=== PATIENT | male | born 1945 | race Caucasian/White ===

== ENCOUNTER 2016-11-18 14:08 | Emergency (ER) | END 2016-11-18 14:44 | disposition left against medical advice (07) | LOC: UCEAST 14:08 | DX: J02.9 Acute pharyngitis, unspecified (principal); R05 Cough; Z53.21 Procedure and treatment not carried out due to patient leaving prior to being seen by health care provider ==

== ENCOUNTER 2016-11-20 17:55 | Emergency (ER) | payer SELFPAY ==
[2016-11-20] MEDS ORDERED: Morphine INJ* 2 MG/ML 1 ML SYRINGE IV ONE (19:38)
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
[2016-11-20 20:56] LABS: Hematocrit 42 % (42-52); Hemoglobin 13.8 g/dl (14.0-18.0); Mean Corpuscular HGB Conc 33 g/dl (31-36); Mean Corpuscular Hemoglobin 31 pg (27-31); Mean Corpuscular Volume 94 fL (80-94); Mean Platelet Volume 8 um3 (7.4-10.4); Red Blood Count 4.44 10^6/ul (4.0-5.4); Red Cell Distribution Width 14 % (10.5-15); White Blood Count 12.2 10^3/ul (3.5-10.8)
[2016-11-20 21:02] LABS: Urine Bacteria Absent (Absent); Urine Bilirubin Negative (Negative); Urine Glucose 3+(>=500 mg/dL) (Negative); Urine Nitrite Negative (Negative)
[2016-11-20 21:10] LABS: Albumin 4.6 g/dL (3.2-5.2); BUN/Creatinine Ratio 21.9 (8-20); Calcium 9.2 mg/dL (8.6-10.3); EGFR African American 81.7 (>60); EGFR Non-African American 63.5 (>60); Globulin 2.8 g/dL (2-4); Potassium 4.1 mmol/L (3.5-5.0); Total Bilirubin 0.3 mg/dL (0.2-1.0); Total Protein 7.4 g/dL (6.4-8.9)
[2016-11-20] MEDS ORDERED: Iohexol 300* (CONTRAST) 10 ML SDV IV ONE (21:15)
[2016-11-20] MEDS ORDERED: Iodixanol 320 (CONTRAST) 100 ML SDV IV ONE (21:16)
[2016-11-20 22:04] LABS: Troponin I 0.03 ng/mL (<0.04)
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
[2016-11-20] MEDS ORDERED: Tetan/Diph/Pertus SYR(Tdap)* 0.5 ML SYR(BOOSTRIX) use SYR IM ONE (22:29)
[2016-11-20 22:50] VITALS: BP 125/67
[2016-11-20] MEDS ORDERED: oxyCODONE/Acetamin 5/325 MG* TAB PO ONE (22:51)
== END 2016-11-20 23:18 | disposition home or self-care (01) ==
LOC: ED 17:55
DX: S50.11XA Contusion of right forearm, initial encounter (principal); R07.9 Chest pain, unspecified; R05 Cough; M79.1 Myalgia; V49.9XXA Car occupant (driver) (passenger) injured in unspecified traffic accident, initial encounter; Y93.89 Activity, other specified; Y92.9 Unspecified place or not applicable
CPT/HCPCS: 36415; 70450; 71260; 72125; 74177; 80053; 81003; 81015; 82550; 83605; 84484; 85025; 90715; 93005; 99283; A9270-GY; J2270; Q9967

== ENCOUNTER 2017-03-09 18:31 | Emergency (ER) | payer BC, OTHER ==
--- NOTE | 2017-03-09 20:25 | RAD ---
INDICATION: Right lower extremity swelling. COMPARISON: Comparison is made with a prior right lower extremity venous duplex study from January 09, 2011. TECHNIQUE: Multiple real-time, color flow and Doppler tracings of the right lower extremity were obtained. FINDINGS: The common femoral and profunda femoral veins demonstrate normal compressibility, augmentation with compression and phasic response with respiration. The mid and distal femoral vein is duplicated. There is chronic occlusive thrombus in one limb of the duplication the other limb appears patent without evidence for thrombus. The popliteal vein is also duplicated. One limb of the duplication is patent without thrombus and the other limb is partially occluded with age indeterminate thrombus. The posterior tibial and peroneal veins demonstrate normal compressibility and augmentation with compression. IMPRESSION: 1. AGE-INDETERMINATE DEEP VENOUS THROMBUS IN ONE LIMB OF THE DUPLICATED POPLITEAL VEIN. 2. CHRONIC DEEP VENOUS THROMBUS IN ONE LIMB OF THE DUPLICATED FEMORAL VEIN.
[2017-03-09 20:37] LABS: Hematocrit 38 % (42-52); Hemoglobin 13.1 g/dl (14.0-18.0); Mean Corpuscular HGB Conc 34 g/dl (31-36); Mean Corpuscular Hemoglobin 31 pg (27-31); Mean Corpuscular Volume 90 fL (80-94); Mean Platelet Volume 8 um3 (7.4-10.4); Red Blood Count 4.25 10^6/ul (4.0-5.4); Red Cell Distribution Width 13 % (10.5-15); White Blood Count 8.6 10^3/ul (3.5-10.8)
[2017-03-09 20:52] LABS: Albumin 3.9 g/dL (3.2-5.2); BUN/Creatinine Ratio 21.9 (8-20); Calcium 9.5 mg/dL (8.6-10.3); EGFR African American 71.5 (>60); EGFR Non-African American 55.6 (>60); Globulin 2.7 g/dL (2-4); Potassium 4.1 mmol/L (3.5-5.0); Total Bilirubin 0.3 mg/dL (0.2-1.0); Total Protein 6.6 g/dL (6.4-8.9)
[2017-03-09] MEDS ORDERED: Iodixanol* (CONTRAST) 320 MG/ML 100 ML SDV IV ONE (20:55)
--- NOTE | 2017-03-09 21:33 | RAD ---
INDICATION: Proximal DVT and evaluate for pulmonary embolism. COMPARISON: Comparison is made with a prior CT of the chest from November 20, 2016. TECHNIQUE: A CT angiogram of the chest was performed with intravenous following intravenous injection of 89 ml of Visipaque 320 nonionic contrast. Contiguous axial sections were obtained from the lung apices through the lung bases. Images were reconstructed in the coronal and sagittal planes. FINDINGS: There is good opacification of the pulmonary arteries. No intraluminal filling defect or pulmonary embolism is seen. The heart is within normal limits in size. There are coronary artery calcifications present. No pericardial effusion is present. The thoracic aorta is normal in caliber and demonstrates homogeneous contrast opacification. No significant enlarged mediastinal or hilar lymph nodes are seen. There is mild dependent bilateral lower lobe subsegmental atelectasis. The lungs are otherwise clear. No pleural effusion is seen. No significant focal osseous abnormality is seen. IMPRESSION: NO EVIDENCE FOR PULMONARY EMBOLISM.
[2017-03-09] MEDS ORDERED: Rivaroxaban TAB(*) 15 MG PO ONE (21:45)
[2017-03-09 23:10] VITALS: BP 123/71
--- NOTE | 2017-03-27 13:12 | ED ---
Delaney Gipson Gabriel, scribed for Devin Pruett MD on 03/09/17 at 1940 . Lower Extremity - HPI Summary HPI Summary: This patient is a 71 year old M presenting to [facility] accompanied by with a chief complaint of right leg pain since 4 days ago. The patient rates the pain 3 /10 in severity. Patient reports swelling, weakness, and sciatic pain on sitting. Patient denies bowel incontinence. Was recently on a vacation in [place] that required frequent walking and he collapsed. - History of Current Complaint Chief Complaint: EDExtremityLower Stated Complaint: PAIN AND SWOLLEN IN RT LEG Time Seen by Provider: 03/09/17 19:34 Hx Obtained From: Patient Onset of Pain: Days - 4 Onset/Duration: Still Present Pain Intensity: 3 Pain Scale Used: 0-10 Numeric Associated Signs And Symptoms: Positive: Negative - bowel incontinence, Swelling , Redness Able to Bear Weight: Yes - Allergies/Home Medications Allergies/Adverse Reactions: Allergies Allergy/AdvReac Type Severity Reaction Status Date / Time Adhesive Tape [Silk Tape] Allergy Unknown Verified 03/09/17 18:33 Reaction Details Latex Allergy Swelling Verified 03/09/17 18:33 PMH/Surg Hx/FS Hx/Imm Hx Previously Healthy: No Endocrine/Hematology History: Reports: Hx Anticoagulant Therapy, Hx Diabetes Denies: Hx Sickle Cell Disease, Hx Thyroid Disease, Hx Anemia, Hx Unexplained Bleeding Cardiovascular History: Reports: Hx Cardiomegaly, Hx Coronary Artery Disease, Hx Deep Vein Thrombosis, Hx Hypercholesterolemia, Hx Peripheral Vascular Disease , Other Cardiovascular Problems/Disorders - BLOOD CLOTS TO LEGS X2 Denies: Hx Aneurysm, Hx Angina, Hx Angioplasty, Hx Auto Implanted Cardiovert Defib, Hx Cardiac Arrest, Hx Congenital Heart Disease, Hx Congestive Heart Failure, Hx Embolism, Hx Hypotension, Hx Hypertension, Hx Pacemaker/ICD, Hx Rheumatic Fever, Hx Syncope, Hx Valvular Heart Disease Respiratory History: Reports: Hx Asthma, Hx Chronic Bronchitis, Hx Pneumonia, Hx Sleep Apnea, Other Respiratory Problems/Disorders - FREQUENT PNEUMONIA Denies: Hx Pulmonary Embolism, Hx Seasonal Allergies GI History: Reports: Other GI Disorders - 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 Denies: Hx Cirrhosis, Hx Crohn's Disease, Hx Diverticulosis, Hx Gall Bladder Disease, Hx Gastroesophageal Reflux Disease, Hx Gastrointestinal Bleed, Hx Hiatal Hernia, Hx Irritable Bowel, Hx Jaundice, Hx Obstructive Bowel, Hx Ileostomy, Hx Pyloric Stenosis, Hx Ulcer History: Reports: Other Problems/Disorders - Continent urinary diversion at [facility] Denies: Hx Acute Renal Failure, Hx Benign Prostatic Hyperplasia, Hx Chronic Renal Failure, Hx Dialysis, Hx Kidney Infection, Hx Kidney Stones Musculoskeletal History: Reports: Hx Arthritis, Hx Back Problems, Hx Bursitis - KNEE, Other Musculoskeletal History - osteomyleitis Denies: Hx Gout, Hx Osteoporosis, Hx Scoliosis Sensory History: Reports: Hx Contacts or Glasses - reading Denies: Hx Hearing Aid Opthamlomology History: Reports: Hx Contacts or Glasses - reading Neurological History: Reports: 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 Denies: Hx Seizures, Hx Spinal Cord Injury, Hx Transient Ischemic Attacks ( TIA) Psychiatric History: Denies: Hx Panic Disorder - Cancer History Cancer Type, Location and Year: prostate cancer Hx Chemotherapy: No Hx Radiation Therapy: Yes - Proton Radiation Hx Palliative Cancer Treatment: No - Surgical History Surgery Procedure, Year, and Place: appendix, tonsils, prostatectomy, urinary incontinence diversion 2002, rt foot x9, left foot x5, hernia repair,cardiac stent 04/08/13 pt has stent card please make copy for mri scan Hx Anesthesia Reactions: No - Immunization History Date of Influenza Vaccine: 11/2016 Infectious Disease History: No Infectious Disease History: Denies: Hx Clostridium Difficile, Hx Hepatitis, Hx Human Immunodeficiency Virus (HIV), Hx of Known/Suspected MRSA, Hx Shingles, Hx Tuberculosis, Hx Known/ Suspected VRE, Hx Known/Suspected VRSA, History Other Infectious Disease, Traveled Outside the [place] in Last 30 Days - Family History Known Family History: Positive: Other - neg: anaesthesia reaction - Social History Alcohol Use: Occasionally Alcohol Amount: 1 drink per month Hx Substance Use: No Substance Use Type: Reports: None Hx Tobacco Use: No Smoking Status (MU): Never Smoked Tobacco Have You Smoked in the Last Year: No Review of Systems Negative: Fever, Chills Negative: Erythema Negative: Sore Throat Negative: Chest Pain Negative: Shortness Of Breath, Cough Gastrointestinal: Negative - bowel incontinence Negative: Abdominal Pain, Vomiting, Nausea Negative: dysuria, hematuria Positive: Other - pain in LE, swelling in LE . Negative: Myalgia, Edema Negative: Rash Neurological: Negative - dizziness, Other - sciatic pain on sitting Positive: Weakness All Other Systems Reviewed And Are Negative: Yes Physical Exam - Summary Physical Exam Summary: Constitutional: Well-developed, Well-nourished, Alert. (-) Distressed Skin: Warm, Dry HENT: Normocephalic; Atraumatic Eyes: Conjunctiva normal Neck: Musculoskeletal ROM normal neck. (-) JVD, (-) Stridor, (-) Tracheal deviation Cardio: Rhythm regular, rate normal, Heart sounds normal; Intact distal pulses; The pedal pulses are 2+ and symmetric. Radial pulses are 2+ and symmetric. (-) Murmur Pulmonary/Chest wall: Effort normal. (-) Respiratory distress, (-) Wheezes, (-) Rales Abd: Soft, (-) Tenderness, (-) Distension, (-) Guarding, (-) Rebound Musculoskeletal: (-) Edema. Extremities: Right calf tenderness, venous stasis, and skins changes in both LE below the knee Lymph: (-) Cervical adenopathy Neuro: Alert, Oriented x3 Psych: Mood and affect Normal Triage Information Reviewed: Yes Vital Signs On Initial Exam: Initial Vitals Temp Pulse Resp BP Pulse Ox 97.8 F 81 16 119/84 96 03/09/17 18:33 03/09/17 18:33 03/09/17 18:33 03/09/17 18:33 03/09/17 18:33 Vital Signs Reviewed: Yes Diagnostics - Vital Signs Vital Signs Temp Pulse Resp BP Pulse Ox 03/09/17 18:33 97.8 F 81 16 119/84 96 - Laboratory Result Diagrams: 03/09/17 20:30 03/09/17 20:30 Lab Statement: Any lab studies that have been ordered have been reviewed, and results considered in the medical decision making process. - CT CTA Chest/Thorax CT Interpretation Completed By: Radiologist - NO EVIDENCE FOR PULMONARY EMBOLISM. ED physician has reviewed this report and agrees. - Additional Comments Diagnostic Additional Comments: Venous Doppler study reveals, per radiologist, 1. AGE-INDETERMINATE DEEP VENOUS THROMBUS IN ONE LIMB OF THE DUPLICATED POPLITEAL VEIN. 2. CHRONIC DEEP VENOUS THROMBUS IN ONE LIMB OF THE DUPLICATED FEMORAL VEIN. ED physician has reviewed this radiology report and agrees. Lower Extremity Course/Dx - Course Assessment/Plan: This patient is a 71 year old M presenting to [facility] accompanied by with a chief complaint of right leg pain since 4 days ago. The patient rates the pain 3/10 in severity. Patient reports swelling, weakness , and sciatic pain on sitting. Patient denies bowel incontinence. Was recently on a vacation in [place] that required frequent walking and he collapsed. Blood tests were drawn. Venous Doppler study reveals, per radiologist, 1. AGE- INDETERMINATE DEEP VENOUS THROMBUS IN ONE LIMB OF THE DUPLICATED POPLITEAL VEIN. 2. CHRONIC DEEP VENOUS THROMBUS IN ONE LIMB OF THE DUPLICATED FEMORAL VEIN. CTA Chest/ Thorax reveal, per radiologist, NO EVIDENCE FOR PULMONARY EMBOLISM. In the ED course the patient was given Iodixanol and Rivaroxaban. Patient will be discharged with prescription for Rivaroxaban and follow up from [facility]. The patient is agreeable with this plan. - Diagnoses Provider Diagnoses: DVT (deep venous thrombosis) Discharge - Discharge Plan Condition: Stable Disposition: HOME Prescriptions: Rivaroxaban [Xarelto Starter Pack 15 & 20 mg] 1 packet PO SEE INSTRUCTIONS #1 packet Patient Education Materials: Rivaroxaban (By mouth), Deep Venous Thrombosis (ED ) Referrals: [facility] PHYSICIAN REFERRAL [Outside] Additional Instructions: Return to emergency department for new or worsening symptoms. Follow up with [facility] provider in 3 days. The documentation as recorded by the Delaney rawls Gabriel accurately reflects the service I personally performed and the decisions made by , Devin Pruett MD.
== END 2017-03-09 23:10 | disposition home or self-care (01) ==
LOC: ED 18:31
DX: I82.511 Chronic embolism and thrombosis of right femoral vein (principal); E11.9 Type 2 diabetes mellitus without complications; Z79.01 Long term (current) use of anticoagulants; I25.10 Atherosclerotic heart disease of native coronary artery without angina pectoris; E78.00 Pure hypercholesterolemia, unspecified; Z86.718 Personal history of other venous thrombosis and embolism; I73.9 Peripheral vascular disease, unspecified; I51.7 Cardiomegaly
CPT/HCPCS: 36415; 71275; 80053; 85027; 85610; 85730; 96374; 99284; Q9967

== ENCOUNTER 2017-03-11 18:34 | Emergency (ER) | payer BC ==
[2017-03-11] MEDS ORDERED: Ketorolac INJ* 60 MG/2 ML VIAL IM ONE (20:33)
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
[2017-03-11 21:34] LABS: Hematocrit 40 % (42-52); Hemoglobin 13.5 g/dl (14.0-18.0); Mean Corpuscular HGB Conc 34 g/dl (31-36); Mean Corpuscular Hemoglobin 31 pg (27-31); Mean Corpuscular Volume 90 fL (80-94); Mean Platelet Volume 7 um3 (7.4-10.4); Red Cell Distribution Width 13 % (10.5-15); White Blood Count 8.1 10^3/ul (3.5-10.8)
[2017-03-11 21:49] LABS: Albumin 4.3 g/dL (3.2-5.2); BUN/Creatinine Ratio 23.6 (8-20); Calcium 9.2 mg/dL (8.6-10.3); EGFR African American 85.1 (>60); EGFR Non-African American 66.2 (>60); Globulin 2.5 g/dL (2-4); Potassium 4.3 mmol/L (3.5-5.0); Total Bilirubin 0.2 mg/dL (0.2-1.0); Total Protein 6.8 g/dL (6.4-8.9)
[2017-03-11 22:38] LABS: Erythrocyte Sed Rate 13 mm/Hr (0-40)
[2017-03-11] MEDS ORDERED: HYDROcodone/ACETAMIN 5-325 MG* 1 TAB PO ONE ×2 (23:09)
--- NOTE | 2017-03-11 23:09 | ED ---
Lower Extremity <Ivon Goldman - Last Filed: 03/12/17 00:32> - HPI Summary HPI Summary: Patient presents to the ED with CC of right calf pain which is worse than 2 days when he was seen here for pain in the calf which was dx as a DVT. Denies worsening neuropathy. He was seen by Dr. Pruett and given xarelto starter pack. Impressions of the [place] indicated there is a 1> AGE INTDETERMINATE DEEP VENOUS THROMBUS IN ONE LIMP OF THE DUPLICATED POPLITEAL VEIN. 2. CHRONIC DEEP VENOUS THROMBUS IN ONE LIMB OF THE DUPLICATED FEMORAL VEIN. Chest CT also performed which shows: Impression: NO EVIDENCE OF PULMONARY EMBOLISM. He returns today with worsening pain. Pain is discretely located over the anterior knee and posterior calf. Worse with walking, better with rest. He states he first noticed the pain when he stepped off his stairs to go to work. He felt immediate pain and a "hard" feeling down the calf. He had to use his cane to go to work. 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 He states "something definitely has gotten worse" when discussing his symptoms. Denies chest pain or SOB. He was able to belt picker the medication which he began the same day. Hx includes ostomy s/p prostate CA and removal of prostate, right lower extremity cellulitis, chronic venous stasis, metatarsal removal in right foot, neuropathy, NM, HCL, 2 previous episodes of thrombosis (most recently 10 years ago) and was placed on coumadin (after 1st DVT) for several years. He was also previously placed on Clopidigrel for 4 years s/p 2nd spontaneous DVT. He also takes a baby aspirin daily through his correctional manager Dr. Jones which he continues to take. Prior to this episode (2 days ago) of spontaneous DVT, he had not been taking or prescribed any other anticoagulants. He has recently moved back and has not been established with his new physician Dr. Siegel, however has an appt tomorrow morning at 9am. Denies fevers, sweats, chills. - History of Current Complaint Hx Obtained From: Patient, Family/Digital Designer Onset of Pain: Immediate Onset/Duration: Hours Severity Initially: Moderate Severity Currently: Moderate Pain Intensity: 7 Pain Scale Used: 0-10 Numeric Timing: Constant Location: Is Discrete @ - right posterior calf Character Of Pain: Aching Associated Signs And Symptoms: Positive: Redness, Bruising Alleviating Factor(s): Rest Able to Bear Weight: No - Risk Factors Gout Risk Factors: Age Over 40, Male, Hypertension, Hyperlipidemia, Peripherial Vascular Disease DVT Risk Factors: Negative Septic Arthritis Risk Factor: Extremes of Age, Pre-existing Joint Disease <Codie Stoddard Jay - Last Filed: 03/12/17 08:21> - History of Current Complaint Chief Complaint: EDExtremityLower Stated Complaint: RT LEG PAINFUL-HERE 03/09 FOR BLOOD CLOT Time Seen by Provider: 03/11/17 19:38 - Allergies/Home Medications Allergies/Adverse Reactions: Allergies Allergy/AdvReac Type Severity Reaction Status Date / Time Adhesive Tape [Silk Tape] Allergy Unknown Verified 03/09/17 18:33 Reaction Details Latex Allergy Swelling Verified 03/09/17 18:33 PMH/Surg Hx/FS Hx/Imm Hx Previously Healthy: No Endocrine/Hematology History: Reports: Hx Anticoagulant Therapy, Hx Diabetes Denies: Hx Sickle Cell Disease, Hx Thyroid Disease, Hx Anemia, Hx Unexplained Bleeding Cardiovascular History: Reports: Hx Cardiomegaly, Hx Coronary Artery Disease, Hx Deep Vein Thrombosis, Hx Hypercholesterolemia, Hx Peripheral Vascular Disease , Other Cardiovascular Problems/Disorders - BLOOD CLOTS TO LEGS X2 Denies: Hx Aneurysm, Hx Angina, Hx Angioplasty, Hx Auto Implanted Cardiovert Defib, Hx Cardiac Arrest, Hx Congenital Heart Disease, Hx Congestive Heart Failure, Hx Embolism, Hx Hypotension, Hx Hypertension, Hx Pacemaker/ICD, Hx Rheumatic Fever, Hx Syncope, Hx Valvular Heart Disease Respiratory History: Reports: Hx Asthma, Hx Chronic Bronchitis, Hx Pneumonia, Hx Sleep Apnea, Other Respiratory Problems/Disorders - FREQUENT PNEUMONIA Denies: Hx Pulmonary Embolism, Hx Seasonal Allergies GI History: Reports: Other GI Disorders - 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 Denies: Hx Cirrhosis, Hx Crohn's Disease, Hx Diverticulosis, Hx Gall Bladder Disease, Hx Gastroesophageal Reflux Disease, Hx Gastrointestinal Bleed, Hx Hiatal Hernia, Hx Irritable Bowel, Hx Jaundice, Hx Obstructive Bowel, Hx Ileostomy, Hx Pyloric Stenosis, Hx Ulcer History: Reports: Other Problems/Disorders - Continent urinary diversion at [facility] Denies: Hx Acute Renal Failure, Hx Benign Prostatic Hyperplasia, Hx Chronic Renal Failure, Hx Dialysis, Hx Kidney Infection, Hx Kidney Stones Musculoskeletal History: Reports: Hx Arthritis, Hx Back Problems, Hx Bursitis - KNEE, Other Musculoskeletal History - osteomyleitis Denies: Hx Gout, Hx Osteoporosis, Hx Scoliosis Sensory History: Reports: Hx Contacts or Glasses - reading Denies: Hx Hearing Aid Opthamlomology History: Reports: Hx Contacts or Glasses - reading Neurological History: Reports: 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 Denies: Hx Seizures, Hx Spinal Cord Injury, Hx Transient Ischemic Attacks ( TIA) Psychiatric History: Denies: Hx Panic Disorder - Cancer History Cancer Type, Location and Year: prostate cancer Hx Chemotherapy: No Hx Radiation Therapy: Yes - Proton Radiation Hx Palliative Cancer Treatment: No - Surgical History Surgery Procedure, Year, and Place: appendix, tonsils, prostatectomy, urinary incontinence diversion 2002, rt foot x9, left foot x5, hernia repair,cardiac stent 04/08/13 pt has stent card please make copy for mri scan Hx Anesthesia Reactions: No - Immunization History Date of Influenza Vaccine: 11/2016 Hx Pertussis Vaccination: No Immunizations Up to Date: Unable to Obtain/Confirm Infectious Disease History: No Infectious Disease History: Denies: Hx Clostridium Difficile, Hx Hepatitis, Hx Human Immunodeficiency Virus (HIV), Hx of Known/Suspected MRSA, Hx Shingles, Hx Tuberculosis, Hx Known/ Suspected VRE, Hx Known/Suspected VRSA, History Other Infectious Disease, Traveled Outside the [place] in Last 30 Days - Family History Known Family History: Positive: Other - neg: anaesthesia reaction - Social History Occupation: Employed Full-time Lives: With Family Alcohol Use: Occasionally Alcohol Amount: 1 drink per month Hx Substance Use: No Substance Use Type: Reports: None Hx Tobacco Use: No Smoking Status (MU): Never Smoked Tobacco Have You Smoked in the Last Year: No <Codie Stoddard - Last Filed: 03/12/17 08:21> Review of Systems Constitutional: Negative Negative: Fever, Fatigue, Skin Diaphoresis Eyes: Negative Cardiovascular: Negative Respiratory: Negative Positive: no symptoms reported, see HPI, other - ostomy Positive: Myalgia - right posterior calf pain/ anterior knee discomfort with movement Positive: Other - chronic venous stasis with venous color changes and dusky red to the medial calf extending into the foot Neurological: Negative Psychological: Normal All Other Systems Reviewed And Are Negative: Yes <Codie Stoddard - Last Filed: 03/12/17 08:21> Physical Exam Vital Signs On Initial Exam: Initial Vitals Temp Pulse Resp BP Pulse Ox 97.9 F 59 18 127/69 97 03/11/17 18:39 03/11/17 18:39 03/11/17 18:39 03/11/17 18:39 03/11/17 18:39 <Ivon Goldman - Last Filed: 03/12/17 00:32> Triage Information Reviewed: Yes Vital Signs On Initial Exam: Initial Vitals Temp Pulse Resp BP Pulse Ox 97.9 F 59 18 127/69 97 03/11/17 18:39 03/11/17 18:39 03/11/17 18:39 03/11/17 18:39 03/11/17 18:39 Vital Signs Reviewed: Yes Appearance: Positive: Well-Appearing, No Pain Distress Skin: Positive: Skin Color Reflects Adequate Perfusion, Scaly Skin/Lesions - dark dusky erythematous venous stasis to the right medial calf extending into the foot, Erythema @ - medial calf Head/Face: Positive: Normal Head/Face Inspection Eyes: Positive: EOMI, Conjunctiva Clear Respiratory/Lung Sounds: Positive: Clear to Auscultation, Breath Sounds Present Musculoskeletal: Positive: Pain @ - right calf pain with plantar flexion Neurological: Positive: Speech Normal Psychiatric: Positive: Affect/Mood Appropriate - [place] Coma Scale Coma Scale Total: 15 <Codie Stoddard - Last Filed: 03/12/17 08:21> Diagnostics - Vital Signs Vital Signs Temp Pulse Resp BP Pulse Ox 03/11/17 18:39 97.9 F 59 18 127/69 97 - Laboratory Lab Results: Lab Results 03/11/17 03/11/17 03/11/17 Range/Units 21:20 21:20 21:20 WBC 8.1 (3.5-10.8) 10^3/ul RBC 4.40 (4.0-5.4) 10^6/ul Hgb 13.5 L (14.0-18.0) g/dl Hct 40 L (42-52) % MCV 90 (80-94) fL MCH 31 (27-31) pg MCHC 34 (31-36) g/dl RDW 13 (10.5-15) % Plt Count 252 (150-450) 10^3/ul MPV 7 L (7.4-10.4) um3 Neut % (Auto) 62.3 (38-83) % Lymph % (Auto) 22.7 L (25-47) % Dubois % (Auto) 10.2 H (1-9) % Eos % (Auto) 3.8 (0-6) % Baso % (Auto) 1.0 (0-2) % Absolute Neuts (auto) 5.0 (1.5-7.7) 10^3/ul Absolute Lymphs (auto) 1.8 (1.0-4.8) 10^3/ul Absolute Monos (auto) 0.8 (0-0.8) 10^3/ul Absolute Eos (auto) 0.3 (0-0.6) 10^3/ul Absolute Basos (auto) 0.1 (0-0.2) 10^3/ul Absolute Nucleated RBC 0.01 10^3/ul Nucleated RBC % 0.1 ESR 13 (0-40) mm/Hr D-Dimer, Quantitative < 200 (Less Than 230) ng/mL Sodium 139 (133-145) mmol/L Potassium 4.3 (3.5-5.0) mmol/L Chloride 109 (101-111) mmol/L Carbon Dioxide 25 (22-32) mmol/L Anion Gap 5 (2-11) mmol/L BUN 26 H (6-24) mg/dL Creatinine 1.10 (0.67-1.17) mg/dL Est GFR ( Amer) 85.1 (>60) Est GFR (Non-Af Amer) 66.2 (>60) BUN/Creatinine Ratio 23.6 H (8-20) Glucose 180 H (70-100) mg/dL Lactic Acid (0.5-2.0) mmol/L Calcium 9.2 (8.6-10.3) mg/dL Total Bilirubin 0.20 (0.2-1.0) mg/dL AST 16 (13-39) U/L ALT 19 (7-52) U/L Alkaline Phosphatase 64 (34-104) U/L Total Creatine Kinase 100 (10-223) U/L CK-MB (CK-2) 5.1 (0.6-6.3) ng/mL Myoglobin 57.7 (17.4-105.7) ng/mL Total Protein 6.8 (6.4-8.9) g/dL Albumin 4.3 (3.2-5.2) g/dL Globulin 2.5 (2-4) g/dL Albumin/Globulin Ratio 1.7 (1-3) 03/11/17 Range/Units 21:20 WBC (3.5-10.8) 10^3/ul RBC (4.0-5.4) 10^6/ul Hgb (14.0-18.0) g/dl Hct (42-52) % MCV (80-94) fL MCH (27-31) pg MCHC (31-36) g/dl RDW (10.5-15) % Plt Count (150-450) 10^3/ul MPV (7.4-10.4) um3 Neut % (Auto) (38-83) % Lymph % (Auto) (25-47) % Dubois % (Auto) (1-9) % Eos % (Auto) (0-6) % Baso % (Auto) (0-2) % Absolute Neuts (auto) (1.5-7.7) 10^3/ul Absolute Lymphs (auto) (1.0-4.8) 10^3/ul Absolute Monos (auto) (0-0.8) 10^3/ul Absolute Eos (auto) (0-0.6) 10^3/ul Absolute Basos (auto) (0-0.2) 10^3/ul Absolute Nucleated RBC 10^3/ul Nucleated RBC % ESR (0-40) mm/Hr D-Dimer, Quantitative (Less Than 230) ng/mL Sodium (133-145) mmol/L Potassium (3.5-5.0) mmol/L Chloride (101-111) mmol/L Carbon Dioxide (22-32) mmol/L Anion Gap (2-11) mmol/L BUN (6-24) mg/dL Creatinine (0.67-1.17) mg/dL Est GFR ( Amer) (>60) Est GFR (Non-Af Amer) (>60) BUN/Creatinine Ratio (8-20) Glucose (70-100) mg/dL Lactic Acid 1.1 (0.5-2.0) mmol/L Calcium (8.6-10.3) mg/dL Total Bilirubin (0.2-1.0) mg/dL AST (13-39) U/L ALT (7-52) U/L Alkaline Phosphatase (34-104) U/L Total Creatine Kinase (10-223) U/L CK-MB (CK-2) (0.6-6.3) ng/mL Myoglobin (17.4-105.7) ng/mL Total Protein (6.4-8.9) g/dL Albumin (3.2-5.2) g/dL Globulin (2-4) g/dL Albumin/Globulin Ratio (1-3) Result Diagrams: 03/11/17 21:20 03/11/17 21:20 Lab Statement: Any lab studies that have been ordered have been reviewed, and results considered in the medical decision making process. - Ultrasound No standard instances Ultrasound Interpretation: No Acute Changes Ultrasound Interpretation Completed By: Radiologist - Sinan Finn MD, No change compared with 03/09/17: Chronic DVT mid right femoral vein (one of two duplicated femoral veins, while the other right femoral vein remains patent.) Chronic nonocculsive DVT right popliteal vein. Previously seen popliteal vein duplication not appreciated on current exam. <Ivon Goldman - Last Filed: 03/12/17 00:32> - Vital Signs Vital Signs Temp Pulse Resp BP Pulse Ox 03/11/17 18:39 97.9 F 59 18 127/69 97 - Laboratory Lab Results: Lab Results 03/11/17 03/11/17 03/11/17 Range/Units 21:20 21:20 21:20 WBC 8.1 (3.5-10.8) 10^3/ul RBC 4.40 (4.0-5.4) 10^6/ul Hgb 13.5 L (14.0-18.0) g/dl Hct 40 L (42-52) % MCV 90 (80-94) fL MCH 31 (27-31) pg MCHC 34 (31-36) g/dl RDW 13 (10.5-15) % Plt Count 252 (150-450) 10^3/ul MPV 7 L (7.4-10.4) um3 Neut % (Auto) 62.3 (38-83) % Lymph % (Auto) 22.7 L (25-47) % Dubois % (Auto) 10.2 H (1-9) % Eos % (Auto) 3.8 (0-6) % Baso % (Auto) 1.0 (0-2) % Absolute Neuts (auto) 5.0 (1.5-7.7) 10^3/ul Absolute Lymphs (auto) 1.8 (1.0-4.8) 10^3/ul Absolute Monos (auto) 0.8 (0-0.8) 10^3/ul Absolute Eos (auto) 0.3 (0-0.6) 10^3/ul Absolute Basos (auto) 0.1 (0-0.2) 10^3/ul Absolute Nucleated RBC 0.01 10^3/ul Nucleated RBC % 0.1 ESR 13 (0-40) mm/Hr D-Dimer, Quantitative < 200 (Less Than 230) ng/mL Sodium 139 (133-145) mmol/L Potassium 4.3 (3.5-5.0) mmol/L Chloride 109 (101-111) mmol/L Carbon Dioxide 25 (22-32) mmol/L Anion Gap 5 (2-11) mmol/L BUN 26 H (6-24) mg/dL Creatinine 1.10 (0.67-1.17) mg/dL Est GFR ( Amer) 85.1 (>60) Est GFR (Non-Af Amer) 66.2 (>60) BUN/Creatinine Ratio 23.6 H (8-20) Glucose 180 H (70-100) mg/dL Lactic Acid (0.5-2.0) mmol/L Calcium 9.2 (8.6-10.3) mg/dL Total Bilirubin 0.20 (0.2-1.0) mg/dL AST 16 (13-39) U/L ALT 19 (7-52) U/L Alkaline Phosphatase 64 (34-104) U/L Total Creatine Kinase 100 (10-223) U/L CK-MB (CK-2) 5.1 (0.6-6.3) ng/mL Myoglobin 57.7 (17.4-105.7) ng/mL Total Protein 6.8 (6.4-8.9) g/dL Albumin 4.3 (3.2-5.2) g/dL Globulin 2.5 (2-4) g/dL Albumin/Globulin Ratio 1.7 (1-3) 03/11/17 Range/Units 21:20 WBC (3.5-10.8) 10^3/ul RBC (4.0-5.4) 10^6/ul Hgb (14.0-18.0) g/dl Hct (42-52) % MCV (80-94) fL MCH (27-31) pg MCHC (31-36) g/dl RDW (10.5-15) % Plt Count (150-450) 10^3/ul MPV (7.4-10.4) um3 Neut % (Auto) (38-83) % Lymph % (Auto) (25-47) % Dubois % (Auto) (1-9) % Eos % (Auto) (0-6) % Baso % (Auto) (0-2) % Absolute Neuts (auto) (1.5-7.7) 10^3/ul Absolute Lymphs (auto) (1.0-4.8) 10^3/ul Absolute Monos (auto) (0-0.8) 10^3/ul Absolute Eos (auto) (0-0.6) 10^3/ul Absolute Basos (auto) (0-0.2) 10^3/ul Absolute Nucleated RBC 10^3/ul Nucleated RBC % ESR (0-40) mm/Hr D-Dimer, Quantitative (Less Than 230) ng/mL Sodium (133-145) mmol/L Potassium (3.5-5.0) mmol/L Chloride (101-111) mmol/L Carbon Dioxide (22-32) mmol/L Anion Gap (2-11) mmol/L BUN (6-24) mg/dL Creatinine (0.67-1.17) mg/dL Est GFR ( Amer) (>60) Est GFR (Non-Af Amer) (>60) BUN/Creatinine Ratio (8-20) Glucose (70-100) mg/dL Lactic Acid 1.1 (0.5-2.0) mmol/L Calcium (8.6-10.3) mg/dL Total Bilirubin (0.2-1.0) mg/dL AST (13-39) U/L ALT (7-52) U/L Alkaline Phosphatase (34-104) U/L Total Creatine Kinase (10-223) U/L CK-MB (CK-2) (0.6-6.3) ng/mL Myoglobin (17.4-105.7) ng/mL Total Protein (6.4-8.9) g/dL Albumin (3.2-5.2) g/dL Globulin (2-4) g/dL Albumin/Globulin Ratio (1-3) Result Diagrams: 03/11/17 21:20 03/11/17 21:20 Lab Statement: Any lab studies that have been ordered have been reviewed, and results considered in the medical decision making process. <Codie Stoddard - Last Filed: 03/12/17 08:21> Lower Extremity Course/Dx <Ivon Goldman - Last Filed: 03/12/17 00:32> - Course Course Of Treatment: During the course of treatment, CT obtained of the lower extremity. US obtained and labs. CT shows: IMPRESSION: NO ACUTE FRACTURE. SUPRAPATELLAR JOINT EFFUSION. SIMULTANEOUS EDEMA. Labs WNL and D-dimer obtained <200. Denies chest pain or SOB. Discussed with via phone course of treatment and previous US results. She appears to be concerned and upset stating "this is not what the other told me the other night" and stating one DVT was new while the other one was old. I have read the results several times to her stating one was "indeterminate age" and the other appeared to be old, however the inception of both are difficult to assess. I have agreed with Dr. Pruett who was the provider 2 nights ago with xarelto dose and necessity. called again to request all results to which I explained in depth over the phone for >30 minutes. She continues to be concerned and states she would like to take him to [place] if everything possible is not being done. I have assured her I am taking the situation seriously and have involved my medical coding specialist/ attending physician, Dr. Goldman who agrees to see patient and assess studies and any results thus far. I have signed out the patient to Dr. Goldman pending the results of the US. Pain medication and muscle relaxers prescribed by myself. Patient made aware of all results and agrees to continue to follow up with his PCP tomorrow morning as scheduled. I have discussed the possibility of remaining on life long anticoagulation medications d/t 3 spontaneous DVT's. Patient Ok with plan thus far and is agreeing to await the US results. Dr. Goldman takes over care at 11pm. - Diagnoses Differential Diagnosis/HQI/PQRI: Positive: DVT, Strain <Codie Stoddard - Last Filed: 03/12/17 08:21> - Diagnoses Provider Diagnoses: Right knee pain, DVT of lower extremity (deep venous thrombosis) Discharge <Ivon Goldman - Last Filed: 03/12/17 00:32> <Codie Stoddard - Last Filed: 03/12/17 08:21> - Discharge Plan Condition: Stable Disposition: HOME Prescriptions: Cyclobenzaprine TAB* [Flexeril 10 MG TAB*] 10 mg PO BID PRN #10 tab MDD 2 PRN Reason: Pain HYDROcodone/ACETAMIN 5-325 MG* [Roggen 5-325 TAB*] 1 tab PO Q4H PRN #12 tab MDD 6 PRN Reason: Pain Forms: *Work Release Referrals: Luis Felipe Jessica MD [Medical Doctor] - As Soon As Possible No Primary Care Phys,NOPCP [Primary Care Provider] - Prabha Washington MD [Medical Doctor] - 1 Day Additional Instructions: Continue with all your at home medications as prescribed. Follow up with your PCP tomorrow I have given you a prescription for muscle relaxer and pain management
[2017-03-11] MEDS ORDERED: Cyclobenzaprine TAB* 10 MG PO ONE (23:11)
[2017-03-12 00:52] VITALS: BP 122/65
--- NOTE | 2017-03-12 01:16 | ED ---
Progress - Progress Note Progress Note: Asked by KATIE Pappas to assist with evaluation of Mr. Carlton with worsening right leg pain today. Pt signed out to me with results of repeat right leg US pending. Pt was in ED 03/09/17, dx with right mid femoral chronic DVT and age indeterminate popliteal DVT in duplicated popliteal vein. Pt also had a negative CTA on 03/09/17. Pt was started on xarelto, and has a follow up appointment with Dr. Washington tomorrow 03/13/17 at 0900. Pt states today when he stepped down two stairs on his porch to go to work he felt increased pain in his post calf. He did not fall, he did not twist the knee that he knows of. Pt has been using a cane to ambulate since having the DVT. He states today the pain was much worse than it was 03/09/17 or yesterday. Pt has no redness or rash. No fever. Pt has no CP, no SOB. Pt has no groin pain, no hip pain, no trauma. Pain is in the front of the knee at the tibial tubercle and radiates around to the post calf. Pt states the calf "felt hard" earlier. Pt has hx chronic DVT's and has been followed by Dr. Prakash for this. Pt is just getting re-established with providers again in this area after being in the [facility]. Pt has hx neuropathy, and had the metatarsal heads removed in his right foot. Pt has also had hx Lyme disease that was treated. Denies new tick exposure, but states his only symptom in the past was fatigue. In the ED pt has had lab work which shows normal wbc count, normal d-dimer. CT of the lower leg which showed no fracture, prepatellar effusion and edema. Repeat US of right lower leg shows no change since 03/09/17 (preliminary, imaging sales assistants and salespersons reading). Full reading including in Codie Stoddard's note. I also spoke with of 43 years, by phone, who was concerned about the degree of pt's pain and we discussed his hx, his presentation today, his current labs and xray studies. PMH: neuropathy, recurrent DVT's, Lyme disease PSH: multiple orthopedic surgeries. fam hx, soc hx per Codie Stoddard's note. PE by me: Pt alert, resps unlabored. VS stable. HEENT: normal inspection Neck: supple Cor S1 S2 no murmur Lungs clear Abd soft, nontender. Extrem: brawny discoloration bilat lower extremities. No redness, no open wounds. Right calf measured 15cm from tibial tubercle is 34 cm, left calf measured 15cm from tibial tubercle is 33 cm. Bilat calves are soft, not tense. DP pulse in RLE is 2+. Max tenderness is right tibial tubercle and right post calf. Full flexion and extension of right knee. Minimal prepatellar effusion palpable, not red or hot, minimally tender. Neuro: A O x 3, GCS 15, moves all extremities well. No focal deficit. Able to ambulate with cane, c/o increased pain with weight bearing. Pain is a 2 when lying down. Skin: brawny changes bilate LE, not red or hot. No rash. Assessment plan: Pt with acute and chronic DVT on xarelto, presents with increased pain. No evidence of propagation of clot by US tonight. No fracture. +prepatellar effusion. No compartment syndrome. No definite explanation for pt's acute worsening pain, but no evidence of life or limb threatening presentation tonight. Pt has appointment with his PCP in am. Lyme serologies are sent to follow up on hx Lyme and worsening joint pain. Pt given Rx for flexeril and hydrocodone by Codie Stoddard. States he will sleep tonight and can start it in the am. Pt drove himself here tonight. I offered to dispense pain medication to take at home and pt declined. Pt also given Dr. Jessica's name, orthopedist, that he may follow up with ortho if the worsening pain continues, and if he needs further evaluation of the prepatellar effusion. Pt is ambulatory with his cane at discharge, and was wheeled to the front door for his comfort. Pt's "was asleep" when we tried to call her with the final US report. Pt states he will inform her of the results. Pt given copies of his labs and his studies from [facility] and from 03/09/17. Pt was not given the copy of the US tonight, as it is a preliminary reading. Pt and his understand that there will be a final reading of the US before noon 03/12/[address] Washington and/or they may call for that final report reading. We also advised them that we would notify them if there was any change in the reading. Diagnosis: right knee pain; right femoral and popliteal DVT Condition: stable Disposition: discharge home. Course/Dx - Diagnoses Provider Diagnoses: Right knee pain, DVT of lower extremity (deep venous thrombosis)
--- NOTE | 2017-03-12 07:26 | RAD ---
INDICATION: Deep venous thrombosis. COMPARISON: Comparison is made with a prior study from March 09, 2017. TECHNIQUE: Multiple real-time, color flow and Doppler tracings of the right lower extremity were obtained. FINDINGS: The common and profunda femoral veins demonstrate normal compressibility, augmentation with compression and phasic response with respiration. The mid and distal femoral vein is duplicated. There is chronic thrombus in one limb of the duplication. The other limb appears patent without evidence for thrombus which there is unchanged from the prior study. There is partially occlusive thrombus in the popliteal vein which appears unchanged. The posterior tibial and peroneal veins demonstrate normal compressibility and augmentation with compression. IMPRESSION: 1. CHRONIC OCCLUSIVE DEEP VENOUS THROMBOSIS IN ONE LIMB OF THE DUPLICATED FEMORAL VEIN. 2. PARTIALLY OCCLUSIVE THROMBUS IN THE POPLITEAL VEIN WHICH IS UNCHANGED FROM THE RECENT PRIOR STUDY.
== END 2017-03-12 00:37 | disposition home or self-care (01) ==
LOC: ED 18:34
DX: I82.401 Acute embolism and thrombosis of unspecified deep veins of right lower extremity (principal); M25.561 Pain in right knee
CPT/HCPCS: 36415; 80053; 82550; 82553; 83605; 83874; 85025; 85379; 85652; 86618; 99283; J1885

== ENCOUNTER 2018-04-15 13:27 | Inpatient (IN) | payer BC, MEDICARE ==
--- NOTE | 2018-04-15 13:53 | ED ---
Neurological HPI - HPI Summary HPI Summary: This patient is a 72 year old M presenting to [facility] with a chief complaint of difficulty walking since this morning at 10am. The patient rates the pain 5/10 in severity. Patient reports a fuzzy dizziness, inability to walk, and weakness in LEs. Patient denies GORDON, nausea, or CP. The patient was feeling normal at 9am. He says that he woke up at 10am, he had no control of his legs and ran into a wall. The patients symptoms improved with time and he was able to walk downstairs and eat breakfast before coming to the ED. He states that he has peripheral neuropathy in both of his feet but they do not usually stop him from being able to walk. In the ED, he is able to ambulate. PMHX MT 2 years ago , two stents placed. - History of Current Complaint Chief Complaint: EDNeurologicalDeficit Stated Complaint: DIZZINESS Hx Obtained From: Patient Onset/Duration: Sudden Onset, Started hours ago - 4 hours Timing: Intermittent Episodes Lasting: - an hour Onset Severity: Severe Current Severity: Mild Neurological Deficit Location: LUE, LLE Pain Intensity: 5 Pain Scale Used: 0-10 Numeric Character: Weak, Dizzy, Motor Weakness, Sensory Loss Associated Signs and Symptoms: Positive: Unsteady Gait, Weakness, Dizziness - Allergy/Home Medications Allergies/Adverse Reactions: Allergies Allergy/AdvReac Type Severity Reaction Status Date / Time Adhesive Tape [Silk Tape] Allergy Unknown Verified 03/09/17 18:33 Reaction Details latex Allergy Swelling Verified 04/15/18 14:17 PMH/Surg Hx/FS Hx/Imm Hx Endocrine/Hematology History: Reports: Hx Anticoagulant Therapy, Hx Diabetes Denies: Hx Sickle Cell Disease, Hx Thyroid Disease, Hx Anemia, Hx Unexplained Bleeding Cardiovascular History: Reports: Hx Cardiomegaly, Hx Coronary Artery Disease, Hx Deep Vein Thrombosis, Hx Hypercholesterolemia, Hx Myocardial Infarction, Hx Peripheral Vascular Disease, Other Cardiovascular Problems/Disorders - BLOOD CLOTS TO LEGS X2 Denies: Hx Aneurysm, Hx Angina, Hx Angioplasty, Hx Auto Implanted Cardiovert Defib, Hx Cardiac Arrest, Hx Congenital Heart Disease, Hx Congestive Heart Failure, Hx Embolism, Hx Hypotension, Hx Hypertension, Hx Pacemaker/ICD, Hx Rheumatic Fever, Hx Syncope, Hx Valvular Heart Disease Respiratory History: Reports: Hx Asthma, Hx Chronic Bronchitis, Hx Pneumonia, Hx Sleep Apnea, Other Respiratory Problems/Disorders - FREQUENT PNEUMONIA Denies: Hx Pulmonary Embolism, Hx Seasonal Allergies GI History: Reports: Other GI Disorders - 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 Denies: Hx Cirrhosis, Hx Crohn's Disease, Hx Diverticulosis, Hx Gall Bladder Disease, Hx Gastroesophageal Reflux Disease, Hx Gastrointestinal Bleed, Hx Hiatal Hernia, Hx Irritable Bowel, Hx Jaundice, Hx Obstructive Bowel, Hx Ileostomy, Hx Pyloric Stenosis, Hx Ulcer History: Reports: Other Problems/Disorders - Continent urinary diversion at [facility] Denies: Hx Acute Renal Failure, Hx Benign Prostatic Hyperplasia, Hx Chronic Renal Failure, Hx Dialysis, Hx Kidney Infection, Hx Kidney Stones Musculoskeletal History: Reports: Hx Arthritis, Hx Back Problems, Hx Bursitis - KNEE, Other Musculoskeletal History - osteomyleitis Denies: Hx Gout, Hx Osteoporosis, Hx Scoliosis Sensory History: Reports: Hx Contacts or Glasses - reading Denies: Hx Hearing Aid Opthamlomology History: Reports: Hx Contacts or Glasses - reading Neurological History: Reports: 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 Denies: Hx Seizures, Hx Spinal Cord Injury, Hx Transient Ischemic Attacks ( TIA) Psychiatric History: Denies: Hx Panic Disorder - Cancer History Cancer Type, Location and Year: prostate cancer Hx Chemotherapy: No Hx Radiation Therapy: Yes - Proton Radiation Hx Palliative Cancer Treatment: No - Surgical History Surgery Procedure, Year, and Place: appendix, tonsils, prostatectomy, urinary incontinence diversion 2002, rt foot x9, left foot x5, hernia repair,cardiac stent 04/08/13 pt has stent card please make copy for mri scan Hx Anesthesia Reactions: No - Immunization History Date of Influenza Vaccine: 11/2016 Infectious Disease History: No Infectious Disease History: Denies: Hx Clostridium Difficile, Hx Hepatitis, Hx Human Immunodeficiency Virus (HIV), Hx of Known/Suspected MRSA, Hx Shingles, Hx Tuberculosis, Hx Known/ Suspected VRE, Hx Known/Suspected VRSA, History Other Infectious Disease, Traveled Outside the [place] in Last 30 Days - Family History Known Family History: Positive: Other - neg: anaesthesia reaction - Social History Alcohol Use: Occasionally Alcohol Amount: 1 drink per month Hx Substance Use: No Substance Use Type: Reports: None Hx Tobacco Use: No Smoking Status (MU): Never Smoked Tobacco Have You Smoked in the Last Year: No Review of Systems Negative: Chest Pain Negative: Nausea Positive: Decreased ROM Neurological: Other - dizzy Positive: Weakness - LE, Numbness - LE. Negative: Headache All Other Systems Reviewed And Are Negative: Yes Physical Exam - Summary Physical Exam Summary: Appearance: The patient is well-nourished in no acute distress and in no acute pain. Skin: The skin is warm and dry and skin color reflects adequate perfusion. HEENT: The head is normocephalic and atraumatic. The pupils are equal and reactive. The conjunctivae are clear and without drainage. Nares are patent and without drainage. Mouth reveals moist mucous membranes and the throat is without erythema and exudate. The external ears are intact. The ear canals are patent and without drainage. The tympanic membranes are intact. Neck: The neck is supple with full range of motion and non-tender. There are no carotid bruits. There is no neck vein distension. Respiratory: Chest is non-tender. Lungs are clear to auscultation and breath sounds are symmetrical and equal. Cardiovascular: Heart is regular rate and rhythm. There is no murmur or rub auscultated. There is no peripheral edema and pulses are symmetrical and equal. Abdomen: The abdomen is soft and non-tender. There are normal bowel sounds heard in all four quadrants and there is no organomegaly palpated. Musculoskeletal: There is no back tenderness noted. Extremities are non-tender with full range of motion. There is good capillary refill. There is no peripheral edema or calf tenderness elicited. Neurological: Patient is alert and oriented to person, place and time. The patient has symmetrical motor strength in all four extremities. Cranial nerves are grossly intact. Deep tendon reflexes are symmetrical and equal in all four extremities. Psychiatric: The patient has an appropriate affect and does not exhibit any anxiety or depression. NIH: 3 for facial droop and ataxia of upper and lower extremities. GCS: 15 Triage Information Reviewed: Yes Vital Signs On Initial Exam: Initial Vitals Temp Pulse Resp BP Pulse Ox 98.2 F 78 18 160/80 99 04/15/18 13:34 04/15/18 13:34 04/15/18 13:34 04/15/18 13:34 04/15/18 13:34 Vital Signs Reviewed: Yes Diagnostics - Vital Signs Vital Signs Temp Pulse Resp BP Pulse Ox 04/15/18 13:34 98.2 F 78 18 160/80 99 - Laboratory Result Diagrams: 04/15/18 14:49 01/01/19 14:49 Lab Statement: Any lab studies that have been ordered have been reviewed, and results considered in the medical decision making process. NIH Scale - NIH Scale Level of Consciousness: Alert/Keenly Responsive Ask Patient the Month and His/Her Age: Both Correct Ask Pt to Open/Close Eyes and Primary Counselor/Release Non-Paretic Hand: Both Correctly Best Gaze (Only Horizontal Eye Movement): Normal Visual Field Testing: No Visual Loss Facial Paresis-Pt to Smile & Close Eyes or Grimace Symmetry: Minor Paralysis Motor Function - Right Arm: No Drift-Holds 10 Seconds Motor Function - Left Arm: No Drift-Holds 10 Seconds Motor Function - Right Leg: No Drift-Holds 10 Seconds Motor Function - Left Leg: No Drift-Holds 10 Seconds Limb Ataxia-Must be out of Proportion to Weakness Present: Present in Two Limbs - left upper and lower extremities Sensory (Use Pinprick to Test Arms/Legs/Trunk/Face): Normal Best Language (Describe Picture, Name Items): No Aphasia Dysarthria (Read Several Words): Normal Extinction and Inattention: No Abnormality Total Score: 3 Course/Dx - Course Course Of Treatment: Mr. Carlton woke up at 9 AM this morning feeling normal and went back to sleep. When he awakened at 10 AM he had a great deal of difficulty walking. He is a bit equivocal as to whether this was a balance problem or leg problem but it was definitely not a spinning/dizzy problem. It has improved some but he doesn't feel right on presentation to the ED. He was able to walk in and also drive himself here. He was nontoxic in appearance on arrival and his vital signs were stable. A directed NIH stroke scale exam revealed some dysmetria in his left upper and lower extremities that was mild. He had a suggestion of a right facial droop which he was able to overcome with testing. Because of the length of time and the minor signs, I felt that he was not a thrombolytic candidate and therefore a code parker was not called. However it is possible that he has a retrievable clot and a CT was ordered with initial labs. The patient will be turned over to Dr. Mcdaniel pending workup. - Diagnoses Provider Diagnoses: CVA (cerebral vascular accident) - Critical Care Time Critical Care Time: 30-74 min Discharge - Sign-Out/Discharge Documenting (check all that apply): Sign-Out Patient Signing out patient TO: Krishna Callaway - Discharge Plan Condition: Stable Referrals: Prabha Washington MD [Primary Care Provider] - - Billing Disposition and Condition Condition: STABLE - Attestation Statements Document Initiated by Cara: Yes Documenting Scribe: Chase Bejarano Provider For Whom Cara is Documenting (Include Credential): Krishna Fofana MD Scribe Attestation: Chase Gipson, zuriibed for Krishna Fofana MD on 04/15/18 at 1701. Scribe Documentation Reviewed: Yes Provider Attestation: The documentation as recorded by the Chase rawls accurately reflects the service I personally performed and the decisions made by me, Krishna Fofana MD Status of Scribe Document: Viewed
--- NOTE | 2018-04-15 14:03 | ED ---
Progress - Progress Note Progress Note: The patient was signed out by Dr. Fofana to Dr. Callaway, awaiting CT and CTA results. - Results/Orders Results/Orders: Head CTA: 1. NO INTERNAL CAROTID ARTERY STENOSIS BY NASCET CRITERIA. 2. NO ANEURYSM, VASCULAR MALFORMATION, OCCLUSION, OR STENOSIS OF THE VISUALIZED INTRACRANIAL CIRCULATION ED physician has reviewed this report - EKG/XRAY/CT EKG: NSR - 70 bpm Comments: No significant St elevation, no STEMI Re-Evaluation - Re-Evaluation First Eval Re-Evaluation Time: 16:43 Change: Unchanged Comment: Patient has had no change in his symptomatology. The CTA done does not show any significant stenosis of the visualized arteries. Nonetheless, his symptoms and physical exam were concerning for Dr. Fofana as far as acute stroke , possibly posterior circulation. The patient will be admitted to the hospital. Dr. Fofana advised me that he has already consulted Dr. Weller by phone and at the patient is able to stay here at [facility]. Course/Dx - Course Course Of Treatment: This patient is a 72 year old M presenting to [facility] with a chief complaint of difficulty walking due to numbness in bilateral legs since this morning at 10am. The patient rates the pain 5/10 in severity. Patient reports a fuzzy dizziness, inability to walk, and weakness in LEs. Patient denies GORDON, nausea, or CP. An EKG reveals NSR 70 bpm, no significant ST elevation, no STEMI. Head CTA reveals, per radiologist, 1. NO INTERNAL CAROTID ARTERY STENOSIS BY NASCET CRITERIA. 2. NO ANEURYSM, VASCULAR MALFORMATION, OCCLUSION, OR STENOSIS OF THE VISUALIZED INTRACRANIAL CIRCULATION. ED physician has reviewed this radiology report. Test results with no significant abnormalities. In the ED course the patient was given Iodixanol. We discussed patient care with Dr. Hopper and they recommended admission. The patient will be signed out from Dr. Fofana to Dr. Callaway, awaiting CT and CTA results. - Diagnoses Provider Diagnoses: CVA (cerebral vascular accident) - Provider Notifications Discussed Care Of Patient With: Iris Hopper Time Discussed With Above Provider: 16:45 Instructed by Provider To: Admit As Inpatient Discharge - Sign-Out/Discharge Documenting (check all that apply): Patient Departure - admission, Receiving Sign-Out Receiving patient FROM: Krishna Fofana - Discharge Plan Condition: Stable Disposition: ADMITTED TO [facility] - Billing Disposition and Condition Condition: STABLE Disposition: Admitted to [facility] - Attestation Statements Document Initiated by Cara: Yes Documenting Scribe: Chase Bejarano Provider For Whom Cara is Documenting (Include Credential): Krishna Callaway MD Scribe Attestation: IChase, scribed for Krishna Callaway MD on 04/16/18 at 1822. Scribe Documentation Reviewed: Yes Provider Attestation: The documentation as recorded by the bustereChase accurately reflects the service I personally performed and the decisions made by me, Krishna Callaway MD Status of Scribe Document: Viewed
--- OUTSIDE RECORDS SUMMARY | 2018-04-15 14:11 | XMS REPORT | Continuity of Care Document ---
:1945 External Reference #:[id number] Author Name Christian Reno MD Address [facility] [place] [address] Care Team Providers Name Role Phone Prabha Washington MD Care Team Information Facing End Trimmer Unavailable Payers Type Date Identification Numbers Payment Provider Subscriber Policy Number: [id number] [facility] Employees Dario Mancini PayID: [id number] [address] [place] [address] Advance Directives Description No Information Available Problems Date Description Provider Status Onset: 04/29/2013 Type 2 diabetes mellitus LUCIA Pritchett Active Note: pre 2002 Onset: 04/29/2013 Chronic ischemic heart disease LUCIA Pritchett Active Note: first sign of CAD was NE on 2012 - 2 stents at [facility] Dr Jones ; no nitros since then as of 12/31/13 Onset: 04/29/2013 Asthma without status asthmaticus LUCIA Pritchett Active Note: prednisone step down once per [facility]; monteleukast (Singulair) 2011 helps quite a bit- 12/31/13 has not used inhalers in months Onset: 05/03/2001 Irritable bowel syndrome Maurizio Morales MD Active Note: had w/u in Apr 2001 Onset: 07/02/1983 Clikbgg-Rvlrt-Ojwdk disease Maurizio Morales MD Active Note: Charcot Lala Tooth disease Onset: 07/01/2000 Open fracture of lumbar vertebra Maurizio Morales MD Active without spinal cord injury Note: fell from a 20 ft ladder working on a tree; Onset: 12/31/2013 Chet hematuria Maurizio Morales MD Active Note: sees Dr Escobar and has not had cysto [phone] on account of anticoagulants warfarin then Plavix Onset: 02/05/2018 Generalized abdominal pain Christian Reno MD Active Onset: 02/05/2018 Diverticular disease of colon Christian Reno MD Active Onset: 05/09/2017 Hemorrhage of rectum and anus Christian Reno MD Active Family History Date Family Member(s) Problem(s) Comments Father Heart Attack Uncle Colon Cancer or could have been other source; Paternal uncle and aunt Social History Type Date Description Comments Sex Unknown 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 ETOH Use Occasionally consumes alcohol Tobacco Use Start: Unknown Patient has never smoked Smoking Status Reviewed: 02/05/18 Patient has never smoked Allergies, Adverse Reactions, Alerts Date Description Reaction Status Severity Comments 04/29/2013 NKDA Active 05/09/2017 Latex Active 05/09/2017 Adhesives Active Medications Medication Date Status Form Strength Qnty SIG Indications Ordering Provider Nitrostat / Active Tablets 0.4mg Stefek, 0000 Sub MD Wojciech Metoprolol / Active Tablets ER 25mg Daily Stefek, Succinate ER 0000 24HR MD Wojciech Montelukast / Active Tablets 10mg Law, Sodium 0000 MD Chuy Lisinopril / Active Tablets 2.5mg Stefek, 0000 MD Wojciech Glipizide / Active Tablets 2.5mg Law, 0000 MD Chuy Proair HFA / Active Aerosol 108(90Base Law, 0000 ) mcg/Act MD Chuy Metformin HCL / Active Tablets 1000mg bid Law, 0000 MD Chuy Aspirin / Active Tablets DR 81mg daily Unknown 0000 Pravastatin / Active Tablets 40mg 1 by mouth Unknown Sodium 0000 every day Gabapentin / Active Capsules 300mg [place], 0000 CASSIE Pond Symbicort / Active Aerosol 160-4.5mcg 2 puff Unknown 0000 /Act twice a day Fluticasone / Active Unknown Propionate 0000 Melatonin / Active Capsules 5mg 1 by mouth Unknown 0000 every night at bedtime as needed insomnia Acetaminophen / Active Tablets 500mg at bedtime Unknown 0000 Probiotic / Active Unknown 0000 Multi-Day / Active Tablets 1 by mouth Unknown Vitamins 0000 every day Fish Oil / Active Unknown 0000 Vitamin B12 / Active Unknown 0000 Colyte With 05/09/ Hx Solution 240gm 4000ml by mouth K62.5 Christian D. Flavor Packs 2018 - Rec as Rowdy, 2017 Clopidogrel / Hx Tablets 75mg Robert 0000 Muna Jeffrey MD 2017 Warfarin Sodium / Hx Tablets 5mg Law Muna Vera MD 2013 Simvastatin / Hx Tablets 20mg Law Muna Vera MD 2017 Prandin / Hx Tablets 1mg tid Law Muna Vera MD 2013 Immunizations Description No Information Available Vital Signs Date Vital Result Comment 02/05/2018 8:46am Height 71 inches 5'11" Weight 216.00 lb BP Systolic 135 mmHg BP Diastolic 75 mmHg Heart Rate 62 /min BMI (Body Mass Index) 30.1 kg/m2 05/09/2017 3:41pm Height 71 inches 5'11" Weight 222.00 lb BP Systolic 132 mmHg BP Diastolic 82 mmHg Heart Rate 88 /min BMI (Body Mass Index) 31.0 kg/m2 12/31/2013 9:33am Height 72 inches 6'0" Weight 220.00 lb BP Systolic 134 mmHg BP Diastolic 88 mmHg Heart Rate 72 /min BMI (Body Mass Index) 29.8 kg/m2 07/01/2013 2:17pm Height 72 inches 6'0" Weight 207.00 lb BP Systolic 118 mmHg BP Diastolic 60 mmHg Heart Rate 78 /min BMI (Body Mass Index) 28.1 kg/m2 04/29/2013 8:02am Height 72 inches 6'0" Weight 213.00 lb BP Systolic 130 mmHg BP Diastolic 70 mmHg Heart Rate 72 /min BMI (Body Mass Index) 28.9 kg/m2 Results Test Date Facility Test Result H/L Range Note Laboratory test 06/28/2017 [facility] Surgical SEE RESULT 1, 2 finding Interface Order BELOW Laboratory test 06/28/2017 [facility] Point of Care 124 mg/dL High 70-100 3 finding Glucose CBC W/Auto 03/11/2017 [facility] White Blood <pending> Differential(!) Count Ser Auto CNT RBC Red Blood Count <pending> Hemoglobin Blood <pending> Hematocrit <pending> MCV (Corpuscular Volume) <pending> MCH (Corpuscular Hemoglobin) <pending> MCHC (Corpuscular Hemog Conc) <pending> RDW <pending> Platelet Count Blood Auto CNT <pending> MPV <pending> Lymph% <pending> [place]% <pending> Neutrophil % <pending> Absolute Lymphocytes <pending> Absolute Monocytes <pending> Absolute Neutrophils <pending> CMP(!) 03/11/2017 [facility] Sodium(!) <pending> Potassium(!) <pending> Chloride Serum/Plasma(!) <pending> Carbon Dioxide Ser/Plasm(!) <pending> BUN - Urea Nitrogen(!) <pending> Calcium Ser/Plasma Mass/Vol(!) <pending> Creatinine Serum Mass/Vol(!) <pending> Glucose Serum(!) <pending> Uric Acid Ser/Plas Mass/Vol(!) <pending> BUN/Creatinine Ratio(!) <pending> Albumin Serum/Plasma(!) <pending> Alkaline Phosphatase(!) <pending> Bilirubin Total Mass/Vol(!) <pending> Ast - Sgot <pending> Alt - SGPT <pending> Protein Total <pending> Xray 10/09/2012 [facility] Radiology MRI Lower Extremity Right W/Wo <pending> Xray 01/09/2011 [facility] Radiology Lower Ext Veins Right <pending> Xray 06/27/2010 [facility] Radiology Bone Imaging 3 Phase <pending> 1 [id number] 2 SEE RESULT BELOW Name: DARIO MANCINI : [address]: Christian Reno MD Acct: [id number] Unit: [id number] AGE: 71 Location: [facility] Re06/28/17 SEX: M Status: DEP REF SPEC: [id number] JAROD: 06/28/17-[address] [facility] [address]: Christian Reno MD REQ: [id number] RECD: 06/28/174 STATUS: MARVA DOWELL DR: Prabha Washington MD PC _ ORDERED: LEVEL 4/2 COMMENTS: [id number] FINAL DIAGNOSIS 1. Colon, 40 cm, biopsies: -- Large intestinal mucosa with mild architectural disorder and lamina propria muciphages and pigmented macrophages compatible with resolving prior insult. -- Minimal focal superficial active colitis noted. -- No cryptitis, crypt abscesses or granulomas identified. -- No dysplasia identified. 2. Colon, polyp at 20 cm, biopsy: -- Hyperplastic polyp. CLINICAL HISTORY Screening, average risk. Last colonoscopy ? approximately 14 years ago; rectal bleeding POST-OPERATIVE DIAGNOSIS Colonoscopy to terminal ileum ? anastomosis ? twisty, polyp at 20 cm biopsied ; colitis at 40 cm biopsied. Conclusions/Plan: Follow-up biopsy; no repeat GROSS DESCRIPTION 1. The specimen is received in formalin labeled, Biopsy Colitis at 40 cm, and consists of two shaw-pink irregular soft tissue fragments averaging 0.3 x 0.2 x 0.1 cm which are submitted entirely in one cassette. 2. The specimen is received in formalin labeled, Biopsy Colon Polyp at 20 cm, and consists of a 0.3 x 0.2 x 0.2 cm shaw-pink irregular soft tissue fragment which is submitted entirely in one cassette. Signed (signature on file) Jorge Luis Davis MD [id number] END OF REPORT DEPARTMENT OF PATHOLOGY, [address] [place] [address] Jorge Luis Davis M.D. Director YANDY # [id number] 3 Engine Cleaner: [id number] Procedures Date Code Description Status 06/28/2017 82112 Moderate Sedation Services; Same Phys Each Additional 15 Completed Mins 06/28/2017 93024 Moderate Sedation Services; Same Phys Each Additional 15 Completed Mins 06/28/2017 63789 Moderate Sedation Services; Same Phys Intl 15 Mins; PT >=5 Completed Years 06/28/2017 45218 Colonscopy+Biopsy Completed 05/22/2013 54826 Flexible Sigmoidoscopy; DX; W/Wo Collection Of Spec Completed 03/28/2004 29348 Colonoscopy Completed 06/22/2003 99825 Colonscopy+Biopsy Completed Encounters Type Date Location Provider Dx Diagnosis Office Visit 05/09/2017 [facility] Christian Nixon K62.5 Hemorrhage of 3:30p [facility] Reno MD anus and rectum Office Visit 12/31/2013 [facility]enter[facility] Maurizio Lock 569.3 Hemorrhage Rectum 9:30a [facility] Morales MD & Anus 564.1 Irritable Bowel Syndrome 250.00 Diabetes Mellitus W/O Compl Type II Or Unspec Controlled 414.9 Ischemic Heart Disease Chronic Unspec 562.10 Diverticulosis Colon W/O Hemorrhage 599.70 Hematuria, Unspecified Office Visit 07/01/2013 [facility] Maurizio Lock 250.00 Diabetes 2:15p [facility] Morales MD Mellitus W/O Compl Type II Or Unspec Controlled 787.91 Diarrhea 564.1 Irritable Bowel Syndrome Office Visit 04/29/2013 [facility] Meally 569.3 Hemorrhage 8:00a [facility] [place], Rectum & Anus 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
[2018-04-15 15:01] LABS: ABS Basophils 0.1 10^3/ul (0-0.2); ABS Eosinophils 0.1 10^3/ul (0-0.6); ABS Lymphocytes 0.9 10^3/ul (1.0-4.8); ABS Monocytes 1.3 10^3/ul (0-0.8); ABS Neutrophils 9.2 10^3/ul (1.5-7.7); ABS Nucleated RBC 0 10^3/ul; Eosinophil % 0.8 %; Hematocrit 37 % (42-52); Hemoglobin 12.2 g/dl (14.0-18.0); Lymphocyte % 7.9 %; Mean Corpuscular HGB Conc 33 g/dl (31-36); Mean Corpuscular Hemoglobin 31 pg (27-31); Mean Corpuscular Volume 94 fL (80-94); Mean Platelet Volume 7.3 fL (7.4-10.4); Nucleated Red Blood Cells % 0; Platelet Count 234 10^3/ul (150-450); Red Blood Count 3.96 10^6/ul (4.00-5.40); Red Cell Distribution Width 13 % (10.5-15); White Blood Count 11.6 10^3/ul (3.5-10.8)
[2018-04-15 15:07] LABS: INR 0.98 (0.77-1.02)
[2018-04-15 15:18] LABS: Albumin 4.4 g/dL (3.2-5.2); Albumin/Globulin Ratio 1.6 (1-3); BUN/Creatinine Ratio 20.4 (8-20); Calcium 9.4 mg/dL (8.6-10.3); EGFR African American 51.1 (>60); EGFR Non-African American 42.2 (>60); Globulin 2.7 g/dL (2-4); Potassium 4.5 mmol/L (3.5-5.0); Total Bilirubin 0.5 mg/dL (0.2-1.0); Total Protein 7.1 g/dL (6.4-8.9)
[2018-04-15 15:20] LABS: Troponin I 0.01 ng/mL (<0.04)
[2018-04-15] MEDS ORDERED: Iodixanol* (CONTRAST) 320 MG/ML 100 ML SDV IV ONE (15:37)
[2018-04-15] MEDS ORDERED: Nitroglycerin TAB 0.4 MG* 0.4 MG TAB SL PRN (17:43)
[2018-04-15] MEDS ORDERED: Clopidogrel TAB* 75 MG PO ONE (17:56)
[2018-04-15] MEDS ORDERED: Dextrose 50% Syringe 50 ML* 25 GM/50 ML SYRINGE IV PUSH PRN (17:57)
[2018-04-15] MEDS ORDERED: Clopidogrel TAB* 75 MG PO SCH (18:00)
[2018-04-15] MEDS ORDERED: Lactated Ringers 1000 ML Bag* 1,000 ML IV ONE (18:14)
[2018-04-15 18:28] LABS: Urine Appearance Turbid; Urine Bacteria Absent (Absent); Urine Bilirubin Negative (Negative); Urine Blood 1+ (Negative); Urine Color Yellow; Urine Glucose Negative (Negative); Urine Ketones Negative (Negative); Urine Nitrite Negative (Negative); Urine Protein Negative (Negative); Urine Red Blood Cell 3+(>10/hpf) (Absent); Urine Specific Gravity 1.016 (1.010-1.030); Urine Urobilinogen Negative (Negative); Urine White Blood Cell 3+(>20/hpf) (Absent)
[2018-04-15] MEDS: Mometasone/Formoter 200/5 MDI INH SCH (20:35)
[2018-04-15] MEDS ORDERED: glipiZIDE TAB* 5 MG PO SCH (21:00)
--- NOTE | 2018-04-15 21:00 | HP ---
CC: Dr. Washington; Dr. Chen; Dr. Weller * HISTORY AND PHYSICAL: DATE OF ADMISSION: 04/15/18 TIME OF EVALUATION: 5:20 p.m. PRIMARY CARE PROVIDER: Dr. Washington. SKELP PROCESSOR: Dr. Chen. CONSULTING NEUROLOGIST: Dr. Weller. CHIEF COMPLAINT: Difficulty walking. HISTORY OF PRESENT ILLNESS: Mr. Carlton is a 72-year-old male with a past medical history of type 2 diabetes; coronary artery disease, status post stents ; hyperlipidemia; prostate CA, requiring urinary continent diversion with urostomy; diabetic neuropathy; chronic left hip pain, who presented to the emergency room with complaints of gait difficulty. The patient states that he went to bed last night in his usual state of health, woke up around 9:15, went back to sleep, and when he woke up at 10, he felt that he had no control over his legs. He fell towards a wall, but later on he was able to walk downstairs to the kitchen and had breakfast. He states that he was still not feeling right, and around noon, his convinced him to call a nurse, and he was advised to come to the emergency room. The patient states that he has diabetic neuropathy and that his legs are numb from the leigh down, and this causes some issues with his walking, but what he experienced this morning he states was different. He states that he could not control his legs. He denies any localized weakness or any other areas of numbness or tingling besides his legs as usual. The patient also states that his mind is "foggy" and that he is having difficulty findings words. He states that he experimented with drugs when he was in college, and the sensation he has is similar. During our interview, he was trying to tell me that he was taking a probiotic, and he repeated antibiotic at least 3 times before finding the word he wanted to say. He denies any new visual changes, change in articulation and speech or other complaints. He denies headache, chest pain, palpitations or shortness of breath. He was feeling in his usual state of health last night. PAST MEDICAL HISTORY: 1. Coronary artery disease, status post stent in 2012. 2. 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 3. CKD stage III. 4. Prostate cancer, status post resection with significant urinary incontinence after. The patient underwent urinary continent diversion in 2002 and he now has a urostomy. 5. 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 6. Status post umbilical hernia repair. 7. Status post appendectomy and tonsillectomy. 8. The patient has a history of recurrent lower extremity DVTs. He states that the first one no one could find a cause, but the second one was after a fall where he had to be on bedrest and he has been off anticoagulation for many years. MEDICATION LIST: 1. Aspirin 81 mg p.o. daily. 2. Symbicort 2 puffs inhaled b.i.d. 3. Famotidine 10 mg p.o. b.i.d. 4. Fluticasone nasal spray 50 mcg 2 sprays both nares daily. 5. Gabapentin 300 mg p.o. in the morning, 600 mg p.o. at bedtime. 6. Glipizide 2.5 mg p.o. at bedtime. 7. Lisinopril 5 p.o. daily. 8. Melatonin 5 mg p.o. at bedtime. 9. Metformin 1000 mg p.o. b.i.d. 10. Metoprolol succinate 25 mg p.o. daily. 11. Montelukast 10 mg p.o. daily. 12. Multivitamin 1 tablet p.o. daily. 13. Nitroglycerin 0.4 mg sublingual q.5 minutes p.r.n. chest pain. 14. Fish oil 1 tablet p.o. at bedtime. 15. Pravastatin 40 mg p.o. daily. 16. Probiotic 1 tablet p.o. daily. ALLERGIES: To ADHESIVE TAPE and LATEX. FAMILY HISTORY: Reviewed and noncontributory. SOCIAL HISTORY: The patient denies a history of tobacco use. He occasionally drinks alcohol usually once a month. He states that he experimented with drugs while in college, but has not used anything for more than 40 years. REVIEW OF SYSTEMS: A 14-point review of systems was performed and all the pertinent negative and positive findings are in the HPI. PHYSICAL EXAMINATION GENERAL: The patient is a pleasant gentleman, lying in the ED stretcher, in no acute distress. VITAL SIGNS: Temperature 98.2, heart rate is 74, respiratory rate is 19, oxygen saturation is 95% on room air, blood pressure was 131/72. HEENT: Pupils are equal. There is no nystagmus. Extraocular movements are intact. Moist mucous membranes. Face is symmetric. NECK: There is no carotid bruit. CHEST: Breath sounds present bilaterally with no added sounds. CVS: Normal S1, S2. Regular rate and rhythm. ABDOMEN: Soft with urostomy on the right lower quadrant. NEUROLOGIC: He is alert, awake, and oriented x3. Speech is clear. Power is 5/ 4 on both upper extremities and right lower extremity. Left lower extremity power is 4/5. Sensation is absent from the shins down to his feet. Heel-to- leigh and finger- to-nose are normal. DIAGNOSTIC STUDIES/LAB DATA: The patient had a CBC that showed WBC of 11.6, hemoglobin of 12.2, hematocrit of 37, platelets of 234 with 79% neutrophils. INR is 0.98. Chemistry showed a sodium of 139, potassium of 4.5, chloride of 108, bicarb of 25, BUN of 33, creatinine of 1.6, glucose of 109, lactic acid of 1.1, calcium of 9.4. LFTs are normal. Troponin is 0.01. CTA of the head and neck showed no internal carotid artery stenosis. No aneurysm, vascular malformation, occlusion, or stenosis of the visualized intracranial circulation. Both vertebral arteries are patent along their course. EKG done on 04/15/18 at 2:30 p.m. showed sinus rhythm at 70 beats per minute with Q waves in II, III, and aVF. No significant change when compared to his prior EKG from November 2016. ASSESSMENT AND PLAN: Mr. Carlton is a 72-year-old male with a past medical history of coronary artery disease, status post stents; type 2 diabetes with diabetic neuropathy and nephropathy; hyperlipidemia; prostate carcinoma, status post urostomy, who presented to the emergency room with complaints of gait abnormality. 1. Gait abnormality, rule out cerebrovascular accident. The patient does have risk factors cerebrovascular accident, and on my physical examination, he has some weakness of the left leg, but that seems to be related to his chronic left hip pain. The emergency room provider described that the patient had a NIH drug scale of 3 for facial droop and ataxia of upper and lower extremities, but I could not reproduce those symptoms on my physical examination. Gait was not attempted in the emergency room. He is alert and oriented x3. Speech is fluent. The concern is that this may represent posterior circulation cerebrovascular accident. Although the emergency room provider described dizziness, the patient states that his mind feels between "foggy" and he has difficulty findings words. I discussed the case with Neurology and the plan is for him to be admitted as observation to telemetry floor. We are going to add Plavix to his aspirin. We will continue statin, and I will check a lipid profile and hemoglobin A1c. His labs are not significantly abnormal. His creatinine is a little higher than his baseline, but I do not think this would justify the changes that he is presenting now. I am going to check ammonia, B12 and TSH. The patient will be placed on fall precautions. He will have a neurological checks. We will do an echocardiogram and an MRI of the brain without contrast tomorrow. Another possibility is that the patient could have urinary tract infection, and we are going to send urinalysis. If the workup is negative, then we may pursue an EEG. Dr. Weller will see the patient in consultation tomorrow. 2. Type 2 diabetes. I am going to hold his glipizide for now and continue just lispro sliding scale. 3. Coronary artery disease. Appears to be stable. I am going to continue his metoprolol with holding parameters his aspirin and statin. 4. Chronic kidney disease, stage III. His creatinine is 1.6 today from 1.3 in February 2017. He received gentle IV hydration since he had a contrasted study , and we will monitor his renal function. I am holding his lisinopril for now due to his renal function, and I am trying to keep his blood pressure a little on the higher side. 5. DVT prophylaxis. The patient has a score of 6 on the DVT Prophylaxis Risk Assessment Guide, and he will be started on subcutaneous heparin and SCDs. 6. Code status is full. TIME SPENT: Approximately 65 minutes was spent with the patient interview, medical records review, physical examination to complete the admission, more than half this time was spent [id number] with the patient and coordination of care. [id number]/[facility] #: [id number] SAMANTHA
[2018-04-15 21:16] LABS: TSH (Thyroid Stimulating Horm) 0.79 mcIU/mL (0.34-5.60)
[2018-04-15] MEDS: Melatonin 3 MG TAB PO SCH (22:24)
[2018-04-15] MEDS: Insulin LISPRO* 1 UNITS UNIT SUBCUT SCH (22:25)
[2018-04-15] MEDS: Gabapentin CAP(*) 300 MG PO SCH (22:25)
[2018-04-15] MEDS: Heparin VIAL(*) 5000 UNITS/ML VIAL (FIVE THOUSAND) SUBCUT SCH (22:25)
--- NOTE | 2018-04-16 01:17 | PN ---
Progress Note - Progress Note Date of Service: 04/16/18 Note: Paged for redness and warmth noted on LLE. Patient with low grade temp and white count. States he has had cellulitis in the past. Denies any pain but states he has neuropathy. LLE with erythema and warmth. Will start Ceftriaxone. Will order doppler (Pt. states he has had a DVT in the past with his cellulitis)
[2018-04-16] MEDS: cefTRIAXone(*) 1 GM in NS 0.9% 50 ML* 50 ML IVPB SCH (02:17)
[2018-04-16 02:42] LABS: Urine Appearance Cloudy; Urine Bacteria Absent (Absent); Urine Bilirubin Negative (Negative); Urine Blood 1+ (Negative); Urine Color Yellow; Urine Glucose Negative (Negative); Urine Ketones Negative (Negative); Urine Nitrite Negative (Negative); Urine Protein Negative (Negative); Urine Red Blood Cell 2+(6-10/hpf) (Absent); Urine Specific Gravity 1.017 (1.010-1.030); Urine Urobilinogen Negative (Negative); Urine White Blood Cell 3+(>20/hpf) (Absent)
[2018-04-16] MEDS: Heparin VIAL(*) 5000 UNITS/ML VIAL (FIVE THOUSAND) SUBCUT SCH ×3 (05:50→21:50)
[2018-04-16 06:11] LABS: Hematocrit 34 % (42-52); Hemoglobin 11.5 g/dl (14.0-18.0); Mean Corpuscular HGB Conc 34 g/dl (31-36); Mean Corpuscular Hemoglobin 31 pg (27-31); Mean Corpuscular Volume 93 fL (80-94); Mean Platelet Volume 7.4 fL (7.4-10.4); Platelet Count 208 10^3/ul (150-450); Red Blood Count 3.68 10^6/ul (4.00-5.40); Red Cell Distribution Width 13 % (10.5-15); White Blood Count 12.2 10^3/ul (3.5-10.8)
[2018-04-16 07:14] LABS: ABS Basophils 0.1 10^3/ul (0-0.2); ABS Eosinophils 0.1 10^3/ul (0-0.6); ABS Lymphocytes 1.5 10^3/ul (1.0-4.8); ABS Monocytes 1.6 10^3/ul (0-0.8); ABS Neutrophils 8.8 10^3/ul (1.5-7.7); ABS Nucleated RBC 0 10^3/ul; Lymphocyte % 12.4 %; Nucleated Red Blood Cells % 0
[2018-04-16 07:48] LABS: Calcium 9.1 mg/dL (8.6-10.3); Potassium 4.6 mmol/L (3.5-5.0)
[2018-04-16] MEDS ORDERED: Cyanocobalamin INJ * 1,000 MCG/ML VIAL 1 ML VIAL IM ONE (07:51)
[2018-04-16 07:54] LABS: BUN/Creatinine Ratio 17.9 (8-20); EGFR African American 45.5 (>60); EGFR Non-African American 37.6 (>60); HDL Cholesterol 39.7 mg/dL
[2018-04-16] MEDS: Mometasone/Formoter 200/5 MDI INH SCH ×2 (08:27→19:56)
[2018-04-16] MEDS: Gabapentin CAP(*) 300 MG PO SCH ×2 (10:00→21:51)
[2018-04-16] MEDS: Fluticasone NASAL SPRAY 50MCG* 16 gm SPRAY BTL BOTH NARES SCH (10:00)
[2018-04-16] MEDS: Metoprolol Succinate XL TAB* 25 MG PO SCH (10:00)
[2018-04-16] MEDS: Clopidogrel TAB* 75 MG PO SCH (10:01)
[2018-04-16] MEDS: Famotidine TAB* 20 MG PO SCH (10:01)
[2018-04-16] MEDS: Aspirin EC TAB* 81 MG TAB.EC PO SCH (10:01)
[2018-04-16] MEDS: Montelukast Sodium TAB* 10 MG PO SCH (10:01)
[2018-04-16] MEDS: Insulin LISPRO* 1 UNITS UNIT SUBCUT SCH ×4 (10:02→22:05)
[2018-04-16] MEDS ORDERED: Lactated Ringers 1000 ML Bag* 1,000 ML IV SCH (13:00)
--- NOTE | 2018-04-16 14:05 | ECHO ---
Patient: DARIO MANCINI [facility] Rec#: [id number] : 1945 Date: 04/16/2018 Age: 72y Height: 180.34 cm / 71.0 in Weight: 99.79 kg / 219.9 lbs Sex: M BSA: 2.2 Room#: [facility] Admit Date#: 04/15/2018 Type: Outpatient Referring: Nara Claros MD Reading: Lady Garces MD Automotive Worker: Yadira Jimenez RDCS CC: Prabha Washington MD Transthoracic Echocardiogram Indication: CVA BP: 122/60 HR: 80 Rhythm: NSR Findings History: DM II, CAD, Stents, HLD, prostate cancer, DVTs. Technical Comments: The study quality is fair. Completed at 0830. Left Ventricle: The left ventricular chamber size is normal. Mild concentric left ventricular hypertrophy is observed. Left ventricular systolic function is at the lower limits of normal. Base of the inferior wall relatively hypokinetic in 2 chamber view. The estimated ejection fraction is 50-55%. Abnormal left ventricular diastolic function is observed. The left ventricular diastolic filling pattern is consistent with pseudonormalization. Left Atrium: The left atrium is mildly dilated. Right Ventricle: Moderator Band present. The right ventricular cavity size is normal. The right ventricle wall thickness is mildly increased. The right ventricular global systolic function is normal. Right Atrium: The right atrium is mildly dilated. Interatrial septum appears intact without evidence of shunting. The bubble study is negative. A patent foramen ovale is not demonstrated with color Doppler and agitated contrast. Aortic Valve: The aortic valve is trileaflet. The aortic valve leaflets are mildly thickened. There is a trace of aortic regurgitation. There is no evidence of aortic stenosis. Mitral Valve: The mitral valve leaflets are mildly thickened. There is a trace of mitral regurgitation. There is no evidence of mitral stenosis. Tricuspid Valve: The tricuspid valve leaflets are normal. There is trace tricuspid regurgitation. Unable to estimate the right ventricular systolic pressure. There is no tricuspid stenosis. Pulmonic Valve: The pulmonic valve appears normal. There is no evidence of pulmonic regurgitation. There is no pulmonic stenosis. Pericardium: There is no significant pericardial effusion. Aorta: There is no dilatation of the ascending aorta. There is no dilatation of the aortic arch. There is mild dilatation of the aortic root. Pulmonary Artery: The main pulmonary artery appears normal. Venous: The inferior vena cava is dilated. There is a greater than 50% respiratory change in the inferior vena cava dimension. Contrast: Normal saline was used as contrast for the bubble study. Images 43 and 44. Intravenous contrast was used to help determine presence of intracardiac shunting. Conclusions Mild concentric left ventricular hypertrophy is observed. Left ventricular systolic function is at the lower limits of normal, base of the inferior wall relatively hypokinetic. The estimated ejection fraction is 50-55%. The left ventricular diastolic filling pattern is consistent with pseudonormalization. The right ventricle has mild RVH and systolic function is normal. Interatrial septum appears intact without evidence of shunting. There is a trace of aortic regurgitation with mild sclerosis. There is a trace of mitral regurgitation. There is trace tricuspid regurgitation. Compared with prior echo of 04/09/13, prior EF was 45-50%, inferior wall motion abnormality seen previously. Measurements Name Value Normal Range RVIDd (AP) 2D 3.3 cm (0.9 - 2.6) RVDdMajor (2D) 4.3 cm (2.2 - 4.4) RVAW (2D) 0.8 cm (0.2 - 0.5) RAd ISD 4CH 5.6 cm (3.4 - 4.9) RA (A4C)W 3.5 cm (2.9 - 4.6) IVSd (2D) 1.2 cm (0.6 - 1) LVPWd (2D) 1.2 cm (0.6 - 1) LVIDd (2D) 5.2 cm (3.6 - 5.4) LVIDs (2D) 3.4 cm - LV FS (2D) 34 % (25 - 45) Aortic Annulus 2.4 cm (1.4 - 2.6) Ao root diameter (2D) 4 cm (2.1 - 3.5) Ascending Ao 3.4 cm (2.1 - 3.4) Aortic arch 2.9 cm (1.8 - 3.4) LA dimension (AP) 2D 4.4 cm (2.3 - 3.8) LAd ISD 4CH 6.3 cm (2.9 - 5.3) LA ISD 4CH W 4.7 cm (2.5 - 4.5) Name Value Normal Range LA ESV SP 4CH (A/L) 81 ml - LA ESV SP 2CH (A/L) 71 ml - LA ESV BP (A/L) 80 ml - LA ESV BP (A/L) index 32 ml/m2 - LA ESV SP 4CH (MOD) 75 ml - LA ESV SP 2CH (MOD) 66 ml - Name Value Normal Range MV E-wave Vmax 0.87 m/sec - MV deceleration time 182.6 msec - MV A-wave Vmax 0.76 m/sec - MV E:A ratio 1.1 ratio - LV septal e' Vmax 0.06 m/sec - LV lateral e' Vmax 0.14 m/sec - LV E:e' septal ratio 14.5 ratio - LV E:e' lateral ratio 6.2 ratio - Name Value Normal Range AV Vmax 1 m/sec - AV VTI 21.1 cm - AV peak gradient 5 mmHg - AV mean gradient 3 mmHg - LVOT Vmax 0.9 m/sec - LVOT VTI 19.13 cm - LVOT peak gradient 3.17 mmHg - LVOT mean gradient 1.65 mmHg - МАРИЯ Vmax 1.1 m/sec - Name Value Normal Range IVC diameter 2.5 cm - Name Value Normal Range PV Vmax 1.15 m/sec - PV peak gradient 5.32 mmHg -
--- NOTE | 2018-04-16 15:36 | PN ---
Subjective Date of Service: 04/16/18 Interval History: HOSPITALIST PROGRESS NOTE Patient seen and examined at bedside. Care reviewed and d/w Cee Medrano RN. He feels better today. Was able to ambulate and felt steadier. "Mental fog" has resolved. Overnight he developed low grade fever and significant erythema around his left ankle, not present on admission. Had his left foot callus shaved last week by Podiatry. Family History: Unchanged from Admission Social History: Unchanged from Admission Past Medical History: Unchanged from Admission Objective Active Medications: Aspirin (Aspirin Ec Tab*) 81 mg PO DAILY [facility] Last Admin: 04/16/18 10:01 Dose: 81 mg Atorvastatin Calcium (Lipitor*) 40 mg PO 1700 [facility] Clopidogrel Bisulfate (Plavix Tab*) 75 mg PO DAILY [facility] Last Admin: 04/16/18 10:01 Dose: 75 mg Dextrose (D50w Syringe 50 Ml*) 12.5 gm IV PUSH .FOR FS < 60 - SS PRN PRN Reason: FS < 60 Famotidine (Pepcid Tab*) 20 mg PO DAILY [facility] Last Admin: 04/16/18 10:01 Dose: 20 mg Fluticasone Propionate (Flonase Nasal [place] 50mcg*) 2 spray BOTH NARES DAILY [facility] Last Admin: 04/16/18 10:00 Dose: 2 spray Gabapentin (Neurontin Cap(*)) 600 mg PO BEDTIME [facility] Last Admin: 04/15/18 22:25 Dose: 600 mg Gabapentin (Neurontin Cap(*)) 300 mg PO QAM [facility] Last Admin: 04/16/18 10:00 Dose: 300 mg Heparin Sodium (Porcine) (Heparin Vial(*)) 5,000 units SUBCUT Q8HR [facility] Last Admin: 04/16/18 14:12 Dose: 5,000 units Ceftriaxone Sodium 1 gm/ (Sodium Chloride) 50 mls @ 200 mls/hr IVPB Q24H [facility] Last Admin: 04/16/18 02:17 Dose: 200 mls/hr Lactated Ringer's (Lactated Ringers 1000 Ml Bag*) 1,000 mls @ 100 mls/hr IV PER RATE [facility] Last Admin: 04/16/18 14:12 Dose: 100 mls/hr Insulin Human Lispro (Humalog*) 0 units SUBCUT ACHS [facility]; Protocol Last Admin: 04/16/18 14:11 Dose: 2 unit Melatonin (Melatonin) 6 mg PO BEDTIME [facility] Last Admin: 04/15/18 22:24 Dose: 6 mg Metoprolol Succinate (Toprol Xl Tab*) 25 mg PO DAILY [facility] Last Admin: 04/16/18 10:00 Dose: 25 mg Mometasone Furoate/Formoterol Fumar (Dulera 200/5 Mdi*) 2 puff INH BID [facility]; Protocol Last Admin: 04/16/18 08:27 Dose: 2 puff Montelukast Sodium (Singulair Tab*) 10 mg PO DAILY [facility] Last Admin: 04/16/18 10:01 Dose: 10 mg Nitroglycerin (Nitroglycerin Tab 0.4 Mg*) 0.4 mg SL Q5M PRN PRN Reason: chest pain Vital Signs - 8 hr 04/16/18 04/16/18 04/16/18 08:00 08:27 10:00 Temperature Pulse Rate 86 Respiratory 18 16 18 Rate Blood Pressure (mmHg) O2 Sat by Pulse 92 Oximetry 04/16/18 04/16/18 12:15 13:26 Temperature 100.4 F Pulse Rate 78 Respiratory 16 16 Rate Blood Pressure 121/57 (mmHg) O2 Sat by Pulse 95 Oximetry Oxygen Devices in Use Now: None Appearance: Pleasant elderly gentleman sitting up in bed in [facility]. Eyes: No Scleral Icterus Ears/Nose/Mouth/Throat: Mucous Membranes Moist Neck: Trachea Midline Respiratory: Symmetrical Chest Expansion and Respiratory Effort, Clear to Auscultation Cardiovascular: NL Sounds; No Murmurs; No JVD, RRR Extremities: - - Mild edema and significant erythema/warmth around left ankle Neurological: Alert and Oriented x 3, - - Strength 4/5 LLE and 5/5 all other limbs Result Diagrams: 04/16/18 05:44 04/16/18 05:44 Microbiology and Other Data: Microbiology 04/15/18 18:12 Urine Culture - Preliminary Urine Citrobacter Freundii Assess/Plan/Problems-Billing Assessment: Mr Carlton is a 72yo M with PMH of 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 - Patient Problems (1) Gait abnormality Comment: - It could be secondary to his infection, but he does have risk factors for CVA. - Awaiting Neurology consult, MRI brain, and echocardiogram. - Continue Aspirin, Plavix, statin. (2) Cellulitis Comment: - Suspect streptococcal - continue Ceftriaxone. (3) B12 deficiency Comment: - Replete. (4) CAD (coronary artery disease) Comment: - Stable. - Continue Aspirin, Metoprolol, statin. (5) CKD (chronic kidney disease) stage 3, GFR 30-59 ml/min Comment: - Continue to monitor renal function. (6) History of urostomy Comment: - Urine culture growing Citrobacter - unclear if infection or colonization - follow cultures, but Ceftriaxone should cover it. (7) Diabetes mellitus type 2 Comment: - A1c is 6.8 - continue Lispro SS. (8) DVT prophylaxis Comment: - Continue SQ heparin and avoid SCDs due to cellulitis. (9) Full code status Status and Disposition: Change to inpatient to continue cellulitis treatment.
--- NOTE | 2018-04-16 16:03 | CONS ---
CC: Dr. Washington * NEUROLOGY CONSULTATION: DATE OF CONSULT: 04/16/18 LOCATION: He is an inpatient. He is in room 441. REFERRING PROVIDER: Dr. Cole. CHIEF COMPLAINT: Weakness, change in cognition. 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 When he woke up some time after 10 and tried to get out of bed, he fell onto the wall. Both legs were very weak and "wouldn't do what I wanted them to." He also felt somewhat cognitively impaired as though he had ingested some type of psychoactive drug. He was able to get up on his feet ultimately and get out of his bedroom. He ended up presenting to the emergency room yesterday midday. It was initially thought he had weakness of one leg by Dr. Callaway, who called me. Dr. Cole went to admit the patient and got a history that he was weak in both legs and that he felt cognitively not himself. He was admitted for further evaluation. He was noted to have cellulitis of his left foot and received ceftriaxone. He developed a fever after admission as well. His creatinine was elevated and urine was abnormal. Currently, he feels better today. He still feels like mentally he is not himself. He feels his walking is much improved. He has chronic neuropathy and pain in his feet and that has not changed. There is more pain in the left foot now, however, and it is swollen and red. There is no change in stiffness in his hands that he has had for some time. He has not noticed any change in vision. There is no new numbness anywhere in his limbs otherwise or his face. He has not had any problems with double vision or change in vision. PAST MEDICAL HISTORY: Notable for diabetes; prostate cancer, treated with radiation and then subsequent need for diversion urostomy. He has stage 3 chronic kidney disease, multiple podiatric surgeries, recurrent deep vein thromboses. He has history of coronary artery disease with stenting in 2012. MEDICATIONS: At home consist of: 1. Aspirin 81 mg p.o. q. day. 2. Famotidine 10 mg p.o. b.i.d. 3. Gabapentin 900 mg a day in 2 divided doses. 4. Glipizide 2.5 mg p.o. q.h.s. 5. Lisinopril 5 mg p.o. q. day. 6. Metformin 1000 mg p.o. b.i.d. 7. Metoprolol 25 mg p.o. q. day. 8. Multivitamin. 9. Fish oil. 10. Pravastatin 40 mg p.o. q. day. ALLERGIES: He is allergic to LATEX and ADHESIVE TAPE. SOCIAL HISTORY: He does not do drugs. 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 He travels to [place] Saturday to Saturday and is in [place] just on the weekends. He lives with his . REVIEW OF SYSTEMS: Notable for chills, but not sweats. He has not had any recent coughs or colds. No problems with breathing. No recent shortness of breath. He has the chronic pain in his feet. He just a week ago had podiatric procedure to remove a callus of his left foot which is the one that is infected. PHYSICAL EXAM: He is a little overweight. Most recent temperature 100.4 by temporal scan, blood pressure 121/57, heart rate 78. Respiratory rate is 16 and oxygen saturation is 95% on room air. Heart tones are normal without murmurs. Lungs are clear bilaterally. There are no cervical bruits. He has marked erythema of the left foot up into above the ankle and marked edema of the left foot. There is no significant edema in the right foot. Neurological Exam: Pupils react equally from about 3 down to 2 mm bilaterally. Eye movements and visual díaz are normal. Funduscopic exam is unremarkable bilaterally. Facial musculature is symmetric. Palate and tongue appear normal and speech is clear without dysarthria. Light touch is symmetrical on the face. Motor exam reveals some pain with testing about the left hip. He has weak ankle plantar and dorsiflexion bilaterally. He has mild intrinsic hand muscle weakness. He has good strength proximally in the limbs, other than is limited by pain in the left hip. He has stocking-glove sensory loss to light touch and vibration. This is to about the proximal third of the tibias bilaterally and to the metacarpal joints in the hands. Reflexes are trace at the knees and trace at the triceps bilaterally. There is no rest tremor. Finger taps are fairly normal bilaterally. Finger-to- nose maneuver is normal bilaterally. He is alert and oriented and able to give a good detailed history. He does lose his train of thought at times and has difficulty coming up with words at times. Generally, however, language is otherwise fluent. DIAGNOSTIC STUDIES/LAB DATA: Includes CBC with elevated white blood cell count this morning at 12.2; it was 11.6 yesterday when he came in. Hemoglobin is down at 11.5. Chemistries are notable for creatinine that has risen to 1.79 today. It was elevated yesterday in the 1.64 range. Hemoglobin A1c this morning is 6.8%. The rest of his electrolytes are unremarkable. His vitamin B12 level is low at 175 and he has since been given 1000 mcg parenteral B12. TSH normal at 0.79. INR upon presentation normal at 0.98. Urinalysis is notable for 3+ leukocyte esterase, 3+ white blood cells, 3+ red blood cells, 1+ blood as well. There is no urine culture that I can see. CT angiogram of the head was done last evening and was interpreted as normal. Transthoracic echocardiogram done earlier today revealed no significant abnormalities other than mild decreased ejection fraction. IMPRESSION AND PLAN: Impression is that of probable metabolic encephalopathy from infection either at least of the skin, but possible his urine as well. He has an MRI pending to look for evidence of a cerebrovascular event, although I think that is unlikely here. He also has vitamin B12 deficiency, which could further alter his cognition, but I would not expect an acute change. Recommend continuing to treat his infection and hydrate. If his creatinine continues to rise, then he may need a urology consult. He should get parenteral B12 1000 mcg once per week for 1 month and then monthly thereafter. Alternatively, he could be switched to oral B12 and have his B12 rechecked over the subsequent months. I have discussed this with Yuniel Bianka, and we will follow with him after his MRI scan. [id number]/[facility] #: [id number] [facility]ROAT HOSPITALIdania
--- NOTE | 2018-04-16 17:17 | PN ---
Hospitalist Progress Note Date of Service: 04/16/18 HOSPITALIST ADDENDUM Patient now meets sepsis criteria with fever and tachypnea. qSOFA is 1 ( tachypnea). Source is LLE cellulitis, likely streptococcal. Will check labs, including LA and blood cultures, continue Ceftriaxone, give 30ml/kg fluid bolus. With his h/o urostomy, creatinine elevation, positive urine culture, will also check CT abd/pelvis to r/o hydronephrosis.
[2018-04-16 17:27] LABS: Hematocrit 36 % (42-52); Hemoglobin 11.7 g/dl (14.0-18.0); Mean Corpuscular HGB Conc 33 g/dl (31-36); Mean Corpuscular Hemoglobin 31 pg (27-31); Mean Corpuscular Volume 93 fL (80-94); Mean Platelet Volume 7.6 fL (7.4-10.4); Platelet Count 215 10^3/ul (150-450); Red Blood Count 3.81 10^6/ul (4.00-5.40); Red Cell Distribution Width 13 % (10.5-15); White Blood Count 15.6 10^3/ul (3.5-10.8)
[2018-04-16] MEDS: Lactated Ringers 1000 ML Bag* 1,000 ML IV.FLUID IV ONE ×3 (17:32→20:00)
[2018-04-16] MEDS: Atorvastatin* 40 MG TAB PO SCH (17:33)
[2018-04-16] MEDS: Acetaminophen TAB* 325 MG PO PRN (17:33)
[2018-04-16 17:48] LABS: Albumin 4.3 g/dL (3.2-5.2); Albumin/Globulin Ratio 1.5 (1-3); C Reactive Protein 115.34 mg/L (<8.01); Calcium 9.4 mg/dL (8.6-10.3); EGFR Non-African American 40.5 (>60); Globulin 2.9 g/dL (2-4); Potassium 4.2 mmol/L (3.5-5.0); Total Bilirubin 0.4 mg/dL (0.2-1.0); Total Protein 7.2 g/dL (6.4-8.9)
[2018-04-16 17:56] LABS: ABS Basophils 0.1 10^3/ul (0-0.2); ABS Eosinophils 0.1 10^3/ul (0-0.6); ABS Lymphocytes 1.3 10^3/ul (1.0-4.8); ABS Neutrophils 12.1 10^3/ul (1.5-7.7); ABS Nucleated RBC 0 10^3/ul; Eosinophil % 0.6 %; Lymphocyte % 8.5 %; Nucleated Red Blood Cells % 0
[2018-04-16] MEDS: Melatonin 3 MG TAB PO SCH (21:52)
[2018-04-16] MEDS: Lactated Ringers 1000 ML Bag* 1,000 ML IV SCH (21:52)
[2018-04-17] MEDS: cefTRIAXone(*) 1 GM in NS 0.9% 50 ML* 50 ML IVPB SCH (01:32)
[2018-04-17] MEDS: Heparin VIAL(*) 5000 UNITS/ML VIAL (FIVE THOUSAND) SUBCUT SCH ×3 (05:34→22:05)
[2018-04-17] MEDS: Lactated Ringers 1000 ML Bag* 1,000 ML IV SCH ×2 (06:08→15:49)
[2018-04-17] MEDS: Mometasone/Formoter 200/5 MDI INH SCH ×2 (08:40→20:27)
[2018-04-17] MEDS: Gabapentin CAP(*) 300 MG PO SCH ×2 (09:03→21:43)
[2018-04-17] MEDS: Metoprolol Succinate XL TAB* 25 MG PO SCH (09:03)
[2018-04-17] MEDS: Clopidogrel TAB* 75 MG PO SCH (09:03)
[2018-04-17] MEDS: Montelukast Sodium TAB* 10 MG PO SCH (09:03)
[2018-04-17] MEDS: Famotidine TAB* 20 MG PO SCH (09:04)
[2018-04-17] MEDS: Aspirin EC TAB* 81 MG TAB.EC PO SCH (09:04)
[2018-04-17] MEDS: Insulin LISPRO* 1 UNITS UNIT SUBCUT SCH ×4 (09:06→21:49)
[2018-04-17] MEDS: Fluticasone NASAL SPRAY 50MCG* 16 gm SPRAY BTL BOTH NARES SCH (09:06)
--- NOTE | 2018-04-17 14:14 | CONS ---
CONSULTATION REPORT: DATE OF CONSULT: 04/17/18 REQUESTING PHYSICIAN: Dr. Clark. CONSULTING SERVICE: Infectious Disease. REASON FOR CONSULT: Sepsis, cellulitis. IMPRESSION: 1. Sepsis present on admission, resolved. 2. Left leg cellulitis in the setting of multiple lower extremity surgeries, likely streptococcus and improving. 3. Citrobacter in the urine in the setting of ileal conduit which he self catheterizes. I think this is most likely a contaminant. 4. Type 2 diabetes with neuropathy. 5. LATEX allergy. RECOMMENDATIONS: We will continue ceftriaxone and follow his leg progress here and likely soon switch over to oral antibiotics. If he is not improving, we would consider further imaging of his foot given the multiple past surgeries, but I think that is less likely. HISTORY OF PRESENT ILLNESS: This is a 72-year-old male with diabetes, admitted with difficulty with word finding and difficulty walking, thought initially to have a stroke but subsequently found to be related to infection with a fever of 103. Brain MRI was unremarkable. He after arrival started to develop redness and swelling in his left leg. He had an ultrasound, showed no clot. He was started on ceftriaxone for cellulitis. Swelling felt a bit worse today but the redness and pain are decreased. He is feeling back to his usual self. He had noted that he did have trouble findings words, could not get around very well and felt a little bit confused, all of which are improved and in fact resolved. He has had a number of episodes of cellulitis in both legs over the years, none for more than a year. PAST MEDICAL HISTORY: 1. Type 2 diabetes. 2. Bilateral foot surgeries, multiple for hammer toe and resection of metatarsal heads. Does not felt like there was fusion. 3. Peripheral neuropathy. 4. History of cellulitis. 5. Stage 3 chronic kidney disease. 6. Coronary disease, status post PCI 2012. 7. Prostate cancer, status post resection and urinary diversion with ileostomy which he self catheterizes. 8. Status post umbilical hernia repair. 9. Status post appendectomy. 10. Status post tonsillectomy. 11. Recurrent DVT. MEDICATIONS: 1. Ceftriaxone 1 g a day. 2. Aspirin. 3. Tylenol. 4. Lipitor. 5. Plavix. 6. Fluticasone nasal spray. 7. Famotidine. 8. Gabapentin. 9. Heparin subcutaneous injection. 10. Metoprolol. 11. Singulair. 12. Nitroglycerin as needed. ALLERGIES: TAPE and LATEX. FAMILY HISTORY: No recurrent infections. 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 Nonsmoker, no injection, no alcohol. REVIEW OF SYSTEMS: All negative except as noted above in the 14-point review. PHYSICAL EXAM: Vital Signs: Temperature 37, heart rate 80, respiratory rate 18 , blood pressure 140/90, oxygen saturation 93% on room air. In general, he is awake, not in distress. Neurologic: He is oriented x3. Follows all commands with decreased sensation to light touch in both feet. HEENT: There is no conjunctival hemorrhage. Oropharynx without lesions. Neck is supple without mass. Heart is regular rate and rhythm without murmurs, rubs, or gallops. Lungs are clear to auscultation bilaterally. Abdomen: Soft, nontender, nondistended. Bowel sounds present. Skin: There is no splinter hemorrhage. The right lower leg, there is erythema down through the ankle and mid foot with some warmth. Musculoskeletal: There is no spine tenderness to palpation in the left ankle . There is no effusion, tenderness, or decreased range of motion. He has bilateral venous stasis changes. DIAGNOSTIC STUDIES/LAB DATA: White blood cell count 15, hemoglobin 11, platelets 215, creatinine 1.6, CRP 115. Please see impression and recommendations outlined above. Thank you for asking me to see Mr. Carlton in consultation. [id number]/[facility] #: [id number] SAMANTHA
--- NOTE | 2018-04-17 14:45 | PN ---
Subjective Date of Service: 04/17/18 Interval History: HOSPITALIST PROGRESS NOTE Patient seen and examined at bedside. Care reviewed and d/w Cee Medrano RN. He overall feels better. Fever has subsided, mind is clearer, but LLE is still warm, red, and tender. Family History: Unchanged from Admission Social History: Unchanged from Admission Past Medical History: Unchanged from Admission Objective Active Medications: Acetaminophen (Tylenol Tab*) 650 mg PO Q4H PRN PRN Reason: pain/fever Last Admin: 04/16/18 17:33 Dose: 650 mg Aspirin (Aspirin Ec Tab*) 81 mg PO DAILY [facility] Last Admin: 04/17/18 09:04 Dose: 81 mg Atorvastatin Calcium (Lipitor*) 40 mg PO 1700 [facility] Last Admin: 04/16/18 17:33 Dose: 40 mg Clopidogrel Bisulfate (Plavix Tab*) 75 mg PO DAILY [facility] Last Admin: 04/17/18 09:03 Dose: 75 mg Dextrose (D50w Syringe 50 Ml*) 12.5 gm IV PUSH .FOR FS < 60 - SS PRN PRN Reason: FS < 60 Famotidine (Pepcid Tab*) 20 mg PO DAILY [facility] Last Admin: 04/17/18 09:04 Dose: 20 mg Fluticasone Propionate (Flonase Nasal [place] 50mcg*) 2 spray BOTH NARES DAILY [facility] Last Admin: 04/17/18 09:06 Dose: 2 spray Gabapentin (Neurontin Cap(*)) 600 mg PO BEDTIME [facility] Last Admin: 04/16/18 21:51 Dose: 600 mg Gabapentin (Neurontin Cap(*)) 300 mg PO QAM [facility] Last Admin: 04/17/18 09:03 Dose: 300 mg Heparin Sodium (Porcine) (Heparin Vial(*)) 5,000 units SUBCUT Q8HR [facility] Last Admin: 04/17/18 14:05 Dose: 5,000 units Ceftriaxone Sodium 1 gm/ (Sodium Chloride) 50 mls @ 200 mls/hr IVPB Q24H [facility] Last Admin: 04/17/18 01:32 Dose: 200 mls/hr Lactated Ringer's (Lactated Ringers 1000 Ml Bag*) 1,000 mls @ 75 mls/hr IV PER RATE [facility] Insulin Human Lispro (Humalog*) 0 units SUBCUT ACHS [facility]; Protocol Last Admin: 04/17/18 14:05 Dose: 2 unit Melatonin (Melatonin) 6 mg PO BEDTIME [facility] Last Admin: 04/16/18 21:52 Dose: 6 mg Metoprolol Succinate (Toprol Xl Tab*) 25 mg PO DAILY [facility] Last Admin: 04/17/18 09:03 Dose: 25 mg Mometasone Furoate/Formoterol Fumar (Dulera 200/5 Mdi*) 2 puff INH BID [facility]; Protocol Last Admin: 04/17/18 08:40 Dose: 2 puff Montelukast Sodium (Singulair Tab*) 10 mg PO DAILY [facility] Last Admin: 04/17/18 09:03 Dose: 10 mg Nitroglycerin (Nitroglycerin Tab 0.4 Mg*) 0.4 mg SL Q5M PRN PRN Reason: chest pain Vital Signs - 8 hr 04/17/18 04/17/18 04/17/18 07:24 08:00 09:03 Temperature 98.7 F Pulse Rate 84 Respiratory 18 18 18 Rate Blood Pressure 139/66 (mmHg) O2 Sat by Pulse 93 Oximetry 04/17/18 04/17/18 11:41 13:43 Temperature 99.3 F Pulse Rate 86 Respiratory 18 16 Rate Blood Pressure 127/65 (mmHg) O2 Sat by Pulse 94 Oximetry Oxygen Devices in Use Now: None Appearance: Pleasant gentleman sitting up in bed in [facility]. Eyes: No Scleral Icterus Ears/Nose/Mouth/Throat: Mucous Membranes Moist Neck: Trachea Midline Respiratory: Symmetrical Chest Expansion and Respiratory Effort, Clear to Auscultation Cardiovascular: NL Sounds; No Murmurs; No JVD, RRR Abdominal: NL Sounds; No Tenderness; No Distention, - - Functional ileostomy/ urostomy in RLQ Extremities: - - LLE edema, warmth, erythema, less intense than yesterday Neurological: Alert and Oriented x 3, NL Muscle Strength and Tone Result Diagrams: 04/16/18 17:16 04/16/18 17:16 Microbiology and Other Data: Microbiology 04/15/18 18:12 Urine Culture - Preliminary Urine Citrobacter Freundii Assess/Plan/Problems-Billing Assessment: Mr Carlton is a 72yo M with PMH of 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 - Patient Problems (1) Sepsis Comment: - Yesterday patient met sepsis criteria with fever and tachypnea. - qSOFA was 1 (tachypnea). - Source is LLE cellulitis, likely streptococcal. (2) Gait abnormality Comment: - Neurology consult appreciated. - MRI brain was negative. - Echocardiogram shows EF 50-55%, inferior wall hypokinesis (present in 2012), no PFO or significant vascular disease. - Suspect initial symptoms were associated with infection - they're now resolved. - Continue Aspirin and statin. - D/c Plavix. (3) Cellulitis Comment: - Suspect streptococcal - continue Ceftriaxone. - ID consult requested. (4) B12 deficiency Comment: - May be playing a role on his mild cognition issues. - Replete - plan for 1000mg once a month x 4 weeks, then once a month. (5) CAD (coronary artery disease) Comment: - Stable. - Continue Aspirin, Metoprolol, statin. (6) CKD (chronic kidney disease) stage 3, GFR 30-59 ml/min Comment: - Continue to monitor renal function. (7) History of urostomy Comment: - Urine culture growing Citrobacter - likely colonization - but if infection, Ceftriaxone should cover it. - CT abd/pelvis with no acute findings, no obstructing stones. (8) Diabetes mellitus type 2 Comment: - A1c is 6.8 - continue Lispro SS. (9) DVT prophylaxis Comment: - Continue SQ heparin and avoid SCDs due to cellulitis. (10) Full code status Status and Disposition: Inpatient to continue cellulitis treatment.
[2018-04-17] MEDS: Atorvastatin* 40 MG TAB PO SCH (17:57)
[2018-04-17] MEDS: Melatonin 3 MG TAB PO SCH (21:43)
[2018-04-18] MEDS: cefTRIAXone(*) 1 GM in NS 0.9% 50 ML* 50 ML IVPB SCH (01:14)
[2018-04-18] MEDS: Heparin VIAL(*) 5000 UNITS/ML VIAL (FIVE THOUSAND) SUBCUT SCH ×3 (05:09→20:57)
[2018-04-18] MEDS: Lactated Ringers 1000 ML Bag* 1,000 ML IV SCH ×2 (05:09→18:53)
[2018-04-18 06:35] LABS: ABS Basophils 0 10^3/ul (0-0.2); ABS Eosinophils 0.4 10^3/ul (0-0.6); ABS Lymphocytes 1.7 10^3/ul (1.0-4.8); ABS Monocytes 1.1 10^3/ul (0-0.8); ABS Neutrophils 5.4 10^3/ul (1.5-7.7); ABS Nucleated RBC 0 10^3/ul; Eosinophil % 4.3 %; Hematocrit 31 % (42-52); Hemoglobin 10.5 g/dl (14.0-18.0); Lymphocyte % 19.7 %; Mean Corpuscular HGB Conc 34 g/dl (31-36); Mean Corpuscular Hemoglobin 32 pg (27-31); Mean Corpuscular Volume 93 fL (80-94); Mean Platelet Volume 7.8 fL (7.4-10.4); Nucleated Red Blood Cells % 0; Platelet Count 195 10^3/ul (150-450); Red Cell Distribution Width 13 % (10.5-15); White Blood Count 8.6 10^3/ul (3.5-10.8)
[2018-04-18 06:51] LABS: Calcium 8.9 mg/dL (8.6-10.3); EGFR Non-African American 52.1 (>60); Potassium 4.1 mmol/L (3.5-5.0)
[2018-04-18] MEDS: Mometasone/Formoter 200/5 MDI INH SCH ×2 (07:50→19:20)
[2018-04-18] MEDS: Insulin LISPRO* 1 UNITS UNIT SUBCUT SCH ×4 (09:26→20:57)
[2018-04-18] MEDS: Montelukast Sodium TAB* 10 MG PO SCH (09:26)
[2018-04-18] MEDS: Gabapentin CAP(*) 300 MG PO SCH ×2 (09:26→20:58)
[2018-04-18] MEDS: Aspirin EC TAB* 81 MG TAB.EC PO SCH (09:27)
[2018-04-18] MEDS: Metoprolol Succinate XL TAB* 25 MG PO SCH (09:27)
[2018-04-18] MEDS: Fluticasone NASAL SPRAY 50MCG* 16 gm SPRAY BTL BOTH NARES SCH (09:27)
[2018-04-18] MEDS: Famotidine TAB* 20 MG PO SCH (09:27)
--- NOTE | 2018-04-18 14:13 | PN ---
Subjective Date of Service: 04/18/18 Interval History: Pt is feeling ok today. He states his gait is back to baseline. He feels weak from lying in bed but much better than admission. He feels the mental fogginess is also much improved but he has been having intermittent periods where he forgets a word. He is concerned about his L foot and what the cellulitis looks like. He denies any diarrhea. Family History: Unchanged from Admission Social History: Unchanged from Admission Past Medical History: Unchanged from Admission Objective Active Medications: Acetaminophen (Tylenol Tab*) 650 mg PO Q4H PRN PRN Reason: pain/fever Last Admin: 04/16/18 17:33 Dose: 650 mg Aspirin (Aspirin Ec Tab*) 81 mg PO DAILY [facility] Last Admin: 04/18/18 09:27 Dose: 81 mg Atorvastatin Calcium (Lipitor*) 40 mg PO 1700 [facility] Last Admin: 04/17/18 17:57 Dose: 40 mg Dextrose (D50w Syringe 50 Ml*) 12.5 gm IV PUSH .FOR FS < 60 - SS PRN PRN Reason: FS < 60 Famotidine (Pepcid Tab*) 20 mg PO DAILY [facility] Last Admin: 04/18/18 09:27 Dose: 20 mg Fluticasone Propionate (Flonase Nasal [place] 50mcg*) 2 spray BOTH NARES DAILY [facility] Last Admin: 04/18/18 09:27 Dose: 2 spray Gabapentin (Neurontin Cap(*)) 600 mg PO BEDTIME [facility] Last Admin: 04/17/18 21:43 Dose: 600 mg Gabapentin (Neurontin Cap(*)) 300 mg PO QAM [facility] Last Admin: 04/18/18 09:26 Dose: 300 mg Heparin Sodium (Porcine) (Heparin Vial(*)) 5,000 units SUBCUT Q8HR [facility] Last Admin: 04/18/18 13:54 Dose: 5,000 units Ceftriaxone Sodium 1 gm/ (Sodium Chloride) 50 mls @ 200 mls/hr IVPB Q24H [facility] Last Admin: 04/18/18 01:14 Dose: 200 mls/hr Lactated Ringer's (Lactated Ringers 1000 Ml Bag*) 1,000 mls @ 75 mls/hr IV PER RATE [facility] Last Admin: 04/18/18 05:09 Dose: 75 mls/hr Insulin Human Lispro (Humalog*) 0 units SUBCUT ACHS [facility]; Protocol Last Admin: 04/18/18 13:53 Dose: 2 unit Melatonin (Melatonin) 6 mg PO BEDTIME [facility] Last Admin: 04/17/18 21:43 Dose: 6 mg Metoprolol Succinate (Toprol Xl Tab*) 25 mg PO DAILY [facility] Last Admin: 04/18/18 09:27 Dose: 25 mg Mometasone Furoate/Formoterol Fumar (Dulera 200/5 Mdi*) 2 puff INH BID [facility]; Protocol Last Admin: 04/18/18 07:50 Dose: 2 puff Montelukast Sodium (Singulair Tab*) 10 mg PO DAILY [facility] Last Admin: 04/18/18 09:26 Dose: 10 mg Nitroglycerin (Nitroglycerin Tab 0.4 Mg*) 0.4 mg SL Q5M PRN PRN Reason: chest pain Vital Signs - 8 hr 04/18/18 04/18/18 04/18/18 07:10 07:55 09:26 Temperature 98.1 F Pulse Rate 77 Respiratory 18 16 16 Rate Blood Pressure 129/71 (mmHg) O2 Sat by Pulse 98 Oximetry 04/18/18 13:54 Temperature Pulse Rate Respiratory 16 Rate Blood Pressure (mmHg) O2 Sat by Pulse Oximetry Oxygen Devices in Use Now: None Appearance: Elderly male sitting up in bed, NAD Eyes: No Scleral Icterus Ears/Nose/Mouth/Throat: Mucous Membranes Moist Respiratory: Symmetrical Chest Expansion and Respiratory Effort, Clear to Auscultation Cardiovascular: NL Sounds; No Murmurs; No JVD, RRR Abdominal: NL Sounds; No Tenderness; No Distention Extremities: No Clubbing, Cyanosis Skin: - - minimal left medial ankle erythema, overylying the lateral aspect of the 5th metatarsal head area (his has been removed) is what appears to be a blister with serous drainage; per nursing the blister is 3x larger than this AM , there has also been increased serous drainage; the tissue underlying the blister is boggy Neurological: Alert and Oriented x 3 Result Diagrams: 04/18/18 06:01 04/18/18 06:01 Microbiology and Other Data: Microbiology 04/15/18 18:12 Urine Culture - Preliminary Urine Citrobacter Freundii Assess/Plan/Problems-Billing Mr Carlton is a 72yo M with a PMHx of 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 - Patient Problems (1) Cellulitis Current Visit: Yes Status: Acute Code(s): L03.90 - CELLULITIS, UNSPECIFIED SNOMED Code(s): 606091432 Comment: Pt developed sepsis likley streptococcal cellulitis of the L ankle/ foot. This may also be the cause of the blister on the lateral aspect of the foot. ? need for imaging to r/o deep tissue infection. Call out to Dr. Kimbrough. Continue ceftriaxone for now. (2) Gait abnormality Current Visit: Yes Status: Acute Code(s): R26.9 - UNSPECIFIED ABNORMALITIES OF GAIT AND MOBILITY SNOMED Code(s): 60772379 Comment: Likely seconary to infection as once the infection was treated his gait instability improved. No evidence of CVA as cause. Continue ASA and statin. (3) B12 deficiency Current Visit: Yes Status: Acute Code(s): E53.8 - DEFICIENCY OF OTHER SPECIFIED B GROUP VITAMINS SNOMED Code(s): 737795038 Comment: Pt reports a history of mild cognition issues (forgetting words, stopping talking in mid conversation) for a little while. ? secondary to B12 deficiency. Pt will be giving himself B12 injections weekly for 1 month then monthly thereafter. The B12 deficiency may also contribute to his neuropathy. (4) CKD (chronic kidney disease) stage 3, GFR 30-59 ml/min Current Visit: Yes Status: Acute Code(s): N18.3 - CHRONIC KIDNEY DISEASE, STAGE 3 (MODERATE) SNOMED Code(s): 243446374 Comment: Pt with likely stage III CKD secondary to diabetic nephropathy. Creatinine has trended down today as infection has likely improved. Continue to monitor renal function. (5) Diabetes mellitus type 2 Current Visit: Yes Status: Chronic Priority: Low Code(s): E11.9 - TYPE 2 DIABETES MELLITUS WITHOUT COMPLICATIONS SNOMED Code(s): 26166974 Comment: Sugars are generally under good control. Metformin is on hold and it is questionable if it should be restarted on discharge as his creatinine was >1.5 on admisison. Continue lispro sliding scale for now. (6) CAD (coronary artery disease) Current Visit: Yes Status: Acute Code(s): I25.10 - ATHSCL HEART DISEASE OF [place] CORONARY ARTERY W/O ANG PCTRS SNOMED Code(s): 25299324 Comment: Stable and without complaints of chest pain. Continue aspirin, metoprolol and statin. (7) History of urostomy Current Visit: Yes Status: Acute Code(s): Z98.890 - OTHER SPECIFIED POSTPROCEDURAL STATES SNOMED Code(s): 729636958 Comment: Urine culture growing citrobacter but likely colonization given pt' s urostomy. (8) DVT prophylaxis Current Visit: Yes Status: Acute Code(s): THO5349 - SNOMED Code(s): 772447571 Comment: SQ heparin (9) Full code status Current Visit: Yes Status: Acute Code(s): Z78.9 - OTHER SPECIFIED HEALTH STATUS SNOMED Code(s): 892951558 Status and Disposition: .
[2018-04-18] MEDS: Atorvastatin* 40 MG TAB PO SCH (18:04)
[2018-04-18] MEDS: Melatonin 3 MG TAB PO SCH (20:57)
[2018-04-19] MEDS: cefTRIAXone(*) 1 GM in NS 0.9% 50 ML* 50 ML IVPB SCH (01:00)
[2018-04-19] MEDS: Heparin VIAL(*) 5000 UNITS/ML VIAL (FIVE THOUSAND) SUBCUT SCH ×3 (05:04→20:35)
[2018-04-19] MEDS: Acetaminophen TAB* 325 MG PO PRN ×2 (05:07→16:10)
[2018-04-19 05:43] LABS: ABS Basophils 0 10^3/ul (0-0.2); ABS Eosinophils 0.5 10^3/ul (0-0.6); ABS Lymphocytes 1.5 10^3/ul (1.0-4.8); ABS Neutrophils 4.9 10^3/ul (1.5-7.7); ABS Nucleated RBC 0 10^3/ul; Eosinophil % 5.9 %; Hematocrit 31 % (42-52); Hemoglobin 10.7 g/dl (14.0-18.0); Lymphocyte % 19.5 %; Mean Corpuscular HGB Conc 34 g/dl (31-36); Mean Corpuscular Hemoglobin 32 pg (27-31); Mean Corpuscular Volume 92 fL (80-94); Mean Platelet Volume 7.6 fL (7.4-10.4); Nucleated Red Blood Cells % 0; Platelet Count 216 10^3/ul (150-450); Red Blood Count 3.37 10^6/ul (4.00-5.40); Red Cell Distribution Width 13 % (10.5-15); White Blood Count 7.9 10^3/ul (3.5-10.8)
[2018-04-19 06:01] LABS: BUN/Creatinine Ratio 16.9 (8-20); C Reactive Protein 78.63 mg/L (<8.01); EGFR African American 65.8 (>60); EGFR Non-African American 54.4 (>60); Potassium 4.1 mmol/L (3.5-5.0)
[2018-04-19] MEDS: Mometasone/Formoter 200/5 MDI INH SCH ×2 (08:10→21:02)
[2018-04-19] MEDS: Metoprolol Succinate XL TAB* 25 MG PO SCH (08:34)
[2018-04-19] MEDS: Montelukast Sodium TAB* 10 MG PO SCH (08:34)
[2018-04-19] MEDS: Aspirin EC TAB* 81 MG TAB.EC PO SCH (08:34)
[2018-04-19] MEDS: Gabapentin CAP(*) 300 MG PO SCH ×2 (08:34→20:29)
[2018-04-19] MEDS: Famotidine TAB* 20 MG PO SCH (08:34)
[2018-04-19] MEDS: Fluticasone NASAL SPRAY 50MCG* 16 gm SPRAY BTL BOTH NARES SCH (08:34)
[2018-04-19] MEDS: Insulin LISPRO* 1 UNITS UNIT SUBCUT SCH ×4 (08:35→21:34)
[2018-04-19] MEDS: Lactated Ringers 1000 ML Bag* 1,000 ML IV SCH (09:33)
--- NOTE | 2018-04-19 12:21 | PN ---
Subjective Date of Service: 04/19/18 Interval History: patient reports he feels better today. He reports less swelling in foot and wound appears "a little better". No fevers in 36 hours. No chills. Reports good appetite. Denies diarrhea. at bedside. Family History: Unchanged from Admission Social History: Unchanged from Admission Past Medical History: Unchanged from Admission Objective Active Medications: Acetaminophen (Tylenol Tab*) 650 mg PO Q4H PRN PRN Reason: pain/fever Last Admin: 04/19/18 05:07 Dose: 650 mg Aspirin (Aspirin Ec Tab*) 81 mg PO DAILY [facility] Last Admin: 04/19/18 08:34 Dose: 81 mg Atorvastatin Calcium (Lipitor*) 40 mg PO 1700 [facility] Last Admin: 04/18/18 18:04 Dose: 40 mg Dextrose (D50w Syringe 50 Ml*) 12.5 gm IV PUSH .FOR FS < 60 - SS PRN PRN Reason: FS < 60 Famotidine (Pepcid Tab*) 20 mg PO DAILY [facility] Last Admin: 04/19/18 08:34 Dose: 20 mg Fluticasone Propionate (Flonase Nasal [place] 50mcg*) 2 spray BOTH NARES DAILY [facility] Last Admin: 04/19/18 08:34 Dose: 2 spray Gabapentin (Neurontin Cap(*)) 600 mg PO BEDTIME [facility] Last Admin: 04/18/18 20:58 Dose: 600 mg Gabapentin (Neurontin Cap(*)) 300 mg PO QAM [facility] Last Admin: 04/19/18 08:34 Dose: 300 mg Heparin Sodium (Porcine) (Heparin Vial(*)) 5,000 units SUBCUT Q8HR [facility] Last Admin: 04/19/18 05:04 Dose: 5,000 units Ceftriaxone Sodium 1 gm/ (Sodium Chloride) 50 mls @ 200 mls/hr IVPB Q24H [facility] Last Admin: 04/19/18 01:00 Dose: 200 mls/hr Lactated Ringer's (Lactated Ringers 1000 Ml Bag*) 1,000 mls @ 75 mls/hr IV PER RATE [facility] Last Admin: 04/19/18 09:33 Dose: 75 mls/hr Insulin Human Lispro (Humalog*) 0 units SUBCUT ACHS [facility]; Protocol Last Admin: 04/19/18 11:51 Dose: 2 unit Melatonin (Melatonin) 6 mg PO BEDTIME [facility] Last Admin: 04/18/18 20:57 Dose: 6 mg Metoprolol Succinate (Toprol Xl Tab*) 25 mg PO DAILY [facility] Last Admin: 04/19/18 08:34 Dose: 25 mg Mometasone Furoate/Formoterol Fumar (Dulera 200/5 Mdi*) 2 puff INH BID [facility]; Protocol Last Admin: 04/19/18 08:10 Dose: 2 puff Montelukast Sodium (Singulair Tab*) 10 mg PO DAILY [facility] Last Admin: 04/19/18 08:34 Dose: 10 mg Nitroglycerin (Nitroglycerin Tab 0.4 Mg*) 0.4 mg SL Q5M PRN PRN Reason: chest pain Vital Signs - 8 hr 04/19/18 04/19/18 04/19/18 07:27 08:00 08:10 Temperature 98.3 F Pulse Rate 70 69 Respiratory 16 16 18 Rate Blood Pressure 121/65 (mmHg) O2 Sat by Pulse 96 95 Oximetry 04/19/18 04/19/18 04/19/18 08:34 10:44 11:22 Temperature 97.3 F Pulse Rate 74 Respiratory 16 16 16 Rate Blood Pressure 130/76 (mmHg) O2 Sat by Pulse 96 Oximetry Oxygen Devices in Use Now: None Appearance: 72 yo male sitting up in bed in NAD. A+O x3 Eyes: No Scleral Icterus, PERRLA Ears/Nose/Mouth/Throat: NL Teeth, Lips, Gums, Mucous Membranes Moist Neck: NL Appearance and Movements; NL JVP Respiratory: Symmetrical Chest Expansion and Respiratory Effort, Clear to Auscultation Cardiovascular: NL Sounds; No Murmurs; No JVD, RRR, No Edema Abdominal: NL Sounds; No Tenderness; No Distention Skin: - - Left lateral aspect of 5th metatarsal appears to be a open blister, no drainage or foul odor noted. no erythema noted. the skin is boggy but no noted areas of concern for abscess. Neurological: Alert and Oriented x 3, NL Sensation, NL Muscle Strength and Tone Lines/Tubes/Other Access: Clean, Dry and Intact Peripheral IV Result Diagrams: 04/19/18 05:20 04/19/18 05:20 Microbiology and Other Data: Microbiology 04/15/18 18:12 Urine Culture - Preliminary Urine Citrobacter Freundii Assess/Plan/Problems-Billing Mr Carlton is a 72yo M with a PMHx of 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 - Patient Problems (1) Cellulitis Comment: Sepsis resolved. Pt developed sepsis likely streptococcal cellulitis of the L ankle/foot. This may also be the cause of the blister on the lateral aspect of the foot. Does not appear to be an abscess. Concern with pt's hx of 17 surgeries on his left foot. Plan to obtain xray tonight and MRI foot saturday - Ortho consult placed CRP trending down Appreciate ID consult - suspects urine micro is colonization Blood cx negative Continue ceftriaxone Obtain records from [place] (2) Gait abnormality Comment: Likely secondary to infection as once the infection was treated his gait instability improved. No evidence of CVA as cause. Appreciate Neuro consult who agrees MRI Brain negative for acute intacranial process Continue ASA and statin. (3) B12 deficiency Comment: Pt reports a history of mild cognition issues (forgetting words, stopping talking in mid conversation) for a little while. ? secondary to B12 deficiency. Pt will be giving himself B12 injections weekly for 1 month then monthly thereafter. The B12 deficiency may also contribute to his neuropathy. (4) CAD (coronary artery disease) Comment: Stable and without complaints of chest pain. Continue aspirin, metoprolol and statin. (5) CKD (chronic kidney disease) stage 3, GFR 30-59 ml/min Comment: Pt with likely stage III CKD secondary to diabetic nephropathy. Creatinine continues to trend down today as infection has likely improved. Continue to monitor renal function. (6) History of urostomy Comment: Urine culture growing citrobacter but likely colonization given pt's urostomy. (7) Diabetes mellitus type 2 Comment: Fairly good control. Metformin is on hold and it is questionable if it should be restarted on discharge as his creatinine was >1.5 on admisison. Continue lispro sliding scale for now. (8) DVT prophylaxis Comment: SQ heparin (9) Full code status Status and Disposition: .inpatient
[2018-04-19] MEDS: Atorvastatin* 40 MG TAB PO SCH (16:10)
--- NOTE | 2018-04-19 19:30 | CONS ---
CONSULTATION REPORT: DATE OF CONSULT: 04/19/18 CHIEF COMPLAINT: Left foot infection. HISTORY OF PRESENT ILLNESS: Jus is 72. He has a longstanding history of diabetic foot issues. He has had diabetes for quite some time and he has severe peripheral neuropathy associated with this. He had some initial procedures done on the feet several years back by Dr. Mendoza. Ultimately, he ended up down at [place] with a limb salvage specialist there. He has had I believe 17 surgeries total on the feet. He has done quite well for the last 7 or 8 years. He has not had any surgery or really any infection. He came in to the hospital shortly after the New Year with a septic type picture. Shortly thereafter, he developed an infection over the lateral aspect of the forefoot of the left foot. It has gotten quite red. He has had a little bit of an ulceration there. He has been seen by Dr. Kimbrough of Infectious Disease. He is on IV antibiotics. Orthopedics was consulted for potential surgical needs. PAST MEDICAL HISTORY: 1. Type 2 diabetes. 2. Bilateral foot surgeries. 3. Peripheral neuropathy. 4. History of cellulitis. 5. Stage 3 chronic kidney disease. 6. Coronary artery disease, status post PCI in 2012. 7. Prostate cancer, status post resection and urinary diversion with ileostomy. He self-catheterizes. 8. Status post umbilical hernia repair. 9. Status post appendectomy. 10. Status post tonsillectomy. 11. Recurrent DVT. PAST SURGICAL HISTORY: See above. MEDICATIONS: 1. Ceftriaxone. 2. Aspirin. 3. Tylenol. 4. Lipitor. 5. Plavix. 6. Fluticasone. 7. Famotidine. 8. Gabapentin. 9. Subcutaneous heparin. 10. Metoprolol. 11. Singulair. 12. Nitroglycerin. ALLERGIES: TAPE and LATEX. FAMILY HISTORY: No recurrent infections. 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 He is a nonsmoker. No recreational drug use. No alcohol. REVIEW OF SYSTEMS: Initially, he did have some fevers and some systemic symptoms. These have resolved. He is left with the swelling and redness in the left foot. He was febrile and that has since resolved. His last fever was on . PHYSICAL EXAMINATION: Afebrile. Vital signs are stable. The last fever was 102.1 on 04/16/18. General: Awake and alert, very pleasant, no distress. Skin : He has some erythema and swelling over the left lateral foot in the area where the second metatarsal head would be. There is some ulceration there. Musculoskeletal: Again, there is redness and swelling and an ulceration over the lateral aspect of the left forefoot. The rest of the foot is unremarkable. There is some seropurulent drainage in the area of the ulcer. DIAGNOSTIC STUDIES: X-rays of the left foot have not been done. IMPRESSION: Left forefoot diabetic foot infection in a patient who presented to the hospital with a septic type picture. The majority of the infectious signs developed after the patient was admitted to the hospital. PLAN: I would recommend x-rays of the left foot as well as MRI. We will evaluate the extent of osteomyelitis with that. X-rays will give us a general sense of what the bony architecture of the foot is given that he has had many surgeries. We will work on getting those studies and I will see if I can get one of our foot and ankle specialists to see him on Saturday as well. [id number]/CPS #: [id number] SAMANTHA
[2018-04-19] MEDS: Melatonin 3 MG TAB PO SCH (20:28)
[2018-04-20] MEDS: cefTRIAXone(*) 1 GM in NS 0.9% 50 ML* 50 ML IVPB SCH (00:18)
[2018-04-20] MEDS: Lactated Ringers 1000 ML Bag* 1,000 ML IV SCH (00:45)
[2018-04-20] MEDS: Heparin VIAL(*) 5000 UNITS/ML VIAL (FIVE THOUSAND) SUBCUT SCH ×3 (05:27→20:57)
[2018-04-20] MEDS: Mometasone/Formoter 200/5 MDI INH SCH ×2 (07:53→21:46)
[2018-04-20] MEDS: Metoprolol Succinate XL TAB* 25 MG PO SCH (08:26)
[2018-04-20] MEDS: Insulin LISPRO* 1 UNITS UNIT SUBCUT SCH ×4 (08:27→22:22)
[2018-04-20] MEDS: Acetaminophen TAB* 325 MG PO PRN (08:27)
[2018-04-20] MEDS: Montelukast Sodium TAB* 10 MG PO SCH (08:27)
[2018-04-20] MEDS: Aspirin EC TAB* 81 MG TAB.EC PO SCH (08:27)
[2018-04-20] MEDS: Fluticasone NASAL SPRAY 50MCG* 16 gm SPRAY BTL BOTH NARES SCH (08:27)
[2018-04-20] MEDS: Gabapentin CAP(*) 300 MG PO SCH ×2 (08:27→20:54)
[2018-04-20] MEDS: Famotidine TAB* 20 MG PO SCH (08:27)
--- NOTE | 2018-04-20 09:30 | PN ---
Subjective Date of Service: 04/20/18 Interval History: Pt reports he is feeling better everyday. he reports his left foot 'almost looks normal" and that the swelling has greatly reduced. Denies pain at site reporting he has sever neuropathy. Denies fever/chills. No SOB/CP. Reports normal BM this am. Reports good appetite Family History: Unchanged from Admission Social History: Unchanged from Admission Past Medical History: Unchanged from Admission Objective Active Medications: Acetaminophen (Tylenol Tab*) 650 mg PO Q4H PRN PRN Reason: pain/fever Last Admin: 04/20/18 08:27 Dose: 650 mg Aspirin (Aspirin Ec Tab*) 81 mg PO DAILY [facility] Last Admin: 04/20/18 08:27 Dose: 81 mg Atorvastatin Calcium (Lipitor*) 40 mg PO 1700 [facility] Last Admin: 04/19/18 16:10 Dose: 40 mg Dextrose (D50w Syringe 50 Ml*) 12.5 gm IV PUSH .FOR FS < 60 - SS PRN PRN Reason: FS < 60 Famotidine (Pepcid Tab*) 20 mg PO DAILY [facility] Last Admin: 04/20/18 08:27 Dose: 20 mg Fluticasone Propionate (Flonase Nasal [place] 50mcg*) 2 spray BOTH NARES DAILY [facility] Last Admin: 04/20/18 08:27 Dose: 2 spray Gabapentin (Neurontin Cap(*)) 600 mg PO BEDTIME [facility] Last Admin: 04/19/18 20:29 Dose: 600 mg Gabapentin (Neurontin Cap(*)) 300 mg PO QAM [facility] Last Admin: 04/20/18 08:27 Dose: 300 mg Heparin Sodium (Porcine) (Heparin Vial(*)) 5,000 units SUBCUT Q8HR [facility] Last Admin: 04/20/18 05:27 Dose: 5,000 units Ceftriaxone Sodium 1 gm/ (Sodium Chloride) 50 mls @ 200 mls/hr IVPB Q24H [facility] Last Admin: 04/20/18 00:18 Dose: 200 mls/hr Lactated Ringer's (Lactated Ringers 1000 Ml Bag*) 1,000 mls @ 75 mls/hr IV PER RATE [facility] Last Admin: 04/20/18 00:45 Dose: 75 mls/hr Insulin Human Lispro (Humalog*) 0 units SUBCUT ACHS [facility]; Protocol Last Admin: 04/20/18 08:27 Dose: 1 unit Melatonin (Melatonin) 6 mg PO BEDTIME [facility] Last Admin: 04/19/18 20:28 Dose: 6 mg Metoprolol Succinate (Toprol Xl Tab*) 25 mg PO DAILY [facility] Last Admin: 04/20/18 08:26 Dose: 25 mg Mometasone Furoate/Formoterol Fumar (Dulera 200/5 Mdi*) 2 puff INH BID [facility]; Protocol Last Admin: 04/20/18 07:53 Dose: 2 puff Montelukast Sodium (Singulair Tab*) 10 mg PO DAILY [facility] Last Admin: 04/20/18 08:27 Dose: 10 mg Nitroglycerin (Nitroglycerin Tab 0.4 Mg*) 0.4 mg SL Q5M PRN PRN Reason: chest pain Vital Signs - 8 hr 04/20/18 04/20/18 04/20/18 03:32 07:49 07:50 Temperature 97.8 F 98.7 F Pulse Rate 76 71 Respiratory 16 16 16 Rate Blood Pressure 131/67 121/74 (mmHg) O2 Sat by Pulse 94 94 Oximetry 04/20/18 08:27 Temperature Pulse Rate Respiratory 16 Rate Blood Pressure (mmHg) O2 Sat by Pulse Oximetry Oxygen Devices in Use Now: None Appearance: 72 yo male A+Ox3 in NAD. Eyes: No Scleral Icterus, PERRLA Ears/Nose/Mouth/Throat: Mucous Membranes Moist Neck: NL Appearance and Movements; NL JVP Respiratory: Symmetrical Chest Expansion and Respiratory Effort, Clear to Auscultation Cardiovascular: NL Sounds; No Murmurs; No JVD, RRR Abdominal: NL Sounds; No Tenderness; No Distention, - - round Extremities: - - left foot 5th metarsal lateral foot - appears to be a blister that opened; mild serosang drainage noted when dressing removed, appears boggy, no abscess noted. No drainage from area noted with gentle palpation, no foul odor. No erythema Neurological: Alert and Oriented x 3 Lines/Tubes/Other Access: Clean, Dry and Intact Peripheral IV Nutrition: Taking PO's Result Diagrams: 04/19/18 05:20 04/19/18 05:20 Microbiology and Other Data: Microbiology 04/15/18 18:12 Urine Culture - Preliminary Urine Citrobacter Freundii Assess/Plan/Problems-Billing Mr Carlton is a 72yo M with a PMHx of type 2 DM with diabetic neuropathy and nephropathy (with CKD stage 3), CAD s/p stents 2012, prostate CA with urostomy, recurrent LE DVTs, 17 foot surgeries on left foot who presented to ED with c/o gait abnormality and encephalopathy, admitted for possible CVA, and now found to have LLE cellulitis thought to have had metabolic encephalopathy which has now resolved. ID and Ortho following - Patient Problems (1) Cellulitis Comment: Sepsis resolved, cellulitis improving. Pt developed sepsis likely streptococcal cellulitis of the L ankle/foot. Redness and swelling resolved. maybe caused by blister on the lateral aspect of the foot? Does not appear to be an abscess. Concern with pt's hx of 17 surgeries on his left foot - Ortho consulted - recommended foot xray which was obtained last night - showing no osteo. Plan for MRI saturday - and f/u by Ortho alternative financing specialist Dr. Hurt. CRP trending down Appreciate ID consult - Will defer to ID for abx course. suspects urine micro is colonization Blood cx negative Continue ceftriaxone Obtain surgical records from [place] (2) Gait abnormality Comment: Resolved. Likely secondary to infection as once the infection was treated his gait instability improved. No evidence of CVA as cause. Appreciate Neuro consult who agrees MRI Brain negative for acute intacranial process Continue ASA and statin. (3) B12 deficiency Comment: Pt reports a history of mild cognition issues (forgetting words, stopping talking in mid conversation) for a little while. ? secondary to B12 deficiency. Pt will be giving himself B12 injections weekly for 1 month then monthly thereafter. The B12 deficiency may also contribute to his neuropathy. (4) CAD (coronary artery disease) Comment: Stable and without complaints of chest pain. Continue aspirin, metoprolol and statin. (5) CKD (chronic kidney disease) stage 3, GFR 30-59 ml/min Comment: Pt with likely stage III CKD secondary to diabetic nephropathy. Creatinine continues to trend down today as infection has likely improved. Continue to monitor renal function. (6) History of urostomy Comment: Urine culture growing citrobacter but likely colonization given pt's urostomy. (7) Diabetes mellitus type 2 Comment: Fairly good control. Metformin is on hold and it is questionable if it should be restarted on discharge as his creatinine was >1.5 on admisison. Continue lispro sliding scale for now. (8) DVT prophylaxis Comment: SQ heparin (9) Full code status Status and Disposition: .inpatient. plan for DC to home when medically stable
[2018-04-20 13:40] LABS: ABS Basophils 0.1 10^3/ul (0-0.2); ABS Eosinophils 0.5 10^3/ul (0-0.6); ABS Lymphocytes 1.6 10^3/ul (1.0-4.8); ABS Monocytes 0.9 10^3/ul (0-0.8); ABS Neutrophils 5.2 10^3/ul (1.5-7.7); ABS Nucleated RBC 0 10^3/ul; Hematocrit 35 % (42-52); Hemoglobin 11.7 g/dl (14.0-18.0); Lymphocyte % 19.8 %; Mean Corpuscular HGB Conc 33 g/dl (31-36); Mean Corpuscular Hemoglobin 31 pg (27-31); Mean Corpuscular Volume 93 fL (80-94); Mean Platelet Volume 7.6 fL (7.4-10.4); Nucleated Red Blood Cells % 0; Platelet Count 282 10^3/ul (150-450); Red Cell Distribution Width 13 % (10.5-15); White Blood Count 8.3 10^3/ul (3.5-10.8)
[2018-04-20 13:59] LABS: BUN/Creatinine Ratio 15.8 (8-20); Calcium 9.6 mg/dL (8.6-10.3); EGFR Non-African American 50.4 (>60); Potassium 4.5 mmol/L (3.5-5.0)
[2018-04-20] MEDS: Atorvastatin* 40 MG TAB PO SCH (17:22)
[2018-04-20] MEDS: Melatonin 3 MG TAB PO SCH (20:57)
[2018-04-21] MEDS: cefTRIAXone(*) 1 GM in NS 0.9% 50 ML* 50 ML IVPB SCH (00:38)
[2018-04-21] MEDS: Heparin VIAL(*) 5000 UNITS/ML VIAL (FIVE THOUSAND) SUBCUT SCH ×2 (05:37→13:48)
[2018-04-21 06:18] LABS: ABS Basophils 0 10^3/ul (0-0.2); ABS Eosinophils 0.4 10^3/ul (0-0.6); ABS Lymphocytes 1.7 10^3/ul (1.0-4.8); ABS Monocytes 0.8 10^3/ul (0-0.8); ABS Neutrophils 4.5 10^3/ul (1.5-7.7); ABS Nucleated RBC 0 10^3/ul; Eosinophil % 5.5 %; Hematocrit 34 % (42-52); Hemoglobin 11.4 g/dl (14.0-18.0); Lymphocyte % 22.4 %; Mean Corpuscular HGB Conc 33 g/dl (31-36); Mean Corpuscular Hemoglobin 31 pg (27-31); Mean Corpuscular Volume 93 fL (80-94); Mean Platelet Volume 7.5 fL (7.4-10.4); Nucleated Red Blood Cells % 0.1; Platelet Count 275 10^3/ul (150-450); Red Blood Count 3.68 10^6/ul (4.00-5.40); Red Cell Distribution Width 13 % (10.5-15); White Blood Count 7.4 10^3/ul (3.5-10.8)
[2018-04-21 06:45] LABS: Calcium 8.8 mg/dL (8.6-10.3); EGFR African American 59.5 (>60); EGFR Non-African American 49.1 (>60); Potassium 4.2 mmol/L (3.5-5.0)
[2018-04-21] MEDS: Acetaminophen TAB* 325 MG PO PRN (08:18)
[2018-04-21] MEDS: Montelukast Sodium TAB* 10 MG PO SCH (08:18)
[2018-04-21] MEDS: Metoprolol Succinate XL TAB* 25 MG PO SCH (08:19)
[2018-04-21] MEDS: Insulin LISPRO* 1 UNITS UNIT SUBCUT SCH ×2 (08:19→12:22)
[2018-04-21] MEDS: Gabapentin CAP(*) 300 MG PO SCH (08:19)
[2018-04-21] MEDS: Famotidine TAB* 20 MG PO SCH (08:19)
[2018-04-21] MEDS: Aspirin EC TAB* 81 MG TAB.EC PO SCH (08:19)
[2018-04-21] MEDS: Fluticasone NASAL SPRAY 50MCG* 16 gm SPRAY BTL BOTH NARES SCH (08:23)
[2018-04-21] MEDS: Mometasone/Formoter 200/5 MDI INH SCH (08:41)
--- NOTE | 2018-04-21 09:42 | PN ---
Progress Note - Progress Note Date of Service: 04/21/18 SOAP: Subjective: CC: cellulitis HPI: 72 year old man with diabetic neuropathy and multiple BL metatarsal osteotomy admitted with left leg cellulitis. Recent callous left plantar forefoot. Ceelulitis resolved, a blister formed on lateral foot over the weekend, also improving. No fever, rash, or diarrhea. Objective: Vital Signs Temp 36.4 C 04/21/18 03:38 Pulse 74 04/21/18 08:43 Resp 16 04/21/18 08:43 BP 118/68 04/21/18 03:38 Pulse Ox 99 04/21/18 08:43 Intake & Output 04/20/18 04/21/18 04/21/18 18:59 06:59 18:59 Intake Total 2386 733 360 Output Total 0 Balance 2386 733 360 Intake: IV Fluids 626 30 ABX - CEFTRIAXONE 30 LR 626 IVPB 63 ABX - CEFTRIAXONE 63 Oral 1760 640 360 Output: Urine 0 Other: Estimated Void Medium # Bowel Movements 0 # Voids 2 2 Gen:awake, no distress HEENT: no thrush Heart:RRR no murmur Lungs:CTA BL Abd:+BS NTND soft Skin: no rash MSK: Left foot trace edema; erythema resolved; lateral forefoot bullae no expressable fluid Laboratory Results - last 24 hr 04/20/18 04/20/18 04/20/18 11:16 13:20 13:20 WBC 8.3 RBC 3.80 L Hgb 11.7 L Hct 35 L MCV 93 MCH 31 MCHC 33 RDW 13 Plt Count 282 MPV 7.6 Neut % (Auto) 62.8 Lymph % (Auto) 19.8 Bertie % (Auto) 10.6 Eos % (Auto) 6.0 Baso % (Auto) 0.8 Absolute Neuts (auto) 5.2 Absolute Lymphs (auto) 1.6 Absolute Monos (auto) 0.9 H Absolute Eos (auto) 0.5 Absolute Basos (auto) 0.1 Absolute Nucleated RBC 0 Nucleated RBC % 0 Sodium 137 Potassium 4.5 Chloride 105 Carbon Dioxide 27 Anion Gap 5 BUN 22 Creatinine 1.39 H Est GFR ( Amer) 61.0 Est GFR (Non-Af Amer) 50.4 BUN/Creatinine Ratio 15.8 Glucose 200 H POC Glucose (mg/dL) 141 H Calcium 9.6 04/20/18 04/20/18 04/21/18 17:01 20:54 05:51 WBC 7.4 RBC 3.68 L Hgb 11.4 L Hct 34 L MCV 93 MCH 31 MCHC 33 RDW 13 Plt Count 275 MPV 7.5 Neut % (Auto) 60.1 Lymph % (Auto) 22.4 Bertie % (Auto) 11.5 Eos % (Auto) 5.5 Baso % (Auto) 0.5 Absolute Neuts (auto) 4.5 Absolute Lymphs (auto) 1.7 Absolute Monos (auto) 0.8 Absolute Eos (auto) 0.4 Absolute Basos (auto) 0 Absolute Nucleated RBC 0 Nucleated RBC % 0.1 Sodium Potassium Chloride Carbon Dioxide Anion Gap BUN Creatinine Est GFR ( Amer) Est GFR (Non-Af Amer) BUN/Creatinine Ratio Glucose POC Glucose (mg/dL) 165 H 176 H Calcium 04/21/18 04/21/18 05:51 07:10 WBC RBC Hgb Hct MCV MCH MCHC RDW Plt Count MPV Neut % (Auto) Lymph % (Auto) Bertie % (Auto) Eos % (Auto) Baso % (Auto) Absolute Neuts (auto) Absolute Lymphs (auto) Absolute Monos (auto) Absolute Eos (auto) Absolute Basos (auto) Absolute Nucleated RBC Nucleated RBC % Sodium 141 Potassium 4.2 Chloride 108 Carbon Dioxide 26 Anion Gap 7 BUN 27 H Creatinine 1.42 H Est GFR ( Amer) 59.5 Est GFR (Non-Af Amer) 49.1 BUN/Creatinine Ratio 19.0 Glucose 132 H POC Glucose (mg/dL) 149 H Calcium 8.8 Assessment: 1. left leg cellulitis, resolved 2. left foot non pressure ulcer could be due to recent paring of callous vs bullae from cellulitis vs deeper underlying infection 3. diabetes with neuropathy Plan: 1. continue ceftriaxone, MRI today; wound care
[2018-04-21 14:08] VITALS: BP 134/72
--- NOTE | 2018-04-21 20:19 | CONS ---
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 He has had multiple ulcers and foot procedures before for his diabetic neuropathy, but recently he has ulceration around his left fifth metatarsal head. This was quite cellulitic at the time of his admission, but has improved with some intravenous antibiotics. He has had a coincidental workup for stroke and arrhythmia and this workup to my knowledge has been negative. He does have neuropathy and has been consulted also by neurology this admission. PHYSICAL EXAM: Jus has a superficial ulcer, left lateral fifth metatarsal area near the MTP joint, but it does not probe to bone. It is more just a maceration of the soft tissues with some overlying blistering. I have debrided this with a 15 blade and applied Betadine dressing which is what I would recommend daily. He is also on a course of oral antibiotics to be discharged. DIAGNOSTIC STUDIES/LAB DATA: His MRI did not show osteomyelitis of that area. There is also no fluid collection. PLAN/RECOMMENDATIONS: I have recommended that Jus use his diabetic shoe with a daily dressing change and follow up either with myself or his primary care foot doctor within 5 to 7 days' time. [id number]/[facility] #: [id number] SAMANTHA
--- NOTE | 2018-04-21 23:21 | DS ---
CC: Dr. Prabha Washington; Dr. Terrance Kimbrough * DISCHARGE SUMMARY: DATE OF ADMISSION: 04/15/18 DATE OF DISCHARGE: 04/21/18 PRIMARY CARE PROVIDER: Dr. Prabha Washington. ATTENDING PHYSICIAN: Dr. Ada Santos * (dictated by Juliana Tirado NP). PRIMARY DIAGNOSES: 1. Left foot cellulitis. 2. Gait abnormality. 3. Vitamin B12 deficiency. 4. Sepsis. SECONDARY DIAGNOSES: 1. Coronary artery disease. 2. Chronic kidney disease stage 3. 3. Diabetes mellitus type 2. 4. Presence of urostomy. STUDIES WHILE IN THE HOSPITAL: 1. EKG on 04/15/18 shows normal sinus rhythm with a rate of 70, QTc 406. No acute changes. 2. Head CTA on 04/15/18 reads as: no internal carotid artery stenosis by NASCET criteria. No aneurysm, vascular malformation, occlusion, or stenosis of the visualized intracranial circulation. 3. Transthoracic echocardiogram on 04/16/18 reads as: mild concentric left ventricular hypertrophy is observed. Left ventricular systolic function is at the lower limits of normal, base of the inferior wall relatively hypokinetic. The estimated ejection fraction is 50% to 55%. The left ventricular diastolic filling pattern is consistent with pseudonormalization. The right ventricle has mild RVH and systolic function is normal. Interatrial septum appears intact without evidence of shunting. There is trace aortic regurgitation with mild sclerosis. There is trace mitral regurgitation. There is trace tricuspid regurgitation. Compared with the prior echo of 04/09/13, prior EF was 45% to 50% , inferior wall motion abnormality seen previously. 4. Left lower extremity venous Doppler study on 04/16/18 reads as: no evidence of deep vein thrombosis is identified. 5. Brain MRI on 04/16/18 reads as: age-appropriate atrophy. No restriction of diffusion is noted. No intracranial lesion is identified. Nonspecific FLAIR hyperintensities in the centrum semiovale bilaterally. Likely gliosis is noted in the marisol. 6. Abdomen and pelvis CT on 04/16/18 reads as: no acute intraabdominal finding. 7. Left foot x-ray on 04/19/18 reads as: all 5 left metatarsals have either undergone osteo or pathologic resorption. Please correlate to details of the patient's surgical history. In the absence of surgery, differential diagnosis includes metabolic disorders, inflammatory arthritides, or complications of diabetes. There is no focal cortical destruction characteristic of osteomyelitis. 8. Left foot MRI on 04/21/18 read as: no evidence for osteomyelitis. Suggestion of a shallow soft tissue ulcer at the lateral margin of the fifth toe. There is subcutaneous edema and edema throughout the intrinsic skeletal musculature of the foot, most prominent at the lateral forefoot without evidence for a loculated soft tissue plain abscess collection. CONSULTATIONS WHILE IN THE HOSPITAL: 1. The patient was seen in consultation by Dr. Weller from neurology on for weakness and gait abnormality. 2. The patient was seen in consultation by Dr. Kimbrough from infectious disease on 04/17/18 for sepsis and cellulitis. 3. The patient was seen in consultation by Dr. Hernandez from orthopedics on 04/19 for left foot infection. HISTORY OF PRESENT ILLNESS AND HOSPITAL COURSE: Mr. Carlton is a 72-year- old male with past medical history of type 2 diabetes, coronary artery disease with presence of stents, diabetic neuropathy, and CKD who presented to the emergency room on 04/15/18 with a chief complaint of difficulty walking. Please see the history and physical by Dr. Cole for a complete summary of the events leading up to this hospitalization. In short, the patient had been in his usual state of health. He suddenly awoke in the morning and felt as though he had little control over his legs. He was able to ambulate in his house, but he was not feeling right and presented to the emergency room. He does have significant diabetic neuropathy with bilateral numbness from the knees down. He also reported some confusion and difficulty finding words. He had no focal neurological deficits, except for the notable neuropathy. There was a concern for CVA due to his symptoms and so he was admitted by the hospitalist service. The patient had imaging as noted above. He was seen in consultation by Dr. Weller from neurology, who felt as though this did not represent a CVA, but rather a probable metabolic encephalopathy secondary to infection. He had no further neurological concerns. He did note that the patient was vitamin B12 deficient with a B12 level of 175 and he recommended intramuscular B12 once weekly for 1 month and then monthly thereafter. On 04/16/18, the patient was noted to meet sepsis criteria with fever and tachypnea; qSOFA score was 1 ( tachypnea). Source was determined to be left lower extremity cellulitis, likely streptococcal. The patient was started on ceftriaxone. He was then seen in consultation by Dr. Kimbrough from infectious disease, who recommended continuing ceftriaxone and obtaining further imaging of the foot. I will note that the patient's urine culture on 04/15/18 was noted to be positive for Citrobacter freundii with a colony count of greater than 100,000, although Dr. Kimbrough felt as though that was likely a contaminant and did not represent a urinary tract infection. The patient's gait abnormality resolved and it was determined that his gait abnormality was secondary to toxic metabolic encephalopathy from infection and an abnormal gait secondary to the infection on the left foot. He was seen by Dr. Hernandez from orthopedics, who recommended x -ray and MRI of the left foot to rule out osteomyelitis. As of today, the patient reports feeling well. He is able to ambulate appropriately. He reports his neuropathy is at his baseline. He is no longer displaying any signs of sepsis. Vital signs have been stable. He had an MRI of the left foot today, which was unremarkable for osteomyelitis. I spoke with Dr. Kimbrough, who advised that in the absence of osteomyelitis, the patient could be safely discharged today on a 5-day course of Keflex. At this point, there is what appears to be a ruptured blister to the left lateral foot. There is some purulent drainage and a small amount of erythema surrounding the wound which is much improved from admission. Mr. Carlton is stable for discharge today. Vital signs are as follows: Temp 98.2, heart rate 71, respiratory rate 16, oxygen saturation 97% on room air , blood pressure 134/72. DISCHARGE MEDICATIONS: New Medications: 1. Cephalexin 500 mg p.o. q.i.d. x5 days. 2. Vitamin B12 at 1000 mcg IM weekly for 3 weeks and then monthly thereafter. Continued Medications: 1. Aspirin 81 mg p.o. daily. 2. Dulera MDI 200/5 two puffs b.i.d. 3. Famotidine 20 mg p.o. b.i.d. 4. Fluticasone nasal spray 2 sprays both nares daily. 5. Gabapentin 600 mg p.o. at bedtime. 6. Gabapentin 300 mg p.o. q.a.m. 7. Metoprolol succinate 25 mg p.o. daily. 8. Singulair 10 mg p.o. daily. 9. Nitroglycerin 0.4 mg sublingual q.5 minutes p.r.n. chest pain. 10. Glipizide 2.5 mg p.o. daily. 11. Lisinopril 5 mg p.o. daily. 12. Melatonin 5 mg p.o. at bedtime. 13. Metformin 1000 mg p.o. b.i.d. 14. Multivitamin 1 tab p.o. daily. 15. Modoc-3 at 1000 mg p.o. at bedtime. 16. Pravastatin 40 mg p.o. daily. 17. Probiotic 1 tab p.o. daily. DISCHARGE PLAN: Mr. Carlton will be discharged home. Activity will be as tolerated. He has been advised to wear loose-fitting shoes as to not put additional pressure on the left lateral foot wound. Diet should be heart- healthy, diabetic. Medications are noted above. The patient should complete a 5-day course of cephalexin per Infectious Disease recommendations. He has also been provided with a prescription for vitamin B12 IM, which he should take weekly for 3 weeks. He has been prescribed appropriate needles to administer this and has been given instructions by myself on intramuscular injections. He feels comfortable performing these at home. The patient can continue his other usual medications. I will note that at this point his adjusted creatinine clearance is 57 and his GFR is 49. He does not require renal dosing on his metformin at this point, though he may need renal dosing in the near future. I have advised him that he should follow up with a PCP to determine if further dose adjustments need to be made. He should also have his vitamin B12 rechecked after he has completed his 3 weeks of IM injections. I have advised him to follow up in 4 to 7 days. He reports that he does not currently have a primary care provider as it sounds as though he is no longer using his primary care provider in [place], though he does have a youth program director in the area that he felt he could follow up with. I have also advised the patient that he may follow up with Dr. Kimbrough in his office, and Dr. Kimbrough advised me that his office would call the patient to attempt to set up a followup appointment. I advised the patient that he will need to find a new primary care provider as he will need followup with his other medications, and he can follow up with our [facility] if he so chooses. He has been advised to return to the emergency room or nearest hospital for any worsening of symptoms, shortness of breath, lightheadedness, dizziness, chest discomfort, high fevers, chills, night sweats, loss of consciousness, or any other worrisome signs or symptoms. This is a summarized report of a complex medical history and hospital stay. For further details, please see the entire medical record. TIME SPENT: Approximately 40 minutes were spent on this discharge. JULIANA TIRADO, PO[employer]EL[employer] MACHINE OPERATOR HELPER [id number]/[facility] #: [id number] SAMANTHA
== END 2018-04-21 17:00 | disposition home or self-care (01) | DRG 720 ==
LOC: ED 13:27 → MEDTELE 17:22 → OBSVTOIN 04-16 15:21
PROVIDERS: ADMIT Internal Medicine; ATTEND Internal Medicine
DX: A41.9 Sepsis, unspecified organism (principal); G92 Toxic encephalopathy; L03.116 Cellulitis of left lower limb; I25.10 Atherosclerotic heart disease of native coronary artery without angina pectoris; I73.9 Peripheral vascular disease, unspecified; M19.90 Unspecified osteoarthritis, unspecified site; R29.703 NIHSS score 3; E78.5 Hyperlipidemia, unspecified; G89.29 Other chronic pain; M25.552 Pain in left hip; E11.22 Type 2 diabetes mellitus with diabetic chronic kidney disease; E11.40 Type 2 diabetes mellitus with diabetic neuropathy, unspecified; N18.3 Chronic kidney disease, stage 3 (moderate); E11.21 Type 2 diabetes mellitus with diabetic nephropathy; E11.621 Type 2 diabetes mellitus with foot ulcer; L97.529 Non-pressure chronic ulcer of other part of left foot with unspecified severity; E53.8 Deficiency of other specified B group vitamins; I08.3 Combined rheumatic disorders of mitral, aortic and tricuspid valves; E11.51 Type 2 diabetes mellitus with diabetic peripheral angiopathy without gangrene; J45.909 Unspecified asthma, uncomplicated; G47.30 Sleep apnea, unspecified; B95.5 Unspecified streptococcus as the cause of diseases classified elsewhere; I25.2 Old myocardial infarction; Z95.5 Presence of coronary angioplasty implant and graft; Z88.8 Allergy status to other drugs, medicaments and biological substances; Z85.46 Personal history of malignant neoplasm of prostate; Z92.3 Personal history of irradiation; Z86.718 Personal history of other venous thrombosis and embolism; Z72.89 Other problems related to lifestyle; Z87.01 Personal history of pneumonia (recurrent); Z91.040 Latex allergy status; Z90.79 Acquired absence of other genital organ(s); Z79.82 Long term (current) use of aspirin; Z79.84 Long term (current) use of oral hypoglycemic drugs
CPT/HCPCS: 36415; 70496; 70498; 70551; 74176; 80048; 80053; 80061; 81003; 81015; 82140; 82607; 83036; 83605; 84443; 84484; 85025; 85610; 86140; 87040; 87077; 87086; 87186; 93005; 93306; 94640; 99285; A9270-GY; G8978-GP-CI; G8979-GP-CI; G8980-GP-CI; J0696; J1644; J3420; Q9967

== ENCOUNTER 2018-07-13 21:23 | Inpatient (IN) | payer BC, MEDICARE ==
--- OUTSIDE RECORDS SUMMARY | 2018-07-13 21:52 | XMS REPORT | Continuity of Care Document ---
:1945 External Reference #:[id number] Author Name Garret Mathis M.D. Address [address] [place] [address] Care Team Providers Name Role Phone Prabha Washington M.D. Primary Care Physician Unavailable Payers Date Identification Numbers Payment Provider Subscriber Policy Number: [id number] [employer] [facility] Plan Jus Carlton PayID: [id number] [address] [place] [address] Policy Number: [id number] [employer] Jus L Bianka PayID: [id number] [address] [place] [address] Advance Directives Description No Information Available Problems Date Description Provider Status Onset: Asthma Active Onset: Type 2 diabetes mellitus Active Onset: Heart attack Active Onset: Hypercholesterolemia Active Onset: Lyme disease Active Onset: 05/02/2015 Nuclear senile cataract Garret Mathis M.D. 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 ETOH Use Occasionally consumes alcohol Tobacco Use Start: Unknown Patient has never smoked Recreational Drug Use Denies Drug Use Smoking Status Reviewed: 06/23/18 Patient has never smoked Allergies, Adverse Reactions, Alerts Description No Known Drug Allergies Medications Medication Date Status Form Strength Qnty SIG Indications Ordering Provider Metformin HCL Active Tablets 1000mg Unknown /0000 Lisinopril Active Tablets 2.5mg Stefek, /0000 Wojciech Mcmahan Montelukast Sodium Active Tablets 10mg Law, /0000 Martir Vera Pravastatin Sodium Active Tablets 20mg Unknown /0000 Aspir-Low Active Tablets DR 81mg Unknown /0000 Famotidine Active Solution 20mg/2ML Unknown /0000 Glipizide ER 00 Active Tablets ER 2.5mg Unknown /0000 24HR Zolpidem Tartrate Active Tablets 10mg Unknown /0000 Fluticasone Active Suspension 50mcg/Act Unknown Propionate 0000 Proair HFA Active Aerosol 108(90Bas Unknown /0000 e) mcg/Act Metoprolol Active Tablets ER 50mg Unknown Succinate ER /0000 24HR Metformin HCL Active Tablets 500mg Unknown /0000 Nitroglycerin Active Tablets Sub 0.4mg Steferad, Wojciech Mcmahan Gabapentin Active Capsules 300mg Unknown /0000 Pravastatin Sodium Active Tablets 40mg Merrihew, 0000 Russell Mcmahan Atorvastatin Active Tablets 40mg Mckeon, Calcium /0000 Bonifacio D.O. Aspir-[address] 81mg 1 every Unknown /0000 other day Symbicort 00 Active Aerosol 160-4.5mc Unknown /0000 g/Act Acetaminophen Active Tablets 500mg Unknown /0000 Fish Oil Active Capsules 1000mg 1 by Unknown /0000 mouth every day Multivitamin Men Active Tablets Unknown /0000 Vitamin B-12 Active Tablets 500mcg twice a Unknown Natural / day Amoxicillin Active Capsules 500mg take 1 Unknown /0000 capsule by mouth three times a day Metoprolol Hx Tablets ER 25mg Law, Succinate ER 0000 24HR Muna Vera M.D. 04/29 Nitrostat Hx Tablets Sub 0.4mg Steferad, 0000 Wojciech Mcmahan - 04/29 Tramadol HCL Hx Tablets 50mg [place], 0000 Muna Chávez M.D. 04/29 Xopenex Hx Nebulizer 0.31mg/3M Unknown /0000 L - 04/29 Levofloxacin 00 Hx Tablets 500mg Unknown /0000 - 04/29 Prednisone 00/00 Hx Tablets 20mg Unknown / - 04/29 Amoxicillin/Clavula 00 Hx Tablets 875-125mg Unknown corey Potassium / - 04/29 Doxycycline Hyclate Hx Capsules 100mg Unknown /04/29 Gabapentin Hx Capsules 300mg Unknown /04/29 Ipratropium [place] Hx Solution 0.03% Unknown 04/29 Levofloxacin Hx Tablets 250mg Unknown / - 04/29 Tamiflu Hx Capsules 75mg Unknown / - 04/29 Cefuroxime Axetil Hx Tablets 500mg Unknown / - 04/29 Promethazine-Codein Hx Syrup 6.25-10mg Unknown e - 04/29 Ciprofloxacin HCL Hx Tablets 500mg Unknown /04/29 Methylprednisolone Hx TBPK 4mg Unknown 04/29 Immunizations Description No Information Available Vital Signs Description No Information Available Results Description No Information Available Procedures Date Code Description Status 05/02/2017 85465 Determination Of Refractive State Completed 05/02/2017 25194 Est Patient Comprehensive Exam Completed 04/30/2016 60201 Est Patient Comprehensive Exam Completed 05/02/2015 82019 Est Patient Comprehensive Exam Completed 04/30/2014 39012 Est Patient Comprehensive Exam Completed 04/30/2013 65014 Est Patient Comprehensive Exam Completed 04/29/2012 99026 Est Patient Comprehensive Exam Completed 05/01/2011 55989 Scanning Computerized Opthalmic Diagnostic Posterior Seg Completed Retina 05/01/2011 94950 Est Patient Comprehensive Exam Completed 02/28/2010 81038 Est Patient Comprehensive Exam Completed 02/28/2010 59157 Determination Of Refractive State Completed 03/31/2009 17471 Est Patient Comprehensive Exam Completed 04/01/2008 81815 Est Patient Comprehensive Exam Completed 01/31/2007 30490 Determination Of Refractive State Completed 01/31/2007 51106 Est Patient Comprehensive Exam Completed 04/25/2004 85307 Fundus Photography With Interpretation And Report Completed 04/25/2004 15929 Determination Of Refractive State Completed 04/25/2004 82260 New Patient Comprehensive Exam Completed 04/04/2004 36398 Cancelled Appointment Completed Encounters Description No Information Available Plan of Treatment 06/23/2018 - Garret Mathis M.D.E11.9 Type 2 diabetes mellitus without complicationsComments:Smoking can increase the risk of developing or worsening any eye related disease, as well as affect your overall health. If you are a smoker, we strongly recommend that you quit.If you are not a smoker, we strongly recommend that you do not start. You have diabetes. I do not detect any changes in both of your retinas from diabetes at this time. Proper control of your diabetes is important for the health of your eyes. Changes in your eyes from diabetes can happen without symptoms, so it is important that you have your eyes examined. Dr. Mathis has sent a report to your primary care doctor , lettingthem know there is no damage from the Diabetes in your eyes.H25.13 Age- related nuclear cataract, bilateralComments:You have been diagnosed with cataracts. If you are happy with your vision as it is now, then we willsee you at your next scheduled appointment. If you feel like your vision is getting worse before your scheduled appointment, please call Linette Marquez at [phone].
[2018-07-13 23:12] LABS: Hematocrit 35 % (36-46); Hemoglobin 11.6 g/dL (14.0-18.0); Mean Corpuscular HGB Conc 33 g/dL (31-36); Mean Corpuscular Hemoglobin 30 pg (27-31); Mean Corpuscular Volume 91 fL (80-94); Mean Platelet Volume 7.9 fL (7.4-10.4); Platelet Count 248 10^3/uL (150-450); Red Blood Count 3.86 10^6 /uL (4.18-5.48); Red Cell Distribution Width 13 % (10.5-15); White Blood Count 12.5 10^3/uL (3.5-10.8)
[2018-07-13 23:39] LABS: Albumin 4.2 g/dL (3.2-5.2); Albumin/Globulin Ratio 1.4 (1-3); BUN/Creatinine Ratio 28.1 (8-20); Calcium 9.3 mg/dL (8.6-10.3); EGFR African American 54.4 (>60); Globulin 3.1 g/dL (2-4); Potassium 4.3 mmol/L (3.5-5.0); Total Bilirubin 0.3 mg/dL (0.2-1.0); Total Protein 7.3 g/dL (6.4-8.9)
[2018-07-14] MEDS ORDERED: NS 0.9% 1000 ML** 2,000 ML IV ONE (00:24)
[2018-07-14] MEDS ORDERED: Vancomycin(*) 1,000 MG in NS 0.9% 250 ML* 250 ML IVPB ONE (00:24)
[2018-07-14] MEDS ORDERED: Piperacillin/Tazobac ADVAN(*) 3.375 GM in NS 0.9% 100 ML* 100 ML IVPB ONE (00:24)
--- NOTE | 2018-07-14 00:25 | ED ---
Lower Extremity - HPI Summary HPI Summary: Pt is a 73 y/o M presenting to the ED with a chief complaint of left lower leg pain. He reports erythema, edema, and associated fever onset since the beginning of the year. Hes been treated for cellulitis in the past and has had to have many procedures on his L foot due to diabetic neuropathy and infections. The pt denies nausea and vomiting or any recent issues with his blood sugar. - History of Current Complaint Chief Complaint: EDRashSkinAbscess Stated Complaint: POSS CELLULITIS IN LEFT LEG/FEVER Time Seen by Provider: 07/14/18 00:01 Hx Obtained From: Patient Mechanism Of Injury: Other - infection Onset/Duration: Still Present Severity Initially: Moderate Severity Currently: Moderate Pain Intensity: 7 Pain Scale Used: 0-10 Numeric Timing: Constant, Lasting Weeks Location: Is Discrete @ - L calf Character Of Pain: Burning Associated Signs And Symptoms: Positive: Swelling, Redness, Fever Aggravating Factor(s): Standing, Ambulation, Movement, Weight Bearing, Stairs Alleviating Factor(s): Rest Able to Bear Weight: Yes Related History: Other - diabetes - Allergies/Home Medications Allergies/Adverse Reactions: Allergies Allergy/AdvReac Type Severity Reaction Status Date / Time Adhesive Tape [Silk Tape] Allergy Unknown Verified 03/09/17 18:33 Reaction Details latex Allergy Swelling Verified 04/15/18 14:17 PMH/Surg Hx/FS Hx/Imm Hx Previously Healthy: No Endocrine/Hematology History: Reports: Hx Anticoagulant Therapy, Hx Diabetes Denies: Hx Sickle Cell Disease, Hx Thyroid Disease, Hx Anemia, Hx Unexplained Bleeding Cardiovascular History: Reports: Hx Cardiomegaly, Hx Coronary Artery Disease, Hx Deep Vein Thrombosis, Hx Hypercholesterolemia, Hx Myocardial Infarction, Hx Peripheral Vascular Disease, Other Cardiovascular Problems/Disorders - BLOOD CLOTS TO LEGS X2 Denies: Hx Aneurysm, Hx Angina, Hx Angioplasty, Hx Auto Implanted Cardiovert Defib, Hx Cardiac Arrest, Hx Congenital Heart Disease, Hx Congestive Heart Failure, Hx Embolism, Hx Hypotension, Hx Hypertension, Hx Pacemaker/ICD, Hx Rheumatic Fever, Hx Syncope, Hx Valvular Heart Disease Respiratory History: Reports: Hx Asthma, Hx Chronic Bronchitis, Hx Pneumonia, Hx Sleep Apnea, Other Respiratory Problems/Disorders - FREQUENT PNEUMONIA Denies: Hx Pulmonary Embolism, Hx Seasonal Allergies GI History: Reports: Other GI Disorders - 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 Denies: Hx Cirrhosis, Hx Crohn's Disease, Hx Diverticulosis, Hx Gall Bladder Disease, Hx Gastroesophageal Reflux Disease, Hx Gastrointestinal Bleed, Hx Hiatal Hernia, Hx Irritable Bowel, Hx Jaundice, Hx Obstructive Bowel, Hx Ileostomy, Hx Pyloric Stenosis, Hx Ulcer History: Reports: Other Problems/Disorders - Continent urinary diversion at [facility] Denies: Hx Acute Renal Failure, Hx Benign Prostatic Hyperplasia, Hx Chronic Renal Failure, Hx Dialysis, Hx Kidney Infection, Hx Kidney Stones Musculoskeletal History: Reports: Hx Arthritis, Hx Back Problems, Hx Bursitis - KNEE, Other Musculoskeletal History - osteomyleitis Denies: Hx Gout, Hx Osteoporosis, Hx Scoliosis Sensory History: Reports: Hx Contacts or Glasses - reading Denies: Hx Hearing Aid Opthamlomology History: Reports: Hx Contacts or Glasses - reading Neurological History: Reports: Hx Nerve Disease - diabetic neuropathy to LE Denies: Hx Seizures, Hx Spinal Cord Injury, Hx Transient Ischemic Attacks ( TIA) Psychiatric History: Denies: Hx Panic Disorder - Cancer History Cancer Type, Location and Year: prostate cancer Hx Chemotherapy: No Hx Radiation Therapy: Yes - Proton Radiation Hx Palliative Cancer Treatment: No - Surgical History Surgery Procedure, Year, and Place: appendix, tonsils, prostatectomy, urinary incontinence diversion 2002, rt foot x9, left foot x5, hernia repair,cardiac stent 04/08/13 pt has stent card please make copy for mri scan. urostomy Hx Anesthesia Reactions: No - Immunization History Date of Influenza Vaccine: 11/2016 Infectious Disease History: No Infectious Disease History: Denies: Hx Clostridium Difficile, Hx Hepatitis, Hx Human Immunodeficiency Virus (HIV), Hx of Known/Suspected MRSA, Hx Shingles, Hx Tuberculosis, Hx Known/ Suspected VRE, Hx Known/Suspected VRSA, History Other Infectious Disease, Traveled Outside the [place] in Last 30 Days - Family History Known Family History: Positive: Other - neg: anaesthesia reaction - Social History Alcohol Use: Occasionally Alcohol Amount: 1 drink per month Hx Substance Use: No Substance Use Type: Reports: None Hx Tobacco Use: No Smoking Status (MU): Never Smoked Tobacco Have You Smoked in the Last Year: No Review of Systems Positive: Fever Negative: Vomiting, Nausea Positive: Myalgia, Edema Positive: Other - erythema of L calf All Other Systems Reviewed And Are Negative: Yes Physical Exam - Summary Physical Exam Summary: VITAL SIGNS: Reviewed. GENERAL: Patient is a well-developed and nourished male who is lying comfortable in the stretcher. Patient is not in any acute respiratory distress. HEAD AND FACE: No signs of trauma. No ecchymosis, hematomas or skull depressions. No sinus tenderness. EYES: PERRLA, EOMI x 2, No injected conjunctiva, no nystagmus. EARS: Hearing grossly intact. Ear canals and tympanic membranes are within normal limits. MOUTH: Oropharynx within normal limits. NECK: Supple, trachea is midline, no adenopathy, no JVD, no carotid bruit, no c- spine tenderness, neck with full ROM. CHEST: Symmetric, no tenderness at palpation LUNGS: Clear to auscultation bilaterally. No wheezing or crackles. CVS: Regular rate and rhythm, S1 and S2 present, no murmurs or gallops appreciated. ABDOMEN: Soft, non-tender. No signs of distention. No rebound no guarding, and no masses palpated. Bowel sounds are normal. EXTREMITIES: L leg has edema, erythema, and tenderness to palpation. There is also approx. a 2cm ulcer in the sole of the L foot with dry gangrene and associated edema and erythema. NEURO: Alert and oriented x 3. No acute neurological deficits. Speech is normal and follows commands. SKIN: Dry and warm Triage Information Reviewed: Yes Vital Signs On Initial Exam: Initial Vitals Temp Pulse Resp BP Pulse Ox 97.8 F 72 18 153/79 97 07/13/18 21:30 07/13/18 21:30 07/13/18 21:30 07/13/18 21:30 07/13/18 21:30 Vital Signs Reviewed: Yes Diagnostics - Vital Signs Vital Signs Temp Pulse Resp BP Pulse Ox 07/13/18 23:55 98.2 F 73 18 138/72 97 07/13/18 21:30 97.8 F 72 18 153/79 97 - Laboratory Lab Results: Lab Results 07/13/18 07/13/18 07/13/18 Range/Units 22:57 22:57 22:57 WBC 12.5 H (3.5-10.8) 10^3/uL RBC 3.86 L (4.18-5.48) 10^6 /uL Hgb 11.6 L (14.0-18.0) g/dL Hct 35 L (36-46) % MCV 91 (80-94) fL MCH 30 (27-31) pg MCHC 33 (31-36) g/dL RDW 13 (10.5-15) % Plt Count 248 (150-450) 10^3/uL MPV 7.9 (7.4-10.4) fL Sodium 140 (135-145) mmol/L Potassium 4.3 (3.5-5.0) mmol/L Chloride 112 H (101-111) mmol/L Carbon Dioxide 21 L (22-32) mmol/L Anion Gap 7 (2-11) mmol/L BUN 43 H (6-24) mg/dL Creatinine 1.53 H (0.67-1.17) mg/dL Est GFR ( Amer) 54.4 (>60) Est GFR (Non-Af Amer) 45.0 (>60) BUN/Creatinine Ratio 28.1 H (8-20) Glucose 132 H (70-100) mg/dL Lactic Acid 0.7 (0.5-2.0) mmol/L Calcium 9.3 (8.6-10.3) mg/dL Total Bilirubin 0.30 (0.2-1.0) mg/dL AST 14 (13-39) U/L ALT 14 (7-52) U/L Alkaline Phosphatase 67 (34-104) U/L Total Protein 7.3 (6.4-8.9) g/dL Albumin 4.2 (3.2-5.2) g/dL Globulin 3.1 (2-4) g/dL Albumin/Globulin Ratio 1.4 (1-3) Result Diagrams: 07/13/18 22:57 07/13/18 22:57 Lab Statement: Any lab studies that have been ordered have been reviewed, and results considered in the medical decision making process. Lower Extremity Course/Dx - Course Course Of Treatment: Pt is a 73 y/o M presenting to the ED with a chief complaint of left lower leg pain. He reports erythema, edema, and associated fever onset since the beginning of the year. Hes been treated for cellulitis in the past and has had to have many procedures on his L foot due to diabetic neuropathy and infections. The pt will be admitted to [facility] under Dr. Morley with a dx of L leg cellulitis. - Diagnoses Provider Diagnoses: Left leg cellulitis Discharge - Sign-Out/Discharge Documenting (check all that apply): Patient Departure - Discharge Plan Condition: Stable Disposition: ADMITTED TO [facility] Referrals: Prabha Washington MD [Primary Care Provider] - - Attestation Statements Document Initiated by Scribe: Yes Documenting Scribe: Carolyne Samuel Provider For Whom Kenishaibe is Documenting (Include Credential): Rajendra Cullen MD. Scribe Attestation: ICarolyne, scribed for Rajendra Cullen MD. on 07/14/18 at 0105. Status of Scribe Document: Ready
[2018-07-14] MEDS ORDERED: Nitroglycerin TAB 0.4 MG* 0.4 MG TAB SL PRN (02:48)
[2018-07-14] MEDS ORDERED: Dextrose 50% Syringe 50 ML* 25 GM/50 ML SYRINGE IV PUSH PRN (02:51)
[2018-07-14] MEDS ORDERED: Zosyn per Pharmacy* NOTE FOLLOW UP SCH (04:00)
[2018-07-14] MEDS ORDERED: Vancomycin per Pharmacy* NOTE FOLLOW UP SCH (04:00)
[2018-07-14] MEDS ORDERED: Vancomycin(*) 500 MG in NS 0.9% 250 ML* 250 ML IVPB ONE (04:45)
[2018-07-14] MEDS ORDERED: VANCOMYCIN IVPB ONE (04:45)
[2018-07-14] MEDS ORDERED: NS 0.9% IVPB ONE (04:45)
--- NOTE | 2018-07-14 05:44 | HP ---
CC: Prabha Washington M.D. HISTORY AND PHYSICAL: DATE OF ADMISSION: 07/14/18 PRIMARY CARE PHYSICIAN: Prabha Washington M.D. CODE: Full code. HEALTHCARE PROXY: Nayeli, , home phone [phone]. CHIEF COMPLAINT: Fever and left foot wound discharge. HISTORY OF PRESENT ILLNESS: Mr. 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 Three months ago, the patient presented to [facility] with gait abnormality and was thought to have possible metabolic encephalopathy secondary to left lower extremity cellulitis. He was noted to have a ruptured blister on the left lateral foot, but had denied prior history of ulcer on the foot. MRI three months ago was without osteomyelitis, and the patient was discharged with Keflex. The patient reports that the blister he had during admission 3 months ago never healed and he has had a chronic foot ulcer since that time and has been visiting his suspender cutter every 2 weeks. For the last few days, the patient has noted increased drainage from the left foot ulcer. Denies odor, but also has noticed increasing pain over his medial left calf. He has been unable to feel pain in his foot or around the ulcer as he has neuropathy and has no sensation in those areas. He has also noticed increased erythema and edema of his left lower extremity. Today, the patient felt feverish and sweaty and his family member took his temperature, was noted to be 101. So, he decided to come back to the hospital for further care. REVIEW OF SYSTEMS: He denies chills, lightheadedness, chest pain, shortness of breath, abdominal pain, nausea, vomiting, constipation, or diarrhea. The patient denies any recent trauma to his foot. PAST MEDICAL HISTORY: 1. Coronary artery disease, status post stent 2012. 2. Type 2 diabetes, complicated by diabetic neuropathy and nephropathy. 3. CKD, stage 3. 4. Prostate cancer, status post resection with significant urinary incontinence afterwards, now status post urinary continence diversion in 2002 with urostomy and self-catheterization. 5. Multiple bilateral foot surgeries due to hammertoes and high arches with bone removal. 6. Umbilical hernia repair. 7. Appendectomy. 8. Tonsillectomy. 9. History of recurrent lower extremity DVTs, first one unprovoked, second one after prolonged bedrest, now off anticoagulation for many years. MEDICATIONS: 1. Metformin 1 g twice a day. 2. Glipizide 2.5 mg. 3. Aspirin 81 mg daily. 4. Pravastatin 40 mg daily. 5. Nitroglycerin 0.4 sublingual p.r.n. 6. Montelukast 10 mg daily. 7. Symbicort 2 puffs twice a day. 8. Famotidine 20 mg twice a day. 9. Gabapentin 300 mg in the morning, 600 mg at night. 10. Fluticasone intranasal spray daily. 11. Vitamin B12 injections weekly. 12. Lisinopril 2.5 mg daily. 13. Metoprolol succinate 25 mg daily. 14. Hendrix-3 daily. 15. Multivitamin daily. ALLERGIES: ADHESIVE TAPE, LATEX cause rash. 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 Experimented with drugs in college, but has not used any tobacco or other drugs for more than 40 years, rare wine. Lives with . FAMILY HISTORY: noncontributory PHYSICAL EXAMINATION GENERAL: Well-appearing man, reclining in stretcher, conversant and friendly. VITAL SIGNS: Afebrile. Heart rate 60s, blood pressure 130s/60s, respiratory rate 12, O2 saturation 95% on room air. HEENT: Pupils equal, round, reactive to light. NECK: Unable to appreciate JVP given body habitus. CHEST: Clear to auscultation bilaterally. CARDIAC: Regular rate and rhythm. No murmurs, gallops, or rubs. ABDOMEN: Soft, nontender. Urostomy site clean, dry, and intact with clean bandage. EXTREMITIES: Lower extremities: Bilateral lower extremities with lipodermatosclerosis. Right lower extremity with lower half of leigh hyperpigmented. No erythema. Left lower extremity with lower half of leigh with erythema without sharp demarcation. Left leg warmer than right leg. DP pulses 1+ bilaterally, trace edema over left ankle and lower leigh. Left lateral forefoot with 1 cm plantar ulcer with subcutaneous fat exposure and serosanguineous fluid oozing. No pus or exposed bone. Ulcer in L foot with surrounding erythema. Sensation absence in ankles and feet bilaterally. Able to move all toes. DIAGNOSTIC STUDIES AND LABORATORY DATA: White blood cell count 12.5, hemoglobin 11.6 at baseline, platelets normal. Sodium 140, BUN elevated at 43, creatinine 1.53 at baseline, lactic acid negative, hepatic panel unremarkable. No imaging studies or EKG ordered. ASSESSMENT AND PLAN: Mr. 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 1. Chronic foot ulcer with cellulitis complicated by sepsis given fever and white count. We will admit the patient to the hospital for empiric antimicrobial therapy for severe foot infection. We will also need further imaging given concern for osteomyelitis and will start with foot x-ray. If negative, the patient will need to have an MRI likely with ID consult and podiatry consult in the morning as the patient may need debridement. If osteomyelitis is confirmed and biopsy is planned, the patient may need antibiotic holiday. We will continue empiric parenteral antibiotic coverage with vancomycin and Zosyn. 2. Type 2 diabetes, holding home medications and start Lispro sliding scale per fingersticks. 3. Coronary artery disease, no active symptoms. Continue home metoprolol, aspirin, and statin. Continue sublingual nitro p.r.n. 4. Chronic kidney disease, stage 3. Creatinine is at baseline. We will continue to monitor renal function. Avoid nephrotoxic medications. Renally- dose meds. 5. Asthma. Continue home Symbicort, montelukast. 6. Hypertension. Continue home lisinopril. 7. DVT prophylaxis: subq Lovenox. 8. FULL CODE. TIME SPENT: Approximately 60 minutes spent on admission of this patient, more than half of which was spent at bedside for interview and exam. [id number]/[facility] #: [id number] SAMANTHA
[2018-07-14] MEDS: ZOSYN 3.375 GM Q8H per EXTENDED INFUSION IVPB SCH ×6 (05:59→20:44)
[2018-07-14] MEDS: Mometasone/Formoter 200/5 MDI INH SCH ×2 (07:45→19:56)
[2018-07-14 08:53] LABS: BUN/Creatinine Ratio 26.6 (8-20); Calcium 8.7 mg/dL (8.6-10.3); EGFR African American 66.8 (>60); EGFR Non-African American 55.2 (>60); Potassium 4.4 mmol/L (3.5-5.0)
[2018-07-14] MEDS ORDERED: Gabapentin CAP(*) 300 MG PO SCH ×2 (09:00→21:00)
--- NOTE | 2018-07-14 09:00 | PN ---
Subjective Date of Service: 07/14/18 Interval History: Resting in bed on assessment. Patient reports he feels improved this morning as he is no longer feverish. He also reports that LLE feels "less warm". Reports he is "aware" of his left calf as it is mildly tender posteriorly. Denies cp, sob, nausea, vomiting, diarrhea, fever, and chills Objective Active Medications: Aspirin (Aspirin Ec Tab*) 81 mg PO DAILY [facility] Atorvastatin Calcium (Lipitor*) 10 mg PO DAILY [facility] Cyanocobalamin (Vitamin B12 Inj *) 1,000 mcg IM WEEKLY [facility] Dextrose (D50w Syringe 50 Ml*) 12.5 gm IV PUSH .FOR FS < 60 - SS PRN PRN Reason: FS < 60 Enoxaparin Sodium (Lovenox(*)) 40 mg SUBCUT Q24H ANNA Famotidine (Pepcid Tab*) 20 mg PO DAILY [facility] Fluticasone Propionate (Flonase Nasal [place] 50mcg*) 2 spray BOTH NARES DAILY [facility] Gabapentin (Neurontin Cap(*)) 300 mg PO QAM ANNA Gabapentin (Neurontin Cap(*)) 600 mg PO BEDTIME [facility] Piperacillin Sod/Tazobactam (Sod 3.375 gm/ Sodium Chloride) 100 mls @ 25 mls/ hr IVPB Q8H ANNA Last Admin: 07/14/18 05:59 Dose: 25 mls/hr Vancomycin HCl 1,250 mg/ (Sodium Chloride) 250 mls @ 166.667 mls/hr IVPB Q12H [facility] Insulin Human Lispro (Humalog*) 0 units SUBCUT ACHS [facility]; Protocol Lisinopril (Prinivil Tab*) 5 mg PO DAILY [facility] Metoprolol Succinate (Toprol Xl Tab*) 25 mg PO DAILY [facility] Mometasone Furoate/Formoterol Fumar (Dulera 200/5 Mdi*) 2 puff INH BID [facility]; Protocol Last Admin: 07/14/18 07:45 Dose: Not Given Montelukast Sodium (Singulair Tab*) 10 mg PO DAILY [facility] Multivitamins/Minerals (Theragran/Minerals Tab*) 1 tab PO DAILY [facility] Nitroglycerin (Nitroglycerin Tab 0.4 Mg*) 0.4 mg SL Q5M PRN PRN Reason: chest pain Non-Formulary Medication ([place]-3 Fatty Acids/Fish Oil [[place] 3 1,000 Mg Softgel ]) 1 tab PO BEDTIME [facility] Oxycodone/Acetaminophen (Percocet 5/325 Tab*) 1 tab PO Q8H PRN PRN Reason: Pain Pharmacy Consult (Vancomycin Per Pharmacy*) 1 note FOLLOW UP .VANC PER PHARMACY [facility] Pharmacy Consult (Zosyn Per Pharmacy*) 1 note FOLLOW UP .ZOSYN PER PHARMACY [facility] Pharmacy Profile Note (Vancomycin Trough Check) 1 note FOLLOW UP 1330 ONE Stop: 07/15/18 13:31 Vital Signs - 8 hr 07/14/18 07/14/18 07/14/18 01:00 02:00 02:03 Temperature Pulse Rate 67 63 69 Respiratory Rate Blood Pressure 123/65 (mmHg) O2 Sat by Pulse 99 97 99 Oximetry 07/14/18 07/14/18 07/14/18 02:33 03:00 03:03 Temperature Pulse Rate 58 64 66 Respiratory Rate Blood Pressure 131/68 133/67 (mmHg) O2 Sat by Pulse 96 96 95 Oximetry 07/14/18 07/14/18 07/14/18 03:10 03:33 04:00 Temperature 98.4 F Pulse Rate 66 66 Respiratory Rate Blood Pressure 129/66 (mmHg) O2 Sat by Pulse 96 96 Oximetry 07/14/18 07/14/18 07/14/18 04:03 04:33 05:00 Temperature Pulse Rate 60 58 58 Respiratory Rate Blood Pressure 124/67 122/65 (mmHg) O2 Sat by Pulse 96 98 97 Oximetry 07/14/18 07/14/18 07/14/18 05:03 05:33 05:44 Temperature 98.6 F Pulse Rate 70 58 70 Respiratory 18 Rate Blood Pressure 124/65 121/71 114/72 (mmHg) O2 Sat by Pulse 96 96 98 Oximetry 07/14/18 07/14/18 06:03 08:10 Temperature 98.2 F Pulse Rate 63 Respiratory 16 Rate Blood Pressure 135/74 107/55 (mmHg) O2 Sat by Pulse 99 Oximetry Oxygen Devices in Use Now: None Appearance: Comfortable, NAD Eyes: No Scleral Icterus Ears/Nose/Mouth/Throat: Clear Oropharnyx, Mucous Membranes Moist Neck: NL Appearance and Movements; NL JVP Respiratory: Symmetrical Chest Expansion and Respiratory Effort, Clear to Auscultation Cardiovascular: NL Sounds; No Murmurs; No JVD, No Edema Abdominal: NL Sounds; No Tenderness; No Distention Lymphatic: No Cervical Adenopathy Extremities: No Edema, - - Redness and warmth to lle from foot to mid leigh. Bilateral calfs supple. Skin: - - Dime sized wound to plantar aspect of left foot below great toe Neurological: Alert and Oriented x 3, NL Muscle Strength and Tone Nutrition: Taking PO's Result Diagrams: 07/14/18 08:22 07/14/18 08:23 Additional Lab and Data: Laboratory Results - last 24 hr 07/13/18 07/13/18 07/13/18 22:57 22:57 22:57 WBC 12.5 H RBC 3.86 L Hgb 11.6 L Hct 35 L MCV 91 MCH 30 MCHC 33 RDW 13 Plt Count 248 MPV 7.9 Neut % (Auto) Lymph % (Auto) [place] % (Auto) Eos % (Auto) Baso % (Auto) Absolute Neuts (auto) Absolute Lymphs (auto) Absolute Monos (auto) Absolute Eos (auto) Absolute Basos (auto) Absolute Nucleated RBC Nucleated RBC % Sodium 140 Potassium 4.3 Chloride 112 H Carbon Dioxide 21 L Anion Gap 7 BUN 43 H Creatinine 1.53 H Est GFR ( Amer) 54.4 Est GFR (Non-Af Amer) 45.0 BUN/Creatinine Ratio 28.1 H Glucose 132 H Lactic Acid 0.7 Calcium 9.3 Total Bilirubin 0.30 AST 14 ALT 14 Alkaline Phosphatase 67 Total Protein 7.3 Albumin 4.2 Globulin 3.1 Albumin/Globulin Ratio 1.4 07/14/18 07/14/18 08:22 08:23 WBC 10.5 RBC 3.59 L Hgb 11.0 L Hct 33 L MCV 91 MCH 31 MCHC 33 RDW 13 Plt Count 249 MPV 7.5 Neut % (Auto) 69.8 Lymph % (Auto) 13.8 [place] % (Auto) 12.0 Eos % (Auto) 4.1 Baso % (Auto) 0.3 Absolute Neuts (auto) 7.3 Absolute Lymphs (auto) 1.4 Absolute Monos (auto) 1.3 H Absolute Eos (auto) 0.4 Absolute Basos (auto) 0 Absolute Nucleated RBC 0 Nucleated RBC % 0 Sodium 139 Potassium 4.4 Chloride 113 H Carbon Dioxide 21 L Anion Gap 5 BUN 34 H Creatinine 1.28 H Est GFR ( Amer) 66.8 Est GFR (Non-Af Amer) 55.2 BUN/Creatinine Ratio 26.6 H Glucose 143 H Lactic Acid Calcium 8.7 Total Bilirubin AST ALT Alkaline Phosphatase Total Protein Albumin Globulin Albumin/Globulin Ratio Assess/Plan/Problems-Billing Assessment: 73 yr old male with pmh significant for DM with neuropathy, chronic left nonhealing ulcer, CAD, cellulitis, prostate ca; who presented to the ED with several days of erythema and edema of LLE and also fever - Patient Problems (1) Wound of left foot Comment: - Xray unremarkable, therefore, MRI ordered - CRP ordered - Ultrasound ordered due to pain in left calf which was negative for DVT (2) Diabetes mellitus type 2 Comment: - Hold oral medications and continue lispro sliding scale (3) Diabetic neuropathy Comment: - Baseline - Continue gabapentin; Patient reports he is usually on 600 mg TID, therefore, increased accordinly. Hold for sedation (4) Cellulitis Comment: - LLE Cellulitis improving - Cont Zosyn; ID consult discontinued Vanco (5) Full code status (6) DVT prophylaxis Comment: - Lovenox Attending: Nara Hernandez
[2018-07-14 09:12] LABS: ABS Basophils 0 10^3/ul (0-0.2); ABS Eosinophils 0.4 10^3/ul (0-0.6); ABS Lymphocytes 1.4 10^3/ul (1.0-4.8); ABS Monocytes 1.3 10^3/ul (0-0.8); ABS Neutrophils 7.3 10^3/ul (1.5-7.7); ABS Nucleated RBC 0 10^3/ul; Eosinophil % 4.1 %; Hematocrit 33 % (36-46); Lymphocyte % 13.8 %; Mean Corpuscular HGB Conc 33 g/dL (31-36); Mean Corpuscular Hemoglobin 31 pg (27-31); Mean Corpuscular Volume 91 fL (80-94); Mean Platelet Volume 7.5 fL (7.4-10.4); Nucleated Red Blood Cells % 0; Platelet Count 249 10^3/uL (150-450); Red Blood Count 3.59 10^6 /uL (4.18-5.48); Red Cell Distribution Width 13 % (10.5-15); White Blood Count 10.5 10^3/uL (3.5-10.8)
[2018-07-14] MEDS: Metoprolol Succinate XL TAB* 25 MG PO SCH (09:51)
[2018-07-14] MEDS: Multivitamins/Minerals TAB PO SCH (09:51)
[2018-07-14] MEDS: Atorvastatin* 10 MG TAB PO SCH (09:51)
[2018-07-14] MEDS: Montelukast Sodium TAB* 10 MG PO SCH (09:52)
[2018-07-14] MEDS: Lisinopril TAB* 5 MG PO SCH (09:53)
[2018-07-14] MEDS: Famotidine TAB* 20 MG PO SCH (09:53)
[2018-07-14] MEDS: Aspirin EC TAB* 81 MG TAB.EC PO SCH (09:53)
[2018-07-14] MEDS: Insulin LISPRO* 1 UNITS UNIT SUBCUT SCH ×4 (09:54→21:02)
[2018-07-14] MEDS: Fluticasone NASAL SPRAY 50MCG* 16 gm SPRAY BTL BOTH NARES SCH (09:56)
--- NOTE | 2018-07-14 11:17 | CONS ---
CONSULTATION REPORT: DATE OF CONSULT: 07/14/18 REQUESTING PROVIDER: Sierra Delgado NP. CONSULTING SERVICE: Infectious Disease. REASON FOR CONSULTATION: Left lower extremity cellulitis. IMPRESSION: 1. Left foot, ankle lower extremity cellulitis, improving on-broad spectrum antibiotics, likely secondary to left plantar forefoot ulcer, which is chronic, non- pressure related. He had not had osteomyelitis on MRI in April, could be now or could just be related to a skin opening allowing for bacteria in. He had grown methicillin-sensitive Staphylococcus aureus and enterococcus in the past in the wound. 2. Diabetes with neuropathy. 3. Chronic kidney disease. RECOMMENDATION: We will continue Zosyn, stop the vancomycin. An MRI is pending this morning to evaluate for deeper infection. As the wound was dry, there was nothing to culture. HISTORY OF PRESENT ILLNESS: This is a 73-year-old man with diabetes, neuropathy , and has had a left plantar forefoot ulcer for about 4 months, who was admitted here in April with cellulitis associated with the ulcer. An MRI at that time showed no osteomyelitis. He was treated with IV antibiotics, transitioned to oral treatment, which he had as an outpatient and followup with podiatry for debridement every couple of weeks. He does work out of the area so is often gone for work and so could not come for more frequent wound treatments. He had taken antibiotics again in May and then end of June for a couple of weeks when he had little bit more drainage from the wound. He had not been on antibiotics for about 2 weeks. Over the weekend, he developed fevers, chills, left foot and lower leg swelling , redness, and irritation, so he came to the hospital. His white count was 12. He was started on vancomycin and Zosyn. There was not felt to be much to culture in has foot wound. An x-ray of the left foot was done in the ER that showed resorption of the heads of the first through fifth metatarsals. Today, the redness is receding. His leg is still swollen and fairly tender and painful. No fever overnight. PAST MEDICAL HISTORY: 1. Diabetes with peripheral neuropathy. 2. Left foot non-pressure related chronic ulcer. 3. Coronary artery disease, treated with PCI in 2012. 4. Chronic kidney disease stage 3 due to diabetic nephropathy. 5. Prostate cancer treated with prostate resection and urinary incontinence diversion in 2002 with urostomy, self catheterization. 6. Bilateral foot surgeries for hammertoes and high arches with metatarsal head resection. 7. Umbilical hernia repair. 8. Status post appendectomy. 9. Status post tonsillectomy. 10. History of recurrent lower extremity DVT. MEDICATIONS: 1. Aspirin. 2. Lipitor. 3. Enoxaparin. 4. Famotidine. 5. Fluticasone nasal spray. 6. Gabapentin. 7. Lisinopril. 8. Metoprolol. 9. Singulair. 10. Nitroglycerin tablet. 11. Oxycodone as needed. 12. Zosyn 3.375 g every 8 hours by extended infusion. 13. Vancomycin 1250 mg every 12 hours. ALLERGIES: ADHESIVE TAPE and LATEX. FAMILY HISTORY: No recurrent infections. SOCIAL HISTORY: Lives in the area with his . 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 REVIEW OF SYSTEMS: All negative except as noted above to a 14-point review. PHYSICAL EXAM: Vital Signs: Temperature is 37, heart rate 60, respiratory rate 16, blood pressure 107/55, and oxygen saturation is 99% on room air. In general, he is awake, not in distress. Neurologic: He is oriented x3. Follows all commands. No sensation to light touch in either feet. HEENT: There is no conjunctival hemorrhage. Oropharynx without lesions. Neck is supple without mass. Heart is regular rate and rhythm without murmurs, rubs, or gallops. Lungs are clear to auscultation bilaterally. Abdomen: Soft, nontender, and nondistended. There are bowel sounds present. There is an ostomy with clear urine. Skin: There is no rash or splinter hemorrhage. Slight erythema above the plantar foot through the lower leg. There is no crepitus or fluctuance. There is edema to the knee, which is nonpitting. DIAGNOSTIC STUDIES/LAB DATA: Creatinine 1.28. White blood cell count 10, hemoglobin 11, platelets 249. Please see impressions and recommendations outlined above, which I have discussed with Sierra Delgado NP. Thank you for asking me to see Mr. Carlton in consultation. [id number]/[facility] #: [id number] MTDD
[2018-07-14 11:19] LABS: CRP High Sensitivity 89.44 mg/L (<2.00)
[2018-07-14] MEDS: Enoxaparin(*) 40 MG/0.4 ML SYR SUBCUT SCH (11:32)
[2018-07-14] MEDS: oxyCODONE/Acetamin 5/325 MG* TAB PO PRN (13:15)
[2018-07-14] MEDS ORDERED: Vancomycin(*) 1,250 MG in NS 0.9% 250 ML* 250 ML IVPB SCH (14:00)
[2018-07-14] MEDS: Gabapentin CAP(*) 300 MG PO SCH ×2 (15:37→20:43)
[2018-07-14] MEDS: FATTY ACIDS PO SCH (20:45)
[2018-07-14] MEDS: OMEGA PO SCH (20:45)
[2018-07-14] MEDS: FISH OIL PO SCH (20:45)
[2018-07-15] MEDS: Enoxaparin(*) 40 MG/0.4 ML SYR SUBCUT SCH ×2 (03:55→05:17)
[2018-07-15] MEDS: ZOSYN 3.375 GM Q8H per EXTENDED INFUSION IVPB SCH ×6 (05:16→21:45)
[2018-07-15] MEDS: Mometasone/Formoter 200/5 MDI INH SCH ×2 (07:12→20:12)
[2018-07-15] MEDS ORDERED: NS 0.9% 1000 ML** 1,000 ML IV SCH (07:15)
[2018-07-15 07:59] LABS: BUN/Creatinine Ratio 20.7 (8-20); Calcium 8.8 mg/dL (8.6-10.3); EGFR African American 74.9 (>60); EGFR Non-African American 61.9 (>60); Potassium 4.2 mmol/L (3.5-5.0)
[2018-07-15] MEDS: Gabapentin CAP(*) 300 MG PO SCH ×3 (08:48→21:45)
[2018-07-15] MEDS: Lisinopril TAB* 5 MG PO SCH (08:48)
[2018-07-15] MEDS: Famotidine TAB* 20 MG PO SCH (08:49)
[2018-07-15] MEDS: Montelukast Sodium TAB* 10 MG PO SCH (08:49)
[2018-07-15] MEDS: Atorvastatin* 10 MG TAB PO SCH (08:49)
[2018-07-15] MEDS: Multivitamins/Minerals TAB PO SCH (08:49)
[2018-07-15] MEDS: Metoprolol Succinate XL TAB* 25 MG PO SCH (08:49)
[2018-07-15] MEDS: Aspirin EC TAB* 81 MG TAB.EC PO SCH (08:49)
[2018-07-15] MEDS: Insulin LISPRO* 1 UNITS UNIT SUBCUT SCH ×4 (08:50→21:46)
[2018-07-15] MEDS: Fluticasone NASAL SPRAY 50MCG* 16 gm SPRAY BTL BOTH NARES SCH (10:07)
[2018-07-15] MEDS: oxyCODONE/Acetamin 5/325 MG* TAB PO PRN ×2 (11:35→21:46)
--- NOTE | 2018-07-15 13:25 | PN ---
Subjective Date of Service: 07/15/18 Interval History: Patient evaluated this morning at bedside. Reports improvement in appearance and pain in LLE. Denies fever and chills. Received call from RN that patient's called wanting to have patient transferred to the care of a physician. In addition she was requesting all patient's records be sent to a hospital in [place]. This fha underwriter placed call to , answered all of her questions, and updated her on plan of care. I also updated her that patient's care would be transferred to a physician as of tomorrow. was satisfied with discussed and thanked this fha underwriter for calling. Objective Active Medications: Aspirin (Aspirin Ec Tab*) 81 mg PO DAILY [facility] Last Admin: 07/15/18 08:49 Dose: 81 mg Atorvastatin Calcium (Lipitor*) 10 mg PO DAILY [facility] Last Admin: 07/15/18 08:49 Dose: 10 mg Cyanocobalamin (Vitamin B12 Inj *) 1,000 mcg IM WEEKLY [facility] Dextrose (D50w Syringe 50 Ml*) 12.5 gm IV PUSH .FOR FS < 60 - SS PRN PRN Reason: FS < 60 Enoxaparin Sodium (Lovenox(*)) 40 mg SUBCUT Q24HR@0500 [facility] Last Admin: 07/15/18 05:17 Dose: 40 mg Famotidine (Pepcid Tab*) 20 mg PO DAILY [facility] Last Admin: 07/15/18 08:49 Dose: 20 mg Fluticasone Propionate (Flonase Nasal [place] 50mcg*) 2 spray BOTH NARES DAILY [facility] Last Admin: 07/15/18 10:07 Dose: 2 spray Gabapentin (Neurontin Cap(*)) 600 mg PO TID [facility] Last Admin: 07/15/18 08:48 Dose: 600 mg Piperacillin Sod/Tazobactam (Sod 3.375 gm/ Sodium Chloride) 100 mls @ 25 mls/ hr IVPB Q8H [facility] Last Admin: 07/15/18 05:16 Dose: 25 mls/hr Sodium Chloride (Ns 0.9% 1000 Ml) 1,000 mls @ 100 mls/hr IV PER RATE [facility] Stop: 07/15/18 17:14 Last Admin: 07/15/18 07:52 Dose: 100 mls/hr Insulin Human Lispro (Humalog*) 0 units SUBCUT ACHS [facility]; Protocol Last Admin: 07/15/18 08:50 Dose: 1 unit Lisinopril (Prinivil Tab*) 5 mg PO DAILY [facility] Last Admin: 07/15/18 08:48 Dose: 5 mg Metoprolol Succinate (Toprol Xl Tab*) 25 mg PO DAILY [facility] Last Admin: 07/15/18 08:49 Dose: 25 mg Mometasone Furoate/Formoterol Fumar (Dulera 200/5 Mdi*) 2 puff INH BID [facility]; Protocol Last Admin: 07/15/18 07:12 Dose: 2 puff Montelukast Sodium (Singulair Tab*) 10 mg PO DAILY [facility] Last Admin: 07/15/18 08:49 Dose: 10 mg Multivitamins/Minerals (Theragran/Minerals Tab*) 1 tab PO DAILY [facility] Last Admin: 07/15/18 08:49 Dose: 1 tab Nitroglycerin (Nitroglycerin Tab 0.4 Mg*) 0.4 mg SL Q5M PRN PRN Reason: chest pain Non-Formulary Medication ([place]-3 Fatty Acids/Fish Oil [[place] 3 1,000 Mg Softgel ]) 1 tab PO BEDTIME [facility] Last Admin: 07/14/18 20:45 Dose: Not Given Oxycodone/Acetaminophen (Percocet 5/325 Tab*) 1 tab PO Q8H PRN PRN Reason: Pain Last Admin: 07/15/18 11:35 Dose: 1 tab Pharmacy Consult (Zosyn Per Pharmacy*) 1 note FOLLOW UP .ZOSYN PER PHARMACY [facility] Vital Signs - 8 hr 07/15/18 07/15/18 07/15/18 07:16 07:17 08:00 Temperature 98.1 F Pulse Rate 66 66 Respiratory 12 14 16 Rate Blood Pressure 123/60 (mmHg) O2 Sat by Pulse 97 97 Oximetry 07/15/18 07/15/18 08:48 11:35 Temperature Pulse Rate Respiratory 18 18 Rate Blood Pressure (mmHg) O2 Sat by Pulse Oximetry Oxygen Devices in Use Now: None Appearance: Comfortable, NAD Eyes: No Scleral Icterus Ears/Nose/Mouth/Throat: Clear Oropharnyx, Mucous Membranes Moist Neck: NL Appearance and Movements; NL JVP Respiratory: Symmetrical Chest Expansion and Respiratory Effort, Clear to Auscultation Cardiovascular: NL Sounds; No Murmurs; No JVD, RRR, No Edema Abdominal: NL Sounds; No Tenderness; No Distention Lymphatic: No Cervical Adenopathy Extremities: - - No edema, pain, or swelling. Skin: - - Dime sized wound to plantar aspect of left foot. Appears to be draining slightly today (whitish yellow drainage). Neurological: Alert and Oriented x 3, NL Muscle Strength and Tone Nutrition: Taking PO's Result Diagrams: 07/14/18 08:22 07/15/18 07:21 Additional Lab and Data: Laboratory Results - last 24 hr 07/14/18 07/14/18 07/15/18 16:29 20:44 07:21 Sodium 138 Potassium 4.2 Chloride 111 Carbon Dioxide 21 L Anion Gap 6 BUN 24 Creatinine 1.16 Est GFR ( Amer) 74.9 Est GFR (Non-Af Amer) 61.9 BUN/Creatinine Ratio 20.7 H Glucose 145 H POC Glucose (mg/dL) 165 H 169 H Calcium 8.8 07/15/18 07/15/18 07:53 11:46 Sodium Potassium Chloride Carbon Dioxide Anion Gap BUN Creatinine Est GFR ( Amer) Est GFR (Non-Af Amer) BUN/Creatinine Ratio Glucose POC Glucose (mg/dL) 135 H 215 H Calcium Microbiology and Other Data: Microbiology 07/14/18 15:00 Foot Left Skin and Soft Tissue MRSA/MSSA (PCR - Final Mrsa Negative S.aureus Positive 07/14/18 15:00 Foot Left Gram Stain - Final 07/14/18 15:00 Foot Left Wound Culture - Preliminary Staphylococcus Aureus 07/13/18 22:57 Blood Venous Aerobic Blood Culture - Preliminary No Growth Day 1 07/13/18 22:57 Blood Venous Anaerobic Blood Culture - Preliminary No Growth Day 1 07/13/18 22:57 Blood Venous Aerobic Blood Culture - Preliminary No Growth Day 1 07/13/18 22:57 Blood Venous Anaerobic Blood Culture - Preliminary No Growth Day 1 Assess/Plan/Problems-Billing Assessment: 73 yr old male with pmh significant for DM with neuropathy, chronic left nonhealing ulcer, CAD, cellulitis, prostate ca; who presented to the ED with several days of erythema and edema of LLE and also fever - Patient Problems (1) Wound of left foot Comment: - MRI ordered consistent with osteo - CRP elevated at 89.44 - Ultrasound ordered due to pain in left calf which was negative for DVT - Redness and swelling to LLE decreasing. - Wound draining slightly today. - Ortho consulting and we appreciate their assistance. They are recommending ABIs and surgery. Patient contacting surgeon in [place] where he had previous surgery - ID consulting and we appreciate his assistance. He recommends continuing Zosyn and eventually Ancef, but awaiting plans for surgery to plan accordingly. (2) Diabetes mellitus type 2 Comment: - Hold oral medications and continue lispro sliding scale (3) Diabetic neuropathy Comment: - Baseline - Continue gabapentin. Hold for sedation - HOUSTON's ordered per Ortho recommendation (4) Cellulitis Comment: - LLE Cellulitis improving - Cont Zosyn; ID consult (5) Full code status (6) DVT prophylaxis Comment: - Lovenox Status and Disposition: Inpatient. Depending decision on where about to have surgery until then continues to need IV antibiotics. Attending: Nara Hernandez
--- NOTE | 2018-07-15 13:26 | CONS ---
CONSULTATION REPORT: DATE OF CONSULT: 07/15/18 HISTORY OF PRESENT ILLNESS: Jus is a 73-year-old gentleman who has had type 2 diabetes, peripheral neuropathy, venous insufficiency, and coronary artery disease. He has had many surgeries on both forefoot, mostly done in [facility] area. He has had panmetatarsal head excisions and the right foot is remarkably stable with a good skin envelope. He has also had extensive bariatric treatments in the past for his foot ulcers. For the last 3 to 4 months, he has had ulceration of his left fifth metatarsal head and neck area. This has been treated locally by foot doctor. He has had a course of antibiotics, paring of the ulcer and a recent hospitalization with short-term IV antibiotics. Jus currently had been admitted yesterday for some fevers, some malaise, increasing redness around his left lateral forefoot. His medications are outlined in the chart as well as his medical history which includes CAD, prostate cancer, and type 2 diabetes. PHYSICAL EXAM: General: He is in no acute distress, a healthy-appearing male of good height and weight. He is sitting comfortably in bed. Extremities: Neither foot has particularly palpable pulses. Both feet are warm, however. The right forefoot shows panmetatarsal head excision on the plantar aspect with good alignment. Skin intact. Left side shows similar scarring, but there is an ulcer, j carlos sized at the left fifth metatarsal head with some surrounding erythema. There is scant drainage, not particularly foul smelling. DIAGNOSTIC STUDIES/LAB DATA: His MRI shows that he has some mild edema around the fifth metatarsal head and base of the proximal phalanx of the fifth with some edema in both bone areas. PLAN: I have recommended that Jus have ABIs preoperatively. He may need a Vascular consult. Surgically, he is going to need fifth metatarsal and fifth toe excisions. These will be scheduled in the next day or so, but I would obtain the ABIs preoperatively. He is also discussing in his own mind potential discharge and followup in [facility]. We will see how the HOUSTON blood flow turns out. [id number]/[facility] #: [id number] SAMANTHA
[2018-07-15] MEDS ORDERED: Vancomycin Trough Check NOTE FOLLOW UP ONE (13:30)
--- NOTE | 2018-07-15 15:00 | PN ---
Progress Note - Progress Note Date of Service: 07/15/18 SOAP: Subjective: CC: foot infection HPI: 73 year old man with left foot non healing wound and now cellulitis. Fever improved, redness and swelling decreasing. No rash or diarrhea. Objective: Vital Signs Temp 36.7 C 07/15/18 07:16 Pulse 66 07/15/18 07:17 Resp 16 07/15/18 14:24 BP 123/60 07/15/18 07:16 Pulse Ox 97 07/15/18 07:17 Intake & Output 07/14/18 07/15/18 07/15/18 18:59 06:59 18:59 Intake Total 1999 654 480 Output Total 1450 2300 Balance 1999 -796 -1820 Weight 220 lb Intake: IV Fluids 200 269 NS (0.9%) 169 Vanco 100 ZOsyn 100 100 IVPB 385 ZOsyn 385 Oral 1800 0 480 Output: Straight Cath 2300 Urostomy 1450 Other: Estimated Void Small Date of Last Bowel 07/13/18 Movement Estimated Stool Amount Small # Voids 0 Gen:awake, no distress HEENT: no thrush Heart:RRR no murmur Lungs:CTA BL Abd:+BS NTND soft Skin: no rash MSK: Left plantar foot ulcer ; erythema through foot and lower leg with trace edema Laboratory Results - last 24 hr 07/14/18 07/14/18 07/15/18 16:29 20:44 07:21 Sodium 138 Potassium 4.2 Chloride 111 Carbon Dioxide 21 L Anion Gap 6 BUN 24 Creatinine 1.16 Est GFR ( Amer) 74.9 Est GFR (Non-Af Amer) 61.9 BUN/Creatinine Ratio 20.7 H Glucose 145 H POC Glucose (mg/dL) 165 H 169 H Calcium 8.8 07/15/18 07/15/18 07:53 11:46 Sodium Potassium Chloride Carbon Dioxide Anion Gap BUN Creatinine Est GFR ( Amer) Est GFR (Non-Af Amer) BUN/Creatinine Ratio Glucose POC Glucose (mg/dL) 135 H 215 H Calcium Assessment: 1. left foot cellulitis and non pressure chronic ulcer with underlying osteomyelitis , due to MSSA 2. history multiple foot surgeries 3. T2DM with neuropathy Plan: 1. continue zosyn for now to cover anaerobes as well as staph, eventual ancef. He is trying to contact his foot surgeon in [place] as he prefers to have surgery there. Antibiotic plans pending site and timing of surgery.
[2018-07-15] MEDS: FATTY ACIDS PO SCH (21:48)
[2018-07-15] MEDS: FISH OIL PO SCH (21:48)
[2018-07-15] MEDS: OMEGA PO SCH (21:48)
[2018-07-16] MEDS: ZOSYN 3.375 GM Q8H per EXTENDED INFUSION IVPB SCH ×2 (04:43)
[2018-07-16] MEDS: Enoxaparin(*) 40 MG/0.4 ML SYR SUBCUT SCH (04:43)
[2018-07-16] MEDS: Mometasone/Formoter 200/5 MDI INH SCH ×2 (07:37→19:47)
[2018-07-16] MEDS: Atorvastatin* 10 MG TAB PO SCH (08:34)
[2018-07-16] MEDS: Gabapentin CAP(*) 300 MG PO SCH ×3 (08:34→19:30)
[2018-07-16] MEDS: Insulin LISPRO* 1 UNITS UNIT SUBCUT SCH ×4 (08:34→20:38)
[2018-07-16] MEDS: Fluticasone NASAL SPRAY 50MCG* 16 gm SPRAY BTL BOTH NARES SCH (08:34)
[2018-07-16] MEDS: Multivitamins/Minerals TAB PO SCH (08:34)
[2018-07-16] MEDS: Lisinopril TAB* 5 MG PO SCH (08:34)
[2018-07-16] MEDS: Montelukast Sodium TAB* 10 MG PO SCH (08:34)
[2018-07-16] MEDS: Famotidine TAB* 20 MG PO SCH (08:34)
[2018-07-16] MEDS: Aspirin EC TAB* 81 MG TAB.EC PO SCH (08:34)
[2018-07-16] MEDS: Metoprolol Succinate XL TAB* 25 MG PO SCH (08:34)
[2018-07-16] MEDS ORDERED: Cyanocobalamin INJ * 1,000 MCG/ML VIAL 1 ML VIAL IM SCH (09:00)
--- NOTE | 2018-07-16 10:09 | PN ---
Progress Note - Progress Note Date of Service: 07/16/18 SOAP: Subjective: CC: foot infection HPI: 73 year old man with left foot non healing wound and now cellulitis. Fever improved, redness and swelling decreasing. No rash or diarrhea. His instrument maker in [place] can see him next week. Objective: Vital Signs Temp 36.3 C 07/16/18 07:52 Pulse 65 07/16/18 07:52 Resp 16 07/16/18 08:34 BP 117/62 07/16/18 07:52 Pulse Ox 99 07/16/18 07:52 Intake & Output 07/15/18 07/16/18 07/16/18 18:59 06:59 18:59 Intake Total 1078 234 440 Output Total 2300 1400 Balance -1222 -1166 440 Weight 226 lb 9.6 oz Intake: IV Fluids 478 26 NS (0.9%) 26 all fluids 478 IVPB 208 ZOsyn 208 Oral 600 0 440 Output: Urine 1000 [place] 400 Straight Cath 2300 Other: # Bowel Movements 1 0 Estimated Stool Amount Small Gen:awake, no distress HEENT: no thrush Heart:RRR no murmur Lungs:CTA BL Abd:+BS NTND soft Skin: no rash MSK: Left plantar foot ulcer ; milderythema lower leg with trace edema Laboratory Results - last 24 hr 07/15/18 07/15/18 07/15/18 11:46 16:43 21:31 POC Glucose (mg/dL) 215 H 128 H 142 H 07/16/18 07:13 POC Glucose (mg/dL) 144 H Microbiology 07/14/18 15:00 Skin and Soft Tissue MRSA/MSSA (PCR - Final Foot Left Mrsa Negative S.aureus Positive Gram Stain - Final Wound Culture - Preliminary Staphylococcus Aureus 07/13/18 22:57 Aerobic Blood Culture - Preliminary Blood Venous No Growth Day 2 Anaerobic Blood Culture - Preliminary No Growth Day 2 07/13/18 22:57 Aerobic Blood Culture - Preliminary Blood Venous No Growth Day 2 Anaerobic Blood Culture - Preliminary No Growth Day 2 Assessment: 1. left foot cellulitis and non pressure chronic ulcer with underlying osteomyelitis , due to MSSA 2. history multiple foot surgeries 3. T2DM with neuropathy Plan: 1. change to ancef 2 gm IV Q8hrs, he could leave with PICC and home infusion with fu with podiatry out of the area. 35 minutes floor time >50% face to face with patient (and on speaker phone ) re antibiotic plans in setting of leaving area for surgical follow up.
[2018-07-16] MEDS ORDERED: ceFAZolin 2 GM PREMIX in ORs 2 GM/50 ML BAG IVPB SCH (11:00)
[2018-07-16] MEDS: ceFAZolin* 2 GM in NS 100 MLS Q8H (Pharmacy Admix) IVPB SCH ×2 (11:35→19:24)
--- NOTE | 2018-07-16 13:19 | PN ---
Subjective Date of Service: 07/16/18 Interval History: PT deniews pain. Left foot wound drains intermittently Objective Active Medications: Aspirin (Aspirin Ec Tab*) 81 mg PO DAILY [facility] Last Admin: 07/16/18 08:34 Dose: 81 mg Atorvastatin Calcium (Lipitor*) 10 mg PO DAILY [facility] Last Admin: 07/16/18 08:34 Dose: 10 mg Cyanocobalamin (Vitamin B12 Inj *) 1,000 mcg IM WEEKLY [facility] Dextrose (D50w Syringe 50 Ml*) 12.5 gm IV PUSH .FOR FS < 60 - SS PRN PRN Reason: FS < 60 Enoxaparin Sodium (Lovenox(*)) 40 mg SUBCUT Q24HR@0500 [facility] Last Admin: 07/16/18 04:43 Dose: 40 mg Famotidine (Pepcid Tab*) 20 mg PO DAILY [facility] Last Admin: 07/16/18 08:34 Dose: 20 mg Fluticasone Propionate (Flonase Nasal [place] 50mcg*) 2 spray BOTH NARES DAILY [facility] Last Admin: 07/16/18 08:34 Dose: 2 spray Gabapentin (Neurontin Cap(*)) 600 mg PO TID [facility] Last Admin: 07/16/18 12:32 Dose: 600 mg Cefazolin Sodium 2 gm/ Sodium (Chloride) 100 mls @ 200 mls/hr IVPB Q8H [facility] Last Admin: 07/16/18 11:35 Dose: 200 mls/hr Insulin Human Lispro (Humalog*) 0 units SUBCUT ACHS [facility]; Protocol Last Admin: 07/16/18 12:32 Dose: 4 unit Lisinopril (Prinivil Tab*) 5 mg PO DAILY [facility] Last Admin: 07/16/18 08:34 Dose: 5 mg Metoprolol Succinate (Toprol Xl Tab*) 25 mg PO DAILY [facility] Last Admin: 07/16/18 08:34 Dose: 25 mg Mometasone Furoate/Formoterol Fumar (Dulera 200/5 Mdi*) 2 puff INH BID [facility]; Protocol Last Admin: 07/16/18 07:37 Dose: 2 puff Montelukast Sodium (Singulair Tab*) 10 mg PO DAILY [facility] Last Admin: 07/16/18 08:34 Dose: 10 mg Multivitamins/Minerals (Theragran/Minerals Tab*) 1 tab PO DAILY [facility] Last Admin: 07/16/18 08:34 Dose: 1 tab Nitroglycerin (Nitroglycerin Tab 0.4 Mg*) 0.4 mg SL Q5M PRN PRN Reason: chest pain Non-Formulary Medication ([place]-3 Fatty Acids/Fish Oil [[place] 3 1,000 Mg Softgel ]) 1 tab PO BEDTIME [facility] Last Admin: 07/15/18 21:48 Dose: Not Given Oxycodone/Acetaminophen (Percocet 5/325 Tab*) 1 tab PO Q8H PRN PRN Reason: Pain Last Admin: 07/15/18 21:46 Dose: 1 tab Vital Signs - 8 hr 07/16/18 07/16/18 07/16/18 07:37 07:52 08:34 Temperature 97.4 F Pulse Rate 74 65 Respiratory 14 20 16 Rate Blood Pressure 117/62 (mmHg) O2 Sat by Pulse 98 99 Oximetry 07/16/18 07/16/18 07/16/18 11:33 11:35 11:52 Temperature 98.4 F 98.4 F Pulse Rate 73 73 Respiratory 16 16 16 Rate Blood Pressure 114/61 114/61 (mmHg) O2 Sat by Pulse 95 95 Oximetry 07/16/18 12:32 Temperature Pulse Rate Respiratory 16 Rate Blood Pressure (mmHg) O2 Sat by Pulse Oximetry Oxygen Devices in Use Now: None Appearance: 73 yo M in NAD, AAOx3 Eyes: No Scleral Icterus, PERRLA Ears/Nose/Mouth/Throat: NL Teeth, Lips, Gums, Mucous Membranes Moist Neck: NL Appearance and Movements; NL JVP, Trachea Midline Respiratory: Symmetrical Chest Expansion and Respiratory Effort, Clear to Auscultation Cardiovascular: NL Sounds; No Murmurs; No JVD, RRR Abdominal: NL Sounds; No Tenderness; No Distention Lymphatic: No Cervical Adenopathy Extremities: No Clubbing, Cyanosis, - - mild left foot ankle edema Skin: No Nodules or Sclerosis, - - L bottom of foor lateral aspect with small crater like wound at 1.5 cm in diam, covered with eschar, no evidence of cellulitis Neurological: Alert and Oriented x 3, NL Muscle Strength and Tone Result Diagrams: 07/14/18 08:22 07/15/18 07:21 Additional Lab and Data: Laboratory Results - last 24 hr 07/14/18 07/14/18 07/15/18 16:29 20:44 07:21 Sodium 138 Potassium 4.2 Chloride 111 Carbon Dioxide 21 L Anion Gap 6 BUN 24 Creatinine 1.16 Est GFR ( Amer) 74.9 Est GFR (Non-Af Amer) 61.9 BUN/Creatinine Ratio 20.7 H Glucose 145 H POC Glucose (mg/dL) 165 H 169 H Calcium 8.8 07/15/18 07/15/18 07:53 11:46 Sodium Potassium Chloride Carbon Dioxide Anion Gap BUN Creatinine Est GFR ( Amer) Est GFR (Non-Af Amer) BUN/Creatinine Ratio Glucose POC Glucose (mg/dL) 135 H 215 H Calcium Microbiology and Other Data: Microbiology 07/14/18 15:00 Foot Left Skin and Soft Tissue MRSA/MSSA (PCR - Final Mrsa Negative S.aureus Positive 07/14/18 15:00 Foot Left Gram Stain - Final 07/14/18 15:00 Foot Left Wound Culture - Preliminary Staphylococcus Aureus 07/13/18 22:57 Blood Venous Aerobic Blood Culture - Preliminary No Growth Day 1 07/13/18 22:57 Blood Venous Anaerobic Blood Culture - Preliminary No Growth Day 1 07/13/18 22:57 Blood Venous Aerobic Blood Culture - Preliminary No Growth Day 1 07/13/18 22:57 Blood Venous Anaerobic Blood Culture - Preliminary No Growth Day 1 Assess/Plan/Problems-Billing Assessment: 73 yr old male with pmh significant for DM with neuropathy, chronic left nonhealing ulcer, CAD, cellulitis, prostate ca; who presented to the ED with several days of erythema and edema of LLE and also fever - Patient Problems (1) Wound of left foot Comment: - MRI consistent with osteo - CRP elevated at 89.44 - Ultrasound ordered due to pain in left calf which was negative for DVT - HOUSTON's show no significant vascular disease - cont Ancef 2 gram IVQ8H. As per d/w pt and Dr. Kimbrough , pt wishes to be discharged and be evaluated for surgery by his foot surgeon in [place] next week. PICC order placed. Likely d/c home on IV antibiotics today (2) Cellulitis Comment: - LLE Cellulitis resolved - cont Ancef (3) CKD (chronic kidney disease) stage 3, GFR 30-59 ml/min Comment: Pt with likely stage III CKD secondary to diabetic nephropathy. Creatinine continues to trend down today as infection has likely improved. Continue to monitor renal function. (4) Diabetes mellitus type 2 Comment: - Hold oral medications and continue lispro sliding scale (5) DVT prophylaxis Comment: - Lovenox Status and Disposition: Inpatient. possible d/c today
--- NOTE | 2018-07-16 18:26 | CONSULT ---
Subjective Date of Service: 07/16/18 Interval History: Mr. Carlton is a 73 yr old male with PMH significant for DM with neuropathy , chronic left foot nonhealing ulcer, CAD, cellulitis, and prostate CA; who presented to the ED with several days of erythema and edema of the left LE and fever. He presented to the hospital with a chronic left foot non healing diabetic ulcer that he follows with his Lpn Care Manager in [facility] for. He states that he has been using Silvadene once daily to the wound per recommendations from his engineering technologist. He has an appointment with the engineering technologist next week (in [place]). Plan is for him to be discharged to home on IV ABX until he is able to be seen in [place]. He reports that he has been treated in the past with HBO, he has had multiple surgeries to bilateral feet due to chronic ulcers. Patient seen and examined at bedside. Family History: Unchanged from Admission Social History: Unchanged from Admission Past Medical History: Unchanged from Admission Review of Systems - Measurements Intake and Output: Intake and Output Last 24 Hours 07/14/18 07/15/18 07/16/18 07/17/18 06:59 06:59 06:59 06:59 Intake Total 100 2654 1312 1130 Output Total 1450 3700 2750 Balance 100 1204 -2388 -1620 Weight 220 lb 220 lb 226 lb 9.6 oz Intake: IV Fluids 100 469 504 NS (0.9%) 169 26 Vanco 100 ZOsyn 200 all fluids 478 IVPB 385 208 50 ZOsyn 385 208 cefazolin 50 Oral 3764 996 4866 Output: Urine 1000 900 [place] 400 Straight Cath 2300 1850 Urostomy 1450 Other: Estimated Void Small Small Date of Last Bowel 07/13/18 07/13/18 Movement # Bowel Movements 0 1 Estimated Stool Amount Small Small Small Large # Voids 0 - Review of Systems Constitutional Symptoms: Negative: Fever, Other - Chills Dermatology: Positive: Other - Diabetic ulcer to left foot Endocrinology: Positive: Diabetes Mellitus Objective Active Medications: Aspirin (Aspirin Ec Tab*) 81 mg PO DAILY ANNA Atorvastatin Calcium (Lipitor*) 10 mg PO DAILY ANNA Cyanocobalamin (Vitamin B12 Inj *) 1,000 mcg IM WEEKLY ANNA Dextrose (D50w Syringe 50 Ml*) 12.5 gm IV PUSH .FOR FS < 60 - SS PRN Reason: FS < 60 Enoxaparin Sodium (Lovenox(*)) 40 mg SUBCUT Q24HR@0500 [facility] Famotidine (Pepcid Tab*) 20 mg PO DAILY [facility] Fluticasone Propionate (Flonase Nasal [place] 50mcg*) 2 spray BOTH NARES DAILY [facility] Gabapentin (Neurontin Cap(*)) 600 mg PO TID [facility] Cefazolin Sodium 2 gm/ Sodium (Chloride) 100 mls @ 200 mls/hr IVPB Q8H [facility] Insulin Human Lispro (Humalog*) 0 units SUBCUT ACHS [facility]; Protocol Lisinopril (Prinivil Tab*) 5 mg PO DAILY [facility] Metoprolol Succinate (Toprol Xl Tab*) 25 mg PO DAILY [facility] Mometasone Furoate/Formoterol Fumar (Dulera 200/5 Mdi*) 2 puff INH BID [facility]; Protocol Montelukast Sodium (Singulair Tab*) 10 mg PO DAILY [facility] Multivitamins/Minerals (Theragran/Minerals Tab*) 1 tab PO DAILY [facility] Nitroglycerin (Nitroglycerin Tab 0.4 Mg*) 0.4 mg SL Q5M PRN Reason: chest pain Non-Formulary Medication ([place]-3 Fatty Acids/Fish Oil [[place] 3 1,000 Mg Softgel ]) 1 tab PO BEDTIME [facility] Oxycodone/Acetaminophen (Percocet 5/325 Tab*) 1 tab PO Q8H PRN Reason: Pain Vital Signs 07/16/18 07/16/18 15:44 15:46 Temperature 97.7 F Pulse Rate 76 Respiratory 18 20 Rate Blood Pressure 116/67 (mmHg) O2 Sat by Pulse 95 Oximetry Oxygen Devices in Use Now: None Appearance: NAD, sitting up in bed Ears/Nose/Mouth/Throat: Mucous Membranes Moist Skin: - - See skin note below Neurological: Alert and Oriented x 3 Lines/Tubes/Other Access: Clean, Dry and Intact Peripheral IV Nutrition: Taking PO's Result Diagrams: 07/14/18 08:22 07/15/18 07:21 Microbiology and Other Data: Microbiology 07/14/18 15:00 Foot Left Skin and Soft Tissue MRSA/MSSA (PCR - Final Mrsa Negative S.aureus Positive 07/14/18 15:00 Foot Left Gram Stain - Final 07/14/18 15:00 Foot Left Wound Culture - Preliminary Staphylococcus Aureus 07/13/18 22:57 Blood Venous Aerobic Blood Culture - Preliminary No Growth Day 1 07/13/18 22:57 Blood Venous Anaerobic Blood Culture - Preliminary No Growth Day 1 07/13/18 22:57 Blood Venous Aerobic Blood Culture - Preliminary No Growth Day 1 07/13/18 22:57 Blood Venous Anaerobic Blood Culture - Preliminary No Growth Day 1 Skin Deviation Note - Skin Deviation Findings Left foot - Ulcer to the lateral plantar foot, measures 1.3 cm x 1.4 cm x 0.1 cm. The wound base is dry, from 9 o'clock to 12 o'clock is an area of dark colored tissue. No drainage noted. The surrounding tissue appears to be calloused, there is slight erythema surrounding the wound on the plantar aspect of the foot. There is also mild erythema to the lateral dorsal aspect of the foot near the 5th toe. Assessment/Plan: Mr. Carlton is a 73 yr old male with PMH significant for DM with neuropathy , chronic left nonhealing ulcer, CAD, cellulitis, and prostate CA; who presented to the ED with several days of erythema and edema of LLE and fever. 1. Left foot diabetic ulcer, chronic. Suspect there is a component of pressure injury due to the anatomy of the remaining 5th metatarsal. ABIs completed on 07/15, shows "essentially there are normal [place] values bilaterally, through there is a relative reduction in values on the left compared to the right. Another subtle difference is mild derangement of the arterial waveforms in the left lower extremity relative to the right". MRI - "Plantar ulceration lateral aspect of the foot with cellulitis extending down to the distal end of the remainder of the 5th metatarsal. There is marrow signal alterations here, decreased on nonenhanced T1 and increased on STIR consistent with osteomyelitis. There is additional limited increased signal on STIR in the base of the proximal phalanx however this is not altered enough on the T1-weighted imaging to confirm osteomyelitis at this level". Recommend applying antibiotic ointment to the ulcer once daily and a dry dressing. 2. Diabetes Mellitus, type 2. HgA1C was 6.8 in 04/2018. Continue good glycemic control to allow for wound healing. 3. Osteomyelitis. See above. Will be discharged on IV ABX, per Dr. Kimbrough. Will follow up with his Lpn Care Manager in [facility] in about 1 week with plans for probably surgery. 4. Diet. Consistent Carbohydrate 5. Code Status. Full Code 6. Disposition. Disposition per primary medicine team TIME SPENT: Time for this wound consultation was 25 minutes and 15 minutes was spent with the patient discussing past medication history, assessing, measuring and photographing the wound. Wound Problem/Plan Is Patient a Wound Clinic Patient: No Attending: Maria Eugenia Keith
[2018-07-16] MEDS: oxyCODONE/Acetamin 5/325 MG* TAB PO PRN (19:31)
[2018-07-16] MEDS: OMEGA PO SCH (20:18)
[2018-07-16] MEDS: FISH OIL PO SCH (20:18)
[2018-07-16] MEDS: FATTY ACIDS PO SCH (20:18)
[2018-07-17] MEDS: ceFAZolin* 2 GM in NS 100 MLS Q8H (Pharmacy Admix) IVPB SCH ×2 (03:19→12:38)
[2018-07-17 03:24] VITALS: BP 112/54
[2018-07-17] MEDS: Enoxaparin(*) 40 MG/0.4 ML SYR SUBCUT SCH (04:59)
[2018-07-17] MEDS: Mometasone/Formoter 200/5 MDI INH SCH ×2 (07:25→19:29)
[2018-07-17] MEDS: Insulin LISPRO* 1 UNITS UNIT SUBCUT SCH ×2 (09:35→12:44)
[2018-07-17] MEDS: Montelukast Sodium TAB* 10 MG PO SCH (10:20)
[2018-07-17] MEDS: Metoprolol Succinate XL TAB* 25 MG PO SCH (10:20)
[2018-07-17] MEDS: Atorvastatin* 10 MG TAB PO SCH (10:20)
[2018-07-17] MEDS: Lisinopril TAB* 5 MG PO SCH (10:21)
[2018-07-17] MEDS: Aspirin EC TAB* 81 MG TAB.EC PO SCH (10:21)
[2018-07-17] MEDS: Gabapentin CAP(*) 300 MG PO SCH ×2 (10:21→14:09)
[2018-07-17] MEDS: Multivitamins/Minerals TAB PO SCH (10:21)
[2018-07-17] MEDS: Famotidine TAB* 20 MG PO SCH (10:21)
[2018-07-17] MEDS: Fluticasone NASAL SPRAY 50MCG* 16 gm SPRAY BTL BOTH NARES SCH (10:33)
--- NOTE | 2018-07-17 10:56 | PN ---
Progress Note - Progress Note Date of Service: 07/17/18 SOAP: Subjective: CC: foot infection HPI: 73 year old man with left foot non healing wound and now cellulitis. Leg redness and swelling resolved. Wound is the same, no pain. He is going to head to [place] next week to see his analysis specialist. Has RUE PICC now. Objective: Vital Signs Temp 36.7 C 07/16/18 22:49 Pulse 66 07/17/18 07:26 Resp 18 07/17/18 10:21 BP 112/54 07/16/18 22:49 Pulse Ox 98 07/17/18 07:26 Intake & Output 07/16/18 07/17/18 07/17/18 18:59 06:59 18:59 Intake Total 1370 345 360 Output Total 3390 875 Balance -2020 -530 360 Weight 227 lb 9.6 oz Intake: IV Fluids 40 NS (0.9%) 40 IVPB 50 305 cefazolin 50 305 Oral 1320 0 360 Output: Urine 1540 875 Straight Cath 1850 Other: Estimated Void Large # Bowel Movements 1 Estimated Stool Amount Large # Voids 1 0 Gen:awake, no distress HEENT: no thrush Heart:RRR no murmur Lungs:CTA BL Abd:+BS NTND soft Skin: no rash MSK: Left plantar foot ulcer some fibrin Laboratory Results - last 24 hr 07/16/18 07/16/18 07/16/18 11:36 16:39 20:30 POC Glucose (mg/dL) 226 H 103 H 236 H 07/17/18 07:23 POC Glucose (mg/dL) 118 H Microbiology 07/14/18 15:00 Skin and Soft Tissue MRSA/MSSA (PCR - Final Foot Left Mrsa Negative S.aureus Positive Gram Stain - Final Wound Culture - Final Staphylococcus Aureus Normal Reva 07/13/18 22:57 Aerobic Blood Culture - Preliminary Blood Venous No Growth Day 3 Anaerobic Blood Culture - Preliminary No Growth Day 3 07/13/18 22:57 Aerobic Blood Culture - Preliminary Blood Venous No Growth Day 3 Anaerobic Blood Culture - Preliminary No Growth Day 3 Assessment: 1. left foot cellulitis and non pressure chronic ulcer with underlying acute osteomyelitis , due to MSSA 2. history multiple foot surgeries 3. T2DM with neuropathy Plan: 1.ancef 2 gm IV Q8hrs, weekly cbc, cmp, crp (ordered), fu with me after return from [place]
--- NOTE | 2018-07-17 12:21 | DS ---
CC: Dr. Washington; Dr. Salty Mendoza; Dr. Kimbrough; Dr. Hurt* DISCHARGE SUMMARY: DATE OF ADMISSION: 07/14/18 DATE OF DISCHARGE TO HOME: 07/17/18 PRIMARY CARE PROVIDER: Dr. Washington. KINESIOTHERAPIST: Dr. Salty Mendoza. DISCHARGE DIAGNOSES: 1. Left foot cellulitis. 2. Osteomyelitis of the left 5th metatarsal. SECONDARY DIAGNOSES: 1. History of multiple foot surgeries in the past. 2. History of coronary artery disease, status post stenting in 2012. 3. Diabetes type 2 with diabetic neuropathy and nephropathy. 4. Chronic kidney disease stage 3. 5. History of prostate cancer, status post resection with significant incontinence afterwards, status post urinary incontinence diversion in 2002 with urostomy and self catheterization. MEDICATIONS AT DISCHARGE: Include cephazolin 2 g IV every 8 hours. The remaining medications are unchanged from admission and include: 1. Aspirin 81 mg daily. 2. Symbicort 160/4.5 two puffs inhalation b.i.d. 3. Pepcid 20 mg b.i.d. 4. Fluticasone nasal spray 2 sprays both nostrils daily. 5. Gabapentin 300 mg q.a.m. and 600 mg at bedtime. 6. Glipizide 2.5 mg at bedtime. 7. Lisinopril 5 mg daily. 8. Melatonin with pyridoxine 1 tablet at bedtime. 9. Metformin 1000 mg twice a day. 10. Metoprolol succinate 25 mg daily. 11. Singulair 10 mg daily. 12. Multivitamin 1 tablet daily. 13. Nitroglycerin 0.4 mg on a p.r.n. basis. 14. [place]-3 fatty acid 1 capsule at bedtime. 15. Pravastatin 40 mg daily. 16. Probiotic 1 tablet daily. 17. Vitamin B12 of 1000 mcg daily. 18. Triple antibiotic ointment to apply to left foot ulcer with dry dressing changes daily. LABORATORY DATA AND STUDIES PERFORMED DURING THE HOSPITAL STAY: On 07/14/18, white blood cell count of 10.5, hemoglobin of 11.0, hematocrit of 33, and platelets of 249. On 07/15/18, sodium of 138, potassium 4.2, chloride 111, carbon dioxide 21, BUN 24, and creatinine of 1.16. Blood cultures obtained at admission were negative in growth. Foot/ulceration cultures obtained on 07/14/18 showed Staphylococcus aureus that was resistant to erythromycin and penicillin, MRSA negative. Arterial Doppler of bilateral lower extremities obtained on 07/15/18, impression : "Essentially normal [place] values bilaterally, though there is a relative reduction in values of the left compared to the right. Another subtle difference is mild derangement of the anterior waveforms of the left lower extremity relative to the right." Venous Doppler study on 07/14/18 showed no evidence of DVT in the left lower extremity. MRI of the left foot obtained on 07/14/18, impression: "Plantar ulceration of lateral aspect of the foot with cellulitis extending down to the distal end of the remainder of the 5th metatarsal. There is marrow signal alteration here, decreased on nonenhanced T1 and increased on STIR consistent with osteomyelitis. There is additional limited increased signal on this STIR in the base of the proximal phalanx; however, this is not altered enough on the T1 weighted imaging to confirm osteomyelitis at this level. No other change." Foot x-ray obtained on 07/14/18, impression: "There has been prior resorption of the heads of the 1st to 5th metatarsals. No lucency noted. Overall appearance is unchanged from 04/19/14." CONSULTATIONS DURING THE HOSPITAL STAY: Include: Dr. Kimbrough of Infectious Disease and Dr. Hurt, orthopedic surgeon. HOSPITALIZATION COURSE: Jus Carlton is a 73-year-old male who presented to the hospital on 07/14/18 with complaints of fevers and left foot redness and discharge from the ulcer that he has had for the past couple of months. The patient was noted to have cellulitis and he was admitted with broad antibiotic coverage. He was seen by Dr. Kimbrough in consultation. Wound culture obtained from the left foot ulcer grew MSSA. Dr. Kimbrough recommended for the patient to undergo a surgical evaluation. Dr. Hurt saw from Orthopedic Surgery. The patient wished to have the surgery performed in the [facility] since he has a surgeon there who had been taking care of his feet for the past several years. At that point, a decision was made that the patient is going to have a PICC line inserted and be placed on cephazolin for the next week until he sees his foot surgeon at the [facility] area. The visit with the patient's specialist is scheduled in a week. The patient is also recommended to follow up with Dr. Kimbrough in 1 to 2 weeks and his primary care provider in 4 to 7 days. PHYSICAL EXAMINATION AT THE TIME OF DISCHARGE: Blood pressure of 112/54, heart rate of 66 and regular, respiratory rate of 18, oxygen saturation 95% on room air, and temperature 98.1. General: The patient is a very pleasant 73-year-old male who is in no acute distress. Alert, awake, and oriented x3. HEENT: Head: Atraumatic and normocephalic. Eyes: Pupils are equal, round, and reactive to light and accommodation. Oropharynx clear. Mucosa moist. Neck: Supple. No JVD, no bruits bilaterally. Cardiovascular: Regular rate and rhythm. No murmur. Respiratory: Clear to auscultation bilaterally. Abdomen: Soft and nontender. Bowel sounds are present in all 4 quadrants. Extremities: There is left foot edema with erythema right above the medial malleolus that is decreased from prior. The skin is dry and flaky on the distal left lower extremity. Most of the foot edema in concentrated in the lateral aspect of the left foot in the left 5th metatarsal area. At the head of the left 5th metatarsal, on the bottom of the foot. there is an area of a crater-like ulceration of approximately a cm and a half in diameter with raised edges. The area is covered with eschar. It does drain serous tinged with blood fluid. Neuro Evaluation: Cranial nerves II through XII grossly intact. Motor strength is 5/5 bilaterally. The patient has significantly decreased sensation in bilateral distal lower extremities due to diabetic neuropathy. At discharge, the patient is recommended to try to avoid putting pressure when walking on the left foot ulcer. He is planning to follow up with his surgeon in [place] next week. He is to continue antibiotics via PICC line as instructed that is set up by the IV antibiotic company, [employer]. The patient is instructed to use triple antibiotic ointment to the wound/ulcer in the left foot and dress it daily with gauze. Please note this is a short summary of the patient's hospital stay. Please refer to further medical records for details. TIME SPENT: Approximately 50 minutes was spent on the patient's discharge. Condition at discharge: stable [id number]/[facility] #: [id number] [facility]ITALIdania
== END 2018-07-17 15:00 | disposition home or self-care (01) | DRG 383 ==
LOC: ED 21:23 → MED 07-14 02:42
PROVIDERS: ADMIT Internal Medicine; ATTEND Internal Medicine
PROC: 02HV33Z Insertion of Infusion Device into Superior Vena Cava, Percutaneous Approach (ICD-10-PCS; principal; 2018-07-17)
DX: L03.116 Cellulitis of left lower limb (principal); M86.172 Other acute osteomyelitis, left ankle and foot; E11.69 Type 2 diabetes mellitus with other specified complication; E11.40 Type 2 diabetes mellitus with diabetic neuropathy, unspecified; I25.10 Atherosclerotic heart disease of native coronary artery without angina pectoris; E78.00 Pure hypercholesterolemia, unspecified; E11.51 Type 2 diabetes mellitus with diabetic peripheral angiopathy without gangrene; J45.909 Unspecified asthma, uncomplicated; G47.30 Sleep apnea, unspecified; J42 Unspecified chronic bronchitis; M19.90 Unspecified osteoarthritis, unspecified site; E11.621 Type 2 diabetes mellitus with foot ulcer; N18.3 Chronic kidney disease, stage 3 (moderate); B95.61 Methicillin susceptible Staphylococcus aureus infection as the cause of diseases classified elsewhere; Z16.11 Resistance to penicillins; Z16.29 Resistance to other single specified antibiotic; E11.22 Type 2 diabetes mellitus with diabetic chronic kidney disease; Z90.89 Acquired absence of other organs; Z79.82 Long term (current) use of aspirin; Z85.46 Personal history of malignant neoplasm of prostate; I25.2 Old myocardial infarction; Z91.040 Latex allergy status; Z91.048 Other nonmedicinal substance allergy status; Z86.718 Personal history of other venous thrombosis and embolism; Z95.5 Presence of coronary angioplasty implant and graft; Z72.89 Other problems related to lifestyle; Z79.84 Long term (current) use of oral hypoglycemic drugs
CPT/HCPCS: 36415; 80048; 80053; 83605; 85025; 85027; 86141; 87040; 87070; 87077; 87186; 87205; 87640; 87641; 93922; 94640; 99284; A9270-GY; C1751; G8978-GP-CK; G8979-GP-CI; J0690; J1650; J2543; J3370

== ENCOUNTER 2018-10-03 18:36 | Emergency (ER) | payer BC ==
--- NOTE | 2018-10-03 19:11 | ED ---
HPI Chest Pain - HPI Summary HPI Summary: Patient is a 73 y/o M w/ PMHx of [place] five years ago presents to ED with complaints of left anterior chest pain onsetting today around 1700. He reports that he was driving when chest pain onset. Patient called nurse's hotline and his doctor's hotline, patient was advised to come to ED for further evaluation. Pain is described as a discomfort and has progressively worsened since onset. No radiation of pain is noted. Patient reports that certain movements and palpitation aggravate pain. He denies diaphoresis but states he feels light- headed and "spacey". Patient notes that he had two stents placed during his [place] by Dr. Jones and states his current inclinometer tester is Dr. Chen. He denies any residual effects from the [place]. notes that the patient has had "bouts of infection" within this past year and also had left foot surgery this year. PMHx of diabetes, CAD, DVT, HLD, [place], cardiomegaly, peripheral vascular disease, asthma, PNA, sleep apnea, prostates cancer. Occasional alcohol consumption, no substance usage, and non-smoker reported. On triage, pain is rated 3/10. Home medications and allergies are reviewed. BP 126/77, o2 98, pulse 72. - History of Current Complaint Chief Complaint: EDChestPainROMI Time Seen by Provider: 10/03/18 19:01 Hx Obtained From: Patient Onset/Duration: Started Hours Ago, Still Present Timing: Constant, Lasting Hours Initial Severity: Mild Current Severity: Mild Pain Intensity: 3 Pain Scale Used: 0-10 Numeric Chest Pain Location: Left Anterior Chest Pain Radiates: No Character: Other: - discomfort Aggravating Factor(s): Movement, Other: - palpation Alleviating Factor(s): Nothing Associated Signs and Symptoms: Positive: Lightheadedness, Other: - "spacey". Negative: Diaphoresis - Additional Pertinent History Primary Care Physician: [id number] - Allergy/Home Medications Allergies/Adverse Reactions: Allergies Allergy/AdvReac Type Severity Reaction Status Date / Time Adhesive Tape [Silk Tape] Allergy Unknown Verified 03/09/17 18:33 Reaction Details latex Allergy Swelling Verified 04/15/18 14:17 PMH/Surg Hx/FS Hx/Imm Hx Endocrine/Hematology History: Reports: Hx Anticoagulant Therapy, Hx Diabetes Denies: Hx Sickle Cell Disease, Hx Thyroid Disease, Hx Anemia, Hx Unexplained Bleeding Cardiovascular History: Reports: Hx Cardiomegaly, Hx Coronary Artery Disease, Hx Deep Vein Thrombosis, Hx Hypercholesterolemia, Hx Myocardial Infarction, Hx Peripheral Vascular Disease, Other Cardiovascular Problems/Disorders - cardiomegaly , Denies: Hx Aneurysm, Hx Angina, Hx Angioplasty, Hx Auto Implanted Cardiovert Defib, Hx Cardiac Arrest, Hx Congenital Heart Disease, Hx Congestive Heart Failure, Hx Embolism, Hx Hypotension, Hx Hypertension, Hx Pacemaker/ICD, Hx Rheumatic Fever, Hx Syncope, Hx Valvular Heart Disease Respiratory History: Reports: Hx Asthma, Hx Chronic Bronchitis, Hx Pneumonia, Hx Sleep Apnea, Other Respiratory Problems/Disorders - FREQUENT PNEUMONIA Denies: Hx Pulmonary Embolism, Hx Seasonal Allergies GI History: Reports: Other GI Disorders - 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 Denies: Hx Cirrhosis, Hx Crohn's Disease, Hx Diverticulosis, Hx Gall Bladder Disease, Hx Gastroesophageal Reflux Disease, Hx Gastrointestinal Bleed, Hx Hiatal Hernia, Hx Irritable Bowel, Hx Jaundice, Hx Obstructive Bowel, Hx Ileostomy, Hx Pyloric Stenosis, Hx Ulcer History: Reports: Other Problems/Disorders - Continent urinary diversion at [facility] Denies: Hx Acute Renal Failure, Hx Benign Prostatic Hyperplasia, Hx Chronic Renal Failure, Hx Dialysis, Hx Kidney Infection, Hx Kidney Stones Musculoskeletal History: Reports: Hx Arthritis, Hx Back Problems, Hx Bursitis - KNEE, Other Musculoskeletal History - osteomyleitis Denies: Hx Gout, Hx Osteoporosis, Hx Scoliosis Sensory History: Reports: Hx Contacts or Glasses Denies: Hx Hearing Aid Opthamlomology History: Reports: Hx Contacts or Glasses Neurological History: Reports: Hx Nerve Disease - 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 urostomy Hx Anesthesia Reactions: No - Immunization History Date of Influenza Vaccine: 11/2016 Infectious Disease History: No Infectious Disease History: Denies: Hx Clostridium Difficile, Hx Hepatitis, Hx Human Immunodeficiency Virus (HIV), Hx of Known/Suspected MRSA, Hx Shingles, Hx Tuberculosis, Hx Known/ Suspected VRE, Hx Known/Suspected VRSA, History Other Infectious Disease, Traveled Outside the [place] in Last 30 Days - Family History Known Family History: Positive: Blood Disorder - FMHx of blood clots , Other - neg: anaesthesia reaction - Social History Alcohol Use: Occasionally Alcohol Amount: 1 drink per month Hx Substance Use: No Substance Use Type: Reports: None Hx Tobacco Use: No Smoking Status (MU): Never Smoked Tobacco Have You Smoked in the Last Year: No Review of Systems Negative: Skin Diaphoresis Positive: Chest Pain Neurological: Other - positive - light-headed and "spacey" All Other Systems Reviewed And Are Negative: Yes Physical Exam - Summary Physical Exam Summary: Appearance: Well-appearing, Well-nourished, lying in bed comfortably Skin: Warm, dry, no obvious rash Eyes: sclera anicteric, no conjunctival pallor ENT: mucous membranes moist, pharynx appears normal Neck: Supple, nontender Respiratory: Clear to auscultation, no signs of respiratory distress Cardiovascular: Normal S1, S2. No murmurs. Normal distal pulses in tibial and radial bilaterally. Abdomen: Soft, nontender, normal active bowel sounds present Musculoskeletal: Normal, Strength/ROM Intact; upper left anterior chest tenderness near costochondral cartilage. Neurological: A&Ox3, awake and alert, mentation is normal, speech is fluent and appropriate Psychiatric: affect is normal, does not appear anxious or depressed Triage Information Reviewed: Yes Vital Signs On Initial Exam: Initial Vitals Temp Pulse Resp BP Pulse Ox 98.1 F 76 20 145/61 99 10/03/18 18:40 10/03/18 18:40 10/03/18 18:40 10/03/18 18:40 10/03/18 18:40 Vital Signs Reviewed: Yes Diagnostics - Vital Signs Vital Signs Temp Pulse Resp BP Pulse Ox 10/03/18 18:40 98.1 F 76 20 145/61 99 - Laboratory Result Diagrams: 10/03/18 19:38 10/03/18 19:38 Lab Statement: Any lab studies that have been ordered have been reviewed, and results considered in the medical decision making process. - Radiology CXR Radiology Interpretation Completed By: ED Physician Summary of Radiographic Findings: No acute process, pending official report. - EKG 1846 Cardiac Rate: NL - rate of 74 BPM EKG Rhythm: Sinus Rhythm Summary of EKG Findings: NSR at 74 BPM, P waves, QRS complex, and T waves are within normal limits, T waves and intervals are normal, no ischemic changes. This is a normal EKG Chest Pain Course/Dx - Course Course Of Treatment: Patient is a 73 y/o M w/ PMHx of [place] five years ago presents to ED with complaints of left anterior chest pain onsetting today around 1700. He reports that he was driving when chest pain onset. Patient called nurse's hotline and his doctor's hotline, patient was advised to come to ED for further evaluation. Pain is described as a discomfort and has progressively worsened since onset. No radiation of pain is noted. Patient reports that certain movements and palpitation aggravate pain. He denies diaphoresis but states he feels light-headed and "spacey". Patient notes that he had two stents placed during his [place] by Dr. Jones and states his current inclinometer tester is Dr. Chen. He denies any residual effects from the [place]. notes that the patient has had "bouts of infection" within this past year and also had left foot surgery this year. PMHx of diabetes, CAD, DVT, HLD, [place], cardiomegaly, peripheral vascular disease, asthma, PNA, sleep apnea, prostates cancer. Occasional alcohol consumption, no substance usage, and non-smoker reported. On physical exam, upper left anterior chest tenderness near costochondral cartilage is noted. NSR at 74 BPM, P waves, QRS complex, and T waves are within normal limits, T waves and intervals are normal, no ischemic changes. This is a normal EKG. CXR showed no acute process. Labs showed Hgb 11.2, Hct 32, absolute monos 1, chloride 114, BUN 39, creatinine 1.96, glucose 150, lactic 0.6, AST 12. First and second trops were negative. Results of labs and tests were discussed with patient, he will be discharged to home and follow up with PCP. - Diagnoses Provider Diagnoses: Chest pain Discharge - Sign-Out/Discharge Documenting (check all that apply): Patient Departure - discharge Patient Received Moderate/Deep Sedation with Procedure: No - Discharge Plan Condition: Good Disposition: HOME Patient Education Materials: Chest Pain (ED) Referrals: Prabha Washington MD [Primary Care Provider] - 3 Days - Billing Disposition and Condition Condition: GOOD Disposition: Home - Attestation Statements Document Initiated by Cara: Yes Documenting Scribe: LUIS RAMACHANDRAN Provider For Whom Cara is Documenting (Include Credential): SARA TENA MD Scribe Attestation: LUIS Gipson, zuriibed for SARA TENA MD on 10/07/18 at 0751. Scribe Documentation Reviewed: Yes Provider Attestation: The documentation as recorded by the LUIS rawls accurately reflects the service I personally performed and the decisions made by me, SARA TENA MD Status of Scribe Document: Viewed
[2018-10-03 19:44] LABS: ABS Basophils 0.1 10^3/ul (0-0.2); ABS Eosinophils 0.5 10^3/ul (0-0.6); ABS Lymphocytes 1.8 10^3/ul (1.0-4.8); Eosinophil % 5.5 %; Hematocrit 32 % (42-52); Hemoglobin 11.2 g/dL (14.0-18.0); Lymphocyte % 21.5 %; Mean Corpuscular HGB Conc 35 g/dL (31-36); Mean Corpuscular Hemoglobin 31 pg (27-31); Mean Corpuscular Volume 90 fL (80-94); Mean Platelet Volume 7.5 fL (7.4-10.4); Platelet Count 225 10^3/uL (150-450); Red Cell Distribution Width 14 % (10-15); White Blood Count 8.3 10^3/uL (3.5-10.8)
[2018-10-03 20:02] LABS: Albumin 4.2 g/dL (3.2-5.2); Albumin/Globulin Ratio 1.5 (1-3); BUN/Creatinine Ratio 19.9 (8-20); Calcium 9.3 mg/dL (8.6-10.3); EGFR African American 40.9 (>60); EGFR Non-African American 33.8 (>60); Globulin 2.8 g/dL (2-4); Potassium 4.9 mmol/L (3.5-5.0); Total Bilirubin 0.2 mg/dL (0.2-1.0)
[2018-10-03 20:04] LABS: Troponin I 0.01 ng/mL (<0.04)
[2018-10-04 00:17] VITALS: BP 130/76
== END 2018-10-04 00:16 | disposition home or self-care (01) ==
LOC: ED 18:36
DX: R07.89 Other chest pain (principal); R42 Dizziness and giddiness; E11.40 Type 2 diabetes mellitus with diabetic neuropathy, unspecified; Z86.718 Personal history of other venous thrombosis and embolism; I25.2 Old myocardial infarction; Z79.01 Long term (current) use of anticoagulants; Z95.5 Presence of coronary angioplasty implant and graft; Z91.040 Latex allergy status; Z91.048 Other nonmedicinal substance allergy status
CPT/HCPCS: 36415; 71045; 80053; 83605; 84484; 85025; 93005; 99284

== ENCOUNTER 2018-12-18 12:30 | Emergency (ER) | payer BC ==
--- OUTSIDE RECORDS SUMMARY | 2018-12-18 13:03 | XMS REPORT | Continuity of Care Document ---
:1945 External Reference #:[id number] Author Name Jigar Canales MD (transmitted by agent of provider Vandana Escalera) Address [address] [address] Care Team Providers Name Role Phone Chuy Escalera MD - Endocrinology, Care Team Information Pass Worker Diabetes & Metabolism Prabha Washington MD - Internal Care Team Information Pass Worker Medicine Problems Active Problems Provider Date Type 2 diabetes mellitus Kiran Davis, 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/2007 Martir,FACP Neuralgia Neuritis & Radiculitis Kiran Davis, 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/2007 Unspecified Martir,FACP Lyme disease Kiran Davis, 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/2007 Martir,FACP Pure hypercholesterolemia Kiran Davis, 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/2007 Martir,FACP 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, 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 Martir,FACP Anticoagulants Long-Term (Current) Use Kiran Davis, 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/2007 Encounter Martir,FACP Sleep apnea Kiran Davis, Onset: 06/18/2007 Martir,FACP Peripheral venous insufficiency Kiran Davis, Onset: 06/18/2007 Martir,FACP Diabetic polyneuropathy Kiran Davis, Onset: 10/07/2007 Martir,FACP 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 Kiran Davis, Onset: 06/17/2008 mellitus Martir,FACP Hyperlipidemia Wojciech Jones M.D., [facility], Onset: 04/16/2013 [facility] Benign essential hypertension Wojciech Jones M.D., [facility], Onset: 04/16/2013 [facility] Chronic ischemic heart disease Wojciech Jones M.D., [facility], Onset: 04/16/2013 [facility] Essential hypertension Wojciech Jones M.D., [facility], Onset: 08/01/2015 [facility] Atherosclerotic heart disease of cabaz[place] Wojciech Jones M.D., [facility], 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 [facility] Obesity Wojciech Jones M.D., [facility], Onset: 06/18/2016 [facility] Localized, primary osteoarthritis Sofya Borrego M.D. Onset: 11/03/2018 Coronary atherosclerosis Noble Chen M.D. Onset: 11/11/2018 Social History Type Date Description Comments Sex Unknown Tobacco Use Start: Unknown Never Smoked Cigarettes ETOH Use consumes 1-2 glasses of wine per week Recreational Drug Use Never Used Drugs Tobacco Use Start: Unknown Patient has never smoked Smoking Status Reviewed: 12/04/18 Patient has never smoked Exercise Type/Frequency Exercises rarely Allergies, Adverse Reactions, Alerts Active Allergies Reaction Severity Comments Date NKDA 04/06/2014 Latex Rash 04/06/2014 Adhesives blisters 04/06/2014 Inactive Allergies None 03/18/2007 NKDA 04/16/2013 S 06/03/2013 Medications Active Medications SIG Qnty Indications Ordering Provider Date Lisinopril 1 by mouth every Wojciech Jones M.D., 11/14/2018 5mg day [facility], [facility] Tablets Metformin HCL ER 1 tablet by 180tabs Nelson Vazquez MD 11/14/2018 mouth every day 750mg Tablets ER at bedtime 24HR Dermacea Gauze Roll Wrap foot bid 4rolls E11.621 Gaiv Carreno, 2018 4"X4-1/8Yd Martir 4"X4-1/8 Misc M86.172 Gauze Sponge Apply bid 60units M86.172 Gavi Carreno M.D. 07/19/2018 4"X4" Pads E11.621 Syringe/Luer use for injection of 12units Bhupinder Weller, 04/17/2018 Slip/1ML/27G X 1/2" Vitamin B 12 1 ml a M.D. 27G X week for 4 weeks 1/2" 1 ML Misc then 1 ml a month Metoprolol Succinate ER 1 by mouth every day 90tabs Noble Chen, 02/12/2018 25mg M.D. Tablets ER 24HR Pravastatin Sodium 1 tablet daily at 90tabs Wojciech Jones M.D., 08/28/2016 40mg bedtime FACC, FSCAI Tablets Gabapentin 2 in the morning, 2 Unknown 06/17/2016 300mg Capsules mid-day, 2 nightly Nitrostat 1 sl q5mins x3 as 25tabs Wojciech Jones M.D., 04/24/2013 0.4mg Tablets Sub needed for chest FACC, FSCAI pain, if no relief call 911 Ammonium Lactate use on legs daily Unknown 12% Cream (uses every 2-3 days) Acetaminophen 2 every 6 hours as Unknown 500mg Tablets needed Vitamin B Complex 1 by mouth every day Unknown Tablets Vitamin D-3 1 by mouth every day Unknown 1000Unit Capsules Vitamin B-12 1 by mouth every day Unknown 100mcg Tablets Symbicort as needed Unknown 160-4.5mcg/Act Aerosol Melatonin ER 1 by mouth every Unknown 5mg Tablets ER night at bedtime Fluticasone Propionate 2 sprays each Unknown nostril bid 50mcg/Act Suspension Glipizide ER 1 by mouth every day 90tabs Nelson Vazquez MD 2.5mg Tablets ER in the morning 24HR Famotidine take one tablet by 60tabs Unknown 20mg Tablets mouth twice a day Multivitamins 1 by mouth every day 30caps Unknown Capsules Probiotic daily Unknown Montelukast Sodium 1 po qd 90tabs Unknown 10mg Tablets Aspirin 1 po qd Unknown 81mg Tablets Freestyle Lite Lancets use as directed 100units Kiran Davis, Martir,FACP Freestyle Lite Test use as directed qd 100units Kiran Davis, Strip or ghada Mcmahan FACP dx: 250.02 Medications Administered in Office Medication SIG Qnty Indications Ordering Provider Date Inj, Regadenoson, 0.1 MG Juan C Grey, DO [facility] 11/27/2018 Injection Technetium TC 99M Juan C Grey, DO [facility] 11/27/2018 Tetrofosmin, Per Unit Dose Up To 40 Millicuries Injection Technetium TC 99M Juan C Grey, DO [facility] 11/27/2018 Tetrofosmin, Per Unit Dose Up To 40 Millicuries Injection Depomedrol 40MG Sofya Borrego M.D. 11/03/2018 Injection Celestone 3 mg and 3mg Mela Catherine-Young, 05/05/2014 Injection M.D. Celestone 3 mg and 3mg Mela Catherine-Young, 04/06/2014 Injection M.DYuniel Immunizations CPT Code Status Date Vaccine Lot # [id number] Given 02/23/2010 Influenza Virus 3Yrs & Over 15547 Given 02/15/2009 Influenza Virus Vaccine, Pandemic Formulation 48073 Given 02/15/2009 Influenza Virus Vaccine, Pandemic Formulation [id number] Given 02/15/2009 Administration Swine Flu Shot 79762 Given 03/18/2007 Influenza Virus 3Yrs & Over 74784 Given 03/18/2007 Influenza Virus 3Yrs & Over [id number] 10126 Given 02/21/2000 Influenza Virus 3Yrs & Over Vital Signs Date Vital Result Comment 12/04/2018 8:02am Height 70 inches 5'10" Weight 217.00 lb Heart Rate 80 /min BP Systolic Sitting 137 mmHg L arm BP Diastolic Sitting 83 mmHg L arm O2 % BldC Oximetry 98 % BMI (Body Mass Index) 31.1 kg/m2 11/14/2018 7:45am Height 70 inches 5'10" Weight 209.00 lb w/ shoes Heart Rate 70 /min BP Systolic Sitting 138 mmHg BP Diastolic Sitting 76 mmHg BMI (Body Mass Index) 30.0 kg/m2 Results Test Date Facility Test Result H/L Range Note Tick-Borne 11/22/2018 [facility] Anaplasma <1:64 titer <1:64 [address] [place] [address] [phone] Babesiosis Evaluation <1:64 titer <1:64 2 Ehrlichia chaffeensis IgG AB <1:64 titer <1:64 3 Lyme Disease Serology Negative Negative 4 Laboratory test 11/22/2018 [facility] Fructosamine 253 mcmol/L 200 - [address] [place] [address] [phone] Vitamin B12 327 pg/mL Normal 180-914 6 Vitamin D Total 25(Oh) 25.1 ng/mL Normal 20-50 7 Lyme Screen W/ Reflex To WB Negative Negative Creatinine Clearance 11/22/2018 [facility] Urine Collection [address] [place] [address] [phone] Urine Total Volume 2350 mL Creatinine, Serum 1.73 mg/dL High 0.51-0.95 Urine Creatinine Concentration 68.77 mg/dL Creatinine Clearance 65 mL/min Low 97-137 Total Protein 24HR 11/22/2018 [facility] Urine Collection Time [address] [place] [address] [phone] Urine Total Volume 2350 mL Urine TP Concentration 43 mg/dL Urine Total Protein/24HR 1010 mg/24Hr High 0-165 Laboratory test 11/22/2018 [facility] Hemoglobin A1c 7.1 % High 4.0-5.[address] (Glyco HGB) [place] [address] [phone] TSH (Thyroid Stim Horm) 1.22 mcIU/mL Normal 0.34-5.60 Comp Metabolic 11/22/2018 [facility] Sodium 140 mmol/L Normal 135-[address] [place] [address] [phone] Chloride 111 mmol/L Normal 101-111 Co2 Carbon Dioxide 23 mmol/L Normal 22-32 Glucose 126 mg/dL High 70-100 Blood Urea Nitrogen 33 mg/dL High 6-24 Creatinine 1.73 mg/dL High 0.67-1.17 BUN/Creatinine Ratio 19.1 Normal 8-20 Calcium 9.3 mg/dL Normal 8.6-10.3 Total Protein 7.3 g/dL Normal 6.4-8.9 Albumin 4.6 g/dL Normal 3.2-5.2 Globulin 2.7 g/dL Normal 2-4 Albumin/Globulin Ratio 1.7 Normal 1-3 Total Bilirubin 0.40 mg/dL Normal 0.2-1.0 Alkaline Phosphatase 78 U/L Normal 34-104 Alt 14 U/L Normal 7-52 Ast 13 U/L Normal 13-39 Egfr Non- 39.0 >60 Egfr 47.2 >60 9 Potassium 5.2 mmol/L High 3.5-5.0 Anion Gap 6 mmol/L Normal 2-11 CBC Auto 11/22/2018 [facility] White Blood 9.1 10^3/uL Normal 3.5-10.[address] [place] [address] [phone] Red Blood Count 3.94 10^6/uL Low 4.18-5.48 Hemoglobin 11.9 g/dL Low 14.0-18.0 Hematocrit 36 % Low 42-52 Mean Corpuscular Volume 90 fL Normal 80-94 Mean Corpuscular Hemoglobin 30 pg Normal 27-31 Mean Corpuscular HGB Conc 34 g/dL Normal 31-36 Red Cell Distribution Width 15 % Normal 10-15 Platelet Count 232 10^3/uL Normal 150-450 Mean Platelet Volume 7.3 fL Low 7.4-10.4 Abs Neutrophils 6.7 10^3/uL Normal 1.5-7.7 Abs Lymphocytes 1.3 10^3/uL Normal 1.0-4.8 Abs Monocytes 0.8 10^3/uL Normal 0-0.8 Abs Eosinophils 0.3 10^3/uL Normal 0-0.6 Abs Basophils 0.0 10^3/uL Normal 0-0.2 Abs Nucleated RBC 0.0 10^3/uL Granulocyte % 72.8 % Lymphocyte % 14.4 % Monocyte % 8.9 % Eosinophil % 3.5 % Basophil % 0.4 % Nucleated Red Blood Cells % 0.0 Lipid Profile 11/22/2018 [facility] Triglycerides 89 mg/dL 10 (Trig/Chol/HDL) [address] [place] [address] [phone] Cholesterol 135 mg/dL 11 HDL Cholesterol 41.3 mg/dL 12 LDL Cholesterol 76 mg/dL 13 Lipid Panel - 11/22/2018 [facility] Creatine 94 U/L Normal 10- [address] Kinase(CK) [place] [address] [phone] Laboratory test 10/03/2018 [facility] Troponin-I 0.00 <0.[address] (TnI) ng/[place] [address] [phone] CBC Auto Diff 10/03/2018 [facility] White Blood 8.3 Normal 3.5 -10.[address] Count 10^3/[place] [address] [phone] Red Blood Count 3.60 10^6/uL Low 4.18-5.48 Hemoglobin 11.2 g/dL Low 14.0-18.0 Hematocrit 32 % Low 42-52 Mean Corpuscular Volume 90 fL Normal 80-94 Mean Corpuscular Hemoglobin 31 pg Normal 27-31 Mean Corpuscular HGB Conc 35 g/dL Normal 31-36 Red Cell Distribution Width 14 % Normal 10-15 Platelet Count 225 10^3/uL Normal 150-450 Mean Platelet Volume 7.5 fL Normal 7.4-10.4 Abs Neutrophils 5.0 10^3/uL Normal 1.5-7.7 Abs Lymphocytes 1.8 10^3/uL Normal 1.0-4.8 Abs Monocytes 1.0 10^3/uL High 0-0.8 Abs Eosinophils 0.5 10^3/uL Normal 0-0.6 Abs Basophils 0.1 10^3/uL Normal 0-0.2 Abs Nucleated RBC 0.0 10^3/uL Granulocyte % 60.2 % Lymphocyte % 21.5 % Monocyte % 11.9 % Eosinophil % 5.5 % Basophil % 0.9 % Nucleated Red Blood Cells % 0.0 Laboratory test 10/03/2018 [facility] Lactic Acid 0.6 mmol/L Normal 0.5-2.[address] [place] [address] [phone] Comp Metabolic 10/03/2018 [facility] Sodium 140 mmol/L Normal 135-[address] [place] [address] [phone] Potassium 4.9 mmol/L Normal 3.5-5.0 Co2 Carbon Dioxide 23 mmol/L Normal 22-32 Glucose 150 mg/dL High 70-100 Blood Urea Nitrogen 39 mg/dL High 6-24 Creatinine 1.96 mg/dL High 0.67-1.17 BUN/Creatinine Ratio 19.9 Normal 8-20 Calcium 9.3 mg/dL Normal 8.6-10.3 Total Protein 7.0 g/dL Normal 6.4-8.9 Albumin 4.2 g/dL Normal 3.2-5.2 Globulin 2.8 g/dL Normal 2-4 Albumin/Globulin Ratio 1.5 Normal 1-3 Total Bilirubin 0.20 mg/dL Normal 0.2-1.0 Alkaline Phosphatase 73 U/L Normal 34-104 Alt 11 U/L Normal 7-52 Ast 12 U/L Low 13-39 Egfr Non- 33.8 >60 Egfr 40.9 >60 16 Chloride 114 mmol/L High 101-111 Anion Gap 3 mmol/L Normal 2-11 Laboratory 10/03/2018 [facility] Troponin-I 0.01 <0.04 17 test finding [address] (TnI) ng/[place] [address] [phone] CBC Auto Diff 07/24/2018 [facility] White Blood 6.8 Normal 3.5 -10.[address] Count 10^3/[place] [address] [phone] Red Blood Count 3.93 10^6/uL Low 4.18-5.48 Hemoglobin 11.9 g/dL Low 14.0-18.0 Hematocrit 36 % Normal 36-46 Mean Corpuscular Volume 91 fL Normal 80-94 Mean Corpuscular Hemoglobin 30 pg Normal 27-31 Mean Corpuscular HGB Conc 33 g/dL Normal 31-36 Red Cell Distribution Width 14 % Normal 10.5-15 Platelet Count 310 10^3/uL Normal 150-450 Mean Platelet Volume 7.9 fL Normal 7.4-10.4 Abs Neutrophils 4.1 10^3/uL Normal 1.5-7.7 Abs Lymphocytes 1.6 10^3/uL Normal 1.0-4.8 Abs Monocytes 0.8 10^3/uL Normal 0-0.8 Abs Eosinophils 0.4 10^3/uL Normal 0-0.6 Abs Basophils 0 10^3/uL Normal 0-0.2 Abs Nucleated RBC 0 10^3/uL Granulocyte % 60.4 % Lymphocyte % 22.8 % Monocyte % 11.0 % Eosinophil % 5.4 % Basophil % 0.4 % Nucleated Red Blood Cells % 0 Comp Metabolic 07/24/2018 [facility] Sodium 142 mmol/L Normal 135-145 Panel [address] [place] [address] [phone] Potassium 4.7 mmol/L Normal 3.5-5.0 Co2 Carbon Dioxide 24 mmol/L Normal 22-32 Glucose 109 mg/dL High 70-100 Blood Urea Nitrogen 33 mg/dL High 6-24 Creatinine 1.31 mg/dL High 0.67-1.17 BUN/Creatinine Ratio 25.2 High 8-20 Calcium 9.3 mg/dL Normal 8.6-10.3 Total Protein 6.9 g/dL Normal 6.4-8.9 Albumin 4.2 g/dL Normal 3.2-5.2 Globulin 2.7 g/dL Normal 2-4 Albumin/Globulin Ratio 1.6 Normal 1-3 Total Bilirubin 0.20 mg/dL Normal 0.2-1.0 Alkaline Phosphatase 70 U/L Normal 34-104 Alt 4 U/L Low 7-52 Ast 16 U/L Normal 13-39 Egfr Non- 53.8 >60 Egfr 65.1 >60 18 Chloride 112 mmol/L High 101-111 Anion Gap 6 mmol/L Normal 2-11 Laboratory test 07/24/2018 [facility] C Reactive 2.86 mg/L Normal <8.01 finding [address] [facility] [place] [address] [phone] 1 ADDITIONAL INFORMATION This test was developed using an analyte specific reagent. Its performance characteristics were determined by [facility] in a manner consistent with CLIA requirements. This test has not been cleared or approved by the U.S. Food and Drug Administration. 2 ADDITIONAL INFORMATION This test was developed using an analyte specific reagent. Its performance characteristics were determined by [facility] in a manner consistent with CLIA requirements. This test has not been cleared or approved by the U.S. Food and Drug Administration. 3 ADDITIONAL INFORMATION This test was developed using an analyte specific reagent. Its performance characteristics were determined by [facility] in a manner consistent with CLIA requirements. This test has not been cleared or approved by the U.S. Food and Drug Administration. 4 No evidence of antibodies to B. burgdorferi detected. False negative results may occur in recently infected patients (<=2 weeks) due to low or undetectable antibody levels to B. burgdorferi. If recent exposure is suspected, a second sample should be collected and tested in 2-4 weeks. Test Performed by: [facility] [address] [place] [address] 5 Test Performed by: [facility] [address] [place] [address] 6 Normal Range 180 to 914 Indeterminate Range 145 to 180 Deficient Range <145 7 Total 25-Hydroxyvitamin D2 and D3 (25-OH-VitD) <10 ng/mL (severe deficiency) 10-19 ng/mL (mild to moderate deficiency) 20-50 ng/mL (optimum levels) 51-80 ng/mL (increased risk of hypercalciuria) >80 ng/mL (toxicity possible) 8 Therapeutic target for the treatment of diabetes mellitus patients is <7% HBA1C, and in selective patients <6.0%. Please refer to [place] [employer] diabetic care guidelines for further information. 9 Because ethnic data is not always readily available, this report includes an eGFR for both -Americans and non- Americans. The National Kidney Disease Education Program (NKDEP) does not endorse the use of the MDRD equation for patients that are not between the ages of 18 and 70, are , have extremes of body size, muscle mass, or nutritional status, or are non- or non-. According to the National Kidney Foundation, irrespective of diagnosis, the stage of the disease is based on the level of kidney function: Stage Description GFR(mL/min/1.73 m(2)) 1 Kidney damage with normal or decreased GFR 90 2 Kidney damage with mild decrease in GFR 60-89 3 Moderate decrease in GFR 30-59 4 Severe decrease in GFR 15-29 5 Kidney failure <15 (or dialysis) 10 Desirable: <150 Borderline High: 150-199 High: 200-499 Very High: >500 11 Desirable: <200 Borderline High: 200-239 High: >239 12 Low: <40 Desirable: 40-60 High: >60 13 Desirable: <100 Near Optimal: 100-129 Borderline High: 130-159 High: 160-189 Very High: >189 14 Troponin-I testing on Plasma Separator Tubes (PST) has a known false positive rate of 0.20-0.40%. All positive troponins reflex immediately to secondary confirmatory testing. Using the [employer] DxI 800 Access Immunoassay systems, the 99th percentile upper reference limit was demonstrated to be < 0.03 ng/mL. 15 [facility] Severe Sepsis and Septic Shock Management Bundle Measure requires all lactic acids initially measuring >2.0 mmol/L be repeated. 16 Because ethnic data is not always readily available, this report includes an eGFR for both -Americans and non- Americans. The National Kidney Disease Education Program (NKDEP) does not endorse the use of the MDRD equation for patients that are not between the ages of 18 and 70, are , have extremes of body size, muscle mass, or nutritional status, or are non- or non-. According to the National Kidney Foundation, irrespective of diagnosis, the stage of the disease is based on the level of kidney function: Stage Description GFR(mL/min/1.73 m(2)) 1 Kidney damage with normal or decreased GFR 90 2 Kidney damage with mild decrease in GFR 60-89 3 Moderate decrease in GFR 30-59 4 Severe decrease in GFR 15-29 5 Kidney failure <15 (or dialysis) 17 Troponin-I testing on Plasma Separator Tubes (PST) has a known false positive rate of 0.20-0.40%. All positive troponins reflex immediately to secondary confirmatory testing. Using the [employer] DxI 800 Access Immunoassay systems, the 99th percentile upper reference limit was demonstrated to be < 0.03 ng/mL. 18 Because ethnic data is not always readily available, this report includes an eGFR for both -Americans and non- Americans. The National Kidney Disease Education Program (NKDEP) does not endorse the use of the MDRD equation for patients that are not between the ages of 18 and 70, are , have extremes of body size, muscle mass, or nutritional status, or are non- or non-. According to the National Kidney Foundation, irrespective of diagnosis, the stage of the disease is based on the level of kidney function: Stage Description GFR(mL/min/1.73 m(2)) 1 Kidney damage with normal or decreased GFR 90 2 Kidney damage with mild decrease in GFR 60-89 3 Moderate decrease in GFR 30-59 4 Severe decrease in GFR 15-29 5 Kidney failure <15 (or dialysis) Procedures Date Code Description Status 11/27/2018 95561 Stress Test Completed 11/27/2018 15219 Myocardial Perfusion Imaging Tomographic (Spect) Completed Multiple Studies 11/11/2018 58832 EKG Tracing & Interpretation Completed 11/03/2018 95402 Inject/Drain Joint/Bursa Major W/O US Completed 05/15/2010 [id number] Diabetic Foot Exam Completed 04/28/2010 [id number] Diabetic Foot Exam Completed 02/28/2010 [id number] Diabetic Retinal Eye Exam Completed 04/01/2008 [id number] Diabetic Retinal Eye Exam Completed 02/26/2008 [id number] Diabetic Foot Exam Completed 02/05/2008 [id number] Diabetic Foot Exam Completed 02/25/2007 [id number] Diabetic Retinal Eye Exam Completed Medical Devices Description No Information Available Encounters Type Date Location Provider Dx Diagnosis Office Visit 11/14/2018 [place] Alex[place] and Nelson Vazquez MD 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 M.D. knee M25.462 Effusion, left knee M17.12 Unilateral primary osteoarthritis, left knee Office Visit 07/17/2018 9:38a [facility] Terrance Nixon L03.116 Cellulitis of For Morena Bryant M.D. 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 Terrance Nixon L03.116 Cellulitis of For Infectious Martir Bryant left lower limb Diseases L97.529 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 unsp severity E11.621 Type 2 diabetes mellitus with foot ulcer E11.69 Type 2 diabetes mellitus with other specified complication M86.9 Osteomyelitis, unspecified Office Visit 07/16/2018 [facility] Bethany L97.529 Non-pressure 9:32a keri Maria M.D. chronic ulcer oth Hospitalists prt left foot w unsp severity E11.621 Type 2 diabetes mellitus with foot ulcer N18.3 Chronic kidney disease, stage 3 (moderate) E11.21 Type 2 diabetes mellitus with diabetic nephropathy Office Visit 07/16/2018 8:15a Wound Care Yadira Holden E11.621 Type 2 diabetes [facility] [place], [employer] SPECIALIST mellitus with foot ulcer L97.529 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 unsp severity M86.172 Other acute osteomyelitis, left ankle and foot Z78.9 Other specified health status Office Visit 07/15/2018 1:56p Orthopedic Joshua L97.529 Non-pressure Services Of Martir Hurt chronic ulcer oth C.M.AYuniel prt left foot w unsp severity E11.621 Type 2 diabetes mellitus with foot ulcer E11.40 Type 2 diabetes mellitus with diabetic neuropathy, unsp Office Visit 07/15/2018 9:35a [facility] Terrance Nixon L03.116 Cellulitis of For Morena Bryant M.D. left lower limb Diseases L97.529 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 unsp severity E11.621 Type 2 diabetes mellitus with foot ulcer E11.69 Type 2 diabetes mellitus with other specified complication M86.9 Osteomyelitis, unspecified Office Visit 07/15/2018 [facility] L97.529 Non-pressure 9:32a Asskeri pleitez NP chronic ulcer oth Hospitalists prt left foot w unsp severity L03.116 Cellulitis of left lower limb E11.40 Type 2 diabetes mellitus with diabetic neuropathy, unsp E11.621 Type 2 diabetes mellitus with foot ulcer R50.9 Fever, unspecified Office Visit 07/14/2018 9:33a [facility] Terrance Nixon L03.116 Cellulitis of For Morena Bryant M.D. left lower limb Diseases L97.529 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 unsp severity E11.40 Type 2 diabetes mellitus with diabetic neuropathy, unsp E11.22 Type 2 diabetes mellitus w diabetic chronic kidney disease N18.3 Chronic kidney disease, stage 3 (moderate) Office Visit 07/14/2018 [facility] L97.529 Non-pressure 9:31a Asskeri pleitez MD chronic ulcer oth Hospitalists prt left foot w unsp severity A41.9 Sepsis, unspecified organism E11.621 Type 2 diabetes mellitus with foot ulcer E11.22 Type 2 diabetes mellitus w diabetic chronic kidney disease L03.116 Cellulitis of left lower limb N18.3 Chronic kidney disease, stage 3 (moderate) I12.9 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 kdny Office Visit 06/30/2018 8:30a Pulmonology And Flor G47.33 Obstructive sleep [facility] apnea (adult) 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) Z68.30 Body mass index (BMI) 30.0-30.9, adult Assessments Date Code Description Provider 12/04/2018 N18.3 Chronic kidney disease, stage 3 Jigar Canales MD (moderate) 12/04/2018 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 nephropathy 11/27/2018 I25.10 Coronary atherosclerosis Noble Chen M.D. 11/27/2018 R07.89 Chest discomfort Noble Chen M.D. 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 specified complication 11/11/2018 R07.89 Chest discomfort Noble Chen M.D. 11/11/2018 I25.10 Coronary atherosclerosis Noble Chen M.D. 11/11/2018 E78.00 Hypercholesterolemia Noble Chen M.D. 11/03/2018 M25.562 Pain in left knee Sofya Borrego M.D. 11/03/2018 M25.462 Effusion, left knee Sofya Borrego M.D. 11/03/2018 M17.12 Unilateral primary osteoarthritis, Sofya Borrego M.D. left knee 07/17/2018 L03.116 Cellulitis of left lower limb Terrance Bryant M.D. 07/17/2018 L97.529 Non-pressure chronic ulcer oth prt Terrance Bryant M.D. left foot w unsp severity 07/17/2018 L03.116 Cellulitis of left lower limb Bethany Saravia M.D. 07/17/2018 E11.621 Type 2 diabetes mellitus with foot Terrance Bryant M.D. ulcer 07/17/2018 E11.69 Type 2 diabetes mellitus with other Terrance Bryant M.D. specified complication 07/17/2018 L97.529 Non-pressure chronic ulcer oth prt Bethany Saravia M.D. left foot w unsp severity 07/17/2018 M86.9 Osteomyelitis, unspecified Terrance Bryant M.D. 07/17/2018 E11.40 Type 2 diabetes mellitus with diabetic Bethany Saravia M.D. neuropathy, unsp 07/17/2018 N18.3 Chronic kidney disease, stage 3 Bethany Saravia M.D. (moderate) 07/17/2018 E11.22 Type 2 diabetes mellitus w diabetic Bethany Saravia M.D. chronic kidney disease 07/17/2018 M86.9 Osteomyelitis, unspecified Bethany Saravia M.D. 07/16/2018 L03.116 Cellulitis of left lower limb Terrance Bryant M.D. 07/16/2018 L97.529 Non-pressure chronic ulcer oth prt Terrance Bryant M.D. left foot w unsp severity 07/16/2018 L97.529 Non-pressure chronic ulcer oth prt Bethany Saravia M.D. left foot w unsp severity 07/16/2018 E11.621 Type 2 diabetes mellitus with foot Terrance Bryant M.D. ulcer 07/16/2018 E11.69 Type 2 diabetes mellitus with other Terrance Bryant M.D. specified complication 07/16/2018 E11.621 Type 2 diabetes mellitus with foot Yadira Christy MILITARY LOGISTICS SPECIALIST ulcer 07/16/2018 M86.9 Osteomyelitis, unspecified Terrance Bryant M.D. 07/16/2018 L97.529 Non-pressure chronic ulcer of other Yadira Christy NP part of left foot with u 07/16/2018 E11.621 Type 2 diabetes mellitus with foot Bethany Saravia M.D. ulcer 07/16/2018 M86.172 Other acute osteomyelitis, left ankle Yadira Chrisyt NP and foot 07/16/2018 Z78.9 Other specified health status Yadirajaspreet Christy, MARY JO 07/16/2018 N18.3 Chronic kidney disease, stage 3 Bethany Saravia M.D. (moderate) 07/16/2018 E11.21 Type 2 diabetes mellitus with diabetic Bethany Saravia M.D. nephropathy 07/15/2018 L97.529 Non-pressure chronic ulcer oth prt Joshua Hurt M.D. left foot w unsp severity 07/15/2018 L03.116 Cellulitis of left lower limb Terrance Bryant M.D. 07/15/2018 E11.621 Type 2 diabetes mellitus with foot Joshua Hurt M.D. ulcer 07/15/2018 L97.529 Non-pressure chronic ulcer oth prt Terrance Bryant M.D. left foot w unsp severity 07/15/2018 E11.40 Type 2 diabetes mellitus with diabetic Joshua Hurt M.D. neuropathy, unsp 07/15/2018 E11.621 Type 2 diabetes mellitus with foot Terrance Bryant M.D. ulcer 07/15/2018 E11.69 Type 2 diabetes mellitus with other Terrance Bryant M.D. specified complication 07/15/2018 L97.529 Non-pressure chronic ulcer oth prt Sierra Delgado, MILITARY LOGISTICS SPECIALIST left foot w unsp severity 07/15/2018 M86.9 Osteomyelitis, unspecified Terrance Bryant M.D. 07/15/2018 L03.116 Cellulitis of left lower limb Sierra Delgado, MILITARY LOGISTICS SPECIALIST 07/15/2018 M86.172 Other acute osteomyelitis, left ankle Evan Seo MD and foot 07/15/2018 E11.40 Type 2 diabetes mellitus with diabetic Sierra Delgado MILITARY LOGISTICS SPECIALIST neuropathy, unsp 07/15/2018 E11.621 Type 2 diabetes mellitus with foot Sierra Delgado MILITARY LOGISTICS SPECIALIST ulcer 07/15/2018 R50.9 Fever, unspecified Sierra Shortle, MILITARY LOGISTICS SPECIALIST 07/14/2018 L03.116 Cellulitis of left lower limb Terrance Bryant M.D. 07/14/2018 L97.529 Non-pressure chronic ulcer oth prt Grace Morley MD left foot w unsp severity 07/14/2018 L97.529 Non-pressure chronic ulcer oth prt Terrance Bryant M.D. left foot w unsp severity 07/14/2018 A41.9 Sepsis, unspecified organism Grace Morley MD 07/14/2018 E11.40 Type 2 diabetes mellitus with diabetic Terrance Bryant M.D. neuropathy, unsp 07/14/2018 E11.621 Type 2 diabetes mellitus with foot Grace Morley MD ulcer 07/14/2018 E11.22 Type 2 diabetes mellitus w diabetic Terrance Bryant M.D. chronic kidney disease 07/14/2018 E11.22 Type 2 diabetes mellitus w diabetic Grace Morley MD chronic kidney disease 07/14/2018 N18.3 Chronic kidney disease, stage 3 Terrance Bryant M.D. (moderate) 07/14/2018 L03.116 Cellulitis of left lower limb Grace Morley MD 07/14/2018 N18.3 Chronic kidney disease, stage 3 Grace Morley MD (moderate) 07/14/2018 I12.9 Hypertensive chronic kidney disease w Grace Morley MD stg 1-4/unsp chr kdny 06/30/2018 G47.33 Obstructive sleep apnea (adult) Flor Talbert MD (pediatric) 06/30/2018 Z68.30 Body mass index (BMI) 30.0-30.9, adult Flor Talbert MD Plan of Treatment Future Appointment(s):03/04/2019 8:00 am - Jigar Canales MD at 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
--- NOTE | 2018-12-18 13:35 | ED ---
Back Pain - HPI Summary HPI Summary: Pt. is a 73 y.o male who presents to the ER for ongoing left low back and left hip pain x 1 week. Pt. states 2 weeks ago he fell onto hip left hip and then one week ago he slid down a hill injury low back and left hip again. Pt. notes chronic neuropathy in legs. Denies leg weakness. Has been ambulating with a cane. Pt. saw his PCP this past week and had outpt. xrays of l spine and l hip. Lumbar spine showed compression deformity of L1. Pt. was tx with percocet, prednisone, and flexeril with little improvement. Pt. saw PCP in office today and had a toradol shot which helped moderated with the pain and was referred to the ER for further evaluation. Pt. has a hx of prostate ca and self caths on a regular basis. Sxs are mild-moderate in severity. Pt. was able to drive himself to the ER. - History of Current Complaint Chief Complaint: EDBackInjuryPain Stated Complaint: BACK PAIN Time Seen by Provider: 12/18/18 12:45 Hx Obtained From: Patient Pain Intensity: 7 - Allergies/Home Medications Allergies/Adverse Reactions: Allergies Allergy/AdvReac Type Severity Reaction Status Date / Time Adhesive Tape [Silk Tape] Allergy Unknown Verified 03/09/17 18:33 Reaction Details latex Allergy Swelling Verified 04/15/18 14:17 PMH/Surg Hx/FS Hx/Imm Hx Previously Healthy: Yes Endocrine/Hematology History: Reports: Hx Anticoagulant Therapy, Hx Diabetes Denies: Hx Sickle Cell Disease, Hx Thyroid Disease, Hx Anemia, Hx Unexplained Bleeding Cardiovascular History: Reports: Hx Cardiomegaly, Hx Coronary Artery Disease, Hx Deep Vein Thrombosis, Hx Hypercholesterolemia, Hx Myocardial Infarction, Hx Peripheral Vascular Disease, Other Cardiovascular Problems/Disorders - cardiomegaly , Denies: Hx Aneurysm, Hx Angina, Hx Angioplasty, Hx Auto Implanted Cardiovert Defib, Hx Cardiac Arrest, Hx Congenital Heart Disease, Hx Congestive Heart Failure, Hx Embolism, Hx Hypotension, Hx Hypertension, Hx Pacemaker/ICD, Hx Rheumatic Fever, Hx Syncope, Hx Valvular Heart Disease Respiratory History: Reports: Hx Asthma, Hx Chronic Bronchitis, Hx Pneumonia, Hx Sleep Apnea, Other Respiratory Problems/Disorders - FREQUENT PNEUMONIA Denies: Hx Pulmonary Embolism, Hx Seasonal Allergies GI History: Reports: Other GI Disorders - 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 Denies: Hx Cirrhosis, Hx Crohn's Disease, Hx Diverticulosis, Hx Gall Bladder Disease, Hx Gastroesophageal Reflux Disease, Hx Gastrointestinal Bleed, Hx Hiatal Hernia, Hx Irritable Bowel, Hx Jaundice, Hx Obstructive Bowel, Hx Ileostomy, Hx Pyloric Stenosis, Hx Ulcer History: Reports: Other Problems/Disorders - Continent urinary diversion at [facility] Denies: Hx Acute Renal Failure, Hx Benign Prostatic Hyperplasia, Hx Chronic Renal Failure, Hx Dialysis, Hx Kidney Infection, Hx Kidney Stones Musculoskeletal History: Reports: Hx Arthritis, Hx Back Problems, Hx Bursitis - KNEE, Other Musculoskeletal History - osteomyleitis Denies: Hx Gout, Hx Osteoporosis, Hx Scoliosis Sensory History: Reports: Hx Contacts or Glasses Denies: Hx Hearing Aid Opthamlomology History: Reports: Hx Contacts or Glasses Neurological History: Reports: Hx Nerve Disease - 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 urostomy Hx Anesthesia Reactions: No - Immunization History Date of Influenza Vaccine: 11/2016 Infectious Disease History: No Infectious Disease History: Denies: Hx Clostridium Difficile, Hx Hepatitis, Hx Human Immunodeficiency Virus (HIV), Hx of Known/Suspected MRSA, Hx Shingles, Hx Tuberculosis, Hx Known/ Suspected VRE, Hx Known/Suspected VRSA, History Other Infectious Disease, Traveled Outside the [place] in Last 30 Days - Family History Known Family History: Positive: Blood Disorder - FMHx of blood clots , Other - neg: anaesthesia reaction, Non-Contributory - Social History Occupation: Employed Full-time Lives: With Family Alcohol Use: Occasionally Alcohol Amount: 1 drink per month Hx Substance Use: No Substance Use Type: Reports: None Hx Tobacco Use: No Smoking Status (MU): Never Smoked Tobacco Have You Smoked in the Last Year: No Review of Systems Negative: Fever Gastrointestinal: Negative Genitourinary: Negative Positive: Other - left low back and hip pain Skin: Negative Neurological: Negative All Other Systems Reviewed And Are Negative: Yes Physical Exam Triage Information Reviewed: Yes Vital Signs On Initial Exam: Initial Vitals Temp Pulse Resp BP Pulse Ox 98.2 F 81 18 133/78 97 12/18/18 12:39 12/18/18 12:39 12/18/18 12:39 12/18/18 12:39 12/18/18 12:39 Vital Signs Reviewed: Yes Appearance: Positive: Well-Appearing - Pt. lying in bed with left leg up on a pillow. Skin: Positive: Warm, Dry Head/Face: Positive: Normal Head/Face Inspection Eyes: Positive: Normal, EOMI Neck: Positive: Supple Respiratory/Lung Sounds: Positive: Clear to Auscultation, Breath Sounds Present Cardiovascular: Positive: Normal, RRR Abdomen Description: Positive: Nontender, Soft Musculoskeletal: Positive: Other - 5/5 strength in bilateral LEs with flexion and dorsiflexion. Negative straight leg test. No midline lumbar tenderness. Pain left SI joint and with rotation of left hip. Good bilateral pedal pulses. Neurological: Positive: Normal, Alert, Oriented to Person Place, Time, CN Intact II-III Psychiatric: Positive: Affect/Mood Appropriate Diagnostics - Vital Signs Vital Signs Temp Pulse Resp BP Pulse Ox 12/18/18 12:39 98.2 F 81 18 133/78 97 - Laboratory Lab Statement: Any lab studies that have been ordered have been reviewed, and results considered in the medical decision making process. Back Pain Course/Dx - Course Course Of Treatment: Pt. presenting with ongoing low back and hip pain. Pt. declines pain medication. Pt. is afebrile. He had normal WBC on labs from two days ago. Will obtain ct pelvis to r/o occult hip fx and lumbar spine. CT lumbar per radiology: IMPRESSION: 1. OSTEOPENIA. 2. DEGENERATIVE DISC DISEASE AND OSTEOARTHRITIS. 3. THERE IS A CHRONIC COMPRESSION DEFORMITY OF L1. 4. THERE IS MODERATE TO SEVERE NARROWING OF THE CENTRAL CANAL AT L3-L4 AND L4-L5. THERE. IS MILD NARROWING OF THE CENTRAL CANAL AT T12-L1, L1-L2, AND L2-L3.. 5. THERE IS MULTILEVEL NEUROFORAMINAL NARROWING DESCRIBED ABOVE. Patient Name: DARIO MANCINI Medical Record#: [id number]. Ordering Physician: Jan WILSON Acct.#: [id number]. : 1945 Age: 73 Sex: M Location: EMERGENCY DEPARTMENT. Exam Date: 12/18/18 133 ADM Status: REG ER. Order Information: CT SPINE LUMBAR W/O. Accession Number: [id number]. CPT: 26438. HISTORY : fall. COMPARISONS: Radiograph dated December 16, 2018. TECHNIQUE: Multiple contiguous axial CT scans were obtained of the lumbar spine without. intravenous contrast, with coronal and sagittal multiplanar reformations. FINDINGS: SPINAL CANAL: Evaluation of the central canal is limited on CT technique; however, there. is no obvious canalicular mass or epidural hemorrhage. ALIGNMENT: There is accentuation of the thoracic and lumbar kyphosis at L1. VERTEBRAL BODIES: There is diffuse osteopenia. There is a chronic compression deformity of. L1 with minimal osseous retropulsion. JOINTS : There is mild facet osteoarthritis. MUSCULATURE: Unremarkable. INTERVERTEBRAL DISCS: There is diffuse loss of intervertebral disc height throughout the. spine. CT pelvis per radiology: IMPRESSION: 1. OSTEOPENIA. 2. DEGENERATIVE DISC DISEASE AND OSTEOARTHRITIS. 3. THERE IS A CHRONIC COMPRESSION DEFORMITY OF L1. 4. THERE IS MODERATE TO SEVERE NARROWING OF THE CENTRAL CANAL AT L3-L4 AND L4-L5. THERE. IS MILD NARROWING OF THE CENTRAL CANAL AT T12-L1, L1-L2, AND L2-L3.. 5. THERE IS MULTILEVEL NEUROFORAMINAL NARROWING DESCRIBED ABOVE. Case discussed briefly with Dr. Connell, neurosx, he recommends lumbar MRI in ED if possible and can fu outpt. with him if pain is controlled. MRI is booked today and we are unable to get MRI. Pt. has no neuro deficits. He is walking. pt. afebrile and had normal WBC two days ago. I was able to get pt. an apt. with the neurosx clinic for tomorrow at 10. Plan discussed with pt. and he agrees. Can continue pain medication and will return to ER if sxs change or worsen. - Diagnoses Differential Diagnosis/HQI/PQRI: Positive: Arthritis, Epidural Abscess, Fracture , Herniated Disc, Neoplasm, Strain, Sprain Provider Diagnoses: Spinal stenosis, Lumbar disc herniation Discharge ED - Sign-Out/Discharge Documenting (check all that apply): Patient Departure Patient Received Moderate/Deep Sedation with Procedure: No - Discharge Plan Condition: Good Disposition: HOME Patient Education Materials: Lumbar Disc Herniation (ED), Lumbar Spinal Stenosis (ED) Referrals: Prabha Washington MD [Primary Care Provider] - Kurt Connell MD [Medical Doctor] - Additional Instructions: You have an appointment at Dr. Connell tomorrow, 12/19/18, at 10:00am. The office would like you to be there at 9:30am for paperwork Continue medications as directed Return to ER if symptoms change or worsen - Billing Disposition and Condition Condition: GOOD Disposition: Home
[2018-12-18 15:57] VITALS: BP 134/89
== END 2018-12-18 15:49 | disposition home or self-care (01) ==
LOC: ED 12:30
DX: M48.061 Spinal stenosis, lumbar region without neurogenic claudication (principal); M48.56XA Collapsed vertebra, not elsewhere classified, lumbar region, initial encounter for fracture; M51.26 Other intervertebral disc displacement, lumbar region; M85.88 Other specified disorders of bone density and structure, other site; M51.36 Other intervertebral disc degeneration, lumbar region; M47.816 Spondylosis without myelopathy or radiculopathy, lumbar region; M16.0 Bilateral primary osteoarthritis of hip; E11.42 Type 2 diabetes mellitus with diabetic polyneuropathy; Z79.84 Long term (current) use of oral hypoglycemic drugs; Z86.718 Personal history of other venous thrombosis and embolism; Z79.01 Long term (current) use of anticoagulants; I25.2 Old myocardial infarction; Z85.46 Personal history of malignant neoplasm of prostate; Z95.5 Presence of coronary angioplasty implant and graft; Z91.040 Latex allergy status; Z91.048 Other nonmedicinal substance allergy status
CPT/HCPCS: 72131; 72192; 99281

== ENCOUNTER 2019-02-06 18:37 | Inpatient (IN) | payer BC, OTHER ==
--- OUTSIDE RECORDS SUMMARY | 2019-02-06 18:52 | XMS REPORT | Continuity of Care Document ---
:1945 External Reference #:[id number] Author Name KATIE Nava (transmitted by agent of provider Gael Barrios) Address [address] , [place] [address] Care Team Providers Name Role Phone Chuy Escalera MD - Endocrinology, Care Team Information Security Infrastructure Engineer Diabetes & Metabolism Prabha Washington MD - Internal Care Team Information Security Infrastructure Engineer Medicine Problems Active Problems Provider Date Type 2 diabetes mellitus Kiran Davis, 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/2007 Martir,FACP Neuralgia Neuritis & Radiculitis Kiran Davis, 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/2007 Unspecified Martir,FACP Lyme disease Kiran Davis, 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/2007 Martir,FACP Pure hypercholesterolemia Kiran Davis, 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/2007 Martir,FACP 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, Onset: 04/16/2013 [facility] Benign essential hypertension Wojciech Jones M.D., [facility], Onset: 04/16/2013 [facility] Chronic ischemic heart disease Wojciech Jones M.D., [facility], Onset: 04/16/2013 [facility] Essential hypertension Wojciech Jones M.D., [facility], Onset: 08/01/2015 [facility] Atherosclerotic heart disease of viejas Wojciech Jones M.D., [facility], 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 [facility] Obesity Wojciech Jones M.D., [facility], Onset: 06/18/2016 [facility] Localized, primary osteoarthritis Sofya Borrego M.D. Onset: 11/03/2018 Coronary atherosclerosis Noble Chen M.D. Onset: 11/11/2018 Social History Type Date Description Comments Sex Unknown Tobacco Use Start: Unknown Never Smoked Cigarettes ETOH Use consumes 1-2 glasses of wine per week Recreational Drug Use Never Used Drugs Tobacco Use Start: Unknown Patient has never smoked Smoking Status Reviewed: 12/19/18 Patient has never smoked Exercise Type/Frequency Exercises rarely Allergies, Adverse Reactions, Alerts Active Allergies Reaction Severity Comments Date NKDA 04/06/2014 Latex Rash 04/06/2014 Adhesives blisters 04/06/2014 Inactive Allergies None 03/18/2007 NKDA 04/16/2013 S 06/03/2013 Medications Active Medications SIG Qnty Indications Ordering Provider Date Lisinopril 1 by mouth every Wojciech Jones M.D., 11/14/[address] [facility], [facility] Tablets Metformin HCL ER 1 tablet by 180tabs Nelson Vazquez MD 11/14/2018 mouth every day 750mg Tablets ER at bedtime 24HR Dermacea Gauze Roll Wrap foot bid 4rolls E11.621 Gavi Carreno, 2018 4"X4-1/8Yd Martir 4"[facility]4-1/8 [facility] Gauze Sponge Apply bid 60units M86.172 Gavi Carreno M.D. 07/19/2018 4"X4" Pads E11.621 Syringe/Luer Slip/1ML/27G use for injection 12units Bhupinder Weller, 06/2018 X 1/2" of Vitamin B 12 1 M.D. 27G X 1/2" 1 ML Misc ml a week for 4 weeks then 1 ml a month Metoprolol Succinate ER 1 by mouth every 90tabs Noble GayleYuniel 02/12/2018 25mg day Martir Chen Tablets ER 24HR Pravastatin Sodium 1 tablet daily at 90tabs Wojciech Jones M.D., 08/28/2016 40mg Tablets bedtime FACC, FSCAI Nitrostat 1 sl q5mins x3 as 25tabs Wojciech Jones M.D., 04/24/2013 0.4mg Tablets Sub needed for chest FACC, FSCAI pain, if no relief call 911 Symbicort as needed Unknown 160-4.5mcg/Act Aerosol Vitamin B-12 1 by mouth every Unknown 100mcg Tablets day Vitamin D-3 1 by mouth every Unknown 1000Unit Capsules day Vitamin B Complex 1 by mouth every Unknown Tablets day Acetaminophen 2 every 6 hours as Unknown 500mg Tablets needed Ammonium Lactate use on legs daily Unknown 12% Cream (uses every 2-3 days) Pregabalin 1 twice a day for Unknown 50mg Capsules 90 days Prednisone take 2 tabs daily Unknown 10mg Tablets for 1 week then 1 tab daily for 1 week Cyclobenzaprine HCL take 1 tab 3 times Unknown 10mg Tablets daily as needed Oxycodone-Acetaminophen t tab every 6 hours Unknown 5-325mg for 10 days as Tablets needed Melatonin ER 1 by mouth every Unknown 5mg Tablets ER night at bedtime Fluticasone Propionate 2 sprays each Unknown 50mcg/Act nostril bid Suspension Glipizide ER 1 by mouth every 90tabs Nelson Vazquez MD 2.5mg Tablets ER day in the morning 24HR Famotidine take one tablet by 60tabs Unknown 20mg Tablets mouth twice a day Multivitamins 1 by mouth every 30caps Unknown Capsules day Probiotic daily Unknown Montelukast Sodium 1 po qd 90tabs Unknown 10mg Tablets Aspirin 1 po qd Unknown 81mg Tablets Freestyle Lite Lancets use as directed 100units Kiran Davis, Martir,FACP Freestyle Lite Test Strip use as directed qd 100units Kiran Davis, or prn Martir,FACP dx: 250.02 Medications Administered in Office Medication SIG Qnty Indications Ordering Provider Date Inj, Regadenoson, 0.1 MG Juan C Grey, DO [facility] 11/27/2018 Injection Technetium TC 99M Juan C Grey, DO [facility] 11/27/2018 Tetrofosmin, Per Unit Dose Up To 40 Millicuries Injection Technetium TC 99M Juan C Grey, DO [facility] 11/27/2018 Tetrofosmin, Per Unit Dose Up To 40 Millicuries Injection Depomedrol 40MG Sofya Borrego M.D. 11/03/2018 Injection Celestone 3 mg and 3mg Mela Novoa, 05/05/2014 Injection M.DYuniel Celestone 3 mg and 3mg Mela Novoa, 04/06/2014 Injection MYunielDYuniel Immunizations CPT Code Status Date Vaccine Lot # [id number] Given 02/23/2010 Influenza Virus 3Yrs & Over 33394 Given 02/15/2009 Influenza Virus Vaccine, Pandemic Formulation 21169 Given 02/15/2009 Influenza Virus Vaccine, Pandemic Formulation [id number] Given 02/15/2009 Administration Swine Flu Shot 48664 Given 03/18/2007 Influenza Virus 3Yrs & Over 81900 Given 03/18/2007 Influenza Virus 3Yrs & Over [id number] 41751 Given 02/21/2000 Influenza Virus 3Yrs & Over Vital Signs Date Vital Result Comment 12/19/2018 10:00am Height 70 inches 5'10" Weight 212.00 lb BP Systolic 124 mmHg BP Diastolic 80 mmHg Pain Level 8 BMI (Body Mass Index) 30.4 kg/m2 12/04/2018 8:02am Height 70 inches 5'10" Weight 217.00 lb Heart Rate 80 /min BP Systolic Sitting 137 mmHg L arm BP Diastolic Sitting 83 mmHg L arm O2 % BldC Oximetry 98 % BMI (Body Mass Index) 31.1 kg/m2 Results Test Date Facility Test Result H/L Range Note Laboratory test 12/16/2018 [facility] Thyroxine 6.06 g/dL Low 6.09-12.[address] [place] [address] [phone] TSH (Thyroid Stim Horm) 1.41 mcIU/mL Normal 0.34-5.60 Vitamin B12 351 pg/mL Normal 180-914 1 Comp Metabolic 12/16/2018 [facility] Sodium 141 mmol/L Normal 135-145 [place] [address] [phone] Potassium 4.9 mmol/L Normal 3.5-5.0 Chloride 111 mmol/L Normal 101-111 Co2 Carbon Dioxide 23 mmol/L Normal 22-32 Anion Gap 7 mmol/L Normal 2-11 Glucose 134 mg/dL High 70-100 Blood Urea Nitrogen 36 mg/dL High 6-24 Creatinine 1.74 mg/dL High 0.67-1.17 BUN/Creatinine Ratio 20.7 High 8-20 Calcium 9.7 mg/dL Normal 8.6-10.3 Total Protein 7.2 g/dL Normal 6.4-8.9 Albumin 4.7 g/dL Normal 3.2-5.2 Globulin 2.5 g/dL Normal 2-4 Albumin/Globulin Ratio 1.9 Normal 1-3 Total Bilirubin 0.40 mg/dL Normal 0.2-1.0 Alkaline Phosphatase 72 U/L Normal 34-104 Alt 15 U/L Normal 7-52 Ast 14 U/L Normal 13-39 Egfr Non- 38.8 >60 Egfr 46.9 >60 2 Lipid Profile 12/16/2018 [facility] Triglycerides 141 mg/dL 3 (Trig/Chol/HDL) [address] [place] [address] [phone] Cholesterol 144 mg/dL 4 HDL Cholesterol 38.3 mg/dL 5 LDL Cholesterol 78 mg/dL 6 Urine Microalbumin 12/16/2018 [facility] Ur Microalbumin 109.3 mg/L Random 101 (mg/L) [place] [address] [phone] Urine Creatinine 83.70 mg/dL Urine Microalbumin/Creatinine 130.5 High <31 Basic Metabolic 12/16/2018 [facility] Sodium 141 mmol/L Normal 135-[address] [place] [address] [phone] Potassium 4.9 mmol/L Normal 3.5-5.0 Chloride 111 mmol/L Normal 101-111 Co2 Carbon Dioxide 23 mmol/L Normal 22-32 Anion Gap 7 mmol/L Normal 2-11 Glucose 134 mg/dL High 70-100 Blood Urea Nitrogen 36 mg/dL High 6-24 Creatinine 1.74 mg/dL High 0.67-1.17 BUN/Creatinine Ratio 20.7 High 8-20 Calcium 9.6 mg/dL Normal 8.6-10.3 Egfr Non- 38.8 >60 Egfr 46.9 >60 7 CBC Auto 12/16/2018 [facility] White Blood 7.7 10^3/uL Normal 3.5-10.[address] [place] [address] [phone] Red Blood Count 3.90 10^6/uL Low 4.18-5.48 Hemoglobin 11.9 g/dL Low 14.0-18.0 Hematocrit 36 % Low 42-52 Mean Corpuscular Volume 92 fL Normal 80-94 Mean Corpuscular Hemoglobin 31 pg Normal 27-31 Mean Corpuscular HGB Conc 33 g/dL Normal 31-36 Red Cell Distribution Width 15 % Normal 10-15 Platelet Count 266 10^3/uL Normal 150-450 Mean Platelet Volume 7.8 fL Normal 7.4-10.4 Abs Neutrophils 5.4 10^3/uL Normal 1.5-7.7 Abs Lymphocytes 1.4 10^3/uL Normal 1.0-4.8 Abs Monocytes 0.7 10^3/uL Normal 0-0.8 Abs Eosinophils 0.2 10^3/uL Normal 0-0.6 Abs Basophils 0.0 10^3/uL Normal 0-0.2 Abs Nucleated RBC 0.0 10^3/uL Granulocyte % 70.0 % Lymphocyte % 18.4 % Monocyte % 8.8 % Eosinophil % 2.3 % Basophil % 0.5 % Nucleated Red Blood Cells % 0.0 Laboratory test 12/16/2018 [facility] Total Protein 57 mg/dL finding [address] [place] [address] [phone] Urinalysis Profile 12/16/2018 [facility] Urine Color Yellow [address] [place], [place] [id number] [phone] Urine Appearance Cloudy Urine Specific [place] 1.011 Normal 1.010-1.030 Urine pH 6.0 Normal 5-9 Urine Urobilinogen Negative Negative Urine Ketones Negative Negative Urine Protein 1+(30 mg/dL) Abnormal Negative Urine Leukocytes 3+ Abnormal Negative Urine Blood Negative Negative * * Abnormal Negative 8 Urine Nitrite Negative Negative Urine Bilirubin Negative Negative Urine Glucose Negative Negative Urine White Blood Cell 3+(>20/hpf) Abnormal Absent Urine Red Blood Cell Absent Absent Urine Bacteria 1+ Abnormal Absent Laboratory test 12/16/2018 [facility] Creatinine Random 83.[address] Urine mg/[place] [address] [phone] Urine Culture 12/16/2018 [facility] Urine Culture SEE [address] [place] [address] BELOW [phone] Lipid Panel - 11/22/2018 [facility] Creatine Kinase(CK) 94 U/L Normal 10- JFM [address] [place], [place] [id number] [phone] Tick-Borne 11/22/2018 [facility] Anaplasma <1:64 <1: 10 Disease AB Panel [address] phagocytophilium titer 64 [place], [place] [id number] [phone] Babesiosis Evaluation <1:64 titer <1:64 11 Ehrlichia chaffeensis IgG AB <1:64 titer <1:64 12 Lyme Disease Serology Negative Negative 13 Laboratory test 11/22/2018 [facility] Fructosamine 253 mcmol/L 200 - [address] [place], [place] [address] [phone] Vitamin B12 327 pg/mL Normal 180-914 15 Vitamin D Total 25(Oh) 25.1 ng/mL Normal 20-50 16 Lyme Screen W/ Reflex To WB Negative Negative Creatinine Clearance 11/22/2018 [facility] Urine Collection [address] Time [place], [place] [id number] [phone] Urine Total Volume 2350 mL Creatinine, Serum 1.73 mg/dL High 0.51-0.95 Urine Creatinine Concentration 68.77 mg/dL Creatinine Clearance 65 mL/min Low 97-137 Total Protein 24HR 11/22/2018 [facility] Urine Collection Time [address] [place] [address] [phone] Urine Total Volume 2350 mL Urine TP Concentration 43 mg/dL Urine Total Protein/24HR 1010 mg/24Hr High 0-165 Laboratory test 11/22/2018 [facility] Hemoglobin A1c 7.1 % High 4.0-5.[address] (Glyco HGB) [place] [address] [phone] TSH (Thyroid Stim Horm) 1.22 mcIU/mL Normal 0.34-5.60 Comp Metabolic 11/22/2018 [facility] Sodium 140 mmol/L Normal 135-[address] [place] [address] [phone] Chloride 111 mmol/L Normal 101-111 Co2 Carbon [...] Egfr Non- 39.0 >60 Egfr 47.2 >60 18 Potassium 5.2 mmol/L High 3.5-5.0 Anion Gap 6 mmol/L Normal 2-11 CBC Auto 11/22/2018 [facility] White Blood 9.1 10^3/uL Normal 3.5-10.[address] [place] [address] [phone] Red Blood Count 3.94 10^6/uL Low 4.18-5.48 [...] Blood Cells % 0.0 Lipid Profile 11/22/2018 [facility] Triglycerides 89 mg/dL 19 (Trig/Chol/HDL) [address] [place] [address] [phone] Cholesterol 135 mg/dL 20 HDL Cholesterol 41.3 mg/dL 21 LDL Cholesterol 76 mg/dL 22 Laboratory 10/03/2018 [facility] Troponin-I 0.00 <0.04 23 test finding [address] (TnI) ng/[place] [address] [phone] CBC Auto Diff 10/03/2018 [facility] White Blood 8.3 Normal 3.5 -10.[address] Count 10^3/uL [place], [place] [address] [phone] Red Blood Count 3.60 10^6/uL Low 4.18-5.48 [...] Blood Cells % 0.0 Laboratory test 10/03/2018 [facility] Lactic Acid 0.6 mmol/L Normal 0.5-2.[address] [place] [address] [phone] Comp Metabolic 10/03/2018 [facility] Sodium 140 mmol/L Normal 135-[address] [place] [address] [phone] Potassium 4.9 mmol/L Normal 3.5-5.0 Co2 Carbon [...] Egfr Non- 33.8 >60 Egfr 40.9 >60 25 Chloride 114 mmol/L High 101-111 Anion Gap 3 mmol/L Normal 2-11 Laboratory 10/03/2018 [facility] Troponin-I 0.01 <0.04 [address] (TnI) ng/[place] [address] [phone] CBC Auto Diff 07/24/2018 [facility] White Blood 6.8 Normal 3.5 -10.[address] Count 10^3/[place] [address] [phone] Red Blood Count 3.93 10^6/uL Low 4.18-5.48 [...] Blood Cells % 0 Comp Metabolic 07/24/2018 [facility] Sodium 142 mmol/L Normal 135-[address] [place] [address] [phone] Potassium 4.7 mmol/L Normal 3.5-5.0 Co2 Carbon [...] Egfr Non- 53.8 >60 Egfr 65.1 >60 27 Chloride 112 mmol/L High 101-111 Anion Gap 6 mmol/L Normal 2-11 Laboratory test 07/24/2018 [facility] C Reactive 2.86 mg/L Normal <8.[address] [place] [address] [phone] 1 Normal Range 180 to 914 Indeterminate Range 145 to 180 Deficient Range <145 2 Because ethnic data is not always readily [...] 15-29 5 Kidney failure <15 (or dialysis) 3 Desirable: <150 Borderline High: 150-199 High: 200-499 Very High: >500 4 Desirable: <200 Borderline High: 200-239 High: >239 5 Low: <40 Desirable: 40-60 High: >60 6 Desirable: <100 Near Optimal: 100-129 Borderline High: 130-159 High: 160-189 Very High: >189 7 Because ethnic data is not always readily [...] 15-29 5 Kidney failure <15 (or dialysis) 8 *Ascorbic acid is present which may interfere with detection of blood. 9 SEE RESULT BELOW Name: DARIO MNACINI : [address]: Prabha Washington MD Acct: [id number] Unit: [id number] AGE: 73 Location: LAB Re12/16/18 SEX: M Status: REG REF SPEC: [id number] JAROD: 12/16/18-1226 [facility] DR: Jigar Canales MD REQ: [id number] RECD: 12/16/18-2 STATUS: [facility] DR: Prabha Washington MD PC _ SOURCE: URINE SPDESC: ORDERED: Urine Culture Procedure Result Reported Site Urine Culture Final 12/18/18- 0842 ML Organism 1 [facility] [place] Count 25-50,000 (Moderate) CFU/ML 1. [facility] FREUNDII M.I.C. RX --------- ------ Cefazolin >=64 R Cefepime <=1 S Ceftriaxone <=1 S Ciprofloxacin <=0.25 S Gentamicin <=1 S Levofloxacin <=0.12 S Meropenem <=0.25 S Nitrofurantoin <=16 S Tetracycline <=1 S Trimethoprim/Sulfamethoxazole <=20 S Amoxicillin/Clavulanic Acid R Aztreonam <=1 S Contact the Microbiology Department for any additional antibiotic reporting. * ML - Main Lab . END OF REPORT DEPARTMENT OF PATHOLOGY, [address] [place] [address] Jorge Luis Davis M.D. Director [facility] # [id number] 10 ADDITIONAL INFORMATION This test was developed using an analyte specific reagent. Its performance characteristics were determined by [facility] in a manner consistent with CLIA requirements. This test has not been cleared or approved by the U.S. Food and Drug Administration. 11 ADDITIONAL INFORMATION This test was developed using an analyte specific reagent. Its performance characteristics were determined by [facility] in a manner consistent with CLIA requirements. This test has not been cleared or approved by the U.S. Food and Drug Administration. 12 ADDITIONAL INFORMATION This test was developed using an analyte specific reagent. Its performance characteristics were determined by [facility] in a manner consistent with CLIA requirements. This test has not been cleared or approved by the U.S. Food and Drug Administration. 13 No evidence of antibodies to B. burgdorferi detected. False negative results may occur in recently infected patients (<=2 weeks) due to low or undetectable antibody levels to B. burgdorferi. If recent exposure is suspected, a second sample should be collected and tested in 2-4 weeks. Test Performed by: [facility] - [facility] [address] [place] [address] 14 Test Performed by: [facility] - [address] [address] 15 Normal Range 180 to 914 Indeterminate Range 145 to 180 Deficient Range <145 16 Total 25-Hydroxyvitamin D2 and D3 (25-OH-VitD) <10 ng/mL (severe deficiency) 10-19 ng/mL (mild to moderate deficiency) 20-50 ng/mL (optimum levels) 51-80 ng/mL (increased risk of hypercalciuria) >80 ng/mL (toxicity possible) 17 Therapeutic target for the treatment of diabetes mellitus patients is <7% HBA1C, and in selective patients <6.0%. Please refer to [employer] diabetic care guidelines for further information. 18 Because ethnic data is not always [...] 15-29 5 Kidney failure <15 (or dialysis) 19 Desirable: <150 Borderline High: 150-199 High: 200-499 Very High: >500 20 Desirable: <200 Borderline High: 200-239 High: >239 21 Low: <40 Desirable: 40-60 High: >60 22 Desirable: <100 Near Optimal: 100-129 Borderline High: 130-159 High: 160-189 Very High: >189 23 Troponin-I testing on Plasma Separator Tubes (PST) has a known false positive rate of 0.20-0.40%. All positive troponins reflex immediately to secondary confirmatory testing. Using the [employer] DxI 800 Access Immunoassay systems, the 99th percentile upper reference limit was demonstrated to be < 0.03 ng/mL. 24 [facility] Severe Sepsis and Septic Shock Management Bundle Measure requires all lactic acids initially measuring >2.0 mmol/L be repeated. 25 Because ethnic data is not always readily [...] 15-29 5 Kidney failure <15 (or dialysis) 26 Troponin-I testing on Plasma Separator Tubes (PST) has a known false positive rate of 0.20-0.40%. All positive troponins reflex immediately to secondary confirmatory testing. Using the [employer] DxI 800 Access Immunoassay systems, the 99th percentile upper reference limit was demonstrated to be < 0.03 ng/mL. 27 Because ethnic data is not always readily [...] dialysis) Procedures Date Code Description Status 11/27/2018 08529 Stress Test Completed 11/27/2018 16226 Myocardial Perfusion Imaging Tomographic (Spect) Completed Multiple Studies 11/11/2018 38820 EKG Tracing & Interpretation Completed 11/03/2018 49071 Inject/Drain Joint/Bursa Major W/O US Completed 05/15/2010 [id number] Diabetic Foot Exam Completed 04/28/2010 [id number] Diabetic Foot Exam Completed 02/28/2010 [id number] Diabetic Retinal Eye Exam Completed 04/01/2008 [id number] Diabetic Retinal Eye Exam Completed 02/26/2008 [id number] Diabetic Foot Exam Completed 02/05/2008 [id number] Diabetic Foot Exam Completed 02/25/2007 258900160 Diabetic Retinal Eye Exam Completed Medical Devices Description No Information Available Encounters Type Date Location Provider Dx Diagnosis Office Visit 11/14/2018 Kamini Reardon and Nelson Vazquez MD Z79.84 residential (current) 8:00a [facility] use of oral hypoglycemic drugs 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 M.D. 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 unsp severity M86.172 Other acute osteomyelitis, left ankle and foot Z78.9 Other specified health status Office Visit 07/15/2018 1:56p Orthopedic Joshua L97.529 Non-pressure Services Of Martir Hurt chronic ulcer ot CYunielMAngela prt left foot w unsp severity E11.621 Type 2 diabetes mellitus with foot ulcer E11.40 Type 2 diabetes mellitus with diabetic neuropathy, unsp Office Visit 07/15/2018 9:35a [facility] Terrance Nixon L03.116 Cellulitis of For Infectious Martir Bryant left lower limb Diseases L97.529 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 unsp severity E11.621 Type 2 diabetes mellitus with foot ulcer E11.69 Type 2 diabetes mellitus with other specified complication M86.9 Osteomyelitis, unspecified Office Visit 07/15/2018 [facility] Sierra L97.529 Non-pressure 9:32a keri Maria NP chronic ulcer oth Hospitalists prt left foot w unsp severity L03.116 Cellulitis of left lower limb E11.40 Type 2 diabetes mellitus with diabetic neuropathy, unsp E11.621 Type 2 diabetes mellitus with foot ulcer R50.9 Fever, unspecified Office Visit 07/14/2018 9:33a [facility] Terrance Nixon L03.116 Cellulitis of For Infectious Martir Bryant left lower limb Diseases L97.529 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 unsp severity E11.40 Type 2 diabetes mellitus with diabetic neuropathy, unsp E11.22 Type 2 diabetes mellitus w diabetic chronic kidney disease N18.3 Chronic kidney disease, stage 3 (moderate) Office Visit 07/14/2018 [facility] L97.529 Non-pressure 9:31a keri Maria MD chronic ulcer oth Hospitalists prt left [...] [facility] Services Of MD Gali apnea (adult) 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) Z68.30 Body mass index (BMI) 30.0-30.9, adult Assessments Date Code Description Provider 12/04/2018 N18.3 Chronic kidney disease, stage 3 Jigar Canales MD (moderate) 12/04/2018 E11.22 Type 2 diabetes mellitus with diabetic Jigar Canales MD chronic kidney disease 12/04/2018 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 nephropathy 11/27/2018 I25.10 Coronary atherosclerosis Noble Chen M.D. 11/27/2018 R07.89 Chest discomfort Noble Chen M.D. 11/14/2018 Z79.84 terminal gauger (current) use of oral Nelson Vazquez MD [...] M.D. 07/16/2018 L97.529 Non-pressure chronic ulcer oth prhamida Bryant M.D. left foot w unsp severity 07/16/2018 L97.529 Non-pressure chronic ulcer oth chai Saravia M.D. left foot w unsp severity 07/16/2018 E11.621 Type 2 diabetes mellitus with foot Terrance Bryant M.D. ulcer 07/16/2018 E11.69 Type 2 diabetes mellitus with other Terrance Bryant M.D. specified complication 07/16/2018 E11.621 Type 2 diabetes mellitus with foot Yadira Christy, [employer] ulcer 07/16/2018 M86.9 Osteomyelitis, unspecified Terrance Bryant M.D. 07/16/2018 L97.529 Non-pressure chronic ulcer of other Yadira Christy NP part of left foot with u 07/16/2018 E11.621 Type 2 diabetes mellitus with foot Bethany Saravia M.D. ulcer 07/16/2018 M86.172 Other acute osteomyelitis, left ankle Yadira Adina Christy NP and foot 07/16/2018 Z78.9 Other specified health status Yadira Adina Christy, MARY JO 07/16/2018 N18.3 Chronic kidney disease, stage 3 Bethany Saravia M.D. (moderate) 07/16/2018 E11.21 Type 2 diabetes mellitus with diabetic Bethany Saravia M.D. nephropathy 07/15/2018 L97.529 Non-pressure chronic ulcer of other Joshua Hurt M.D. part of left foot with unspecified severity 07/15/2018 L03.116 Cellulitis of left lower limb Terrance Bryant M.D. 07/15/2018 E11.621 Type 2 diabetes mellitus with foot Joshua Hurt M.D. ulcer 07/15/2018 L97.529 Non-pressure chronic ulcer oth prt Terrance Byrant M.D. left foot w unsp severity 07/15/2018 E11.40 Type 2 diabetes mellitus with diabetic Joshua Hurt M.D. neuropathy, unspecified 07/15/2018 E11.621 Type 2 diabetes mellitus with foot Terrance Bryant M.D. ulcer 07/15/2018 E11.69 Type 2 diabetes mellitus with other Terrance Bryant M.D. specified complication 07/15/2018 L97.529 Non-pressure chronic ulcer oth prt Sierra Delgado NP left foot w unsp severity 07/15/2018 M86.9 Osteomyelitis, unspecified Terrance Bryant M.D. 07/15/2018 L03.116 Cellulitis of left lower limb Sierra Delgado, MARY JO 07/15/2018 M86.172 Other acute osteomyelitis, left ankle Evan Seo MD and foot 07/15/2018 E11.40 Type 2 diabetes mellitus with diabetic Sierra Shortle, [employer] neuropathy, unsp 07/15/2018 E11.621 Type 2 diabetes mellitus with foot Sierra Shortle, [employer] ulcer 07/15/2018 R50.9 Fever, unspecified Sierra Shortle, [employer] 07/14/2018 L03.116 Cellulitis of left lower limb [...] Flor Talbert MD Plan of Treatment Future Appointment(s):01/16/2019 2:30 pm - KATIE Nava at [facility]12/29/2018 8:30 am - Sofya Borrego M.D. at [facility]03/04/2019 8:00 am - Jigar Canales MD at [facility] Nephrology Functional Status Description No Information Available Mental Status Description No Information Available Referrals Description No Information Available
--- NOTE | 2019-02-06 19:29 | ED ---
HPI Febrile Illness - HPI Summary HPI Summary: This pt is a 73 Y/O M presenting to [facility] with a CC of a fever that started while he was at work today at 0800 and reached a max temperature of 102 F. He states that he was at the Urgent Care center in [place] due to shakes and chills that began yesterday 02/05/19. He was diagnosed with a UTI. He had to leave work today due to his symptoms and states that he was having a hard time concentrating. He was recommended her from the Urgent care or further work ups. He states that he has myalgia that is rated 5/10 in severity. During his UC visit he had a rapid strep and an influenza test that both were negative. He denies any coughs, N/V/D, and SOB. He has no aggravating or alleviating factors. He states that he is a self cath and has a Hx of diabetes type 2. - History of Current Complaint Chief Complaint: EDFever Time Seen by Provider: 02/06/19 19:11 Hx Obtained From: Patient Onset/Duration: Started Hours Ago - 12 Time of Onset: 08:00 Timing: Constant Temperature: 102 F Initial Severity: Moderate Current Severity: Moderate Pain Intensity: 5 Pain Scale Used: 0-10 Numeric Aggravating Factors: Nothing Alleviating Factors: Nothing Associated Signs and Symptoms: Negative - coughs, N/V/D, and SOB, Chills, Myalgia - Additional Pertinent History Primary Care Physician: [id number] - Allergy/Home Medications Allergies/Adverse Reactions: Allergies Allergy/AdvReac Type Severity Reaction Status Date / Time Adhesive Tape [Silk Tape] Allergy Unknown Verified 03/09/17 18:33 Reaction Details latex Allergy Swelling Verified 04/15/18 14:17 Home Medications: Home Medications Ammonium Lactate 12% [Lac-Hydrin 12 %] 1 applic TOPICAL DAILY 02/06/19 [History Confirmed 02/06/19] Cholecalciferol (Vitamin D3) [Vitamin D3] 1,000 unit PO DAILY 02/06/19 [History Confirmed 02/06/19] Cyclobenzaprine TAB* [Flexeril 10 MG TAB*] 10 mg PO BID PRN 02/06/19 [History Confirmed 02/06/19] Gabapentin CAP(*) [Neurontin 300 CAP(*)] 600 mg PO TID 02/06/19 [History Confirmed 02/06/19] Lactobacillus Acidophilus [Probiotic Acidophilus] 1 tab PO BID 02/06/19 [ History Confirmed 02/06/19] Lisinopril TAB* [Prinivil TAB*] 5 mg PO QAM 02/06/19 [History Confirmed 02/06/19 ] Melatonin 5 mg PO BEDTIME 02/06/19 [History Confirmed 02/06/19] Metformin ER (NF) [Glucophage ER 750 MG TAB (NF)] 1,500 mg PO BEDTIME 02/06/19 [ History Confirmed 02/06/19] Metoprolol Succinate XL TAB* [Toprol XL TAB*] 25 mg PO DAILY 02/06/19 [History Confirmed 02/06/19] Multivitamins/Minerals TAB* [Theragran/minerals TAB*] 1 tab PO DAILY 02/06/19 [ History Confirmed 02/06/19] Pravastatin (NF) [Pravachol (NF)] 40 mg PO QPM 02/06/19 [History Confirmed 02/06] Vitamin E CAP* 400 unit PO DAILY 02/06/19 [History Confirmed 02/06/19] oxyCODONE/Acetamin 5/325 MG* [Percocet 5/325 TAB*] 1 tab PO BEDTIME PRN [History Confirmed 02/06/19] PMH/Surg Hx/FS Hx/Imm Hx Previously Healthy: Yes Endocrine/Hematology History: Reports: Hx Anticoagulant Therapy, Hx Diabetes - type 2 Denies: Hx Sickle Cell Disease, Hx Thyroid Disease, Hx Anemia, Hx Unexplained Bleeding Cardiovascular History: Reports: Hx Cardiomegaly, Hx Coronary Artery Disease, Hx Deep Vein Thrombosis, Hx Hypercholesterolemia, Hx Myocardial Infarction, Hx Peripheral Vascular Disease, Other Cardiovascular Problems/Disorders - cardiomegaly , Denies: Hx Aneurysm, Hx Angina, Hx Angioplasty, Hx Auto Implanted Cardiovert Defib, Hx Cardiac Arrest, Hx Congenital Heart Disease, Hx Congestive Heart Failure, Hx Embolism, Hx Hypotension, Hx Hypertension, Hx Pacemaker/ICD, Hx Rheumatic Fever, Hx Syncope, Hx Valvular Heart Disease Respiratory History: Reports: Hx Asthma, Hx Chronic Bronchitis, Hx Pneumonia, Hx Sleep Apnea, Other Respiratory Problems/Disorders - FREQUENT PNEUMONIA Denies: Hx Pulmonary Embolism, Hx Seasonal Allergies GI History: Reports: Other GI Disorders - 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 Denies: Hx Cirrhosis, Hx Crohn's Disease, Hx Diverticulosis, Hx Gall Bladder Disease, Hx Gastroesophageal Reflux Disease, Hx Gastrointestinal Bleed, Hx Hiatal Hernia, Hx Irritable Bowel, Hx Jaundice, Hx Obstructive Bowel, Hx Ileostomy, Hx Pyloric Stenosis, Hx Ulcer History: Reports: Other Problems/Disorders - Continent urinary diversion at [facility] Denies: Hx Acute Renal Failure, Hx Benign Prostatic Hyperplasia, Hx Chronic Renal Failure, Hx Dialysis, Hx Kidney Infection, Hx Kidney Stones Musculoskeletal History: Reports: Hx Arthritis, Hx Back Problems, Hx Bursitis - KNEE, Other Musculoskeletal History - osteomyleitis Denies: Hx Gout, Hx Osteoporosis, Hx Scoliosis Sensory History: Reports: Hx Contacts or Glasses Denies: Hx Hearing Aid Opthamlomology History: Reports: Hx Contacts or Glasses Neurological History: Reports: Hx Nerve Disease - diabetic neuropathy to LE, Other Neuro Impairments/Disorders - neuropathy to bilat feet Denies: Hx Seizures, Hx Spinal Cord Injury, Hx Transient Ischemic Attacks ( TIA) Psychiatric History: Denies: Hx Panic Disorder - Cancer History Cancer Type, Location and Year: prostate cancer Hx Chemotherapy: No Hx Radiation Therapy: Yes - Proton Radiation Hx Palliative Cancer Treatment: No - Surgical History Surgical History: Yes Surgery Procedure, Year, and Place: appendix, tonsils, prostatectomy, urinary incontinence diversion 2002, rt foot x9, left foot x5, hernia repair,cardiac stent 04/08/13 pt has stent card please make copy for mri scan. urostomy Hx Anesthesia Reactions: No - Immunization History Date of Influenza Vaccine: 11/2016 Infectious Disease History: No Infectious Disease History: Denies: Hx Clostridium Difficile, Hx Hepatitis, Hx Human Immunodeficiency Virus (HIV), Hx of Known/Suspected MRSA, Hx Shingles, Hx Tuberculosis, Hx Known/ Suspected VRE, Hx Known/Suspected VRSA, History Other Infectious Disease, Traveled Outside the [place] in Last 30 Days - Family History Known Family History: Positive: Blood Disorder - FMHx of blood clots , Other - neg: anaesthesia reaction - Social History Occupation: Employed Full-time Lives: Alone Alcohol Use: Weekly Alcohol Amount: 1 drink per month Hx Substance Use: No Substance Use Type: Reports: None Hx Tobacco Use: No Smoking Status (MU): Never Smoked Tobacco Have You Smoked in the Last Year: No Review of Systems Constitutional: Other - states that he is having dificulties concentrating Positive: Fever - 102 F, Chills Negative: Shortness Of Breath, Cough Negative: Vomiting, Diarrhea, Nausea Positive: Myalgia All Other Systems Reviewed And Are Negative: Yes Physical Exam - Summary Physical Exam Summary: General: Well-developed, Well-nourished obese male. No acute distress. Mild tremulous appearance HEENT: Normocephalic, Atraumatic. Eyes: Conjuctiva normal, PERRL. Ears: TMs within normal limits. Nares: (-) discharge, (-) erythema. Oropharynx: Clear, mucous membranes moist, (-) exudates. Neck: Soft, FROM, (-) lymphadenopathy, (-) thyromegaly, (-) JVD. Cardiovascular: Normal sinus rhythm, (-) murmur. Lungs: Clear to auscultation bilaterally (-) wheezes, (-) rales, (-) rhonchi. Abdomen: Soft, non-tender, non-distended, (-) organomegaly, normal bowel sounds. Back: (-) CVA tenderness Extremities: No edema. Skin: Warm, dry, (-) rash. Neuro: Alert and oriented x3, no focal deficits. Psychiatric: Mood normal, affect normal. Triage Information Reviewed: Yes Vital Signs On Initial Exam: Initial Vitals Temp Pulse Resp BP Pulse Ox 98.4 F 108 20 111/62 97 02/06/19 18:38 02/06/19 18:38 02/06/19 18:38 02/06/19 18:38 02/06/19 18:38 Vital Signs Reviewed: Yes Procedures - Sedation Patient Received Moderate/Deep Sedation with Procedure: No Diagnostics - Vital Signs Vital Signs Temp Pulse Resp BP Pulse Ox 02/06/19 19:05 97/52 02/06/19 18:38 98.4 F 108 20 111/62 97 - Laboratory Result Diagrams: 02/06/19 19:29 02/06/19 19:50 Lab Statement: Any lab studies that have been ordered have been reviewed, and results considered in the medical decision making process. Re-Evaluation - Re-Evaluation First Eval Re-Evaluation Time: 20:43 Change: Unchanged Comment: Pt's lactic acid is at a 2.7. Second Eval Re-Evaluation Time: 21:31 Change: Worse Comment: Pt states that he is still not feeling well. His temperature has increased. He agrees to a plan for admission. Course/Dx - Course Course Of Treatment: 73-year-old male with fevers and chills. Sent from urgent care, negative flu and strep throat. Found to have urinary tract infection. Chest x-ray was reported as negative. Patient given IV fluids per sepsis protocol. Rocephin. Ibuprofen. Patient continued with tachycardia. Blood pressure stable in the 110s. Persistent fever. Elevated white count and lactic. Patient referred to hospitalist for admission. Patient agreed with plan - Diagnoses Provider Diagnoses: Sepsis, UTI (urinary tract infection) - Provider Notifications Discussed Care Of Patient With: Jordan Santos Time Discussed With Above Provider: 21:32 Instructed by Provider To: Admit As Inpatient Admit/Transition Orders Completed By ED Provider: Yes Discharge ED - Sign-Out/Discharge Documenting (check all that apply): Patient Departure - admitted - Discharge Plan Condition: Stable Disposition: ADMITTED TO [facility] Referrals: Prabha Washington MD [Primary Care Provider] - - Billing Disposition and Condition Condition: STABLE Disposition: Admitted to [facility] - Attestation Statements Document Initiated by Scribe: Yes Documenting Scribe: Vito Keller Provider For Whom Scribe is Documenting (Include Credential): Dunia Marquez MD Scribe Attestation: Vito Gipson, scribed for Dunia Marquez MD on 02/06/19 at 2140. Scribe Documentation Reviewed: Yes Provider Attestation: The documentation as recorded by the Vito rawls accurately reflects the service I personally performed and the decisions made by me, Dunia Marquez MD Status of Scribe Document: Viewed
[2019-02-06] MEDS ORDERED: NS 0.9% 1000 ML** 1,000 ML IV.FLUID IV ONE (19:31)
[2019-02-06] MEDS ORDERED: cefTRIAXone(*) 1 GM in NS 0.9% 50 ML* 50 ML IVPB ONE (19:31)
[2019-02-06] MEDS ORDERED: Ibuprofen TAB* 400 MG PO ONE (19:49)
[2019-02-06 20:24] LABS: ABS Basophils 0.1 10^3/ul (0-0.2); ABS Eosinophils 0.1 10^3/ul (0-0.6); ABS Lymphocytes 0.6 10^3/ul (1.0-4.8); ABS Monocytes 0.3 10^3/ul (0-0.8); ABS Neutrophils 12.3 10^3/ul (1.5-7.7); Eosinophil % 0.8 %; Hematocrit 32 % (42-52); Hemoglobin 10.4 g/dL (14.0-18.0); Lymphocyte % 4.3 %; Mean Corpuscular HGB Conc 33 g/dL (31-36); Mean Corpuscular Hemoglobin 31 pg (27-31); Mean Corpuscular Volume 92 fL (80-94); Mean Platelet Volume 7.3 fL (7.4-10.4); Platelet Count 312 10^3/uL (150-450); Red Blood Count 3.41 10^6 /uL (4.18-5.48); Red Cell Distribution Width 13 % (10-15); White Blood Count 13.4 10^3/uL (3.5-10.8)
[2019-02-06 20:29] LABS: INR 1.13 (0.82-1.09)
[2019-02-06 20:38] LABS: Albumin 4.1 g/dL (3.2-5.2); Albumin/Globulin Ratio 1.2 (1-3); BUN/Creatinine Ratio 18.4 (8-20); EGFR African American 36.4 (>60); Globulin 3.3 g/dL (2-4); Total Bilirubin 0.3 mg/dL (0.2-1.0); Total Protein 7.4 g/dL (6.4-8.9)
[2019-02-06 20:40] LABS: Troponin I 0.01 ng/mL (<0.04)
[2019-02-06 20:57] LABS: Urine Appearance Turbid; Urine Bacteria Absent (Absent); Urine Bilirubin Negative (Negative); Urine Blood 1+ (Negative); Urine Color Yellow; Urine Glucose Negative (Negative); Urine Ketones Negative (Negative); Urine Nitrite Negative (Negative); Urine Protein 2+(100 mg/dL) (Negative); Urine Red Blood Cell 3+(>10/hpf) (Absent); Urine Specific Gravity 1.015 (1.010-1.030); Urine Urobilinogen Negative (Negative); Urine White Blood Cell 3+(>20/hpf) (Absent)
[2019-02-07] MEDS ORDERED: Vancomycin(*) 1,000 MG in NS 0.9% 250 ML* 250 ML IVPB ONE (00:15)
[2019-02-07] MEDS ORDERED: Vancomycin(*) 1,500 MG in NS 0.9% 250 ML* 250 ML IVPB ONE (00:30)
[2019-02-07] MEDS ORDERED: Vancomycin per Pharmacy* NOTE FOLLOW UP SCH (01:00)
[2019-02-07] MEDS ORDERED: Cyclobenzaprine TAB* 10 MG PO PRN (01:33)
[2019-02-07] MEDS ORDERED: oxyCODONE/Acetamin 5/325 MG* TAB PO PRN (01:33)
--- NOTE | 2019-02-07 03:23 | OP ---
Operative Report - Blank - Operative Report Date of Operation: 02/07/19 Note: OP NOTE Pre: Sepsis Post: Same Procedure: Insertion of right internal jugular vein triple lumen catheter Surgeon: MD Jg Asst: None IVF: Min EBL: min Drain: none Complication: None Findings: None Specimen: None
[2019-02-07] MEDS: Heparin VIAL(*) 5000 UNITS/ML VIAL (FIVE THOUSAND) SUBCUT SCH ×3 (05:55→21:07)
[2019-02-07] MEDS: NS 0.9% 1000 ML** 1,000 ML IV SCH ×3 (05:57→23:37)
[2019-02-07 06:06] LABS: ABS Lymphocytes 0.8 10^3/ul (1.0-4.8); ABS Monocytes 1.1 10^3/ul (0-0.8); ABS Neutrophils 14.7 10^3/ul (1.5-7.7); Eosinophil % 0.3 %; Hematocrit 25 % (42-52); Hemoglobin 8.5 g/dL (14.0-18.0); Lymphocyte % 4.9 %; Mean Corpuscular HGB Conc 34 g/dL (31-36); Mean Corpuscular Hemoglobin 31 pg (27-31); Mean Corpuscular Volume 92 fL (80-94); Platelet Count 218 10^3/uL (150-450); Red Blood Count 2.76 10^6 /uL (4.18-5.48); Red Cell Distribution Width 13 % (10-15); White Blood Count 16.7 10^3/uL (3.5-10.8)
--- NOTE | 2019-02-07 06:08 | HP ---
CC: Dr. Fareed Ugalde; Dr. Prabha Washington ADMISSION HISTORY AND PHYSICAL: DATE OF ADMISSION: 02/07/19 PRIMARY CARE PHYSICIAN: Prabha Washington M.D. CODE STATUS: Full code. HEALTHCARE PROXY: Nayeli, . CHIEF COMPLAINT: Fever and chills. 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 The patient states that he just felt confused and was not sure of what is going on and felt very shaky. The filled in the details stating that up until 2 days ago he was fine and had severe shakes and chills requiring multiple blankets as he was feeling very cold. 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 The patient otherwise denies any chest pain, any shortness of breath. He is now more alert at this point and was able to answer orientation questions appropriately. He denies any other discomfort. Denies any nausea, vomiting, or diarrhea. He did state that his urine was much more cloudy today when they straight catheterized him at the facility. His was also concerned that he does reuse his catheterization instead of using a fresh straight cath every time. The patient also noted some blood coming out of his urethra which was unusual, but no pain from the urethra. PAST MEDICAL HISTORY: As mentioned, coronary artery disease, status post stenting. 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 The patient had a fall with L3 to L5 disc herniation requiring pain medication. HOME MEDICATIONS: The patient is currently on: 1. Lac-Hydrin topical daily. 2. Percocet 5/325 mg at bedtime p.r.n. 3. Lactobacillus probiotic oral b.i.d. 4. Flexeril 10 mg p.o. b.i.d. p.r.n. 5. Vitamin E capsule 400 mg oral daily. 6. Lisinopril 5 mg every morning. 7. Symbicort 160/4.5 two puffs via inhalation b.i.d. 8. Aspirin 81 mg oral daily. 9. Fluticasone nasal spray, 2 sprays in both nares daily. 10. Pepcid 20 mg p.o. b.i.d. 11. Vitamin B12 1000 mcg oral daily. 12. Vitamin D3 1000 units oral daily. 13. Gabapentin 600 mg p.o. t.i.d. 14. Melatonin 5 mg at bedtime. 15. Toprol-XL 25 mg p.o. daily. 16. Pravastatin 40 mg every evening. 17. Nitroglycerin 0.4 mg sublingual p.r.n. 18. Multivitamin oral daily. 19. Montelukast 10 mg oral daily. 20. Glipizide 2.5 mg every morning. 21. Metformin 1500 mg p.o. at bedtime. ALLERGIES: The patient is allergic to ADHESIVE SILK TAPE and LATEX, both of which causes rash. FAMILY HISTORY: Noncontributory. 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 Experimented with drugs in college, but has not used any tobacco or any drugs for over 40 years. He rarely drinks wine. He lives with his . He is full code and is his surrogate decision maker. REVIEW OF SYSTEMS: A 14-point review of systems did not reveal any information other than the ones in the HPI. PHYSICAL EXAMINATION GENERAL: The patient is awake, alert, and oriented. He did not appear to be in any acute distress. VITAL SIGNS: In the ER, BP was noted to be fluctuant as low as 74/38, but after 4 L improved to 94/49. Temperature, T-max was noted to 100.7. Heart rate elevated at 102, respiration rate 18, saturating 93% on room air. HEAD AND NECK: Atraumatic and normocephalic. Bilateral pupils are reactive. Oral mucosa was moist. NECK: Supple. No jugular venous distention. LUNGS: Clear to auscultation bilaterally. No wheezing, rhonchi, or rales. HEART: S1, S2. Regular, tachycardia. ABDOMEN: There is a large midline scar from previous surgeries. There is a small opening in the right lateral region around the umbilicus which is the area of a false sphincter for his bladder where he sends his straight cath. EXTREMITIES: No cyanosis, clubbing, or edema. No erythema suggestive of any cellulitis. DIAGNOSTIC STUDIES/LAB DATA: CBC shows elevated white count of 13.4. Hemoglobin and hematocrit stable. Platelet count was stable. Coagulation profile shows INR of 1.13. Comprehensive metabolic panel shows mild metabolic acidosis with bicarb of 19, BUN elevated at 40, creatinine of 2.17, random glucose elevated at 218. Lactic acid was noted to be 2.7, improved to 0.5. Troponin negative. LFTs within normal limits. Urinalysis was showing 2+ protein, 1+ blood, 3+ leukocyte esterase positive. IMPRESSION: This is a 73-year-old gentleman with prostate cancer, status post resection and complicated surgeries including false bladder creation with daily straight cath per the patient, the patient does have a habit of reusing his straight cath rather than getting a fresh one, comes in with fever, tachycardia , leukocytosis, hypertension, and lactic acidosis, likely all secondary to sepsis from his urinary tract infection. ASSESSMENT AND PLAN: 1. Sepsis secondary to urinary tract infection with septic shock. We will admit the patient to the ICU. We will start this patient on vancomycin to cover any Staphylococcus aureus and the Rocephin would be continued that was already started in the ER and follow up cultures. Reviewing microbiology history, the patient does have history of Staphylococcus aureus, but it is not MRSA, and along with Citrobacter freundii was going in the urine as of December of this year. Previous urine cultures also showed growth of Pseudomonas and Enterococcus faecalis. We will follow up cultures and titrate up the antibiotics accordingly. Given his low blood pressure even after 4 L of IV fluid administration, I have discussed the case with the general surgeon regarding central line placement, who agreed to place a central line once the patient is in the ICU. I have also discussed the case with the urologist as the overall anatomy was new to me. Dr. Ugalde suggested that it is okay to place a Washington in as long as the gauge is similar to what he uses. He uses a 14- [place] straight catheter, so we used a 14-[place] Washington catheter and successfully had been able to drain some of the purulent urine. I have also requested Dr. Ugalde to see the patient tomorrow. We will also follow up a CT of the abdomen and pelvis to rule out any other causes of his sepsis. 2. History of hypertension, currently hypotensive. We will hold all BP medications. 3. History of type 2 diabetes. We will hold home diabetic medication and start the patient on fingersticks monitoring, and if elevated, we will consider sliding scale insulin. 4. History of dyslipidemia. Restart pravastatin. 5. History of diabetic neuropathy and also pain from his disc herniation. Continue his home pain medications. 6. History of asthma. Restart his nebulizers. 7. History of DVT, currently off medications. 8. DVT prophylaxis. We will start the patient on subcutaneous heparin. 9. Code status is full code. Over 2 hours of critical care time spent with coordinating care, discussing with surgeon to get central line, and repeating labs and discussing with family at beside. [id number]/[facility] #: [id number] SAMANTHA
[2019-02-07 06:25] LABS: BUN/Creatinine Ratio 18.7 (8-20); Calcium 7.4 mg/dL (8.6-10.3); EGFR African American 41.6 (>60); EGFR Non-African American 34.4 (>60); Potassium 4.3 mmol/L (3.5-5.0)
[2019-02-07] MEDS: Mometasone/Formoter 200/5 MDI INH SCH ×2 (08:50→19:10)
[2019-02-07] MEDS: Gabapentin CAP(*) 300 MG PO SCH ×3 (08:51→21:06)
[2019-02-07] MEDS: Multivitamins/Minerals TAB PO SCH (08:51)
[2019-02-07] MEDS: Vitamin E CAP* 400 UNIT PO SCH (08:51)
[2019-02-07] MEDS: Cyanocobalamin TAB* 500 MCG PO SCH (08:51)
[2019-02-07] MEDS: Montelukast Sodium TAB* 10 MG PO SCH (08:52)
[2019-02-07] MEDS: Fluticasone NASAL SPRAY 50MCG* 16 gm SPRAY BTL BOTH NARES SCH (08:52)
[2019-02-07] MEDS: Famotidine TAB* 20 MG PO SCH (08:52)
--- NOTE | 2019-02-07 11:34 | PN ---
Subjective Date of Service: 02/07/19 Interval History: Reports feeling sig better this am. BP in 70s initially after approx 7l and iv antibiotics,bp stable in the 110s Objective Active Medications: Acetaminophen (Tylenol Adult Liq*) 650 mg PO Q6H PRN PRN Reason: TEMPERATURE > 100.4 Atorvastatin Calcium (Lipitor*) 10 mg PO QPM [facility]; Protocol Cyanocobalamin (Vitamin B12 Tab*) 1,000 mcg PO DAILY [facility] Last Admin: 02/07/19 08:51 Dose: 1,000 mcg Cyclobenzaprine HCl (Flexeril Tab*) 10 mg PO BID PRN PRN Reason: PAIN - MODERATE Famotidine (Pepcid Tab*) 20 mg PO DAILY [facility] Last Admin: 02/07/19 08:52 Dose: 20 mg Fluticasone Propionate (Flonase Nasal [place] 50mcg*) 2 spray BOTH NARES DAILY [facility] Last Admin: 02/07/19 08:52 Dose: 2 spray Gabapentin (Neurontin Cap(*)) 600 mg PO TID [facility] Last Admin: 02/07/19 08:51 Dose: 600 mg Heparin Sodium (Porcine) (Heparin Vial(*)) 5,000 units SUBCUT Q8HR [facility] Last Admin: 02/07/19 05:55 Dose: 5,000 units Sodium Chloride (Ns 0.9% 1000 Ml) 1,000 mls @ 125 mls/hr IV PER RATE [facility] Last Admin: 02/07/19 05:57 Dose: 125 mls/hr Ceftriaxone Sodium 1 gm/ (Sodium Chloride) 50 mls @ 100 mls/hr IVPB Q24H [facility] Vancomycin HCl 1,500 mg/ (Sodium Chloride) 250 mls @ 166.667 mls/hr IVPB Q24H [facility] Mometasone Furoate/Formoterol Fumar (Dulera 200/5 Mdi*) 2 puff INH BID [facility]; Protocol Last Admin: 02/07/19 08:50 Dose: 2 puff Montelukast Sodium (Singulair Tab*) 10 mg PO DAILY [facility] Last Admin: 02/07/19 08:52 Dose: 10 mg Multivitamins/Minerals (Theragran/Minerals Tab*) 1 tab PO DAILY [facility] Last Admin: 02/07/19 08:51 Dose: 1 tab Oxycodone/Acetaminophen (Percocet 5/325 Tab*) 1 tab PO BEDTIME PRN PRN Reason: PAIN - MODERATE Pharmacy Consult (Vancomycin Per Pharmacy*) 1 note FOLLOW UP .VANC PER PHARMACY [facility]; Protocol Pharmacy Profile Note (Vancomycin Trough Check) 1 note FOLLOW UP 1530 ONE Stop: 02/09/19 15:31 Vitamin E (Vitamin E Cap*) 400 unit PO DAILY [facility] Last Admin: 02/07/19 08:51 Dose: 400 unit Vital Signs - 8 hr 02/07/19 02/07/19 02/07/19 03:30 03:46 03:55 Temperature 99.5 F Pulse Rate 86 87 Respiratory 22 19 Rate Blood Pressure 97/53 88/56 (mmHg) O2 Sat by Pulse 97 97 Oximetry 02/07/19 02/07/19 02/07/19 04:00 04:15 04:30 Temperature Pulse Rate 91 85 87 Respiratory 17 15 16 Rate Blood Pressure 97/53 96/58 88/53 (mmHg) O2 Sat by Pulse 97 94 95 Oximetry 02/07/19 02/07/19 02/07/19 04:45 05:00 05:33 Temperature Pulse Rate 86 85 92 Respiratory 16 17 21 Rate Blood Pressure 99/54 98/57 86/49 (mmHg) O2 Sat by Pulse 96 95 94 Oximetry 02/07/19 02/07/19 02/07/19 05:45 06:00 06:15 Temperature Pulse Rate 85 87 86 Respiratory 17 16 17 Rate Blood Pressure 97/52 99/54 100/57 (mmHg) O2 Sat by Pulse 94 94 95 Oximetry 02/07/19 02/07/19 02/07/19 06:30 07:00 07:30 Temperature Pulse Rate 88 88 84 Respiratory 18 18 20 Rate Blood Pressure 92/54 106/60 101/58 (mmHg) O2 Sat by Pulse 96 97 97 Oximetry 02/07/19 02/07/19 02/07/19 07:49 08:00 08:30 Temperature 99 F Pulse Rate 85 85 Respiratory 19 20 Rate Blood Pressure 105/61 109/60 (mmHg) O2 Sat by Pulse 98 98 Oximetry 02/07/19 09:00 Temperature Pulse Rate 88 Respiratory 19 Rate Blood Pressure 100/63 (mmHg) O2 Sat by Pulse 91 Oximetry Oxygen Devices in Use Now: None Eyes: No Scleral Icterus Ears/Nose/Mouth/Throat: NL Teeth, Lips, Gums Neck: NL Appearance and Movements; NL JVP Respiratory: Symmetrical Chest Expansion and Respiratory Effort Cardiovascular: NL Sounds; No Murmurs; No JVD Abdominal: NL Sounds; No Tenderness; No Distention, - - hayden in LQ draining clear urine Skin: No Rash or Ulcers Neurological: Alert and Oriented x 3 Result Diagrams: 02/07/19 05:43 02/07/19 05:43 Microbiology and Other Data: Microbiology 02/06/19 19:29 Aerobic Blood Culture - Preliminary Blood Venous 02/06/19 19:45 Aerobic Blood Culture - Preliminary Blood Venous Anaerobic Blood Culture - Preliminary 02/07/19 05:43 Nasal Screen MRSA (PCR) - Final Nasal Mrsa Not Detected Assess/Plan/Problems-Billing Assessment: - Patient Problems (1) Septic shock Current Visit: Yes Status: Acute Code(s): A41.9 - SEPSIS, UNSPECIFIED ORGANISM; R65.21 - SEVERE SEPSIS WITH SEPTIC SHOCK SNOMED Code(s): 89260299 Comment: Improved with 7l IVF and antibiotics Did not need pressors Appreciate surgical help with Central line placement overnight Continue Vanco and Ceftriaxone for now as improving and prelim blood culture with Strep which should be sensitive to Ceftriaxone Considered switching to Cefepime and Vanco to cover pseudomonas also in light of prior infections but as growing strep in prelim cx,will continue ceftriaxone, vanco and then will tailor antibiotics (2) Pyelonephritis Current Visit: Yes Status: Acute Code(s): N12 - TUBULO-INTERSTITIAL NEPHRITIS, NOT SPCF ACUTE OR CHRONIC SNOMED Code(s): 89499057 Comment: plan as above (3) Hydronephrosis Current Visit: Yes Status: Acute Code(s): N13.30 - UNSPECIFIED HYDRONEPHROSIS SNOMED Code(s): 35779572 Comment: ct reviewed stable follows with dr min as outpt team discussed case with dr leos overnight (4) Diabetes Current Visit: Yes Status: Acute Code(s): E11.9 - TYPE 2 DIABETES MELLITUS WITHOUT COMPLICATIONS SNOMED Code(s): 15064683 Comment: ISS
--- NOTE | 2019-02-07 11:42 | CONS ---
CC: Dr. Washington CONSULTATION NOTE: DATE OF CONSULT: 02/07/19 LOCATION: The patient is in the ICU. HISTORY OF PRESENT ILLNESS: I was asked by the hospitalist service to see this 73- year-old white male because of urosepsis. Mr. Carlton is followed in our office by Dr. Escobar. He has a complicated urological history. He was diagnosed with prostate carcinoma in 1994 and at that time underwent a radical retropubic prostatectomy in [place]. Because of positive margins, he was given a post op course of external beam radiation therapy. He had no recurrent disease, but developed significant complications from the radiation therapy with extensive urethral strictures, bladder neck contractures, and calcifications involving the urethra and the bladder neck. He was initially managed with intermittent urethral dilations; however, because of the extent of the strictures, he ended up by going to [facility] where Dr. Gallegos there performed urinary diversion with a continent pouch, leaving the wiyot bladder in place. The patient has done very well, performing intermittent catheterization of the pouch. He had good continence. Because of recurrent urethral bleeding and discharge originating from his defunctionalized urinary bladder, Dr. Escobar performed a cystoscopy, urethral dilation, and bladder biopsies on him in April 2014. Extensive strictures were again encountered, but was successfully dilated, and the washings from the bladder were negative for malignancy. The patient has continued to have urethral discharge, at times sero -sanguinous, and cloudy, but has bben asymptomatic from it. He uses a 14 Fr stiff straight catheter for self cath of the pouch. He recently has been performing less frequent self-catheterization of his continent pouch, only 3 times per day, draining about 1,000 cc with each catheterization, and has been using the same catheter for 1 week or longer. He also has recently noted some increase in the urethral drainage. The patient presented yesterday to the emergency room with high-grade fever and hypotension consistent with urosepsis. There was no associated flank or suprapubic pain. He had an elevated count and elevated serum lactic acid. Blood and urine cultures were obtained and he was started on IV antibiotics. I was called around midnight by the hospitalist service to check on the feasibility of draining his urinary pouch with a Washington catheter rather than continuing with intermittent catheterizations. I recommended the insertion of a soft Washington catheter with the same size as the straight catheter the patient uses. The patient had insertion of a 14 Washington catheter and there was drainage of a large amount of cloudy urine. Noncontrast CT of the abdomen and pelvis was then obtained. I reviewed the films. There is no hydronephrosis and no renal or ureteral calculi. There is moderate dilatation and tortuosity of both ureters, but that would be consistent with the chronic diversion he has. The pouch is drained and decompressed with the Washington. No significant reactive changes or fluid collection arund the pouch. There is no distention of his wiyot bladder, and no air in the bladder lumen or wall on the CT scan. The patient was admitted to the ICU. I saw him this morning for consultation. He is doing much better. His vital signs are back to normal. He is afebrile and he is responding very well to the treatment. He has 2 positive blood cultures so far growing gram-positive cocci. His urine culture is pending. On the physical exam, he looks very comfortable and has no complaints. He has no CVA tenderness. Abdomen is soft, non tender. There is mild degree of suprapubic tenderness. He has still some urethral discharge. He has very good urine output with clear urine. IMPRESSION: Urinary tract infection and urosepsis. I think that the 2 risk factors for this infection are the infrequent catheterizations of his pouch with more than one liter of urine volume before he catheterizes himself, plus the re-use of the same straight catheter for one week or more. MY RECOMMENDATION is to continue with the present treatment of the urosepsis, and adjust his antibiotics according to the urine and blood cultures results. Woul keep the Washington catheter in his pouch for the next 48 hours allowing for the diuresis of his recent fluid resuscitation. Following that, he should go back performing the self catheterization of the pouch as often as needed not to allow more than 500 cc of urine volume with each catheterization. I also recommend that he uses single disposable catheter each time. Will also have to watch for possible pyocystis from the residual secretions of his defunctionalized bladder. I do not think that he needs urethral catheterization and bladder irrigations at this time, especially with his recent sepsis, but he needs to be observed for that possibility. Will follow him with you as needed. Thank you. [id number]/[facility] #: [id number] SAMANTHA
--- NOTE | 2019-02-07 13:04 | OP ---
DATE OF OPERATION: 02/07/19 - ROOM #453 DATE OF : 47 SURGEON: Dilan Gregorio MD MACHINE STAMPER: None. ANESTHESIA: A 1% lidocaine plain. PRE-OP DIAGNOSIS: Sepsis. POST-OP DIAGNOSIS: Sepsis. OPERATIVE PROCEDURE: Insertion of right internal jugular vein triple-lumen catheter. ESTIMATED BLOOD LOSS: Minimal. SPECIMENS: None. WOUND CLASSIFICATION: I. COMPLICATIONS: None. DRAINS: None. FINDINGS: As per above, widely patent right internal jugular vein. BRIEF HISTORY: Mr. Jus Carlton is a 73-year-old gentleman admitted with urosepsis, requiring possible intravenous pressors for blood pressure support and central line access axis has been requested by the primary service. He has been admitted to the intensive care unit. The procedure was discussed with the patient, the risks of, but not limited to, bleeding, infection, pneumothorax, and discomfort as well as cardiac injury were all explained. DESCRIPTION OF PROCEDURE: Written informed consent was obtained. Initially, the right groin was prepped and draped in usual sterile fashion and time-out verification was completed. The placement of the ultrasound machine showed no obvious patent central vein, although I did inject some 1% lidocaine and passed a 21-gauge secret needle without blood return, and this site was aborted. Next, the right neck and chest were prepped and draped in a usual sterile fashion. The patient was placed in slight Trendelenburg position. Time-out verification was again completed. The site was marked with indelible ink. The ultrasound was then placed and the right internal jugular and right carotid arteries were identified and there appeared to be a distended internal jugular vein. A 1% lidocaine with epinephrine was infiltrated and 18-gauge Cook needle was used to puncture the internal jugular vein on the first pass with good blood return. The guidewire was inserted without difficulty. Tract was then dilated and the triple-lumen catheter was placed over the guidewire using the Seldinger technique to about 18 cm. There was good blood return from all 3 ports and they were flushed with saline. The catheter was secured to the skin with 3-0 silk sutures and covered with an occlusive dressing. Postprocedural chest x-ray showed the catheter to be in good position without evidence of pneumothorax. The patient tolerated the procedure well. [id number]/[facility] #: [id number] [facility]
[2019-02-07] MEDS ORDERED: Dextrose 50% VIAL 50 ml IV PUSH PRN (14:25)
[2019-02-07] MEDS: Vancomycin(*) 1,500 MG in NS 0.9% 250 ML* 250 ML IVPB SCH (16:35)
[2019-02-07] MEDS: Acetaminophen ADULT LIQ* 650 MG/20.3 ML UDC PO PRN (16:41)
[2019-02-07] MEDS: Insulin LISPRO* 1 UNITS UNIT SUBCUT SCH ×2 (16:41→21:06)
[2019-02-07] MEDS: Atorvastatin* 10 MG TAB PO SCH (17:59)
[2019-02-07] MEDS: cefTRIAXone(*) 1 GM in NS 0.9% 50 ML* 50 ML IVPB SCH (19:38)
[2019-02-08] MEDS: Acetaminophen ADULT LIQ* 650 MG/20.3 ML UDC PO PRN ×2 (03:29→19:22)
[2019-02-08] MEDS: Heparin VIAL(*) 5000 UNITS/ML VIAL (FIVE THOUSAND) SUBCUT SCH ×3 (05:30→22:22)
[2019-02-08 05:58] LABS: Hematocrit 26 % (42-52); Hemoglobin 8.6 g/dL (14.0-18.0); Mean Corpuscular HGB Conc 33 g/dL (31-36); Mean Corpuscular Hemoglobin 30 pg (27-31); Mean Corpuscular Volume 92 fL (80-94); Platelet Count 191 10^3/uL (150-450); Red Blood Count 2.83 10^6 /uL (4.18-5.48); Red Cell Distribution Width 13 % (10-15); White Blood Count 15.6 10^3/uL (3.5-10.8)
[2019-02-08 06:17] LABS: BUN/Creatinine Ratio 15.8 (8-20); EGFR African American 49.9 (>60); EGFR Non-African American 41.2 (>60); Potassium 4.2 mmol/L (3.5-5.0)
[2019-02-08 07:09] LABS: ABS Eosinophils 0.2 10^3/ul (0-0.6); ABS Monocytes 1.6 10^3/ul (0-0.8); ABS Neutrophils 12.8 10^3/ul (1.5-7.7); Eosinophil % 1.1 %; Lymphocyte % 6.7 %
[2019-02-08] MEDS: Insulin LISPRO* 1 UNITS UNIT SUBCUT SCH ×5 (09:02→22:19)
[2019-02-08] MEDS: Cyanocobalamin TAB* 500 MCG PO SCH (09:03)
[2019-02-08] MEDS: Famotidine TAB* 20 MG PO SCH (09:03)
[2019-02-08] MEDS: Gabapentin CAP(*) 300 MG PO SCH ×3 (09:03→22:20)
[2019-02-08] MEDS: Multivitamins/Minerals TAB PO SCH (09:04)
[2019-02-08] MEDS: Vitamin E CAP* 400 UNIT PO SCH (09:04)
[2019-02-08] MEDS: Montelukast Sodium TAB* 10 MG PO SCH (09:04)
[2019-02-08] MEDS: Mometasone/Formoter 200/5 MDI INH SCH ×2 (09:20→19:19)
[2019-02-08] MEDS ORDERED: Saline NASAL SPRAY 0.65%* BTL BOTH NARES PRN (10:23)
[2019-02-08] MEDS: Fluticasone NASAL SPRAY 50MCG* 16 gm SPRAY BTL BOTH NARES SCH (10:34)
[2019-02-08 13:33] LABS: ABS Eosinophils 0.1 10^3/ul (0-0.6); ABS Lymphocytes 1.1 10^3/ul (1.0-4.8); ABS Monocytes 1.3 10^3/ul (0-0.8); Eosinophil % 0.6 %; Hematocrit 28 % (42-52); Hemoglobin 9.4 g/dL (14.0-18.0); Lymphocyte % 6.9 %; Mean Corpuscular HGB Conc 33 g/dL (31-36); Mean Corpuscular Hemoglobin 30 pg (27-31); Mean Corpuscular Volume 91 fL (80-94); Platelet Count 217 10^3/uL (150-450); Red Blood Count 3.09 10^6 /uL (4.18-5.48); Red Cell Distribution Width 13 % (10-15); White Blood Count 16.5 10^3/uL (3.5-10.8)
[2019-02-08] MEDS: Vancomycin(*) 1,500 MG in NS 0.9% 250 ML* 250 ML IVPB SCH (15:44)
--- NOTE | 2019-02-08 15:52 | PN ---
Subjective Date of Service: 02/08/19 Interval History: Reports feeling sig better compared to when he came in. BP stable, Still febrile and wbc elevated. Objective Active Medications: Acetaminophen (Tylenol Adult Liq*) 650 mg PO Q6H PRN PRN Reason: TEMPERATURE > 100.4 Last Admin: 02/08/19 03:29 Dose: 650 mg Atorvastatin Calcium (Lipitor*) 10 mg PO QPM [facility]; Protocol Last Admin: 02/07/19 17:59 Dose: 10 mg Cyanocobalamin (Vitamin B12 Tab*) 1,000 mcg PO DAILY [facility] Last Admin: 02/08/19 09:03 Dose: 1,000 mcg Cyclobenzaprine HCl (Flexeril Tab*) 10 mg PO BID PRN PRN Reason: PAIN - MODERATE Dextrose (Dextrose 50% Vial 50 Ml*) 25 ml IV PUSH .FOR FS < 60 - SS PRN PRN Reason: FS < 60 Famotidine (Pepcid Tab*) 20 mg PO DAILY [facility] Last Admin: 02/08/19 09:03 Dose: 20 mg Fluticasone Propionate (Flonase Nasal [place] 50mcg*) 2 spray BOTH NARES DAILY [facility] Last Admin: 02/08/19 10:34 Dose: 2 spray Gabapentin (Neurontin Cap(*)) 600 mg PO TID [facility] Last Admin: 02/08/19 14:11 Dose: 600 mg Heparin Sodium (Porcine) (Heparin Vial(*)) 5,000 units SUBCUT Q8HR [facility] Last Admin: 02/08/19 14:11 Dose: 5,000 units Ceftriaxone Sodium 1 gm/ (Sodium Chloride) 50 mls @ 100 mls/hr IVPB Q24H [facility] Last Admin: 02/07/19 19:38 Dose: 100 mls/hr Vancomycin HCl 1,500 mg/ (Sodium Chloride) 250 mls @ 166.667 mls/hr IVPB Q24H [facility] Last Admin: 02/08/19 15:44 Dose: 166.667 mls/hr Insulin Human Lispro (Humalog*) 0 units SUBCUT FS ACHS ICU [facility]; Protocol Last Admin: 02/08/19 13:05 Dose: 4 unit Mometasone Furoate/Formoterol Fumar (Dulera 200/5 Mdi*) 2 puff INH BID [facility]; Protocol Last Admin: 02/08/19 09:20 Dose: 2 puff Montelukast Sodium (Singulair Tab*) 10 mg PO DAILY [facility] Last Admin: 02/08/19 09:04 Dose: 10 mg Multivitamins/Minerals (Theragran/Minerals Tab*) 1 tab PO DAILY [facility] Last Admin: 02/08/19 09:04 Dose: 1 tab Oxycodone/Acetaminophen (Percocet 5/325 Tab*) 1 tab PO BEDTIME PRN PRN Reason: PAIN - MODERATE Pharmacy Consult (Vancomycin Per Pharmacy*) 1 note FOLLOW UP .VANC PER PHARMACY [facility]; Protocol Pharmacy Profile Note (Vancomycin Trough Check) 1 note FOLLOW UP 1530 ONE Stop: 02/09/19 15:31 Sodium Chloride (Sodium Chloride 0.65% Nasal [place]*) 2 spray BOTH NARES QID PRN PRN Reason: CONGESTION Vitamin E (Vitamin E Cap*) 400 unit PO DAILY [facility] Last Admin: 02/08/19 09:04 Dose: 400 unit Vital Signs - 8 hr 02/08/19 02/08/19 02/08/19 08:00 08:30 08:33 Temperature 99.7 F Pulse Rate 96 99 Respiratory 21 25 Rate Blood Pressure 115/65 113/68 (mmHg) O2 Sat by Pulse 95 95 Oximetry 02/08/19 02/08/19 02/08/19 09:00 10:00 10:24 Temperature Pulse Rate 104 99 100 Respiratory 35 27 28 Rate Blood Pressure 120/64 141/86 (mmHg) O2 Sat by Pulse 94 100 98 Oximetry 02/08/19 02/08/19 02/08/19 11:00 11:27 12:00 Temperature 99.6 F Pulse Rate 102 94 Respiratory 27 21 Rate Blood Pressure (mmHg) O2 Sat by Pulse 93 97 Oximetry 02/08/19 02/08/19 02/08/19 13:00 13:26 14:00 Temperature Pulse Rate 105 104 Respiratory 26 24 24 Rate Blood Pressure 148/62 (mmHg) O2 Sat by Pulse 96 92 Oximetry Oxygen Devices in Use Now: None Eyes: No Scleral Icterus Ears/Nose/Mouth/Throat: NL Teeth, Lips, Gums Neck: NL Appearance and Movements; NL JVP Respiratory: Symmetrical Chest Expansion and Respiratory Effort, Clear to Auscultation Abdominal: NL Sounds; No Tenderness; No Distention, - - hayden bag empty.repositioned Extremities: No Edema Neurological: Alert and Oriented x 3 Result Diagrams: 02/08/19 13:15 02/08/19 05:30 Microbiology and Other Data: Microbiology 02/06/19 19:29 Aerobic Blood Culture - Preliminary Blood Venous 02/06/19 19:45 Aerobic Blood Culture - Preliminary Blood Venous Anaerobic Blood Culture - Preliminary 02/07/19 05:43 Nasal Screen MRSA (PCR) - Final Nasal Mrsa Not Detected Assess/Plan/Problems-Billing Assessment: - Patient Problems (1) Septic shock Current Visit: Yes Status: Acute Code(s): A41.9 - SEPSIS, UNSPECIFIED ORGANISM; R65.21 - SEVERE SEPSIS WITH SEPTIC SHOCK SNOMED Code(s): 73157256 Comment: Improved with 7l IVF and antibiotics Did not need pressors Central line placed overnight on admission Continue Vanco and Ceftriaxone for now as improving and prelim blood culture with Strep which should be sensitive to Ceftriaxone Considered stopping Vanco and continuing ceftriaxone versus switching to ampicillin as pt growing strep agalactiae but wbc still high and per d/w lab sensitivity should be back tomorrow. Will continue the same for now and switch tomorrow once sensivity available to avoid freq antibiotic switches. Bp stabilized.Clinically improving Recheck Blood culture Check Echo to r/o endocarditis source urine discussed with pt to use disposable catheters for self cath as pt using same cath for 1 week and also importance to avoid stagnation of urine and to switch ti freq cath to avoid infections echo pending ID to be consulted tomorrow (2) Pyelonephritis Current Visit: Yes Status: Acute Code(s): N12 - TUBULO-INTERSTITIAL NEPHRITIS, NOT SPCF ACUTE OR CHRONIC SNOMED Code(s): 01445268 Comment: plan as above (3) Hydronephrosis Current Visit: Yes Status: Acute Code(s): N13.30 - UNSPECIFIED HYDRONEPHROSIS SNOMED Code(s): 20735475 Comment: ct reviewed stable follows with dr min as outpt appreciate urology input hayden for 48h and then switch to self cath (4) Diabetes Current Visit: Yes Status: Acute Code(s): E11.9 - TYPE 2 DIABETES MELLITUS WITHOUT COMPLICATIONS SNOMED Code(s): 54683676 Comment: ISS
[2019-02-08] MEDS: Atorvastatin* 10 MG TAB PO SCH (18:02)
--- NOTE | 2019-02-08 19:19 | PN ---
Hospitalist Progress Note Date of Service: 02/08/19 HOSPITALIST ADDENDUM Called by RN because patient is febrile (T 102) and tachycardic. Known sepsis of urinary source, cultures growing strep. As per Urology, risk factors are infrequent self catheterizations and reusing catheters. Will check repeat blood cultures, CBC, BMP, LA. Continue current antibiotics. Per RN, IVF were discontinued earlier due to shortness of breath.
[2019-02-08] MEDS: cefTRIAXone(*) 1 GM in NS 0.9% 50 ML* 50 ML IVPB SCH (20:04)
[2019-02-08 20:25] LABS: Hematocrit 27 % (42-52); Hemoglobin 8.9 g/dL (14.0-18.0); Mean Corpuscular HGB Conc 34 g/dL (31-36); Mean Corpuscular Hemoglobin 30 pg (27-31); Mean Corpuscular Volume 91 fL (80-94); Mean Platelet Volume 7.4 fL (7.4-10.4); Platelet Count 202 10^3/uL (150-450); Red Blood Count 2.93 10^6 /uL (4.18-5.48); Red Cell Distribution Width 13 % (10-15); White Blood Count 15.6 10^3/uL (3.5-10.8)
[2019-02-08 20:28] LABS: ABS Eosinophils 0.1 10^3/ul (0-0.6); ABS Lymphocytes 1.2 10^3/ul (1.0-4.8); ABS Monocytes 1.8 10^3/ul (0-0.8); ABS Neutrophils 12.5 10^3/ul (1.5-7.7); Eosinophil % 0.5 %; Lymphocyte % 7.8 %
[2019-02-08 20:40] LABS: BUN/Creatinine Ratio 14.9 (8-20); Calcium 8.4 mg/dL (8.6-10.3); EGFR African American 44.8 (>60); Potassium 4.3 mmol/L (3.5-5.0)
[2019-02-08] MEDS ORDERED: NS 0.9% 500 ML* 500 ML IV ONE (21:30)
[2019-02-09] MEDS: Heparin VIAL(*) 5000 UNITS/ML VIAL (FIVE THOUSAND) SUBCUT SCH ×3 (05:16→21:14)
[2019-02-09 05:18] LABS: Hematocrit 26 % (42-52); Hemoglobin 8.7 g/dL (14.0-18.0); Mean Corpuscular HGB Conc 34 g/dL (31-36); Mean Corpuscular Hemoglobin 31 pg (27-31); Mean Corpuscular Volume 90 fL (80-94); Mean Platelet Volume 7.3 fL (7.4-10.4); Platelet Count 213 10^3/uL (150-450); Red Blood Count 2.85 10^6 /uL (4.18-5.48); Red Cell Distribution Width 13 % (10-15); White Blood Count 13.9 10^3/uL (3.5-10.8)
[2019-02-09 05:23] LABS: ABS Eosinophils 0.2 10^3/ul (0-0.6); ABS Lymphocytes 1.3 10^3/ul (1.0-4.8); ABS Monocytes 1.8 10^3/ul (0-0.8); ABS Neutrophils 10.6 10^3/ul (1.5-7.7); Eosinophil % 1.7 %; Lymphocyte % 9.5 %
[2019-02-09 05:34] LABS: BUN/Creatinine Ratio 15.5 (8-20); Calcium 8.4 mg/dL (8.6-10.3); EGFR African American 51.3 (>60); EGFR Non-African American 42.4 (>60); Potassium 4.2 mmol/L (3.5-5.0)
[2019-02-09] MEDS: Cyanocobalamin TAB* 500 MCG PO SCH (08:34)
[2019-02-09] MEDS: Vitamin E CAP* 400 UNIT PO SCH (08:34)
[2019-02-09] MEDS: Multivitamins/Minerals TAB PO SCH (08:35)
[2019-02-09] MEDS: Montelukast Sodium TAB* 10 MG PO SCH (08:35)
[2019-02-09] MEDS: Gabapentin CAP(*) 300 MG PO SCH ×3 (08:36→21:14)
[2019-02-09] MEDS: Famotidine TAB* 20 MG PO SCH (08:36)
[2019-02-09] MEDS: Insulin LISPRO* 1 UNITS UNIT SUBCUT SCH ×4 (08:37→21:45)
[2019-02-09] MEDS: Mometasone/Formoter 200/5 MDI INH SCH ×2 (09:22→19:50)
[2019-02-09] MEDS: Fluticasone NASAL SPRAY 50MCG* 16 gm SPRAY BTL BOTH NARES SCH (10:23)
--- NOTE | 2019-02-09 13:03 | ECHO ---
*[facility]* [place] [address] Fax #: [phone] Transthoracic Echocardiogram Patient: Jus Carlton : 1945 Study Date: 02/09/2019 Age: 73 Gender: M HR: 97 bpm Height: 70 in /177.8 cm BSA: 2.22 m^2 Weight: 230.5 lb /104.8 kg BMI: 33.1 kg/m^2 *Cake Puncher: * Rita Stewart [facility] *Referring Physician: * Milly Michaels *Reading Physician: * Mak Boswell MD Indications: Bacteremia. History: Coronary artery disease. Chronic renal disease. Risk factors: Hypertension. Diabetes mellitus. Dyslipidemia. Labs, prior tests, procedures, and surgery: Catheterization. There was a stenosis which was treated with a stent. Conclusions Summary: - Left ventricle: Systolic function is normal. The estimated ejection fraction is 55-60%. Wall motion is normal; there are no regional wall motion abnormalities. - Mitral valve: There is no significant regurgitation. - Aortic valve: There is no evidence of a vegetation. There is no evidence of stenosis. There is no significant regurgitation. - Tricuspid valve: There is no significant regurgitation. - Pericardium, extracardiac: There is no significant pericardial effusion. - Pulmonary arteries: Systolic pressure can not be accurately estimated. - Compared to study of 04/16/18, there is little change. Study data: Transthoracic echocardiogram. Procedure: Transthoracic echocardiography was performed. Image quality was fair. Complete 2D, spectral Doppler, and color flow Doppler. Location: Bedside. Patient status: Inpatient. Patient room number: 453. Rhythm: Normal sinus rhythm. Findings Left ventricle: The cavity size is normal. Wall thickness is mildly increased. Systolic function is normal. The estimated ejection fraction is 55-60%. Wall motion is normal; there are no regional wall motion abnormalities. There is no consistent Doppler evidence of clinically significant diastolic dysfunction. Right ventricle: The cavity size is normal. Wall thickness is mildly increased. Systolic function is normal. Left atrium: The atrium is normal in size. Right atrium: The atrium is normal in size. Mitral valve: The leaflets are normal thickness. There is no evidence of a vegetation. There is no evidence of stenosis. There is no significant regurgitation. Aortic valve: The valve is trileaflet. The leaflets are normal thickness. There is no evidence of a vegetation. There is no evidence of stenosis. There is no significant regurgitation. Tricuspid valve: The leaflets are normal thickness. There is no evidence of a vegetation. There is no evidence of stenosis. There is no significant regurgitation. Pulmonic valve: The leaflets are normal thickness. There is no evidence of a vegetation. There is no evidence of stenosis. There is trace regurgitation. Aorta: Aortic root: The aortic root is mildly dilated. Ascending aorta: The ascending aorta is appears normal. Aortic arch: The aortic arch is appears normal. Pericardium: There is no significant pericardial effusion. Pulmonary arteries: The main pulmonary artery is normal-sized. Systolic pressure can not be accurately estimated. Systemic veins: Inferior vena cava: The vessel is normal in size. There is (>= 50%) respiratory change in the IVC dimension. Measurements Left ventricle Value Ref Aortic valve Value Ref FUNMILAYO, LAX 5.5 cm 4.2 - 5.8 Mamadou diam, ED 2.6 cm ---- ESD, LAX 3.8 cm 2.5 - 4.0 Peak v, S 1.27 m/sec ---- FS, LAX 31 % 25 - 43 VTI, S 23.0 cm ---- PW, ED, LAX (H) 1.1 cm 0.6 - 1.0 Mean grad, S 3.0 mm Hg ---- EF 59 % 52 - 72 Peak grad, S 6.0 mm Hg ---- E', lat mamadou, TDI (L) 8.7 cm/sec >=10.0 E/e', lat mamadou, 6 Mitral valve Value Ref TDI Peak E 0.56 m/sec ---- E', med mamadou, TDI 8.2 cm/sec >=7.0 Peak A 1.09 m/sec ---- E/e', med mamadou, 7 Decel time 95 ms ---- TDI Peak E/A ratio 0.5 ---- E', avg, TDI 8.5 cm/sec E/e', avg, TDI 7 <=14 Pulmonic valve Value Ref Peak v, S 0.86 m/sec ---- LVOT Value Ref Peak grad, S 3.0 mm Hg ---- Peak jeimy, S 1.03 m/sec Mean grad, S 2 mm Hg Aortic root Value Ref Root diam 3.8 cm <4.3 Ventricular septum Value Ref IVS, ED (H) 1.1 cm 0.6 - 1.0 Ascending aorta Value Ref AAo AP diam, S 3.3 cm ---- Right ventricle Value Ref FUNMILAYO, LAX 3.0 cm Aortic arch Value Ref FUNMILAYO minor ax, A4C (H) 4.1 cm 1.9 - 3.5 Arch diam 3.4 cm ---- mid Decending aorta Value Ref Left atrium Value Ref Toribio peak jeimy 0.76 m/sec ---- AP dim, ES (H) 5.20 cm 3.00 - 4.00 Inferior vena cava Value Ref ML dim, A4C 4.9 cm Diam 2.1 cm ---- SI dim, A4C 5.9 cm Vol/bsa, ES, A/L 30 ml/m^2 16 - 34 Right atrium Value Ref SI dim, ES 4.5 cm 3.4 - 5.3 ML dim, ES, A4C 4.1 cm 2.6 - 4.4 Estimated RAP 8 mm Hg Legend: (L) and (H) last values outside specified reference range. Prepared and electronically signed by Mak Boswell MD 02/09/2019 13:03
[2019-02-09] MEDS ORDERED: Vancomycin Trough Check NOTE FOLLOW UP ONE (15:30)
--- NOTE | 2019-02-09 16:14 | PN ---
Subjective Date of Service: 02/09/19 Interval History: Pt is feeling much better today. He states even last evening he still felt poorly. He had a fever last night. He does have lower pelvic pressure/ discomfort. Objective Active Medications: Acetaminophen (Tylenol Adult Liq*) 650 mg PO Q6H PRN PRN Reason: TEMPERATURE > 100.4 Last Admin: 02/08/19 19:22 Dose: 650 mg Atorvastatin Calcium (Lipitor*) 10 mg PO QPM [facility]; Protocol Last Admin: 02/08/19 18:02 Dose: 10 mg Cyanocobalamin (Vitamin B12 Tab*) 1,000 mcg PO DAILY [facility] Last Admin: 02/09/19 08:34 Dose: 1,000 mcg Cyclobenzaprine HCl (Flexeril Tab*) 10 mg PO BID PRN PRN Reason: PAIN - MODERATE Dextrose (Dextrose 50% Vial 50 Ml*) 25 ml IV PUSH .FOR FS < 60 - SS PRN PRN Reason: FS < 60 Famotidine (Pepcid Tab*) 20 mg PO DAILY [facility] Last Admin: 02/09/19 08:36 Dose: 20 mg Fluticasone Propionate (Flonase Nasal [place] 50mcg*) 2 spray BOTH NARES DAILY [facility] Last Admin: 02/09/19 10:23 Dose: 2 spray Gabapentin (Neurontin Cap(*)) 600 mg PO TID [facility] Last Admin: 02/09/19 14:33 Dose: 600 mg Heparin Sodium (Porcine) (Heparin Vial(*)) 5,000 units SUBCUT Q8HR [facility] Last Admin: 02/09/19 14:34 Dose: 5,000 units Heparin Sodium (Porcine) (Heparin Flush Picc/Ml/Cvc(*)) 1 ml FLUSH 0600,1800 [facility]; Protocol Last Admin: 02/09/19 05:16 Dose: 3 ml Ceftriaxone Sodium 1 gm/ (Sodium Chloride) 50 mls @ 100 mls/hr IVPB Q24H [facility] Last Admin: 02/08/19 20:04 Dose: 100 mls/hr Vancomycin HCl 1,500 mg/ (Sodium Chloride) 250 mls @ 166.667 mls/hr IVPB Q24H [facility] Last Admin: 02/08/19 15:44 Dose: 166.667 mls/hr Insulin Human Lispro (Humalog*) 0 units SUBCUT ACHS [facility]; Protocol Last Admin: 02/09/19 12:19 Dose: 4 units Mometasone Furoate/Formoterol Fumar (Dulera 200/5 Mdi*) 2 puff INH BID [facility]; Protocol Last Admin: 02/09/19 09:22 Dose: Not Given Montelukast Sodium (Singulair Tab*) 10 mg PO DAILY [facility] Last Admin: 02/09/19 08:35 Dose: 10 mg Multivitamins/Minerals (Theragran/Minerals Tab*) 1 tab PO DAILY [facility] Last Admin: 02/09/19 08:35 Dose: 1 tab Oxycodone/Acetaminophen (Percocet 5/325 Tab*) 1 tab PO BEDTIME PRN PRN Reason: PAIN - MODERATE Pharmacy Consult (Vancomycin Per Pharmacy*) 1 note FOLLOW UP .VANC PER PHARMACY [facility]; Protocol Sodium Chloride (Sodium Chloride 0.65% Nasal [place]*) 2 spray BOTH NARES QID PRN PRN Reason: CONGESTION Vitamin E (Vitamin E Cap*) 400 unit PO DAILY [facility] Last Admin: 02/09/19 08:34 Dose: 400 unit Vital Signs - 8 hr 02/09/19 02/09/19 02/09/19 08:36 11:36 14:33 Temperature 98.7 F Pulse Rate 100 Respiratory 20 20 18 Rate Blood Pressure 117/59 (mmHg) O2 Sat by Pulse 99 Oximetry Oxygen Devices in Use Now: None Appearance: Elderly male sitting up in bed, NAD Eyes: No Scleral Icterus Ears/Nose/Mouth/Throat: Mucous Membranes Moist Respiratory: Symmetrical Chest Expansion and Respiratory Effort, Clear to Auscultation Cardiovascular: NL Sounds; No Murmurs; No JVD, RRR, - - trace LE edema Abdominal: NL Sounds; No Tenderness; No Distention Extremities: No Clubbing, Cyanosis Skin: No Nodules or Sclerosis Neurological: Alert and Oriented x 3 Result Diagrams: 02/09/19 05:05 02/09/19 05:05 Microbiology and Other Data: Microbiology 02/06/19 19:29 Aerobic Blood Culture - Preliminary Blood Venous 02/06/19 19:45 Aerobic Blood Culture - Preliminary Blood Venous Anaerobic Blood Culture - Preliminary 02/07/19 05:43 Nasal Screen MRSA (PCR) - Final Nasal Mrsa Not Detected Assess/Plan/Problems-Billing Mr Carlton is a 73 yo M who has a h/o prostate cancer s/p prostatectomy and XRT who developed severe uretheral strictures requiring continent pouch be created which he straight catheterizes TID who presented to the ER with c/o fever and chills and was admitted for septic shock secondary to urinary source. - Patient Problems (1) Septic shock Current Visit: Yes Status: Acute Code(s): A41.9 - SEPSIS, UNSPECIFIED ORGANISM; R65.21 - SEVERE SEPSIS WITH SEPTIC SHOCK SNOMED Code(s): 94197535 Comment: Resolved after aggressive IVF hydration. He did not require pressors. Central line out. (2) Pyelonephritis Current Visit: Yes Status: Acute Code(s): N12 - TUBULO-INTERSTITIAL NEPHRITIS, NOT SPCF ACUTE OR CHRONIC SNOMED Code(s): 23625156 Comment: Likely secondary to too infrequent catheterization and reusing catheters. Urine grew Grp B strep. Will continue ceftriaxone through tonight. If stable tomorrow can consider switching to oral Abx. (3) Hydronephrosis Current Visit: Yes Status: Acute Code(s): N13.30 - UNSPECIFIED HYDRONEPHROSIS SNOMED Code(s): 09334368 Comment: Pt still with hayden in the pouch. Will remove tomorrow am. Pt then to self catheterize at an increased frequency. Follow up with Dr. Escobar as outpaitent. (4) CKD (chronic kidney disease) stage 3, GFR 30-59 ml/min Current Visit: Yes Status: Chronic Code(s): N18.3 - CHRONIC KIDNEY DISEASE, STAGE 3 (MODERATE) SNOMED Code(s): 006102412 Comment: Pt with likely stage III CKD secondary to diabetic nephropathy and possibly hydronephrosis. Creatinine was up on admission likely related to his septic shock and hydroneprhosis. This has trended down. Continue to monitor renal function. (5) Diabetes mellitus type 2 Current Visit: Yes Status: Chronic Code(s): E11.9 - TYPE 2 DIABETES MELLITUS WITHOUT COMPLICATIONS SNOMED Code(s): 12153438 Comment: Blood sugars are mild-moderately elevatedHold oral medications and continue lispro sliding scale. (6) Diabetic neuropathy Current Visit: Yes Status: Chronic Code(s): E11.40 - TYPE 2 DIABETES MELLITUS WITH DIABETIC NEUROPATHY, UNSP SNOMED Code(s): 574749393 Comment: Continue gabapentin at home dose. (7) CAD (coronary artery disease) Current Visit: Yes Status: Chronic Code(s): I25.10 - ATHSCL HEART DISEASE OF [place] CORONARY ARTERY W/O ANG PCTRS SNOMED Code(s): 33073182 Comment: Stable and without complaints of chest pain. Resume aspirin, metoprolol and statin. (8) DVT prophylaxis Current Visit: Yes Status: Acute Code(s): CSE5444 - SNOMED Code(s): 819569811 Comment: SQ heparin (9) Full code status Current Visit: Yes Status: Acute Code(s): Z78.9 - OTHER SPECIFIED HEALTH STATUS SNOMED Code(s): 911803024
[2019-02-09] MEDS: Vancomycin(*) 1,500 MG in NS 0.9% 250 ML* 250 ML IVPB SCH (16:40)
[2019-02-09] MEDS: Atorvastatin* 10 MG TAB PO SCH (17:34)
[2019-02-09] MEDS: Acetaminophen ADULT LIQ* 650 MG/20.3 ML UDC PO PRN (21:10)
[2019-02-09] MEDS: cefTRIAXone(*) 1 GM in NS 0.9% 50 ML* 50 ML IVPB SCH (21:32)
[2019-02-10] MEDS: Heparin VIAL(*) 5000 UNITS/ML VIAL (FIVE THOUSAND) SUBCUT SCH ×3 (06:07→21:24)
[2019-02-10] MEDS: Acetaminophen ADULT LIQ* 650 MG/20.3 ML UDC PO PRN (06:14)
[2019-02-10 07:12] LABS: ABS Eosinophils 0.4 10^3/ul (0-0.6); ABS Lymphocytes 1.3 10^3/ul (1.0-4.8); ABS Monocytes 1.3 10^3/ul (0-0.8); ABS Neutrophils 9.3 10^3/ul (1.5-7.7); Eosinophil % 3.6 %; Hematocrit 26 % (42-52); Hemoglobin 8.9 g/dL (14.0-18.0); Lymphocyte % 10.3 %; Mean Corpuscular HGB Conc 34 g/dL (31-36); Mean Corpuscular Hemoglobin 31 pg (27-31); Mean Corpuscular Volume 89 fL (80-94); Mean Platelet Volume 7.3 fL (7.4-10.4); Platelet Count 241 10^3/uL (150-450); Red Blood Count 2.92 10^6 /uL (4.18-5.48); Red Cell Distribution Width 13 % (10-15); White Blood Count 12.4 10^3/uL (3.5-10.8)
[2019-02-10 07:31] LABS: BUN/Creatinine Ratio 18.4 (8-20); EGFR African American 52.4 (>60); EGFR Non-African American 43.3 (>60); Potassium 4.1 mmol/L (3.5-5.0)
[2019-02-10] MEDS: Mometasone/Formoter 200/5 MDI INH SCH ×2 (08:48→20:37)
[2019-02-10] MEDS: Vitamin E CAP* 400 UNIT PO SCH (08:56)
[2019-02-10] MEDS: Multivitamins/Minerals TAB PO SCH (08:57)
[2019-02-10] MEDS: Metoprolol Succinate XL TAB* 25 MG PO SCH (08:57)
[2019-02-10] MEDS: Gabapentin CAP(*) 300 MG PO SCH ×3 (08:57→21:23)
[2019-02-10] MEDS: Aspirin EC TAB* 81 MG TAB.EC PO SCH (08:57)
[2019-02-10] MEDS: Montelukast Sodium TAB* 10 MG PO SCH (08:57)
[2019-02-10] MEDS: Famotidine TAB* 20 MG PO SCH (08:57)
[2019-02-10] MEDS: Fluticasone NASAL SPRAY 50MCG* 16 gm SPRAY BTL BOTH NARES SCH (08:58)
[2019-02-10] MEDS: Cyanocobalamin TAB* 500 MCG PO SCH (08:58)
[2019-02-10] MEDS: Insulin LISPRO* 1 UNITS UNIT SUBCUT SCH ×4 (08:58→21:24)
[2019-02-10] MEDS ORDERED: Lisinopril TAB* 5 MG PO SCH (09:00)
[2019-02-10] MEDS ORDERED: Metoprolol Succinate XL TAB* 25 MG PO SCH (09:00)
--- NOTE | 2019-02-10 10:51 | PN ---
Subjective Date of Service: 02/10/19 Interval History: Pt is feeling much better today. He has not ambulated much because he is not supposed to walk without shoes on. He has had no diarrhea. He continues to have drainage from the penis. Objective Active Medications: Acetaminophen (Tylenol Adult Liq*) 650 mg PO Q6H PRN PRN Reason: TEMPERATURE > 100.4 Last Admin: 02/10/19 06:14 Dose: 650 mg Aspirin (Aspirin Ec Tab*) 81 mg PO DAILY [facility] Last Admin: 02/10/19 08:57 Dose: 81 mg Atorvastatin Calcium (Lipitor*) 10 mg PO QPM [facility]; Protocol Last Admin: 02/09/19 17:34 Dose: 10 mg Cyanocobalamin (Vitamin B12 Tab*) 1,000 mcg PO DAILY [facility] Last Admin: 02/10/19 08:58 Dose: 1,000 mcg Cyclobenzaprine HCl (Flexeril Tab*) 10 mg PO BID PRN PRN Reason: PAIN - MODERATE Dextrose (Dextrose 50% Vial 50 Ml*) 25 ml IV PUSH .FOR FS < 60 - SS PRN PRN Reason: FS < 60 Famotidine (Pepcid Tab*) 20 mg PO DAILY [facility] Last Admin: 02/10/19 08:57 Dose: 20 mg Fluticasone Propionate (Flonase Nasal [place] 50mcg*) 2 spray BOTH NARES DAILY [facility] Last Admin: 02/10/19 08:58 Dose: 2 spray Gabapentin (Neurontin Cap(*)) 600 mg PO TID [facility] Last Admin: 02/10/19 08:57 Dose: 600 mg Heparin Sodium (Porcine) (Heparin Vial(*)) 5,000 units SUBCUT Q8HR [facility] Last Admin: 02/10/19 06:07 Dose: 5,000 units Heparin Sodium (Porcine) (Heparin Flush Picc/Ml/Cvc(*)) 1 ml FLUSH 0600,1800 [facility]; Protocol Last Admin: 02/10/19 06:38 Dose: 1 ml Ceftriaxone Sodium 1 gm/ (Sodium Chloride) 50 mls @ 100 mls/hr IVPB Q24H [facility] Last Admin: 02/09/19 21:32 Dose: 100 mls/hr Insulin Human Lispro (Humalog*) 0 units SUBCUT ACHS [facility]; Protocol Last Admin: 02/10/19 08:58 Dose: 2 units Metoprolol Succinate (Toprol Xl Tab*) 25 mg PO DAILY [facility] Last Admin: 02/10/19 08:57 Dose: 25 mg Mometasone Furoate/Formoterol Fumar (Dulera 200/5 Mdi*) 2 puff INH BID [facility]; Protocol Last Admin: 02/10/19 08:48 Dose: 2 puff Montelukast Sodium (Singulair Tab*) 10 mg PO DAILY [facility] Last Admin: 02/10/19 08:57 Dose: 10 mg Multivitamins/Minerals (Theragran/Minerals Tab*) 1 tab PO DAILY [facility] Last Admin: 02/10/19 08:57 Dose: 1 tab Oxycodone/Acetaminophen (Percocet 5/325 Tab*) 1 tab PO BEDTIME PRN PRN Reason: PAIN - MODERATE Sodium Chloride (Sodium Chloride 0.65% Nasal [place]*) 2 spray BOTH NARES QID PRN PRN Reason: CONGESTION Vitamin E (Vitamin E Cap*) 400 unit PO DAILY [facility] Last Admin: 02/10/19 08:56 Dose: 400 unit Vital Signs - 8 hr 02/10/19 02/10/19 02/10/19 03:00 07:19 07:31 Temperature 98.5 F 97.8 F Pulse Rate 86 82 Respiratory 18 18 20 Rate Blood Pressure 120/66 135/64 (mmHg) O2 Sat by Pulse 94 94 Oximetry 02/10/19 02/10/19 08:49 08:57 Temperature Pulse Rate 86 Respiratory 16 18 Rate Blood Pressure (mmHg) O2 Sat by Pulse 94 Oximetry Oxygen Devices in Use Now: None Appearance: Elderly male sitting up in bed, NAD Eyes: No Scleral Icterus Ears/Nose/Mouth/Throat: Mucous Membranes Moist Respiratory: Symmetrical Chest Expansion and Respiratory Effort, Clear to Auscultation Cardiovascular: NL Sounds; No Murmurs; No JVD, RRR, No Edema Abdominal: NL Sounds; No Tenderness; No Distention, - - hayden still exiting continent pouch Extremities: No Clubbing, Cyanosis Skin: No Nodules or Sclerosis Neurological: Alert and Oriented x 3 Result Diagrams: 02/10/19 06:50 02/10/19 06:50 Microbiology and Other Data: Microbiology 02/06/19 19:29 Aerobic Blood Culture - Preliminary Blood Venous 02/06/19 19:45 Aerobic Blood Culture - Preliminary Blood Venous Anaerobic Blood Culture - Preliminary 02/07/19 05:43 Nasal Screen MRSA (PCR) - Final Nasal Mrsa Not Detected Assess/Plan/Problems-Billing Mr Carlton is a 73 yo M who has a h/o prostate cancer s/p prostatectomy and XRT who developed severe uretheral strictures requiring continent pouch be created which he straight catheterizes TID who presented to the ER with c/o fever and chills and was admitted for septic shock secondary to urinary source. - Patient Problems (1) Septic shock Current Visit: Yes Status: Acute Code(s): A41.9 - SEPSIS, UNSPECIFIED ORGANISM; R65.21 - SEVERE SEPSIS WITH SEPTIC SHOCK SNOMED Code(s): 26265059 Comment: Resolved after aggressive IVF hydration. He did not require pressors. Central line to come out (ordered for last evening but still in place today). (2) Pyelonephritis Current Visit: Yes Status: Acute Code(s): N12 - TUBULO-INTERSTITIAL NEPHRITIS, NOT SPCF ACUTE OR CHRONIC SNOMED Code(s): 02211052 Comment: Likely secondary to too infrequent catheterization and reusing catheters. Urine and blood grew Grp B strep. The patient and his are very heistant to stop IV abx at this time. They state his history is that IV Abx are stopped when the clinician feels it is appropriate but he "never" does well on the oral Abx. As his WBC count is still elevated will continue ceftriaxone for now. Will discuss with Dr. Kimbrough about how long he needs to be treated given his bacteremia. Pt needs cystoscope to evaluate bladder drainage that has increased in volume and changed in color. I spoke with Dr. Escobar who states that he can not even place a hayden into the bladder without taking the patient to the OR. It is Dr. Escobar's recommendation that the patient follow up as soon as possible with Dr. Johnson Calderon in [place] for his planned procedure of using a flexible pediatric cystoscope to evaluate the bladder. For now no attempts will be made to collect a sample of the drainage from the defunctionalized bladder. (3) Hydronephrosis Current Visit: Yes Status: Acute Code(s): N13.30 - UNSPECIFIED HYDRONEPHROSIS SNOMED Code(s): 10402858 Comment: Pt still with hayden in the pouch. Pt then to self catheterize at an increased frequency (4-5x/day). Follow up with Dr. Escobar as needed. (4) CKD (chronic kidney disease) stage 3, GFR 30-59 ml/min Current Visit: Yes Status: Chronic Code(s): N18.3 - CHRONIC KIDNEY DISEASE, STAGE 3 (MODERATE) SNOMED Code(s): 432438109 Comment: Pt with likely stage III CKD secondary to diabetic nephropathy and possibly hydronephrosis. Creatinine was up on admission likely related to his septic shock and hydroneprhosis. Creatinine continues to trend down. Continue to monitor renal function. (5) Diabetes mellitus type 2 Current Visit: Yes Status: Chronic Code(s): E11.9 - TYPE 2 DIABETES MELLITUS WITHOUT COMPLICATIONS SNOMED Code(s): 51826771 Comment: Blood sugars are mild-moderately elevated. Resume glipizide ER 2.5mg dailiy. His creatinine over the last several months has been >1.5 so he should not resume metformin. Continue lispro sliding scale. (6) Diabetic neuropathy Current Visit: Yes Status: Chronic Code(s): E11.40 - TYPE 2 DIABETES MELLITUS WITH DIABETIC NEUROPATHY, UNSP SNOMED Code(s): 676818317 Comment: Continue gabapentin at home dose. (7) CAD (coronary artery disease) Current Visit: Yes Status: Chronic Code(s): I25.10 - ATHSCL HEART DISEASE OF [place] CORONARY ARTERY W/O ANG PCTRS SNOMED Code(s): 25350634 Comment: Stable and without complaints of chest pain. Continue aspirin, metoprolol and statin. (8) DVT prophylaxis Current Visit: Yes Status: Acute Code(s): OPA8538 - SNOMED Code(s): 628911859 Comment: SQ heparin (9) Full code status Current Visit: Yes Status: Acute Code(s): Z78.9 - OTHER SPECIFIED HEALTH STATUS SNOMED Code(s): 382189655
[2019-02-10] MEDS ORDERED: glipiZIDE TAB.XL* 2.5 MG PO SCH (11:00)
[2019-02-10] MEDS: glipiZIDE TAB.XL* 2.5 MG PO SCH (12:51)
[2019-02-10] MEDS: Atorvastatin* 10 MG TAB PO SCH (17:45)
[2019-02-10] MEDS: cefTRIAXone(*) 1 GM in NS 0.9% 50 ML* 50 ML IVPB SCH ×2 (21:25→22:01)
[2019-02-11] MEDS: Heparin VIAL(*) 5000 UNITS/ML VIAL (FIVE THOUSAND) SUBCUT SCH ×3 (05:09→22:52)
[2019-02-11] MEDS: Metoprolol Succinate XL TAB* 25 MG PO SCH (08:50)
[2019-02-11] MEDS: Multivitamins/Minerals TAB PO SCH (08:50)
[2019-02-11] MEDS: Montelukast Sodium TAB* 10 MG PO SCH (08:51)
[2019-02-11] MEDS: Aspirin EC TAB* 81 MG TAB.EC PO SCH (08:51)
[2019-02-11] MEDS: Gabapentin CAP(*) 300 MG PO SCH ×3 (08:51→22:51)
[2019-02-11] MEDS: Vitamin E CAP* 400 UNIT PO SCH (08:51)
[2019-02-11] MEDS: Famotidine TAB* 20 MG PO SCH (08:51)
[2019-02-11] MEDS: Cyanocobalamin TAB* 500 MCG PO SCH (08:51)
[2019-02-11] MEDS: Insulin LISPRO* 1 UNITS UNIT SUBCUT SCH ×4 (08:54→22:46)
[2019-02-11] MEDS: Mometasone/Formoter 200/5 MDI INH SCH (08:59)
[2019-02-11] MEDS: glipiZIDE TAB.XL* 2.5 MG PO SCH (10:34)
[2019-02-11] MEDS: Fluticasone NASAL SPRAY 50MCG* 16 gm SPRAY BTL BOTH NARES SCH (10:34)
--- NOTE | 2019-02-11 10:54 | PN ---
Subjective Date of Service: 02/11/19 Interval History: No acute issues overnight. Patient this morning with no issues, is via the speaker phone. Patient states that yesterday he was feeling clear, today slight "fog" in the ophthalmic technician - but improved. No fever, no chills. Family History: Unchanged from Admission Social History: Unchanged from Admission Past Medical History: Unchanged from Admission Objective Active Medications: Acetaminophen (Tylenol Adult Liq*) 650 mg PO Q6H PRN PRN Reason: TEMPERATURE > 100.4 Last Admin: 02/10/19 06:14 Dose: 650 mg Aspirin (Aspirin Ec Tab*) 81 mg PO DAILY [facility] Last Admin: 02/11/19 08:51 Dose: 81 mg Atorvastatin Calcium (Lipitor*) 10 mg PO QPM [facility]; Protocol Last Admin: 02/10/19 17:45 Dose: 10 mg Cyanocobalamin (Vitamin B12 Tab*) 1,000 mcg PO DAILY [facility] Last Admin: 02/11/19 08:51 Dose: 1,000 mcg Cyclobenzaprine HCl (Flexeril Tab*) 10 mg PO BID PRN PRN Reason: PAIN - MODERATE Dextrose (Dextrose 50% Vial 50 Ml*) 25 ml IV PUSH .FOR FS < 60 - SS PRN PRN Reason: FS < 60 Famotidine (Pepcid Tab*) 20 mg PO DAILY [facility] Last Admin: 02/11/19 08:51 Dose: 20 mg Fluticasone Propionate (Flonase Nasal [place] 50mcg*) 2 spray BOTH NARES DAILY [facility] Last Admin: 02/11/19 10:34 Dose: 2 spray Gabapentin (Neurontin Cap(*)) 600 mg PO TID [facility] Last Admin: 02/11/19 08:51 Dose: 600 mg Glipizide (Glucotrol Xl*) 2.5 mg PO DAILY WITH MEAL [facility] Last Admin: 02/11/19 10:34 Dose: 2.5 mg Heparin Sodium (Porcine) (Heparin Vial(*)) 5,000 units SUBCUT Q8HR [facility] Last Admin: 02/11/19 05:09 Dose: 5,000 units Heparin Sodium (Porcine) (Heparin Flush Picc/Ml/Cvc(*)) 1 ml FLUSH 0600,1800 [facility]; Protocol Last Admin: 02/11/19 04:49 Dose: Not Given Ceftriaxone Sodium 1 gm/ (Sodium Chloride) 50 mls @ 100 mls/hr IVPB Q24H [facility] Last Admin: 02/10/19 22:01 Dose: 100 mls/hr Insulin Human Lispro (Humalog*) 0 units SUBCUT ACHS [facility]; Protocol Last Admin: 02/11/19 08:54 Dose: 1 units Metoprolol Succinate (Toprol Xl Tab*) 25 mg PO DAILY [facility] Last Admin: 02/11/19 08:50 Dose: 25 mg Mometasone Furoate/Formoterol Fumar (Dulera 200/5 Mdi*) 2 puff INH BID [facility]; Protocol Last Admin: 02/11/19 08:59 Dose: 2 puff Montelukast Sodium (Singulair Tab*) 10 mg PO DAILY [facility] Last Admin: 02/11/19 08:51 Dose: 10 mg Multivitamins/Minerals (Theragran/Minerals Tab*) 1 tab PO DAILY [facility] Last Admin: 02/11/19 08:50 Dose: 1 tab Oxycodone/Acetaminophen (Percocet 5/325 Tab*) 1 tab PO BEDTIME PRN PRN Reason: PAIN - MODERATE Sodium Chloride (Sodium Chloride 0.65% Nasal [place]*) 2 spray BOTH NARES QID PRN PRN Reason: CONGESTION Vitamin E (Vitamin E Cap*) 400 unit PO DAILY [facility] Last Admin: 02/11/19 08:51 Dose: 400 unit Vital Signs - 8 hr 02/11/19 02/11/19 02/11/19 03:05 08:06 08:51 Temperature 98.9 F 98.7 F Pulse Rate 95 90 Respiratory 16 20 18 Rate Blood Pressure 122/58 124/68 (mmHg) O2 Sat by Pulse 95 96 Oximetry 02/11/19 02/11/19 08:58 08:59 Temperature Pulse Rate 91 Respiratory 18 18 Rate Blood Pressure (mmHg) O2 Sat by Pulse 96 Oximetry Oxygen Devices in Use Now: None Appearance: Sitting on chair, not in distress, was talking on the phone. Eyes: PERRLA Respiratory: Symmetrical Chest Expansion and Respiratory Effort, Clear to Auscultation Cardiovascular: RRR, No Edema Abdominal: - - normoactive bowel sounds, urine continent pouch noted. abdomen is soft, nontender Extremities: No Edema Neurological: Alert and Oriented x 3 Result Diagrams: 02/10/19 06:50 02/10/19 06:50 Microbiology and Other Data: Microbiology 02/06/19 19:29 Aerobic Blood Culture - Preliminary Blood Venous 02/06/19 19:45 Aerobic Blood Culture - Preliminary Blood Venous Anaerobic Blood Culture - Preliminary 02/07/19 05:43 Nasal Screen MRSA (PCR) - Final Nasal Mrsa Not Detected Assess/Plan/Problems-Billing Mr Carlton is a 73 year old Male who has a h/o prostate cancer s/p prostatectomy and XRT who developed severe uretheral strictures requiring continent pouch be created which he straight catheterizes TID who presented to the ER with c/o fever and chills and was admitted for septic shock secondary to urinary source. - Patient Problems (1) Septic shock Current Visit: Yes Status: Acute Code(s): A41.9 - SEPSIS, UNSPECIFIED ORGANISM; R65.21 - SEVERE SEPSIS WITH SEPTIC SHOCK SNOMED Code(s): 34194049 Comment: Resolved after aggressive IVF hydration. He did not require pressors. Central line removed. (2) Pyelonephritis Current Visit: Yes Status: Acute Code(s): N12 - TUBULO-INTERSTITIAL NEPHRITIS, NOT SPCF ACUTE OR CHRONIC SNOMED Code(s): 09999797 Comment: Likely secondary to too infrequent catheterization and reusing catheters. Urine and blood grew Grp B strep. The patient and his are very heistant to stop IV abx at this time. They state his history is that IV Abx are stopped when the clinician feels it is appropriate but he "never" does well on the oral Abx. As his WBC count is still elevated will continue ceftriaxone for now. Per ID- Dr. Mckenzie- one-two more days, likley discharge in the next 24-48 hours. Discussed this with patient and , they are reluctant but willing. Pt needs cystoscope to evaluate bladder drainage that has increased in volume and changed in color. I spoke with Dr. Escobar who states that he can not even place a hayden into the bladder without taking the patient to the OR. It is Dr. Escobar's recommendation that the patient follow up as soon as possible with Dr. Johnson Calderon in [place] for his planned procedure of using a flexible pediatric cystoscope to evaluate the bladder. For now no attempts will be made to collect a sample of the drainage from the defunctionalized bladder. (3) Hydronephrosis Current Visit: Yes Status: Acute Code(s): N13.30 - UNSPECIFIED HYDRONEPHROSIS SNOMED Code(s): 56511282 Comment: Pt still with hayden in the pouch. Pt then to self catheterize at an increased frequency (4-5x/day). Follow up with Dr. Escobar as needed. (4) CAD (coronary artery disease) Current Visit: Yes Status: Chronic Code(s): I25.10 - ATHSCL HEART DISEASE OF [place] CORONARY ARTERY W/O ANG PCTRS SNOMED Code(s): 66084321 Comment: Stable and without complaints of chest pain. Continue aspirin, metoprolol and statin. (5) Diabetes mellitus type 2 Current Visit: Yes Status: Chronic Code(s): E11.9 - TYPE 2 DIABETES MELLITUS WITHOUT COMPLICATIONS SNOMED Code(s): 54573467 Comment: Blood sugars range 198-224. Resumed glipizide ER 2.5mg dailiy. His creatinine over the last several months has been >1.5 so he should not resume metformin. Continue lispro sliding scale. (6) Diabetic neuropathy Current Visit: Yes Status: Chronic Code(s): E11.40 - TYPE 2 DIABETES MELLITUS WITH DIABETIC NEUROPATHY, UNSP SNOMED Code(s): 833043133 Comment: Continue gabapentin at home dose. (7) Full code status Current Visit: Yes Status: Acute Code(s): Z78.9 - OTHER SPECIFIED HEALTH STATUS SNOMED Code(s): 875517140 (8) DVT prophylaxis Current Visit: Yes Status: Acute Code(s): CKT3211 - SNOMED Code(s): 033628449 Comment: SQ heparin
[2019-02-11] MEDS: Atorvastatin* 10 MG TAB PO SCH (17:45)
[2019-02-11] MEDS: cefTRIAXone(*) 1 GM in NS 0.9% 50 ML* 50 ML IVPB SCH (22:48)
[2019-02-12] MEDS: Heparin VIAL(*) 5000 UNITS/ML VIAL (FIVE THOUSAND) SUBCUT SCH ×2 (05:17→15:05)
[2019-02-12] MEDS: Mometasone/Formoter 200/5 MDI INH SCH ×3 (07:09→18:08)
[2019-02-12] MEDS ORDERED: Amoxicillin/Clavulanate TAB* 875 MG PO SCH (09:00)
[2019-02-12] MEDS: Metoprolol Succinate XL TAB* 25 MG PO SCH (09:17)
[2019-02-12] MEDS: Famotidine TAB* 20 MG PO SCH (09:17)
[2019-02-12] MEDS: Cyanocobalamin TAB* 500 MCG PO SCH (09:18)
[2019-02-12] MEDS: glipiZIDE TAB.XL* 2.5 MG PO SCH (09:18)
[2019-02-12] MEDS: Aspirin EC TAB* 81 MG TAB.EC PO SCH (09:18)
[2019-02-12] MEDS: Multivitamins/Minerals TAB PO SCH (09:18)
[2019-02-12] MEDS: Gabapentin CAP(*) 300 MG PO SCH ×2 (09:18→15:07)
[2019-02-12] MEDS: Vitamin E CAP* 400 UNIT PO SCH (09:18)
[2019-02-12] MEDS: Montelukast Sodium TAB* 10 MG PO SCH (09:18)
[2019-02-12] MEDS: Fluticasone NASAL SPRAY 50MCG* 16 gm SPRAY BTL BOTH NARES SCH (09:21)
[2019-02-12] MEDS: Insulin LISPRO* 1 UNITS UNIT SUBCUT SCH ×3 (09:24→17:30)
[2019-02-12 09:47] LABS: ABS Basophils 0.1 10^3/ul (0-0.2); ABS Eosinophils 0.3 10^3/ul (0-0.6); ABS Lymphocytes 1.3 10^3/ul (1.0-4.8); ABS Monocytes 0.8 10^3/ul (0-0.8); ABS Neutrophils 9.4 10^3/ul (1.5-7.7); Eosinophil % 2.4 %; Hematocrit 29 % (42-52); Hemoglobin 9.5 g/dL (14.0-18.0); Lymphocyte % 10.8 %; Mean Corpuscular HGB Conc 33 g/dL (31-36); Mean Corpuscular Hemoglobin 30 pg (27-31); Mean Corpuscular Volume 91 fL (80-94); Mean Platelet Volume 7.3 fL (7.4-10.4); Platelet Count 374 10^3/uL (150-450); Red Blood Count 3.17 10^6 /uL (4.18-5.48); Red Cell Distribution Width 13 % (10-15); White Blood Count 11.8 10^3/uL (3.5-10.8)
[2019-02-12 10:24] LABS: % Iron Saturation 8 % (15-55); Iron 24 ug/dL (50-212); Total Iron Binding Capacity 291 mcg/dL (250-450); Transferrin 208 mg/dL (203-362)
[2019-02-12 10:42] LABS: Ferritin 232.1 ng/mL (24-336)
[2019-02-12 18:06] VITALS: BP 126/67
--- NOTE | 2019-02-13 00:31 | DS ---
CC: Dr. Washington; Dr. Ugalde * DISCHARGE SUMMARY: DATE OF ADMISSION: 02/07/19 DATE OF DISCHARGE: 02/12/19 ATTENDING PHYSICIAN WHILE IN THE HOSPITAL: Dr. Bethany Saravia * (dictated by KATIE Teague). PRIMARY CARE PROVIDER: Dr. Washington. CONSULTING UROLOGIST: Dr. Ugalde. PRIMARY DIAGNOSES: 1. Septic shock secondary to pyelonephritis, septic shock resolved. 2. Group B strep bacteremia. SECONDARY DIAGNOSES: 1. Coronary artery disease. 2. History of Lyme disease. 3. Asthma. 4. Type 2 diabetes, complicated by neuropathy and nephropathy. 5. Chronic kidney disease, stage 3. 6. Dyslipidemia. 7. Prostate cancer, status post prostate resection and radiation therapy. 8. Significant urinary incontinence due to urinary stricture secondary to radiation therapy, now status post urinary diversion with urostomy and continence pouch. The patient self-catheterizes his continence pouch from stoma. 9. History of deep venous thrombosis, no longer on anticoagulation. PERTINENT LAB DATA: On 02/06/19, blood cultures positive for group B strep which is sensitive to penicillins, cephalosporins, but resistant to clindamycin. Blood culture collected on 02/08/19, no growth to date. Urine culture positive for group B strep. HISTORY OF PRESENT ILLNESS/HOSPITAL COURSE: Jus Carlton is a 73-year-old white male with past medical history of complicated urological history. He has a history of prostate cancer, status post radiation. He developed frequent urinary strictures that were no longer responding to dilation and ultimately had a urinary pouch created by Dr. Calderon at [facility] [[email or web address] The patient has a continence pouch and self-catheterizes this daily. However, it was brought to light during his hospital stay that he has been reusing his straight cath, and therefore, this is likely the cause of his infection. The patient initially presented to the emergency department with signs of septic shock. His blood pressure was initially 74/38, but did improve with 4 L of fluid. He did not ever need pressors. He was started on empiric coverage with Rocephin and vancomycin. Ultimately, this was changed to ceftriaxone as the group B strep in his urine as well as in his blood was found to be sensitive to cephalosporins. This was discussed with Dr. Kimbrough, who felt that by the date of discharge it would be safe to convert the patient to p.o. for a total of [address] Escobar, who is the patient's local urologist, recommended followup with his urologist in [place], Dr. Calderon, as the patient likely will need flexible cystoscopy to evaluate the bladder. During the hospital stay, the surveillance blood cultures were negative thus far after treatment with IV antibiotics. The patient's leukocytosis has improved and is on date of discharge decreased to 11,800. By the day of discharge, he had been afebrile for well over 72 hours. It was discussed thoroughly with the patient and his that a temperature of 99.2 degrees Fahrenheit is not a true fever by any standard. On the day of discharge, the patient is asymptomatic. He has no abdominal or suprapubic pain, flank pain, fever, chills, and he is overall feeling well. He is noting right hip pain, which he states has been present for several days. He described it as pain in his right groin. Right hip and pelvis x- ray was taken on the day of discharge which did not demonstrate fracture. Again, the case was discussed with the patient's local urologist on the day of discharge, who felt the plan for antibiotics was safe and the plan for followup with Dr. Calderon was needed. Despite this hip pain, the patient was able to ambulate well with his cane, which is his normal mode of ambulation per nursing staff. PHYSICAL EXAM ON THE DAY OF DISCHARGE: General: Elderly white male, lying upright in hospital bed, appearing comfortable, in no acute distress. Eyes: PERRLA. Sclerae anicteric. ENT: Mucous membranes appear moist. Lungs: Clear to auscultation bilaterally. Cardio: Regular rate and rhythm without murmurs, rubs, or gallops. Abdomen: Stoma to right mid abdomen with no surrounding erythema. No tenderness to palpation throughout the abdomen. Abdomen is soft and nondistended with normoactive bowel sounds. No hernias palpated. Extremities: No clubbing, cyanosis, or edema. Musculoskeletal: Weakness of flexion of the right hip against resistance. No difficulty or resistance with extension of the hip. Dorsiflexion and plantar flexion bilaterally 5/5. Neuro : Sensation to light touch is intact up until approximately 3 inches below knee , which the patient describes is consistent with his chronic neuropathy. The patient is alert and oriented x3 without focal deficits. Skin: Warm, dry, and intact. DISCHARGE PLAN: Diet: Heart-healthy diet, carbohydrate consistent. Activity: The patient may return to his normal activity as tolerated. The patient is advised to follow up with his primary care provider within 7 to 10 days. He should additionally follow up with his primary care provider if his hip pain is not improving with his outpatient physical therapy. It may be necessary for the patient to have a CT of his hip. The patient has been describing groin pain. I was not able to appreciate a hernia, though again this may be necessary for further evaluation. The patient has an appointment scheduled with his urologist at [facility] [[email or web address]], Dr. Calderon, for 02/17/19. The patient is advised to return to the emergency department if he has purulent discharge from his stoma, if he notes purulent urine, fever, chills, abdominal, flank or low back pain, or hematuria. The patient is advised to complete his oral antibiotics until the end of the prescription. Additionally, Dr. Escobar recommended more frequent catheterizations and again only use sterile straight cath material. DISCHARGE MEDICATIONS: New medication: 1. Augmentin 875 mg p.o. b.i.d. x17 doses. Continued home medications: 1. Metformin 1500 mg p.o. at bedtime. 2. Glipizide 2.5 mg p.o. daily. 3. Montelukast 10 mg p.o. daily. 4. Multivitamin 1 tab p.o. daily. 5. Nitroglycerin 0.4 mg sublingual q.5 minutes p.r.n. angina. 6. Pravastatin 40 mg p.o. daily. 7. Metoprolol succinate 25 mg p.o. daily. 8. Melatonin 5 mg p.o. at bedtime. 9. Gabapentin 600 mg p.o. t.i.d. 10. Vitamin D3 1000 units p.o. daily. 11. Vitamin B12 1000 mcg p.o. daily. 12. Famotidine 20 mg p.o. b.i.d. 13. Fluticasone 2 sprays both nares daily. 14. Aspirin 81 mg p.o. daily. 15. Symbicort 2 puffs inhaled b.i.d. 16. Lisinopril 5 mg p.o. daily. 17. Vitamin E 400 units p.o. daily. 18. Flexeril 10 mg p.o. b.i.d. p.r.n. moderate pain. 19. Probiotic 1 tab p.o. b.i.d. 20. Oxycodone/acetaminophen 5/325 mg 1 tab p.o. at bedtime p.r.n. pain. 21. Ammonium lactate 12% one application topically daily. CONDITION ON DISCHARGE: Stable. DISPOSITION: Home. TIME SPENT: Approximately 45 minutes was spent on this discharge, approximately half that time was spent at the bedside evaluating the patient and discussing the plan of care. KATIE TEAGUE [id number]/CPS #: [id number] MTDD
== END 2019-02-12 18:27 | disposition home or self-care (01) | DRG 720 ==
LOC: ED 18:37 → ICU 02-07 00:05 → MEDTELE 02-08 10:43
PROVIDERS: ADMIT Internal Medicine; ATTEND Internal Medicine
PROC: 05HM33Z Insertion of Infusion Device into Right Internal Jugular Vein, Percutaneous Approach (ICD-10-PCS; principal; 2019-02-07)
DX: A40.1 Sepsis due to streptococcus, group B (principal); R65.21 Severe sepsis with septic shock; E87.2 Acidosis; N13.6 Pyonephrosis; Z16.39 Resistance to other specified antimicrobial drug; I25.10 Atherosclerotic heart disease of native coronary artery without angina pectoris; E11.42 Type 2 diabetes mellitus with diabetic polyneuropathy; E11.21 Type 2 diabetes mellitus with diabetic nephropathy; E11.22 Type 2 diabetes mellitus with diabetic chronic kidney disease; N18.3 Chronic kidney disease, stage 3 (moderate); J45.909 Unspecified asthma, uncomplicated; E78.5 Hyperlipidemia, unspecified; M51.26 Other intervertebral disc displacement, lumbar region; E78.00 Pure hypercholesterolemia, unspecified; E11.51 Type 2 diabetes mellitus with diabetic peripheral angiopathy without gangrene; J42 Unspecified chronic bronchitis; M19.90 Unspecified osteoarthritis, unspecified site; E11.65 Type 2 diabetes mellitus with hyperglycemia; I12.9 Hypertensive chronic kidney disease with stage 1 through stage 4 chronic kidney disease, or unspecified chronic kidney disease; R32 Unspecified urinary incontinence; M25.551 Pain in right hip; Z91.040 Latex allergy status; Z95.5 Presence of coronary angioplasty implant and graft; Z85.46 Personal history of malignant neoplasm of prostate; Z92.21 Personal history of antineoplastic chemotherapy; Z86.718 Personal history of other venous thrombosis and embolism; Z93.6 Other artificial openings of urinary tract status; Z91.048 Other nonmedicinal substance allergy status; Z90.79 Acquired absence of other genital organ(s); I25.2 Old myocardial infarction; Z72.89 Other problems related to lifestyle; Z92.3 Personal history of irradiation; Z79.84 Long term (current) use of oral hypoglycemic drugs; Z79.82 Long term (current) use of aspirin; Z87.01 Personal history of pneumonia (recurrent)
CPT/HCPCS: 36415; 71045; 74176; 80048; 80053; 80202; 81003; 81015; 82728; 83540; 83550; 83605; 84484; 85025; 85610; 87040; 87070; 87077; 87086; 87186; 87205; 87641; 93306; 94640; 99284; A9270-GY; J0696; J1644; J3370

== ENCOUNTER 2019-02-23 19:37 | Emergency (ER) | payer BC ==
--- OUTSIDE RECORDS SUMMARY | 2019-02-23 19:56 | XMS REPORT | Summary of Care ---
:1945 Author Organization [facility] Address [address] [place] [address] Care Team Providers Name Role Phone Prabha Washington MD Primary Care Provider Reason for Visit Reason Comments Procedure cysto Encounter Details Date Type Department Care Team Description 02/17/2019 Procedure visit [facility] Urology Piter Mcclellan Urethral bleeding (Primary Dx); [address] Radha Junior MD H/O urethral stricture [address] [place] [address] [id number] Allergies Active Allergy Reactions Severity Noted Date Comments Adhesive Tape Rash Low 09/23/2018 Specifically silk tape. Uses paper tape only Latex Rash Low 08/02/2009 documented as of this encounter (statuses as of 02/17/2019) Medications Medication Sig Dispensed Refills Start Date End Date Status nitroglycerin Place 0.4 mg under 0 Active (NITROSTAT) 0.6 MG SL the tongue tablet metformin 750 mg 0 Active (GLUCOPHAGE) 1000 MG tablet gabapentin Take 600 mg by 2 09/05/2018 Active (NEURONTIN) 300 MG mouth Three times capsule daily glipiZIDE (GLUCOTROL) glipizide ER 2.5 mg 0 Active 2.5 MG 24 hr tablet tablet, extended release 24 hr metoprolol metoprolol 0 Active (TOPROL-XL) 25 MG 24 succinate ER 25 mg hr tablet tablet,extended release 24 hr lisinopril Take 5 mg by mouth 3 06/18/2018 Active (PRINIVIL,ZESTRIL) 5 daily MG tablet montelukast montelukast 10 mg 0 Active (SINGULAIR) 10 MG tablet tablet pravastatin Take 40 mg by mouth 3 06/16/2018 Active (PRAVACHOL) 40 MG daily tablet fluticasone (FLONASE) fluticasone 0 Active 50 MCG/ACT nasal propionate 50 spray mcg/actuation nasal spray,suspension SYMBICORT 80-4.5 0 06/20/2018 Active MCG/ACT inhaler aspirin 81 MG tablet Take 81 mg by mouth 0 Active Ammonium Lactate Apply topically 0 Active (LAC-HYDRIN FIVE) 5 % LOTN Albuterol Sulfate Inhale into the 0 Active (PROAIR RESPICLICK) lungs 108 (90 Base) MCG/ACT AEPB vitamin B-12 Vitamin B12 0 04/04/2017 Active (CYANOCOBALAMIN) 100 1 tablet po daily MCG tablet PROBIOTIC PRODUCT PO Take by mouth 0 Active MULTIPLE VITAMINS PO Take by mouth 0 Active glucose blood test FreeStyle Lite Strips 0 Active strip USE 1 STRIP bid ketoconazole ketoconazole 2 % 0 Active (NIZORAL) 2 % cream topical cream famotidine (PEPCID) Take 20 mg by mouth 0 Active 20 MG tablet Two Times Daily oxycodone-acetaminoph TAKE ONE TABLET BY 0 01/06/2019 Active en (PERCOCET) 5-325 MOUTH EVERY 6 HOURS MG per tablet FOR 10 DAYS Amoxicillin-Pot 0 02/12/2019 Active Clavulanate 875-125 MG Oral Tablet (AUGMENTIN) Hospital, Clinic, or Other Ordered Dose Route Frequency Start Date End Date Status Facility Administered Medication lidocaine (XYLOCAINE) 2 % 20 mL UR Once 02/17/2019 02/17/2019 Ended urojet 20 mL documented as of this encounter (statuses as of 02/17/2019) Active Problems Problem Noted Date Prostate cancer H/O urethral stricture documented as of this encounter (statuses as of 02/17/2019) Social History Tobacco Use Types Packs/Day Years Used Date Never Smoker 0 Smokeless Tobacco: Never Used Alcohol Use Drinks/Week oz/Week Comments Yes Alcohol Habits Answer Date Recorded How often do you have a drink containing alcohol? Monthly or less 09/23/2018 How many drinks containing alcohol do you have on a Not asked typical day when you are drinking? How often do you have six or more drinks on one Not asked occasion? Sex Assigned at Date Recorded Not on file Job Start Date Occupation Industry Not on file Not on file Not on file Travel History Travel Start Travel End No recent travel history available. documented as of this encounter Last Filed Vital Signs Vital Sign Reading Time Taken Comments Blood Pressure 105/68 02/17/2019 2:51 PM EST Pulse 95 02/17/2019 2:51 PM EST Temperature 36.8 02/17/2019 2:51 PM EST C (98.2 F) Respiratory Rate 18 02/17/2019 2:51 PM EST Oxygen Saturation 99% 02/17/2019 2:51 PM EST Inhaled Oxygen Concentration - - Weight 97.5 kg (215 lb) 02/17/2019 2:51 PM EST Height - - Body Mass Index 30.85 02/03/2019 9:02 AM EDT documented in this encounter Patient Instructions Patient InstructionsEdelmira Lopez RN - 02/17/2019 2:30 PM EST Patient Discharge Instructions for Cystoscopy Discharge instructions were given to Jus prior to procedure. Jus verbalized understanding of alldischarge instrudctions These instructions included: Cystoscopy Cystoscopy is a procedure that lets your doctor look directly inside your urethra and bladder. It can be used to: Help diagnose a problem with your urethra, bladder, or kidneys. Take a sample (biopsy) of bladder or urethral tissue. Treat certain problems (such as removing kidney stones). Place a stent to bypass an obstruction. Take special x-rays of the kidneys. Based on the findings, your doctor may recommend other tests or treatments. What Is a Cystoscope? A cystoscope is a telescope-like instrument that contains lenses and fiberoptics (small glass wires that make bright light). The cystoscope may be straight and rigid, or flexible to bend around curves in the urethra. The doctor may look directly into the cystoscope, or project the image onto a monitor. Getting Ready To prepare, stop taking any medications as instructed. Ask whether you should avoid eating or drinking anything after midnight before the procedure. Follow any other instructions your doctor gives you. Tell your doctor before the exam if you: Take any medications, such as aspirin or blood thinners Have allergies to any medications Are The Procedure Cystoscopy is done in the doctors office or hospital. The doctor and sometimes a nurse are present during the procedure. It takes only a few minutes , longer if a biopsy, x-ray, or treatment needsto be done. During the procedure: You lie on an exam table on your back, knees bent and legs apart. You are covered with a drape. Your urethra and the area around it are washed. Anesthetic jelly may be applied to numb the urethra.Other pain medication is usually not needed. In some cases, you may be offered a mild sedative to help you relax. If a more extensive procedure is to be done, such as a biopsy or kidney stone removal, general anesthesia may be needed. The cystoscope is inserted. A sterile fluid is put into the bladder to expand it. You may feel pressure from this fluid. When the procedure is done, the cystoscope is removed. After the Procedure If you had a sedative, general anesthesia, or spinal anesthesia, you must have someone drive you home. Once youre home: Drink plenty of fluids. You may have burning or light bleeding when you urinatethis is normal. Medications may be prescribed to ease any discomfort or prevent infection. Take these as directed. Call your doctor if you have heavy bleeding or blood clots, burning that lasts more than a day, a fever over 101F , [place] [address]. All rights reserved. Thisinformation is not intended as a substitute for professional medical care. Always follow your healthcare professional's instructions. Your provider for this treatment was Edelmira Lopez RN If you have any questions please do not hesitate to call us! documented in this encounter Progress Notes Piter Mcclellan MD - 02/17/2019 2:30 PM EST Dictation on: 02/17/2019 4:13 PM by: PITER MCCLELLAN [[id number]] documented in this encounter Plan of Treatment Date Type Specialty Care Team Description 04/28/2019 Procedure visit Urology Piter Mcclellan MD [address] [place] [address] [phone] Name Type Priority Associated Order Schedule Diagnoses Cytology, Non Pathology and Routine Urethral bleeding Ordered: Gynecological Cytology 02/17/2019 Health Maintenance Due Date Last Done Comments Hepatitis C Screening (B. 1945 [id number]) MMR Vaccines (1 of 1 - Standard 07/07/1946 series) DTaP,Tdap,and Td Vaccines (1 - 1953 Tdap) Hepatitis B Vaccines (1 of 3 - 1965 Risk 3-dose series) Colon Cancer Screening 10 yrs 1996 Zoster Vaccines (1 of 2) 1996 Pneumococcal Vaccine: 65+ Years (1 07/07/2011 of 2 - PCV13) Influenza Vaccine 01/13/2019 Hepatitis A Vaccines Aged Out 12/06/2016 No longer eligible based on patient's age to complete this topic HIB Vaccines Aged Out No longer eligible based on patient's age to complete this topic IPV Vaccines Aged Out No longer eligible based on patient's age to complete this topic Pneumococcal Vaccine: Pediatrics Aged Out No longer eligible based on (0 to 5 Years) and At-Risk patient's age to complete Patients (6 to 64 Years) this topic Varicella Vaccines Aged Out No longer eligible based on patient's age to complete this topic documented as of this encounter Results Not on filedocumented in this encounter Visit Diagnoses Diagnosis Urethral bleeding - Primary Other specified disorders of urethra H/O urethral stricture Personal history of other disorder of urinary system documented in this encounter Administered Medications Medication Order MAR Action Action Date Dose Rate Site lidocaine (XYLOCAINE) 2 % urojet Given 02/17/2019 3:46 PM EST 20 mLs 20 mL 20 mL, Urethral, Once, 02/17/19 at 1500, For 1 dose documented in this encounter
--- NOTE | 2019-02-23 20:17 | ED ---
Complex/Multi-Sys Presentation - HPI Summary HPI Summary: Patient is a 73 y/o M presenting to the ED for a chief complaint of generalized weakness. Patient is present with his . Patient was previously admitted to [facility] and discharged about one week ago for sepsis. Patient spoke with Dr. Washington who recommended the patient go to the ED. Since his discharge, patient has had weakness and numbness in the bilateral LE, difficulty ambulating the bilateral LE, bilateral elbow and knee pain, confusion, intermittent slurred speech, 2 episodes of hallucinations, memory changes, and tremors in the bilateral hands. Patient also reports testicular pain when sitting and pain in the groin region that his physical therapist suspects is a hernia. Patient denies headache, neck pain, shortness of breath, chest pain, urinary incontinence, bowel incontinence, or numbness or paresthesia in the groin. Patient has a PMHx of a herniated disc that occurred after a fall on for which the patient had an MRI in December 2018. His back pain is currently at baseline. Patient has been going to physical therapy for the back pain in [place] and sees a neurosurgeon in [place]. Patient also has a PMHx of peripheral neuropathy, NE 5 years ago, prostate cancer in remission for 20 years, and CKD. Patient has a PSHx of 18 foot surgeries. Patient has a conduit bladder for which he self-catheters. Patient is able to walk with the use of a cane. Patient previously took pain medications for 2 months, but recently stopped when admitted to [facility]. - History Of Current Complaint Chief Complaint: EDNeurologicalDeficit Hx Obtained From: Patient Onset/Duration: Sudden Onset, Still Present Timing: Constant Severity Currently: Moderate Severity Initially: Moderate Associated Signs And Symptoms: Positive: Confusion, Back Pain - At baseline. Negative: Headache, SOB, Chest Pain - Allergies/Home Medications Allergies/Adverse Reactions: Allergies Allergy/AdvReac Type Severity Reaction Status Date / Time Adhesive Tape [Silk Tape] Allergy Unknown Verified 02/23/19 19:50 Reaction Details latex Allergy Swelling Verified 02/23/19 19:50 PMH/Surg Hx/FS Hx/Imm Hx Previously Healthy: Yes Endocrine/Hematology History: Reports: Hx Anticoagulant Therapy, Hx Diabetes Denies: Hx Sickle Cell Disease, Hx Thyroid Disease, Hx Anemia, Hx Unexplained Bleeding Cardiovascular History: Reports: Hx Cardiomegaly, Hx Coronary Artery Disease, Hx Deep Vein Thrombosis, Hx Hypercholesterolemia, Hx Myocardial Infarction, Hx Peripheral Vascular Disease, Other Cardiovascular Problems/Disorders - cardiomegaly , Denies: Hx Aneurysm, Hx Angina, Hx Angioplasty, Hx Auto Implanted Cardiovert Defib, Hx Cardiac Arrest, Hx Congenital Heart Disease, Hx Congestive Heart Failure, Hx Embolism, Hx Hypotension, Hx Hypertension, Hx Pacemaker/ICD, Hx Rheumatic Fever, Hx Syncope, Hx Valvular Heart Disease Respiratory History: Reports: Hx Asthma, Hx Chronic Bronchitis, Hx Pneumonia, Hx Seasonal Allergies, Hx Sleep Apnea, Other Respiratory Problems/Disorders - FREQUENT PNEUMONIA Denies: Hx Chronic Obstructive Pulmonary Disease (COPD), Hx Pulmonary Embolism GI History: Reports: Other GI Disorders - 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 Denies: Hx Cirrhosis, Hx Crohn's Disease, Hx Diverticulosis, Hx Gall Bladder Disease, Hx Gastroesophageal Reflux Disease, Hx Gastrointestinal Bleed, Hx Hiatal Hernia, Hx Irritable Bowel, Hx Jaundice, Hx Obstructive Bowel, Hx Ileostomy, Hx Pyloric Stenosis, Hx Ulcer History: Reports: Other Problems/Disorders - Continent urinary diversion at [facility] Denies: Hx Acute Renal Failure, Hx Benign Prostatic Hyperplasia, Hx Chronic Renal Failure, Hx Dialysis, Hx Kidney Infection, Hx Kidney Stones Musculoskeletal History: Reports: Hx Arthritis, Hx Back Problems, Hx Bursitis - KNEE, Other Musculoskeletal History - osteomyleitis Denies: Hx Gout, Hx Osteoporosis, Hx Scoliosis Sensory History: Reports: Hx Contacts or Glasses Denies: Hx Legally Blind, Hx Deafness, Hx Hearing Aid Opthamlomology History: Reports: Hx Contacts or Glasses Denies: Hx Legally Blind EENT History: Denies: Hx Deafness Neurological History: Reports: Hx Nerve Disease - diabetic neuropathy to LE, Other Neuro Impairments/Disorders - neuropathy to bilat feet Denies: Hx Seizures, Hx Spinal Cord Injury, Hx Transient Ischemic Attacks ( TIA) Psychiatric History: Denies: Hx Panic Disorder - Cancer History Cancer Type, Location and Year: prostate cancer Hx Chemotherapy: No Hx Radiation Therapy: Yes - Proton Radiation Hx Palliative Cancer Treatment: No - Surgical History Surgical History: Yes Surgery Procedure, Year, and Place: appendix, tonsils, prostatectomy, urinary incontinence diversion 2002, rt foot x9, left foot x5, hernia repair,cardiac stent 04/08/13 pt has stent card please make copy for mri scan. urostomy Hx Anesthesia Reactions: No - Immunization History Date of Influenza Vaccine: 11/2016 Infectious Disease History: No Infectious Disease History: Denies: Hx Clostridium Difficile, Hx Hepatitis, Hx Human Immunodeficiency Virus (HIV), Hx of Known/Suspected MRSA, Hx Shingles, Hx Tuberculosis, Hx Known/ Suspected VRE, Hx Known/Suspected VRSA, History Other Infectious Disease, Traveled Outside the [place] in Last 30 Days - Family History Known Family History: Positive: Blood Disorder - FMHx of blood clots , Other - neg: anaesthesia reaction - Social History Occupation: Retired Lives: With Family Alcohol Use: Occasionally Alcohol Amount: 1x week Hx Substance Use: No Substance Use Type: Reports: None Hx Tobacco Use: No Smoking Status (MU): Never Smoked Tobacco Have You Smoked in the Last Year: No Review of Systems Negative: Chest Pain Negative: Shortness Of Breath Positive: Other - Negative bowel incontinence Positive: pain - Testicular and in groin region. Negative: dysuria, incontinence - Urinary Positive: Arthralgia - Negative neck pain, positive bilateral elbows and knees, Myalgia - Back pain, Other - Positive difficulty ambulating bilateral LE Neurological: Other - Positive tremors in bilateral hands and confusion Positive: Weakness - Bilateral LE and generalized, Numbness - Bilateral feet, negative in groin, Slurred Speech. Negative: Headache, Paresthesia - In groin Positive: Other - Positive haalucinations and memory changes All Other Systems Reviewed And Are Negative: Yes Physical Exam - Summary Physical Exam Summary: General: This is a well-developed, well- nourished elderly man lying on the stretcher in no apparent distress. The patient does not appear ill or toxic. He was observed to get up out of the wheelchair onto the bed with minimal assist. HEENT:Extraocular movements are intact. Conjunctiva are normal without pallor. Pharynx is clear without exudate or swelling. Dentition is unremarkable. There is no sign of head trauma. Neck: Supple, no adenopathy noted. Lungs: Lungs are clear to auscultation. There are no signs of respiratory distress. Coronary: Peripheral perfusion is good. Heart sounds are regular, a normal S1 and S2 were auscultated. There is no gallop rhythm, nor any pathological sounded murmurs. Abdomen: The abdomen appears normal and is nondistended. Normoactive bowel sounds are present. On palpation, there is no significant tenderness, nor any guarding or rebound. There is no hepatosplenomegaly, nor any masses. Genitourinary: Deferred Back: Good range of motion is observed. There are no surface abnormalities nor any scoliosis. Exam is complicated by chronic neuropathy. He does have bilateral LE weakness. He cannot raise the right leg against gravity, he can raise the left against gravity but not against resistance. Upper extremity strength is good. Extremities: There is no sign of any trauma to the extremities. Neurologic: The patient is awake and alert, speech is fluent and conversation is appropriate. Motor exam as above. Cranial nerves are grossly intact. Deep tendon reflexes are 1+ and symmetric and without clonus. There is no ataxia observed. Rectal tone is felt to be normal. There is chronic loss of sensation in the lower extremities, pt states at baseline. There is normal sensation in the perineal area. Psychiatric. The patients affect is felt to be normal and appropriate. There is no sign of any hallucinations or delusions, or any other signs of psychosis Triage Information Reviewed: Yes Vital Signs On Initial Exam: Initial Vitals Temp Pulse Resp BP Pulse Ox 97.9 F 88 18 114/66 98 02/23/19 19:42 02/23/19 19:42 02/23/19 19:42 02/23/19 19:42 02/23/19 19:42 Vital Signs Reviewed: Yes - Eusebio Coma Scale Best Eye Response: 4 - Spontaneous Best Motor Response: 6 - Obeys Commands Best Verbal Response: 5 - Oriented Coma Scale Total: 15 Procedures - Sedation Patient Received Moderate/Deep Sedation with Procedure: No Diagnostics - Vital Signs Vital Signs Temp Pulse Resp BP Pulse Ox 02/23/19 19:42 97.9 F 88 18 114/66 98 - Laboratory Result Diagrams: 02/23/19 20:44 02/23/19 20:44 Lab Statement: Any lab studies that have been ordered have been reviewed, and results considered in the medical decision making process. - CT Brain CT CT Interpretation Completed By: ED Physician, Radiologist Summary of CT Findings: Brain CT IMPRESSION: 1. No traumatic intracranial abnormalities. 2. Mild chronic small vessel ischemic disease. Reviewed by ED physician. Complex Multi-Symp Course/Dx Course Of Treatment: Patient is a 73 y/o M presenting to the ED for a chief complaint of generalized weakness. Patient is present with his . Patient was previously admitted to [facility] and discharged about one week ago for sepsis. Patient spoke with Dr. Washington who recommended the patient go to the ED. Since his discharge, patient has had weakness and numbness in the bilateral LE, difficulty ambulating the bilateral LE, bilateral elbow and knee pain, confusion , intermittent slurred speech, 2 episodes of hallucinations, memory changes, and tremors in the bilateral hands. Patient also reports testicular pain when sitting and pain in the groin region that his physical therapist suspects is a hernia. Patient denies headache, neck pain, shortness of breath, chest pain, urinary incontinence, bowel incontinence, or numbness or paresthesia in the groin. Patient has a PMHx of a herniated disc that occurred after a fall on for which the patient had an MRI in December 2018. His back pain is currently at baseline. Patient has been going to physical therapy for the back pain in [place] and sees a neurosurgeon in [place]. Patient also has a PMHx of peripheral neuropathy, [place] 5 years ago, prostate cancer in remission for 20 years, and CKD. Patient has a PSHx of 18 foot surgeries. Patient has a conduit bladder for which he self-catheters. Patient is able to walk with the use of a cane. Patient previously took pain medications for 2 months, but recently stopped when admitted to [facility]. On exam, well appearing elderly man, able to get up from wheelchair and on bed on his own. Rectal tone is felt to be normal. There is chronic loss of sensation in the lower extremities, patient states at baseline. There is normal sensation in the perineal area. There is no sign of any hallucinations or delusions, or any other signs of psychosis. Laboratory abnormal findings: urine leukocyte esterase 1+, urine WBC 3+, urine RBC 1+, urine bacteria 1+, urine ascorbic acid present, WBC 11.3, RBC 3.32, Hgb 9.8, Hct 30, MPV 7.0, absolute neuts 8.3, absolute monos 1.1, carbon dioxide 20 , BUN 49, creatinine 2.60, glucose 104, AST 11. Brain CT IMPRESSION: 1. No traumatic intracranial abnormalities. 2. Mild chronic small vessel ischemic disease. Patient will be discharged with a diagnosis of lower extremity weakness. Follow up with PCP in 2 days. - Diagnoses Provider Diagnoses: Lower extremity weakness Discharge ED - Sign-Out/Discharge Documenting (check all that apply): Patient Departure - Discharge - Discharge Plan Condition: Stable Disposition: HOME Patient Education Materials: Weakness (ED) Referrals: Prabha Washington MD [Primary Care Provider] - Additional Instructions: I suspect much of your symptoms are residuae of being so ill recently with sepsis. I do not see any hard neurologic findings on your exam, like decreased sensation in the perineum, abnormal movements with reflex testing, or decreased tone of the anal sphincter. However the leg weakness is somewhat concerning and I think you should have your spine/neurosurgeon see you again in the near future to see if another MRI is needed. Otherwise I am not recommending any change in your medications. We will get culture results on the urine sample in the next few days, if they are positive and you need further treatment we will contact you. - Billing Disposition and Condition Condition: STABLE Disposition: Home - Attestation Statements Document Initiated by Cara: Yes Documenting Scribe: Rita Clemens Provider For Whom Cara is Documenting (Include Credential): Krishna Callaway MD Scribe Attestation: IRita, scribed for Krishna Callaway MD on 02/26/19 at 1939. Scribe Documentation Reviewed: Yes Provider Attestation: The documentation as recorded by the Rita rawls accurately reflects the service I personally performed and the decisions made by me, Krishna Callaway MD Status of Scribe Document: Viewed
[2019-02-23 20:49] LABS: ABS Basophils 0.1 10^3/ul (0-0.2); ABS Eosinophils 0.5 10^3/ul (0-0.6); ABS Lymphocytes 1.4 10^3/ul (1.0-4.8); ABS Monocytes 1.1 10^3/ul (0-0.8); ABS Neutrophils 8.3 10^3/ul (1.5-7.7); Eosinophil % 4.2 %; Hematocrit 30 % (42-52); Hemoglobin 9.8 g/dL (14.0-18.0); Mean Corpuscular HGB Conc 33 g/dL (31-36); Mean Corpuscular Hemoglobin 30 pg (27-31); Mean Corpuscular Volume 91 fL (80-94); Platelet Count 312 10^3/uL (150-450); Red Blood Count 3.32 10^6 /uL (4.18-5.48); Red Cell Distribution Width 13 % (10-15); White Blood Count 11.3 10^3/uL (3.5-10.8)
[2019-02-23 21:08] LABS: Albumin 3.9 g/dL (3.2-5.2); Albumin/Globulin Ratio 1.1 (1-3); BUN/Creatinine Ratio 18.8 (8-20); Calcium 9.3 mg/dL (8.6-10.3); EGFR African American 29.5 (>60); EGFR Non-African American 24.4 (>60); Globulin 3.5 g/dL (2-4); Potassium 4.9 mmol/L (3.5-5.0); Total Bilirubin 0.3 mg/dL (0.2-1.0); Total Protein 7.4 g/dL (6.4-8.9)
[2019-02-23 21:10] LABS: Troponin I 0.01 ng/mL (<0.04)
[2019-02-23 21:31] LABS: TSH (Thyroid Stimulating Horm) 1.05 mcIU/mL (0.34-5.60)
[2019-02-23 22:06] LABS: Urine Appearance Cloudy; Urine Bacteria 1+ (Absent); Urine Bilirubin Negative (Negative); Urine Blood Negative (Negative); Urine Color Yellow; Urine Glucose Negative (Negative); Urine Ketones Negative (Negative); Urine Nitrite Negative (Negative); Urine Protein Negative (Negative); Urine Red Blood Cell 1+(3-5/hpf) (Absent); Urine Specific Gravity 1.012 (1.010-1.030); Urine Urobilinogen Negative (Negative); Urine White Blood Cell 3+(>20/hpf) (Absent)
[2019-02-23 23:13] VITALS: BP 105/50
== END 2019-02-23 23:12 | disposition home or self-care (01) ==
LOC: ED 19:37
DX: R53.1 Weakness (principal); Z79.01 Long term (current) use of anticoagulants; I25.10 Atherosclerotic heart disease of native coronary artery without angina pectoris; N50.819 Testicular pain, unspecified; I25.2 Old myocardial infarction; E78.00 Pure hypercholesterolemia, unspecified; Z86.718 Personal history of other venous thrombosis and embolism; Z85.46 Personal history of malignant neoplasm of prostate
CPT/HCPCS: 36415; 70450; 80053; 81003; 81015; 83605; 84443; 84484; 85025; 87086; 99282

== ENCOUNTER 2019-03-04 13:41 | Emergency (ER) | payer BC ==
--- OUTSIDE RECORDS SUMMARY | 2019-03-04 14:03 | XMS REPORT | Continuity of Care Document ---
:1945 External Reference #:[id number] Author Name Jigar Canales MD (transmitted by agent of provider Cee Zhang) Address [address] [address] Care Team Providers Name Role Phone Chuy Escalera MD - Endocrinology, Care Team Information Dental Manager [phone] Diabetes & Metabolism Prabha Washington MD - Internal Care Team Information Dental Manager Medicine Problems Active Problems Provider Date Type 2 diabetes mellitus Kiran Davis, 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/2007 Martir,FACP Neuralgia Neuritis & Radiculitis Kiran Davis, 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/2007 Unspecified Martir,FACP Lyme disease Kiran Davis, 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/2007 Martir,FACP Pure hypercholesterolemia Kiran Davis, 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/2007 Martir,FACP 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, 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 Martir,FACP Anticoagulants White Kid Buffer (Current) Use Kiran Davis, 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/2007 Encounter Martir,FACP Sleep apnea Kiran Davis, Onset: 06/18/2007 Martir,FACP Peripheral venous insufficiency Kiran Davis, Onset: 06/18/2007 Martir,FACP Diabetic polyneuropathy Kiran Davis, Onset: 10/07/2007 Martir,FACP 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 Kiran Davis, Onset: 06/17/2008 mellitus Martir,FACP Hyperlipidemia Wjociech Jones M.D., [facility], Onset: 04/16/2013 [facility] Benign essential hypertension Wojciech Jones M.D., [facility], Onset: 04/16/2013 [facility] Chronic ischemic heart disease Wojciech Jones M.D., [facility], Onset: 04/16/2013 [facility] Essential hypertension Wojciech Jones M.D., [facility], Onset: 08/01/2015 [facility] Atherosclerotic heart disease of [place] Wojciech Jones M.D., [facility], 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 [facility] Obesity Wojciech Jones M.D., [facility], Onset: 06/18/2016 [facility] Localized, primary osteoarthritis Sofya Borrego M.D. Onset: 11/03/2018 Coronary atherosclerosis Noble Chen M.D. Onset: 11/11/2018 Social History Type Date Description Comments Sex Unknown Tobacco Use Start: Unknown Never Smoked Cigarettes ETOH Use consumes 1-2 glasses of wine per week Recreational Drug Use Never Used Drugs Tobacco Use Start: Unknown Patient has never smoked Smoking Status Reviewed: 03/04/19 Patient has never smoked Exercise Type/Frequency Exercises rarely Allergies, Adverse Reactions, Alerts Active Allergies Reaction Severity Comments Date NKDA 04/06/2014 Latex Rash 04/06/2014 Adhesives blisters 04/06/2014 Inactive Allergies None 03/18/2007 NKDA 04/16/2013 S 06/03/2013 Medications Active Medications SIG Qnty Indications Ordering Provider Date Lisinopril 1 by mouth every Wojciech Jones M.D., 11/14/2018 5mg day [facility], [facility] Tablets Metformin HCL ER 1 tablet by 180tabs Nelson Vazquez MD 11/14/2018 mouth every day 750mg Tablets ER at bedtime 24HR Dermacea Gauze Roll Wrap foot bid 4rolls E11.621 Gavi Carreno, 2018 4"X4-1/8Yd Martir 4"X4-1/8 [facility] M[facility].172 Gauze Sponge Apply bid 60units M86.172 Gavi Carreno M.D. 07/19/2018 4"X4" Pads E11.621 Syringe/Luer Slip/1ML/27G use for injection 12units Bhupinder TonyYuniel Weller, 06/2018 X 1/2" of Vitamin B [...] 1 by mouth every Unknown Tablets day Ammonium Lactate use on legs daily Unknown 12% Cream (uses every 2-3 days) Pregabalin 1 twice a day for Unknown 50mg Capsules 90 days Cyclobenzaprine HCL take 1 tab 2 times Unknown 10mg Tablets daily as needed Oxycodone-Acetaminophen t tab every 6 hours Unknown 5-325mg for 10 days as Tablets needed Amoxicillin/Clavulanate Take One Tablet By Unknown Potassium Mouth Twice A Day 875-125mg Tablets Melatonin ER 1 by mouth every Unknown [...] Lancets use as directed 100units Kiran Davis, MRadha,FACP Freestyle Lite Test Strip use as directed qd 100units Kiran Davis, or prn Martir,FACP dx: 250.02 Medications Administered in Office Medication SIG Qnty Indications Ordering Provider Date Inj, Regadenoson, 0.1 MG Juan C Grey, DO [facility] 11/27/2018 Injection Technetium TC 99M Juan C Grey, DO [facility] 11/27/2018 Tetrofosmin, Per Unit Dose Up To 40 Millicuries Injection Technetium TC 99M Juan C Grey, DO [facility] 11/27/2018 Tetrofosmin, Per Unit Dose Up To 40 Millicuries Injection Depomedrol 40MG Sofya Borrego M.D. 11/03/2018 Injection Celestone 3 mg and 3mg Mela Novoa, 05/05/2014 Injection M.D. Celestone 3 mg and 3mg Mela Novoa, 04/06/2014 Injection M.DYuniel Immunizations CPT Code Status Date Vaccine Lot # [id number] Given 02/23/2010 Influenza Virus 3Yrs & Over 72809 Given 02/15/2009 Influenza Virus Vaccine, Pandemic Formulation 35609 Given 02/15/2009 Influenza Virus Vaccine, Pandemic Formulation [id number] Given 02/15/2009 Administration Swine Flu Shot 25157 Given 03/18/2007 Influenza Virus 3Yrs & Over 65607 Given 03/18/2007 Influenza Virus 3Yrs & Over [id number] 84677 Given 02/21/2000 Influenza Virus 3Yrs & Over Vital Signs Date Vital Result Comment 03/04/2019 8:04am Height 70 inches 5'10" Weight 208.00 lb Heart Rate 93 /min BP Systolic Sitting 130 mmHg BP Diastolic Sitting 73 mmHg O2 % BldC Oximetry 98 % BMI (Body Mass Index) 29.8 kg/m2 12/19/2018 10:00am Height 70 inches 5'10" Weight 212.00 lb BP Systolic 124 mmHg BP Diastolic 80 mmHg Pain Level 8 BMI (Body Mass Index) 30.4 kg/m2 Results Test Acquired Date Facility Test Result H/L Range Note Xray 12/25/2018 [facility] SP Lumbarsacral 4+ VWS <pending> [address] [place] [address] [phone] MRI Lumbar Spine W/O <pending> Laboratory test 12/16/2018 [facility] Thyroxine 6.06 g/dL Low 6.09-12.23 finding [address] [place] [address] [phone] TSH (Thyroid Stim Horm) 1.41 mcIU/mL Normal 0.34-5.60 Vitamin B12 351 pg/mL Normal 180-914 1 Comp Metabolic 12/16/2018 [facility] Sodium 141 mmol/L Normal 135-145 Panel [address] [place] [address] [phone] Potassium 4.9 mmol/L Normal 3.5-5.0 Chloride 111 [...] Egfr 46.9 >60 2 Lipid Profile 12/16/2018 [facility] Triglycerides 141 mg/dL 3 (Trig/Chol/HDL) [address] [place] [address] [phone] Cholesterol 144 mg/dL 4 HDL Cholesterol 38.3 mg/dL 5 LDL Cholesterol 78 mg/dL 6 Urine Microalbumin 12/16/2018 [facility] Ur Microalbumin 109.3 mg/L Random [address] (mg/L) [place] [address] [phone] Urine Creatinine 83.70 mg/dL Urine Microalbumin/Creatinine 130.5 High <31 Basic Metabolic 12/16/2018 [facility] Sodium 141 mmol/L Normal 135-[address] [place] [address] [phone] Potassium 4.9 mmol/L Normal 3.5-5.0 Chloride 111 mmol/L Normal 101-111 Co2 Carbon Dioxide 23 mmol/L Normal 22-32 Anion Gap 7 mmol/L Normal 2-11 Glucose 134 mg/dL High 70-100 Blood Urea Nitrogen 36 mg/dL High 6-24 Creatinine 1.74 mg/dL High 0.67-1.17 BUN/Creatinine Ratio 20.7 High 8-20 Calcium 9.6 mg/dL Normal 8.6-10.3 Egfr Non- 38.8 >60 Egfr 46.9 >60 7 CBC Auto 12/16/2018 [facility] White Blood 7.7 10^3/uL Normal 3.5-10.[address] [place] [address] [phone] Red Blood Count 3.90 10^6/uL Low 4.18-5.48 [...] Blood Cells % 0.0 Laboratory test 12/16/2018 [facility] Total Protein 57 mg/dL finding [address] [place] [address] [phone] Urinalysis Profile 12/16/2018 [facility] Urine Color Yellow [address] [place] [address] [phone] Urine Appearance Cloudy Urine Specific [place] 1.011 Normal 1.010-1.030 Urine pH 6.0 Normal [...] Bacteria 1+ Abnormal Absent Laboratory test 12/16/2018 [facility] Creatinine Random 83.97 mg /dL finding [address] [place] [address] [phone] Urine Culture And 12/16/2018 [facility] Urine Culture SEE RESULT [address] [place] [address] [phone] Lipid Profile 11/22/2018 [facility] Triglycerides 89 mg/dL 10 (Trig/Chol/HDL) [address] [place] [address] [phone] Cholesterol 135 mg/dL 11 HDL Cholesterol 41.3 mg/dL 12 LDL Cholesterol 76 mg/dL 13 CBC Auto 11/22/2018 [facility] White Blood 9.1 10^3/uL Normal 3.5-10.[address] [place] [address] [phone] Red Blood Count 3.94 10^6/uL Low 4.18-5.48 [...] % Nucleated Red Blood Cells % 0.0 Comp Metabolic 11/22/2018 [facility] Sodium 140 mmol/L Normal 135-[address] [place] [address] [phone] Chloride 111 mmol/L Normal 101-111 Co2 Carbon [...] Egfr Non- 39.0 >60 Egfr 47.2 >60 14 Potassium 5.2 mmol/L High 3.5-5.0 Anion Gap 6 mmol/L Normal 2-11 Laboratory test 11/22/2018 [facility] Hemoglobin A1c 7.1 % High 4.0-5.[address] (Glyco HGB) [place] [address] [phone] TSH (Thyroid Stim Horm) 1.22 mcIU/mL Normal 0.34-5.60 Total Protein 24HR 11/22/2018 [facility] Urine Collection Time [address] [place] [address] [phone] Urine Total Volume 2350 mL Urine TP Concentration 43 mg/dL Urine Total Protein/24HR 1010 mg/24Hr High 0-165 Creatinine Clearance 11/22/2018 [facility] Urine Collection [address] [place] [address] [phone] Urine Total Volume 2350 mL Creatinine, Serum 1.73 mg/dL High 0.51-0.95 Urine Creatinine Concentration 68.77 mg/dL Creatinine Clearance 65 mL/min Low 97-137 Laboratory test 11/22/2018 [facility] Fructosamine 253 mcmol/L 200 - [address] [place] [address] [phone] Vitamin B12 327 pg/mL Normal 180-914 17 Vitamin D Total 25(Oh) 25.1 ng/mL Normal 20-50 18 Lyme Screen W/ Reflex To WB Negative Negative Tick-Borne 11/22/2018 [facility] Anaplasma <1:64 <1:64 [address] [place] [address] [phone] Babesiosis Evaluation <1:64 titer <1:64 20 Ehrlichia chaffeensis IgG AB <1:64 titer <1:64 21 Lyme Disease Serology Negative Negative 22 Lipid Panel - 11/22/2018 [facility] Creatine 94 U/L Normal 10- [address] Kinase(CK) [place] [address] [phone] Laboratory test 10/03/2018 [facility] Troponin-I 0.00 <0.[address] (TnI) ng/[place] [address] [phone] CBC Auto Diff 10/03/2018 [facility] White Blood 8.3 Normal 3.5 -10.[address] Count 10^3/[place] [address] [phone] Red Blood Count 3.60 10^6/uL Low 4.18-5.48 [...] Blood Cells % 0.0 Laboratory test 10/03/2018 [facility] Lactic Acid 0.6 mmol/L Normal 0.5-2.0 24 finding [address] [place] [address] [phone] Comp Metabolic 10/03/2018 [facility] Sodium 140 mmol/L Normal 135-145 Panel [address] [place] [address] [phone] Potassium 4.9 mmol/L Normal 3.5-5.0 Co2 Carbon [...] Anion Gap 3 mmol/L Normal 2-11 Laboratory test 10/03/2018 [facility] Troponin-I (TnI) 0.01 ng/ mL <0.04 26 finding [address] [place] [address] [phone] 1 Normal Range 180 to 914 Indeterminate [...] of blood. 9 SEE RESULT BELOW Name: MANCINIDARIO : [address]: Prabha Washington MD Acct: [id number] Unit: [id number] AGE: 73 Location: LAB Re12/16/18 SEX: M Status: REG REF SPEC: [id number] JAROD: 12/16/18-[address] [facility] [address]: Jigar Canales MD REQ: [id number] RECD: 12/16/182 STATUS: [facility] DR: Prabha Washington MD PC _ SOURCE: URINE SPDESC: ORDERED: Urine Culture Procedure Result Reported Site Urine Culture Final 12/18/18- 0842 ML Organism 1 [employer] F[employer] [place] Count 25-50,000 (Moderate) CFU/ML 1. CITROBA[employer]ER FREUNDII [...] . END OF REPORT DEPARTMENT OF PATHOLOGY, [address] [place] [address] Jorge Luis Davis M.D. Director [facility] # [id number] 10 Desirable: <150 Borderline High: 150-199 High: 200-499 Very High: >500 11 Desirable: <200 Borderline High: 200-239 High: >239 12 Low: <40 Desirable: 40-60 High: >60 13 Desirable: <100 Near Optimal: 100-129 Borderline High: 130-159 High: 160-189 Very High: >189 14 Because ethnic data is not always readily [...] 15-29 5 Kidney failure <15 (or dialysis) 15 Therapeutic target for the treatment of diabetes mellitus patients is <7% HBA1C, and in selective patients <6.0%. Please refer to [place] Diabetes Association diabetic care guidelines for further information. 16 Test Performed by: [facility] - [address] [address] 17 Normal Range 180 to 914 Indeterminate Range 145 to 180 Deficient Range <145 18 Total 25-Hydroxyvitamin D2 and D3 (25-OH-VitD) <10 ng/mL (severe deficiency) 10-19 ng/mL (mild to moderate deficiency) 20-50 ng/mL (optimum levels) 51-80 ng/mL (increased risk of hypercalciuria) >80 ng/mL (toxicity possible) 19 ADDITIONAL INFORMATION This test was developed using an analyte specific reagent. Its performance characteristics were determined by [facility] in a manner consistent with CLIA requirements. This test has not been cleared or approved by the U.S. Food and Drug Administration. 20 ADDITIONAL INFORMATION This test was developed using an analyte specific reagent. Its performance characteristics were determined by [facility] in a manner consistent with CLIA requirements. This test has not been cleared or approved by the U.S. Food and Drug Administration. 21 ADDITIONAL INFORMATION This test was developed using an analyte specific reagent. Its performance characteristics were determined by [facility] in a manner consistent with CLIA requirements. This test has not been cleared or approved by the U.S. Food and Drug Administration. 22 No evidence of antibodies to B. burgdorferi detected. False negative results may occur in recently infected patients (<=2 weeks) due to low or undetectable antibody levels to B. burgdorferi. If recent exposure is suspected, a second sample should be collected and tested in 2-4 weeks. Test Performed by: [facility] - [facility] [address] [place] [address] 23 Troponin-I testing on Plasma Separator Tubes (PST) has a known false positive rate of 0.20-0.40%. All positive troponins reflex immediately to secondary confirmatory testing. Using the [employer] DxI 800 Access Immunoassay systems, the 99th percentile upper reference limit was demonstrated to be < 0.03 ng/mL. 24 [facility] Severe Sepsis and Septic Shock Management Bundle [...] was demonstrated to be < 0.03 ng/mL. Procedures Date Code Description Status 02/09/2019 23036 ECHO Transthorasic Realtime 2D W Doppler & Color Flow Completed Hosp 11/27/2018 50990 Stress Test Completed 11/27/2018 27779 Myocardial Perfusion Imaging Tomographic (Spect) Completed Multiple Studies 11/11/2018 71761 EKG Tracing & Interpretation Completed 11/03/2018 72536 Inject/Drain Joint/Bursa Major W/O US Completed 05/15/2010 [id number] Diabetic Foot Exam Completed 04/28/2010 [id number] Diabetic Foot Exam Completed 02/28/2010 028023830 Diabetic Retinal Eye Exam Completed 04/01/2008 522555106 Diabetic Retinal Eye Exam Completed 02/26/2008 841465847 Diabetic Foot Exam Completed 02/05/2008 832445296 Diabetic Foot Exam Completed 02/25/2007 347797292 Diabetic Retinal Eye Exam Completed Medical Devices Description No Information Available Encounters Type Date Location Provider Dx Diagnosis Office Visit 02/11/2019 [facility] Ada Santos, E11.40 Type 2 diabetes 9:51a keri Maria MD mellitus with Hospitalists diabetic neuropathy, unsp E11.22 Type 2 diabetes mellitus w diabetic chronic kidney disease I25.10 Athscl heart disease of [place] coronary artery w/o ang pctrs Office Visit 02/10/2019 9:51a [facility] Iris E11.40 Type 2 diabetes Assoc,keri Hopper D.O. mellitus with Hospitalists diabetic neuropathy, unsp E11.22 Type 2 diabetes mellitus w diabetic chronic kidney disease N12 Tubulo-interstitial nephritis, not spcf as acute or chronic N18.3 Chronic kidney disease, stage 3 (moderate) Office Visit 02/09/2019 9:50a [facility] Iris A41.9 Sepsis, Assoc,keri Hopper D.O. unspecified Hospitalists organism R65.21 Severe sepsis with septic shock N12 Tubulo-interstitial nephritis, not spcf as acute or chronic N13.30 Unspecified hydronephrosis E11.40 Type 2 diabetes mellitus with diabetic neuropathy, unsp Office Visit 02/08/2019 [facility] Milly A41.9 Sepsis, 9:50a Assockeri MD unspecified Hospitalists organism R65.21 Severe sepsis with septic shock N12 Tubulo-interstitial nephritis, not spcf as acute or chronic N13.30 Unspecified hydronephrosis E11.9 Type 2 diabetes mellitus without complications Office Visit 02/07/2019 [facility] Bethany Saravia A41.9 Sepsis, 9:50a Asskeri pleitez M.D. 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 I25.10 Athscl heart disease of [place] coronary artery w/o ang pctrs M86.9 Osteomyelitis, unspecified E78.00 Pure hypercholesterolemia, unspecified Office Visit 11/14/2018 [facility] Damon Coch, 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 Jigar Canales MD disorders 03/04/2019 I12.9 Hypertensive chronic kidney disease with Jigar Canales MD stage 1 through stage 4 chronic kidney disease, or unspecified chronic kidney disease 02/12/2019 A41.9 Sepsis, unspecified organism Suemeghan Sarah PA-C 02/12/2019 R65.21 Severe sepsis with septic shock Sue Sarah PA-C 02/12/2019 E11.40 Type 2 diabetes mellitus with diabetic Sue Sarah PA -C neuropathy, unspecified 02/12/2019 E11.22 Type 2 diabetes mellitus with diabetic Sue Sarah, PA -C chronic kidney disease 02/12/2019 N18.3 Chronic kidney disease, stage 3 Suemeghan Sarah PA-C (moderate) 02/12/2019 I25.10 Atherosclerotic heart disease of [place] Sue Sarah PA-C coronary artery without angina pectoris 02/11/2019 E11.40 Type 2 diabetes mellitus with diabetic Ada Santos MD neuropathy, unspecified 02/11/2019 E11.22 Type 2 diabetes mellitus with diabetic Ada Santos MD chronic kidney disease 02/11/2019 I25.10 Atherosclerotic heart disease of [place] Ada Santos MD coronary artery without angina pectoris 02/10/2019 E11.40 Type 2 diabetes mellitus with diabetic Iris Hopper D.O. neuropathy, unspecified 02/10/2019 E11.22 Type 2 diabetes mellitus with diabetic Iris Hopper D.O. chronic kidney disease 02/10/2019 N12 Tubulo-interstitial nephritis, not Iris Hopper, D.O. specified as acute or chronic 02/10/2019 N18.3 Chronic kidney disease, stage 3 Iris Ward, D.O. (moderate) 02/09/2019 R78.81 Bacteremia Mak Boswell M.D. 02/09/2019 A41.9 Sepsis, unspecified organism Iris Hopper D.O. 02/09/2019 R65.21 Severe sepsis with septic shock Iris Hopper D.O. 02/09/2019 N12 Tubulo-interstitial nephritis, not Iris Ward, D.O. specified as acute or chronic 02/09/2019 N13.30 Unspecified hydronephrosis Iris Hopper D.O. 02/09/2019 E11.40 Type 2 diabetes mellitus with diabetic Iris Hopper D.O. neuropathy, unspecified 02/08/2019 A41.9 Sepsis, unspecified organism Milly Michaels MD 02/08/2019 R65.21 Severe sepsis with septic shock Milly Michaels MD 02/08/2019 N12 Tubulo-interstitial nephritis, not Milly Michaels MD specified as acute or chronic 02/08/2019 N13.30 Unspecified hydronephrosis Milly Michaels MD 02/08/2019 E11.9 Type 2 diabetes mellitus without Milly Michaels MD complications 02/07/2019 A41.9 Sepsis, unspecified organism Bethany Saravia M.D. 02/07/2019 R65.21 Severe sepsis with septic shock Bethany Saravia M.D. 02/07/2019 N39.0 Urinary tract infection, site not Bethany Saravia M.D. 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 nephropathy 11/27/2018 I25.10 Coronary atherosclerosis Noble Chen M.D. 11/27/2018 R07.89 Chest discomfort Noble Chen M.D. 11/14/2018 Z79.84 prison (current) use of oral Nelson Vazquez MD hypoglycemic drugs 11/14/2018 E11.21 Type 2 diabetes mellitus with diabetic Nelson Vazquez MD nephropathy 11/14/2018 G60.0 Hereditary motor and sensory neuropathy Nelson Vazquez MD 11/11/2018 E11.69 Type 2 diabetes mellitus with other Noble Chen M.D. specified complication 11/11/2018 R07.89 Chest discomfort Noble Chen M.D. 11/11/2018 I25.10 Coronary atherosclerosis Noble Chen M.D. 11/11/2018 E78.00 Hypercholesterolemia Noble Chen M.D. 11/03/2018 M25.562 Pain in left knee Sofya Borrego M.D. 11/03/2018 M25.462 Effusion, left knee Sofya Borrego M.D. 11/03/2018 M17.12 Unilateral primary osteoarthritis, left Sofya Borrego M.D. knee Plan of Treatment Future Appointment(s):03/11/2019 8:00 am - Jigar Canales MD at [facility] Mcubgkhlza27/14/2020 8:30 am - Joanne Campos DNP, RN, WEL[employer]CH[employer]IC-BC at [facility]05/19/2019 8:00 am - Nelson Vazquez MD at [facility]03/04/2019 - Jigar Canales MDN17.9 Acute kidney failure, unspecifiedFollow up:Blood work today f/u in 1 week with new Blood work tooE11.40 Type 2 diabetes mellitus with diabetic neuropathy, kpvdtpmjdanC34.3 Chronic kidney disease, stage 3 (moderate)N12 Tubulo- interstitial nephritis, not specified as acute or susflfuT80.0 Urinary tract infection, site not xuyvpebxeL95.1 Hypertension secondary to other renal agmqpjkrwB97.9 Hypertensive chronic kidney disease with stage 1 through stage 4 chronic kidney disease, or unspecified chronic kidney disease Functional Status Description No Information Available Mental Status Description No Information Available Referrals Description No Information Available
[2019-03-04] MEDS ORDERED: NS 0.9% 1000 ML** 1,000 ML IV ONE (15:01)
[2019-03-04 15:28] LABS: Urine Appearance Clear; Urine Bilirubin Negative (Negative); Urine Blood Negative (Negative); Urine Color Yellow; Urine Glucose Negative (Negative); Urine Ketones Negative (Negative); Urine Nitrite Negative (Negative); Urine Protein Negative (Negative); Urine Urobilinogen Negative (Negative)
[2019-03-04 15:31] LABS: Urine Bacteria Absent (Absent); Urine Red Blood Cell Absent (Absent); Urine White Blood Cell 1+(6-10/hpf) (Absent)
--- NOTE | 2019-03-04 15:34 | ED ---
Complex/Multi-Sys Presentation - HPI Summary HPI Summary: 73 year old M presenting to [facility] per referral from his director workforce management Dr. Canales at [facility] accompanied by who complains worsening kidney function and diarrhea. Patient attributes these Sx to having started taking Augmentin . Patient was evaluated by director workforce management who sent the patient to ED due to worsening renal function and need for IV fluids. notes that the patient had been admitted at the end of January for sepsis 2/2 UTI. He was discharged from [facility] 02/12/19. Patient was evaluated on 02/23/19 for stroke-like Sx. Brain CT showed no acute findings and the patient was discharged to home. It is also noted that the patient has prostate cancer and was treated with radiation at [facility] in [place] and had an ileal conduit done at [facility]. The patient denies complaints. No fevers. Still making urine. - History Of Current Complaint Chief Complaint: EDGeneral Time Seen by Provider: 03/04/19 14:48 Hx Obtained From: Patient Onset/Duration: Lasting Days, Still Present Timing: Days Severity Initially: Mild Aggravating Factor(s): nothing Alleviating Factor(s): nothing Associated Signs And Symptoms: Positive: Diarrhea, Other - worsening renal failure - Allergies/Home Medications Allergies/Adverse Reactions: Allergies Allergy/AdvReac Type Severity Reaction Status Date / Time Adhesive Tape [Silk Tape] Allergy Unknown Verified 02/23/19 19:50 Reaction Details latex Allergy Swelling Verified 02/23/19 19:50 PMH/Surg Hx/FS Hx/Imm Hx Endocrine/Hematology History: Reports: Hx Anticoagulant Therapy, Hx Diabetes Denies: Hx Sickle Cell Disease, Hx Thyroid Disease, Hx Anemia, Hx Unexplained Bleeding Cardiovascular History: Reports: Hx Cardiomegaly, Hx Coronary Artery Disease, Hx Deep Vein Thrombosis, Hx Hypercholesterolemia, Hx Myocardial Infarction, Hx Peripheral Vascular Disease, Other Cardiovascular Problems/Disorders - cardiomegaly , Denies: Hx Aneurysm, Hx Angina, Hx Angioplasty, Hx Auto Implanted Cardiovert Defib, Hx Cardiac Arrest, Hx Congenital Heart Disease, Hx Congestive Heart Failure, Hx Embolism, Hx Hypotension, Hx Hypertension, Hx Pacemaker/ICD, Hx Rheumatic Fever, Hx Syncope, Hx Valvular Heart Disease Respiratory History: Reports: Hx Asthma, Hx Chronic Bronchitis, Hx Pneumonia, Hx Seasonal Allergies, Hx Sleep Apnea, Other Respiratory Problems/Disorders - FREQUENT PNEUMONIA Denies: Hx Chronic Obstructive Pulmonary Disease (COPD), Hx Pulmonary Embolism GI History: Reports: Other GI Disorders - 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 Denies: Hx Cirrhosis, Hx Crohn's Disease, Hx Diverticulosis, Hx Gall Bladder Disease, Hx Gastroesophageal Reflux Disease, Hx Gastrointestinal Bleed, Hx Hiatal Hernia, Hx Irritable Bowel, Hx Jaundice, Hx Obstructive Bowel, Hx Ileostomy, Hx Pyloric Stenosis, Hx Ulcer History: Reports: Other Problems/Disorders - Continent urinary diversion at [facility] Denies: Hx Acute Renal Failure, Hx Benign Prostatic Hyperplasia, Hx Chronic Renal Failure, Hx Dialysis, Hx Kidney Infection, Hx Kidney Stones Musculoskeletal History: Reports: Hx Arthritis, Hx Back Problems, Hx Bursitis - KNEE, Other Musculoskeletal History - osteomyleitis Denies: Hx Gout, Hx Osteoporosis, Hx Scoliosis Sensory History: Reports: Hx Contacts or Glasses Denies: Hx Legally Blind, Hx Deafness, Hx Hearing Aid Opthamlomology History: Reports: Hx Contacts or Glasses Denies: Hx Legally Blind Neurological History: Reports: Hx Nerve Disease - 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 urostomy Hx Anesthesia Reactions: No - Immunization History Date of Influenza Vaccine: 11/2016 Infectious Disease History: No Infectious Disease History: Denies: Hx Clostridium Difficile, Hx Hepatitis, Hx Human Immunodeficiency Virus (HIV), Hx of Known/Suspected MRSA, Hx Shingles, Hx Tuberculosis, Hx Known/ Suspected VRE, Hx Known/Suspected VRSA, History Other Infectious Disease, Traveled Outside the [place] in Last 30 Days - Family History Known Family History: Positive: Blood Disorder - FMHx of blood clots , Other - neg: anaesthesia reaction - Social History Alcohol Use: Occasionally Alcohol Amount: 1x week Hx Substance Use: No Substance Use Type: Reports: None Hx Tobacco Use: No Smoking Status (MU): Never Smoked Tobacco Have You Smoked in the Last Year: No Review of Systems Positive: Diarrhea Positive: other - renal failure per All Other Systems Reviewed And Are Negative: Yes Physical Exam - Summary Physical Exam Summary: Constitutional: Well-developed, Well-nourished, Alert. (-) Distressed Skin: Warm, Dry HENT: Normocephalic; Atraumatic Eyes: Conjunctiva normal Neck: Musculoskeletal ROM normal neck. (-) JVD, (-) Stridor, (-) Nuchal rigidity Cardio: Rhythm regular, rate normal, Heart sounds normal; Intact distal pulses; Radial pulses are 2+ and symmetric. (-) Murmur Pulmonary/Chest wall: Effort normal. (-) Respiratory distress, (-) Wheezes, (-) Rales Abd: Ileal conduit to RLQ; Soft, mild LLQ tenderness, (-) Distension, (-) Guarding, (-) Rebound Musculoskeletal: (-) Edema Lymph: (-) Cervical adenopathy Neuro: Alert, Oriented x3 Triage Information Reviewed: Yes Vital Signs On Initial Exam: Initial Vitals Temp Pulse Resp BP Pulse Ox 98.5 F 98 16 140/84 100 03/04/19 13:51 03/04/19 13:51 03/04/19 13:51 03/04/19 13:51 03/04/19 13:51 Vital Signs Reviewed: Yes Male Genital Exam: Positive: Other - ileal conduit to RLQ Procedures - Sedation Patient Received Moderate/Deep Sedation with Procedure: No Diagnostics - Vital Signs Vital Signs Temp Pulse Resp BP Pulse Ox 03/04/19 13:51 98.5 F 98 16 140/84 100 - Laboratory Result Diagrams: 03/04/19 15:55 03/04/19 19:00 Lab Statement: Any lab studies that have been ordered have been reviewed, and results considered in the medical decision making process. - Ultrasound RENAL US Ultrasound Interpretation Completed By: Radiologist Summary of Ultrasound Findings: RENAL US IMPRESSION: 1. Mild left hydronephrosis, similar in appearance to the comparison CT. examination. 2. No right hydronephrosis demonstrated. THIS REPORT WAS REVIEWED BY DR. PALACIOS ABDOMEN US Ultrasound Interpretation Completed By: Radiologist Summary of Ultrasound Findings: US ABDOMEN IMPRESSION: Normal examination. THIS REPORT WAS REVIEWED BY DR. PALACIOS. Re-Evaluation - Re-Evaluation 1707 Re-Evaluation Time: 17:07 Change: Unchanged Comment: ED physician spoke with , director workforce management who recommended bicarb. Physician will follow up with nephrology after US. First Eval Re-Evaluation Time: 19:39 Change: Unchanged Comment: updated on repeat BMP results Second Eval Re-Evaluation Time: 19:47 Change: Unchanged Comment: agrees to d/c Complex Multi-Symp Course/Dx Course Of Treatment: 73 y/o male w hx ideal conduit 2/2 prostate cx, recent UTI p/w YUN and diarrhea. - PE w well appearing male, NAD. Abd soft, mild LLQ tenderness for which he is being worked up for hernia. Labs from earlier nephrology apt w CO2 15, worsening Cr 3.2. - plan for IVF, US kidneys and LLQ given mild pain - Diagnoses Provider Diagnoses: Dehydration - Physician Notifications Discussed Care Of Patient With: Lucy Larose Time Discussed With Above Provider: 17:07 Instructed by Provider To: Other - 1706 - Patient's case was discussed with Dr. Larose, bicarb drip to be started. 5 - Patient's case was discussed with Dr. Larose, repeat BMP to be obtained. Discharge ED - Sign-Out/Discharge Documenting (check all that apply): Sign-Out Patient Signing out patient TO: Krishna Callaway - Discharge Plan Condition: Stable Disposition: HOME Prescriptions: Sodium Bicarbonate (ANTACID)* 1,300 mg PO BID #60 tab Patient Education Materials: Dehydration (ED) Referrals: Lucy Larose MD [Medical Doctor] - 1 Day Prabha Washington MD [Primary Care Provider] - Additional Instructions: Hold on taking your metformin for now, your director workforce management can restart it if needed. - Billing Disposition and Condition Condition: STABLE Disposition: Home - Attestation Statements Document Initiated by Scribe: Yes Documenting Scribe: LUIS RAMACHANDRAN Provider For Whom Cara is Documenting (Include Credential): KAM PALACIOS MD Scribe Attestation: LUIS Gipson, scribed for KAM PALACIOS MD on 03/04/19 at 2336. Scribe Documentation Reviewed: Yes Provider Attestation: The documentation as recorded by the LUIS rawls accurately reflects the service I personally performed and the decisions made by me, KAM PALACIOS MD Status of Scribe Document: Viewed
[2019-03-04 16:23] LABS: ABS Basophils 0.1 10^3/ul (0-0.2); ABS Eosinophils 0.5 10^3/ul (0-0.6); ABS Lymphocytes 1.6 10^3/ul (1.0-4.8); ABS Monocytes 0.9 10^3/ul (0-0.8); ABS Neutrophils 6.4 10^3/ul (1.5-7.7); Eosinophil % 5.5 %; Hematocrit 27 % (42-52); Hemoglobin 9.3 g/dL (14.0-18.0); Mean Corpuscular HGB Conc 34 g/dL (31-36); Mean Corpuscular Hemoglobin 30 pg (27-31); Mean Corpuscular Volume 89 fL (80-94); Mean Platelet Volume 7.2 fL (7.4-10.4); Platelet Count 200 10^3/uL (150-450); Red Blood Count 3.07 10^6 /uL (4.18-5.48); Red Cell Distribution Width 14 % (10-15); White Blood Count 9.5 10^3/uL (3.5-10.8)
[2019-03-04 16:40] LABS: Albumin 3.7 g/dL (3.2-5.2); Albumin/Globulin Ratio 1.2 (1-3); BUN/Creatinine Ratio 22.4 (8-20); Calcium 8.7 mg/dL (8.6-10.3); EGFR African American 23.1 (>60); EGFR Non-African American 19.1 (>60); Globulin 3.2 g/dL (2-4); Potassium 4.6 mmol/L (3.5-5.0); Total Bilirubin 0.3 mg/dL (0.2-1.0); Total Protein 6.9 g/dL (6.4-8.9)
[2019-03-04] MEDS ORDERED: Sodium Bicarbonate 8.4% IV* 50 ML VIAL IV ONE ×2 (17:04→17:05)
[2019-03-04] MEDS ORDERED: Sodium Bicarbonate 8.4% IV* 50 MEQ in D5W 1000 ML BAG* 1,000 ML IV ONE (18:00)
[2019-03-04 19:29] LABS: BUN/Creatinine Ratio 22.2 (8-20); Calcium 8.5 mg/dL (8.6-10.3); EGFR African American 22.9 (>60); EGFR Non-African American 18.9 (>60); Potassium 4.5 mmol/L (3.5-5.0)
--- NOTE | 2019-03-04 19:44 | ED ---
Progress - Progress Note Progress Note: This patient was signed out from Dr. Lin upon shift change on 03/04/19 at 1900, awaiting repeat BMP and pending disposition. Re-Evaluation - Re-Evaluation First Eval Re-Evaluation Time: 19:39 Change: Unchanged Comment: updated on repeat BMP results Second Eval Re-Evaluation Time: 19:47 Change: Unchanged Comment: agrees to d/c Course/Dx - Course Course Of Treatment: 73 y/o M signed out upon shift change awaiting repeat BMP and pending disposition. Repeat BMP without any significant abnormalities except for chloride 118, carbon dioxide 14, BUN 72, creatinine 3.24, BUN/ creatinine 22.2, glucose 125, and calcium 8.5. Carbon dioxide improved from [address] Larose, nephrology, updated on repeat BMP results, recommends d/c with sodium bicarbonate tablets. Patient will be discharged home with prescription for sodium bicarbonate tablets and follow up from Dr. Larose in 1 day and his primary care provider. He was advised to stop taking his metformin for now until seen by nephrology. Patient was instructed to return to Emergency Department for new or worsening symptoms. Patient understands and is agreeable to this plan. - Diagnoses Provider Diagnoses: Dehydration - Provider Notifications Discussed Care Of Patient With: Lucy Larose Time Discussed With Above Provider: 19:43 Instructed by Provider To: Other - Dr. Larose, nephrology, updated on repeat BMP results, recommends d/c with sodium bicarb tablets. Discharge ED - Sign-Out/Discharge Documenting (check all that apply): Patient Departure - Discharge - Discharge Plan Condition: Stable Prescriptions: Sodium Bicarbonate (ANTACID)* 1,300 mg PO BID #60 tab Patient Education Materials: Dehydration (ED) Referrals: Lucy Larose MD [Medical Doctor] - 1 Day Prabha Washington MD [Primary Care Provider] - Additional Instructions: Hold on taking your metformin for now, your tube maker can restart it if needed. - Attestation Statements Document Initiated by Scribe: Yes Documenting Scribe: Karissa Strange Provider For Whom Elzae is Documenting (Include Credential): Krishna Callaway MD Scribe Attestation: I, Karissa Strange, scribed for Krishna Callaway MD on 03/04/19 at 1957.
[2019-03-04 20:08] VITALS: BP 137/75
== END 2019-03-04 20:05 | disposition home or self-care (01) ==
LOC: ED 13:41
DX: E86.0 Dehydration (principal); N13.30 Unspecified hydronephrosis; N17.9 Acute kidney failure, unspecified; E11.40 Type 2 diabetes mellitus with diabetic neuropathy, unspecified; Z86.718 Personal history of other venous thrombosis and embolism; Z79.01 Long term (current) use of anticoagulants; Z95.5 Presence of coronary angioplasty implant and graft; Z91.040 Latex allergy status; Z91.048 Other nonmedicinal substance allergy status
CPT/HCPCS: 36415; 76705; 76775; 80048; 80053; 81003; 85025; 96360; 96361; 99283; J7060

== ENCOUNTER 2019-05-12 23:43 | Emergency (ER) | payer BC ==
--- OUTSIDE RECORDS SUMMARY | 2019-05-12 23:55 | XMS REPORT | Continuity of Care Document ---
:1945 External Reference #:[id number] Author Name Jigar Canales MD (transmitted by agent of provider Cee Zhang) Address [address] [address] Care Team Providers Name Role Phone Chuy Escalera MD - Endocrinology, Care Team Information [employer] [phone] Diabetes & Metabolism Prabha Washington MD - Internal Care Team Information [employer] [phone] Medicine Problems Active Problems Provider Date Type 2 diabetes mellitus Kiran Davis, 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/2007 Martir,FACP Neuralgia Neuritis & Radiculitis Kiran Davis, 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/2007 Unspecified Martir,FACP Lyme disease Kiran Davis, 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/2007 Martir,FACP Pure hypercholesterolemia Kiran Davis, 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/2007 Martir,FACP 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, 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 Martir,FACP Anticoagulants Taping Foreman (Current) Use Kiran Davis, 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/2007 Encounter Martir,FACP Sleep apnea Kiran Davis, Onset: 06/18/2007 Martir,FACP Peripheral venous insufficiency Kiran Davis, Onset: 06/18/2007 Martir,FACP Diabetic polyneuropathy Kiran Davis, Onset: 10/07/2007 Martir,FACP 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 Kiran Davis, Onset: 06/17/2008 mellitus Martir,[facility] Hyperlipidemia Wojciech Jones M.D., [facility], Onset: 04/16/2013 [facility] Benign essential hypertension Wojciech Jones M.D., [facility], Onset: 04/16/2013 [facility] Chronic ischemic heart disease Wojciech Jones M.D., [facility], Onset: 04/16/2013 [facility] Essential hypertension Wojciech Jones M.D., [facility], Onset: 08/01/2015 [facility] Atherosclerotic heart disease of [place] Wojciech Jones M.D., [facility], 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 [facility] Obesity Wojciech Jones M.D., [facility], Onset: 06/18/2016 [facility] Localized, primary osteoarthritis Sofya Borrego M.D. Onset: 11/03/2018 Coronary atherosclerosis Noble Chen M.D. Onset: 11/11/2018 Social History Type Date Description Comments Sex Unknown Tobacco Use Start: Unknown Never Smoked Cigarettes ETOH Use consumes 1-2 glasses of wine per week Recreational Drug Use Never Used Drugs Tobacco Use Start: Unknown Patient has never smoked Smoking Status Reviewed: 04/22/19 Patient has never smoked Exercise Type/Frequency Exercises rarely Allergies, Adverse Reactions, Alerts Active Allergies Reaction Severity Comments Date NKDA 04/06/2014 Latex Rash 04/06/2014 Adhesives blisters 04/06/2014 Inactive Allergies None 03/18/2007 NKDA 04/16/2013 S 06/03/2013 Medications Active Medications SIG Qnty Indications Ordering Provider Date Ferrousul 1 tab by mouth 90tabs Jigar Rodriguez, 03/25/2019 325(65Fe) mg 3 times a week MD Tablets Sodium Bicarbonate 2 tab by mouth 360tabs Jigar Canales, 03/11/2019 twice times MD 650mg Tablets daily Gabapentin By mouth twice Jigar Rodriguez, 03/11/2019 300mg daily MD Capsules Lisinopril 1 by mouth Wojciech Jones M.D., 11/14/2018 5mg Tablets every day [facility] Dermacea Gauze Roll Wrap foot bid 4rolls E11.621 Gavi Carreno, 2018 4"X4-8 Martir 4"X4-8 Misc M86.172 Gauze Sponge Apply bid 60units [...] M.D., 08/28/2016 40mg bedtime FACC, FSCAI Tablets Nitrostat 1 sl q5mins x3 as 25tabs Wojciech Jones M.D., 04/24/2013 0.4mg Tablets Sub needed for chest FACC, FSCAI pain, if no relief call 911 Lidocaine Pain Relief for back pain use 1 Unknown 4% daily Patches Cranberry daily Unknown 200mg Capsules Ammonium Lactate use on legs daily Unknown 12% Cream (uses every 2-3 days) Vitamin D-3 1 by mouth every day [...] directed qd 100units Kiran Davis, Strip or prn Martir,FACP dx: 250.02 History Medications Metformin HCL ER 1 tablet by mouth 180tabs Nelson Vazquez MD 11/14/2018 - every day at 02/13/2019 750mg Tablets ER bedtime 24HR Medications Administered in Office Medication SIG Qnty Indications Ordering Provider Date Inj, Regadenoson, 0.1 MG Juan C Grey, DO [facility] 11/27/2018 Injection Technetium TC 99M Juan C Grey, DO [facility] 11/27/2018 Tetrofosmin, Per Unit Dose Up To 40 Millicuries Injection Technetium TC 99M Juan C Grey, DO [facility] 11/27/2018 Tetrofosmin, Per Unit Dose Up To 40 Millicuries Injection Depomedrol 40MG Sofya Borrego M.D. 11/03/2018 Injection Celestone 3 mg and 3mg Mela Novoa, 05/05/2014 Injection M.DYuniel Celestone 3 mg and 3mg Mela Novoa, 04/06/2014 Injection MYunielDYuniel Immunizations CPT Code Status Date Vaccine Lot # [id number] Given 02/23/2010 Influenza Virus 3Yrs & Over 70451 Given 02/15/2009 Influenza Virus Vaccine, Pandemic Formulation 33700 Given 02/15/2009 Influenza Virus Vaccine, Pandemic Formulation [id number] 13028 Given 02/15/2009 Administration Swine Flu Shot 30872 Given 03/18/2007 Influenza Virus 3Yrs & Over 00520 Given 03/18/2007 Influenza Virus 3Yrs & Over [id number] 77744 Given 02/21/2000 Influenza Virus 3Yrs & Over Vital Signs Date Vital Result Comment 04/22/2019 8:05am Height 70 inches 5'10" Weight 215.00 lb BMI (Body Mass Index) 30.8 kg/m2 03/25/2019 8:08am Height 70 inches 5'10" Weight 215.00 lb BMI (Body Mass Index) 30.8 kg/m2 Results Test Acquired Date Facility Test Result H/L Range Note Neph Routine 04/21/2019 [facility] Total Protein 33 mg/dL [address] [place] [address] [phone] Creatinine Random Urine 50.15 mg/dL 2 CBC Auto 04/21/2019 [facility] White Blood 9.0 10^3/uL Normal 3.5-10.[address] [place] [address] [phone] Red Blood Count 3.49 10^6/uL Low 4.18-5.48 Hemoglobin 10.4 g/dL Low 14.0-18.0 Hematocrit 31 % Low 42-52 Mean Corpuscular Volume 89 fL Normal 80-94 Mean Corpuscular Hemoglobin 30 pg Normal 27-31 Mean Corpuscular HGB Conc 34 g/dL Normal 31-36 Red Cell Distribution Width 15 % Normal 10-15 Platelet Count 281 10^3/uL Normal 150-450 Mean Platelet Volume 7.1 fL Low 7.4-10.4 Abs Neutrophils 5.5 10^3/uL Normal 1.5-7.7 Abs Lymphocytes 1.7 10^3/uL Normal 1.0-4.8 Abs Monocytes 1.1 10^3/uL High 0-0.8 Abs Eosinophils 0.6 10^3/uL Normal 0-0.6 Abs Basophils 0.1 10^3/uL Normal 0-0.2 Abs Nucleated RBC 0.0 10^3/uL Granulocyte % 61.2 % Lymphocyte % 19.2 % Monocyte % 12.0 % Eosinophil % 6.8 % Basophil % 0.8 % Nucleated Red Blood Cells % 0.0 Basic Metabolic 04/21/2019 [facility] Sodium 140 mmol/L Normal 135-[address] [place] [address] [phone] Potassium 4.7 mmol/L Normal 3.5-5.0 Chloride 111 mmol/L Normal 101-111 Co2 Carbon Dioxide 22 mmol/L Normal 22-32 Anion Gap 7 mmol/L Normal 2-11 Glucose 104 mg/dL High 70-100 Blood Urea Nitrogen 43 mg/dL High 6-24 Creatinine 1.81 mg/dL High 0.67-1.17 BUN/Creatinine Ratio 23.8 High 8-20 Calcium 9.0 mg/dL Normal 8.6-10.3 Egfr Non- 37.0 >60 Egfr 44.8 >60 3 Urinalysis Profile 04/21/2019 [facility] Urine Color Yellow [address] [place] [address] [phone] Urine Appearance Cloudy Urine Specific [place] 1.010 Normal 1.010-1.030 Urine pH 6.0 Normal 5-9 Urine Urobilinogen Negative Negative Urine Ketones Negative Negative Urine Protein Negative Negative Urine Leukocytes 1+ Abnormal Negative Urine Blood Negative Negative * * Abnormal Negative 4 Urine Nitrite Negative Negative Urine Bilirubin Negative Negative Urine Glucose Negative Negative Urine White Blood Cell 2+(11-20/hpf) Abnormal Absent Urine Red Blood Cell Absent Absent Urine Bacteria Absent Absent Laboratory test 04/21/2019 [facility] Albumin 4.5 g/dL Normal 3.2-5.2 finding [address] [place] [address] [phone] Iron & Iron 04/21/2019 [facility] Iron 38 g/dL Low 50-212 Binding Capacity [address] [place] [address] [phone] Unsaturated Iron Binding < 394 g/dL Total Iron Binding Capacity 409 g/dL Normal 250-450 Transferrin 292 mg/dL Normal 203-362 % Iron Saturation 9 % Low 15-55 Laboratory test 04/21/2019 [facility] Ferritin 60.5 ng/mL Normal 24-336 finding [address] [place] [address] [phone] Urine Culture And 03/24/2019 [facility] Urine SEE RESULT 5 Sensitivities [address] [facility] [place] [place] [address] [phone] Laboratory test 03/24/2019 [facility] Ferritin 80.8 ng/mL Normal 24-336 finding [address] [place] [address] [phone] Iron & Iron 03/24/2019 [facility] Iron 57 g/dL Normal 50- 212 [address] [place] [address] [phone] Unsaturated Iron Binding < 342 g/dL Total Iron Binding Capacity 357 g/dL Normal 250-450 Transferrin 255 mg/dL Normal 203-362 % Iron Saturation 16 % Normal 15-55 Laboratory test 03/24/2019 [facility] Albumin 4.0 g/dL Normal 3.2-5.2 finding [address] [place] [address] [phone] Urinalysis 03/24/2019 [facility] Urine Color Yellow Profile [address] [place] [address] [phone] Urine Appearance Cloudy Urine Specific [place] 1.010 Normal 1.010-1.030 Urine pH 6.0 Normal 5-9 Urine Urobilinogen Negative Negative Urine Ketones Negative Negative Urine Protein Negative Negative Urine Leukocytes Trace Abnormal Negative Urine Blood Negative Negative * * Abnormal Negative 6 Urine Nitrite Negative Negative Urine Bilirubin Negative Negative Urine Glucose Negative Negative Urine White Blood Cell 1+(6-10/hpf) Abnormal Absent Urine Red Blood Cell Absent Absent Urine Bacteria Absent Absent Basic Metabolic 03/24/2019 [facility] Sodium 139 mmol/L Normal 135-[address] [place] [address] [phone] Potassium 5.0 mmol/L Normal 3.5-5.0 Chloride 111 mmol/L Normal 101-111 Co2 Carbon Dioxide 22 mmol/L Normal 22-32 Anion Gap 6 mmol/L Normal 2-11 Glucose 103 mg/dL High 70-100 Blood Urea Nitrogen 29 mg/dL High 6-24 Creatinine 1.88 mg/dL High 0.67-1.17 BUN/Creatinine Ratio 15.4 Normal 8-20 Calcium 8.6 mg/dL Normal 8.6-10.3 Egfr Non- 35.5 >60 Egfr 42.9 >60 7 CBC Auto 03/24/2019 [facility] White Blood 9.3 10^3/uL Normal 3.5-10.8 Diff [address] [facility] [place] [address] [phone] Red Blood Count 3.00 10^6/uL Low 4.18-5.48 Hemoglobin 9.0 g/dL Low 14.0-18.0 Hematocrit 27 % Low 42-52 Mean Corpuscular Volume 89 fL Normal 80-94 Mean Corpuscular Hemoglobin 30 pg Normal 27-31 Mean Corpuscular HGB Conc 34 g/dL Normal 31-36 Red Cell Distribution Width 14 % Normal 10-15 Platelet Count 305 10^3/uL Normal 150-450 Mean Platelet Volume 7.1 fL Low 7.4-10.4 Abs Neutrophils 5.9 10^3/uL Normal 1.5-7.7 Abs Lymphocytes 1.7 10^3/uL Normal 1.0-4.8 Abs Monocytes 1.0 10^3/uL High 0-0.8 Abs Eosinophils 0.7 10^3/uL High 0-0.6 Abs Basophils 0.1 10^3/uL Normal 0-0.2 Abs Nucleated RBC 0.0 10^3/uL Granulocyte % 63.2 % Lymphocyte % 17.9 % Monocyte % 10.9 % Eosinophil % 7.4 % Basophil % 0.6 % Nucleated Red Blood Cells % 0.1 Neph Routine 03/24/2019 [facility] Total Protein Random 27 mg/ dL [address] [place] [address] [phone] Creatinine Random Urine 60.28 mg/dL Urine Culture And 03/10/2019 [facility] Urine SEE RESULT 8 , [address] [place] [address] [phone] Laboratory test 03/10/2019 [facility] Albumin 4.2 g/dL Normal 3.2- [address] 5.2 [place] [address] [phone] Basic Metabolic 03/10/2019 [facility] Sodium 139 mmol/L Normal 135- Panel [address] [place] [address] [phone] Potassium 4.3 mmol/L Normal 3.5-5.0 Chloride 113 mmol/L High 101-111 Co2 Carbon Dioxide 16 mmol/L Low 22-32 Anion Gap 10 mmol/L Normal 2-11 Glucose 128 mg/dL High 70-100 Blood Urea Nitrogen 50 mg/dL High 6-24 Creatinine 2.47 mg/dL High 0.67-1.17 BUN/Creatinine Ratio 20.2 High 8-20 Calcium 8.9 mg/dL Normal 8.6-10.3 Egfr Non- 25.9 >60 Egfr 31.3 >60 11 Laboratory test 03/10/2019 [facility] Creatinine Random 47.78 mg /dL [address] [place] [address] [phone] Total Protein Random Urine 48 mg/dL 13 CBC Auto 03/10/2019 [facility] White Blood 10.9 10^3/uL High 3.5-10.[address] [place] [address] [phone] Red Blood Count 3.10 10^6/uL Low 4.18-5.48 Hemoglobin 9.3 g/dL Low 14.0-18.0 Hematocrit 28 % Low 42-52 Mean Corpuscular Volume 89 fL Normal 80-94 Mean Corpuscular Hemoglobin 30 pg Normal 27-31 Mean Corpuscular HGB Conc 34 g/dL Normal 31-36 Red Cell Distribution Width 14 % Normal 10-15 Platelet Count 208 10^3/uL Normal 150-450 Mean Platelet Volume 7.0 fL Low 7.4-10.4 Abs Neutrophils 7.1 10^3/uL Normal 1.5-7.7 Abs Lymphocytes 1.7 10^3/uL Normal 1.0-4.8 Abs Monocytes 1.1 10^3/uL High 0-0.8 Abs Eosinophils 0.9 10^3/uL High 0-0.6 Abs Basophils 0.1 10^3/uL Normal 0-0.2 Abs Nucleated RBC 0.0 10^3/uL Granulocyte % 65.3 % Lymphocyte % 15.5 % Monocyte % 9.9 % Eosinophil % 8.5 % Basophil % 0.8 % Nucleated Red Blood Cells % 0.0 Urinalysis Profile 03/10/2019 [facility] Urine Color Yellow [address] [place] [address] [phone] Urine Appearance Clear Urine Specific [place] 1.010 Normal 1.010-1.030 Urine pH 6.0 Normal 5-9 Urine Urobilinogen Negative Negative Urine Ketones Negative Negative Urine Protein Negative Negative Urine Leukocytes Trace Abnormal Negative Urine Blood Negative Negative * * Abnormal Negative 14 Urine Nitrite Negative Negative Urine Bilirubin Negative Negative Urine Glucose Negative Negative Urine White Blood Cell 2+(11-20/hpf) Abnormal Absent Urine Red Blood Cell Absent Absent Urine Bacteria Absent Absent Laboratory test 03/04/2019 [facility] Ferritin 122.7 Normal 24 -336 15, [address] ng/[place] [address] [phone] Iron & Iron 03/04/2019 [facility] Iron 56 g/dL Normal 50- [address] [place] [address] [phone] Unsaturated Iron Binding < 332 g/dL Total Iron Binding Capacity 347 g/dL Normal 250-450 Transferrin 248 mg/dL Normal 203-362 % Iron Saturation 16 % Normal 15-55 Laboratory test 03/04/2019 [facility] Albumin 3.9 g/dL Normal 3.2-5.2 [address] [place] [address] [phone] Hemoglobin A1c (Glyco HGB) 7.5 % High 4.0-5.6 18 Basic Metabolic 03/04/2019 [facility] Sodium 140 mmol/L Normal 135-[address] [place] [address] [phone] Potassium 5.0 mmol/L Normal 3.5-5.0 Chloride 116 mmol/L High 101-111 Co2 Carbon Dioxide 14 mmol/L Critical low 22-32 19 Anion Gap 10 mmol/L Normal 2-11 Glucose 118 mg/dL High 70-100 Blood Urea Nitrogen 73 mg/dL High 6-24 Creatinine 3.28 mg/dL High 0.67-1.17 BUN/Creatinine Ratio 22.3 High 8-20 Calcium 8.8 mg/dL Normal 8.6-10.3 Egfr Non- 18.6 >60 Egfr 22.6 >60 20 CBC Auto 03/04/2019 [facility] White Blood 10.8 10^3/uL Normal 3.5-10.[address] [place] [address] [phone] Red Blood Count 3.37 10^6/uL Low 4.18-5.48 Hemoglobin 10.2 g/dL Low 14.0-18.0 Hematocrit 30 % Low 42-52 Mean Corpuscular Volume 90 fL Normal 80-94 Mean Corpuscular Hemoglobin 30 pg Normal 27-31 Mean Corpuscular HGB Conc 34 g/dL Normal 31-36 Red Cell Distribution Width 14 % Normal 10-15 Platelet Count 214 10^3/uL Normal 150-450 Mean Platelet Volume 7.1 fL Low 7.4-10.4 Abs Neutrophils 8.3 10^3/uL High 1.5-7.7 Abs Lymphocytes 1.3 10^3/uL Normal 1.0-4.8 Abs Monocytes 0.7 10^3/uL Normal 0-0.8 Abs Eosinophils 0.4 10^3/uL Normal 0-0.6 Abs Basophils 0.1 10^3/uL Normal 0-0.2 Abs Nucleated RBC 0.0 10^3/uL Granulocyte % 77.0 % Lymphocyte % 12.1 % Monocyte % 6.3 % Eosinophil % 4.1 % Basophil % 0.5 % Nucleated Red Blood Cells % 0.0 Urine Culture And 03/04/2019 [facility] Urine Culture SEE RESULT [address] [place] [address] [phone] Urinalysis Profile 03/04/2019 [facility] Urine Color Yellow [address] [place] [address] [phone] Urine Appearance Cloudy Urine Specific [place] 1.011 Normal 1.010-1.030 Urine pH 6.0 Normal 5-9 Urine Urobilinogen Negative Negative Urine Ketones Negative Negative Urine Protein Negative Negative Urine Leukocytes 3+ Abnormal Negative Urine Blood 2+ Abnormal Negative Urine Nitrite Negative Negative Urine Bilirubin Negative Negative Urine Glucose Negative Negative Urine White Blood Cell 3+(>20/hpf) Abnormal Absent Urine Red Blood Cell 3+(>10/hpf) Abnormal Absent Urine Bacteria Absent Absent Neph Routine 03/04/2019 [facility] Total Protein Random 69 mg/ dL [address] [place] [address] [phone] Creatinine Random Urine 72.89 mg/dL 23 Comp Metabolic 03/04/2019 [facility] Sodium 142 mmol/L Normal 135-[address] [place] [address] [phone] Potassium 4.6 mmol/L Normal 3.5-5.0 Co2 Carbon Dioxide 15 mmol/L Low 22-32 Glucose 92 mg/dL Normal 70-100 Blood Urea Nitrogen 72 mg/dL High 6-24 Creatinine 3.22 mg/dL High 0.67-1.17 BUN/Creatinine Ratio 22.4 High 8-20 Calcium 8.7 mg/dL Normal 8.6-10.3 Total Protein 6.9 g/dL Normal 6.4-8.9 Albumin 3.7 g/dL Normal 3.2-5.2 Globulin 3.2 g/dL Normal 2-4 Albumin/Globulin Ratio 1.2 Normal 1-3 Total Bilirubin 0.30 mg/dL Normal 0.2-1.0 Alkaline Phosphatase 60 U/L Normal 34-104 Alt 10 U/L Normal 7-52 Ast 12 U/L Low 13-39 Egfr Non- 19.1 >60 Egfr 23.1 >60 24 Chloride 120 mmol/L High 101-111 Anion Gap 7 mmol/L Normal 2-11 CBC Auto 03/04/2019 [facility] White Blood 9.5 10^3/uL Normal 3.5-10.[address] [place] [address] [phone] Red Blood Count 3.07 10^6/uL Low 4.18-5.48 Hemoglobin 9.3 g/dL Low 14.0-18.0 Hematocrit 27 % Low 42-52 Mean Corpuscular Volume 89 fL Normal 80-94 Mean Corpuscular Hemoglobin 30 pg Normal 27-31 Mean Corpuscular HGB Conc 34 g/dL Normal 31-36 Red Cell Distribution Width 14 % Normal 10-15 Platelet Count 200 10^3/uL Normal 150-450 Mean Platelet Volume 7.2 fL Low 7.4-10.4 Abs Neutrophils 6.4 10^3/uL Normal 1.5-7.7 Abs Lymphocytes 1.6 10^3/uL Normal 1.0-4.8 Abs Monocytes 0.9 10^3/uL High 0-0.8 Abs Eosinophils 0.5 10^3/uL Normal 0-0.6 Abs Basophils 0.1 10^3/uL Normal 0-0.2 Abs Nucleated RBC 0.0 10^3/uL Granulocyte % 67.2 % Lymphocyte % 17.0 % Monocyte % 9.6 % Eosinophil % 5.5 % Basophil % 0.7 % Nucleated Red Blood Cells % 0.0 Urinalysis Profile 03/04/2019 [facility] Urine Color Yellow [address] [place] [address] [phone] Urine Appearance Clear Urine Specific [place] 1.010 Normal 1.010-1.030 Urine pH 7.0 Normal 5-9 Urine Urobilinogen Negative Negative Urine Ketones Negative Negative Urine Protein Negative Negative Urine Leukocytes Trace Abnormal Negative Urine Blood Negative Negative Urine Nitrite Negative Negative Urine Bilirubin Negative Negative Urine Glucose Negative Negative Urine White Blood Cell 1+(6-10/hpf) Abnormal Absent Urine Red Blood Cell Absent Absent Urine Bacteria Absent Absent Basic Metabolic 03/04/2019 [facility] Sodium 142 mmol/L Normal 135-[address] [place] [address] [phone] Potassium 4.5 mmol/L Normal 3.5-5.0 Glucose 125 mg/dL High 70-100 Blood Urea Nitrogen 72 mg/dL High 6-24 Creatinine 3.24 mg/dL High 0.67-1.17 BUN/Creatinine Ratio 22.2 High 8-20 Calcium 8.5 mg/dL Low 8.6-10.3 Egfr Non- 18.9 >60 Egfr 22.9 >60 25 Chloride 118 mmol/L High 101-111 Co2 Carbon Dioxide 14 mmol/L Critical low 22-32 26 Anion Gap 10 mmol/L Normal 2-11 Xray 12/25/2018 [facility] SP Lumbarsacral 4+ VWS <pending> [address] [place] [address] [phone] MRI Lumbar Spine W/O <pending> Urine Culture And 12/16/2018 [facility] Urine Culture SEE RESULT [address] [place] [address] [phone] Laboratory test 12/16/2018 [facility] Creatinine 83.97 mg/dL finding [address] [place] [address] [phone] Urinalysis Profile 12/16/2018 [facility] Urine Color Yellow [address] [place] [address] [phone] Urine Appearance Cloudy Urine Specific [place] 1.011 Normal 1.010-1.030 Urine pH 6.0 Normal 5-9 Urine Urobilinogen Negative Negative Urine Ketones Negative Negative Urine Protein 1+(30 mg/dL) Abnormal Negative Urine Leukocytes 3+ Abnormal Negative Urine Blood Negative Negative * * Abnormal Negative 28 Urine Nitrite Negative Negative Urine Bilirubin Negative Negative Urine Glucose Negative Negative Urine White Blood Cell 3+(>20/hpf) Abnormal Absent Urine Red Blood Cell Absent Absent Urine Bacteria 1+ Abnormal Absent Laboratory test 12/16/2018 [facility] Total Protein 57 mg/dL finding [address] [place] [address] [phone] CBC Auto Diff 12/16/2018 [facility] White Blood 7.7 10^3/uL Normal 3.5-[address] Count 0.8 [place] [address] [phone] Red Blood Count 3.90 10^6/uL Low 4.18-5.48 [...] % Nucleated Red Blood Cells % 0.0 Basic Metabolic 12/16/2018 [facility] Sodium 141 mmol/L Normal 135-[address] [place] [address] [phone] Potassium 4.9 mmol/L Normal 3.5-5.0 Chloride 111 mmol/L Normal 101-111 Co2 Carbon Dioxide 23 mmol/L Normal 22-32 Anion Gap 7 mmol/L Normal 2-11 Glucose 134 mg/dL High 70-100 Blood Urea Nitrogen 36 mg/dL High 6-24 Creatinine 1.74 mg/dL High 0.67-1.17 BUN/Creatinine Ratio 20.7 High 8-20 Calcium 9.6 mg/dL Normal 8.6-10.3 Egfr Non- 38.8 >60 Egfr 46.9 >60 29 Urine Microalbumin 12/16/2018 [facility] Ur Microalbumin 109.3 mg/L Random [address] (mg/L) [place] [address] [phone] Urine Creatinine 83.70 mg/dL Urine Microalbumin/Creatinine 130.5 High <31 Lipid Profile 12/16/2018 [facility] Triglycerides 141 mg/dL 30 (Trig/Chol/HDL) [address] [place] [address] [phone] Cholesterol 144 mg/dL 31 HDL Cholesterol 38.3 mg/dL 32 LDL Cholesterol 78 mg/dL 33 Comp Metabolic 12/16/2018 [facility] Sodium 141 mmol/L Normal 135-145 Panel [address] [place] [address] [phone] Potassium 4.9 mmol/L Normal 3.5-5.0 Chloride 111 [...] Egfr Non- 38.8 >60 Egfr 46.9 >60 34 Laboratory test 12/16/2018 [facility] Thyroxine 6.06 g/dL Low 6.09-12.23 finding [address] [place] [address] [phone] TSH (Thyroid Stim Horm) 1.41 mcIU/mL Normal 0.34-5.60 Vitamin B12 351 pg/mL Normal 180-914 35 Lipid Profile 11/22/2018 [facility] Triglycerides 89 mg/dL 36 (Trig/Chol/HDL) [address] [place] [address] [phone] Cholesterol 135 mg/dL 37 HDL Cholesterol 41.3 mg/dL 38 LDL Cholesterol 76 mg/dL 39 CBC Auto 11/22/2018 [facility] White Blood 9.1 10^3/uL Normal 3.5-10.[address] [place] [address] [phone] Red Blood Count 3.94 10^6/uL Low 4.18-5.48 [...] Blood Cells % 0.0 Comp Metabolic 11/22/2018 [facility] Sodium 140 mmol/L Normal 135-[address] [place] [address] [phone] Chloride 111 mmol/L Normal 101-111 Co2 Carbon [...] Egfr Non- 39.0 >60 Egfr 47.2 >60 40 Potassium 5.2 mmol/L High 3.5-5.0 Anion Gap 6 mmol/L Normal 2-11 Laboratory test 11/22/2018 [facility] Hemoglobin A1c 7.1 % High 4.0-5.6 [address] (Glyco HGB) [place] [address] [phone] TSH (Thyroid Stim Horm) 1.22 mcIU/mL Normal 0.34-5.60 Total Protein 24HR 11/22/2018 [facility] Urine Collection Time 24 hr Urine [address] [place], [place] [address] [phone] Urine Total Volume 2350 mL Urine TP Concentration 43 mg/dL Urine Total Protein/24HR 1010 mg/24Hr High 0-165 Creatinine Clearance 11/22/2018 [facility] Urine Collection [address] [place] [address] [phone] Urine Total Volume 2350 mL Creatinine, Serum 1.73 mg/dL High 0.51-0.95 Urine Creatinine Concentration 68.77 mg/dL Creatinine Clearance 65 mL/min Low 97-137 Laboratory test 11/22/2018 [facility] Fructosamine 253 mcmol/L 200 - [address] [place] [address] [phone] Vitamin B12 327 pg/mL Normal 180-914 43 Vitamin D Total 25(Oh) 25.1 ng/mL Normal 20-50 44 Lyme Screen W/ Reflex To WB Negative Negative Tick-Borne 11/22/2018 [facility] Anaplasma <1:64 <1:64 45 Disease AB [address] phag[place] [address] [phone] Babesiosis Evaluation <1:64 titer <1:64 46 Ehrlichia chaffeensis IgG AB <1:64 titer <1:64 47 Lyme Disease Serology Negative Negative 48 Lipid Panel - 11/22/2018 [facility] Creatine 94 U/L Normal 10- [address] Kinase(CK) [place] [address] [phone] 1 CATH SPECIMEN 2 CATH SPECIMEN 3 Because ethnic data is not always readily [...] 15-29 5 Kidney failure <15 (or dialysis) 4 *Ascorbic acid is present which may interfere with detection of blood. 5 SEE RESULT BELOW Name: DARIO MANCINI : [address]: Jigar Canales MD Acct: [id number] Unit: [id number] AGE: 73 Location: LAB Re03/24/19 SEX: M Status: REG REF SPEC: [id number] JAROD: 03/24/[address]: Jigar Canales MD REQ: [id number] RECD: 03/24/19 STATUS: COMP _ SOURCE: URINE SPDESC: ORDERED: Urine Culture Procedure Result Reported Site Urine Culture Final 03/25/19- 1459 ML No Growth (<1,000 CFU/mL) * ML - Main Lab . END OF REPORT DEPARTMENT OF PATHOLOGY, [address] [place] [address] Jorge Luis Davis M.D. Director [facility] # [id number] 6 *Ascorbic acid is present which may interfere with detection of blood. 7 Because ethnic data is not always [...] 5 Kidney failure <15 (or dialysis) 8 Next week. 9 SEE RESULT BELOW Name: DARIO MANCINI : [address]: Jigar Canales MD Acct: [id number] Unit: [id number] AGE: 73 Location: LAB Re03/10/19 SEX: M Status: REG REF SPEC: [id number] JAROD: 03/10/[address]: Jigar Canales MD REQ: [id number] RECD: 03/10/19 STATUS: COMP _ SOURCE: URINE SPDESC: ORDERED: Urine Culture Procedure Result Reported Site Urine Culture Final 03/11/19- 1443 ML No Growth (<1,000 CFU/mL) * ML - Main Lab . END OF REPORT DEPARTMENT OF PATHOLOGY, [address] [place] [address] Jorge Luis Davis M.D. Director [facility] # [id number] 10 Next week. 11 Because ethnic data is not always readily [...] 15-29 5 Kidney failure <15 (or dialysis) 12 Next week. 13 Next week. 14 *Ascorbic acid is present which may interfere with detection of blood. 15 Today 16 Today 17 Today 18 Therapeutic target for the treatment of diabetes mellitus patients is <7% HBA1C, and in selective patients <6.0%. Please refer to [employer] diabetic care guidelines for further information. 19 Critical Result CO2:14 Called to REMBERTO Bello at: 10:23:35 by:[id number] Read back by:REMBERTO Bello 20 Because ethnic data is not always readily [...] 15-29 5 Kidney failure <15 (or dialysis) 21 SEE RESULT BELOW Name: DARIO MANCINI : [address]: Jigar Canales MD Acct: [id number] Unit: [id number] AGE: 73 Location: LAB Re03/04/19 SEX: M Status: REG REF SPEC: [id number] JAROD: 03/04/19 [facility] DR: Jigar Canales MD REQ: [id number] RECD: 03/04/19 STATUS: [facility]ADISE DOWE[facility] DR: Prabha Washington MD PC _ SOURCE: URINE SPDESC: ORDERED: Urine Culture Procedure Result Reported Site Urine Culture Final 03/05/19- 1548 ML Organism 1 NANCY ALBICANS [place] Count 25-50,000 (Moderate) CFU/ML * ML - Main Lab . END OF REPORT DEPARTMENT OF PATHOLOGY, [address] [place] [address] Jorge Luis Davis M.D. Director [facility] # [id number] 22 Today 23 Today 24 Because ethnic data is not always readily [...] 15-29 5 Kidney failure <15 (or dialysis) 25 Because ethnic data is not always [...] 5 Kidney failure <15 (or dialysis) 26 Critical Result CO2:14 Called to [id number] at: 19:35:48 by:[id number] Read back by:[id number] 27 SEE RESULT BELOW Name: DAROI MANCINI : [address]: Prabha Washington MD Acct: [id number] Unit: [id number] AGE: 73 Location: LAB Re12/16/18 SEX: M Status: REG REF SPEC: [id number] JAROD: 12/16/18-1226 [facility] DR: Jigar Canales MD REQ: [id number] RECD: 12/16/18 STATUS: PARADISE DOWE[facility] DR: Prabha Washington MD PC _ SOURCE: URINE SPDESC: ORDERED: Urine Culture Procedure Result Reported Site Urine Culture Final 12/18/18- 08 ML Organism 1 CITROBACTER FREUNDII [place] Count 25-50,000 (Moderate) CFU/ML 1. CITROBACTER FREUNDII [...] . END OF REPORT DEPARTMENT OF PATHOLOGY, [address] [place] [address] Jorge Luis Davis M.D. Director [facility] # [id number] 28 *Ascorbic acid is present which may interfere with detection of blood. 29 Because ethnic data is not always readily [...] 15-29 5 Kidney failure <15 (or dialysis) 30 Desirable: <150 Borderline High: 150-199 High: 200-499 Very High: >500 31 Desirable: <200 Borderline High: 200-239 High: >239 32 Low: <40 Desirable: 40-60 High: >60 33 Desirable: <100 Near Optimal: 100-129 Borderline High: 130-159 High: 160-189 Very High: >189 34 Because ethnic data is not always readily [...] 15-29 5 Kidney failure <15 (or dialysis) 35 Normal Range 180 to 914 Indeterminate Range 145 to 180 Deficient Range <145 36 Desirable: <150 Borderline High: 150-199 High: 200-499 Very High: >500 37 Desirable: <200 Borderline High: 200-239 High: >239 38 Low: <40 Desirable: 40-60 High: >60 39 Desirable: <100 Near Optimal: 100-129 Borderline High: 130-159 High: 160-189 Very High: >189 40 Because ethnic data is not always readily [...] 15-29 5 Kidney failure <15 (or dialysis) 41 Therapeutic target for the treatment of diabetes mellitus patients is <7% HBA1C, and in selective patients <6.0%. Please refer to [place] [employer] diabetic care guidelines for further information. 42 Test Performed by: [facility] - [address] [address] 43 Normal Range 180 to 914 Indeterminate Range 145 to 180 Deficient Range <145 44 Total 25-Hydroxyvitamin D2 and D3 (25-OH-VitD) <10 ng/mL (severe deficiency) 10-19 ng/mL (mild to moderate deficiency) 20-50 ng/mL (optimum levels) 51-80 ng/mL (increased risk of hypercalciuria) >80 ng/mL (toxicity possible) 45 ADDITIONAL INFORMATION This test was developed using an analyte specific reagent. Its performance characteristics were determined by [facility] in a manner consistent with CLIA requirements. This test has not been cleared or approved by the U.S. Food and Drug Administration. 46 ADDITIONAL INFORMATION This test was developed using an analyte specific reagent. Its performance characteristics were determined by [facility] in a manner consistent with CLIA requirements. This test has not been cleared or approved by the U.S. Food and Drug Administration. 47 ADDITIONAL INFORMATION This test was developed using an analyte specific reagent. Its performance characteristics were determined by [facility] in a manner consistent with CLIA requirements. This test has not been cleared or approved by the U.S. Food and Drug Administration. 48 No evidence of antibodies to B. burgdorferi detected. False negative results may occur in recently infected patients (<=2 weeks) due to low or undetectable antibody levels to B. burgdorferi. If recent exposure is suspected, a second sample should be collected and tested in 2-4 weeks. Test Performed by: [facility] [address] [place] [address] Procedures Date Code Description Status 02/09/2019 57176 ECHO Transthorasic Realtime 2D W Doppler & Color Flow Completed Hosp 11/27/2018 43872 Stress Test Completed 11/27/2018 57339 Myocardial Perfusion Imaging Tomographic (Spect) Completed Multiple Studies 11/11/2018 21864 EKG Tracing & Interpretation Completed 11/03/2018 07607 Inject/Drain Joint/Bursa Major W/O US Completed 05/15/2010 [id number] Diabetic Foot Exam Completed 04/28/2010 [id number] Diabetic Foot Exam Completed 02/28/2010 [id number] Diabetic Retinal Eye Exam Completed 04/01/2008 [id number] Diabetic Retinal Eye Exam Completed 02/26/2008 [id number] Diabetic Foot Exam Completed 02/05/2008 [id number] Diabetic Foot Exam Completed 02/25/2007 [id number] Diabetic Retinal Eye Exam Completed Medical Devices Description No Information Available Encounters Type Date Location Provider Dx Diagnosis Office Visit 03/25/2019 [facility] Nephrology Jigar King N17.9 Acute kidney 8:00a MD [place] failure, unspecified I12.9 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/unsp [facility] kdny E11.22 Type 2 diabetes mellitus w diabetic chronic kidney disease N18.3 Chronic kidney disease, stage 3 (moderate) Office Visit 03/11/2019 8:00a [facility] Nephrology Jigar King N17.9 Acute kidney MD Parker failure, unspecified I12.9 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/unsp [facility] kdny E11.22 Type 2 diabetes mellitus w diabetic chronic kidney disease N18.3 Chronic kidney disease, stage 3 (moderate) E11.40 Type 2 diabetes mellitus with diabetic neuropathy, unsp N39.0 Urinary tract infection, site not specified Office Visit 03/04/2019 8:00a [facility] Nephrology Jigar King N17.9 Acute kidney MD [place] failure, unspecified I12.9 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/unsp [facility] kdny E11.22 Type 2 diabetes mellitus w diabetic chronic kidney disease N18.3 Chronic kidney disease, stage 3 (moderate) E11.40 Type 2 diabetes mellitus with diabetic neuropathy, unsp N12 Tubulo-interstitial nephritis, not spcf as acute or chronic N39.0 Urinary tract infection, site not specified Office Visit 02/12/2019 [facility] Sue A40.1 Sepsis due to 9:53a Assoc,KATIE Olsen-C streptococcus, Hospitalists group B R65.21 Severe sepsis with septic shock E11.40 Type 2 diabetes mellitus with diabetic neuropathy, unsp E11.22 Type 2 diabetes mellitus w diabetic chronic kidney disease N18.3 Chronic kidney disease, stage 3 (moderate) I25.10 Athscl heart disease of [place] coronary artery w/o ang pctrs [facility] Type 2 diabetes 9:51a Assoc,keri Santos MD mellitus with Hospitalists diabetic neuropathy, unsp 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 mellitus with Hospitalists diabetic neuropathy, unsp E11.22 Type 2 diabetes mellitus w diabetic chronic kidney disease N12 Tubulo-interstitial nephritis, not spcf as acute or chronic N18.3 Chronic kidney disease, stage 3 (moderate) Office Visit 02/09/2019 9:50a [facility] Iris A41.9 Sepsis, Assoc,keri Hopper D.O. unspecified Hospitalists organism R65.21 Severe sepsis with septic shock N12 Tubulo-interstitial nephritis, not spcf as acute or chronic N13.30 Unspecified hydronephrosis E11.40 Type 2 diabetes mellitus with diabetic neuropathy, unsp Office Visit 02/08/2019 [facility] Milly A41.9 Sepsis, 9:50a Assoc,keri Michaels MD unspecified Hospitalists organism R65.21 Severe sepsis with septic shock N12 Tubulo-interstitial nephritis, not spcf as acute or chronic N13.30 Unspecified hydronephrosis E11.9 Type 2 diabetes mellitus without complications Office Visit 02/07/2019 [facility] Bethany Saravia A41.9 Sepsis, 9:50a Assockeri M.D. 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 M86.9 Osteomyelitis, unspecified E78.00 Pure hypercholesterolemia, unspecified Office Visit 11/14/2018 [facility] Damon Coch, Z79.84 senior living 8:00a Endocrinology of (current) use of [facility] oral hypoglycemic drugs 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 knee M25.462 Effusion, left knee M17.12 Unilateral primary osteoarthritis, left knee Assessments Date Code Description Provider 04/22/2019 N17.9 Acute kidney failure, unspecified Jigar Canales MD 04/22/2019 N18.3 Chronic kidney disease, stage 3 Jigar Canales MD (moderate) 04/22/2019 E11.22 Type 2 diabetes mellitus with diabetic Jigar Canales MD chronic kidney disease 03/25/2019 N17.9 Acute kidney failure, unspecified Jigar Canales MD 03/25/2019 I12.9 Hypertensive chronic kidney disease with Jigar Canales MD stage 1 through stage 4 chronic kidney disease, or unspecified chronic kidney disease 03/25/2019 E11.22 Type 2 diabetes mellitus with diabetic Jigar Canales MD chronic kidney disease 03/25/2019 N18.3 Chronic kidney disease, stage 3 Jigar Canales MD (moderate) 03/11/2019 N17.9 Acute kidney failure, unspecified Jigar Canales MD 03/11/2019 I12.9 Hypertensive chronic kidney disease with Jigar Canales MD stage 1 through stage 4 chronic kidney disease, or unspecified chronic kidney disease 03/11/2019 E11.22 Type 2 diabetes mellitus with diabetic Jigar Canales MD chronic kidney disease 03/11/2019 N18.3 Chronic kidney disease, stage 3 Jigar Canales MD (moderate) 03/11/2019 E11.40 Type 2 diabetes mellitus with diabetic Jigar Canales MD neuropathy, unspecified 03/11/2019 N39.0 Urinary tract infection, site not Jigar Canales MD specified 03/04/2019 N17.9 Acute kidney failure, unspecified Jigar Canales MD 03/04/2019 I12.9 Hypertensive chronic kidney disease with Jigar Canales MD stage 1 through stage 4 chronic kidney disease, or unspecified chronic kidney disease 03/04/2019 E11.22 Type 2 diabetes mellitus with diabetic Jigar Canales MD chronic kidney disease 03/04/2019 N18.3 Chronic kidney disease, stage 3 Jigar Canales MD (moderate) 03/04/2019 E11.40 Type 2 diabetes mellitus with diabetic Jigar Canales MD neuropathy, unspecified 03/04/2019 N12 Tubulo-interstitial nephritis, not Jigar Canales MD specified as acute or chronic 03/04/2019 N39.0 Urinary tract infection, site not Jigar Canales MD specified 02/12/2019 A40.1 Sepsis due to streptococcus, group B Sue Sarah PA-C 02/12/2019 R65.21 Severe sepsis with septic shock Sue Sarah PA-C 02/12/2019 E11.40 Type 2 diabetes mellitus with diabetic KATIE Alcaraz neuropathy, unspecified 02/12/2019 E11.22 Type 2 diabetes mellitus with diabetic KATIE Alcaraz chronic kidney disease 02/12/2019 N18.3 Chronic kidney disease, stage 3 Sue Sarah PA-C (moderate) 02/12/2019 I25.10 Atherosclerotic heart disease of [place] Sue Sarah PA-C coronary artery without angina pectoris 02/11/2019 E11.40 Type 2 diabetes mellitus with diabetic Ada Santos MD neuropathy, unspecified 02/11/2019 E11.22 Type 2 diabetes mellitus with diabetic Ada Santos MD chronic kidney disease 02/11/2019 I25.10 Atherosclerotic heart disease of [place] Ada Santos MD coronary artery without angina pectoris 02/10/2019 E11.40 Type 2 diabetes mellitus with diabetic Iris Ward, D.O. neuropathy, unspecified 02/10/2019 E11.22 Type 2 diabetes mellitus with diabetic Iris Ward, D.O. chronic kidney disease 02/10/2019 N12 Tubulo-interstitial nephritis, not Iris Ward, D.O. specified as acute or chronic 02/10/2019 N18.3 Chronic kidney disease, stage 3 Iris Ward, D.O. (moderate) 02/09/2019 R78.81 Bacteremia Mak Boswell M.D. 02/09/2019 A41.9 Sepsis, unspecified organism Iris Ward, D.O. 02/09/2019 R65.21 Severe sepsis with septic shock Iris Hopper D.O. 02/09/2019 N12 Tubulo-interstitial nephritis, not Iris Ward, D.O. specified as acute or chronic 02/09/2019 N13.30 Unspecified hydronephrosis Iris Hopper D.O. 02/09/2019 E11.40 Type 2 diabetes mellitus with diabetic Iris Ward, D.O. neuropathy, unspecified 02/08/2019 A41.9 Sepsis, unspecified [...] MD 11/27/2018 I25.10 Atherosclerotic heart disease of [place] Juan C Grey, DO [facility] coronary artery without angina pectoris 11/27/2018 E11.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 nephropathy 11/27/2018 I25.10 Coronary atherosclerosis Noble Chen M.D. 11/27/2018 R07.89 Chest discomfort Noble Chen M.D. 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 knee Plan of Treatment Future Appointment(s):06/01/2019 8:00 am - Jigar Canales MD at [facility] Ntukccxymt32/14/2020 8:30 am - Joanne Campos DNP, RN, SEXUAL HEALTH PHYSICIAN-BC at [facility]05/19/2019 8:00 am - Nelson Vazquez MD at [facility]04/22/2019 - Jigar Canales MDN17.9 Acute kidney failure, djvuxgnyjahH33.3 Chronic kidney disease, stage 3 (moderate) Follow up:1 month f/uE11.22 Type 2 diabetes mellitus with diabetic chronic kidney disease Functional Status Description No Information Available Mental Status Description No Information Available Referrals Description No Information Available
--- OUTSIDE RECORDS SUMMARY | 2019-05-12 23:55 | XMS REPORT | Continuity of Care Document ---
:1945 External Reference #:[id number] Author Name Jigar Canales MD (transmitted by agent of provider Cee Zhang) Address [address] [address] Care Team Providers Name Role Phone Chuy Escalera MD - Endocrinology, Care Team Information Wire Mesh Knitter Diabetes & Metabolism Prabha Washington MD - Internal Care Team Information Wire Mesh Knitter Medicine Problems Active Problems Provider Date Type 2 diabetes mellitus Kiran Davis, 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/2007 Martir,FACP Neuralgia Neuritis & Radiculitis Kiran Davis, 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/2007 Unspecified Martir,FACP Lyme disease Kiran Davis, 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/2007 Martir,FACP Pure hypercholesterolemia Kiran Davis, 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/2007 Martir,FACP 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, 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 Martir,FACP Anticoagulants Respite Care Provider (Current) Use Kiran Davis, 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/2007 Encounter Martir,FACP Sleep apnea Kiran Davis, Onset: 06/18/2007 Martir,FACP Peripheral venous insufficiency Kiran Davis, Onset: 06/18/2007 Martir,FACP Diabetic polyneuropathy Kiran Davis, Onset: 10/07/2007 Martir,FACP 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 Kiran Davis, Onset: 06/17/2008 mellitus Martir,[facility] Hyperlipidemia Wojciech Jones M.D., [facility], Onset: 04/16/2013 [facility] Benign essential hypertension Wojciech Joens M.D., [facility], Onset: 04/16/2013 [facility] Chronic ischemic heart disease Wojciech Jones M.D., [facility], Onset: 04/16/2013 [facility] Essential hypertension Wojciech Jones M.D., [facility], Onset: 08/01/2015 [facility] Atherosclerotic heart disease of [place] Wojciech Jones M.D., [facility], 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 [facility] Obesity Wojciech Jones M.D., [facility], Onset: 06/18/2016 [facility] Localized, primary osteoarthritis Sofya Borrego M.D. Onset: 11/03/2018 Coronary atherosclerosis Noble Chen M.D. Onset: 11/11/2018 Social History Type Date Description Comments Sex Unknown Tobacco Use Start: Unknown Never Smoked Cigarettes ETOH Use consumes 1-2 glasses of wine per week Recreational Drug Use Never Used Drugs Tobacco Use Start: Unknown Patient has never smoked Smoking Status Reviewed: 03/25/19 Patient has never smoked Exercise Type/Frequency Exercises [...] Jones M.D., 11/14/2018 5mg Tablets every day [facility] Dermacea Gauze Roll Wrap foot bid [...] FSCAI pain, if no relief call 911 Cranberry daily Unknown 200mg Capsules Ammonium Lactate [...] qd 100units Kiran Davis, Strip or prn Martir,VEENA dx: 250.02 History Medications Metformin HCL ER 1 tablet by mouth 180tabs Nelson Vazquez MD 11/14/2018 - every day at 02/13/2019 750mg Tablets ER bedtime 24HR Medications Administered in Office Medication SIG Qnty Indications Ordering Provider Date Inj, Regadenoson, 0.1 MG Juan C Grey, DO FAC 11/27/2018 Injection Technetium TC 99M Juan C Grey, DO [facility] 11/27/2018 Tetrofosmin, Per Unit Dose Up To 40 Millicuries Injection Technetium TC 99M Juan C Grey, DO FAC 11/27/2018 Tetrofosmin, Per Unit Dose Up To 40 Millicuries Injection Depomedrol 40MG Sofya Borrego M.D. 11/03/2018 Injection Celestone 3 mg and 3mg Mela Catherine-Young, 05/05/2014 Injection M.D. Celestone 3 mg and 3mg Mela Dorene-Young, 04/06/2014 Injection M.DYuniel Immunizations CPT Code Status Date Vaccine Lot # [id number] Given 02/23/2010 Influenza Virus 3Yrs & Over 31011 Given 02/15/2009 Influenza Virus Vaccine, Pandemic Formulation 37207 Given 02/15/2009 Influenza Virus Vaccine, Pandemic Formulation [id number] Given 02/15/2009 Administration Swine Flu Shot [id number] Given 03/18/2007 Influenza Virus 3Yrs & Over 90796 Given 03/18/2007 Influenza Virus 3Yrs & Over [id number] 69656 Given 02/21/2000 Influenza Virus 3Yrs & Over Vital Signs Date Vital Result Comment 03/25/2019 8:08am Height 70 inches 5'10" Weight 215.00 lb BMI (Body Mass Index) 30.8 kg/m2 03/11/2019 8:00am Height 70 inches 5'10" Weight 212.00 lb Heart Rate 83 /min BP Systolic Sitting 133 mmHg BP Diastolic Sitting 69 mmHg O2 % BldC Oximetry 100 % BMI (Body Mass Index) 30.4 kg/m2 Results Test Acquired Date Facility Test Result H/L Range Note Neph Routine 03/24/2019 [facility] Total Protein 27 mg/dL [address] [place] [address] [phone] Creatinine Random Urine 60.28 mg/dL CBC Auto 03/24/2019 [facility] White Blood 9.3 10^3/uL Normal 3.5-10.[address] [place] [address] [phone] Red Blood Count 3.00 10^6/uL Low 4.18-5.48 [...] % Nucleated Red Blood Cells % 0.1 Basic Metabolic 03/24/2019 [facility] Sodium 139 mmol/L Normal 135-[address] [place] [address] [phone] Potassium 5.0 mmol/L Normal 3.5-5.0 Chloride 111 mmol/L Normal 101-111 Co2 Carbon Dioxide 22 mmol/L Normal 22-32 Anion Gap 6 mmol/L Normal 2-11 Glucose 103 mg/dL High 70-100 Blood Urea Nitrogen 29 mg/dL High 6-24 Creatinine 1.88 mg/dL High 0.67-1.17 BUN/Creatinine Ratio 15.4 Normal 8-20 Calcium 8.6 mg/dL Normal 8.6-10.3 Egfr Non- 35.5 >60 Egfr 42.9 >60 1 Urinalysis Profile 03/24/2019 [facility] Urine Color Yellow [address] [place], [place] [id number] [phone] Urine Appearance Cloudy Urine Specific [place] 1.010 Normal 1.010-1.030 Urine pH 6.0 Normal 5-9 Urine Urobilinogen Negative Negative Urine Ketones Negative Negative Urine Protein Negative Negative Urine Leukocytes Trace Abnormal Negative Urine Blood Negative Negative * * Abnormal Negative 2 Urine Nitrite Negative Negative Urine Bilirubin Negative Negative Urine Glucose Negative Negative Urine White Blood Cell 1+(6-10/hpf) Abnormal Absent Urine Red Blood Cell Absent Absent Urine Bacteria Absent Absent Laboratory test 03/24/2019 [facility] Albumin 4.0 g/dL Normal 3.2-5.2 finding [address] [place], [place] [id number] [phone] Iron & Iron 03/24/2019 [facility] Iron 57 g/dL Normal 50- 212 Binding Capacity [address] [place], [place] [id number] [phone] Unsaturated Iron Binding < 342 g/dL Total Iron Binding Capacity 357 g/dL Normal 250-450 Transferrin 255 mg/dL Normal 203-362 % Iron Saturation 16 % Normal 15-55 Laboratory test 03/24/2019 [facility] Ferritin 80.8 Normal 24- 336 finding [address] [facility] ng/[place] [address] [phone] Urine Culture And 03/10/2019 [facility] Urine SEE 3, 4 Sensitivities [address] [facility] [place] [place] [address] BELOW [phone] Laboratory test 03/10/2019 [facility] Albumin 4.2 g/dL Normal 3.2-5.2 5 finding [address] [employer] [place], [place] [id number] [phone] Basic Metabolic 03/10/2019 [facility] Sodium 139 Normal 135- 145 Panel 101 [facility] mmol/[place] [address] [phone] Potassium 4.3 mmol/L Normal 3.5-5.0 Chloride 113 mmol/L High 101-111 Co2 Carbon Dioxide 16 mmol/L Low 22-32 Anion Gap 10 mmol/L Normal 2-11 Glucose 128 mg/dL High 70-100 Blood Urea Nitrogen 50 mg/dL High 6-24 Creatinine 2.47 mg/dL High 0.67-1.17 BUN/Creatinine Ratio 20.2 High 8-20 Calcium 8.9 mg/dL Normal 8.6-10.3 Egfr Non- 25.9 >60 Egfr 31.3 >60 6 Laboratory test 03/10/2019 [facility] Creatinine Random 47.78 mg /dL [address] [place] [address] [phone] Total Protein Random Urine 48 mg/dL 8 CBC Auto 03/10/2019 [facility] White Blood 10.9 10^3/uL High 3.5-10.[address] [place] [address] [phone] Red Blood Count 3.10 10^6/uL Low 4.18-5.48 [...] Blood Cells % 0.0 Urinalysis Profile 03/10/2019 [facility] Urine Color Yellow [address] [place] [address] [phone] Urine Appearance Clear Urine Specific [place] 1.010 Normal 1.010-1.030 Urine pH 6.0 Normal 5-9 Urine Urobilinogen Negative Negative Urine Ketones Negative Negative Urine Protein Negative Negative Urine Leukocytes Trace Abnormal Negative Urine Blood Negative Negative * * Abnormal Negative 9 Urine Nitrite Negative Negative Urine Bilirubin Negative Negative Urine Glucose Negative Negative Urine White Blood Cell 2+(11-20/hpf) Abnormal Absent Urine Red Blood Cell Absent Absent Urine Bacteria Absent Absent Laboratory test 03/04/2019 [facility] Ferritin 122.7 Normal 24 -336 10, [address] ng/[place] [address] [phone] Iron & Iron 03/04/2019 [facility] Iron 56 g/dL Normal 50- [address] [place] [address] [phone] Unsaturated Iron Binding < 332 g/dL Total Iron Binding Capacity 347 g/dL Normal 250-450 Transferrin 248 mg/dL Normal 203-362 % Iron Saturation 16 % Normal 15-55 Laboratory test 03/04/2019 [facility] Albumin 3.9 g/dL Normal 3.2-5.[address] [place] [address] [phone] Hemoglobin A1c (Glyco HGB) 7.5 % High 4.0-5.6 13 Basic Metabolic 03/04/2019 [facility] Sodium 140 mmol/L Normal 135-[address] [place] [address] [phone] Potassium 5.0 mmol/L Normal 3.5-5.0 Chloride 116 mmol/L High 101-111 Co2 Carbon Dioxide 14 mmol/L Critical low 22-32 14 Anion Gap 10 mmol/L Normal 2-11 Glucose 118 mg/dL High 70-100 Blood Urea Nitrogen 73 mg/dL High 6-24 Creatinine 3.28 mg/dL High 0.67-1.17 BUN/Creatinine Ratio 22.3 High 8-20 Calcium 8.8 mg/dL Normal 8.6-10.3 Egfr Non- 18.6 >60 Egfr 22.6 >60 15 CBC Auto 03/04/2019 [facility] White Blood 10.8 10^3/uL Normal 3.5-10.[address] [place] [address] [phone] Red Blood Count 3.37 10^6/uL Low 4.18-5.48 [...] Cells % 0.0 Urine Culture And 03/04/2019 [facility] Urine Culture SEE RESULT [address] [place] [address] [phone] Urinalysis Profile 03/04/2019 [facility] Urine Color Yellow [address] [place] [address] [phone] Urine Appearance Cloudy Urine Specific [place] 1.011 Normal 1.010-1.030 Urine pH 6.0 Normal 5-9 Urine Urobilinogen Negative Negative Urine Ketones Negative Negative Urine Protein Negative Negative Urine Leukocytes 3+ Abnormal Negative Urine Blood 2+ Abnormal Negative Urine Nitrite Negative Negative Urine Bilirubin Negative Negative Urine Glucose Negative Negative Urine White Blood Cell 3+(>20/hpf) Abnormal Absent Urine Red Blood Cell 3+(>10/hpf) Abnormal Absent Urine Bacteria Absent Absent Neph Routine 03/04/2019 [facility] Total Protein Random 69 mg/ dL [address] [place] [address] [phone] Creatinine Random Urine 72.89 mg/dL 18 Comp Metabolic 03/04/2019 [facility] Sodium 142 mmol/L Normal 135-[address] [place] [address] [phone] Potassium 4.6 mmol/L Normal 3.5-5.0 Co2 Carbon [...] Egfr Non- 19.1 >60 Egfr 23.1 >60 19 Chloride 120 mmol/L High 101-111 Anion Gap 7 mmol/L Normal 2-11 CBC Auto 03/04/2019 [facility] White Blood 9.5 10^3/uL Normal 3.5-10.[address] [place] [address] [phone] Red Blood Count 3.07 10^6/uL Low 4.18-5.48 [...] Blood Cells % 0.0 Urinalysis Profile 03/04/2019 [facility] Urine Color Yellow [address] [facility] [place] [id number] [phone] Urine Appearance Clear Urine Specific [place] 1.010 Normal 1.010-1.030 Urine pH 7.0 Normal 5-9 Urine Urobilinogen Negative Negative Urine Ketones Negative Negative Urine Protein Negative Negative Urine Leukocytes Trace Abnormal Negative Urine Blood Negative Negative Urine Nitrite Negative Negative Urine Bilirubin Negative Negative Urine Glucose Negative Negative Urine White Blood Cell 1+(6-10/hpf) Abnormal Absent Urine Red Blood Cell Absent Absent Urine Bacteria Absent Absent Basic Metabolic 03/04/2019 [facility] Sodium 142 mmol/L Normal 135-[address] [place] [address] [phone] Potassium 4.5 mmol/L Normal 3.5-5.0 Glucose 125 mg/dL High 70-100 Blood Urea Nitrogen 72 mg/dL High 6-24 Creatinine 3.24 mg/dL High 0.67-1.17 BUN/Creatinine Ratio 22.2 High 8-20 Calcium 8.5 mg/dL Low 8.6-10.3 Egfr Non- 18.9 >60 Egfr 22.9 >60 20 Chloride 118 mmol/L High 101-111 Co2 Carbon Dioxide 14 mmol/L Critical low 22-32 21 Anion Gap 10 mmol/L Normal 2-11 Xray 12/25/2018 [facility] SP Lumbarsacral 4+ VWS <pending> [address] [place] [phone] MRI Lumbar Spine W/O <pending> Comp Metabolic 12/16/2018 [facility] Sodium 141 mmol/L Normal 135-[address] [place] [address] [phone] Potassium 4.9 mmol/L Normal 3.5-5.0 Chloride 111 [...] Egfr Non- 38.8 >60 Egfr 46.9 >60 22 Lipid Profile 12/16/2018 [facility] Triglycerides 141 mg/dL 23 (Trig/Chol/HDL) [address] [place] [address] [phone] Cholesterol 144 mg/dL 24 HDL Cholesterol 38.3 mg/dL 25 LDL Cholesterol 78 mg/dL 26 Urine Microalbumin 12/16/2018 [facility] Ur Microalbumin 109.3 mg/L Random [address] (mg/L) [place] [address] [phone] Urine Creatinine 83.70 mg/dL Urine Microalbumin/Creatinine 130.5 High <31 Basic Metabolic 12/16/2018 [facility] Sodium 141 mmol/L Normal 135-[address] [place] [address] [phone] Potassium 4.9 mmol/L Normal 3.5-5.0 Chloride 111 mmol/L Normal 101-111 Co2 Carbon Dioxide 23 mmol/L Normal 22-32 Anion Gap 7 mmol/L Normal 2-11 Glucose 134 mg/dL High 70-100 Blood Urea Nitrogen 36 mg/dL High 6-24 Creatinine 1.74 mg/dL High 0.67-1.17 BUN/Creatinine Ratio 20.7 High 8-20 Calcium 9.6 mg/dL Normal 8.6-10.3 Egfr Non- 38.8 >60 Egfr 46.9 >60 27 CBC Auto 12/16/2018 [facility] White Blood 7.7 10^3/uL Normal 3.5-10.[address] [place] [address] [phone] Red Blood Count 3.90 10^6/uL Low 4.18-5.48 [...] Blood Cells % 0.0 Laboratory test 12/16/2018 [facility] Total Protein 57 mg/dL finding [address] [place] [address] [phone] Urinalysis Profile 12/16/2018 [facility] Urine Color Yellow [address] [place] [address] [phone] Urine Appearance Cloudy Urine Specific [place] 1.011 Normal 1.010-1.030 Urine pH 6.0 Normal [...] Bacteria 1+ Abnormal Absent Laboratory test 12/16/2018 [facility] Creatinine 83.97 mg/dL finding [address] [place] [address] [phone] Urine Culture And 12/16/2018 [facility] Urine Culture SEE RESULT [address] [place] [address] [phone] Laboratory test 12/16/2018 [facility] Thyroxine 6.06 g/dL Low 6.[address]. [place] [address] [phone] TSH (Thyroid Stim Horm) 1.41 mcIU/mL Normal 0.34-5.60 Vitamin B12 351 pg/mL Normal 180-914 30 Lipid Profile 11/22/2018 [facility] Triglycerides 89 mg/dL 31 (Trig/Chol/HDL) [address] [place] [address] [phone] Cholesterol 135 mg/dL 32 HDL Cholesterol 41.3 mg/dL 33 LDL Cholesterol 76 mg/dL 34 CBC Auto 11/22/2018 [facility] White Blood 9.1 10^3/uL Normal 3.5-10.8 Diff [address] [place] [address] [phone] Red Blood Count 3.94 10^6/uL Low 4.18-5.48 [...] Blood Cells % 0.0 Comp Metabolic 11/22/2018 [facility] Sodium 140 mmol/L Normal 135-145 Panel [address] [place] [address] [phone] Chloride 111 mmol/L Normal 101-111 Co2 Carbon [...] Egfr Non- 39.0 >60 Egfr 47.2 >60 35 Potassium 5.2 mmol/L High 3.5-5.0 Anion Gap 6 mmol/L Normal 2-11 Laboratory test 11/22/2018 [facility] Hemoglobin A1c 7.1 % High 4.0-5.[address] (Glyco HGB) [place] [address] [phone] TSH (Thyroid Stim Horm) 1.22 mcIU/mL Normal 0.34-5.60 Total Protein 24HR 11/22/2018 [facility] Urine Collection Time [address] [place] [address] [phone] Urine Total Volume 2350 mL Urine TP Concentration 43 mg/dL Urine Total Protein/24HR 1010 mg/24Hr High 0-165 Creatinine Clearance 11/22/2018 [facility] Urine Collection [address] [place] [address] [phone] Urine Total Volume 2350 mL Creatinine, Serum 1.73 mg/dL High 0.51-0.95 Urine Creatinine Concentration 68.77 mg/dL Creatinine Clearance 65 mL/min Low 97-137 Laboratory test 11/22/2018 [facility] Fructosamine 253 mcmol/L 200 - [address] [place] [address] [phone] Vitamin B12 327 pg/mL Normal 180-914 38 Vitamin D Total 25(Oh) 25.1 ng/mL Normal 20-50 39 Lyme Screen W/ Reflex To WB Negative Negative Tick-Borne 11/22/2018 [facility] Anaplasma <1:64 <1:64 [address] [place] [address] [phone] Babesiosis Evaluation <1:64 titer <1:64 41 Ehrlichia chaffeensis IgG AB <1:64 titer <1:64 42 Lyme Disease Serology Negative Negative 43 Lipid Panel - 11/22/2018 [facility] Creatine 94 U/L Normal 10- [address] Kinase(CK) [place] [address] [phone] Laboratory test 10/03/2018 [facility] Troponin-I 0.00 <0.[address] (TnI) ng/[place] [address] [phone] CBC Auto Diff 10/03/2018 [facility] White Blood 8.3 Normal 3.5 -10.[address] Count 10^3/[place] [address] [phone] Red Blood Count 3.60 10^6/uL Low 4.18-5.48 [...] Blood Cells % 0.0 Laboratory test 10/03/2018 [facility] Lactic Acid 0.6 mmol/L Normal 0.5-2.0 [address] [place] [address] [phone] Comp Metabolic 10/03/2018 [facility] Sodium 140 mmol/L Normal 135-[address] [place] [address] [phone] Potassium 4.9 mmol/L Normal 3.5-5.0 Co2 Carbon [...] Egfr Non- 33.8 >60 Egfr 40.9 >60 46 Chloride 114 mmol/L High 101-111 Anion Gap 3 mmol/L Normal 2-11 Laboratory test 10/03/2018 [facility] Troponin-I (TnI) 0.01 ng/ mL <0.04 47 finding [address] [place] [address] [phone] 1 Because ethnic data is not always readily [...] 15-29 5 Kidney failure <15 (or dialysis) 2 *Ascorbic acid is present which may interfere with detection of blood. 3 Next week. 4 SEE RESULT BELOW Name: DARIO MANCINI : [address]: Jigar Canales MD Acct: [id number] Unit: [id number] AGE: 73 Location: LAB Re03/10/19 SEX: M Status: REG REF SPEC: [id number] JAROD: 03/10/[address]: Jigar Canales MD REQ: [id number] RECD: 03/10/19 STATUS: COMP _ SOURCE: URINE SPDESC: ORDERED: Urine Culture Procedure Result Reported Site Urine Culture Final 03/11/19- 1443 ML No Growth (<1,000 CFU/mL) * ML - Main Lab . END OF REPORT DEPARTMENT OF PATHOLOGY, [address], [place], [place] [address] Jorge Luis Davis M.D. Director [facility] # [id number] 5 Next week. 6 Because ethnic data is not always readily [...] 15-29 5 Kidney failure <15 (or dialysis) 7 Next week. 8 Next week. 9 *Ascorbic acid is present which may interfere with detection of blood. 10 Today 11 Today 12 Today 13 Therapeutic target for the treatment of diabetes mellitus patients is <7% HBA1C, and in selective patients <6.0%. Please refer to [place] [employer] diabetic care guidelines for further information. 14 Critical Result CO2:14 Called to REMBERTO Bello at: 10:23:35 by:[id number] Read back by:REMBERTO Bello 15 Because ethnic data is not always readily [...] 15-29 5 Kidney failure <15 (or dialysis) 16 SEE RESULT BELOW Name: DARIO MANCINI : [address]: Jigar Canales MD Acct: [id number] Unit: [id number] AGE: 73 Location: LAB Re03/04/19 SEX: M Status: REG REF SPEC: [id number] JAROD: 03/04/[address] [facility] [address]: Jigar Canales MD REQ: [id number] RECD: 03/04/19 STATUS: [facility] DR: Prabha Washington MD PC _ SOURCE: URINE SPDESC: ORDERED: Urine Culture Procedure Result Reported Site Urine Culture Final 03/05/19- 1548 ML Organism 1 NANCY ALBICANS Girdler Count 25-50,000 (Moderate) CFU/ML * ML - Main Lab . END OF REPORT DEPARTMENT OF PATHOLOGY, [address] [place] [address] Jorge Luis Davis M.D. Director [facility] # [id number] 17 Today 18 Today 19 Because ethnic data is not always readily [...] 15-29 5 Kidney failure <15 (or dialysis) 20 Because ethnic data is not always [...] 5 Kidney failure <15 (or dialysis) 21 Critical Result CO2:14 Called to [id number] at: 19:35:48 by:[id number] Read back by:[id number] 22 Because ethnic data is not always readily [...] 15-29 5 Kidney failure <15 (or dialysis) 23 Desirable: <150 Borderline High: 150-199 High: 200-499 Very High: >500 24 Desirable: <200 Borderline High: 200-239 High: >239 25 Low: <40 Desirable: 40-60 High: >60 26 Desirable: <100 Near Optimal: 100-129 Borderline High: 130-159 High: 160-189 Very High: >189 27 Because ethnic data is not always [...] 15-29 5 Kidney failure <15 (or dialysis) 28 *Ascorbic acid is present which may interfere with detection of blood. 29 SEE RESULT BELOW Name: DARIO MANCINI : [address]: Prabha Washington MD Acct: [id number] Unit: [id number] AGE: 73 Location: LAB Re12/16/18 SEX: M Status: REG REF SPEC: [id number] JAROD: 12/16/18-[address] [facility] [address]: Jigar Canales MD REQ: [id number] RECD: 12/16/18 STATUS: [facility] DR: Prabha Washington MD PC _ SOURCE: URINE SPDESC: ORDERED: Urine Culture Procedure Result Reported Site Urine Culture Final 12/18/18- 0842 ML Organism 1 CITROBACTER FREUNDII Girdler Count 25-50,000 (Moderate) CFU/ML 1. CITROBACTER FREUNDII [...] . END OF REPORT DEPARTMENT OF PATHOLOGY, [address] [place] [address] Jorge Luis Davis M.D. Director [facility] # [id number] 30 Normal Range 180 to 914 Indeterminate Range 145 to 180 Deficient Range <145 31 Desirable: <150 Borderline High: 150-199 High: 200-499 Very High: >500 32 Desirable: <200 Borderline High: 200-239 High: >239 33 Low: <40 Desirable: 40-60 High: >60 34 Desirable: <100 Near Optimal: 100-129 Borderline High: 130-159 High: 160-189 Very High: >189 35 Because ethnic data is not always readily [...] 15-29 5 Kidney failure <15 (or dialysis) 36 Therapeutic target for the treatment of diabetes mellitus patients is <7% HBA1C, and in selective patients <6.0%. Please refer to [place] [employer] diabetic care guidelines for further information. 37 Test Performed by: [facility] - [address] [address] 38 Normal Range 180 to 914 Indeterminate Range 145 to 180 Deficient Range <145 39 Total 25-Hydroxyvitamin D2 and D3 (25-OH-VitD) <10 ng/mL (severe deficiency) 10-19 ng/mL (mild to moderate deficiency) 20-50 ng/mL (optimum levels) 51-80 ng/mL (increased risk of hypercalciuria) >80 ng/mL (toxicity possible) 40 ADDITIONAL INFORMATION This test was developed using an analyte specific reagent. Its performance characteristics were determined by [facility] in a manner consistent with CLIA requirements. This test has not been cleared or approved by the U.S. Food and Drug Administration. 41 ADDITIONAL INFORMATION This test was developed using an analyte specific reagent. Its performance characteristics were determined by [facility] in a manner consistent with CLIA requirements. This test has not been cleared or approved by the U.S. Food and Drug Administration. 42 ADDITIONAL INFORMATION This test was developed using an analyte specific reagent. Its performance characteristics were determined by [facility] in a manner consistent with CLIA requirements. This test has not been cleared or approved by the U.S. Food and Drug Administration. 43 No evidence of antibodies to B. burgdorferi detected. False negative results may occur in recently infected patients (<=2 weeks) due to low or undetectable antibody levels to B. burgdorferi. If recent exposure is suspected, a second sample should be collected and tested in 2-4 weeks. Test Performed by: [facility] [address] [place] [address] 44 Troponin-I testing on Plasma Separator Tubes (PST) has a known false positive rate of 0.20-0.40%. All positive troponins reflex immediately to secondary confirmatory testing. Using the [employer] DxI 800 Access Immunoassay systems, the 99th percentile upper reference limit was demonstrated to be < 0.03 ng/mL. 45 [facility] Severe Sepsis and Septic Shock Management Bundle Measure requires all lactic acids initially measuring >2.0 mmol/L be repeated. 46 Because ethnic data is not always readily [...] 15-29 5 Kidney failure <15 (or dialysis) 47 Troponin-I testing on Plasma Separator Tubes (PST) has a known false positive rate of 0.20-0.40%. All positive troponins reflex immediately to secondary confirmatory testing. Using the [employer] DxI 800 Access Immunoassay systems, the 99th percentile upper reference limit was demonstrated to be < 0.03 ng/mL. Procedures Date Code Description Status 02/09/2019 79253 ECHO Transthorasic Realtime 2D W Doppler & Color Flow Completed Hosp 11/27/2018 38098 Stress Test Completed 11/27/2018 50694 Myocardial Perfusion Imaging Tomographic (Spect) Completed Multiple Studies 11/11/2018 81808 EKG Tracing & Interpretation Completed 11/03/2018 07377 Inject/Drain Joint/Bursa Major W/O US Completed 05/15/2010 [id number] Diabetic Foot Exam Completed 04/28/2010 [id number] Diabetic Foot Exam Completed 02/28/2010 138759025 Diabetic Retinal Eye Exam Completed 04/01/2008 [id number] Diabetic Retinal Eye Exam Completed 02/26/2008 [id number] Diabetic Foot Exam Completed 02/05/2008 [id number] Diabetic Foot Exam Completed 02/25/2007 [id number] Diabetic Retinal Eye Exam Completed Medical Devices Description No Information Available Encounters Type Date Location Provider Dx Diagnosis Office Visit 03/25/2019 [facility] Nephrology Jigar King N17.9 Acute kidney 8:00a MD Parker failure, unspecified N18.3 Chronic kidney disease, stage 3 (moderate) 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 kdny Office Visit 03/11/2019 8:00a [facility] Nephrology Jigar King N17.9 Acute kidney MD Parker failure, unspecified 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 N18.3 Chronic kidney disease, stage 3 (moderate) E11.40 Type 2 diabetes mellitus with diabetic neuropathy, unsp N39.0 Urinary tract infection, site not specified Office Visit 03/04/2019 8:00a [facility] Nephrology Jigar iKng N17.9 Acute kidney MD [place] failure, unspecified 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 N18.3 Chronic kidney disease, stage 3 (moderate) E11.40 Type 2 diabetes mellitus with diabetic neuropathy, unsp N12 Tubulo-interstitial nephritis, not spcf as acute or chronic N39.0 Urinary tract infection, site not specified Office Visit 02/12/2019 [facility] Sue A40.1 Sepsis due to 9:53a Assoc,pc Tyrel, PA-C streptococcus, Hospitalists group B R65.21 Severe sepsis with septic shock E11.40 Type 2 diabetes mellitus with diabetic neuropathy, unsp E11.22 Type 2 diabetes mellitus w diabetic chronic kidney disease N18.3 Chronic kidney disease, stage 3 (moderate) I25.10 Athscl heart disease of [place] coronary artery w/o ang pctrs [facility] Type 2 diabetes 9:51a Assoc,keri Santos MD mellitus with Hospitalists diabetic neuropathy, unsp 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 mellitus with Hospitalists diabetic neuropathy, unsp E11.22 Type 2 diabetes mellitus w diabetic chronic kidney disease N12 Tubulo-interstitial nephritis, not spcf as acute or chronic N18.3 Chronic kidney disease, stage 3 (moderate) Office Visit 02/09/2019 9:50a [facility] A41.9 Sepsis, Assoc,keri Hopper D.O. unspecified Hospitalists organism R65.21 Severe sepsis with septic shock N12 Tubulo-interstitial nephritis, not spcf as acute or chronic N13.30 Unspecified hydronephrosis E11.40 Type 2 diabetes mellitus with diabetic neuropathy, unsp Office Visit 02/08/2019 [facility] Milly A41.9 Sepsis, 9:50a Assoc,keri Michaels MD unspecified Hospitalists organism R65.21 Severe sepsis with septic shock N12 Tubulo-interstitial nephritis, not spcf as acute or chronic N13.30 Unspecified hydronephrosis E11.9 Type 2 diabetes mellitus without complications Office Visit 02/07/2019 [facility] Bethany Saravia, A41.9 Sepsis, 9:50a Assockeri M.D. 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 M86.9 Osteomyelitis, unspecified E78.00 Pure hypercholesterolemia, unspecified Office Visit 11/14/2018 [facility] Nelson Vazquez, 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 knee M25.462 Effusion, left knee M17.12 Unilateral primary osteoarthritis, left knee Assessments Date Code Description Provider 03/25/2019 N17.9 Acute kidney failure, unspecified Jigar Canales MD 03/25/2019 N18.3 Chronic kidney disease, stage 3 Jigar Canales MD (moderate) 03/25/2019 E11.22 Type 2 diabetes mellitus with diabetic Jigar Canales MD chronic kidney disease 03/25/2019 I12.9 Hypertensive chronic kidney disease with Jigar Canales MD stage 1 through stage 4 chronic kidney disease, or unspecified chronic kidney disease 03/11/2019 N17.9 Acute kidney failure, unspecified Jigar [...] Sepsis due to streptococcus, group B Sue O'anton, PA-C 02/12/2019 R65.21 Severe sepsis with septic shock Sue O'anton, PA-C 02/12/2019 E11.40 Type 2 diabetes mellitus with diabetic Sue Eugenia'anton, PA -C neuropathy, unspecified 02/12/2019 E11.22 Type 2 diabetes mellitus with diabetic Sue O'anotn, PA -C chronic kidney disease 02/12/2019 N18.3 Chronic kidney disease, stage 3 Sue O'anton, PA-C (moderate) 02/12/2019 I25.10 Atherosclerotic heart disease of [place] Sue O'anton, PA-C coronary artery without angina pectoris 02/11/2019 E11.40 Type 2 diabetes mellitus with diabetic Ada Santos MD neuropathy, unspecified 02/11/2019 E11.22 Type 2 diabetes mellitus with diabetic Ada Santos MD chronic kidney disease 02/11/2019 I25.10 Atherosclerotic heart disease of [place] Ada Santos MD coronary artery without angina pectoris 02/10/2019 E11.40 Type 2 diabetes mellitus with diabetic Iris Hopper D.O. neuropathy, unspecified 02/10/2019 E11.22 Type 2 diabetes mellitus with diabetic Iris Hopper, D.O. chronic kidney disease 02/10/2019 N12 Tubulo-interstitial nephritis, not Iris Ward, D.O. specified as acute or chronic 02/10/2019 N18.3 Chronic kidney disease, stage 3 Irsi Ward, D.O. (moderate) 02/09/2019 R78.81 Bacteremia Mak [...] MD 11/27/2018 I25.10 Atherosclerotic heart disease of [place] Juan C Grey, DO [facility] coronary artery without angina pectoris 11/27/2018 E11.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 nephropathy 11/27/2018 I25.10 Coronary atherosclerosis Noble Chen M.D. 11/27/2018 R07.89 Chest discomfort Noble Chen M.D. 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 knee Plan of Treatment Future Appointment(s):04/22/2019 8:00 am - Jigar Canales MD at [facility] Wgvczvjdxa77/14/2020 8:30 am - Joanne Campos DNP, RN, PARCEL POST OFFICER-BC at [facility]05/19/2019 8:00 am - Nelson Vazquez MD at [facility]03/25/2019 - Jigar Canales MDN17.9 Acute kidney failure, unspecifiedFollow up:1 month f/u with labsN18.3 Chronic kidney disease, stage 3 (moderate)E11.22 Type 2 diabetes mellitus with diabetic chronic kidney myrxbffU76.9 Hypertensive chronic kidney disease with stage 1 through stage 4 chronic kidney disease, or unspecified chronic kidney disease Functional Status Description No Information Available Mental Status Description No Information Available Referrals Description No Information Available
--- OUTSIDE RECORDS SUMMARY | 2019-05-12 23:55 | XMS REPORT | Summary of Care ---
:1945 Author Organization [facility] Address [address] [place] [address] Care Team Providers Name Role Phone Prabha Washington MD Primary Care Provider Reason for Visit Reason Comments Procedure 2 mo office Cysto w/Peds Scope Encounter Details Date Type Department Care Team Description 04/28/2019 Procedure visit [facility] Urology Piter Calderon Prostate cancer (Primary Dx); [address] Middleton MD H/O urethral stricture [address] [place] [address] [id number] Allergies Active Allergy Reactions Severity Noted Date Comments Adhesive Tape Rash Low 09/23/2018 Specifically silk tape. Uses paper tape only Latex Rash Low 08/02/2009 documented as of this encounter (statuses as of 05/05/2019) Medications Medication Sig Dispensed Refills Start Date End Date Status nitroglycerin Place 0.4 mg under 0 Active (NITROSTAT) 0.6 MG the tongue SL tablet metformin 750 mg 0 Active (GLUCOPHAGE) 1000 MG tablet gabapentin Take 600 mg by mouth 2 09/05/2018 Active (NEURONTIN) 300 MG Two Times Daily capsule glipiZIDE glipizide ER 2.5 mg 0 Active (GLUCOTROL) 2.5 MG tablet, extended 24 hr tablet release 24 hr metoprolol metoprolol succinate 0 Active (TOPROL-XL) 25 MG 24 ER 25 mg hr tablet tablet,extended release 24 hr lisinopril Take 5 mg by mouth 3 06/18/2018 Active (PRINIVIL,ZESTRIL) 5 daily MG tablet montelukast montelukast 10 mg 0 Active (SINGULAIR) 10 MG tablet tablet pravastatin Take 40 mg by mouth 3 06/16/2018 Active (PRAVACHOL) 40 MG daily tablet fluticasone fluticasone 0 Active (FLONASE) 50 MCG/ACT propionate 50 nasal spray mcg/actuation nasal spray,suspension SYMBICORT 80-4.5 0 [...] Active 20 MG tablet Two Times Daily oxycodone-acetaminop TAKE ONE TABLET BY 0 01/06/2019 Active hen (PERCOCET) 5-325 MOUTH EVERY 6 HOURS MG per tablet FOR 10 DAYS Amoxicillin-Pot 0 02/12/2019 Active Clavulanate 875-125 MG Oral Tablet (AUGMENTIN) MAGNESIUM GLYCINATE Take by mouth 0 Active PLUS PO UNABLE TO FIND Med Name: Magnesium 0 Active L-Threonate Melatonin 5 MG Oral Take by mouth 0 Active Capsule Ferrous Sulfate 325 Take 325 mg by mouth 0 Active (65 Fe) MG Oral daily with breakfast Tablet Sodium Bicarbonate Take 650 mg by mouth 0 Active 650 MG Oral Tablet Four times daily UNABLE TO FIND Med Name: 0 Active Pterostilbine RESVERATROL PO Take by mouth 0 Active Vitamin D3 25 MCG Take 1,000 Units by 0 Active (1000 UT) Oral mouth daily Tablet (CHOLECALCIFEROL) Lidocaine 5 % Place 1 patch onto 0 Active External Patch the skin every 24 (LIDODERM) (twenty-four) hours Hospital, Clinic, or Other Ordered Dose Route Frequency Start Date End Date Status Facility Administered Medication lidocaine (XYLOCAINE) 2 % 20 mL UR Once 04/28/2019 04/28/2019 Ended urojet 20 mL sulfamethoxazole-trimethopr 1 tablet PO Once 04/28/2019 04/28/2019 Ended im (BACTRIM DS,SEPTRA DS) 800-160 MG per tablet 1 tablet documented as of this encounter (statuses as of 05/05/2019) Active Problems Problem Noted Date Prostate cancer H/O urethral stricture documented as of this encounter (statuses as of 05/05/2019) Social History Tobacco Use Types Packs/Day Years [...] Sign Reading Time Taken Comments Blood Pressure 130/71 04/28/2019 3:51 PM EST Pulse 65 04/28/2019 3:51 PM EST Temperature 36.6 04/28/2019 3:51 PM C (97.8 EST F) Respiratory Rate 18 04/28/2019 3:51 PM EST Oxygen Saturation 98% 04/28/2019 3:51 PM EST Inhaled Oxygen Concentration - - Weight 98.3 kg (216 lb 12.8 oz) 04/28/2019 3:51 PM EST Height 177.8 cm (5' 10") 04/28/2019 3:51 PM EST Body Mass Index 31.11 04/28/2019 3:51 PM EST documented in this encounter Patient Instructions Patient InstructionsDania Keenan RN - 04/28/2019 3:30 PM EST Patient Discharge Instructions for Cystoscopy [...] fever over 101F , or trouble urinating. [id number] [facility], [address] [place] [address], [place] [address]. All rights reserved. Thisinformation is not intended as a substitute for professional medical care. Always follow your healthcare professional's instructions. Your provider for this treatment was Dania Keenan RN If you have any questions please do not hesitate to call us! documented in this encounter Progress Notes Piter Calderon MD - 04/28/2019 3:30 PM EST REASON FOR FOLLOWUP: Blood per meatus. HISTORY OF PRESENT ILLNESS: The patient is a 73-year-old gentleman who has history of prostate cancer with radiation. 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 He had a urinary diversion previously. Last year he reportedto me that he had blood per urethra, and I scoped him and did a urethral washing. The scope showed asmall papule in the prostatic urethra. I wanted to look at this again in two months. His washings were negative. PROCEDURE: After appropriate informed consent was obtained, the patient was taken to the procedure room. He was prepped and draped in a normal sterile fashion. Procedure verification was performed. Lidocaine 2% Uro-Jet was instilled via the urethral meatus for local anesthetic. A flexible pediatric cystoscope was advanced through the urethral meatus and advanced into the urinary bladder. We saw some irregular erythematous bullous edema in the urinary bladder. The prostatic urethra had significant fibrinous tissue coverage suggestive of radiation-induced necrosis. There was a urethral stricture in the bulbar membranous urethra, which also had some fibrinous tissues suggestive of necrosis. This was [id number]. In the prostatic urethra, there was a pink, approximately 5 mm papule protruding into the urethra from the left wall of the prostatic urethra. The remainder of the urethra was unremarkable aside from previous findings. This finding was stable. I will plan to see the patient back in the summer with a renal US and possibly scope again after that. documented in this encounter Plan of Treatment Health Maintenance Due Date Last Done Comments Hepatitis C Screening (B. 1945 9453-9317) MMR Vaccines (1 of 1 - Standard 07/07/1946 series) Varicella Vaccines (1 of 2 - 07/07/1946 2-dose childhood series) DTaP,Tdap,and Td Vaccines (1 - 1953 Tdap) Colon Cancer Screening 10 yrs 1996 Zoster Vaccines (1 of 2) 1996 Pneumococcal Vaccine: 65+ Years (1 07/07/2011 of 2 - PCV13) Influenza Vaccine 01/13/2019 Hepatitis A Vaccines Aged Out 12/06/2016 No longer eligible based on patient's age to complete this topic HIB Vaccines Aged Out No longer eligible based on patient's age to complete this topic Hepatitis B Vaccines Aged Out No longer eligible based on patient's age to complete this topic IPV Vaccines Aged Out No longer eligible based on patient's age to complete this topic Pneumococcal Vaccine: Pediatrics Aged Out No longer eligible based on (0 to 5 Years) and At-Risk patient's age to complete Patients (6 to 64 Years) this topic documented as of this encounter Results Not on filedocumented in this encounter Visit Diagnoses Diagnosis Prostate cancer - Primary Malignant neoplasm of prostate H/O urethral stricture Personal history of other disorder of urinary system documented in this encounter Administered Medications Medication Order MAR Action Action Date Dose Rate Site lidocaine (XYLOCAINE) 2 % urojet Given 04/28/2019 4:09 PM EST 20 mLs 20 mL 20 mL, Urethral, Once, 04/28/19 at 1615, For 1 dose sulfamethoxazole-trimethoprim (BACTRIM Given 04/28/2019 4:09 PM EST 1 tablet DS,SEPTRA DS) 800-160 MG per tablet 1 tablet 1 tablet, Oral, Once, 04/28/19 at 1615, For 1 dose documented in this encounter
[2019-05-13 01:19] LABS: ABS Basophils 0.1 10^3/ul (0-0.2); ABS Eosinophils 0.7 10^3/ul (0-0.6); ABS Lymphocytes 1.8 10^3/ul (1.0-4.8); ABS Monocytes 1.1 10^3/ul (0-0.8); ABS Neutrophils 5.9 10^3/ul (1.5-7.7); Eosinophil % 6.9 %; Hematocrit 32 % (42-52); Hemoglobin 10.9 g/dL (14.0-18.0); Mean Corpuscular HGB Conc 34 g/dL (31-36); Mean Corpuscular Hemoglobin 30 pg (27-31); Mean Corpuscular Volume 88 fL (80-94); Mean Platelet Volume 7.3 fL (7.4-10.4); Platelet Count 213 10^3/uL (150-450); Red Blood Count 3.66 10^6 /uL (4.18-5.48); Red Cell Distribution Width 15 % (10-15); White Blood Count 9.5 10^3/uL (3.5-10.8)
[2019-05-13 01:30] LABS: Activated Partial Thrombo Time 29.9 seconds (26.0-38.0); INR 0.97 (0.82-1.09)
[2019-05-13 01:32] LABS: Albumin 4.4 g/dL (3.2-5.2); Calcium 9.1 mg/dL (8.6-10.3); Potassium 4.6 mmol/L (3.5-5.0); Total Bilirubin 0.3 mg/dL (0.2-1.0)
[2019-05-13 01:38] LABS: Albumin/Globulin Ratio 1.4 (1-3); BUN/Creatinine Ratio 16.5 (8-20); EGFR African American 32.8 (>60); EGFR Non-African American 27.1 (>60); Globulin 3.1 g/dL (2-4); Total Protein 7.5 g/dL (6.4-8.9)
--- NOTE | 2019-05-13 02:17 | ED ---
Lower Extremity - HPI Summary HPI Summary: 73 year old M presenting to [facility] complains of left leg pain with erythema and swelling since yesterday morning 05/12/2019. Patient reports he saw PT and PCP today. PCP said he needed a US but the pt feels his leg has worsened. Patient denies respiratory complaints and CP. PMHx of ruptured disc in 2019, blood clots in both legs (years ago), [place]. He just resumed an exercise regimen six weeks ago. The patient rates the pain 4/10 in severity. Symptoms aggravated by nothing. Symptoms alleviated by nothing. - History of Current Complaint Chief Complaint: EDExtremityLower Stated Complaint: POS BLOOD CLOT ON L LEG PER PT Time Seen by Provider: 05/13/19 00:41 Hx Obtained From: Patient Pain Intensity: 4 Pain Scale Used: 0-10 Numeric Timing: Constant Associated Signs And Symptoms: Positive: Negative - negative - CP and respiratory complaints Aggravating Factor(s): Nothing Alleviating Factor(s): Nothing - Allergies/Home Medications Allergies/Adverse Reactions: Allergies Allergy/AdvReac Type Severity Reaction Status Date / Time Adhesive Tape [Silk Tape] Allergy Unknown Verified 02/23/19 19:50 Reaction Details latex Allergy Swelling Verified 02/23/19 19:50 Home Medications: Home Medications Albuterol Sulfate [Proair Digihaler] 90 mcg IH Q6H PRN 05/13/19 [History Confirmed 05/13/19] Amoxicillin/Clavulanate TAB* [Augmentin TAB 875*] 875 mg PO BID 05/13/19 [ History Confirmed 05/13/19] Cranberry Conc/Ascorbic Acid [Cranberry Concentrate] 1 cap PO DAILY 05/13/19 [ History Confirmed 05/13/19] Magnesium Glycinate [Mag Glycinate] 100 mg PO DAILY 05/13/19 [History Confirmed 05/13/19] Magnesium l-Threon/Niacinamide [Mag-Amide Sr 500 mg-250 mg Tab] 1 each PO QPM [History Confirmed 05/13/19] Resveratrol/Quercetin [Resveratrol Plus] 1 tab PO BID 05/13/19 [History Confirmed 05/13/19] Sodium Bicarbonate (ANTACID)* 1,300 mg PO BID 05/13/19 [History Confirmed ] Vitamin B Complex [Ultra B-100 Complex] 1 each PO DAILY 05/13/19 [History Confirmed 05/13/19] PMH/Surg Hx/FS Hx/Imm Hx Endocrine/Hematology History: Reports: Hx Anticoagulant Therapy, Hx Diabetes Denies: Hx Sickle Cell Disease, Hx Thyroid Disease, Hx Anemia, Hx Unexplained Bleeding Cardiovascular History: Reports: Hx Cardiomegaly, Hx Coronary Artery Disease, Hx Deep Vein Thrombosis, Hx Hypercholesterolemia, Hx Myocardial Infarction, Hx Peripheral Vascular Disease, Other Cardiovascular Problems/Disorders - cardiomegaly , Denies: Hx Aneurysm, Hx Angina, Hx Angioplasty, Hx Auto Implanted Cardiovert Defib, Hx Cardiac Arrest, Hx Congenital Heart Disease, Hx Congestive Heart Failure, Hx Embolism, Hx Hypotension, Hx Hypertension, Hx Pacemaker/ICD, Hx Rheumatic Fever, Hx Syncope, Hx Valvular Heart Disease Respiratory History: Reports: Hx Asthma, Hx Chronic Bronchitis, Hx Pneumonia, Hx Seasonal Allergies, Hx Sleep Apnea, Other Respiratory Problems/Disorders - FREQUENT PNEUMONIA Denies: Hx Chronic Obstructive Pulmonary Disease (COPD), Hx Pulmonary Embolism GI History: Reports: Other GI Disorders - 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 Denies: Hx Cirrhosis, Hx Crohn's Disease, Hx Diverticulosis, Hx Gall Bladder Disease, Hx Gastroesophageal Reflux Disease, Hx Gastrointestinal Bleed, Hx Hiatal Hernia, Hx Irritable Bowel, Hx Jaundice, Hx Obstructive Bowel, Hx Ileostomy, Hx Pyloric Stenosis, Hx Ulcer History: Reports: Other Problems/Disorders - Continent urinary diversion at [facility] Denies: Hx Acute Renal Failure, Hx Benign Prostatic Hyperplasia, Hx Chronic Renal Failure, Hx Dialysis, Hx Kidney Infection, Hx Kidney Stones Musculoskeletal History: Reports: Hx Arthritis, Hx Back Problems, Hx Bursitis - KNEE, Other Musculoskeletal History - osteomyleitis Denies: Hx Gout, Hx Osteoporosis, Hx Scoliosis Sensory History: Reports: Hx Contacts or Glasses Denies: Hx Legally Blind, Hx Deafness, Hx Hearing Aid Opthamlomology History: Reports: Hx Contacts or Glasses Denies: Hx Legally Blind Neurological History: Reports: Hx Nerve Disease - 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 urostomy Hx Anesthesia Reactions: No - Immunization History Date of Influenza Vaccine: 11/2016 Infectious Disease History: No Infectious Disease History: Denies: Hx Clostridium Difficile, Hx Hepatitis, Hx Human Immunodeficiency Virus (HIV), Hx of Known/Suspected MRSA, Hx Shingles, Hx Tuberculosis, Hx Known/ Suspected VRE, Hx Known/Suspected VRSA, History Other Infectious Disease, Traveled Outside the [place] in Last 30 Days - Family History Known Family History: Positive: Blood Disorder - FMHx of blood clots , Other - neg: anaesthesia reaction - Social History Alcohol Use: Rare Alcohol Amount: 1x week Hx Substance Use: No Substance Use Type: Reports: None Hx Tobacco Use: No Smoking Status (MU): Never Smoked Tobacco Have You Smoked in the Last Year: No Review of Systems Negative: Chest Pain Respiratory: Negative - no respiratory complaints Positive: Edema - left leg, Other - Left leg pain Positive: Other - erythema of left leg All Other Systems Reviewed And Are Negative: Yes Physical Exam - Summary Physical Exam Summary: Constitutional: Well-developed, Well-nourished, Alert. (-) Distressed Skin: LLE erythematous HENT: Normocephalic; Atraumatic Eyes: Conjunctiva normal Neck: Musculoskeletal ROM normal neck. (-) JVD, (-) Stridor, (-) Tracheal deviation Cardio: Rhythm regular, rate normal, Heart sounds normal; Intact distal pulses; The pedal pulses are 2+ and symmetric. Radial pulses are 2+ and symmetric. (-) Murmur Pulmonary/Chest wall: Effort normal. (-) Respiratory distress, (-) Wheezes, (-) Rales Abd: Soft, (-) tenderness, (-) Distension, (-) Guarding, (-) Rebound Musculoskeletal: LLE swollen and tender with palpitation Lymph: (-) Cervical adenopathy Neuro: Alert, Oriented x3 Psych: Mood and affect Normal Triage Information Reviewed: Yes Vital Signs On Initial Exam: Initial Vitals Temp Pulse Resp BP Pulse Ox 98 F 73 20 175/104 99 05/12/19 23:44 05/12/19 23:44 05/12/19 23:44 05/12/19 23:44 05/12/19 23:44 Vital Signs Reviewed: Yes Procedures - Sedation Patient Received Moderate/Deep Sedation with Procedure: No Diagnostics - Vital Signs Vital Signs Temp Pulse Resp BP Pulse Ox 05/13/19 01:37 65 145/74 95 05/12/19 23:44 98 F 73 20 175/104 99 - Laboratory Lab Results: Lab Results 05/13/19 05/13/19 05/13/19 Range/Units 01:05 01:05 01:05 WBC 9.5 (3.5-10.8) 10^3/uL RBC 3.66 L (4.18-5.48) 10^6 /uL Hgb 10.9 L (14.0-18.0) g/dL Hct 32 L (42-52) % MCV 88 (80-94) fL MCH 30 (27-31) pg MCHC 34 (31-36) g/dL RDW 15 (10-15) % Plt Count 213 (150-450) 10^3/uL MPV 7.3 L (7.4-10.4) fL Neut % (Auto) 61.5 % Lymph % (Auto) 19.0 % [place] % (Auto) 11.8 % Eos % (Auto) 6.9 % Baso % (Auto) 0.8 % Absolute Neuts (auto) 5.9 (1.5-7.7) 10^3/ul Absolute Lymphs (auto) 1.8 (1.0-4.8) 10^3/ul Absolute Monos (auto) 1.1 H (0-0.8) 10^3/ul Absolute Eos (auto) 0.7 H (0-0.6) 10^3/ul Absolute Basos (auto) 0.1 (0-0.2) 10^3/ul Absolute Nucleated RBC 0.0 10^3/ul Nucleated RBC % 0.0 INR (Anticoag Therapy) 0.97 (0.82-1.09) APTT 29.9 (26.0-38.0) seconds Sodium 141 (135-145) mmol/L Potassium 4.6 (3.5-5.0) mmol/L Chloride 109 (101-111) mmol/L Carbon Dioxide 25 (22-32) mmol/L Anion Gap 7 (2-11) mmol/L BUN 39 H (6-24) mg/dL Creatinine 2.37 H (0.67-1.17) mg/dL Est GFR ( Amer) 32.8 (>60) Est GFR (Non-Af Amer) 27.1 (>60) BUN/Creatinine Ratio 16.5 (8-20) Glucose 115 H (70-100) mg/dL Calcium 9.1 (8.6-10.3) mg/dL Total Bilirubin 0.30 (0.2-1.0) mg/dL AST 19 (13-39) U/L ALT 16 (7-52) U/L Alkaline Phosphatase 83 (34-104) U/L Total Protein 7.5 (6.4-8.9) g/dL Albumin 4.4 (3.2-5.2) g/dL Globulin 3.1 (2-4) g/dL Albumin/Globulin Ratio 1.4 (1-3) Result Diagrams: 05/13/19 01:05 05/13/19 01:05 Lab Statement: Any lab studies that have been ordered have been reviewed, and results considered in the medical decision making process. - Ultrasound Venous Doppler Study Ultrasound Interpretation Completed By: Radiologist Summary of Ultrasound Findings: IMPRESSION: There is visible hypoechoic thrombus in the left femoral vein and popliteal vein with no Doppler flow present consistent with acute occlusive DVT and noncompressibility of the left posterior tibial veins but Doppler flow is maintained consistent with nonocclusive acute DVT. ED physician has reviewed this report. Lower Extremity Course/Dx - Course Course Of Treatment: 73 year old M presenting to [facility] complains of left leg pain with erythema and swelling since yesterday morning 05/12/2019. PMHx of blood clots in both legs and [place]. Physical exam findings: LLE erythematous, swollen and tender with palpation. Bloodwork results with no significant abnormalities except for L RBC, L Hgb, L Hct, L MPV, H Absolute Monos, H Absolute Eos, H BUN, H Creatinine, H Glucose. Venous Doppler Study shows, per radiologist: There is visible hypoechoic thrombus in the left femoral vein and popliteal vein with no Doppler flow present consistent with acute occlusive DVT and noncompressibility of the left posterior tibial veins but Doppler flow is maintained consistent with nonocclusive acute DVT. In the ED course, the patient was given Oxycodone 5 mg, Enoxaparin 95 mg. Patient will be discharged home with a follow up with PCP, . Patient was instructed to return to Emergency Department for new or worsening symptoms. Patient understands and is agreeable to this plan. - Diagnoses Provider Diagnoses: DVT (deep venous thrombosis) Discharge ED - Sign-Out/Discharge Documenting (check all that apply): Patient Departure - discharge - Discharge Plan Condition: Stable Disposition: HOME Prescriptions: Apixaban* [Eliquis*] 10 mg PO BID #60 tab oxyCODONE TAB* [Roxycodone TAB 5 mg*] 5 mg PO Q4H PRN 4 Days #15 tab MDD 4 PRN Reason: Pain - Moderate Patient Education Materials: Deep Vein Thrombosis (ED) Print Language: [id number] Referrals: Prabha Washington MD [Primary Care Provider] - - Billing Disposition and Condition Condition: STABLE Disposition: Home - Attestation Statements Document Initiated by Scribe: Yes Documenting Scribe: Andi Zhang Provider For Whom Kenishaibaakash is Documenting (Include Credential): Luana Peng MD Scribe Attestation: Andi Gipson, scribed for Luana Salinas MD on 05/13/19 at 2003. Scribe Documentation Reviewed: Yes Provider Attestation: The documentation as recorded by the Andi rawls accurately reflects the service I personally performed and the decisions made by me, Luana Salinas MD Status of Scribe Document: Viewed
[2019-05-13] MEDS ORDERED: Enoxaparin(*) 100 MG/ML SYR SUBCUT ONE (04:41)
[2019-05-13] MEDS ORDERED: oxyCODONE TAB* 5 MG TAB PO ONE (05:01)
[2019-05-13 06:40] VITALS: BP 124/67
== END 2019-05-13 06:20 | disposition home or self-care (01) ==
LOC: ED 23:43
DX: I82.409 Acute embolism and thrombosis of unspecified deep veins of unspecified lower extremity (principal); E11.44 Type 2 diabetes mellitus with diabetic amyotrophy; Z79.01 Long term (current) use of anticoagulants; I51.7 Cardiomegaly; I25.10 Atherosclerotic heart disease of native coronary artery without angina pectoris; E78.00 Pure hypercholesterolemia, unspecified; I25.2 Old myocardial infarction; Z86.718 Personal history of other venous thrombosis and embolism; Z85.46 Personal history of malignant neoplasm of prostate
CPT/HCPCS: 36415; 80053; 85025; 85610; 85730; 99284; A9270-GY; J1650

== ENCOUNTER 2019-06-23 09:06 | Emergency (ER) | payer BC ==
--- OUTSIDE RECORDS SUMMARY | 2019-06-23 09:19 | XMS REPORT | Continuity of Care Document ---
:1945 External Reference #:[id number] Author Name Marco Carcamo MD (transmitted by agent of provider Susan Damon) Address [address] [place] [id number] Care Team Providers Name Role Phone Chuy Escalera MD - Endocrinology, Care Team Information [employer] [phone] Diabetes & Metabolism Prabha Washington MD - Internal Care Team Information [employer] Medicine Marco Carcamo MD - Hospitalist Care Team Information [employer] [phone] Problems Active Problems Provider Date Type 2 diabetes mellitus Kiran Davis, 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/2007 Martir,GELYP Neuralgia Neuritis & Radiculitis Kiran Davis, 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/2007 Unspecified Martir,FACP Lyme disease Kiran Davis, 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/2007 Martir,GELYP Pure hypercholesterolemia Kiran Davis, 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/2007 Martir,FACP 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 Wojciech Jones M.D., [facility], Onset: 04/16/2013 PSYCHIATRIC Benign essential hypertension Wojciech Jones M.D., [facility], Onset: 04/16/2013 PSYCHIATRIC Chronic ischemic heart disease Wojciech Jones M.D., [facility], Onset: 04/16/2013 PSYCHIATRIC Essential hypertension Wojciech Jones M.D., [facility], Onset: 08/01/2015 PSYCHIATRIC Atherosclerotic heart disease of [place] Wojciech Jones M.D., [facility], 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 PSYCHIATRIC Obesity Wojciech Jones M.D., [facility], Onset: 06/18/2016 PSYCHIATRIC Localized, primary osteoarthritis Sofya Borrego M.D. Onset: 11/03/2018 Coronary atherosclerosis Noble Chen M.D. Onset: 11/11/2018 Social History Type Date Description Comments Sex Unknown Tobacco Use Start: Unknown Never Smoked Cigarettes ETOH Use consumes 1-2 glasses of wine per week Recreational Drug Use Never Used Drugs Tobacco Use Start: Unknown Patient has never smoked Smoking Status Reviewed: 06/09/19 Patient has never smoked Exercise Type/Frequency Exercises rarely Allergies, Adverse Reactions, Alerts Active Allergies Reaction Severity Comments Date NKDA 04/06/2014 Latex Rash 04/06/2014 Adhesives blisters 04/06/2014 Inactive Allergies None 03/18/2007 NKDA 04/16/2013 S 06/03/2013 Medications Active Medications SIG Qnty Indications Ordering Provider Date Glipizide ER 1 tab by mouth 30tabs Nelson Vazquez MD 05/19/2019 5mg every day Tablets ER 24HR Tradjenta 5mg every day in 30tabs E11.22 Nelson Vazquez MD 05/19/2019 5mg Tablets the morning Ferrousul 1 tab by mouth 3 90tabs [facility], 03/25/2019 325(65Fe) times a week MD mg Tablets Sodium Bicarbonate 2 tab [facility] mouth [facility], 03/11/2019 twice times MD 650mg Tablets daily Gabapentin By mouth twice [facility], 03/11/2019 300mg daily MD Capsules Lisinopril 1 by mouth every Wojciech Jones M.D., 11/14/2018 5mg day FACC, FSCAI Tablets Dermacea Gauze Roll Wrap foot bid 4rolls E11.621 Gavi Carreno, 2018 4"X4-1/8Yd M.D. 4"X4-1/8 Misc M86.172 Gauze Sponge Apply bid 60units M86.172 Gavi Carreno M.D. 07/19/2018 4"X4" Pads E11.621 Syringe/Luer use for injection of 12units Bhupinder TonyYuniel Weller, 04/17/2018 Slip/1ML/27G X 1/2" Vitamin B [...] FSCAI pain, if no relief call 911 Melatonin 1 tab by mouth at Unknown 10mg Capsules bedtime as needed for insomnia Eliquis Starter Pack 1 by mouth twice a Unknown 5mg day Tablets Lidocaine Pain Relief for back pain use 1 Unknown 4% daily Patches Cranberry daily Unknown 200mg Capsules Ammonium Lactate use on legs daily Unknown 12% Cream (uses every 2-3 days) Vitamin D-3 1 by mouth every day Unknown 1000Unit Capsules Vitamin B-12 1 by mouth every day Unknown 100mcg Tablets Symbicort as needed Unknown 160-4.5mcg/Act Aerosol Fluticasone Propionate 2 sprays each Unknown nostril bid 50mcg/Act Suspension Famotidine take one tablet by 60tabs Unknown [...] Davis, Strip or prn Martir,FACP dx: 250.02 Medications Administered in Office Medication SIG Qnty Indications Ordering Provider Date Inj, Regadenoson, 0.1 MG Juan C Grey, DO [facility] 11/27/2018 Injection Technetium TC 99M Juan C Grey, DO [facility] 11/27/2018 Tetrofosmin, Per Unit Dose Up To 40 Millicuries Injection Technetium TC 99M Juan C Grey, DO [facility] 11/27/2018 Tetrofosmin, Per Unit Dose Up To 40 Millicuries Injection Depomedrol 40MG Sofya Borrego M.D. 11/03/2018 Injection Celestone 3 mg and 3mg Mela Catherine-Young, 05/05/2014 Injection M.D. Celestone 3 mg and 3mg Mela Catherine-Young, 04/06/2014 Injection M.D. Immunizations CPT Code Status Date Vaccine Lot # [id number] Given 02/23/2010 Influenza Virus 3Yrs & Over [id number] Given 02/15/2009 Influenza Virus Vaccine, Pandemic Formulation [id number] Given 02/15/2009 Influenza Virus Vaccine, Pandemic Formulation [id number] 60565 Given 02/15/2009 Administration Swine Flu Shot [id number] Given 03/18/2007 Influenza Virus 3Yrs & Over 81808 Given 03/18/2007 Influenza Virus 3Yrs & Over [id number] 70055 Given 02/21/2000 Influenza Virus 3Yrs & Over Vital Signs Date Vital Result Comment 06/09/2019 11:08am Height 71 inches 5'11" Weight 221.00 lb Heart Rate 87 /min BP Systolic Sitting 145 mmHg BP Diastolic Sitting 77 mmHg Body Temperature 98.2 F O2 % BldC Oximetry 97 % BMI (Body Mass Index) 30.8 kg/m2 06/02/2019 8:27am Height 71 inches 5'11" Weight 215.00 lb Heart Rate 75 /min BP Systolic 128 mmHg BP Diastolic 62 mmHg O2 % BldC Oximetry 99 % BMI (Body Mass Index) 30.0 kg/m2 Results Test Acquired Date Facility Test Result H/L Range Note Laboratory test 05/30/2019 [facility] Albumin 4.8 g/dL Normal 3.2-5.[address] [place] [address] [phone] Neph Routine 05/30/2019 [facility] Total 34 mg/dL [address] [place] [address] Random Urine [phone] Creatinine Random Urine 64.28 mg/dL CBC Auto 05/30/2019 [facility] White Blood 8.4 10^3/uL Normal 3.5-10.[address] [place] [address] [phone] Red Blood Count 4.23 10^6/uL Normal 4.18-5.48 Hemoglobin 12.2 g/dL Low 14.0-18.0 Hematocrit 37 % Low 42-52 Mean Corpuscular Volume 88 fL Normal 80-94 Mean Corpuscular Hemoglobin 29 pg Normal 27-31 Mean Corpuscular HGB Conc 33 g/dL Normal 31-36 Red Cell Distribution Width 15 % Normal 10-15 Platelet Count 286 10^3/uL Normal 150-450 Mean Platelet Volume 7.3 fL Low 7.4-10.4 Abs Neutrophils 5.3 10^3/uL Normal 1.5-7.7 Abs Lymphocytes 1.6 10^3/uL Normal 1.0-4.8 Abs Monocytes 0.9 10^3/uL High 0-0.8 Abs Eosinophils 0.5 10^3/uL Normal 0-0.6 Abs Basophils 0.1 10^3/uL Normal 0-0.2 Abs Nucleated RBC 0.0 10^3/uL Granulocyte % 62.5 % Lymphocyte % 19.4 % Monocyte % 11.1 % Eosinophil % 6.4 % Basophil % 0.6 % Nucleated Red Blood Cells % 0.0 Basic Metabolic 05/30/2019 [facility] Sodium 141 mmol/L Normal 135-[address] [place] [address] [phone] Chloride 111 mmol/L Normal 101-111 Co2 Carbon Dioxide 26 mmol/L Normal 22-32 Calcium 9.6 mg/dL Normal 8.6-10.3 Potassium 5.4 mmol/L High 3.5-5.0 Anion Gap 4 mmol/L Normal 2-11 Glucose 118 mg/dL High 70-100 Blood Urea Nitrogen 39 mg/dL High 6-24 Creatinine 2.03 mg/dL High 0.67-1.17 BUN/Creatinine Ratio 19.2 Normal 8-20 Egfr Non- 32.4 >60 Egfr 39.3 >60 1 Urinalysis Profile 05/30/2019 [facility] Urine Color Yellow [address] [place] [address] [phone] Urine Appearance Cloudy Urine Specific [place] 1.011 Normal 1.010-1.030 Urine pH 7.0 Normal 5-9 Urine Urobilinogen Negative Negative Urine Ketones Negative Negative Urine Protein Negative Negative Urine Leukocytes 3+ Abnormal Negative Urine Blood Negative Negative * * Abnormal Negative 2 Urine Nitrite Positive Abnormal Negative Urine Bilirubin Negative Negative Urine Glucose Negative Negative Urine White Blood Cell 3+(>20/hpf) Abnormal Absent Urine Red Blood Cell 1+(3-5/hpf) Abnormal Absent Urine Bacteria Absent Absent Urine Squamous Epithelial Cell Present Abnormal Absent Urine Transitional Epithelial Present Abnormal Absent Urine Culture And 05/30/2019 [facility] Urine Culture SEE RESULT [address] [place] [address] [phone] Laboratory test 05/30/2019 [facility] Hemoglobin A1c 7.1 % High 4.0- [address] (Glyco HGB) 5.6 [place], [place] [id number] [phone] Neph Routine 05/16/2019 [facility] Total Protein 29 mg/dL [place] [address] [phone] Creatinine Random Urine 58.65 mg/dL CBC Auto 05/16/2019 [facility] White Blood 7.2 10^3/uL Normal 3.5-10.[address] [place] [address] [phone] Red Blood Count 3.80 10^6/uL Low 4.18-5.48 Hemoglobin 11.4 g/dL Low 14.0-18.0 Hematocrit 33 % Low 42-52 Mean Corpuscular Volume 88 fL Normal 80-94 Mean Corpuscular Hemoglobin 30 pg Normal 27-31 Mean Corpuscular HGB Conc 34 g/dL Normal 31-36 Red Cell Distribution Width 15 % Normal 10-15 Platelet Count 262 10^3/uL Normal 150-450 Mean Platelet Volume 7.4 fL Normal 7.4-10.4 Abs Neutrophils 4.4 10^3/uL Normal 1.5-7.7 Abs Lymphocytes 1.5 10^3/uL Normal 1.0-4.8 Abs Monocytes 0.7 10^3/uL Normal 0-0.8 Abs Eosinophils 0.6 10^3/uL Normal 0-0.6 Abs Basophils 0.0 10^3/uL Normal 0-0.2 Abs Nucleated RBC 0.0 10^3/uL Granulocyte % 61.1 % Lymphocyte % 21.4 % Monocyte % 9.1 % Eosinophil % 8.0 % Basophil % 0.4 % Nucleated Red Blood Cells % 0.0 Basic Metabolic 05/16/2019 [facility] Sodium 139 mmol/L Normal 135-[address] [place] [address] [phone] Potassium 4.8 mmol/L Normal 3.5-5.0 Chloride 108 mmol/L Normal 101-111 Co2 Carbon Dioxide 24 mmol/L Normal 22-32 Anion Gap 7 mmol/L Normal 2-11 Glucose 131 mg/dL High 70-100 Blood Urea Nitrogen 30 mg/dL High 6-24 Creatinine 1.61 mg/dL High 0.67-1.17 BUN/Creatinine Ratio 18.6 Normal 8-20 Calcium 9.1 mg/dL Normal 8.6-10.3 Egfr Non- 42.4 >60 Egfr 51.3 >60 5 Urinalysis Profile 05/16/2019 [facility] Urine Color Yellow [address] [place] [address] [phone] Urine Appearance Cloudy Urine Specific [place] 1.010 Normal 1.010-1.030 Urine pH 7.0 Normal 5-9 Urine Urobilinogen Negative Negative Urine Ketones Negative Negative Urine Protein Negative Negative Urine Leukocytes 2+ Abnormal Negative Urine Blood Negative Negative Urine Nitrite Negative Negative Urine Bilirubin Negative Negative Urine Glucose Negative Negative Urine White Blood Cell 3+(>20/hpf) Abnormal Absent Urine Red Blood Cell 1+(3-5/hpf) Abnormal Absent Urine Bacteria Absent Absent Urine Renal Epithelial Cells Present Abnormal Absent Urine Culture And 05/16/2019 [facility] Urine Culture SEE RESULT [address] [place] [address] [phone] Urine Culture And 04/21/2019 [facility] Urine Culture SEE RESULT [address] [place] [address] [phone] Laboratory test 04/21/2019 [facility] Ferritin 60.5 ng/mL Normal 24-[address] [place] [address] [phone] Iron & Iron 04/21/2019 [facility] Iron 38 g/dL Low 50-[address] [place] [address] [phone] Unsaturated Iron Binding < 394 g/dL Total Iron Binding Capacity 409 g/dL Normal 250-450 Transferrin 292 mg/dL Normal 203-362 % Iron Saturation 9 % Low 15-55 Laboratory test 04/21/2019 [facility] Albumin 4.5 g/dL Normal 3.2-5.[address] [place] [address] [phone] Urinalysis 04/21/2019 [facility] Urine Color Yellow Profile [address] [place] [address] [phone] Urine Appearance Cloudy Urine Specific [place] 1.010 Normal 1.010-1.030 Urine pH 6.0 Normal [...] Absent Urine Bacteria Absent Absent Basic Metabolic 04/21/2019 [facility] Sodium 140 mmol/L Normal 135-[address] [place] [address] [phone] Potassium 4.7 mmol/L Normal 3.5-5.0 Chloride 111 mmol/L Normal 101-111 Co2 Carbon Dioxide 22 mmol/L Normal 22-32 Anion Gap 7 mmol/L Normal 2-11 Glucose 104 mg/dL High 70-100 Blood Urea Nitrogen 43 mg/dL High 6-24 Creatinine 1.81 mg/dL High 0.67-1.17 BUN/Creatinine Ratio 23.8 High 8-20 Calcium 9.0 mg/dL Normal 8.6-10.3 Egfr Non- 37.0 >60 Egfr 44.8 >60 9 CBC Auto 04/21/2019 [facility] White Blood 9.0 10^3/uL Normal 3.5-10.[address] [place] [address] [phone] Red Blood Count 3.49 10^6/uL Low 4.18-5.48 [...] % Nucleated Red Blood Cells % 0.0 Neph Routine 04/21/2019 [facility] Total Protein Random 33 mg/ dL [address] [place] [address] [phone] Creatinine Random Urine 50.15 mg/dL 11 Neph Routine 03/24/2019 [facility] Total Protein Random 27 mg/ dL [address] [place] [address] [phone] Creatinine Random Urine 60.28 mg/dL CBC Auto 03/24/2019 [facility] White Blood 9.3 10^3/uL Normal 3.5-10.[address] [place] [address] [phone] Red Blood Count 3.00 10^6/uL Low 4.18-5.48 [...] Blood Cells % 0.1 Basic Metabolic 03/24/2019 [facility] Sodium 139 mmol/L Normal 135-145 Panel [address] [place] [address] [phone] Potassium 5.0 mmol/L Normal 3.5-5.0 Chloride 111 mmol/L Normal 101-111 Co2 Carbon Dioxide 22 mmol/L Normal 22-32 Anion Gap 6 mmol/L Normal 2-11 Glucose 103 mg/dL High 70-100 Blood Urea Nitrogen 29 mg/dL High 6-24 Creatinine 1.88 mg/dL High 0.67-1.17 BUN/Creatinine Ratio 15.4 Normal 8-20 Calcium 8.6 mg/dL Normal 8.6-10.3 Egfr Non- 35.5 >60 Egfr 42.9 >60 12 Urinalysis Profile 03/24/2019 [facility] Urine Color Yellow [address] [place] [address] [phone] Urine Appearance Cloudy Urine Specific [place] 1.010 Normal 1.010-1.030 Urine pH 6.0 Normal 5-9 Urine Urobilinogen Negative Negative Urine Ketones Negative Negative Urine Protein Negative Negative Urine Leukocytes Trace Abnormal Negative Urine Blood Negative Negative * * Abnormal Negative 13 Urine Nitrite Negative Negative Urine Bilirubin Negative Negative Urine Glucose Negative Negative Urine White Blood Cell 1+(6-10/hpf) Abnormal Absent Urine Red Blood Cell Absent Absent Urine Bacteria Absent Absent Laboratory test 03/24/2019 [facility] Albumin 4.0 g/dL Normal 3.2-5.[address] [place] [address] [phone] Iron & Iron 03/24/2019 [facility] Iron 57 g/dL Normal 50- 212 Binding Capacity [address] [place] [address] [phone] Unsaturated Iron Binding < 342 g/dL Total Iron Binding Capacity 357 g/dL Normal 250-450 Transferrin 255 mg/dL Normal 203-362 % Iron Saturation 16 % Normal 15-55 Laboratory test 03/24/2019 [facility] Ferritin 80.8 Normal 24- [address] ng/[place] [address] [phone] Urine Culture And 03/24/2019 [facility] Urine SEE [address] [place] [place] [address] BELOW [phone] Urine Culture And 03/10/2019 [facility] Urine SEE 15, Sensitivities [address] Culture RESULT 16 [place] [address] BELOW [phone] Laboratory test 03/10/2019 [facility] Albumin 4.2 g/dL Normal 3.2-5.2 [address] [place], [place] [address] [phone] Basic Metabolic 03/10/2019 [facility] Sodium 139 Normal 135- [address] mmol/[place] [address] [phone] Potassium 4.3 mmol/L Normal 3.5-5.0 Chloride 113 mmol/L High 101-111 Co2 Carbon Dioxide 16 mmol/L Low 22-32 Anion Gap 10 mmol/L Normal 2-11 Glucose 128 mg/dL High 70-100 Blood Urea Nitrogen 50 mg/dL High 6-24 Creatinine 2.47 mg/dL High 0.67-1.17 BUN/Creatinine Ratio 20.2 High 8-20 Calcium 8.9 mg/dL Normal 8.6-10.3 Egfr Non- 25.9 >60 Egfr 31.3 >60 18 Laboratory test 03/10/2019 [facility] Creatinine Random 47.78 mg /dL [address] [place] [address] [phone] Total Protein Random Urine 48 mg/dL 20 CBC Auto 03/10/2019 [facility] White Blood 10.9 10^3/uL High 3.5-10.[address] [place] [address] [phone] Red Blood Count 3.10 10^6/uL Low 4.18-5.48 [...] Blood Cells % 0.0 Urinalysis Profile 03/10/2019 [facility] Urine Color Yellow [address] [place] [address] [phone] Urine Appearance Clear Urine Specific [place] 1.010 Normal 1.010-1.030 Urine pH 6.0 Normal 5-9 Urine Urobilinogen Negative Negative Urine Ketones Negative Negative Urine Protein Negative Negative Urine Leukocytes Trace Abnormal Negative Urine Blood Negative Negative * * Abnormal Negative 21 Urine Nitrite Negative Negative Urine Bilirubin Negative Negative Urine Glucose Negative Negative Urine White Blood Cell 2+(11-20/hpf) Abnormal Absent Urine Red Blood Cell Absent Absent Urine Bacteria Absent Absent Laboratory test 03/04/2019 [facility] Ferritin 122.7 Normal 24 -336 22, [address] ng/[place] [address] [phone] Iron & Iron 03/04/2019 [facility] Iron 56 g/dL Normal 50- [address] [place] [address] [phone] Unsaturated Iron Binding < 332 g/dL Total Iron Binding Capacity 347 g/dL Normal 250-450 Transferrin 248 mg/dL Normal 203-362 % Iron Saturation 16 % Normal 15-55 Laboratory test 03/04/2019 [facility] Albumin 3.9 g/dL Normal 3.2-5.[address] [place] [address] [phone] Hemoglobin A1c (Glyco HGB) 7.5 % High 4.0-5.6 25 Basic Metabolic 03/04/2019 [facility] Sodium 140 mmol/L Normal 135-[address] [place] [address] [phone] Potassium 5.0 mmol/L Normal 3.5-5.0 Chloride 116 mmol/L High 101-111 Co2 Carbon Dioxide 14 mmol/L Critical low 22-32 26 Anion Gap 10 mmol/L Normal 2-11 Glucose 118 mg/dL High 70-100 Blood Urea Nitrogen 73 mg/dL High 6-24 Creatinine 3.28 mg/dL High 0.67-1.17 BUN/Creatinine Ratio 22.3 High 8-20 Calcium 8.8 mg/dL Normal 8.6-10.3 Egfr Non- 18.6 >60 Egfr 22.6 >60 27 CBC Auto 03/04/2019 [facility] White Blood 10.8 10^3/uL Normal 3.5-10.[address] [place] [address] [phone] Red Blood Count 3.37 10^6/uL Low 4.18-5.48 [...] Cells % 0.0 Urine Culture And 03/04/2019 [facility] Urine Culture SEE RESULT [address] [place] [address] [phone] Urinalysis Profile 03/04/2019 [facility] Urine Color Yellow [address] [place] [address] [phone] Urine Appearance Cloudy Urine Specific [place] 1.011 Normal 1.010-1.030 Urine pH 6.0 Normal 5-9 Urine Urobilinogen Negative Negative Urine Ketones Negative Negative Urine Protein Negative Negative Urine Leukocytes 3+ Abnormal Negative Urine Blood 2+ Abnormal Negative Urine Nitrite Negative Negative Urine Bilirubin Negative Negative Urine Glucose Negative Negative Urine White Blood Cell 3+(>20/hpf) Abnormal Absent Urine Red Blood Cell 3+(>10/hpf) Abnormal Absent Urine Bacteria Absent Absent Neph Routine 03/04/2019 [facility] Total Protein Random 69 mg/ dL [address] [place] [address] [phone] Creatinine Random Urine 72.89 mg/dL 30 Comp Metabolic 03/04/2019 [facility] Sodium 142 mmol/L Normal 135-[address] [place] [address] [phone] Potassium 4.6 mmol/L Normal 3.5-5.0 Co2 Carbon [...] Egfr Non- 19.1 >60 Egfr 23.1 >60 31 Chloride 120 mmol/L High 101-111 Anion Gap 7 mmol/L Normal 2-11 CBC Auto 03/04/2019 [facility] White Blood 9.5 10^3/uL Normal 3.5-10.[address] [place] [address] [phone] Red Blood Count 3.07 10^6/uL Low 4.18-5.48 [...] Blood Cells % 0.0 Urinalysis Profile 03/04/2019 [facility] Urine Color Yellow [address] [place] [address] [phone] Urine Appearance Clear Urine Specific [place] 1.010 Normal 1.010-1.030 Urine pH 7.0 Normal 5-9 Urine Urobilinogen Negative Negative Urine Ketones Negative Negative Urine Protein Negative Negative Urine Leukocytes Trace Abnormal Negative Urine Blood Negative Negative Urine Nitrite Negative Negative Urine Bilirubin Negative Negative Urine Glucose Negative Negative Urine White Blood Cell 1+(6-10/hpf) Abnormal Absent Urine Red Blood Cell Absent Absent Urine Bacteria Absent Absent Basic Metabolic 03/04/2019 [facility] Sodium 142 mmol/L Normal 135-145 Panel [address] [place] [address] [phone] Potassium 4.5 mmol/L Normal 3.5-5.0 Glucose 125 mg/dL High 70-100 Blood Urea Nitrogen 72 mg/dL High 6-24 Creatinine 3.24 mg/dL High 0.67-1.17 BUN/Creatinine Ratio 22.2 High 8-20 Calcium 8.5 mg/dL Low 8.6-10.3 Egfr Non- 18.9 >60 Egfr 22.9 >60 32 Chloride 118 mmol/L High 101-111 Co2 Carbon Dioxide 14 mmol/L Critical low 22-32 33 Anion Gap 10 mmol/L Normal 2-11 Xray 12/25/2018 [facility] SP Lumbarsacral 4+ VWS <pending> [address] [place] [address] [phone] MRI Lumbar Spine W/O <pending> Comp Metabolic 12/16/2018 [facility] Sodium 141 mmol/L Normal 135-145 Panel [address] [place] [address] [phone] Potassium 4.9 mmol/L Normal 3.5-5.0 Chloride 111 [...] Non- 38.8 >60 Egfr 46.9 >60 34 Lipid Profile 12/16/2018 [facility] Triglycerides 141 mg/dL 35 (Trig/Chol/HDL) [address] [place] [address] [phone] Cholesterol 144 mg/dL 36 HDL Cholesterol 38.3 mg/dL 37 LDL Cholesterol 78 mg/dL 38 Urine Microalbumin 12/16/2018 [facility] Ur Microalbumin 109.3 mg/L Random [address] (mg/L) [place] [address] [phone] Urine Creatinine 83.70 mg/dL Urine Microalbumin/Creatinine 130.5 High <31 Basic Metabolic 12/16/2018 [facility] Sodium 141 mmol/L Normal 135-[address] [place] [address] [phone] Potassium 4.9 mmol/L Normal 3.5-5.0 Chloride 111 mmol/L Normal 101-111 Co2 Carbon Dioxide 23 mmol/L Normal 22-32 Anion Gap 7 mmol/L Normal 2-11 Glucose 134 mg/dL High 70-100 Blood Urea Nitrogen 36 mg/dL High 6-24 Creatinine 1.74 mg/dL High 0.67-1.17 BUN/Creatinine Ratio 20.7 High 8-20 Calcium 9.6 mg/dL Normal 8.6-10.3 Egfr Non- 38.8 >60 Egfr 46.9 >60 39 CBC Auto 12/16/2018 [facility] White Blood 7.7 10^3/uL Normal 3.5-10.[address] [place] [address] [phone] Red Blood Count 3.90 10^6/uL Low 4.18-5.48 [...] Blood Cells % 0.0 Laboratory test 12/16/2018 [facility] Total Protein 57 mg/dL finding [address] Random Urine [place], [place] [address] [phone] Urinalysis Profile 12/16/2018 [facility] Urine Color Yellow [address] [place] [address] [phone] Urine Appearance Cloudy Urine Specific [place] 1.011 Normal 1.010-1.030 Urine pH 6.0 Normal 5-9 Urine Urobilinogen Negative Negative Urine Ketones Negative Negative Urine Protein 1+(30 mg/dL) Abnormal Negative Urine Leukocytes 3+ Abnormal Negative Urine Blood Negative Negative * * Abnormal Negative 40 Urine Nitrite Negative Negative Urine Bilirubin Negative Negative Urine Glucose Negative Negative Urine White Blood Cell 3+(>20/hpf) Abnormal Absent Urine Red Blood Cell Absent Absent Urine Bacteria 1+ Abnormal Absent Laboratory test 12/16/2018 [facility] Creatinine 83.97 mg/dL finding [address] Random Urine [place], [place] [id number] [phone] Urine Culture And 12/16/2018 [facility] Urine Culture SEE RESULT [address] [place], [place] [address] [phone] Laboratory test 12/16/2018 [facility] Thyroxine 6.06 g/dL Low 6.[address]. [place] [address] 23 [phone] TSH (Thyroid Stim Horm) 1.41 mcIU/mL Normal 0.34-5.60 Vitamin B12 351 pg/mL Normal 180-914 42 1 Because ethnic data is not always [...] may interfere with detection of blood. 3 SEE RESULT BELOW Name: DARIO MANCINI : [address]: Jigar Canales MD Acct: [id number] Unit: [id number] AGE: 73 Location: LAB Re05/30/19 SEX: M Status: REG REF SPEC: [id number] JAROD: 05/30/19-[address] [facility] [address]: Jigar Canales MD REQ: [id number] RECD: 05/30/19-1328 STATUS: [facility] DR: Marco Vazquez MD _ SOURCE: URINE SPDESC: ORDERED: Urine Culture Procedure Result Reported Site Urine Culture Final 06/01/19- 0841 ML Organism 1 ENTEROCOCCUS FAECALIS [place] Count 75-100,000 (Many) CFU/ML 1. ENTEROCOCCUS FAECALIS M.I.C. RX --------- ------ Ampicillin <=2 S Penicillin 4 S Ciprofloxacin <=0.5 S Gentamicin High Level S Levofloxacin 1 S Nitrofurantoin <=16 S * Quinupristin/Dalfopristin 8 R * Streptomycin High Level S Tetracycline >=16 R Tigecycline <=0.12 S Vancomycin 1 S Imipenem-Deduced S * Ampicillin/Sulbactam-Deduced S CONTINUED ON NEXT PAGE DEPARTMENT OF PATHOLOGY, [address] [place] [address] Jorge Luis Davis M.D. Director [facility] # [id number] Specimen: [id number] Collected: 05/30/19-1310 Received: 05/30/19132 (Continued) Procedure Result Reported Site Urine Culture Final (continued) * These antibiotics are not available in the [facility] Formulary Contact the Microbiology Department for any additional antibiotic reporting. * ML - Main Lab . END OF REPORT DEPARTMENT OF PATHOLOGY, [address] [place] [address] Jorge Luis Davis M.D. Director [facility] # [id number] 4 Therapeutic target for the treatment of diabetes mellitus patients is <7% HBA1C, and in selective patients <6.0%. Please refer to [place] [employer] diabetic care guidelines for further information. 5 Because ethnic data is not always readily [...] 15-29 5 Kidney failure <15 (or dialysis) 6 SEE RESULT BELOW Name: DARIO MANCINI : [address]: Jigar Canales MD Acct: [id number] Unit: [id number] AGE: 73 Location: LAB Re05/16/19 SEX: M Status: REG REF SPEC: [id number] JAROD: 05/16/[address] [facility] [address]: Jigar Canales MD REQ: [id number] RECD: 05/16/19 STATUS: COMP _ SOURCE: URINE SPDESC: ORDERED: Urine Culture Procedure Result Reported Site Urine Culture Final 05/18/19741 ML Organism 1 ENTEROCOCCUS FAECALIS [place] Count >100,000 (Many) CFU/ML Organism 2 NORMAL CADENCE [place] Count 10-25,000 (Moderate) CFU/ML 1. ENTEROCOCCUS FAECALIS M.I.C. RX --------- ------ Ampicillin <=2 S Penicillin 4 S Ciprofloxacin <=0.5 S Gentamicin High Level S Levofloxacin 1 S Nitrofurantoin <=16 S * Quinupristin/Dalfopristin 8 R * Streptomycin High Level S Tetracycline >=16 R Tigecycline <=0.12 S Vancomycin 1 S Imipenem-Deduced S * Ampicillin/Sulbactam-Deduced S CONTINUED ON NEXT PAGE DEPARTMENT OF PATHOLOGY, [address] [place] [address] Jorge Luis Davis M.D. Director [facility] # [id number] Specimen: [id number] Collected: 05/16/19-1029 Received: 05/16/19-1047 (Continued) Procedure Result Reported Site Urine Culture Final (continued) * These antibiotics are not available in the [facility] Formulary Contact the Microbiology Department for any additional antibiotic reporting. * ML - Main Lab . END OF REPORT DEPARTMENT OF PATHOLOGY, [address] [place] [address] Jorge Luis Davis M.D. Director [facility] # [id number] 7 SEE RESULT BELOW Name: ADDISDARIO : [address]: Jigar Canales MD Acct: [id number] Unit: [id number] AGE: 73 Location: LAB Re04/21/19 SEX: M Status: REG REF SPEC: [id number] JAROD: 04/21/[address]: Jigar Canales MD REQ: [id number] RECD: 04/21/19 STATUS: COMP _ SOURCE: URINE SPDESC: ORDERED: Urine Culture Procedure Result Reported Site Urine Culture Final 04/22/19- 1440 ML No growth of clinically significant organisms * ML - Main Lab . END OF REPORT DEPARTMENT OF PATHOLOGY, [address] [place] [address] Jorge Luis Davis M.D. Director [facility] # [id number] 8 *Ascorbic acid is present which may interfere with detection of blood. 9 Because ethnic data is not always [...] 5 Kidney failure <15 (or dialysis) 10 CATH SPECIMEN 11 CATH SPECIMEN 12 Because ethnic data is not always readily [...] 15-29 5 Kidney failure <15 (or dialysis) 13 *Ascorbic acid is present which may interfere with detection of blood. 14 SEE RESULT BELOW Name: MANCINI,CRAIG : [address]: Jigar Canales MD Acct: [id number] Unit: [id number] AGE: 73 Location: LAB Re03/24/19 SEX: M Status: REG REF SPEC: [id number] JAROD: 03/24/[address]: Jigar Canales MD REQ: [id number] RECD: 03/24/19 STATUS: COMP _ SOURCE: URINE SPDESC: ORDERED: Urine Culture Procedure Result Reported Site Urine Culture Final 03/25/19- 1459 ML No Growth (<1,000 CFU/mL) * ML - Main Lab . END OF REPORT DEPARTMENT OF PATHOLOGY, [address] [place] [address] Jorge Luis Davis M.D. Director [facility] # [id number] 15 Next week. 16 SEE RESULT BELOW Name: DARIO MANCINI : [address]: Jigar Canales MD Acct: [id number] Unit: [id number] AGE: 73 Location: LAB Re03/10/19 SEX: M Status: REG REF SPEC: [id number] JAROD: 03/10/[address]: Jigar Canales MD REQ: [id number] RECD: 03/10/19 STATUS: COMP _ SOURCE: URINE SPDESC: ORDERED: Urine Culture Procedure Result Reported Site Urine Culture Final 03/11/19- 1443 ML No Growth (<1,000 CFU/mL) * ML - Main Lab . END OF REPORT DEPARTMENT OF PATHOLOGY, [address] [place] [address] Jorge Luis Davis M.D. Director [facility] # [id number] 17 Next week. 18 Because ethnic data is not always [...] 5 Kidney failure <15 (or dialysis) 19 Next week. 20 Next week. 21 *Ascorbic acid is present which may interfere with detection of blood. 22 Today 23 Today 24 Today 25 Therapeutic target for the treatment of diabetes mellitus patients is <7% HBA1C, and in selective patients <6.0%. Please refer to [place] [employer] diabetic care guidelines for further information. 26 Critical Result CO2:14 Called to REMBERTO Bello at: 10:23:35 by:[id number] Read back by:REMBERTO Bello 27 Because ethnic data is not always [...] 5 Kidney failure <15 (or dialysis) 28 SEE RESULT BELOW Name: DARIO MANCINI : [address]: Jigar Canales MD Acct: [id number] Unit: [id number] AGE: 73 Location: LAB Re03/04/19 SEX: M Status: REG REF SPEC: [id number] JAROD: 03/04/[address] [facility] [address]: Jigar Canales MD REQ: [id number] RECD: 03/04/19 STATUS: COMP [facility] DR: Prabha Washington MD PC _ SOURCE: URINE SPDESC: ORDERED: Urine Culture Procedure Result Reported Site Urine Culture Final 03/05/19- 1548 ML Organism 1 NANCY ALBICANS [place] Count 25-50,000 (Moderate) CFU/ML * ML - Main Lab . END OF REPORT DEPARTMENT OF PATHOLOGY, [address] [place] [address] Jorge Luis Davis M.D. Director [facility] # [id number] 29 Today 30 Today 31 Because ethnic data is not always readily [...] 15-29 5 Kidney failure <15 (or dialysis) 32 Because ethnic data is not always readily [...] 15-29 5 Kidney failure <15 (or dialysis) 33 Critical Result CO2:14 Called to [id number] at: 19:35:48 by:[id number] Read back by:[id number] 34 Because ethnic data is not always [...] 5 Kidney failure <15 (or dialysis) 35 Desirable: <150 Borderline High: 150-199 High: 200-499 Very High: >500 36 Desirable: <200 Borderline High: 200-239 High: >239 37 Low: <40 Desirable: 40-60 High: >60 38 Desirable: <100 Near Optimal: 100-129 Borderline High: 130-159 High: 160-189 Very High: >189 39 Because ethnic data is not always readily [...] 15-29 5 Kidney failure <15 (or dialysis) 40 *Ascorbic acid is present which may interfere with detection of blood. 41 SEE RESULT BELOW Name: DARIO MANCINI : [address]: Prabha Washington MD Acct: [id number] Unit: [id number] AGE: 73 Location: LAB Re12/16/18 SEX: M Status: REG REF SPEC: [id number] JAROD: 12/16/18-[address] [facility] [address]: Jigar Canales MD REQ: [id number] RECD: 12/16/18-1302 STATUS: [facility] DR: Prabha Washington MD PC _ SOURCE: URINE SPDESC: ORDERED: Urine Culture Procedure Result Reported Site Urine Culture Final 12/18/18- 0842 ML Organism 1 CITROBACTER FREUNDII [place] Count 25-50,000 (Moderate) CFU/ML 1. CITROBACTER FREUNDII [...] . END OF REPORT DEPARTMENT OF PATHOLOGY, [address] [place] [address] Jorge Luis Davis M.D. Director [facility] # [id number] 42 Normal Range 180 to 914 Indeterminate Range 145 to 180 Deficient Range <145 Procedures Date Code Description Status 02/09/2019 27213 ECHO Transthorasic Realtime 2D W Doppler & Color Flow Completed Hosp 05/15/2010 470253219 Diabetic Foot Exam Completed 04/28/2010 968547648 Diabetic Foot Exam Completed 02/28/2010 255798985 Diabetic Retinal Eye Exam Completed 04/01/2008 165994918 Diabetic Retinal Eye Exam Completed 02/26/2008 499135579 Diabetic Foot Exam Completed 02/05/2008 908235801 Diabetic Foot Exam Completed 02/25/2007 044844843 Diabetic Retinal Eye Exam Completed Medical Devices Description No Information Available Encounters Type Date Location Provider Dx Diagnosis Office Visit 06/02/2019 Pul[facility]ology [facility] Sleep Joanne Campos, R06.83 Snoring 8:30a [facility] ABELARDO, RN, ELECTRICAL MAINTENANCE ENGINEER-BC R53.83 Other fatigue Office Visit 05/19/2019 [facility] Damon Coch, E11.65 Type 2 diabetes 8:00a Endocrinology of mellitus with [facility] hyperglycemia E11.21 Type 2 diabetes mellitus with diabetic nephropathy I82.422 Acute embolism and thrombosis of left iliac vein Z79.84 halfway (current) use of oral hypoglycemic drugs Office Visit 05/18/2019 8:00a [facility] Nephrology Jigar King N18.3 Chronic kidney MD Parker disease, stage 3 (moderate) E11.22 Type 2 diabetes mellitus w diabetic chronic kidney disease I82.402 Acute embolism and thombos unsp deep veins of l low extrem N17.9 Acute kidney failure, unspecified Office Visit 04/22/2019 8:00a [facility] Nephneda King E11.22 Type 2 diabetes MD Parker mellitus w diabetic chronic kidney disease N18.3 Chronic kidney disease, stage 3 (moderate) N17.9 Acute kidney failure, unspecified Office Visit 03/25/2019 8:00a [facility] Nephneda King N17.9 Acute kidney MD [place] failure, unspecified 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 N18.3 Chronic kidney disease, stage 3 (moderate) Office Visit 03/11/2019 8:00a [facility] Nephneda King N17.9 Acute kidney MD [place] failure, unspecified 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 N18.3 Chronic kidney disease, stage 3 (moderate) E11.40 Type 2 diabetes mellitus with diabetic neuropathy, unsp N39.0 Urinary tract infection, site not specified Office Visit 03/04/2019 8:00a [facility] Nephrology Jigar King N17.9 Acute kidney [...] infection, site not specified Office Visit 02/12/2019 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 Iris E11.40 Type 2 diabetes Assoc,keri Hopper D.O. mellitus with Hospitalists diabetic neuropathy, unsp E11.22 Type 2 diabetes mellitus w diabetic chronic kidney disease N12 Tubulo-interstitial nephritis, not spcf as acute or chronic N18.3 Chronic kidney disease, stage 3 (moderate) Office Visit 02/09/2019 9:50a [facility] Iris A41.9 Sepsis, Assoc,keri Hopper D.O. unspecified Hospitalists organism R65.21 Severe sepsis with septic shock N12 Tubulo-interstitial nephritis, not spcf as acute or chronic N13.30 Unspecified hydronephrosis E11.40 Type 2 diabetes mellitus with diabetic neuropathy, unsp Office Visit 02/08/2019 [facility] Milly A41.9 Sepsis, 9:50a Assoc,keri Michaels MD unspecified Hospitalists organism R65.21 Severe sepsis with septic shock N12 Tubulo-interstitial nephritis, not spcf as acute or chronic N13.30 Unspecified hydronephrosis E11.9 Type 2 diabetes mellitus without complications Office Visit 02/07/2019 [facility] Bethany Rani, A41.9 Sepsis, 9:50a keri aMria M.D. unspecified Hospitalists organism R65.21 Severe sepsis with septic shock N39.0 Urinary tract infection, site not specified Office Visit 12/19/2018 [place] M54.16 Radiculopathy, 10:00a [facility] KATIE Brennan lumbar region Assessments Date Code Description Provider 06/09/2019 M54.32 Sciatica, left side Marco Carcamo MD 06/09/2019 E11.22 Type 2 diabetes mellitus with Marco Carcamo MD diabetic chronic kidney disease 06/09/2019 N17.9 Acute kidney failure, unspecified Marco Carcamo MD 06/09/2019 D84.9 Immunodeficiency, unspecified Marco Carcamo MD 06/02/2019 R06.83 Snoring Joanne Campos DNP, RN, [facility]- 06/02/2019 R53.83 Other fatigue Joanne Campos DNP, RN, [facility]-BC 06/01/2019 E87.5 Hyperkalemia Jigar Canales MD 06/01/2019 N18.3 Chronic kidney disease, stage 3 Jigar Canales MD (moderate) 06/01/2019 E11.22 Type 2 diabetes mellitus with Jigar Canales MD diabetic chronic kidney disease 06/01/2019 I12.9 Hypertensive chronic kidney disease Jigar Canales MD with stage 1 through stage 4 chronic kidney disease, or unspecified chronic kidney disease 06/01/2019 N17.9 Acute kidney failure, unspecified Jigar Canales MD 05/19/2019 E11.65 Type 2 diabetes mellitus with Nelson Vazquez MD hyperglycemia 05/19/2019 E11.21 Type 2 diabetes mellitus with Nelson Vazquez MD diabetic nephropathy 05/19/2019 I82.422 Acute embolism and thrombosis of Nelson Vazquez MD left iliac vein 05/19/2019 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 05/18/2019 N18.3 Chronic kidney disease, stage 3 Jigar Canales MD (moderate) 05/18/2019 E11.22 Type 2 diabetes mellitus with Jigar Canales MD diabetic chronic kidney disease 05/18/2019 I82.402 Acute embolism and thrombosis of Jigar Canales MD unspecified deep veins of left lower extremity 05/18/2019 N17.9 Acute kidney failure, unspecified Jigar Canales MD 04/22/2019 E11.22 Type 2 diabetes mellitus with Jigar Canales MD diabetic chronic kidney disease 04/22/2019 N18.3 Chronic kidney disease, stage 3 Jigar Canales MD (moderate) 04/22/2019 N17.9 Acute kidney failure, unspecified Jigar Canales MD 03/25/2019 N17.9 Acute kidney failure, unspecified Jigar Canales MD 03/25/2019 I12.9 Hypertensive chronic kidney disease Jigar Canales MD with stage 1 through stage 4 chronic kidney disease, or unspecified chronic kidney disease 03/25/2019 E11.22 Type 2 diabetes mellitus with Jigar Canales MD diabetic chronic kidney disease 03/25/2019 N18.3 Chronic kidney disease, stage 3 Jigar Canales MD (moderate) 03/11/2019 N17.9 Acute kidney failure, unspecified Jigar Canales MD 03/11/2019 I12.9 Hypertensive chronic kidney disease Jigar Canales MD with stage 1 through stage 4 chronic kidney disease, or unspecified chronic kidney disease 03/11/2019 E11.22 Type 2 diabetes mellitus with Jigar Canales MD diabetic chronic kidney disease 03/11/2019 N18.3 Chronic kidney disease, stage 3 Jigar Canales MD (moderate) 03/11/2019 E11.40 Type 2 diabetes mellitus with Jigar Canales MD diabetic neuropathy, unspecified 03/11/2019 N39.0 Urinary tract infection, site not Jigar Canales MD specified 03/04/2019 N17.9 Acute kidney failure, unspecified Jigar Canales MD 03/04/2019 I12.9 Hypertensive chronic kidney disease Jigar Canales MD with stage 1 through stage 4 chronic kidney disease, or unspecified chronic kidney disease 03/04/2019 E11.22 Type 2 diabetes mellitus with Jigar Canales MD diabetic chronic kidney disease 03/04/2019 N18.3 Chronic kidney disease, stage 3 Jigar Canales MD (moderate) 03/04/2019 E11.40 Type 2 diabetes mellitus with Jigar Canales MD diabetic neuropathy, unspecified 03/04/2019 N12 Tubulo-interstitial nephritis, not Jigar Canales MD specified as acute or chronic 03/04/2019 N39.0 Urinary tract infection, site not Jigar Canales MD specified 02/12/2019 A40.1 Sepsis due to streptococcus, group B Sue O'anton, PA-C 02/12/2019 R65.21 Severe sepsis with septic shock Sue Eugenia'anton, PA-C 02/12/2019 E11.40 Type 2 diabetes mellitus with Suemeghan Sarah PA-C diabetic neuropathy, unspecified 02/12/2019 E11.22 Type 2 diabetes mellitus with Suemeghan Sarah, PA-C diabetic chronic kidney disease 02/12/2019 N18.3 Chronic kidney disease, stage 3 Suemeghan Sarah PA-C (moderate) 02/12/2019 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 diabetic neuropathy, unspecified 02/10/2019 E11.22 Type 2 diabetes mellitus with Irispantera Hopper D.O. diabetic chronic kidney disease 02/10/2019 N12 Tubulo-interstitial nephritis, not Iris Ward, D.O. specified as acute or chronic 02/10/2019 N18.3 Chronic kidney disease, stage 3 Iris Ward, D.O. (moderate) 02/09/2019 R78.81 Bacteremia Mak Boswell M.D. 02/09/2019 A41.9 Sepsis, unspecified organism Iris Hopper D.O. 02/09/2019 R65.21 Severe sepsis with septic shock Iris Hopper D.O. 02/09/2019 N12 Tubulo-interstitial nephritis, not Holli Ignacio.O. specified as acute or chronic 02/09/2019 N13.30 Unspecified hydronephrosis Iris Hopper D.O. 02/09/2019 E11.40 Type 2 diabetes mellitus with Iris Hopper D.O. diabetic neuropathy, unspecified 02/08/2019 A41.9 Sepsis, unspecified organism [...] specified 12/19/2018 M54.16 Lumbar radiculopathy KATIE Nava Plan of Treatment Future Appointment(s):07/15/2019 4:40 pm - Marco Carcamo MD at [facility] Internal Medicine - [address]/15/2019 8:15 am - Joanne Campos DNP, RN, ELECTRICAL MAINTENANCE ENGINEER-BC at [facility]11/17/2019 8:00 am - Nelson Vazquez MD at [facility]06/17/2019 8:00 am - Jigar Canales MD at [facility] Pjuenhjplu13/28/2020 9:30 am - Vinayak Martinez M.D. at [facility] [place] [facility]06/09/2019 - Marco Carcamo, MDM54.32 Sciatica, left sideNew Xrays:MRI Lumbar Spine W, Ordered: 06/09/19New Therapy:Physical TherapyComments:It is okay to take Tylenol 650mg every 6 hours. Continue to experiment with the lidocaine patch. Continue the gabapentin and PT.Referral: Wojciech Arthur MD, Surgery,WrwkhmiyzykcZ49.22 Type 2 diabetes mellitus with diabetic chronic kidney mhccdemW01.9 Acute kidney failure, npqvsgsomdsY98.9 Immunodeficiency, unspecified Functional Status Description No Information Available Mental Status Description No Information Available Referrals Refer to Reason for Referral Status Appt Date Wojciech Arthur MD sciatica after a fall (November 2018). moderate to Created severe narrowing L3-L4, L4-5. chronic compression deformity L1. [address] [facility] [address] [place] [id number] [phone]
--- OUTSIDE RECORDS SUMMARY | 2019-06-23 09:19 | XMS REPORT | Continuity of Care Document ---
:1945 External Reference #:[id number] Author Name Jigar Canales MD (transmitted by agent of provider Cee Zhang) Address [address] [address] Care Team Providers Name Role Phone Chuy Escalera MD - Endocrinology, Care Team Information Nuclear Medicine Chief Technologist Diabetes & Metabolism Prabha Washington MD - Internal Care Team Information Nuclear Medicine Chief Technologist Medicine Marco Carcamo MD - Hospitalist Care Team Information Nuclear Medicine Chief Technologist [phone] Problems Active Problems Provider Date Type 2 diabetes mellitus Kiran Davis, 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/2007 Martir,GELYP Neuralgia Neuritis & Radiculitis Kiran Davis, 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/2007 Unspecified Martir,FACP Lyme disease Kiran Davis, 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/2007 Martir,GELYP Pure hypercholesterolemia Kiran Davis, 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/2007 Martir,FACP 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, 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 Martir,FACP Anticoagulants Pipeliner (Current) Use Kiran Davis, 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/2007 Encounter Martir,FACP Sleep apnea Kiran Davis, Onset: 06/18/2007 Martir,FACP Peripheral venous insufficiency Kiran Davis, Onset: 06/18/2007 Martir,FACP Diabetic polyneuropathy Kiran Davis, Onset: 10/07/2007 Martir,FACP 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 Kiran Davis, Onset: 06/17/2008 mellitus [facility] Hyperlipidemia Wojciech Jones M.D., [facility], Onset: 04/16/2013 [facility] Benign essential hypertension Wojciech Jones M.D., [facility], Onset: 04/16/2013 [facility] Chronic ischemic heart disease Wojciech Jones M.D., [facility], Onset: 04/16/2013 [facility] Essential hypertension Wojciech Jones M.D., [facility], Onset: 08/01/2015 [facility] Atherosclerotic heart disease of moapa Wojciech Jones M.D., [facility], 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 Onset: 11/03/2018 Coronary atherosclerosis Noble Chen M.D. Onset: 11/11/2018 Social History Type Date Description Comments Sex Unknown Tobacco Use Start: Unknown Never Smoked Cigarettes ETOH Use consumes 1-2 glasses of wine per week Recreational Drug Use Never Used Drugs Tobacco Use Start: Unknown Patient has never smoked Smoking Status Reviewed: 06/01/19 Patient has never smoked Exercise Type/Frequency Exercises rarely Allergies, Adverse Reactions, Alerts Active Allergies Reaction Severity Comments Date NKDA 04/06/2014 Latex Rash 04/06/2014 Adhesives blisters 04/06/2014 Inactive Allergies None 03/18/2007 NKDA 04/16/2013 S 06/03/2013 Medications Active Medications SIG Qnty Indications Ordering Provider Date Glipizide ER 2 by mouth every 30tabs Nelson Vazquez MD 05/19/2019 5mg day Tablets ER 24HR Tradjenta 5mg every day in 30tabs E11.22 Nelson Vazquez MD 05/19/2019 5mg Tablets the morning Ferrousul 1 tab by mouth 3 90tabs [facility], 03/25/2019 325(65Fe) times a week MD mg Tablets Sodium Bicarbonate 2 tab by mouth 360tabs [facility], 03/11/2019 twice times MD 650mg Tablets daily Gabapentin By mouth twice [facility], 03/11/2019 300mg daily MD Capsules Lisinopril 1 by mouth every Wojciech Jones M.D., 11/14/2018 5mg day FACC, FSCAI Tablets Dermacea Gauze Roll Wrap foot bid 4rolls E11.621 Gavi Carreno, 2018 4"X4-1/8Yd M.D. 4"X4-1/8 Misc M86.172 Gauze Sponge Apply bid 60units M86.172 Gavi Carreno M.D. 07/19/2018 4"X4" Pads E11.621 Syringe/Luer use for injection of 12units Bhupinder JimenezYuniel Weller, 04/17/2018 Slip/1ML/27G X 1/2" Vitamin B [...] FSCAI pain, if no relief call 911 [employer] Starter Pack 1 by mouth twice a [...] Regadenoson, 0.1 MG Juan C Grey, DO [facility] 11/27/2018 Injection Technetium TC 99M Juan C Grey, DO [facility] 11/27/2018 Tetrofosmin, Per Unit Dose Up To 40 Millicuries Injection Technetium TC 99M Juan C Grey, DO [facility] 11/27/2018 Tetrofosmin, Per Unit Dose Up To 40 Millicuries Injection Depomedrol 40MG Sofya Borrego M.D. 11/03/2018 Injection Celestone 3 mg and 3mg Mela Catherine-Young, 05/05/2014 Injection M.D. Celestone 3 mg and 3mg Mela Catherine-Young, 04/06/2014 Injection M.DYuniel Immunizations CPT Code Status Date Vaccine Lot # [id number] Given 02/23/2010 Influenza Virus 3Yrs & Over [id number] Given 02/15/2009 Influenza Virus Vaccine, Pandemic Formulation 65189 Given 02/15/2009 Influenza Virus Vaccine, Pandemic Formulation [id number] 26365 Given 02/15/2009 Administration Swine Flu Shot [id number] Given 03/18/2007 Influenza Virus 3Yrs & Over 25745 Given 03/18/2007 Influenza Virus 3Yrs & Over [id number] 53740 Given 02/21/2000 Influenza Virus 3Yrs & Over Vital Signs Date Vital Result Comment 06/01/2019 8:11am Height 71 inches 5'11" Weight 221.00 lb Heart Rate 75 /min BP Systolic Sitting 128 mmHg BP Diastolic Sitting 70 mmHg O2 % BldC Oximetry 75 % BMI (Body Mass Index) 30.8 kg/m2 05/19/2019 7:59am Height 71 inches 5'11" Weight 219.00 lb w/ shoes Heart Rate 68 /min BP Systolic Sitting 140 mmHg BP Diastolic Sitting 75 mmHg BMI (Body Mass Index) 30.5 kg/m2 Results Test Acquired Date Facility Test Result H/L Range Note Laboratory test 05/30/2019 [facility] Albumin 4.8 g/dL Normal 3.2-5.[address] [place] [address] [phone] Neph Routine 05/30/2019 [facility] Total 34 mg/dL [address] [place] [address] Random Urine [phone] Creatinine Random Urine 64.28 mg/dL CBC Auto 05/30/2019 [facility] White Blood 8.4 10^3/uL Normal 3.5-10.8 Diff [address] [place] [address] [phone] Red Blood Count 4.23 10^6/uL Normal 4.18-5.48 [...] Blood Cells % 0.0 Basic Metabolic 05/30/2019 [facility] Sodium 141 mmol/L Normal 135-[address] [place], [place] [id number] [phone] Chloride 111 mmol/L Normal 101-111 Co2 Carbon Dioxide 26 mmol/L Normal 22-32 Calcium 9.6 mg/dL Normal 8.6-10.3 Potassium 5.4 mmol/L High 3.5-5.0 Anion Gap 4 mmol/L Normal 2-11 Glucose 118 mg/dL High 70-100 Blood Urea Nitrogen 39 mg/dL High 6-24 Creatinine 2.03 mg/dL High 0.67-1.17 BUN/Creatinine Ratio 19.2 Normal 8-20 Egfr Non- 32.4 >60 Egfr 39.3 >60 1 Urinalysis Profile 05/30/2019 [facility] [place]rine [place] [address] [phone] Urine Appearance Cloudy Urine Specific [place] 1.011 Normal 1.010-1.030 Urine pH 7.0 Normal [...] Present Abnormal Absent Urine Culture And 05/30/2019 [facility] Urine Culture SEE RESULT [address] [place] [address] [phone] Laboratory test 05/30/2019 [facility] Hemoglobin A1c 7.1 % High 4.0- [address] (Glyco HGB) 5.6 [place], [place] [id number] [phone] Neph Routine 05/16/2019 [facility] Total Protein 29 mg/dL [place] [address] [phone] Creatinine Random Urine 58.65 mg/dL CBC Auto 05/16/2019 [facility] White Blood 7.2 10^3/uL Normal 3.5-10.[address] [place] [address] [phone] Red Blood Count 3.80 10^6/uL Low 4.18-5.48 [...] Blood Cells % 0.0 Basic Metabolic 05/16/2019 [facility] Sodium 139 mmol/L Normal 135-[address] [place] [address] [phone] Potassium 4.8 mmol/L Normal 3.5-5.0 Chloride 108 mmol/L Normal 101-111 Co2 Carbon Dioxide 24 mmol/L Normal 22-32 Anion Gap 7 mmol/L Normal 2-11 Glucose 131 mg/dL High 70-100 Blood Urea Nitrogen 30 mg/dL High 6-24 Creatinine 1.61 mg/dL High 0.67-1.17 BUN/Creatinine Ratio 18.6 Normal 8-20 Calcium 9.1 mg/dL Normal 8.6-10.3 Egfr Non- 42.4 >60 Egfr 51.3 >60 5 Urinalysis Profile 05/16/2019 [facility] Urine Color Yellow [address] [place] [address] [phone] Urine Appearance Cloudy Urine Specific [place] 1.010 Normal 1.010-1.030 Urine pH 7.0 Normal [...] Present Abnormal Absent Urine Culture And 05/16/2019 [facility] Urine Culture SEE RESULT [address] [place] [address] [phone] Urine Culture And 04/21/2019 [facility] Urine Culture SEE RESULT [address] [place] [address] [phone] Laboratory test 04/21/2019 [facility] Ferritin 60.5 ng/mL Normal 24-[address] [place] [address] [phone] Iron & Iron 04/21/2019 [facility] Iron 38 g/dL Low 50-[address] [place] [address] [phone] Unsaturated Iron Binding < 394 g/dL Total Iron Binding Capacity 409 g/dL Normal 250-450 Transferrin 292 mg/dL Normal 203-362 % Iron Saturation 9 % Low 15-55 Laboratory test 04/21/2019 [facility] Albumin 4.5 g/dL Normal 3.2-5.[address] [place] [address] [phone] Urinalysis 04/21/2019 [facility] Urine Color Yellow Profile [address] [place] [address] [phone] Urine Appearance Cloudy Urine Specific [place] 1.010 Normal 1.010-1.030 Urine pH 6.0 Normal [...] Urine Bacteria Absent Absent Basic Metabolic 04/21/2019 [facility] Sodium 140 mmol/L Normal 135-[address] [place] [address] [phone] Potassium 4.7 mmol/L Normal 3.5-5.0 Chloride 111 mmol/L Normal 101-111 Co2 Carbon Dioxide 22 mmol/L Normal 22-32 Anion Gap 7 mmol/L Normal 2-11 Glucose 104 mg/dL High 70-100 Blood Urea Nitrogen 43 mg/dL High 6-24 Creatinine 1.81 mg/dL High 0.67-1.17 BUN/Creatinine Ratio 23.8 High 8-20 Calcium 9.0 mg/dL Normal 8.6-10.3 Egfr Non- 37.0 >60 Egfr 44.8 >60 9 CBC Auto 04/21/2019 [facility] White Blood 9.0 10^3/uL Normal 3.5-10.[address] [place] [address] [phone] Red Blood Count 3.49 10^6/uL Low 4.18-5.48 [...] Blood Cells % 0.0 Neph Routine 04/21/2019 [facility] Total Protein Random 33 mg/ dL [address] [place] [address] [phone] Creatinine Random Urine 50.15 mg/dL 11 Neph Routine 03/24/2019 [facility] Total Protein Random 27 mg/ dL [address] [place] [address] [phone] Creatinine Random Urine 60.28 mg/dL CBC Auto 03/24/2019 [facility] White Blood 9.3 10^3/uL Normal 3.5-10.[address] [place] [address] [phone] Red Blood Count 3.00 10^6/uL Low 4.18-5.48 [...] Blood Cells % 0.1 Basic Metabolic 03/24/2019 [facility] Sodium 139 mmol/L Normal 135-[address] [place] [address] [phone] Potassium 5.0 mmol/L Normal 3.5-5.0 Chloride 111 mmol/L Normal 101-111 Co2 Carbon Dioxide 22 mmol/L Normal 22-32 Anion Gap 6 mmol/L Normal 2-11 Glucose 103 mg/dL High 70-100 Blood Urea Nitrogen 29 mg/dL High 6-24 Creatinine 1.88 mg/dL High 0.67-1.17 BUN/Creatinine Ratio 15.4 Normal 8-20 Calcium 8.6 mg/dL Normal 8.6-10.3 Egfr Non- 35.5 >60 Egfr 42.9 >60 12 Urinalysis Profile 03/24/2019 [facility] Urine Color Yellow [address] [place] [address] [phone] Urine Appearance Cloudy Urine Specific [place] 1.010 Normal 1.010-1.030 Urine pH 6.0 Normal [...] Urine Bacteria Absent Absent Laboratory test 03/24/2019 [facility] Albumin 4.0 g/dL Normal 3.2-5.[address] [place] [address] [phone] Iron & Iron 03/24/2019 [facility] Iron 57 g/dL Normal 50- 212 Binding Capacity [address] [place] [address] [phone] Unsaturated Iron Binding < 342 g/dL Total Iron Binding Capacity 357 g/dL Normal 250-450 Transferrin 255 mg/dL Normal 203-362 % Iron Saturation 16 % Normal 15-55 Laboratory test 03/24/2019 [facility] Ferritin 80.8 Normal 24- [address] ng/[place] [address] [phone] Urine Culture And 03/24/2019 [facility] Urine SEE [address] [place] [address] BELOW [phone] Urine Culture And 03/10/2019 [facility] Urine SEE 15, Sensitivities [address] Culture RESULT 16 [place] [address] BELOW [phone] Laboratory test 03/10/2019 [facility] Albumin 4.2 g/dL Normal 3.2-5.2 [address] [place] [address] [phone] Basic Metabolic 03/10/2019 [facility] Sodium 139 Normal 135- [address] mmol/L [place], [place] [address] [phone] Potassium 4.3 mmol/L Normal 3.5-5.0 Chloride 113 mmol/L High 101-111 Co2 Carbon Dioxide 16 mmol/L Low 22-32 Anion Gap 10 mmol/L Normal 2-11 Glucose 128 mg/dL High 70-100 Blood Urea Nitrogen 50 mg/dL High 6-24 Creatinine 2.47 mg/dL High 0.67-1.17 BUN/Creatinine Ratio 20.2 High 8-20 Calcium 8.9 mg/dL Normal 8.6-10.3 Egfr Non- 25.9 >60 Egfr 31.3 >60 18 Laboratory test 03/10/2019 [facility] Creatinine Random 47.78 mg /dL [address] [place] [address] [phone] Total Protein Random Urine 48 mg/dL 20 CBC Auto 03/10/2019 [facility] White Blood 10.9 10^3/uL High 3.5-10.[address] [place] [address] [phone] Red Blood Count 3.10 10^6/uL Low 4.18-5.48 [...] Blood Cells % 0.0 Urinalysis Profile 03/10/2019 [facility] Urine Color Yellow [address] [place] [address] [phone] Urine Appearance Clear Urine Specific [place] 1.010 Normal 1.010-1.030 Urine pH 6.0 Normal [...] Urine Bacteria Absent Absent Laboratory test 03/04/2019 [facility] Ferritin 122.7 Normal 24 -336 22, [address] ng/[place] [address] [phone] Iron & Iron 03/04/2019 [facility] Iron 56 g/dL Normal 50- [address] [place] [address] [phone] Unsaturated Iron Binding < 332 g/dL Total Iron Binding Capacity 347 g/dL Normal 250-450 Transferrin 248 mg/dL Normal 203-362 % Iron Saturation 16 % Normal 15-55 Laboratory test 03/04/2019 [facility] Albumin 3.9 g/dL Normal 3.2-5.[address] [place] [address] [phone] Hemoglobin A1c (Glyco HGB) 7.5 % High 4.0-5.6 25 Basic Metabolic 03/04/2019 [facility] Sodium 140 mmol/L Normal 135-[address] [place] [address] [phone] Potassium 5.0 mmol/L Normal 3.5-5.0 Chloride 116 mmol/L High 101-111 Co2 Carbon Dioxide 14 mmol/L Critical low 22-32 26 Anion Gap 10 mmol/L Normal 2-11 Glucose 118 mg/dL High 70-100 Blood Urea Nitrogen 73 mg/dL High 6-24 Creatinine 3.28 mg/dL High 0.67-1.17 BUN/Creatinine Ratio 22.3 High 8-20 Calcium 8.8 mg/dL Normal 8.6-10.3 Egfr Non- 18.6 >60 Egfr 22.6 >60 27 CBC Auto 03/04/2019 [facility] White Blood 10.8 10^3/uL Normal 3.5-10.[address] [place] [address] [phone] Red Blood Count 3.37 10^6/uL Low 4.18-5.48 [...] Cells % 0.0 Urine Culture And 03/04/2019 [facility] Urine Culture SEE RESULT [address] [place] [address] [phone] Urinalysis Profile 03/04/2019 [facility] Urine Color Yellow [address] [place] [address] [phone] Urine Appearance Cloudy Urine Specific [place] 1.011 Normal 1.010-1.030 Urine pH 6.0 Normal 5-9 Urine Urobilinogen Negative Negative Urine Ketones Negative Negative Urine Protein Negative Negative Urine Leukocytes 3+ Abnormal Negative Urine Blood 2+ Abnormal Negative Urine Nitrite Negative Negative Urine Bilirubin Negative Negative Urine Glucose Negative Negative Urine White Blood Cell 3+(>20/hpf) Abnormal Absent Urine Red Blood Cell 3+(>10/hpf) Abnormal Absent Urine Bacteria Absent Absent Neph Routine 03/04/2019 [facility] Total Protein Random 69 mg/ dL [address] [place] [address] [phone] Creatinine Random Urine 72.89 mg/dL 30 Comp Metabolic 03/04/2019 [facility] Sodium 142 mmol/L Normal 135-[address] [place] [address] [phone] Potassium 4.6 mmol/L Normal 3.5-5.0 Co2 Carbon [...] 7 mmol/L Normal 2-11 CBC Auto 03/04/2019 [facility] White Blood 9.5 10^3/uL Normal 3.5-10.[address] [place] [address] [phone] Red Blood Count 3.07 10^6/uL Low 4.18-5.48 [...] Blood Cells % 0.0 Urinalysis Profile 03/04/2019 [facility] Urine Color Yellow [address] [place] [address] [phone] Urine Appearance Clear Urine Specific [place] 1.010 Normal 1.010-1.030 Urine pH 7.0 Normal 5-9 Urine Urobilinogen Negative Negative Urine Ketones Negative Negative Urine Protein Negative Negative Urine Leukocytes Trace Abnormal Negative Urine Blood Negative Negative Urine Nitrite Negative Negative Urine Bilirubin Negative Negative Urine Glucose Negative Negative Urine White Blood Cell 1+(6-10/hpf) Abnormal Absent Urine Red Blood Cell Absent Absent Urine Bacteria Absent Absent Basic Metabolic 03/04/2019 [facility] Sodium 142 mmol/L Normal 135-145 Panel [address] [place] [address] [phone] Potassium 4.5 mmol/L Normal 3.5-5.0 Glucose 125 mg/dL High 70-100 Blood Urea Nitrogen 72 mg/dL High 6-24 Creatinine 3.24 mg/dL High 0.67-1.17 BUN/Creatinine Ratio 22.2 High 8-20 Calcium 8.5 mg/dL Low 8.6-10.3 Egfr Non- 18.9 >60 Egfr 22.9 >60 32 Chloride 118 mmol/L High 101-111 Co2 Carbon Dioxide 14 mmol/L Critical low 22-32 33 Anion Gap 10 mmol/L Normal 2-11 Xray 12/25/2018 [facility] SP Lumbarsacral 4+ VWS <pending> [address] [place] [address] [phone] MRI Lumbar Spine W/O <pending> Comp Metabolic 12/16/2018 [facility] Sodium 141 mmol/L Normal 135-145 Panel [address] [place] [address] [phone] Potassium 4.9 mmol/L Normal 3.5-5.0 Chloride 111 [...] Egfr 46.9 >60 34 Lipid Profile 12/16/2018 [facility] Triglycerides 141 mg/dL 35 (Trig/Chol/HDL) [address] [place] [address] [phone] Cholesterol 144 mg/dL 36 HDL Cholesterol 38.3 mg/dL 37 LDL Cholesterol 78 mg/dL 38 Urine Microalbumin 12/16/2018 [facility] Ur Microalbumin 109.3 mg/L Random [address] (mg/L) [place] [address] [phone] Urine Creatinine 83.70 mg/dL Urine Microalbumin/Creatinine 130.5 High <31 Basic Metabolic 12/16/2018 [facility] Sodium 141 mmol/L Normal 135-[address] [place] [address] [phone] Potassium 4.9 mmol/L Normal 3.5-5.0 Chloride 111 mmol/L Normal 101-111 Co2 Carbon Dioxide 23 mmol/L Normal 22-32 Anion Gap 7 mmol/L Normal 2-11 Glucose 134 mg/dL High 70-100 Blood Urea Nitrogen 36 mg/dL High 6-24 Creatinine 1.74 mg/dL High 0.67-1.17 BUN/Creatinine Ratio 20.7 High 8-20 Calcium 9.6 mg/dL Normal 8.6-10.3 Egfr Non- 38.8 >60 Egfr 46.9 >60 39 CBC Auto 12/16/2018 [facility] White Blood 7.7 10^3/uL Normal 3.5-10.[address] [place] [address] [phone] Red Blood Count 3.90 10^6/uL Low 4.18-5.48 [...] Blood Cells % 0.0 Laboratory test 12/16/2018 [facility] Total Protein 57 mg/dL finding [address] Random Urine [place], [place] [address] [phone] Urinalysis Profile 12/16/2018 [facility] Urine Color Yellow [address] [place] [address] [phone] Urine Appearance Cloudy Urine Specific [place] 1.011 Normal 1.010-1.030 Urine pH 6.0 Normal [...] Bacteria 1+ Abnormal Absent Laboratory test 12/16/2018 [facility] Creatinine 83.97 mg/dL finding [address] Random Urine [place], [place] [address] [phone] Urine Culture And 12/16/2018 [facility] Urine Culture SEE RESULT [address] [place], [place] [address] [phone] Laboratory test 12/16/2018 [facility] Thyroxine 6.06 g/dL Low 6.[address]. [place] [address] [phone] TSH (Thyroid Stim Horm) 1.41 mcIU/mL Normal [...] [address]: Jigar Canales MD Acct: [id number] Unit: [id number] AGE: 73 Location: LAB Re05/30/19 SEX: M Status: REG REF SPEC: [id number] JAROD: 05/30/19-1310 [facility] DR: Jigar Canales MD REQ: [id number] RECD: 05/30/19-1328 STATUS: RES [facility] DR: Marco Vazquez MD _ SOURCE: URINE SPDESC: ORDERED: Urine Culture Procedure Result Reported Site Urine Culture Preliminary 05/31/19- 1552 ML Organism 1 ENTEROCOCCUS FAECALIS [place] Count 75-100,000 (Many) CFU/ML * ML - Main Lab . END OF REPORT DEPARTMENT OF PATHOLOGY, [address] [place] [address] Jorge Luis Davis M.D. Director [facility] # [id number] 4 Therapeutic target for the treatment of diabetes mellitus patients is <7% HBA1C, and in selective patients <6.0%. Please refer to [place] [employer] diabetic care guidelines for further [...] [address]: Jigar Canales MD Acct: [id number] Unit: [id number] AGE: 73 Location: LAB Re05/16/19 SEX: M Status: REG REF SPEC: [id number] JAROD: 05/16/19-1030 [facility] DR: Jigar Canales MD REQ: [id number] RECD: 05/16/19 STATUS: COMP _ SOURCE: URINE SPDESC: ORDERED: Urine Culture Procedure Result Reported Site Urine Culture Final 05/18/19- 0742 ML Organism 1 ENTEROCOCCUS FAECALIS [place] Count >100,000 (Many) CFU/ML Organism 2 NORMAL CADENCE [place] Count 10-25,000 (Moderate) CFU/ML 1. ENTEROCOCCUS FAECALIS [facility]. RX --------- ------ Ampicillin <=2 S Penicillin 4 S Ciprofloxacin <=0.5 S Gentamicin High Level S Levofloxacin 1 S Nitrofurantoin <=16 S * Quinupristin/Dalfopristin 8 R * Streptomycin High Level S Tetracycline >=16 R Tigecycline <=0.12 S Vancomycin 1 S Imipenem-Deduced S * Ampicillin/Sulbactam-Deduced S CONTINUED ON NEXT PAGE DEPARTMENT OF PATHOLOGY, [facility] [employer] [place] [address] Jorge Luis Davis M.D. Director [facility] # [id number] Specimen: [id number] Collected: 05/16/19 Received: 05/16/19 (Continued) Procedure Result Reported Site Urine Culture Final (continued) * These antibiotics are not available in the [facility] Formulary Contact the Microbiology Department for any additional antibiotic reporting. * - Main Lab . END OF REPORT DEPARTMENT OF PATHOLOGY, [facility] [employer] [place], [place] [address] Jorge Luis Davis M.D. Director [facility] # [id number] 7 SEE RESULT BELOW Name: DARIO MANCINI : [address]: Jigar Canales MD Acct: [id number] Unit: [id number] AGE: 73 Location: LAB Re04/21/19 SEX: M Status: REG REF SPEC: [id number] JAROD: 04/21/[address]: Jigar Canales MD REQ: [id number] RECD: 04/21/19 STATUS: COMP _ SOURCE: URINE SPDESC: ORDERED: Urine Culture Procedure Result Reported Site Urine Culture Final 04/22/19- 1440 ML No growth of clinically significant organisms * ML - Main Lab . END OF REPORT DEPARTMENT OF PATHOLOGY, [address] [place] [address] Jorge Luis Davis M.D. Director [facility] # [id number] 8 *Ascorbic acid is present which may [...] of blood. 14 SEE RESULT BELOW Name: DARIO MANCINI : [address]: Jigar Canales MD Acct: [id number] Unit: [id number] AGE: 73 Location: LAB Re03/24/19 SEX: M Status: REG REF SPEC: [id number] JAROD: 03/24/[address]: Jigar Canales MD REQ: [id number] RECD: 03/24/19 STATUS: COMP _ SOURCE: URINE SPDESC: ORDERED: Urine Culture Procedure Result Reported Site Urine Culture Final 03/25/19- 1459 ML No Growth (<1,000 CFU/mL) * ML - Main Lab . END OF REPORT DEPARTMENT OF PATHOLOGY, [address] [place] [address] Jorge Luis Davis M.D. Director [facility] # [id number] 15 Next week. 16 SEE RESULT BELOW Name: DARIO MANCINI : [address]: Jigar Canales MD Acct: [id number] Unit: [id number] AGE: 73 Location: LAB Re03/10/19 SEX: M Status: REG REF SPEC: [id number] JAROD: 03/10/19 SUBM DR: Jigar Canales MD REQ: [id number] RECD: 03/10/19 STATUS: COMP _ SOURCE: URINE SPDESC: ORDERED: Urine Culture Procedure Result Reported Site Urine Culture Final 03/11/19- 1443 ML No Growth (<1,000 CFU/mL) * ML - Main Lab . END OF REPORT DEPARTMENT OF PATHOLOGY, [address] [place] [address] Jorge Luis Davis M.D. Director [facility] # [id number] 17 Next week. 18 Because ethnic data [...] in selective patients <6.0%. Please refer to [place] [employer] diabetic care guidelines for further information. 26 Critical Result CO2:14 Called to REMBERTO Bello at: 10:23:35 by:[id number] Read back by:REMBERTO Bello 27 Because ethnic [...] [address]: Jigar Canales MD Acct: [id number] Unit: [id number] AGE: 73 Location: LAB Re03/04/19 SEX: M Status: REG REF SPEC: [id number] JAROD: 03/04/19 [facility] DR: Jigar Canales MD REQ: [id number] RECD: 03/04/19 STATUS: [facility]AD[facility] MIC[facility] DR: Prabha Washington MD PC _ SOURCE: URINE SPDESC: ORDERED: Urine Culture Procedure Result Reported Site Urine Culture Final 03/05/19- 1548 ML Organism 1 NANCY ALBICANS [place] Count 25-50,000 (Moderate) CFU/ML * ML - Main Lab . END OF REPORT DEPARTMENT OF PATHOLOGY, [address] [place] [address] Jorge Luis Davis M.D. Director [facility] # [id number] 29 Today 30 Today 31 Because ethnic [...] dialysis) 33 Critical Result CO2:14 Called to [id number] at: 19:35:48 by:[id number] Read back by:[id number] 34 Because ethnic data is not always [...] [address]: Prabha Washington MD Acct: [id number] Unit: [id number] AGE: 73 Location: LAB Re12/16/18 SEX: M Status: REG REF SPEC: [id number] JAROD: 12/16/18-1226 [facility] DR: Jigar Canales MD REQ: [id number] RECD: 12/16/18-1302 STATUS: PARADISE DOWELL DR: Prabha Washington MD PC _ SOURCE: URINE SPDESC: ORDERED: Urine Culture Procedure Result Reported Site Urine Culture Final 12/18/18- 0842 ML Organism 1 CITROBACTER FREUNDII [place] Count 25-50,000 (Moderate) CFU/ML 1. CITROBACTER FREUNDII [...] . END OF REPORT DEPARTMENT OF PATHOLOGY, [address] [place] [address] Jorge Luis Davis M.D. Director [facility] # [id number] 42 Normal Range 180 to 914 Indeterminate Range 145 to 180 Deficient Range <145 Procedures Date Code Description Status 02/09/2019 61302 ECHO Transthorasic Realtime 2D W Doppler & Color Flow Completed Hosp 05/15/2010 702624894 Diabetic Foot Exam Completed 04/28/2010 292885779 Diabetic Foot Exam Completed 02/28/2010 153311647 Diabetic Retinal Eye Exam Completed 04/01/2008 862320752 Diabetic Retinal Eye Exam Completed 02/26/2008 645032878 Diabetic Foot Exam Completed 02/05/2008 050254144 Diabetic Foot Exam Completed 02/25/2007 551874955 Diabetic Retinal Eye Exam Completed Medical Devices Description No Information Available Encounters Type Date Location Provider Dx Diagnosis Office Visit 05/19/2019 [place] [facility] and Nelson Vazquez MD E11.65 Type 2 diabetes 8:00a [facility] mellitus with hyperglycemia E11.21 Type 2 diabetes mellitus with diabetic nephropathy I82.422 Acute embolism and thrombosis of left iliac vein 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 Office Visit 05/18/2019 8:00a [facility] Nephrology Jigar King N18.3 Chronic kidney MD Parker disease, stage 3 (moderate) E11.22 Type 2 diabetes mellitus w diabetic chronic kidney disease I82.402 Acute embolism and thombos unsp deep veins of l low extrem N17.9 Acute kidney failure, unspecified Office Visit 04/22/2019 8:00a [facility] Nephneda King E11.22 Type 2 diabetes MD Parker mellitus w diabetic chronic kidney disease N18.3 Chronic kidney disease, stage 3 (moderate) N17.9 Acute kidney failure, unspecified Office Visit 03/25/2019 8:00a [facility] Nephneda King N17.9 Acute kidney MD Parker failure, unspecified 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 N18.3 Chronic kidney disease, stage 3 (moderate) Office Visit 03/11/2019 8:00a [facility] Nephneda King N17.9 Acute kidney MD Parker failure, unspecified 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 N18.3 Chronic kidney disease, stage 3 (moderate) E11.40 Type 2 diabetes mellitus with diabetic neuropathy, unsp N39.0 Urinary tract infection, site not specified Office Visit 03/04/2019 8:00a [facility] Nephneda King N17.Trae Acute kidney MD Parker failure, unspecified 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 N18.3 Chronic kidney disease, stage 3 (moderate) E11.40 Type 2 diabetes mellitus with diabetic neuropathy, unsp N12 Tubulo-interstitial nephritis, not spcf as acute or chronic N39.0 Urinary tract infection, site not specified Office Visit 02/12/2019 [facility] Sue A40.1 Sepsis due to 9:53a Assoc,keri Sarah, PA-C streptococcus, Hospitalists group B R65.21 Severe sepsis with septic shock E11.40 Type 2 diabetes mellitus with diabetic neuropathy, unsp E11.22 Type 2 diabetes mellitus w diabetic chronic kidney disease N18.3 Chronic kidney disease, stage 3 (moderate) I25.10 Athscl heart disease of [place] coronary artery w/o ang pctrs [facility] Type 2 diabetes 9:51a Assoc,keri Santos MD mellitus with Hospitalists diabetic neuropathy, unsp 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 mellitus with Hospitalists diabetic neuropathy, unsp E11.22 Type 2 diabetes mellitus w diabetic chronic kidney disease N12 Tubulo-interstitial nephritis, not spcf as acute or chronic N18.3 Chronic kidney disease, stage 3 (moderate) Office Visit 02/09/2019 9:50a [facility] Iris A41.9 Sepsis, Assoc,keri Hopper, D.O. unspecified Hospitalists organism R65.21 Severe sepsis with septic shock N12 Tubulo-interstitial nephritis, not spcf as acute or chronic N13.30 Unspecified hydronephrosis E11.40 Type 2 diabetes mellitus with diabetic neuropathy, unsp Office Visit 02/08/2019 [facility] Milly A41.9 Sepsis, 9:50a Assoc,keri Michaels MD unspecified Hospitalists organism R65.21 Severe sepsis with septic shock N12 Tubulo-interstitial nephritis, not spcf as acute or chronic N13.30 Unspecified hydronephrosis E11.9 Type 2 diabetes mellitus without complications Office Visit 02/07/2019 [facility] Bethany Saravia, A41.9 Sepsis, 9:50a keri Maria M.D. 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21 Type 2 diabetes mellitus with diabetic Nelson Vazquez MD nephropathy 05/19/2019 I82.422 Acute embolism and thrombosis of left iliac Nelson Vazquez MD vein 05/19/2019 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 Nelson Vazquez MD hypoglycemic drugs 05/18/2019 N18.3 Chronic kidney disease, stage 3 (moderate) Jigar Canales MD 05/18/2019 E11.22 Type 2 diabetes mellitus with diabetic Jigar Canales MD chronic kidney disease 05/18/2019 I82.402 Acute embolism and thrombosis of Jigar Canales MD unspecified deep veins of left lower extremity 05/18/2019 N17.9 Acute kidney failure, unspecified Jigar Canales MD 04/22/2019 E11.22 Type 2 diabetes mellitus with diabetic Jigar Canales MD chronic kidney disease 04/22/2019 N18.3 Chronic kidney disease, stage 3 (moderate) Jigar Canales MD 04/22/2019 N17.9 Acute kidney failure, unspecified Jiagr Canales MD 03/25/2019 N17.9 Acute kidney failure, unspecified Jigar Canales MD 03/25/2019 I12.9 Hypertensive chronic kidney disease with Jigar Canales MD stage 1 through stage 4 chronic kidney disease, or unspecified chronic kidney disease 03/25/2019 E11.22 Type 2 diabetes mellitus with diabetic Jigar Canales MD chronic kidney disease 03/25/2019 N18.3 Chronic kidney disease, stage 3 (moderate) Jigar Canales MD 03/11/2019 N17.9 Acute kidney failure, unspecified Jigar Canales MD 03/11/2019 I12.9 Hypertensive chronic kidney disease with Jigar Canales MD stage 1 through stage 4 chronic kidney disease, or unspecified chronic kidney disease 03/11/2019 E11.22 Type 2 diabetes mellitus with linda Canales MD chronic kidney disease 03/11/2019 N18.3 Chronic kidney disease, stage 3 (moderate) Jigar Canales MD 03/11/2019 E11.40 Type 2 diabetes mellitus with linda Canales MD neuropathy, unspecified 03/11/2019 N39.0 Urinary tract infection, site not specified Jigar Canales MD 03/04/2019 N17.9 Acute kidney failure, unspecified Jigar Canales MD 03/04/2019 I12.9 Hypertensive chronic kidney disease with Jigar Canales MD stage 1 through stage 4 chronic kidney disease, or unspecified chronic kidney disease 03/04/2019 E11.22 Type 2 diabetes mellitus with linda Canales MD chronic kidney disease 03/04/2019 N18.3 Chronic kidney disease, stage 3 (moderate) Jigar Canales MD 03/04/2019 E11.40 Type 2 diabetes mellitus with diabetic Jigar Canales MD neuropathy, unspecified 03/04/2019 N12 Tubulo-interstitial nephritis, not Jigar Canales MD specified as acute or chronic 03/04/2019 N39.0 Urinary tract infection, site not specified Jigar Canales MD 02/12/2019 A40.1 Sepsis due to streptococcus, group B Sue Sarah PA-C 02/12/2019 R65.21 Severe sepsis with septic shock Suemeghan Sarah PA-C 02/12/2019 E11.40 Type 2 diabetes mellitus with diabetic Sue Sarah PA -C neuropathy, unspecified 02/12/2019 E11.22 Type 2 diabetes mellitus with diabetic Sue Sarah PA -C chronic kidney disease 02/12/2019 N18.3 Chronic kidney disease, stage 3 (moderate) Sue Sarah PA-C 02/12/2019 I25.10 Atherosclerotic heart disease of [place] Sue Sarah PA-C coronary artery without angina pectoris 02/11/2019 E11.40 Type 2 diabetes mellitus with diabetic Ada Santos MD neuropathy, unspecified 02/11/2019 E11.22 Type 2 diabetes mellitus with diabetic Ada Santos MD chronic kidney disease 02/11/2019 I25.10 Atherosclerotic heart disease of [place] Ada Santos MD coronary artery without angina pectoris 02/10/2019 E11.40 Type 2 diabetes mellitus with diabetic Iris Hopper D.O. neuropathy, unspecified 02/10/2019 E11.22 Type 2 diabetes mellitus with diabetic Idania Ignacio.O. chronic kidney disease 02/10/2019 N12 Tubulo-interstitial nephritis, not Iris Hopper D.O. specified as acute or chronic 02/10/2019 N18.3 Chronic kidney disease, stage 3 (moderate) Idania Ignacio.O. 02/09/2019 R78.81 Bacteremia Mak Boswell M.D. 02/09/2019 A41.9 Sepsis, unspecified organism Tiffani IgnacioO. 02/09/2019 R65.21 Severe sepsis with septic shock Tiffani IgnacioO. 02/09/2019 N12 Tubulo-interstitial nephritis, not Tiffani IgnacioOYuniel specified as acute or chronic 02/09/2019 N13.30 [...] 02/07/2019 N39.0 Urinary tract infection, site not specified Bethany Saravia M.D. 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 at [place] [facility]06/01/2019 - Jigar Canales MDE87.5 HyperkalemiaFollow up:2 weeks with labsN18.3 Chronic kidney disease, stage 3 (moderate)E11.22 Type 2 diabetes mellitus with diabetic chronic kidney ajvioshA30.9 Hypertensive chronic kidney disease with stage 1 through stage 4 chronic kidney disease, or unspecified chronic kidney disease Functional Status Description No Information Available Mental Status Description No Information Available Referrals Description No Information Available
--- OUTSIDE RECORDS SUMMARY | 2019-06-23 09:19 | XMS REPORT | Continuity of Care Document ---
:1945 External Reference #:[id number] Author Name Earlene Xiao M.D. 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 Onset: 07/13/2016 Body mass index 30+ - obesity Earlene Xiao M.D. Onset: 07/13/2016 Body mass index 30+ - obesity Raúl Novak M.D. Onset: 03/12/2016 Acute sinusitis Raúl Novak M.D. Onset: 03/12/2016 Allergic rhinitis Earlene Xiao M.D. Onset: 02/16/2015 Asthma Earlene Xiao M.D. Onset: 02/16/2015 Mild persistent asthma Earlene Xiao M.D. Onset: 02/16/2015 Fever Raúl Novak M.D. Onset: 07/27/2013 Cough Raúl Novak M.D. Onset: 07/27/2013 Social History Type Date Description Comments Sex Unknown ETOH Use occasional social Tobacco Use Start: Unknown End: Patient is a former smoker 6 yrs of grass marijuana Unknown Allergies, Adverse Reactions, Alerts Active Allergies Reaction Severity Comments Date Adhesives (Tape) blisters 07/03/2013 Latex Urticaria 08/02/2014 Medications Active Medications SIG Qnty Indications Ordering Date Provider Symbicort 2 puffs inhalation 10.200gm K21.9 Earlene Reeves 06/05/2019 80-4.5mcg/Act twice a day Martir Xiao Aerosol Symbicort Inhale Two Puffs 30.6units K21.9 Phyllis Priscilain 10/31/2018 80-4.5mcg/Act By Mouth Twice A RPA-C Aerosol Day Azelastine HCL instill 1 drop 6ml [facility] 12/20/2017 (Ophthalmic) into both eyes Martir Xiao 0.05% twice a day as Solution needed Symbicort 2 inhalations 1units Elisabeth 12/07/2016 am&pm LUCIA Villasenor 160-4.5mcg/Act Aerosol Montelukast Sodium 1 tab by mouth 30tabs J45.30 [facility] 07/13/2016 10mg every night at Martir Xiao Tablets bedtime Fluticasone 2 intranasal every 16gm J45.30 [facility] 07/13/2016 Propionate day Martir Xiao 50mcg/Act Suspension Proair HFA 2 puffs inhalation 8.500gm J45.30 [facility] 07/13/2016 108(90Base) every 4 hours as Martir Xiao mcg/Act Aerosol needed Eliquis twice a day Unknown 5mg Tablets Cranberry Extract once a day Unknown 200mg Capsules Tradjenta one tab in the Unknown 5mg Tablets morning Albuterol Sulfate as needed [facility] Martir Xiao (5mg/ML) 0.5% Nebulizer P57-Twmvpy one tablet daily Unknown 1mg Chewtabs Gabapentin one in the morning Unknown 300mg one at night Capsules Laclotion once a day on legs Unknown 12% Lotion Pravastatin Sodium once a day in the Unknown 40mg evening Tablets Nitrofurantoin as needed Unknown Monohydrate/Macrocrys tals Tablets Multi-Vitamins one talbet in the Unknown Tablets am Probiotic one tablet once a Unknown Capsules day Glipizide ER Unknown 2.5mg Tablets ER 24HR Aspir-81 one tablet daily Unknown 81mg Tablets DR Lisinopril one tablet once a Unknown 2.5mg day Tablets Metoprolol Succinate one tablet once a Unknown ER day 25mg Tablets ER 24HR Immunizations CPT Code Status Date Vaccine Lot # 23017 Given 01/13/2013 Influenza Vaccine 91599 Given Unknown Pneumococcal Vaccine 41116 Given Unknown Pneumococcal Vaccine 91297 Given Unknown Pneumococcal Vaccine 10062 Given Unknown Influenza Vaccine 70297 Given Unknown Influenza Vaccine 20426 Given Unknown Influenza Vaccine 04657 Given Unknown Influenza Vaccine Vital Signs Date Vital Result Comment 06/05/2019 8:33am Height 70.5 inches 5'10.50" pt states Weight 221.00 lb Weight 100.246 kg Respiratory Rate 18 /min Heart Rate 75 /min O2 % BldC Oximetry 98 % BP Systolic 131 mmHg BP Diastolic 65 mmHg Asthma Control Test 23 Fractional Exhaled Nitric Oxide 33 BMI (Body Mass Index) 31.3 kg/m2 10/31/2018 4:23pm Height 70.5 inches 5'10.50" pt states Weight 224.00 lb Weight 101.606 kg Respiratory Rate 16 /min Heart Rate 67 /min O2 % BldC Oximetry 95 % BP Systolic 111 mmHg BP Diastolic 60 mmHg Asthma Control Test 23 Fractional Exhaled Nitric Oxide 40 BMI (Body Mass Index) 31.7 kg/m2 Results Description No Information Available Procedures Date Code Description Status 06/05/2019 19677 Nitric Oxide Gas Determination Completed 06/05/2019 03907 Pre PFT Completed Medical Devices Description No Information Available Encounters Type Date Location Provider Dx Diagnosis Office Visit 06/05/2019 [place] Earlene Xiao K21.9 Gastro-esophageal 8:15a M.DYuniel reflux disease without esophagitis J30.1 Allergic rhinitis due to pollen J30.89 Other allergic rhinitis J45.40 Moderate persistent asthma, uncomplicated Assessments Date Code Description Provider 06/05/2019 K21.9 Gastro-esophageal reflux disease without Earlene Xiao M.D. esophagitis 06/05/2019 J30.1 Allergic rhinitis due to pollen Earlene Xiao M.D. 06/05/2019 J30.89 Other allergic rhinitis Earlene Xiao M.D. 06/05/2019 J45.40 Moderate persistent asthma, uncomplicated Earlene Xiao M.D. Plan of Treatment Future Appointment(s):11/27/2019 4:20 pm - Earlene Xiao M.D. at [facility] - Earlene Xiao M.D.K21.9 Gastro-esophageal reflux disease without nzupoxbxtcdT57.1 Allergic rhinitis due to lxvnvhT31.89 Other allergic wxgsngiiX78.40 Moderate persistent asthma, uncomplicatedNew Medication: Symbicort 80-4.5 mcg/ActFollow up:6 months, CHECK-UP/FOLLOW UP VISIT: Continued management of patient's medical care. Steven, prePFTRecommendations:Refrain from wearing perfumes/scented colognes while visiting our office. recommend Symbicort 80/4.5-2 puffs once daily; rinse mouth after use; okay to use 2 puffs twice daily with URIs use Albuterol2 puffs every 4 hours as needed for cough, shortness of breath or chest tightness use Flonase 2 sprays to each nostril once daily - use daily when used okay to use Azelastine 1 drop to each eye once daily as needed Functional Status Description No Information Available Mental Status Description No Information Available Referrals Description No Information Available
--- OUTSIDE RECORDS SUMMARY | 2019-06-23 09:19 | XMS REPORT | Continuity of Care Document ---
:1945 External Reference #:[id number] Author Name Joanne Campos DNP, RN, TECHNOLOGY ADOPTION MANAGER-BC (transmitted by agent of provider Priscilla Zuñiga) Address [address], [address] [place] [id number] Care Team Providers Name Role Phone Chuy Escalera MD - Endocrinology, Care Team Information Exploration Driller Diabetes & Metabolism Prabha Washington MD - Internal Care Team Information Exploration Driller [phone] Medicine Marco Carcamo MD - Hospitalist Care Team Information Exploration Driller [phone] Problems Active Problems Provider Date Type 2 diabetes mellitus Kiran Davis, 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/2007 Martir,VEENA Neuralgia Neuritis & Radiculitis Kiran Davis, 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/2007 Unspecified Martir,FACP Lyme disease Kiran Davis, 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/2007 Martir,GELYP Pure hypercholesterolemia Kiran Davis, 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/2007 Martir,FACP 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, Onset: 04/16/2013 [facility] Benign essential hypertension Wojciech Jones M.D., [facility], Onset: 04/16/2013 [facility] Chronic ischemic heart disease Wojciech Jones M.D., [facility], Onset: 04/16/2013 [facility] Essential hypertension Wojciech Jones M.D., [facility], Onset: 08/01/2015 [facility] Atherosclerotic heart disease of [place] Wojciech Jones M.D., [facility], 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 [facility] Obesity Wojciech Jones M.D., [facility], Onset: 06/18/2016 [facility] Localized, primary osteoarthritis Sofya Borrego M.D. Onset: 11/03/2018 Coronary atherosclerosis Noble Chen M.D. Onset: 11/11/2018 Social History Type Date Description Comments Sex Unknown Tobacco Use Start: Unknown Never Smoked Cigarettes ETOH Use consumes 1-2 glasses of wine per week Recreational Drug Use Never Used Drugs Tobacco Use Start: Unknown Patient has never smoked Smoking Status Reviewed: 06/02/19 Patient has never smoked Exercise Type/Frequency Exercises [...] Ferrousul 1 tab by mouth 3 90tabs [facility], 03/25/2019 325(65Fe) times a week MD mg Tablets Sodium Bicarbonate 2 tab by mouth 360tabs [facility], 03/11/2019 twice times MD 650mg Tablets daily Gabapentin By mouth twice [facility] Fernando Canales, 03/11/2019 300mg daily MD Capsules Lisinopril 1 [...] FSCAI pain, if no relief call 911 EliINXPO Starter Pack 1 by mouth twice a [...] Regadenoson, 0.1 MG Juan C Grey, DO [facility] 11/27/2018 Injection Technetium TC 99M Juan C Grey, DO [facility] 11/27/2018 Tetrofosmin, Per Unit Dose Up To 40 Millicuries Injection Technetium TC 99M Juan C Grey, DO [facility] 11/27/2018 Tetrofosmin, Per Unit Dose Up To 40 Millicuries Injection Depomedrol 40MG Sofya Borrego M.D. 11/03/2018 Injection Celestone 3 mg and 3mg Mela Catherine-Young, 05/05/2014 Injection M.D. Celestone 3 mg and 3mg Mela Catherine-Young, 04/06/2014 Injection M.D. Immunizations CPT Code Status Date Vaccine Lot # [id number] Given 02/23/2010 Influenza Virus 3Yrs & Over 20745 Given 02/15/2009 Influenza Virus Vaccine, Pandemic Formulation 61859 Given 02/15/2009 Influenza Virus Vaccine, Pandemic Formulation [id number] 62157 Given 02/15/2009 Administration Swine Flu Shot 45229 Given 03/18/2007 Influenza Virus 3Yrs & Over 69082 Given 03/18/2007 Influenza Virus 3Yrs & Over [id number] 64103 Given 02/21/2000 Influenza Virus 3Yrs & Over Vital Signs Date Vital Result Comment 06/02/2019 8:27am Height 71 inches 5'11" Weight 215.00 lb Heart Rate 75 /min BP Systolic 128 mmHg BP Diastolic 62 mmHg O2 % BldC Oximetry 99 % BMI (Body Mass Index) 30.0 kg/m2 06/01/2019 8:11am Height 71 inches 5'11" Weight 221.00 lb Heart Rate 75 /min BP Systolic Sitting 128 mmHg BP Diastolic Sitting 70 mmHg O2 % BldC Oximetry 75 % BMI (Body Mass Index) 30.8 kg/m2 Results Test Acquired Date Facility Test Result H/L Range Note Laboratory test 05/30/2019 [facility] Albumin 4.8 g/dL Normal 3.2-5.[address] [place] [address] [phone] Neph Routine 05/30/2019 [facility] Total 34 mg/dL [address] [place] [address] Random Urine [phone] Creatinine Random Urine 64.28 mg/dL CBC Auto 05/30/2019 [facility] White Blood 8.4 10^3/uL Normal 3.5-10.[address] [place] [address] [phone] Red Blood Count 4.23 10^6/uL Normal 4.18-5.48 [...] Blood Cells % 0.0 Basic Metabolic 05/30/2019 [facility] Sodium 141 mmol/L Normal 135-[address] [place] [address] [phone] Chloride 111 mmol/L Normal 101-111 Co2 Carbon Dioxide 26 mmol/L Normal 22-32 Calcium 9.6 mg/dL Normal 8.6-10.3 Potassium 5.4 mmol/L High 3.5-5.0 Anion Gap 4 mmol/L Normal 2-11 Glucose 118 mg/dL High 70-100 Blood Urea Nitrogen 39 mg/dL High 6-24 Creatinine 2.03 mg/dL High 0.67-1.17 BUN/Creatinine Ratio 19.2 Normal 8-20 Egfr Non- 32.4 >60 Egfr 39.3 >60 1 Urinalysis Profile 05/30/2019 [facility] [place] [address] [phone] Urine Appearance Cloudy Urine Specific [place] 1.011 Normal 1.010-1.030 Urine pH 7.0 Normal [...] Present Abnormal Absent Urine Culture And 05/30/2019 [facility] Urine Culture SEE RESULT [address] [place] [address] [phone] Laboratory test 05/30/2019 [facility] Hemoglobin A1c 7.1 % High 4.0- [address] (Glyco HGB) 5.6 [place], [place] [address] [phone] Neph Routine 05/16/2019 [facility] Total Protein 29 mg/dL [address] [place] [address] [phone] Creatinine Random Urine 58.65 mg/dL CBC Auto 05/16/2019 [facility] White Blood 7.2 10^3/uL Normal 3.5-10.[address] [place] [address] [phone] Red Blood Count 3.80 10^6/uL Low 4.18-5.48 [...] Blood Cells % 0.0 Basic Metabolic 05/16/2019 [facility] Sodium 139 mmol/L Normal 135-[address] [place] [address] [phone] Potassium 4.8 mmol/L Normal 3.5-5.0 Chloride 108 mmol/L Normal 101-111 Co2 Carbon Dioxide 24 mmol/L Normal 22-32 Anion Gap 7 mmol/L Normal 2-11 Glucose 131 mg/dL High 70-100 Blood Urea Nitrogen 30 mg/dL High 6-24 Creatinine 1.61 mg/dL High 0.67-1.17 BUN/Creatinine Ratio 18.6 Normal 8-20 Calcium 9.1 mg/dL Normal 8.6-10.3 Egfr Non- 42.4 >60 Egfr 51.3 >60 5 Urinalysis Profile 05/16/2019 [facility] Urine Color Yellow [address] [place] [address] [phone] Urine Appearance Cloudy Urine Specific [place] 1.010 Normal 1.010-1.030 Urine pH 7.0 Normal [...] Present Abnormal Absent Urine Culture And 05/16/2019 [facility] Urine Culture SEE RESULT [address] [place] [address] [phone] Urine Culture And 04/21/2019 [facility] Urine Culture SEE RESULT [address] [place] [address] [phone] Laboratory test 04/21/2019 [facility] Ferritin 60.5 ng/mL Normal 24-[address] [place] [address] [phone] Iron & Iron 04/21/2019 [facility] Iron 38 g/dL Low 50-[address] [place] [address] [phone] Unsaturated Iron Binding < 394 g/dL Total Iron Binding Capacity 409 g/dL Normal 250-450 Transferrin 292 mg/dL Normal 203-362 % Iron Saturation 9 % Low 15-55 Laboratory test 04/21/2019 [facility] Albumin 4.5 g/dL Normal 3.2-5.[address] [place] [address] [phone] Urinalysis 04/21/2019 [facility] Urine Color Yellow Profile [address] [place] [address] [phone] Urine Appearance Cloudy Urine Specific [place] 1.010 Normal 1.010-1.030 Urine pH 6.0 Normal [...] Urine Bacteria Absent Absent Basic Metabolic 04/21/2019 [facility] Sodium 140 mmol/L Normal 135-[address] [place] [address] [phone] Potassium 4.7 mmol/L Normal 3.5-5.0 Chloride 111 mmol/L Normal 101-111 Co2 Carbon Dioxide 22 mmol/L Normal 22-32 Anion Gap 7 mmol/L Normal 2-11 Glucose 104 mg/dL High 70-100 Blood Urea Nitrogen 43 mg/dL High 6-24 Creatinine 1.81 mg/dL High 0.67-1.17 BUN/Creatinine Ratio 23.8 High 8-20 Calcium 9.0 mg/dL Normal 8.6-10.3 Egfr Non- 37.0 >60 Egfr 44.8 >60 9 CBC Auto 04/21/2019 [facility] White Blood 9.0 10^3/uL Normal 3.5-10.[address] [place] [address] [phone] Red Blood Count 3.49 10^6/uL Low 4.18-5.48 [...] Blood Cells % 0.0 Neph Routine 04/21/2019 [facility] Total Protein Random 33 mg/ dL [address] [place] [address] [phone] Creatinine Random Urine 50.15 mg/dL 11 Neph Routine 03/24/2019 [facility] Total Protein Random 27 mg/ dL [address] [place] [address] [phone] Creatinine Random Urine 60.28 mg/dL CBC Auto 03/24/2019 [facility] White Blood 9.3 10^3/uL Normal 3.5-10.[address] [place] [address] [phone] Red Blood Count 3.00 10^6/uL Low 4.18-5.48 [...] Blood Cells % 0.1 Basic Metabolic 03/24/2019 [facility] Sodium 139 mmol/L Normal 135-145 Panel [facility] [place] [address] [phone] Potassium 5.0 mmol/L Normal 3.5-5.0 Chloride 111 mmol/L Normal 101-111 Co2 Carbon Dioxide 22 mmol/L Normal 22-32 Anion Gap 6 mmol/L Normal 2-11 Glucose 103 mg/dL High 70-100 Blood Urea Nitrogen 29 mg/dL High 6-24 Creatinine 1.88 mg/dL High 0.67-1.17 BUN/Creatinine Ratio 15.4 Normal 8-20 Calcium 8.6 mg/dL Normal 8.6-10.3 Egfr Non- 35.5 >60 Egfr 42.9 >60 12 Urinalysis Profile 03/24/2019 [facility] Urine Color Yellow [address] [place] [address] [phone] Urine Appearance Cloudy Urine Specific [place] 1.010 Normal 1.010-1.030 Urine pH 6.0 Normal [...] Urine Bacteria Absent Absent Laboratory test 03/24/2019 [facility] Albumin 4.0 g/dL Normal 3.2-5.[address] [place] [address] [phone] Iron & Iron 03/24/2019 [facility] Iron 57 g/dL Normal 50- 212 Binding Capacity [address] [place] [address] [phone] Unsaturated Iron Binding < 342 g/dL Total Iron Binding Capacity 357 g/dL Normal 250-450 Transferrin 255 mg/dL Normal 203-362 % Iron Saturation 16 % Normal 15-55 Laboratory test 03/24/2019 [facility] Ferritin 80.8 Normal 24- [address] ng/[place] [address] [phone] Urine Culture And 03/24/2019 [facility] Urine SEE [address] [place] [address] BELOW [phone] Urine Culture And 03/10/2019 [facility] Urine SEE 15, Sensitivities [address] Culture RESULT 16 [place] [address] BELOW [phone] Laboratory test 03/10/2019 [facility] Albumin 4.2 g/dL Normal 3.2-5.2 [address] [place] [address] [phone] Basic Metabolic 03/10/2019 [facility] Sodium 139 Normal 135- [address] mmol/[place] [address] [phone] Potassium 4.3 mmol/L Normal 3.5-5.0 Chloride 113 mmol/L High 101-111 Co2 Carbon Dioxide 16 mmol/L Low 22-32 Anion Gap 10 mmol/L Normal 2-11 Glucose 128 mg/dL High 70-100 Blood Urea Nitrogen 50 mg/dL High 6-24 Creatinine 2.47 mg/dL High 0.67-1.17 BUN/Creatinine Ratio 20.2 High 8-20 Calcium 8.9 mg/dL Normal 8.6-10.3 Egfr Non- 25.9 >60 Egfr 31.3 >60 18 Laboratory test 03/10/2019 [facility] Creatinine Random 47.78 mg /dL [address] [place] [address] [phone] Total Protein Random Urine 48 mg/dL 20 CBC Auto 03/10/2019 [facility] White Blood 10.9 10^3/uL High 3.5-10.[address] [place] [address] [phone] Red Blood Count 3.10 10^6/uL Low 4.18-5.48 [...] Blood Cells % 0.0 Urinalysis Profile 03/10/2019 [facility] Urine Color Yellow [address] [place] [address] [phone] Urine Appearance Clear Urine Specific [place] 1.010 Normal 1.010-1.030 Urine pH 6.0 Normal [...] Urine Bacteria Absent Absent Laboratory test 03/04/2019 [facility] Ferritin 122.7 Normal 24 -336 22, [address] ng/[place] [address] [phone] Iron & Iron 03/04/2019 [facility] Iron 56 g/dL Normal 50- [address] [place] [address] [phone] Unsaturated Iron Binding < 332 g/dL Total Iron Binding Capacity 347 g/dL Normal 250-450 Transferrin 248 mg/dL Normal 203-362 % Iron Saturation 16 % Normal 15-55 Laboratory test 03/04/2019 [facility] Albumin 3.9 g/dL Normal 3.2-5.[address] [place] [address] [phone] Hemoglobin A1c (Glyco HGB) 7.5 % High 4.0-5.6 25 Basic Metabolic 03/04/2019 [facility] Sodium 140 mmol/L Normal 135-[address] [place] [address] [phone] Potassium 5.0 mmol/L Normal 3.5-5.0 Chloride 116 mmol/L High 101-111 Co2 Carbon Dioxide 14 mmol/L Critical low 22-32 26 Anion Gap 10 mmol/L Normal 2-11 Glucose 118 mg/dL High 70-100 Blood Urea Nitrogen 73 mg/dL High 6-24 Creatinine 3.28 mg/dL High 0.67-1.17 BUN/Creatinine Ratio 22.3 High 8-20 Calcium 8.8 mg/dL Normal 8.6-10.3 Egfr Non- 18.6 >60 Egfr 22.6 >60 27 CBC Auto 03/04/2019 [facility] White Blood 10.8 10^3/uL Normal 3.5-10.[address] [place] [address] [phone] Red Blood Count 3.37 10^6/uL Low 4.18-5.48 [...] Cells % 0.0 Urine Culture And 03/04/2019 [facility] Urine Culture SEE RESULT [address] [place] [address] [phone] Urinalysis Profile 03/04/2019 [facility] Urine Color Yellow [address] [place] [address] [phone] Urine Appearance Cloudy Urine Specific [place] 1.011 Normal 1.010-1.030 Urine pH 6.0 Normal 5-9 Urine Urobilinogen Negative Negative Urine Ketones Negative Negative Urine Protein Negative Negative Urine Leukocytes 3+ Abnormal Negative Urine Blood 2+ Abnormal Negative Urine Nitrite Negative Negative Urine Bilirubin Negative Negative Urine Glucose Negative Negative Urine White Blood Cell 3+(>20/hpf) Abnormal Absent Urine Red Blood Cell 3+(>10/hpf) Abnormal Absent Urine Bacteria Absent Absent Neph Routine 03/04/2019 [facility] Total Protein Random 69 mg/ dL [address] [place] [address] [phone] Creatinine Random Urine 72.89 mg/dL 30 Comp Metabolic 03/04/2019 [facility] Sodium 142 mmol/L Normal 135-[address] [place] [address] [phone] Potassium 4.6 mmol/L Normal 3.5-5.0 Co2 Carbon [...] 7 mmol/L Normal 2-11 CBC Auto 03/04/2019 [facility] White Blood 9.5 10^3/uL Normal 3.5-10.[address] [place] [address] [phone] Red Blood Count 3.07 10^6/uL Low 4.18-5.48 [...] Blood Cells % 0.0 Urinalysis Profile 03/04/2019 [facility] Urine Color Yellow [address] [place] [address] [phone] Urine Appearance Clear Urine Specific [place] 1.010 Normal 1.010-1.030 Urine pH 7.0 Normal 5-9 Urine Urobilinogen Negative Negative Urine Ketones Negative Negative Urine Protein Negative Negative Urine Leukocytes Trace Abnormal Negative Urine Blood Negative Negative Urine Nitrite Negative Negative Urine Bilirubin Negative Negative Urine Glucose Negative Negative Urine White Blood Cell 1+(6-10/hpf) Abnormal Absent Urine Red Blood Cell Absent Absent Urine Bacteria Absent Absent Basic Metabolic 03/04/2019 [facility] Sodium 142 mmol/L Normal 135-145 Panel [address] [place] [address] [phone] Potassium 4.5 mmol/L Normal 3.5-5.0 Glucose 125 mg/dL High 70-100 Blood Urea Nitrogen 72 mg/dL High 6-24 Creatinine 3.24 mg/dL High 0.67-1.17 BUN/Creatinine Ratio 22.2 High 8-20 Calcium 8.5 mg/dL Low 8.6-10.3 Egfr Non- 18.9 >60 Egfr 22.9 >60 32 Chloride 118 mmol/L High 101-111 Co2 Carbon Dioxide 14 mmol/L Critical low 22-32 33 Anion Gap 10 mmol/L Normal 2-11 Xray 12/25/2018 [facility] SP Lumbarsacral 4+ VWS <pending> [address] [place] [address] [phone] MRI Lumbar Spine W/O <pending> Comp Metabolic 12/16/2018 [facility] Sodium 141 mmol/L Normal 135-145 Panel [address] [place] [address] [phone] Potassium 4.9 mmol/L Normal 3.5-5.0 Chloride 111 [...] Egfr 46.9 >60 34 Lipid Profile 12/16/2018 [facility] Triglycerides 141 mg/dL 35 (Trig/Chol/HDL) [address] [place] [address] [phone] Cholesterol 144 mg/dL 36 HDL Cholesterol 38.3 mg/dL 37 LDL Cholesterol 78 mg/dL 38 Urine Microalbumin 12/16/2018 [facility] Ur Microalbumin 109.3 mg/L Random [address] (mg/L) [place] [address] [phone] Urine Creatinine 83.70 mg/dL Urine Microalbumin/Creatinine 130.5 High <31 Basic Metabolic 12/16/2018 [facility] Sodium 141 mmol/L Normal 135-[address] [place] [address] [phone] Potassium 4.9 mmol/L Normal 3.5-5.0 Chloride 111 mmol/L Normal 101-111 Co2 Carbon Dioxide 23 mmol/L Normal 22-32 Anion Gap 7 mmol/L Normal 2-11 Glucose 134 mg/dL High 70-100 Blood Urea Nitrogen 36 mg/dL High 6-24 Creatinine 1.74 mg/dL High 0.67-1.17 BUN/Creatinine Ratio 20.7 High 8-20 Calcium 9.6 mg/dL Normal 8.6-10.3 Egfr Non- 38.8 >60 Egfr 46.9 >60 39 CBC Auto 12/16/2018 [facility] White Blood 7.7 10^3/uL Normal 3.5-10.[address] [place] [address] [phone] Red Blood Count 3.90 10^6/uL Low 4.18-5.48 [...] Blood Cells % 0.0 Laboratory test 12/16/2018 [facility] Total Protein 57 mg/dL finding [address] Random Urine [place], [place] [address] [phone] Urinalysis Profile 12/16/2018 [facility] Urine Color Yellow [address] [place] [address] [phone] Urine Appearance Cloudy Urine Specific [place] 1.011 Normal 1.010-1.030 Urine pH 6.0 Normal [...] Bacteria 1+ Abnormal Absent Laboratory test 12/16/2018 [facility] Creatinine 83.97 mg/dL finding [address] Random Urine [place], [place] [address] [phone] Urine Culture And 12/16/2018 [facility] Urine Culture SEE RESULT [address] [place] [place], [place] [address] [phone] Laboratory test 12/16/2018 [facility] Thyroxine 6.06 g/dL Low 6.[address]. [place] [address] 23 [phone] TSH (Thyroid Stim Horm) 1.41 mcIU/mL Normal [...] [address]: Jigar Canales MD Acct: [id number] Unit: [id number] AGE: 73 Location: LAB Re05/30/19 SEX: M Status: REG REF SPEC: [id number] JAROD: 05/30/19-1310 [facility] DR: Jigar Canales MD REQ: [id number] RECD: 05/30/19-132 STATUS: [facility] DR: Marco Vazquez MD _ SOURCE: URINE SPDESC: ORDERED: Urine Culture Procedure Result Reported Site Urine Culture Final 06/01/19- 08 ML Organism 1 ENTEROCOCCUS FAECALIS [place] Count 75-100,000 (Many) CFU/ML 1. ENTEROCOCCUS FAECALIS M.I.C. RX --------- ------ Ampicillin <=2 S Penicillin 4 S Ciprofloxacin <=0.5 S Gentamicin High Level S Levofloxacin 1 S Nitrofurantoin <=16 S * Quinupristin/Dalfopristin 8 R * Streptomycin High Level S Tetracycline >=16 R Tigecycline <=0.12 S Vancomycin 1 S Imipenem-Deduced S * Ampicillin/Sulbactam-Deduced S CONTINUED ON NEXT PAGE DEPARTMENT OF PATHOLOGY, [address] [place] [address] Jorge Luis Davis M.D. Director [facility] # [id number] Specimen: [id number] Collected: 05/30/19-1310 Received: 05/30/19132 (Continued) Procedure Result Reported Site Urine Culture Final (continued) * These antibiotics are not available in the [facility] Formulary Contact the Microbiology Department for any additional antibiotic reporting. * ML - Main Lab . END OF REPORT DEPARTMENT OF PATHOLOGY, [address] [place] [address] Jorge Luis Davis M.D. Director [facility] # [id number] 4 Therapeutic target for the treatment of diabetes mellitus patients is <7% HBA1C, and in selective patients <6.0%. Please refer to [place] [employer] diabetic care guidelines for further [...] (or dialysis) 6 SEE RESULT BELOW Name: MANCINIDARIO : [address]: Jigar Canales MD Acct: [id number] Unit: [id number] AGE: 73 Location: LAB Re05/16/19 SEX: M Status: REG REF SPEC: [id number] JAROD: 05/16/19 [facility] [address]: Jigar Canales MD REQ: [id number] RECD: 05/16/19 STATUS: COMP _ SOURCE: URINE SPDESC: ORDERED: Urine Culture Procedure Result Reported Site Urine Culture Final 05/18/19- 42 ML Organism 1 ENTEROCOCCUS FAECALIS [place] Count >100,000 (Many) CFU/ML Organism 2 NORMAL CADENCE [place] Count 10-25,000 (Moderate) CFU/ML 1. ENTEROCOCCUS FAECALIS M.I.C. RX --------- ------ Ampicillin <=2 S Penicillin 4 S Ciprofloxacin <=0.5 S Gentamicin High Level S Levofloxacin 1 S Nitrofurantoin <=16 S * Quinupristin/Dalfopristin 8 R * Streptomycin High Level S Tetracycline >=16 R Tigecycline <=0.12 S Vancomycin 1 S Imipenem-Deduced S * Ampicillin/Sulbactam-Deduced S CONTINUED ON NEXT PAGE DEPARTMENT OF PATHOLOGY, [address] [place] [address] Jorge Luis Davis M.D. Director [facility] # [id number] Specimen: [id number] Collected: 05/16/19 Received: 05/16/19 (Continued) Procedure Result Reported Site Urine Culture Final (continued) * These antibiotics are not available in the [facility] Formulary Contact the Microbiology Department for any additional antibiotic reporting. * ML - Main Lab . END OF REPORT DEPARTMENT OF PATHOLOGY, [address] [place] [address] Jorge Luis Davis M.D. Director [facility] # [id number] 7 SEE RESULT BELOW Name: DARIO MANCINI : [address]: Jigar Canales MD Acct: [id number] Unit: [id number] AGE: 73 Location: LAB Re04/21/19 SEX: M Status: REG REF SPEC: [id number] JAROD: 04/21/[address]: Jigar Canales MD REQ: [id number] RECD: 04/21/19 STATUS: COMP _ SOURCE: URINE SPDESC: ORDERED: Urine Culture Procedure Result Reported Site Urine Culture Final 04/22/19- 1440 ML No growth of clinically significant organisms * ML - Main Lab . END OF REPORT DEPARTMENT OF PATHOLOGY, [address] [place] [address] Jorge Luis Davis M.D. Director [facility] # [id number] *Ascorbic acid is present which may [...] of blood. 14 SEE RESULT BELOW Name: MANCINIDARIO : [address]: Jigar Canales MD Acct: [id number] Unit: [id number] AGE: 73 Location: LAB Re03/24/19 SEX: M Status: REG REF SPEC: [id number] JAROD: 03/24/[address]: Jigar Canaels MD REQ: [id number] RECD: 03/24/19 STATUS: COMP _ SOURCE: URINE SPDESC: ORDERED: Urine Culture Procedure Result Reported Site Urine Culture Final 03/25/19- 1459 ML No Growth (<1,000 CFU/mL) * ML - Main Lab . END OF REPORT DEPARTMENT OF PATHOLOGY, [address] [place] [address] Jorge Luis Davis M.D. Director [facility] # [id number] 15 Next week. 16 SEE RESULT BELOW Name: DARIO MANCINI : [address]: Jigar Canales MD Acct: [id number] Unit: [id number] AGE: 73 Location: LAB Re03/10/19 SEX: M Status: REG REF SPEC: [id number] JAROD: 03/10/[address]: Jigar Canales MD REQ: [id number] RECD: 03/10/19 STATUS: COMP _ SOURCE: URINE SPDESC: ORDERED: Urine Culture Procedure Result Reported Site Urine Culture Final 03/11/19- 1443 ML No Growth (<1,000 CFU/mL) * ML - Main Lab . END OF REPORT DEPARTMENT OF PATHOLOGY, [address] [place] [address] Jorge Luis Davis M.D. Director [facility] # [id number] 17 Next week. 18 Because ethnic data [...] in selective patients <6.0%. Please refer to [employer] diabetic care guidelines for further information. 26 Critical Result CO2:14 Called to REMBERTO Bello at: 10:23:35 by:[id number] Read back by:REMBERTO Bello 27 Because ethnic [...] [address]: Jigar Canales MD Acct: [id number] Unit: [id number] AGE: 73 Location: LAB Re03/04/19 SEX: M Status: REG REF SPEC: [id number] JAROD: 03/04/19 [facility] [address]: Jigar Canales MD REQ: [id number] RECD: 03/04/19 STATUS: [facility] DR: Prabha Washington MD PC _ SOURCE: URINE SPDESC: ORDERED: Urine Culture Procedure Result Reported Site Urine Culture Final 03/05/19- 1548 ML Organism 1 NANCY ALBICANS [place] Count 25-50,000 (Moderate) CFU/ML * ML - Main Lab . END OF REPORT DEPARTMENT OF PATHOLOGY, [address] [place] [address] Jorge Luis Davis M.D. Director [facility] # [id number] 29 Today 30 Today 31 Because ethnic [...] dialysis) 33 Critical Result CO2:14 Called to [id number] at: 19:35:48 by:[id number] Read back by:[id number] 34 Because ethnic data is not always [...] [address]: Prabha Washington MD Acct: [id number] Unit: [id number] AGE: 73 Location: LAB Re12/16/18 SEX: M Status: REG REF SPEC: [id number] JAROD: 12/16/18-12[address] [facility] [address]: Jigar Canales MD REQ: [id number] RECD: 12/16/18-1302 STATUS: [facility] DR: Prabha Washington MD PC _ SOURCE: URINE SPDESC: ORDERED: Urine Culture Procedure Result Reported Site Urine Culture Final 12/18/18- 0842 ML Organism 1 CITROBACTER FREUNDII [place] Count 25-50,000 (Moderate) CFU/ML 1. CITROBA[employer] FREUNDII [...] . END OF REPORT DEPARTMENT OF PATHOLOGY, [address] [place] [address] Jorge Luis Davis M.D. Director [facility] # [id number] 42 Normal Range 180 to 914 Indeterminate Range 145 to 180 Deficient Range <145 Procedures Date Code Description Status 02/09/2019 92602 ECHO Transthorasic Realtime 2D W Doppler & Color Flow Completed Hosp 05/15/2010 358836610 Diabetic Foot Exam Completed 04/28/2010 252898714 Diabetic Foot Exam Completed 02/28/2010 825327435 Diabetic Retinal Eye Exam Completed 04/01/2008 582425049 Diabetic Retinal Eye Exam Completed 02/26/2008 853467039 Diabetic Foot Exam Completed 02/05/2008 861752051 Diabetic Foot Exam Completed 02/25/2007 767055615 Diabetic Retinal Eye Exam Completed Medical Devices Description No Information Available Encounters Type Date Location Provider Dx Diagnosis Office Visit 05/19/2019 [place] Nelson Vazquez MD E11.65 Type 2 diabetes 8:00a [facility] mellitus with hyperglycemia E11.21 Type 2 diabetes mellitus with diabetic nephropathy I82.422 Acute embolism and thrombosis of left iliac vein Z79.84 salvage determiner (current) use of oral hypoglycemic drugs Office Visit 05/18/2019 8:00a [facility] Nephrology Jigar King N18.3 Chronic kidney MD Parker disease, stage 3 (moderate) E11.22 Type 2 diabetes mellitus w diabetic chronic kidney disease I82.402 Acute embolism and thombos unsp deep veins of l low extrem N17.9 Acute kidney failure, unspecified Office Visit 04/22/2019 8:00a [facility] Nephneda King E11.22 Type 2 diabetes MD Parker mellitus w diabetic chronic kidney disease N18.3 Chronic kidney disease, stage 3 (moderate) N17.9 Acute kidney failure, unspecified Office Visit 03/25/2019 8:00a [facility] Nephrology Jigar King N17.9 Acute kidney MD Parker failure, unspecified 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 N18.3 Chronic kidney disease, stage 3 (moderate) Office Visit 03/11/2019 8:00a [facility] Nephneda King N17.9 Acute kidney MD Parker failure, unspecified 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 N18.3 Chronic kidney disease, stage 3 (moderate) E11.40 Type 2 diabetes mellitus with diabetic neuropathy, unsp N39.0 Urinary tract infection, site not specified Office Visit 03/04/2019 8:00a [facility] Nephrology Jigar King N17.9 Acute kidney [...] infection, site not specified Office Visit 02/12/2019 [facility] Sue A40.1 Sepsis due to 9:53a Assoc,pc Tyrel, KATIE-C streptococcus, Hospitalists group B R65.21 Severe sepsis with septic shock E11.40 Type 2 diabetes mellitus with diabetic neuropathy, unsp E11.22 Type 2 diabetes mellitus w diabetic chronic kidney disease N18.3 Chronic kidney disease, stage 3 (moderate) I25.10 [facility] heart disease [place] coronary artery w/o ang pctrs [facility] 2 diabetes 9:51a Assoc,keri Santos MD mellitus with Hospitalists diabetic neuropathy, unsp 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 mellitus with Hospitalists diabetic neuropathy, unsp E11.22 Type 2 diabetes mellitus w diabetic chronic kidney disease N12 Tubulo-interstitial nephritis, not spcf as acute or chronic N18.3 Chronic kidney disease, stage 3 (moderate) Office Visit 02/09/2019 9:50a [facility] Iris A41.9 Sepsis, Assoc,keri Hopper D.O. unspecified Hospitalists organism R65.21 Severe sepsis with septic shock N12 Tubulo-interstitial nephritis, not spcf as acute or chronic N13.30 Unspecified hydronephrosis E11.40 Type 2 diabetes mellitus with diabetic neuropathy, unsp Office Visit 02/08/2019 [facility] Milly A41.9 Sepsis, 9:50a Assockeri MD unspecified Hospitalists organism R65.21 Severe sepsis with septic shock N12 Tubulo-interstitial nephritis, not spcf as acute or chronic N13.30 Unspecified hydronephrosis E11.9 Type 2 diabetes mellitus without complications Office Visit 02/07/2019 [facility] Bethany Saravia A41.9 Sepsis, 9:50a Assockeri M.D. 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 M86.9 Osteomyelitis, unspecified E78.00 Pure hypercholesterolemia, unspecified Assessments Date Code Description Provider 06/02/2019 R06.83 Snoring Joanne Campos DNP, RN, TECHNOLOGY ADOPTION MANAGER-BC 06/02/2019 R53.83 Other fatigue Joanne Campos DNP, RN, [facility]- 06/01/2019 E87.5 Hyperkalemia Jigar Canales MD 06/01/2019 [...] I82.422 Acute embolism and thrombosis of left Nelson Vazquez MD iliac vein 05/19/2019 Z79.84 senior living (current) use of oral Nelson Vazquez MD [...] Type 2 diabetes mellitus with diabetic Sue O'anton, PA -C neuropathy, unspecified 02/12/2019 E11.22 Type 2 diabetes mellitus with diabetic Sue O'anton, PA -C chronic kidney disease 02/12/2019 N18.3 Chronic kidney disease, stage 3 Sue O'anton, PA-C (moderate) 02/12/2019 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 neuropathy, unspecified 02/10/2019 E11.22 Type 2 diabetes mellitus with diabetic Iris Hopper D.O. chronic kidney disease 02/10/2019 N12 Tubulo-interstitial nephritis, not Iris Ward, D.O. specified as acute or chronic 02/10/2019 N18.3 Chronic kidney disease, stage 3 Iris Hopper D.O. (moderate) 02/09/2019 R78.81 Bacteremia Mak Boswell M.D. 02/09/2019 A41.9 Sepsis, unspecified organism Iris Hopper D.O. 02/09/2019 R65.21 Severe sepsis with septic shock Iris Hopper D.O. 02/09/2019 N12 Tubulo-interstitial nephritis, not Iris Ward, D.O. specified as acute or chronic 02/09/2019 N13.30 Unspecified hydronephrosis Iris Hopper D.O. 02/09/2019 E11.40 Type 2 diabetes mellitus with diabetic Tiffani IgnacioO. neuropathy, unspecified 02/08/2019 A41.9 Sepsis, unspecified organism [...] Jigar Canales MD Plan of Treatment Future Appointment(s):07/15/2019 8:15 am - Joanne Campos DNP, RN, TECHNOLOGY ADOPTION MANAGER-BC at [facility]06/09/2019 4:00 pm - Sukumar Prakash M.D. at [facility]11/17/2019 8:00 am - Nelson Vazquez MD at [place] [facility]06/17/2019 8:00 am - Jigar Canales MD at [facility] Cknxcpndqw69/25/2020 11:20 am - Marco Carcamo MD at [facility] Internal Medicine - [address]/11/2019 9:30 am - Vinayak Martinez M.D. at [place] [facility]06/02/2019 - Joanne Campos DNP, RN, [facility]-BCR06.83 SnoringFollow up:3 weeks: alternatively, you can call 1-week after HST and then we can set you up with CPAP prior to visit and see you in 6- weeks.Recommendations:Due to fatigue, snoring, and fragmented sleep, suspect VERONICA, if HST non-diagnostic, recommend in lab study. If you are diagnosed with VERONICA recommend CPAP auto. Review of risks of untreated sleep apnea including cardiovascular events: rhythm irregularities, heart attack, stroke; gastro esophageal reflux disease (GERD); diabetes; anxiety, depression; high blood pressure; accidents (machinery and automobile)the fact that you would pursue CPAP treatment will recommend Home Sleep Test (HST). Limitations for underestimation or inability to predict negativity reviewed. If HST non- diagnostic you would need an in-lab NPSG. If you need in-lab NPSG remind us to order an adjustable Hospital bed. If youhave any sleepiness while driving you MUST avoid operating a vehicle or machinery. If you have any further questions, please call the [facility] at [phone].r53.83 Other fatigueRecommendations:Should improve with treatment Functional Status Description No Information Available Mental Status Description No Information Available Referrals Description No Information Available
--- OUTSIDE RECORDS SUMMARY | 2019-06-23 09:20 | XMS REPORT | Continuity of Care Document ---
:1945 External Reference #:[id number] Author Name Nelson Vazquez MD (transmitted by agent of provider Allegra Jesus) Address [address] [place] [id number] Care Team Providers Name Role Phone Chuy Escalera MD - Endocrinology, Care Team Information [employer] Diabetes & Metabolism Prabha Washington MD - Internal Care Team Information [employer] [phone] Medicine Marco Carcamo MD - Hospitalist Care Team Information [employer] [phone] Problems Active Problems Provider Date Type 2 diabetes mellitus Kiran Davis, 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/2007 Martir,GELYP Neuralgia Neuritis & Radiculitis Kiran Davis, 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/2007 Unspecified Martir,FACP Lyme disease Kiran Davis, 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/2007 Martir,GELYP Pure hypercholesterolemia Kiran Davis, 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/2007 Martir,FACP 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, 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 Martir,FACP Anticoagulants 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 Kiran Davis, 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/2007 Encounter Martir,FACP Sleep apnea Kiran Davis, Onset: 06/18/2007 Martir,FACP Peripheral venous insufficiency Kiran Davis, Onset: 06/18/2007 Martir,FACP Diabetic polyneuropathy Kiran Davis, Onset: 10/07/2007 Martir,FACP 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 Kiran Davis, Onset: 06/17/2008 mellitus Martir,[facility] Hyperlipidemia Wojciech Jones M.D., [facility], Onset: 04/16/2013 [facility] Benign essential hypertension Wojciech Jones M.D., [facility], Onset: 04/16/2013 [facility] Chronic ischemic heart disease Wojciech Jones M.D., [facility], Onset: 04/16/2013 [facility] Essential hypertension Wojciech Jones M.D., [facility], Onset: 08/01/2015 [facility] Atherosclerotic heart disease of [place] Wojciech Jones M.D., [facility], 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 [facility] Obesity Wojciech Jones M.D., [facility], Onset: 06/18/2016 [facility] Localized, primary osteoarthritis Sofya Borrego M.D. Onset: 11/03/2018 Coronary atherosclerosis Noble Chen M.D. Onset: 11/11/2018 Social History Type Date Description Comments Sex Unknown Tobacco Use Start: Unknown Never Smoked Cigarettes ETOH Use consumes 1-2 glasses of wine per week Recreational Drug Use Never Used Drugs Tobacco Use Start: Unknown Patient has never smoked Smoking Status Reviewed: 05/19/19 Patient has never smoked Exercise Type/Frequency Exercises rarely Allergies, Adverse Reactions, Alerts Active Allergies Reaction Severity Comments Date NKDA 04/06/2014 Latex Rash 04/06/2014 Adhesives blisters 04/06/2014 Inactive Allergies None 03/18/2007 NKDA 04/16/2013 S 06/03/2013 Medications Active Medications SIG Qnty Indications Ordering Provider Date Glipizide ER 1 by mouth every 30tabs Nelson Vazquez MD 05/19/2019 5mg day Tablets ER 24HR Tradjenta 5mg every day in 30tabs E11.22 Nelson Vazquez MD 05/19/2019 5mg Tablets the morning Ferrousul 1 tab by mouth 3 90tabs [facility], 03/25/2019 325(65Fe) times a week MD mg Tablets Sodium Bicarbonate 2 tab by mouth 360tabs [facility], 03/11/2019 twice times MD 650mg Tablets daily Gabapentin By mouth twice [facility], 03/11/2019 300mg daily MD Capsules Lisinopril 1 [...] FSCAI pain, if no relief call 911 CellCeuticals Skin Care Starter Pack 1 by mouth twice a [...] Regadenoson, 0.1 MG Juan C Grey, DO [facility] 11/27/2018 Injection Technetium TC 99M Juan C Grey, DO [facility] 11/27/2018 Tetrofosmin, Per Unit Dose Up To 40 Millicuries Injection Technetium TC 99M Juan C Grey, DO [facility] 11/27/2018 Tetrofosmin, Per Unit Dose Up To 40 Millicuries Injection Depomedrol 40MG Sofya Borrego M.D. 11/03/2018 Injection Celestone 3 mg and 3mg Mela Catherine-Young, 05/05/2014 Injection M.D. Celestone 3 mg and 3mg Mela Catherine-Young, 04/06/2014 Injection M.D. Immunizations CPT Code Status Date Vaccine Lot # [id number] Given 02/23/2010 Influenza Virus 3Yrs & Over 10426 Given 02/15/2009 Influenza Virus Vaccine, Pandemic Formulation 88001 Given 02/15/2009 Influenza Virus Vaccine, Pandemic Formulation [id number] 60536 Given 02/15/2009 Administration Swine Flu Shot 25276 Given 03/18/2007 Influenza Virus 3Yrs & Over 69561 Given 03/18/2007 Influenza Virus 3Yrs & Over [id number] 47714 Given 02/21/2000 Influenza Virus 3Yrs & Over Vital Signs Date Vital Result Comment 05/19/2019 7:59am Height 71 inches 5'11" Weight 219.00 lb w/ shoes Heart Rate 68 /min BP Systolic Sitting 140 mmHg BP Diastolic Sitting 75 mmHg BMI (Body Mass Index) 30.5 kg/m2 05/18/2019 8:08am Height 71 inches 5'11" Weight 219.00 lb Heart Rate 68 /min BP Systolic Sitting 136 mmHg BP Diastolic Sitting 67 mmHg O2 % BldC Oximetry 95 % BMI (Body Mass Index) 30.5 kg/m2 Results Test Acquired Date Facility Test Result H/L Range Note Neph Routine 05/16/2019 [facility] Total Protein 29 mg/dL [address] [place] [address] [phone] Creatinine Random Urine 58.65 mg/dL CBC Auto 05/16/2019 [facility] White Blood 7.2 10^3/uL Normal 3.5-10.[address] [place] [address] [phone] Red Blood Count 3.80 10^6/uL Low 4.18-5.48 [...] Blood Cells % 0.0 Basic Metabolic 05/16/2019 [facility] Sodium 139 mmol/L Normal 135-[address] [place] [address] [phone] Potassium 4.8 mmol/L Normal 3.5-5.0 Chloride 108 mmol/L Normal 101-111 Co2 Carbon Dioxide 24 mmol/L Normal 22-32 Anion Gap 7 mmol/L Normal 2-11 Glucose 131 mg/dL High 70-100 Blood Urea Nitrogen 30 mg/dL High 6-24 Creatinine 1.61 mg/dL High 0.67-1.17 BUN/Creatinine Ratio 18.6 Normal 8-20 Calcium 9.1 mg/dL Normal 8.6-10.3 Egfr Non- 42.4 >60 Egfr 51.3 >60 1 Urinalysis Profile 05/16/2019 [facility] Urine Color Yellow [address] [place] [address] [phone] Urine Appearance Cloudy Urine Specific Platte 1.010 Normal 1.010-1.030 Urine pH 7.0 Normal [...] Present Abnormal Absent Urine Culture And 05/16/2019 [facility] Urine Culture SEE RESULT [address] [place] [address] [phone] Urine Culture And 04/21/2019 [facility] Urine Culture SEE RESULT [address] [place] [address] [phone] Laboratory test 04/21/2019 [facility] Ferritin 60.5 ng/mL Normal 24-[address] [place] [address] [phone] Iron & Iron 04/21/2019 [facility] Iron 38 g/dL Low 50-2 Binding Capacity [address] [place] [address] [phone] Unsaturated Iron Binding < 394 g/dL Total Iron Binding Capacity 409 g/dL Normal 250-450 Transferrin 292 mg/dL Normal 203-362 % Iron Saturation 9 % Low 15-55 Laboratory test 04/21/2019 [facility] Albumin 4.5 g/dL Normal 3.2-5.[address] [place] [address] [phone] Urinalysis 04/21/2019 [facility] Urine Color Yellow Profile [address] [place] [address] [phone] Urine Appearance Cloudy Urine Specific Platte 1.010 Normal 1.010-1.030 Urine pH 6.0 Normal [...] Urine Bacteria Absent Absent Basic Metabolic 04/21/2019 [facility] Sodium 140 mmol/L Normal 135-[address] [place] [address] [phone] Potassium 4.7 mmol/L Normal 3.5-5.0 Chloride 111 mmol/L Normal 101-111 Co2 Carbon Dioxide 22 mmol/L Normal 22-32 Anion Gap 7 mmol/L Normal 2-11 Glucose 104 mg/dL High 70-100 Blood Urea Nitrogen 43 mg/dL High 6-24 Creatinine 1.81 mg/dL High 0.67-1.17 BUN/Creatinine Ratio 23.8 High 8-20 Calcium 9.0 mg/dL Normal 8.6-10.3 Egfr Non- 37.0 >60 Egfr 44.8 >60 5 CBC Auto 04/21/2019 [facility] White Blood 9.0 10^3/uL Normal 3.5-10.[address] [place] [address] [phone] Red Blood Count 3.49 10^6/uL Low 4.18-5.48 [...] Blood Cells % 0.0 Neph Routine 04/21/2019 [facility] Total Protein Random 33 mg/ dL [address] [place] [address] [phone] Creatinine Random Urine 50.15 mg/dL 7 Urine Culture And 03/24/2019 [facility] Urine Culture SEE RESULT [address] [place] [address] [phone] Laboratory test 03/24/2019 [facility] Ferritin 80.8 ng/mL Normal 24-[address] [place] [address] [phone] Iron & Iron 03/24/2019 [facility] Iron 57 g/dL Normal 50-[address] [place] [address] [phone] Unsaturated Iron Binding < 342 g/dL Total Iron Binding Capacity 357 g/dL Normal 250-450 Transferrin 255 mg/dL Normal 203-362 % Iron Saturation 16 % Normal 15-55 Laboratory test 03/24/2019 [facility] Albumin 4.0 g/dL Normal 3.2-5.[address] [place] [address] [phone] Urinalysis 03/24/2019 [facility] Urine Color Yellow Profile [address] [place] [address] [phone] Urine Appearance Cloudy Urine Specific Platte 1.010 Normal 1.010-1.030 Urine pH 6.0 Normal [...] Urine Bacteria Absent Absent Basic Metabolic 03/24/2019 [facility] Sodium 139 mmol/L Normal 135-[address] [place] [address] [phone] Potassium 5.0 mmol/L Normal 3.5-5.0 Chloride 111 mmol/L Normal 101-111 Co2 Carbon Dioxide 22 mmol/L Normal 22-32 Anion Gap 6 mmol/L Normal 2-11 Glucose 103 mg/dL High 70-100 Blood Urea Nitrogen 29 mg/dL High 6-24 Creatinine 1.88 mg/dL High 0.67-1.17 BUN/Creatinine Ratio 15.4 Normal 8-20 Calcium 8.6 mg/dL Normal 8.6-10.3 Egfr Non- 35.5 >60 Egfr 42.9 >60 10 CBC Auto 03/24/2019 [facility] White Blood 9.3 10^3/uL Normal 3.5-10.[address] [place] [address] [phone] Red Blood Count 3.00 10^6/uL Low 4.18-5.48 [...] Blood Cells % 0.1 Neph Routine 03/24/2019 [facility] Total Protein Random 27 mg/ dL [address] [place] [address] [phone] Creatinine Random Urine 60.28 mg/dL Urine Culture And 03/10/2019 [facility] Urine SEE RESULT 11 , [address] [place] [address] [phone] Laboratory test 03/10/2019 [facility] Albumin 4.2 g/dL Normal 3.2- [address] 5[address]2 [place] [address] [phone] Basic Metabolic 03/10/2019 [facility] Sodium 139 mmol/L Normal 135- Panel [address] [place] [address] [phone] Potassium 4.3 mmol/L Normal 3.5-5.0 Chloride 113 mmol/L High 101-111 Co2 Carbon Dioxide 16 mmol/L Low 22-32 Anion Gap 10 mmol/L Normal 2-11 Glucose 128 mg/dL High 70-100 Blood Urea Nitrogen 50 mg/dL High 6-24 Creatinine 2.47 mg/dL High 0.67-1.17 BUN/Creatinine Ratio 20.2 High 8-20 Calcium 8.9 mg/dL Normal 8.6-10.3 Egfr Non- 25.9 >60 Egfr 31.3 >60 14 Laboratory test 03/10/2019 [facility] Creatinine Random 47.78 mg /dL [address] [place] [address] [phone] Total Protein Random Urine 48 mg/dL 16 CBC Auto 03/10/2019 [facility] White Blood 10.9 10^3/uL High 3.5-10.[address] [place] [address] [phone] Red Blood Count 3.10 10^6/uL Low 4.18-5.48 [...] Blood Cells % 0.0 Urinalysis Profile 03/10/2019 [facility] Urine Color Yellow [address] [place] [address] [phone] Urine Appearance Clear Urine Specific Platte 1.010 Normal 1.010-1.030 Urine pH 6.0 Normal 5-9 Urine Urobilinogen Negative Negative Urine Ketones Negative Negative Urine Protein Negative Negative Urine Leukocytes Trace Abnormal Negative Urine Blood Negative Negative * * Abnormal Negative 17 Urine Nitrite Negative Negative Urine Bilirubin Negative Negative Urine Glucose Negative Negative Urine White Blood Cell 2+(11-20/hpf) Abnormal Absent Urine Red Blood Cell Absent Absent Urine Bacteria Absent Absent Laboratory test 03/04/2019 [facility] Ferritin 122.7 Normal 24 -336 18, 19 finding [address] [facility] ng/[place] [address] [phone] Iron & Iron 03/04/2019 [facility] Iron 56 g/dL Normal 50- [address] [place] [address] [phone] Unsaturated Iron Binding < 332 g/dL Total Iron Binding Capacity 347 g/dL Normal 250-450 Transferrin 248 mg/dL Normal 203-362 % Iron Saturation 16 % Normal 15-55 Laboratory test 03/04/2019 [facility] Albumin 3.9 g/dL Normal 3.2-5.2 20 finding [address] [place] [address] [phone] Hemoglobin A1c (Glyco HGB) 7.5 % High 4.0-5.6 21 Basic Metabolic 03/04/2019 [facility] Sodium 140 mmol/L Normal 135-[address] [place] [address] [phone] Potassium 5.0 mmol/L Normal 3.5-5.0 Chloride 116 mmol/L High 101-111 Co2 Carbon Dioxide 14 mmol/L Critical low 22-32 22 Anion Gap 10 mmol/L Normal 2-11 Glucose 118 mg/dL High 70-100 Blood Urea Nitrogen 73 mg/dL High 6-24 Creatinine 3.28 mg/dL High 0.67-1.17 BUN/Creatinine Ratio 22.3 High 8-20 Calcium 8.8 mg/dL Normal 8.6-10.3 Egfr Non- 18.6 >60 Egfr 22.6 >60 23 CBC Auto 03/04/2019 [facility] White Blood 10.8 10^3/uL Normal 3.5-10.[address] [place] [address] [phone] Red Blood Count 3.37 10^6/uL Low 4.18-5.48 [...] Cells % 0.0 Urine Culture And 03/04/2019 [facility] Urine Culture SEE RESULT [address] [place] [address] [phone] Urinalysis Profile 03/04/2019 [facility] Urine Color Yellow [address] [place] [address] [phone] Urine Appearance Cloudy Urine Specific Platte 1.011 Normal 1.010-1.030 Urine pH 6.0 Normal 5-9 Urine Urobilinogen Negative Negative Urine Ketones Negative Negative Urine Protein Negative Negative Urine Leukocytes 3+ Abnormal Negative Urine Blood 2+ Abnormal Negative Urine Nitrite Negative Negative Urine Bilirubin Negative Negative Urine Glucose Negative Negative Urine White Blood Cell 3+(>20/hpf) Abnormal Absent Urine Red Blood Cell 3+(>10/hpf) Abnormal Absent Urine Bacteria Absent Absent Neph Routine 03/04/2019 [facility] Total Protein Random 69 mg/ dL [address] [place] [address] [phone] Creatinine Random Urine 72.89 mg/dL 26 Comp Metabolic 03/04/2019 [facility] Sodium 142 mmol/L Normal 135-[address] [place] [address] [phone] Potassium 4.6 mmol/L Normal 3.5-5.0 Co2 Carbon [...] Egfr Non- 19.1 >60 Egfr 23.1 >60 27 Chloride 120 mmol/L High 101-111 Anion Gap 7 mmol/L Normal 2-11 CBC Auto 03/04/2019 [facility] White Blood 9.5 10^3/uL Normal 3.5-10.[address] [place] [address] [phone] Red Blood Count 3.07 10^6/uL Low 4.18-5.48 [...] Blood Cells % 0.0 Urinalysis Profile 03/04/2019 [facility] Urine Color Yellow [address] [place] [address] [phone] Urine Appearance Clear Urine Specific Platte 1.010 Normal 1.010-1.030 Urine pH 7.0 Normal 5-9 Urine Urobilinogen Negative Negative Urine Ketones Negative Negative Urine Protein Negative Negative Urine Leukocytes Trace Abnormal Negative Urine Blood Negative Negative Urine Nitrite Negative Negative Urine Bilirubin Negative Negative Urine Glucose Negative Negative Urine White Blood Cell 1+(6-10/hpf) Abnormal Absent Urine Red Blood Cell Absent Absent Urine Bacteria Absent Absent Basic Metabolic 03/04/2019 [facility] Sodium 142 mmol/L Normal 135-[address] [place] [address] [phone] Potassium 4.5 mmol/L Normal 3.5-5.0 Glucose 125 mg/dL High 70-100 Blood Urea Nitrogen 72 mg/dL High 6-24 Creatinine 3.24 mg/dL High 0.67-1.17 BUN/Creatinine Ratio 22.2 High 8-20 Calcium 8.5 mg/dL Low 8.6-10.3 Egfr Non- 18.9 >60 Egfr 22.9 >60 28 Chloride 118 mmol/L High 101-111 Co2 Carbon Dioxide 14 mmol/L Critical low 22-32 29 Anion Gap 10 mmol/L Normal 2-11 Xray 12/25/2018 [facility] SP Lumbarsacral 4+ VWS <pending> [address] [place] [address] [phone] MRI Lumbar Spine W/O <pending> Urine Culture And 12/16/2018 [facility] Urine Culture SEE RESULT [address] [place] [address] [phone] Laboratory test 12/16/2018 [facility] Creatinine 83.97 mg/dL finding [address] [place] [address] [phone] Urinalysis Profile 12/16/2018 [facility] Urine Color Yellow [address] [place] [address] [phone] Urine Appearance Cloudy Urine Specific Platte 1.011 Normal 1.010-1.030 Urine pH 6.0 Normal 5-9 Urine Urobilinogen Negative Negative Urine Ketones Negative Negative Urine Protein 1+(30 mg/dL) Abnormal Negative Urine Leukocytes 3+ Abnormal Negative Urine Blood Negative Negative * * Abnormal Negative 31 Urine Nitrite Negative Negative Urine Bilirubin Negative Negative Urine Glucose Negative Negative Urine White Blood Cell 3+(>20/hpf) Abnormal Absent Urine Red Blood Cell Absent Absent Urine Bacteria 1+ Abnormal Absent Laboratory test 12/16/2018 [facility] Total Protein 57 mg/dL finding [address] [place] [address] [phone] CBC Auto Diff 12/16/2018 [facility] White Blood 7.7 10^3/uL Normal 3.5-[address] Count 0.8 [place] [address] [phone] Red Blood Count 3.90 10^6/uL Low 4.18-5.48 [...] Blood Cells % 0.0 Basic Metabolic 12/16/2018 [facility] Sodium 141 mmol/L Normal 135-[address] [place] [address] [phone] Potassium 4.9 mmol/L Normal 3.5-5.0 Chloride 111 mmol/L Normal 101-111 Co2 Carbon Dioxide 23 mmol/L Normal 22-32 Anion Gap 7 mmol/L Normal 2-11 Glucose 134 mg/dL High 70-100 Blood Urea Nitrogen 36 mg/dL High 6-24 Creatinine 1.74 mg/dL High 0.67-1.17 BUN/Creatinine Ratio 20.7 High 8-20 Calcium 9.6 mg/dL Normal 8.6-10.3 Egfr Non- 38.8 >60 Egfr 46.9 >60 32 Urine Microalbumin 12/16/2018 [facility] Ur Microalbumin 109.3 mg/L Random 101 (mg/L) [place] [address] [phone] Urine Creatinine 83.70 mg/dL Urine Microalbumin/Creatinine 130.5 High <31 Lipid Profile 12/16/2018 [facility] Triglycerides 141 mg/dL 33 (Trig/Chol/HDL) [address] [place] [address] [phone] Cholesterol 144 mg/dL 34 HDL Cholesterol 38.3 mg/dL 35 LDL Cholesterol 78 mg/dL 36 Comp Metabolic 12/16/2018 [facility] Sodium 141 mmol/L Normal 135-[address] [place] [address] [phone] Potassium 4.9 mmol/L Normal 3.5-5.0 Chloride 111 [...] Egfr Non- 38.8 >60 Egfr 46.9 >60 37 Laboratory test 12/16/2018 [facility] Thyroxine 6.06 g/dL Low 6.09-12.[address] [place] [address] [phone] TSH (Thyroid Stim Horm) 1.41 mcIU/mL Normal 0.34-5.60 Vitamin B12 351 pg/mL Normal 180-914 38 Lipid Profile 11/22/2018 [facility] Triglycerides 89 mg/dL 39 (Trig/Chol/HDL) [address] [place] [address] [phone] Cholesterol 135 mg/dL 40 HDL Cholesterol 41.3 mg/dL 41 LDL Cholesterol 76 mg/dL 42 CBC Auto 11/22/2018 [facility] White Blood 9.1 10^3/uL Normal 3.5-10.[address] [place] [address] [phone] Red Blood Count 3.94 10^6/uL Low 4.18-5.48 [...] Blood Cells % 0.0 Comp Metabolic 11/22/2018 [facility] Sodium 140 mmol/L Normal 135-[address] [place] [address] [phone] Chloride 111 mmol/L Normal 101-111 Co2 Carbon [...] Egfr Non- 39.0 >60 Egfr 47.2 >60 43 Potassium 5.2 mmol/L High 3.5-5.0 Anion Gap 6 mmol/L Normal 2-11 Laboratory test 11/22/2018 [facility] Hemoglobin A1c 7.1 % High 4.0-5.6 44 finding 101 (Glyco HGB) [place] [address] [phone] TSH (Thyroid Stim Horm) 1.22 mcIU/mL Normal 0.34-5.60 Total Protein 24HR 11/22/2018 [facility] Urine Collection Time [address] [place] [address] [phone] Urine Total Volume 2350 mL Urine TP Concentration 43 mg/dL Urine Total Protein/24HR 1010 mg/24Hr High 0-165 Creatinine Clearance 11/22/2018 [facility] Urine Collection [address] [place] [address] [phone] Urine Total Volume 2350 mL Creatinine, Serum 1.73 mg/dL High 0.51-0.95 Urine Creatinine Concentration 68.77 mg/dL Creatinine Clearance 65 mL/min Low 97-137 Laboratory test 11/22/2018 [facility] Fructosamine 253 mcmol/L 200 - [address] [place] [address] [phone] Vitamin B12 327 pg/mL Normal 180-914 46 Vitamin D Total 25(Oh) 25.1 ng/mL Normal 20-50 47 Lyme Screen W/ Reflex To WB Negative Negative Tick-Borne 11/22/2018 [facility] Anaplasma <1:64 <1:64 48 Disease AB [address] phagocytophil[place] [address] [phone] Babesiosis Evaluation <1:64 titer <1:64 49 Ehrlichia chaffeensis IgG AB <1:64 titer <1:64 50 Lyme Disease Serology Negative Negative 51 Lipid Panel - 11/22/2018 [facility] Creatine 94 U/L Normal 10- [address] Kinase(CK) [place] [address] [phone] 1 Because ethnic data is not always [...] 5 Kidney failure <15 (or dialysis) 2 SEE RESULT BELOW Name: MANCINIDARIO : [address]: Jigar Canales MD Acct: [id number] Unit: [id number] AGE: 73 Location: LAB Re05/16/19 SEX: M Status: REG REF SPEC: [id number] JAROD: 05/16/[address]: Jigar Canales MD REQ: [id number] RECD: 05/16/19 STATUS: COMP _ SOURCE: URINE SPDESC: ORDERED: Urine Culture Procedure Result Reported Site Urine Culture Final 05/18/19741 ML Organism 1 ENTEROCOCCUS FAECALIS Ramsay Count >100,000 (Many) CFU/ML Organism 2 NORMAL CADENCE Ramsay Count 10-25,000 (Moderate) CFU/ML 1. ENTEROCOCCUS FAECALIS M.I.C. RX --------- ------ Ampicillin <=2 S Penicillin 4 S Ciprofloxacin <=0.5 S Gentamicin High Level S Levofloxacin 1 S Nitrofurantoin <=16 S * Quinupristin/Dalfopristin 8 R * Streptomycin High Level S Tetracycline >=16 R Tigecycline <=0.12 S Vancomycin 1 S Imipenem-Deduced S * Ampicillin/Sulbactam-Deduced S CONTINUED ON NEXT PAGE DEPARTMENT OF PATHOLOGY, [address] [place] [address] Jorge Luis Davis M.D. Director [facility] # [id number] Specimen: [id number] Collected: 05/16/19-1029 Received: 05/16/19-1047 (Continued) Procedure Result Reported Site Urine Culture Final (continued) * These antibiotics are not available in the [facility] Formulary Contact the Microbiology Department for any additional antibiotic reporting. * ML - Main Lab . END OF REPORT DEPARTMENT OF PATHOLOGY, [address] [place] [address] Jorge Luis Davis M.D. Director [facility] # [id number] 3 SEE RESULT BELOW Name: DARIO MANCINI : [address]: Jigar Canales MD Acct: [id number] Unit: [id number] AGE: 73 Location: LAB Re04/21/19 SEX: M Status: REG REF SPEC: [id number] JAROD: 04/21/[address]: Jigar Canales MD REQ: [id number] RECD: 04/21/19 STATUS: COMP _ SOURCE: URINE SPDESC: ORDERED: Urine Culture Procedure Result Reported Site Urine Culture Final 04/22/19- 1440 ML No growth of clinically significant organisms * ML - Main Lab . END OF REPORT DEPARTMENT OF PATHOLOGY, [address] [place] [address] Jorge Luis Davis M.D. Director [facility] # [id number] 4 *Ascorbic acid is present which may interfere with detection of blood. 5 Because ethnic data is not always [...] 5 Kidney failure <15 (or dialysis) 6 CATH SPECIMEN 7 CATH SPECIMEN 8 SEE RESULT BELOW Name: DARIO MANCINI : [address]: Jigar Canales MD Acct: [id number] Unit: [id number] AGE: 73 Location: LAB Re03/24/19 SEX: M Status: REG REF SPEC: [id number] JAROD: 03/24/[address]: Jigar Canales MD REQ: [id number] RECD: 03/24/19 STATUS: COMP _ SOURCE: URINE SPDESC: ORDERED: Urine Culture Procedure Result Reported Site Urine Culture Final 03/25/19- 1459 ML No Growth (<1,000 CFU/mL) * ML - Main Lab . END OF REPORT DEPARTMENT OF PATHOLOGY, [address] [place] [address] Jorge Luis Davis M.D. Director [facility] # [id number] 9 *Ascorbic acid is present which may interfere with detection of blood. 10 Because ethnic data is not always readily [...] 15-29 5 Kidney failure <15 (or dialysis) 11 Next week. 12 SEE RESULT BELOW Name: DARIO MANCINI : [address]: Jigar Canales MD Acct: [id number] Unit: [id number] AGE: 73 Location: LAB Re03/10/19 SEX: M Status: REG REF SPEC: [id number] JAROD: 03/10/[address]: Jigar Canales MD REQ: [id number] RECD: 03/10/19 STATUS: COMP _ SOURCE: URINE SPDESC: ORDERED: Urine Culture Procedure Result Reported Site Urine Culture Final 03/11/19- 1443 ML No Growth (<1,000 CFU/mL) * ML - Main Lab . END OF REPORT DEPARTMENT OF PATHOLOGY, [address] [place] [address] Jorge Luis Davis M.D. Director [facility] # [id number] 13 Next week. 14 Because ethnic data is not always [...] 5 Kidney failure <15 (or dialysis) 15 Next week. 16 Next week. 17 *Ascorbic acid is present which may interfere with detection of blood. 18 Today 19 Today 20 Today 21 Therapeutic target for the treatment of diabetes mellitus patients is <7% HBA1C, and in selective patients <6.0%. Please refer to [place] [employer] diabetic care guidelines for further information. 22 Critical Result CO2:14 Called to REMBERTO Bello at: 10:23:35 by:[id number] Read back by:REMBERTO Bello 23 Because ethnic data is not always readily [...] 15-29 5 Kidney failure <15 (or dialysis) 24 SEE RESULT BELOW Name: DARIO MANCINI : [address]: Jigar Canales MD Acct: [id number] Unit: [id number] AGE: 73 Location: LAB Re03/04/19 SEX: M Status: REG REF SPEC: [id number] JAROD: 03/04/[address] [facility] [address]: Jigar Canales MD REQ: [id number] RECD: 03/04/19 STATUS: [facility] DR: Prabha Washington MD PC _ SOURCE: URINE SPDESC: ORDERED: Urine Culture Procedure Result Reported Site Urine Culture Final 03/05/19- 1548 ML Organism 1 NANCY ALBICANS Ramsay Count 25-50,000 (Moderate) CFU/ML * ML - Main Lab . END OF REPORT DEPARTMENT OF PATHOLOGY, [address] [place] [address] Jorge Luis Davis M.D. Director [facility] # [id number] Today Today 27 Because ethnic data is not always [...] 5 Kidney failure <15 (or dialysis) 28 Because ethnic data is not always readily [...] 15-29 5 Kidney failure <15 (or dialysis) 29 Critical Result CO2:14 Called to [id number] at: 19:35:48 by:[id number] Read back by:[id number] 30 SEE RESULT BELOW Name: DARIO MANCINI : [address]: Prabha Washington MD Acct: [id number] Unit: [id number] AGE: 73 Location: LAB Re12/16/18 SEX: M Status: REG REF SPEC: [id number] JAROD: 12/16/18-[address] [facility] [address]: Jigar Canales MD REQ: [id number] RECD: 12/16/18 STATUS: [facility] DR: Prabha Washington MD PC _ SOURCE: URINE SPDESC: ORDERED: Urine Culture Procedure Result Reported Site Urine Culture Final 12/18/18- 0842 ML Organism 1 CITROBACTER FREUNDII Ramsay Count 25-50,000 (Moderate) CFU/ML 1. CITROBACTER FREUNDII [...] . END OF REPORT DEPARTMENT OF PATHOLOGY, [address] [place] [address] Jorge Luis Davis M.D. Director [facility] # [id number] 31 *Ascorbic acid is present which may interfere with detection of blood. 32 Because ethnic data is not always [...] 5 Kidney failure <15 (or dialysis) 33 Desirable: <150 Borderline High: 150-199 High: 200-499 Very High: >500 34 Desirable: <200 Borderline High: 200-239 High: >239 35 Low: <40 Desirable: 40-60 High: >60 36 Desirable: <100 Near Optimal: 100-129 Borderline High: 130-159 High: 160-189 Very High: >189 37 Because ethnic data is not always readily [...] 15-29 5 Kidney failure <15 (or dialysis) 38 Normal Range 180 to 914 Indeterminate Range 145 to 180 Deficient Range <145 39 Desirable: <150 Borderline High: 150-199 High: 200-499 Very High: >500 40 Desirable: <200 Borderline High: 200-239 High: >239 41 Low: <40 Desirable: 40-60 High: >60 42 Desirable: <100 Near Optimal: 100-129 Borderline High: 130-159 High: 160-189 Very High: >189 43 Because ethnic data is not always readily [...] 15-29 5 Kidney failure <15 (or dialysis) 44 Therapeutic target for the treatment of diabetes mellitus patients is <7% HBA1C, and in selective patients <6.0%. Please refer to [place] [employer] diabetic care guidelines for further information. 45 Test Performed by: [address] [id number] 46 Normal Range 180 to 914 Indeterminate Range 145 to 180 Deficient Range <145 47 Total 25-Hydroxyvitamin D2 and D3 (25-OH-VitD) <10 ng/mL (severe deficiency) 10-19 ng/mL (mild to moderate deficiency) 20-50 ng/mL (optimum levels) 51-80 ng/mL (increased risk of hypercalciuria) >80 ng/mL (toxicity possible) 48 ADDITIONAL INFORMATION This test was developed using an analyte specific reagent. Its performance characteristics were determined by [facility] in a manner consistent with CLIA requirements. This test has not been cleared or approved by the U.S. Food and Drug Administration. 49 ADDITIONAL INFORMATION This test was developed using an analyte specific reagent. Its performance characteristics were determined by [facility] in a manner consistent with CLIA requirements. This test has not been cleared or approved by the U.S. Food and Drug Administration. 50 ADDITIONAL INFORMATION This test was developed using an analyte specific reagent. Its performance characteristics were determined by [facility] in a manner consistent with CLIA requirements. This test has not been cleared or approved by the U.S. Food and Drug Administration. 51 No evidence of antibodies to B. burgdorferi detected. False negative results may occur in recently infected patients (<=2 weeks) due to low or undetectable antibody levels to B. burgdorferi. If recent exposure is suspected, a second sample should be collected and tested in 2-4 weeks. Test Performed by: [facility] [address] [place] [address] Procedures Date Code Description Status 02/09/2019 76494 ECHO Transthorasic Realtime 2D W Doppler & Color Flow Completed Hosp 11/27/2018 11591 Stress Test Completed 11/27/2018 92907 Myocardial Perfusion Imaging Tomographic (Spect) Completed Multiple Studies 05/15/2010 515645635 Diabetic Foot Exam Completed 04/28/2010 [id number] Diabetic Foot Exam Completed 02/28/2010 [id number] Diabetic Retinal Eye Exam Completed 04/01/2008 [id number] Diabetic Retinal Eye Exam Completed 02/26/2008 [id number] Diabetic Foot Exam Completed 02/05/2008 957954830 Diabetic Foot Exam Completed 02/25/2007 [id number] Diabetic Retinal Eye Exam Completed Medical Devices Description No Information Available Encounters Type Date Location Provider Dx Diagnosis Office Visit 05/19/2019 [facility] Nelson Vazquez MD E11.22 Type 2 diabetes 8:00a [facility] mellitus w diabetic chronic kidney disease I82.422 Acute embolism and thrombosis of left iliac vein Office Visit 04/22/2019 8:00a [facility] Jigar King E11.22 Type 2 diabetes MD Parker mellitus w diabetic chronic kidney disease N18.3 Chronic kidney disease, stage 3 (moderate) N17.9 Acute kidney failure, unspecified Office Visit 03/25/2019 8:00a [facility] Nephneda King N17.9 Acute kidney MD Parker failure, unspecified I12.9 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/unsp [facility] kdny E11.22 Type 2 diabetes mellitus w diabetic chronic kidney disease N18.3 Chronic kidney disease, stage 3 (moderate) Office Visit 03/11/2019 8:00a Dada Nephenda King N17.9 Acute kidney MD Parker failure, unspecified 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 N18.3 Chronic kidney disease, stage 3 (moderate) E11.40 Type 2 diabetes mellitus with diabetic neuropathy, unsp N39.0 Urinary tract infection, site not specified Office Visit 03/04/2019 8:00a [facility] Jigar Garcia. N17.9 Acute kidney MD Parker failure, unspecified 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 N18.3 Chronic kidney disease, stage 3 (moderate) E11.40 Type 2 diabetes mellitus with diabetic neuropathy, unsp N12 Tubulo-interstitial nephritis, not spcf as acute or chronic N39.0 Urinary tract infection, site not specified Office Visit 02/12/2019 [facility] Sue A40.1 Sepsis due to 9:53a Assoc,pc Tyrel, PA-C streptococcus, Hospitalists group B R65.21 Severe sepsis with septic shock E11.40 Type 2 diabetes mellitus with diabetic neuropathy, unsp E11.22 Type 2 diabetes mellitus w diabetic chronic kidney disease N18.3 Chronic kidney disease, stage 3 (moderate) I25.10 Athscl heart disease of [place] coronary artery w/o ang pctrs Office Visit 02/11/2019 [facility] E11.40 Type 2 diabetes 9:51a Assockeri MD mellitus with Hospitalists diabetic neuropathy, unsp 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 E11.40 Type 2 diabetes Assoc,Tiffani PereraO. mellitus with Hospitalists diabetic neuropathy, unsp E11.22 Type 2 diabetes mellitus w diabetic chronic kidney disease N12 Tubulo-interstitial nephritis, not spcf as acute or chronic N18.3 Chronic kidney disease, stage 3 (moderate) Office Visit 02/09/2019 9:50a [facility] A41.9 Sepsis, Assoc,keri Hopper D.O. unspecified Hospitalists organism R65.21 Severe sepsis with septic shock N12 Tubulo-interstitial nephritis, not spcf as acute or chronic N13.30 Unspecified hydronephrosis E11.40 Type 2 diabetes mellitus with diabetic neuropathy, unsp Office Visit 02/08/2019 [facility] Milly A41.9 Sepsis, 9:50a keri Maria MD unspecified Hospitalists organism R65.21 Severe sepsis with septic shock N12 Tubulo-interstitial nephritis, not spcf as acute or chronic N13.30 Unspecified hydronephrosis E11.9 Type 2 diabetes mellitus without complications Office Visit 02/07/2019 [facility] Bethany Saravia, A41.9 Sepsis, 9:50a keri Maria M.D. 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 M86.9 Osteomyelitis, unspecified E78.00 Pure hypercholesterolemia, unspecified Assessments Date Code Description Provider 05/19/2019 E11.22 Type 2 diabetes mellitus with diabetic Nelson Vazquez MD chronic kidney disease 05/19/2019 I82.422 Acute embolism and thrombosis of left Nelson Vazquez MD iliac vein 05/18/2019 N18.3 Chronic kidney disease, stage 3 Jigar Canales MD (moderate) 05/18/2019 I82.402 Acute embolism and thrombosis of Jigar Canales MD unspecified deep veins of left lower extremity 05/18/2019 E11.22 Type 2 diabetes mellitus with diabetic Jigar Canales MD chronic kidney disease 05/18/2019 N17.9 Acute kidney failure, unspecified Jigar [...] N18.3 Chronic kidney disease, stage 3 Jigar Canlaes MD (moderate) 03/04/2019 E11.40 Type 2 diabetes mellitus with linda Canales MD neuropathy, unspecified 03/04/2019 N12 Tubulo-interstitial nephritis, not Jigar Canales MD specified as acute or chronic 03/04/2019 N39.0 Urinary tract infection, site not Jigar Canales MD specified 02/12/2019 A40.1 Sepsis due to streptococcus, group B Sue O'anton, PA-C 02/12/2019 R65.21 Severe sepsis with septic shock Sue O'anton, PA-C 02/12/2019 E11.40 Type 2 diabetes mellitus with diabetic Suemeghan Sarah, PA -C neuropathy, unspecified 02/12/2019 E11.22 Type 2 diabetes mellitus with diabetic Suesherrill Sarah, PA -C chronic kidney disease 02/12/2019 N18.3 Chronic kidney disease, stage 3 Sue O'anton, PA-C (moderate) 02/12/2019 I25.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 neuropathy, unspecified 02/10/2019 E11.22 Type 2 diabetes mellitus with diabetic Iris Hopper, D.O. chronic kidney disease 02/10/2019 N12 Tubulo-interstitial nephritis, not Iris Ward, D.O. specified as acute or chronic 02/10/2019 N18.3 Chronic kidney disease, stage 3 Iris Hopper, D.O. (moderate) 02/09/2019 R78.81 Bacteremia Mak Boswell M.D. 02/09/2019 A41.9 Sepsis, unspecified organism Iris Hopper D.O. 02/09/2019 R65.21 Severe sepsis with septic shock Iris Hopper D.O. 02/09/2019 N12 Tubulo-interstitial nephritis, not Iris Ward, D.O. specified as acute or chronic 02/09/2019 N13.30 Unspecified hydronephrosis Holli Ignacio.O. 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 nephropathy 11/27/2018 I25.10 Coronary atherosclerosis Noble Chen M.D. 11/27/2018 R07.89 Chest discomfort Noble Chen M.D. Plan of Treatment Future Appointment(s):11/17/2019 8:00 am - Nelson Vazquez MD at [facility]06/17/2019 8:00 am - Jigar Canales MD at [facility] Atesalidlt27/25/2020 11:20 am - Marco Carcamo MD at [facility] Internal Medicine - [address]/11/2019 9:30 am - Vinayak Martinez M.D. at [facility]06/02/2019 8:30 am - Joanne Campos DNP, RN, MANUAL WINDER-BC at [facility]05/19/2019 - Nelson Vazquez MDE11.22 Type 2 diabetes mellitus with diabetic chronic kidney diseaseNew Medication:Tradjenta 5 mg - 5mg every day in the morningFollow up:6 monthsInstructions:1. Increase glipizide to 5mg daily. 2. Start Tradjenta (linagliptin) 5mg daily in the morning. 3. Return in 3 month for repeat diabetes tests. 4. Your A1c is goal is 7.5% or less on the above medications. 5. Return in 6 months.I82.422 Acute embolism and thrombosis of left iliac vein Functional Status Description No Information Available Mental Status Description No Information Available Referrals Description No Information Available
--- OUTSIDE RECORDS SUMMARY | 2019-06-23 09:20 | XMS REPORT | Continuity of Care Document ---
:1945 External Reference #:[id number] Author Name Jigar Canales MD (transmitted by agent of provider Cee Zhang) Address [address] [address] Care Team Providers Name Role Phone Chuy Escalera MD - Endocrinology, Care Team Information Family Law Attorney Diabetes & Metabolism Prabha Washington MD - Internal Care Team Information Family Law Attorney [phone] Medicine Marco Carcamo MD - Hospitalist Care Team Information Family Law Attorney [phone] Problems Active Problems Provider Date Type 2 diabetes mellitus Kiran Davis, 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/2007 Martir,GELYP Neuralgia Neuritis & Radiculitis Kiran Davis, 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/2007 Unspecified Martir,FACP Lyme disease Kiran Davis, 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/2007 Martir,GELYP Pure hypercholesterolemia Kiran Davis, 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/2007 Martir,FACP 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, 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 Martir,FACP Anticoagulants 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 Kiran Davis, 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/2007 Encounter Martir,FACP Sleep apnea Kiran Davis, Onset: 06/18/2007 Martir,FACP Peripheral venous insufficiency Kiran Davis, Onset: 06/18/2007 Martir,FACP Diabetic polyneuropathy Kiran Davis, Onset: 10/07/2007 Martir,FACP 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 Kiran Davis, Onset: 06/17/2008 mellitus Martir,[facility] Hyperlipidemia Wojciech Jones M.D., [facility], Onset: 04/16/2013 [facility] Benign essential hypertension Wojciech Jones M.D., [facility], Onset: 04/16/2013 [facility] Chronic ischemic heart disease Wojciech Jones M.D., [facility], Onset: 04/16/2013 [facility] Essential hypertension Wojciech Jones M.D., [facility], Onset: 08/01/2015 [facility] Atherosclerotic heart disease of [place] Wojciech Jones M.D., [facility], 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 [facility] Obesity Wojciech Jones M.D., [facility], Onset: 06/18/2016 [facility] Localized, primary osteoarthritis Sofya Borrego M.D. Onset: 11/03/2018 Coronary atherosclerosis Noble Chen M.D. Onset: 11/11/2018 Social History Type Date Description Comments Sex Unknown Tobacco Use Start: Unknown Never Smoked Cigarettes ETOH Use consumes 1-2 glasses of wine per week Recreational Drug Use Never Used Drugs Tobacco Use Start: Unknown Patient has never smoked Smoking Status Reviewed: 05/18/19 Patient has never smoked Exercise Type/Frequency Exercises [...] Jones M.D., 11/14/2018 5mg Tablets every day [facility] Dermacea Gauze Roll Wrap foot bid [...] FSCAI pain, if no relief call 911 [employer] Starter Pack 1 by mouth twice a [...] Regadenoson, 0.1 MG Juan C Grey, DO [facility] 11/27/2018 Injection Technetium TC 99M Juan C Grey, DO [facility] 11/27/2018 Tetrofosmin, Per Unit Dose Up To 40 Millicuries Injection Technetium TC 99M Juan C Grey, DO [facility] 11/27/2018 Tetrofosmin, Per Unit Dose Up To 40 Millicuries Injection Depomedrol 40MG Sofya Borrego M.D. 11/03/2018 Injection Celestone 3 mg and 3mg Mela Novoa, 05/05/2014 Injection M.DYuniel Celestone 3 mg and 3mg Mela Novoa, 04/06/2014 Injection MYunielDYuniel Immunizations CPT Code Status Date Vaccine Lot # [id number] Given 02/23/2010 Influenza Virus 3Yrs & Over 87311 Given 02/15/2009 Influenza Virus Vaccine, Pandemic Formulation 47917 Given 02/15/2009 Influenza Virus Vaccine, Pandemic Formulation [id number] 70117 Given 02/15/2009 Administration Swine Flu Shot 29609 Given 03/18/2007 Influenza Virus 3Yrs & Over 88461 Given 03/18/2007 Influenza Virus 3Yrs & Over [id number] 03092 Given 02/21/2000 Influenza Virus 3Yrs & Over Vital Signs Date Vital Result Comment 05/18/2019 8:08am Height 71 inches 5'11" Weight 219.00 lb Heart Rate 68 /min BP Systolic Sitting 136 mmHg BP Diastolic Sitting 67 mmHg O2 % BldC Oximetry 95 % BMI (Body Mass Index) 30.5 kg/m2 04/22/2019 8:05am Height 70 inches 5'10" Weight 215.00 lb BMI (Body Mass Index) 30.8 kg/m2 Results Test Acquired Date Facility Test Result H/L Range Note Neph Routine 05/16/2019 [facility] Total Protein 29 mg/dL [address] [place] [address] [phone] Creatinine Random Urine 58.65 mg/dL CBC Auto 05/16/2019 [facility] White Blood 7.2 10^3/uL Normal 3.5-10.[address] [place] [address] [phone] Red Blood Count 3.80 10^6/uL Low 4.18-5.48 [...] Blood Cells % 0.0 Basic Metabolic 05/16/2019 [facility] Sodium 139 mmol/L Normal 135-[address] [place] [address] [phone] Potassium 4.8 mmol/L Normal 3.5-5.0 Chloride 108 mmol/L Normal 101-111 Co2 Carbon Dioxide 24 mmol/L Normal 22-32 Anion Gap 7 mmol/L Normal 2-11 Glucose 131 mg/dL High 70-100 Blood Urea Nitrogen 30 mg/dL High 6-24 Creatinine 1.61 mg/dL High 0.67-1.17 BUN/Creatinine Ratio 18.6 Normal 8-20 Calcium 9.1 mg/dL Normal 8.6-10.3 Egfr Non- 42.4 >60 Egfr 51.3 >60 1 Urinalysis Profile 05/16/2019 [facility] Urine Color Yellow [address] [place] [address] [phone] Urine Appearance Cloudy Urine Specific Atlantic 1.010 Normal 1.010-1.030 Urine pH 7.0 Normal [...] Present Abnormal Absent Urine Culture And 05/16/2019 [facility] Urine Culture SEE RESULT [address] [place] [address] [phone] Urine Culture And 04/21/2019 [facility] Urine Culture SEE RESULT [address] [place] [address] [phone] Laboratory test 04/21/2019 [facility] Ferritin 60.5 ng/mL Normal 24-[address] [place] [address] [phone] Iron & Iron 04/21/2019 [facility] Iron 38 g/dL Low 50-[address] [place] [address] [phone] Unsaturated Iron Binding < 394 g/dL Total Iron Binding Capacity 409 g/dL Normal 250-450 Transferrin 292 mg/dL Normal 203-362 % Iron Saturation 9 % Low 15-55 Laboratory test 04/21/2019 [facility] Albumin 4.5 g/dL Normal 3.2-5.[address] [place] [address] [phone] Urinalysis 04/21/2019 [facility] Urine Color Yellow Profile [address] [place] [address] [phone] Urine Appearance Cloudy Urine Specific Atlantic 1.010 Normal 1.010-1.030 Urine pH 6.0 Normal [...] Urine Bacteria Absent Absent Basic Metabolic 04/21/2019 [facility] Sodium 140 mmol/L Normal 135-[address] [place] [address] [phone] Potassium 4.7 mmol/L Normal 3.5-5.0 Chloride 111 mmol/L Normal 101-111 Co2 Carbon Dioxide 22 mmol/L Normal 22-32 Anion Gap 7 mmol/L Normal 2-11 Glucose 104 mg/dL High 70-100 Blood Urea Nitrogen 43 mg/dL High 6-24 Creatinine 1.81 mg/dL High 0.67-1.17 BUN/Creatinine Ratio 23.8 High 8-20 Calcium 9.0 mg/dL Normal 8.6-10.3 Egfr Non- 37.0 >60 Egfr 44.8 >60 5 CBC Auto 04/21/2019 [facility] White Blood 9.0 10^3/uL Normal 3.5-10.[address] [place] [address] [phone] Red Blood Count 3.49 10^6/uL Low 4.18-5.48 [...] Blood Cells % 0.0 Neph Routine 04/21/2019 [facility] Total Protein Random 33 mg/ dL [address] [place] [address] [phone] Creatinine Random Urine 50.15 mg/dL 7 Urine Culture And 03/24/2019 [facility] Urine Culture SEE RESULT [address] [place] [address] [phone] Laboratory test 03/24/2019 [facility] Ferritin 80.8 ng/mL Normal 24-[address] [place] [address] [phone] Iron & Iron 03/24/2019 [facility] Iron 57 g/dL Normal 50-[address] [place] [address] [phone] Unsaturated Iron Binding < 342 g/dL Total Iron Binding Capacity 357 g/dL Normal 250-450 Transferrin 255 mg/dL Normal 203-362 % Iron Saturation 16 % Normal 15-55 Laboratory test 03/24/2019 [facility] Albumin 4.0 g/dL Normal 3.2-5.[address] [place] [address] [phone] Urinalysis 03/24/2019 [facility] Urine Color Yellow [place] [address] [place] [address] [phone] Urine Appearance Cloudy Urine Specific Atlantic 1.010 Normal 1.010-1.030 Urine pH 6.0 Normal [...] Urine Bacteria Absent Absent Basic Metabolic 03/24/2019 [facility] Sodium 139 mmol/L Normal 135-[address] [place] [address] [phone] Potassium 5.0 mmol/L Normal 3.5-5.0 Chloride 111 mmol/L Normal 101-111 Co2 Carbon Dioxide 22 mmol/L Normal 22-32 Anion Gap 6 mmol/L Normal 2-11 Glucose 103 mg/dL High 70-100 Blood Urea Nitrogen 29 mg/dL High 6-24 Creatinine 1.88 mg/dL High 0.67-1.17 BUN/Creatinine Ratio 15.4 Normal 8-20 Calcium 8.6 mg/dL Normal 8.6-10.3 Egfr Non- 35.5 >60 Egfr 42.9 >60 10 CBC Auto 03/24/2019 [facility] White Blood 9.3 10^3/uL Normal 3.5-10.[address] [place] [address] [phone] Red Blood Count 3.00 10^6/uL Low 4.18-5.48 [...] Blood Cells % 0.1 Neph Routine 03/24/2019 [facility] Total Protein Random 27 mg/ dL [address] [place] [address] [phone] Creatinine Random Urine 60.28 mg/dL Urine Culture And 03/10/2019 [facility] Urine SEE RESULT 11 , [address] [place] [place] [address] [phone] Laboratory test 03/10/2019 [facility] Albumin 4.2 g/dL Normal 3.2- [address] 5[address]2 [place] [address] [phone] Basic Metabolic 03/10/2019 [facility] Sodium 139 mmol/L Normal 135- Panel [address] [place] [address] [phone] Potassium 4.3 mmol/L Normal 3.5-5.0 Chloride 113 mmol/L High 101-111 Co2 Carbon Dioxide 16 mmol/L Low 22-32 Anion Gap 10 mmol/L Normal 2-11 Glucose 128 mg/dL High 70-100 Blood Urea Nitrogen 50 mg/dL High 6-24 Creatinine 2.47 mg/dL High 0.67-1.17 BUN/Creatinine Ratio 20.2 High 8-20 Calcium 8.9 mg/dL Normal 8.6-10.3 Egfr Non- 25.9 >60 Egfr 31.3 >60 14 Laboratory test 03/10/2019 [facility] Creatinine Random 47.78 mg /dL [address] [place] [address] [phone] Total Protein Random Urine 48 mg/dL 16 CBC Auto 03/10/2019 [facility] White Blood 10.9 10^3/uL High 3.5-10.[address] [place] [address] [phone] Red Blood Count 3.10 10^6/uL Low 4.18-5.48 [...] Blood Cells % 0.0 Urinalysis Profile 03/10/2019 [facility] Urine Color Yellow [address] [facility] [place] [address] [phone] Urine Appearance Clear Urine Specific Atlantic 1.010 Normal 1.010-1.030 Urine pH 6.0 Normal [...] Urine Bacteria Absent Absent Laboratory test 03/04/2019 [facility] Ferritin 122.7 Normal 24 -336 18, 19 finding 101 [facility] ng/[place] [address] [phone] Iron & Iron 03/04/2019 [facility] Iron 56 g/dL Normal 50- 212 Binding 101 [facility] [address] [phone] Unsaturated Iron Binding < 332 g/dL Total Iron Binding Capacity 347 g/dL Normal 250-450 Transferrin 248 mg/dL Normal 203-362 % Iron Saturation 16 % Normal 15-55 Laboratory test 03/04/2019 [facility] Albumin 3.9 g/dL Normal 3.2-5.2 20 finding [address] [place] [address] [phone] Hemoglobin A1c (Glyco HGB) 7.5 % High 4.0-5.6 21 Basic Metabolic 03/04/2019 [facility] Sodium 140 mmol/L Normal 135-[address] [facility] [address] [phone] Potassium 5.0 mmol/L Normal 3.5-5.0 Chloride 116 mmol/L High 101-111 Co2 Carbon Dioxide 14 mmol/L Critical low 22-32 22 Anion Gap 10 mmol/L Normal 2-11 Glucose 118 mg/dL High 70-100 Blood Urea Nitrogen 73 mg/dL High 6-24 Creatinine 3.28 mg/dL High 0.67-1.17 BUN/Creatinine Ratio 22.3 High 8-20 Calcium 8.8 mg/dL Normal 8.6-10.3 Egfr Non- 18.6 >60 Egfr 22.6 >60 23 CBC Auto 03/04/2019 [facility] White Blood 10.8 10^3/uL Normal 3.5-10.[address] [place] [address] [phone] Red Blood Count 3.37 10^6/uL Low 4.18-5.48 [...] Cells % 0.0 Urine Culture And 03/04/2019 [facility] Urine Culture SEE RESULT [address] [place] [address] [phone] Urinalysis Profile 03/04/2019 [facility] Urine Color Yellow [address] [place] [address] [phone] Urine Appearance Cloudy Urine Specific Atlantic 1.011 Normal 1.010-1.030 Urine pH 6.0 Normal 5-9 Urine Urobilinogen Negative Negative Urine Ketones Negative Negative Urine Protein Negative Negative Urine Leukocytes 3+ Abnormal Negative Urine Blood 2+ Abnormal Negative Urine Nitrite Negative Negative Urine Bilirubin Negative Negative Urine Glucose Negative Negative Urine White Blood Cell 3+(>20/hpf) Abnormal Absent Urine Red Blood Cell 3+(>10/hpf) Abnormal Absent Urine Bacteria Absent Absent Neph Routine 03/04/2019 [facility] Total Protein Random 69 mg/ dL [address] [place] [address] [phone] Creatinine Random Urine 72.89 mg/dL 26 Comp Metabolic 03/04/2019 [facility] Sodium 142 mmol/L Normal 135-[address] [place] [address] [phone] Potassium 4.6 mmol/L Normal 3.5-5.0 Co2 Carbon [...] 7 mmol/L Normal 2-11 CBC Auto 03/04/2019 [facility] White Blood 9.5 10^3/uL Normal 3.5-10.[address] [place] [address] [phone] Red Blood Count 3.07 10^6/uL Low 4.18-5.48 [...] Blood Cells % 0.0 Urinalysis Profile 03/04/2019 [facility] Urine Color Yellow [address] [place] [address] [phone] Urine Appearance Clear Urine Specific Atlantic 1.010 Normal 1.010-1.030 Urine pH 7.0 Normal 5-9 Urine Urobilinogen Negative Negative Urine Ketones Negative Negative Urine Protein Negative Negative Urine Leukocytes Trace Abnormal Negative Urine Blood Negative Negative Urine Nitrite Negative Negative Urine Bilirubin Negative Negative Urine Glucose Negative Negative Urine White Blood Cell 1+(6-10/hpf) Abnormal Absent Urine Red Blood Cell Absent Absent Urine Bacteria Absent Absent Basic Metabolic 03/04/2019 [facility] Sodium 142 mmol/L Normal 135-[address] [place] [address] [phone] Potassium 4.5 mmol/L Normal 3.5-5.0 Glucose 125 mg/dL High 70-100 Blood Urea Nitrogen 72 mg/dL High 6-24 Creatinine 3.24 mg/dL High 0.67-1.17 BUN/Creatinine Ratio 22.2 High 8-20 Calcium 8.5 mg/dL Low 8.6-10.3 Egfr Non- 18.9 >60 Egfr 22.9 >60 28 Chloride 118 mmol/L High 101-111 Co2 Carbon Dioxide 14 mmol/L Critical low 22-32 29 Anion Gap 10 mmol/L Normal 2-11 Xray 12/25/2018 [facility] SP Lumbarsacral 4+ VWS <pending> [address] [place] [address] [phone] MRI Lumbar Spine W/O <pending> Urine Culture And 12/16/2018 [facility] Urine Culture SEE RESULT [address] [place] [address] [phone] Laboratory test 12/16/2018 [facility] Creatinine 83.97 mg/dL finding [address] [place] [place] [address] [phone] Urinalysis Profile 12/16/2018 [facility] Urine Color Yellow [address] [place] [address] [phone] Urine Appearance Cloudy Urine Specific Atlantic 1.011 Normal 1.010-1.030 Urine pH 6.0 Normal [...] Bacteria 1+ Abnormal Absent Laboratory test 12/16/2018 [facility] Total Protein 57 mg/dL finding [address] [place] [address] [phone] CBC Auto Diff 12/16/2018 [facility] White Blood 7.7 10^3/uL Normal 3.5-[address] Count 0.8 [place] [address] [phone] Red Blood Count 3.90 10^6/uL Low 4.18-5.48 [...] Blood Cells % 0.0 Basic Metabolic 12/16/2018 [facility] Sodium 141 mmol/L Normal 135-[address] [place] [address] [phone] Potassium 4.9 mmol/L Normal 3.5-5.0 Chloride 111 mmol/L Normal 101-111 Co2 Carbon Dioxide 23 mmol/L Normal 22-32 Anion Gap 7 mmol/L Normal 2-11 Glucose 134 mg/dL High 70-100 Blood Urea Nitrogen 36 mg/dL High 6-24 Creatinine 1.74 mg/dL High 0.67-1.17 BUN/Creatinine Ratio 20.7 High 8-20 Calcium 9.6 mg/dL Normal 8.6-10.3 Egfr Non- 38.8 >60 Egfr 46.9 >60 32 Urine Microalbumin 12/16/2018 [facility] Ur Microalbumin 109.3 mg/L Random [address] (mg/L) [place] [address] [phone] Urine Creatinine 83.70 mg/dL Urine Microalbumin/Creatinine 130.5 High <31 Lipid Profile 12/16/2018 [facility] Triglycerides 141 mg/dL 33 (Trig/Chol/HDL) [address] [place] [address] [phone] Cholesterol 144 mg/dL 34 HDL Cholesterol 38.3 mg/dL 35 LDL Cholesterol 78 mg/dL 36 Comp Metabolic 12/16/2018 [facility] Sodium 141 mmol/L Normal 135-[address] [place] [address] [phone] Potassium 4.9 mmol/L Normal 3.5-5.0 Chloride 111 [...] Egfr 46.9 >60 37 Laboratory test 12/16/2018 [facility] Thyroxine 6.06 g/dL Low 6.09-12.[address] [place] [address] [phone] TSH (Thyroid Stim Horm) 1.41 mcIU/mL Normal 0.34-5.60 Vitamin B12 351 pg/mL Normal 180-914 38 Lipid Profile 11/22/2018 [facility] Triglycerides 89 mg/dL 39 (Trig/Chol/HDL) [address] [place] [address] [phone] Cholesterol 135 mg/dL 40 HDL Cholesterol 41.3 mg/dL 41 LDL Cholesterol 76 mg/dL 42 CBC Auto 11/22/2018 [facility] White Blood 9.1 10^3/uL Normal 3.5-10.[address] [place] [address] [phone] Red Blood Count 3.94 10^6/uL Low 4.18-5.48 [...] Blood Cells % 0.0 Comp Metabolic 11/22/2018 [facility] Sodium 140 mmol/L Normal 135-[address] [place] [address] [phone] Chloride 111 mmol/L Normal 101-111 Co2 Carbon [...] 6 mmol/L Normal 2-11 Laboratory test 11/22/2018 [facility] Hemoglobin A1c 7.1 % High 4.0-5.[address] (Glyco HGB) [place] [address] [phone] TSH (Thyroid Stim Horm) 1.22 mcIU/mL Normal 0.34-5.60 Total Protein 24HR 11/22/2018 [facility] Urine Collection Time 24 hr Urine [address] [place] [address] [phone] Urine Total Volume 2350 mL Urine TP Concentration 43 mg/dL Urine Total Protein/24HR 1010 mg/24Hr High 0-165 Creatinine Clearance 11/22/2018 [facility] Urine Collection [address] [place] [address] [phone] Urine Total Volume 2350 mL Creatinine, Serum 1.73 mg/dL High 0.51-0.95 Urine Creatinine Concentration 68.77 mg/dL Creatinine Clearance 65 mL/min Low 97-137 Laboratory test 11/22/2018 [facility] Fructosamine 253 mcmol/L 200 - [address] [place] [address] [phone] Vitamin B12 327 pg/mL Normal 180-914 46 Vitamin D Total 25(Oh) 25.1 ng/mL Normal 20-50 47 Lyme Screen W/ Reflex To WB Negative Negative Tick-Borne 11/22/2018 [facility] Anaplasma <1:64 <1:64 48 Disease AB [address] [place] [address] [phone] Babesiosis Evaluation <1:64 titer <1:64 49 Ehrlichia chaffeensis IgG AB <1:64 titer <1:64 50 Lyme Disease Serology Negative Negative 51 Lipid Panel - 11/22/2018 [facility] Creatine 94 U/L Normal 10- [address] Kinase(CK) [place] [address] [phone] 1 Because ethnic data is not always [...] (or dialysis) 2 SEE RESULT BELOW Name: ADDISDARIO : [address]: Jigar Canales MD Acct: [id number] Unit: [id number] AGE: 73 Location: LAB Re05/16/19 SEX: M Status: REG REF SPEC: [id number] JAROD: 05/16/[address]: Jigar Canales MD REQ: [id number] RECD: 05/16/19 STATUS: COMP _ SOURCE: URINE SPDESC: ORDERED: Urine Culture Procedure Result Reported Site Urine Culture Final 05/18/19741 ML Organism 1 ENTEROCOCCUS FAECALIS Cunningham Count >100,000 (Many) CFU/ML Organism 2 NORMAL CADENCE Cunningham Count 10-25,000 (Moderate) CFU/ML 1. ENTEROCOCCUS FAECALIS M.I.C. RX --------- ------ Ampicillin <=2 S Penicillin 4 S Ciprofloxacin <=0.5 S Gentamicin High Level S Levofloxacin 1 S Nitrofurantoin <=16 S * Quinupristin/Dalfopristin 8 R * Streptomycin High Level S Tetracycline >=16 R Tigecycline <=0.12 S Vancomycin 1 S Imipenem-Deduced S * Ampicillin/Sulbactam-Deduced S CONTINUED ON NEXT PAGE DEPARTMENT OF PATHOLOGY, [address] [place] [address] Jorge Luis Davis M.D. Director [facility] # [id number] Specimen: [id number] Collected: 05/16/19 Received: 05/16/19 (Continued) Procedure Result Reported Site Urine Culture Final (continued) * These antibiotics are not available in the [facility] Formulary Contact the Microbiology Department for any additional antibiotic reporting. * ML - Main Lab . END OF REPORT DEPARTMENT OF PATHOLOGY, [address] [place] [address] Jorge Luis Davis M.D. Director [facility] # [id number] 3 SEE RESULT BELOW Name: MANCINI,DARIO : [address]: Jigar Canales MD Acct: [id number] Unit: [id number] AGE: 73 Location: LAB Re04/21/19 SEX: M Status: REG REF SPEC: [id number] JAROD: 04/21/[address]: Jigar Canales MD REQ: [id number] RECD: 04/21/19 STATUS: COMP _ SOURCE: URINE SPDESC: ORDERED: Urine Culture Procedure Result Reported Site Urine Culture Final 04/22/19- 1440 ML No growth of clinically significant organisms * ML - Main Lab . END OF REPORT DEPARTMENT OF PATHOLOGY, [address] [place] [address] Jorge Luis Davis M.D. Director [facility] # [id number] 4 *Ascorbic acid is present which may [...] [address]: Jigar Canales MD Acct: [id number] Unit: [id number] AGE: 73 Location: LAB Re03/24/19 SEX: M Status: REG REF SPEC: [id number] JAROD: 03/24/[address]: Jigar Canales MD REQ: [id number] RECD: 03/24/19 STATUS: COMP _ SOURCE: URINE SPDESC: ORDERED: Urine Culture Procedure Result Reported Site Urine Culture Final 03/25/19- 1459 ML No Growth (<1,000 CFU/mL) * ML - Main Lab . END OF REPORT DEPARTMENT OF PATHOLOGY, [address] [place] [address] Jorge Luis Davis M.D. Director [facility] # [id number] 9 *Ascorbic acid is present which may [...] 12 SEE RESULT BELOW Name: DARIO MANCINI Luis Miguel : [address]: Jigar Canales MD Acct: [id number] Unit: [id number] AGE: 73 Location: LAB Re03/10/19 SEX: M Status: REG REF SPEC: [id number] JAROD: 03/10/[address]: Jigar Canales MD REQ: [id number] RECD: 03/10/19 STATUS: COMP _ SOURCE: URINE SPDESC: ORDERED: Urine Culture Procedure Result Reported Site Urine Culture Final 03/11/19- 1443 ML No Growth (<1,000 CFU/mL) * ML - Main Lab . END OF REPORT DEPARTMENT OF PATHOLOGY, [address] [place] [address] Jorge Luis Davis M.D. Director [facility] # [id number] 13 Next week. 14 Because ethnic data [...] in selective patients <6.0%. Please refer to [place] [employer] diabetic care guidelines for further information. 22 Critical Result CO2:14 Called to REMBERTO Bello at: 10:23:35 by:[id number] Read back by:REMBERTO Bello 23 Because ethnic [...] [address]: Jigar Canales MD Acct: [id number] Unit: [id number] AGE: 73 Location: LAB Re03/04/19 SEX: M Status: REG REF SPEC: [id number] JAROD: 03/04/19 [facility] DR: Jigar Canales MD REQ: [id number] RECD: 03/04/19-1011 STATUS: COMP [facility] DR: Prabha [place] MD PC _ SOURCE: URINE SPDESC: ORDERED: Urine Culture Procedure Result Reported Site Urine Culture Final 03/05/19- 1548 ML Organism 1 NANCY ALBICANS Cunningham Count 25-50,000 (Moderate) CFU/ML * ML - Main Lab . END OF REPORT DEPARTMENT OF PATHOLOGY, [address] [place] [address] Jorge Luis Davis M.D. Director [facility] # [id number] 25 Today 26 Today 27 Because ethnic data is not [...] dialysis) 29 Critical Result CO2:14 Called to [id number] at: 19:35:48 by:[id number] Read back by:[email or web address] 30 SEE RESULT BELOW Name: DARIO MANCIIN : [address]: Prabha Washington MD Acct: [id number] Unit: [id number] AGE: 73 Location: LAB Re12/16/18 SEX: M Status: REG REF SPEC: [id number] JAROD: 12/16/18-1226 [facility] DR: Jigar Canales MD REQ: [id number] RECD: 12/16/18-1301 STATUS: [facility] DR: Prabha [place] MD PC _ SOURCE: URINE SPDESC: ORDERED: Urine Culture Procedure Result Reported Site Urine Culture Final 12/18/18- 0842 ML Organism 1 CITROBACTER FREUNDII Cunningham Count 25-50,000 (Moderate) CFU/ML 1. CITROBACTER FREUNDII [...] . END OF REPORT DEPARTMENT OF PATHOLOGY, [address] [place] [address] Jorge Luis Davis M.D. Director [facility] # [id number] 31 *Ascorbic acid is present which may [...] in selective patients <6.0%. Please refer to [place] [employer] diabetic care guidelines for further information. 45 Test Performed by: [address] [address] 46 Normal Range 180 to 914 Indeterminate Range 145 to 180 Deficient Range <145 47 Total 25-Hydroxyvitamin D2 and D3 (25-OH-VitD) <10 ng/mL (severe deficiency) 10-19 ng/mL (mild to moderate deficiency) 20-50 ng/mL (optimum levels) 51-80 ng/mL (increased risk of hypercalciuria) >80 ng/mL (toxicity possible) 48 ADDITIONAL INFORMATION This test was developed using an analyte specific reagent. Its performance characteristics were determined by [facility] in a manner consistent with CLIA requirements. This test has not been cleared or approved by the U.S. Food and Drug Administration. 49 ADDITIONAL INFORMATION This test was developed using an analyte specific reagent. Its performance characteristics were determined by [facility] in a manner consistent with CLIA requirements. This test has not been cleared or approved by the U.S. Food and Drug Administration. 50 ADDITIONAL INFORMATION This test was developed using an analyte specific reagent. Its performance characteristics were determined by [facility] in a manner consistent with CLIA requirements. [...] 2-4 weeks. Test Performed by: [facility] [address] [place] [address] Procedures Date Code Description Status 02/09/2019 48003 ECHO Transthorasic Realtime 2D W Doppler & Color Flow Completed Hosp 11/27/2018 03619 Stress Test Completed 11/27/2018 76517 Myocardial Perfusion Imaging Tomographic (Spect) Completed Multiple Studies 05/15/2010 [id number] Diabetic Foot Exam Completed 04/28/2010 [id number] Diabetic Foot Exam Completed 02/28/2010 [id number] Diabetic Retinal Eye Exam Completed 04/01/2008 [id number] Diabetic Retinal Eye Exam Completed 02/26/2008 [id number] Diabetic Foot Exam Completed 02/05/2008 [id number] Diabetic Foot Exam Completed 02/25/2007 [id number] Diabetic Retinal Eye Exam Completed Medical Devices Description No Information Available Encounters Type Date Location Provider Dx Diagnosis Office Visit 04/22/2019 [facility] Jigar Canales, E11.22 Type 2 diabetes 8:00a MD mellitus w diabetic chronic kidney disease N18.3 Chronic kidney disease, stage 3 (moderate) N17.9 Acute kidney failure, unspecified Office Visit 03/25/2019 8:00a [facility] Neph[facility] King N17.9 Acute kidney MD Parker failure, unspecified I12.9 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/unsp [facility] kdny E11.22 Type 2 diabetes mellitus w diabetic chronic kidney disease N18.3 Chronic kidney disease, stage 3 (moderate) Office Visit 03/11/2019 8:00a [facility] King N17.9 Acute kidney MD Parker failure, unspecified I12.9 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/unsp [facility] kdny E11.22 Type 2 diabetes mellitus w diabetic chronic kidney disease N18.3 Chronic kidney disease, stage 3 (moderate) E11.40 Type 2 diabetes mellitus with diabetic neuropathy, unsp N39.0 Urinary tract infection, site not specified Office Visit 03/04/2019 8:00a [facility] Nephneda King N17.9 Acute kidney MD Parker [...] infection, site not specified Office Visit 02/12/2019 [facility] Sue A40.1 Sepsis due to 9:53a Assockeri, PA-C streptococcus, Hospitalists group B R65.21 Severe sepsis with septic shock E11.40 Type 2 diabetes mellitus with diabetic neuropathy, unsp E11.22 Type 2 diabetes mellitus w diabetic chronic kidney disease N18.3 Chronic kidney disease, stage 3 (moderate) I25.10 Athscl heart disease of [place] coronary artery w/o ang pctrs Office Visit 02/11/2019 [facility] Ada E11.40 Type 2 diabetes 9:51a Asskeri pleitez MD mellitus with Hospitalists diabetic neuropathy, unsp 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 mellitus with Hospitalists diabetic neuropathy, unsp E11.22 Type 2 diabetes mellitus w diabetic chronic kidney disease N12 Tubulo-interstitial nephritis, not spcf as acute or chronic N18.3 Chronic kidney disease, stage 3 (moderate) Office Visit 02/09/2019 9:50a [facility] Iris A41.9 Sepsis, Assoc,keri Hopper, D.O. unspecified Hospitalists organism R65.21 Severe sepsis with septic shock N12 Tubulo-interstitial nephritis, not spcf as acute or chronic N13.30 Unspecified hydronephrosis E11.40 Type 2 diabetes mellitus with diabetic neuropathy, unsp Office Visit 02/08/2019 [facility] Milly A41.9 Sepsis, 9:50a Assoc,keri Michaels MD unspecified Hospitalists organism R65.21 Severe sepsis with septic shock N12 Tubulo-interstitial nephritis, not spcf as acute or chronic N13.30 Unspecified hydronephrosis E11.9 Type 2 diabetes mellitus without complications Office Visit 02/07/2019 [facility] Bethany Saravia, A41.9 Sepsis, 9:50a keri Maria M.D. 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 M86.9 Osteomyelitis, unspecified E78.00 Pure hypercholesterolemia, unspecified Assessments Date Code Description Provider 05/18/2019 N18.3 Chronic kidney disease, stage 3 [...] A40.1 Sepsis due to streptococcus, group B KATIE Alcaraz-C 02/12/2019 R65.21 Severe sepsis with septic shock Sue Sarah PA-C 02/12/2019 E11.40 Type 2 diabetes mellitus with diabetic KATIE Alcaraz neuropathy, unspecified 02/12/2019 E11.22 Type 2 diabetes mellitus with diabetic KATIE Alcaraz chronic kidney disease 02/12/2019 N18.3 Chronic kidney disease, stage 3 Sue Sarah PA-C (moderate) 02/12/2019 I25.10 Atherosclerotic heart disease of [place] Sue Sarah PA-C coronary artery without angina pectoris 02/11/2019 E11.40 Type 2 diabetes mellitus with diabetic Ada Santos MD neuropathy, unspecified 02/11/2019 E11.22 Type 2 diabetes mellitus with diabetic Ada Santos MD chronic kidney disease 02/11/2019 I25.10 Atherosclerotic heart disease of [place] Ada Santos MD coronary artery without angina [...] MD 11/27/2018 I25.10 Atherosclerotic heart disease of [place] Juan C Grey, DO [facility] coronary artery without angina pectoris 11/27/2018 E11.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 nephropathy 11/27/2018 I25.10 Coronary atherosclerosis Noble Chen M.D. 11/27/2018 R07.89 Chest discomfort Noble Chen M.D. Plan of Treatment Future Appointment(s):06/17/2019 8:00 am - Jigar Canales MD at [facility] [place]/25/2020 11:20 am - Marco Carcamo MD at [facility] - [address]/11/2019 9:30 am - Vinayak Martinez M.D. at [facility]06/02/2019 8:30 am - Joanne Campos DNP, RN, [employer]- at [facility]05/18/2019 - Jigar Canales MDN18.3 Chronic kidney disease, stage 3 (moderate)Follow up:1 month f/u with labsI82.402 Acute embolism and thrombosis of unspecified deep veins of left lower wauhclntpG23.22 Type 2 diabetes mellitus with diabetic chronic kidney muxtcuxL22.9 Acute kidney failure, unspecified Functional Status Description No Information Available Mental Status Description No Information Available Referrals Description No Information Available
[2019-06-23 10:20] LABS: Influenza A Molecular Negative (Negative); Influenza B Molecular Negative (Negative)
--- NOTE | 2019-06-23 10:40 | ED ---
Influenza-Like Illness - HPI Summary HPI Summary: 73 year old M presenting to [facility] with a chief complaint of shaking, a fever, and body aches since last night. The patient rates the pain 2/10 in severity. Symptoms aggravated by nothing. Symptoms alleviated by nothing. Patient denies any sore throat. The patient was seen here previously for sepsis 2/2 pyelonephritis in January 2019. Urine culture grew group B strep at that time, patient was admitted to the hospital and eventually discharged home on Augmentin. He reports having a urostomy secondary to prostate cancer, follows w urology at [facility]. Other UC have grown E Coli most recently on 06/14 sensitive to penicillins. Medication list reviewed. Allergy list reviewed. - History of Current Complaint Chief Complaint: EDFluSymptoms Time Seen by Provider: 06/23/19 10:01 Hx Obtained From: Patient Onset/Duration: Lasting Hours Severity: Mild Associated Signs & Symptoms: Negative - Sore throat, Fever, Myalgia - Allergy/Home Medications Allergies/Adverse Reactions: Allergies Allergy/AdvReac Type Severity Reaction Status Date / Time Adhesive Tape [Silk Tape] Allergy Unknown Verified 06/23/19 09:12 Reaction Details latex Allergy Swelling Verified 06/23/19 09:12 Home Medications: Home Medications glipiZIDE TAB* [Glucotrol TAB*] 5 mg PO QAM 05/21/13 [History Confirmed 06/23/19 ] Budesonide/Formote 160/4.5(NF) [Symbicort 160/4.5 (NF)] 1 - 2 puff INH BID 06/24 [History Confirmed 06/23/19] Fluticasone NASAL SPRAY 50MCG* [Flonase NASAL SPRAY 50MCG*] 1 - 2 spray BOTH NARES BID 06/24/17 [History Confirmed 06/23/19] Montelukast Sodium TAB* [Singulair 10 MG TAB*] 10 mg PO DAILY 06/24/17 [History Confirmed 06/23/19] Aspirin EC TAB* [Ecotrin EC Low Dose 81 MG*] 162 mg PO DAILY 04/15/18 [History Confirmed 06/23/19] Famotidine TAB* [Pepcid 20 MG TAB*] 20 mg PO BID 04/15/18 [History Confirmed 02/01] Nitroglycerin TAB 0.4 MG* 0.4 mg SL Q5M PRN 04/15/18 [History Confirmed 06/23/19 ] Ammonium Lactate 12% [Lac-Hydrin 12 %] 1 applic TOPICAL DAILY 02/06/19 [History Confirmed 06/23/19] Cholecalciferol (Vitamin D3) [Vitamin D3] 1,000 unit PO DAILY 02/06/19 [History Confirmed 06/23/19] Gabapentin CAP(*) [Neurontin 300 CAP(*)] 150 mg PO BID 02/06/19 [History Confirmed 06/23/19] Lactobacillus Acidophilus [Probiotic Acidophilus] 1 - 2 tab PO DAILY 02/06/19 [ History Confirmed 06/23/19] Lisinopril TAB* [Prinivil TAB 5 MG*] 5 mg PO QAM 02/06/19 [History Confirmed 02/01] Melatonin 10 mg PO BEDTIME 02/06/19 [History Confirmed 06/23/19] Metoprolol Succinate XL TAB* [Toprol XL TAB*] 25 mg PO DAILY 02/06/19 [History Confirmed 06/23/19] Multivitamins/Minerals TAB* [Theragran/minerals TAB*] 1 tab PO DAILY 02/06/19 [ History Confirmed 06/23/19] Pravastatin (NF) [Pravachol (NF)] 40 mg PO QPM 02/06/19 [History Confirmed 06/22] Albuterol Sulfate [Proair Digihaler] 90 mcg IH Q6H PRN 05/13/19 [History Confirmed 06/23/19] Apixaban* [Eliquis*] 10 mg PO BID #60 tab 05/13/19 [Rx Confirmed 06/23/19] Cranberry Conc/Ascorbic Acid [Cranberry Concentrate] 1 cap PO DAILY 05/13/19 [ History Confirmed 06/23/19] Magnesium Glycinate [Mag Glycinate] 100 mg PO BID 05/13/19 [History Confirmed ] Magnesium l-Threon/Niacinamide [Mag-Amide Sr 500 mg-250 mg Tab] 2 each PO QPM [History Confirmed 06/23/19] Resveratrol/Quercetin [Resveratrol Plus] 1 tab PO BID 05/13/19 [History Confirmed 06/23/19] Sodium Bicarbonate (ANTACID)* 1,300 mg PO BID 05/13/19 [History Confirmed ] Vitamin B Complex [Ultra B-100 Complex] 1 each PO DAILY 05/13/19 [History Confirmed 06/23/19] Amoxicillin/Clavulanate TAB* [Augmentin TAB 875*] 875 mg PO BID 10 Days #20 tab 06/23/19 [Rx] Bismuth Subsalicylate [Pepto Bismol] 262 mg PO DAILY 06/23/19 [History Confirmed 06/23/19] Ferrous Sulfate TAB* 325 mg PO .3X/WEEK 06/23/19 [History Confirmed 06/23/19] Lidocaine PATCH 5%* [Lidoderm 5% Patch*] 1 patch TRANSDERM DAILY 06/23/19 [ History Confirmed 06/23/19] Linagliptin (NF) [Tradjenta (NF)] 5 mg PO DAILY 06/23/19 [History Confirmed 02/01] Methylcobalamine (NF) [B-12] 1,000 mcg SL DAILY 06/23/19 [History Confirmed 02/01] Pterostilbene 2 tab PO DAILY 06/23/19 [History Confirmed 06/23/19] PMH/Surg Hx/FS Hx/Imm Hx Endocrine/Hematology History: Reports: Hx Anticoagulant Therapy, Hx Diabetes Denies: Hx Sickle Cell Disease, Hx Thyroid Disease, Hx Anemia, Hx Unexplained Bleeding Cardiovascular History: Reports: Hx Cardiomegaly, Hx Coronary Artery Disease, Hx Deep Vein Thrombosis, Hx Hypercholesterolemia, Hx Myocardial Infarction, Hx Peripheral Vascular Disease, Other Cardiovascular Problems/Disorders - cardiomegaly , Denies: Hx Aneurysm, Hx Angina, Hx Angioplasty, Hx Auto Implanted Cardiovert Defib, Hx Cardiac Arrest, Hx Congenital Heart Disease, Hx Congestive Heart Failure, Hx Embolism, Hx Hypotension, Hx Hypertension, Hx Pacemaker/ICD, Hx Rheumatic Fever, Hx Syncope, Hx Valvular Heart Disease Respiratory History: Reports: Hx Asthma, Hx Chronic Bronchitis, Hx Pneumonia, Hx Seasonal Allergies, Hx Sleep Apnea, Other Respiratory Problems/Disorders - FREQUENT PNEUMONIA Denies: Hx Chronic Obstructive Pulmonary Disease (COPD), Hx Pulmonary Embolism GI History: Reports: Other GI Disorders - 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 Denies: Hx Cirrhosis, Hx Crohn's Disease, Hx Diverticulosis, Hx Gall Bladder Disease, Hx Gastroesophageal Reflux Disease, Hx Gastrointestinal Bleed, Hx Hiatal Hernia, Hx Irritable Bowel, Hx Jaundice, Hx Obstructive Bowel, Hx Ileostomy, Hx Pyloric Stenosis, Hx Ulcer History: Reports: Hx Renal Disease - CHRONIC RENAL DISEASE, Other Problems /Disorders - Continent urinary diversion at [facility] Denies: Hx Acute Renal Failure, Hx Benign Prostatic Hyperplasia, Hx Chronic Renal Failure, Hx Dialysis, Hx Kidney Infection, Hx Kidney Stones Musculoskeletal History: Reports: Hx Arthritis, Hx Back Problems, Hx Bursitis - KNEE, Other Musculoskeletal History - osteomyleitis Denies: Hx Gout, Hx Osteoporosis, Hx Scoliosis Sensory History: Reports: Hx Contacts or Glasses Denies: Hx Legally Blind, Hx Deafness, Hx Hearing Aid Opthamlomology History: Reports: Hx Contacts or Glasses Denies: Hx Legally Blind Neurological History: Reports: Hx Nerve Disease - diabetic neuropathy to LE, Other Neuro Impairments/Disorders - neuropathy to bilat feet Denies: Hx Seizures, Hx Spinal Cord Injury, Hx Transient Ischemic Attacks ( TIA) Psychiatric History: Denies: Hx Panic Disorder - Cancer History Cancer Type, Location and Year: prostate cancer Hx Chemotherapy: No Hx Radiation Therapy: Yes - Proton Radiation Hx Palliative Cancer Treatment: No - Surgical History Surgery Procedure, Year, and Place: appendix, tonsils, prostatectomy, urinary incontinence diversion 2002, rt foot /Left foot SURGERIES NOW TOTALLY 18, hernia repair,cardiac stent 04/08/13. urostomy Hx Anesthesia Reactions: No - Immunization History Date of Influenza Vaccine: 11/2016 Infectious Disease History: No Infectious Disease History: Denies: Hx Clostridium Difficile, Hx Hepatitis, Hx Human Immunodeficiency Virus (HIV), Hx of Known/Suspected MRSA, Hx Shingles, Hx Tuberculosis, Hx Known/ Suspected VRE, Hx Known/Suspected VRSA, History Other Infectious Disease, Traveled Outside the [place] in Last 30 Days - Family History Known Family History: Positive: Blood Disorder - FMHx of blood clots , Other - neg: anaesthesia reaction - Social History Alcohol Use: Occasionally Alcohol Amount: 1x week Hx Substance Use: No Substance Use Type: Reports: None Hx Tobacco Use: No Smoking Status (MU): Never Smoked Tobacco Have You Smoked in the Last Year: No Review of Systems Constitutional: Other - Shaking Positive: Fever Negative: Sore Throat Positive: Myalgia All Other Systems Reviewed And Are Negative: Yes Physical Exam - Summary Physical Exam Summary: Constitutional: Well-developed, Well-nourished, Alert. (-) Distressed Skin: Warm, Dry HENT: Normocephalic; Atraumatic Eyes: Conjunctiva normal Neck: Musculoskeletal ROM normal neck. (-) JVD, (-) Stridor, (-) Nuchal rigidity Cardio: Rhythm regular, rate normal, Heart sounds normal; Intact distal pulses; Radial pulses are 2+ and symmetric. (-) Murmur Pulmonary/Chest wall: Effort normal. (-) Respiratory distress, (-) Wheezes, (-) Rales Abd: Soft, (-) tenderness, (-) Distension, (-) Guarding, (-) Rebound; right sided urostomy. Musculoskeletal: (-) Edema Lymph: (-) Cervical adenopathy Neuro: Alert, Oriented x3 Psych: Mood and affect Normal Triage Information Reviewed: Yes Vital Signs On Initial Exam: Initial Vitals Temp Pulse Resp BP Pulse Ox 99.5 F 99 16 149/89 98 06/23/19 09:08 06/23/19 09:08 06/23/19 09:08 06/23/19 09:08 06/23/19 09:08 Vital Signs Reviewed: Yes Procedures - Sedation Patient Received Moderate/Deep Sedation with Procedure: No Diagnostics - Vital Signs Vital Signs Temp Pulse Resp BP Pulse Ox 06/23/19 10:10 95 142/78 93 06/23/19 10:05 97 95 06/23/19 09:08 99.5 F 99 16 149/89 98 - Laboratory Lab Results: Lab Results 06/23/19 Range/Units 09:55 Influenza A (Rapid) Negative (Negative) Influenza B (Rapid) Negative (Negative) Result Diagrams: 06/23/19 10:32 06/23/19 10:32 Lab Statement: Any lab studies that have been ordered have been reviewed, and results considered in the medical decision making process. - Radiology Chest x-ray Radiology Interpretation Completed By: Radiologist Summary of Radiographic Findings: NO ACTIVE CARDIOPULMONARY DISEASE. ED physician has reviewed this report. Re-Evaluation - Re-Evaluation First Eval Re-Evaluation Time: 12:00 Change: Improved - feeling well. Plan for augmentin, follow up w urology at [facility]. Flu Symptom Course/Dx - Course Course Of Treatment: 73 y/o male w hx urostomy p/w myalgias, fever at home. - VSS NAD. Well appearing. Neg flu and CXR. No leukocytosis on labs. - UA w bacteria, recent UC w E Coli sensitive to penicillins. UC when admitted grew group B strep and was placed on augmentin. Will place on augmentin here, given sensitivity to penicillins and recent ID recommendations based of group B strep. - will f/u w urology at [facility]. - Diagnoses Provider Diagnoses: UTI (urinary tract infection) - Physician Notifications Discussed Care Of Patient With: Tu Escobar Time Discussed With Above Provider: 12:07 - Spoke with Dr. Escobar who recommends a prescription for augmentin for 10 days with follow up with his urologist Dr. Calderon at [facility]. Discharge ED - Sign-Out/Discharge Documenting (check all that apply): Patient Departure - Discharge Plan Condition: Stable Disposition: HOME Prescriptions: Amoxicillin/Clavulanate TAB* [Augmentin TAB 875*] 875 mg PO BID 10 Days #20 tab Patient Education Materials: Urinary Tract Infection in Men (ED) Referrals: Marco Carcamo MD [Primary Care Provider] - Additional Instructions: You were seen in the emergency department for chills. Your lab work shows urinary tract infection. Please of Augmentin twice a day for 10 days. Please stop with your urologist, Dr. Calderon at [facility] urolog. If any studies were not completed at the time of discharge you will be called with the relevant results. Please follow up with your primary care doctor in next 2-3 days and return to emergency department for continued fevers, not feeling well, worsening pain, worsening or concerning symptoms. It was a pleasure taking care of you today. - Billing Disposition and Condition Condition: STABLE Disposition: Home - Attestation Statements Document Initiated by Elzae: Yes Documenting Scribe: Maureen Duke Provider For Whom Craa is Documenting (Include Credential): Dieter Lin MD Scribe Attestation: I, Maureen Duke, scribed for Dieter Lin MD on 06/23/19 at 1218. Scribe Documentation Reviewed: Yes Provider Attestation: The documentation as recorded by the Maureen rawls accurately reflects the service I personally performed and the decisions made by me, Dieter Lin MD Status of Scribe Document: Viewed
[2019-06-23 10:44] LABS: ABS Eosinophils 0.1 10^3/ul (0-0.6); ABS Lymphocytes 0.6 10^3/ul (1.0-4.8); ABS Monocytes 0.9 10^3/ul (0-0.8); Eosinophil % 0.9 %; Hematocrit 33 % (42-52); Hemoglobin 11.2 g/dL (14.0-18.0); Lymphocyte % 7.5 %; Mean Corpuscular HGB Conc 34 g/dL (31-36); Mean Corpuscular Hemoglobin 29 pg (27-31); Mean Corpuscular Volume 86 fL (80-94); Mean Platelet Volume 7.1 fL (7.4-10.4); Platelet Count 230 10^3/uL (150-450); Red Blood Count 3.84 10^6 /uL (4.18-5.48); Red Cell Distribution Width 15 % (10-15); White Blood Count 8.6 10^3/uL (3.5-10.8)
[2019-06-23 11:00] LABS: Albumin 4.1 g/dL (3.2-5.2); Albumin/Globulin Ratio 1.5 (1-3); BUN/Creatinine Ratio 15.8 (8-20); Calcium 9.1 mg/dL (8.6-10.3); EGFR African American 40.9 (>60); EGFR Non-African American 33.8 (>60); Globulin 2.7 g/dL (2-4); Potassium 4.5 mmol/L (3.5-5.0); Total Bilirubin 0.3 mg/dL (0.2-1.0); Total Protein 6.8 g/dL (6.4-8.9)
[2019-06-23 11:37] LABS: Urine Appearance Cloudy; Urine Bilirubin Negative (Negative); Urine Blood 1+ (Negative); Urine Color Yellow; Urine Glucose Negative (Negative); Urine Ketones Negative (Negative); Urine Nitrite Positive (Negative); Urine Protein Negative (Negative); Urine Urobilinogen Negative (Negative)
[2019-06-23 11:51] LABS: Urine Bacteria 1+ (Absent); Urine Red Blood Cell 1+(3-5/hpf) (Absent); Urine Transitional Epithelial Present (Absent); Urine White Blood Cell 3+(>20/hpf) (Absent)
[2019-06-23] MEDS ORDERED: Amoxicillin/Clavulanate TAB* 875 MG PO ONE ×2 (12:08→12:13)
[2019-06-23 12:12] VITALS: BP 129/71
== END 2019-06-23 12:29 | disposition home or self-care (01) ==
LOC: ED 09:06
DX: N39.0 Urinary tract infection, site not specified (principal); Z79.01 Long term (current) use of anticoagulants; E11.9 Type 2 diabetes mellitus without complications; I25.10 Atherosclerotic heart disease of native coronary artery without angina pectoris; N28.9 Disorder of kidney and ureter, unspecified; Z86.718 Personal history of other venous thrombosis and embolism; E78.00 Pure hypercholesterolemia, unspecified; I25.2 Old myocardial infarction; Z85.46 Personal history of malignant neoplasm of prostate
CPT/HCPCS: 36415; 71046; 80053; 81003; 81015; 85025; 87077; 87086; 87186; 99283; A9270-GY

== ENCOUNTER 2019-08-04 12:16 | Inpatient (IN) | payer BC, OTHER ==
--- OUTSIDE RECORDS SUMMARY | 2019-08-04 12:30 | XMS REPORT | Continuity of Care Document ---
:1945 External Reference #:[id number] Author Name Jigar Canales MD (transmitted by agent of provider Carito Olmstead) Address [address] [address] Care Team Providers Name Role Phone Chuy Escalera MD - Endocrinology, Care Team Information Member Certification Manager Diabetes & Metabolism Prabha Washington MD - Internal Care Team Information Member Certification Manager [phone] Medicine Marco Carcamo MD - Hospitalist Care Team Information Member Certification Manager [phone] Problems Active Problems Provider Date Type 2 diabetes mellitus Kiran Davis, 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/2007 Martir,GELYP Neuralgia Neuritis & Radiculitis Kiran Davis, 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/2007 Unspecified Martir,FACP Lyme disease Kiran Davis, 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/2007 Martir,FACP Pure hypercholesterolemia Kiran Davis, 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/2007 Martir,FACP 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, 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 Martir,FACP Anticoagulants Residential (Current) Use Kiran Davis, 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/2007 Encounter Martir,FACP Sleep apnea Kiran Davis, Onset: 06/18/2007 Martir,GELYP Peripheral venous insufficiency Kiran Davis, Onset: 06/18/2007 Martir,FACP Polyneuropathy due to diabetes mellitus Kiran Davis, Onset: 10/07/2007 Martir,FACP Disorder of nervous system due to Kiran Tiffani Davis, Onset: 06/17/2008 diabetes mellitus Martir,[facility] Hyperlipidemia Wojciech Jones M.D., [facility], Onset: 04/16/2013 [facility] Benign essential hypertension Wojciech Jones M.D., [facility], Onset: 04/16/2013 [facility] Chronic ischemic heart disease Wojciech Jones M.D., [facility], Onset: 04/16/2013 [facility] Essential hypertension Wojciech Jones M.D., [facility], Onset: 08/01/2015 [facility] Atherosclerotic heart disease of [place] Wojciech Jones M.D., [facility], 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 [facility] Obesity oWjciech Jones M.D., [facility], Onset: 06/18/2016 [facility] Localized, primary osteoarthritis Sofya Borrego M.D. Onset: 11/03/2018 Coronary atherosclerosis Noble Chen M.D. Onset: 11/11/2018 Social History Type Date Description Comments Sex Unknown Tobacco Use Start: Unknown Never Smoked Cigarettes ETOH Use consumes 1-2 glasses of wine per week Recreational Drug Use Never Used Drugs Tobacco Use Start: Unknown Patient has never smoked Smoking Status Reviewed: 06/17/19 Patient has never smoked Exercise Type/Frequency Exercises rarely Allergies, Adverse Reactions, Alerts Active Allergies Reaction Severity Comments Date NKDA 04/06/2014 Latex Rash 04/06/2014 Adhesives blisters 04/06/2014 Inactive Allergies None 03/18/2007 NKDA 04/16/2013 S 06/03/2013 Medications Active Medications SIG Qnty Indications Ordering Provider Date Glipizide ER 1 tab by mouth 90tabs Nelson Vazquez MD 05/19/2019 5mg every day Tablets ER 24HR Tradjenta 5mg every day in 90tabs E11.22 Nelson Vazquez MD 05/19/2019 5mg Tablets the morning Ferrousul 1 tab by mouth 3 90tabs [facility], 03/25/2019 325(65Fe) times a week MD mg Tablets Sodium Bicarbonate 2 tab [facility] mouth [facility], 03/11/2019 twice times MD 650mg Tablets daily Gabapentin By mouth twice [facility] [place], 03/11/2019 300mg daily MD Capsules Lisinopril [...] FSCAI pain, if no relief call 911 Resveratrol 2 tabs by mouth Unknown 100mg Capsules daily Pterostilbine 50 mg cap 2 cap by Unknown mouth daily Proair HFA 2 puffs every 4 Unknown 108(90Base) hours as needed mcg/Act Aerosol Magnesium Glycinate 100mg capsule 1 cap Unknown Powder by mouth am and 1 cap pm Melatonin 1 tab by mouth at Unknown [...] qd 100units Kiran Davis, Strip or prn MRadha,FACP dx: 250.02 Medications Administered in Office Medication SIG Qnty Indications Ordering Provider Date Inj, Regadenoson, 0.1 MG Juan C Grey, DO [facility] 11/27/2018 Injection Technetium TC 99M Juan C Grey, DO [facility] 11/27/2018 Tetrofosmin, Per Unit Dose Up To 40 Millicuries Injection Technetium TC 99M Juan C Grey, DO [facility] 11/27/2018 Tetrofosmin, Per Unit Dose Up To 40 Millicuries Injection Depomedrol 40MG Sofya Borrego M.D. 11/03/2018 Injection Celestone 3 mg and 3mg Mela Novoa, 05/05/2014 Injection M.DYuniel Celestone 3 mg and 3mg Mela Novoa, 04/06/2014 Injection M.DYuniel Immunizations CPT Code Status Date Vaccine Lot # [id number] Given 02/23/2010 Influenza Virus 3Yrs & Over 04991 Given 02/15/2009 Influenza Virus Vaccine, Pandemic Formulation 45841 Given 02/15/2009 Influenza Virus Vaccine, Pandemic Formulation [address] [address] Given 02/15/2009 Administration Swine Flu Shot 44450 Given 03/18/2007 Influenza Virus 3Yrs & Over 93918 Given 03/18/2007 Influenza Virus 3Yrs & Over [id number] 86708 Given 02/21/2000 Influenza Virus 3Yrs & Over Vital Signs Date Vital Result Comment 06/17/2019 8:04am Height 71 inches 5'11" Weight 227.00 lb Heart Rate 72 /min BP Systolic Sitting 118 mmHg L arm BP Diastolic Sitting 68 mmHg L arm O2 % BldC Oximetry 94 % BMI (Body Mass Index) 31.7 kg/m2 06/09/2019 11:08am Height 71 inches 5'11" Weight 221.00 lb Heart Rate 87 /min BP Systolic Sitting 145 mmHg BP Diastolic Sitting 77 mmHg Body Temperature 98.2 F O2 % BldC Oximetry 97 % BMI (Body Mass Index) 30.8 kg/m2 Results Test Acquired Date Facility Test Result H/L Range Note Laboratory test 07/22/2019 [facility] [place] Albumin 4.6 g/dL Normal 3.2-5.[address] [place] [address] [phone] Neph Routine 07/22/2019 [facility] [place] Total 34 mg/dL [address] [place] [address] Random Urine [phone] Creatinine Random Urine 60.67 mg/dL CBC Auto 07/22/2019 [facility] [place] White Blood 8.1 10^3/uL Normal 3.5-10.[address] [place] [address] [phone] Red Blood Count 4.47 10^6/uL Normal 4.18-5.48 Hemoglobin 13.1 g/dL Low 14.0-18.0 Hematocrit 39 % Low 42-52 Mean Corpuscular Volume 88 fL Normal 80-94 Mean Corpuscular Hemoglobin 29 pg Normal 27-31 Mean Corpuscular HGB Conc 33 g/dL Normal 31-36 Red Cell Distribution Width 14 % Normal 10-15 Platelet Count 305 10^3/uL Normal 150-450 Mean Platelet Volume 7.3 fL Low 7.4-10.4 Abs Neutrophils 5.4 10^3/uL Normal 1.5-7.7 Abs Lymphocytes 1.5 10^3/uL Normal 1.0-4.8 Abs Monocytes 0.8 10^3/uL Normal 0-0.8 Abs Eosinophils 0.3 10^3/uL Normal 0-0.6 Abs Basophils 0.0 10^3/uL Normal 0-0.2 Abs Nucleated RBC 0.0 10^3/uL Granulocyte % 67.1 % Lymphocyte % 18.6 % Monocyte % 10.4 % Eosinophil % 3.4 % Basophil % 0.5 % Nucleated Red Blood Cells % 0.1 Basic Metabolic 07/22/2019 [facility] [place] Sodium 139 mmol/L Normal 135-[address] [place] [address] [phone] Potassium 4.8 mmol/L Normal 3.5-5.0 Chloride 108 mmol/L Normal 101-111 Co2 Carbon Dioxide 24 mmol/L Normal 22-32 Anion Gap 7 mmol/L Normal 2-11 Glucose 89 mg/dL Normal 70-100 Blood Urea Nitrogen 50 mg/dL High 6-24 Creatinine 1.78 mg/dL High 0.67-1.17 BUN/Creatinine Ratio 28.1 High 8-20 Calcium 9.7 mg/dL Normal 8.6-10.3 Egfr Non- 37.7 >60 Egfr 45.6 >60 1 Urinalysis Profile 07/22/2019 [facility] [place] Urine Color Yellow [address] [place] [address] [phone] Urine Appearance Cloudy Urine Specific Galt 1.011 Normal 1.010-1.030 Urine pH 6.0 Normal 5-9 Urine Urobilinogen Negative Negative Urine Ketones Negative Negative Urine Protein Negative Negative Urine Leukocytes 3+ Abnormal Negative Urine Blood Negative Negative Urine Nitrite Positive Abnormal Negative Urine Bilirubin Negative Negative Urine Glucose Negative Negative Urine White Blood Cell 3+(>20/hpf) Abnormal Absent Urine Red Blood Cell 1+(3-5/hpf) Abnormal Absent Urine Bacteria 1+ Abnormal Absent Urine Hyaline Casts Present Abnormal Absent Laboratory test 07/22/2019 [facility] [place] B-Type 34 pg/mL <=[address] [place] [address] Peptide BNP [phone] Urine Culture And 07/22/2019 [facility] [place] Urine Culture SEE RESULT [address] [place] [address] [phone] Influenza A & B 06/23/2019 [facility] [place] Flu AB (SEE NOTE) [address] [place] [address] [phone] Influenza A Molecular Negative Negative Influenza B Molecular Negative Negative 4 Comp Metabolic 06/23/2019 [facility] [place] Sodium 137 mmol/L Normal 135-[address] [place] [address] [phone] Potassium 4.5 mmol/L Normal 3.5-5.0 Chloride 108 mmol/L Normal 101-111 Co2 Carbon Dioxide 23 mmol/L Normal 22-32 Anion Gap 6 mmol/L Normal 2-11 Glucose 139 mg/dL High 70-100 Blood Urea Nitrogen 31 mg/dL High 6-24 Creatinine 1.96 mg/dL High 0.67-1.17 BUN/Creatinine Ratio 15.8 Normal 8-20 Calcium 9.1 mg/dL Normal 8.6-10.3 Total Protein 6.8 g/dL Normal 6.4-8.9 Albumin 4.1 g/dL Normal 3.2-5.2 Globulin 2.7 g/dL Normal 2-4 Albumin/Globulin Ratio 1.5 Normal 1-3 Total Bilirubin 0.30 mg/dL Normal 0.2-1.0 Alkaline Phosphatase 67 U/L Normal 34-104 Alt 16 U/L Normal 7-52 Ast 15 U/L Normal 13-39 Egfr Non- 33.8 >60 Egfr 40.9 >60 5 CBC Auto 06/23/2019 [facility] [place] White Blood 8.6 10^3/uL Normal 3.5-10.[address] [place] [address] [phone] Red Blood Count 3.84 10^6/uL Low 4.18-5.48 Hemoglobin 11.2 g/dL Low 14.0-18.0 Hematocrit 33 % Low 42-52 Mean Corpuscular Volume 86 fL Normal 80-94 Mean Corpuscular Hemoglobin 29 pg Normal 27-31 Mean Corpuscular HGB Conc 34 g/dL Normal 31-36 Red Cell Distribution Width 15 % Normal 10-15 Platelet Count 230 10^3/uL Normal 150-450 Mean Platelet Volume 7.1 fL Low 7.4-10.4 Abs Neutrophils 7.0 10^3/uL Normal 1.5-7.7 Abs Lymphocytes 0.6 10^3/uL Low 1.0-4.8 Abs Monocytes 0.9 10^3/uL High 0-0.8 Abs Eosinophils 0.1 10^3/uL Normal 0-0.6 Abs Basophils 0.0 10^3/uL Normal 0-0.2 Abs Nucleated RBC 0.0 10^3/uL Granulocyte % 81.2 % Lymphocyte % 7.5 % Monocyte % 10.1 % Eosinophil % 0.9 % Basophil % 0.3 % Nucleated Red Blood Cells % 0.0 Urine Culture And 06/23/2019 [facility] [place] Urine Culture SEE RESULT [address] [place] [address] [phone] Urinalysis Profile 06/23/2019 [facility] [place] Urine Color Yellow [address] [place] [address] [phone] Urine Appearance Cloudy Urine Specific Galt 1.010 Normal 1.010-1.030 Urine pH 7.0 Normal 5-9 Urine Urobilinogen Negative Negative Urine Ketones Negative Negative Urine Protein Negative Negative Urine Leukocytes 3+ Abnormal Negative Urine Blood 1+ Abnormal Negative * * Abnormal Negative 7 Urine Nitrite Positive Abnormal Negative Urine Bilirubin Negative Negative Urine Glucose Negative Negative Urine White Blood Cell 3+(>20/hpf) Abnormal Absent Urine Red Blood Cell 1+(3-5/hpf) Abnormal Absent Urine Bacteria 1+ Abnormal Absent Urine Transitional Epithelial Present Abnormal Absent Laboratory test 06/15/2019 [facility] [place] Albumin 4.7 g/dL Normal 3.2-5.[address] [place] [address] [phone] Magnesium 2.2 mg/dL Normal 1.9-2.7 Neph Routine 06/15/2019 [facility] [place] Total Protein Random 29 mg/ dL [address] [place] [address] [phone] Creatinine Random Urine 59.48 mg/dL CBC Auto 06/15/2019 [facility] [place] White Blood 8.3 10^3/uL Normal 3.5-10.[address] [place] [address] [phone] Red Blood Count 4.00 10^6/uL Low 4.18-5.48 Hemoglobin 11.9 g/dL Low 14.0-18.0 Hematocrit 35 % Low 42-52 Mean Corpuscular Volume 88 fL Normal 80-94 Mean Corpuscular Hemoglobin 30 pg Normal 27-31 Mean Corpuscular HGB Conc 34 g/dL Normal 31-36 Red Cell Distribution Width 15 % Normal 10-15 Platelet Count 251 10^3/uL Normal 150-450 Mean Platelet Volume 7.6 fL Normal 7.4-10.4 Abs Neutrophils 5.0 10^3/uL Normal 1.5-7.7 Abs Lymphocytes 1.7 10^3/uL Normal 1.0-4.8 Abs Monocytes 1.0 10^3/uL High 0-0.8 Abs Eosinophils 0.5 10^3/uL Normal 0-0.6 Abs Basophils 0.1 10^3/uL Normal 0-0.2 Abs Nucleated RBC 0.0 10^3/uL Granulocyte % 60.2 % Lymphocyte % 20.4 % Monocyte % 12.6 % Eosinophil % 6.1 % Basophil % 0.7 % Nucleated Red Blood Cells % 0.0 Basic Metabolic 06/15/2019 [facility] [place] Sodium 140 mmol/L Normal 135-[address] [place] [address] [phone] Potassium 4.7 mmol/L Normal 3.5-5.0 Chloride 110 mmol/L Normal 101-111 Co2 Carbon Dioxide 23 mmol/L Normal 22-32 Anion Gap 7 mmol/L Normal 2-11 Glucose 99 mg/dL Normal 70-100 Blood Urea Nitrogen 42 mg/dL High 6-24 Creatinine 1.91 mg/dL High 0.67-1.17 BUN/Creatinine Ratio 22.0 High 8-20 Calcium 9.4 mg/dL Normal 8.6-10.3 Egfr Non- 34.8 >60 Egfr 42.1 >60 8 Urinalysis 06/15/2019 [facility] [place] Urine 3+(>20/hpf) Abnormal Absent Profile [address] [place] [address] Blood [phone] Cell Urine Red Blood Cell 1+(3-5/hpf) Abnormal Absent Urine Bacteria 1+ Abnormal Absent Urine Color Yellow Urine Appearance Cloudy Urine Specific Galt 1.011 Normal 1.010-1.030 Urine pH 6.0 Normal 5-9 Urine Urobilinogen Negative Negative Urine Ketones Negative Negative Urine Protein Negative Negative Urine Leukocytes 2+ Abnormal Negative Urine Blood Negative Negative Urine Nitrite Positive Abnormal Negative Urine Bilirubin Negative Negative Urine Glucose Negative Negative Urine Culture And 06/15/2019 [facility] [place] Urine Culture SEE [address] [place] [address] BELOW [phone] Immunoglobulins 06/15/2019 [facility] [place] Immunoglobulin G 1330 767 - 10 Serum Quant [address] mg/dL 1590 [place] [address] [phone] Immunoglobulin M 121 mg/dL 37 - 286 Immunoglobulin A 145 mg/dL 61 - 356 Laboratory test 05/30/2019 [facility] [place] Albumin 4.8 g/dL Normal 3.2-5.[address] [place], [place] [id number] [phone] Neph Routine 05/30/2019 [facility] [place] Total 34 mg/dL [address] [place] [address] Random Urine [phone] Creatinine Random Urine 64.28 mg/dL Laboratory test 05/30/2019 [facility] [place] Hemoglobin A1c 7.1 % High 4.0-5.6 [address] (Glyco [place]GB) [place] [address] [phone] CBC Auto Diff 05/30/2019 [facility] [place] White Blood 8.4 Normal 3.5 -10.[address] Count 10^3/uL [place], [place] [address] [phone] Red Blood Count 4.23 10^6/uL Normal 4.18-5.48 [...] Blood Cells % 0.0 Basic Metabolic 05/30/2019 [facility] [place] Sodium 141 mmol/L Normal 135-[address] [place] [address] [phone] Chloride 111 mmol/L Normal 101-111 Co2 Carbon Dioxide 26 mmol/L Normal 22-32 Calcium 9.6 mg/dL Normal 8.6-10.3 Potassium 5.4 mmol/L High 3.5-5.0 Anion Gap 4 mmol/L Normal 2-11 Glucose 118 mg/dL High 70-100 Blood Urea Nitrogen 39 mg/dL High 6-24 Creatinine 2.03 mg/dL High 0.67-1.17 BUN/Creatinine Ratio 19.2 Normal 8-20 Egfr Non- 32.4 >60 Egfr 39.3 >60 12 Urine Culture And 05/30/2019 [facility] [place] Urine Culture SEE RESULT [address] [place] [address] [phone] Urinalysis Profile 05/30/2019 [facility] [place] Urine Color Yellow [address] [place] [address] [phone] Urine Appearance Cloudy Urine Specific Galt 1.011 Normal 1.010-1.030 Urine pH 7.0 Normal 5-9 Urine Urobilinogen Negative Negative Urine Ketones Negative Negative Urine Protein Negative Negative Urine Leukocytes 3+ Abnormal Negative Urine Blood Negative Negative * * Abnormal Negative 14 Urine Nitrite Positive Abnormal Negative Urine Bilirubin Negative Negative Urine Glucose Negative Negative Urine White Blood Cell 3+(>20/hpf) Abnormal Absent Urine Red Blood Cell 1+(3-5/hpf) Abnormal Absent Urine Bacteria Absent Absent Urine Squamous Epithelial Cell Present Abnormal Absent Urine Transitional Epithelial Present Abnormal Absent Urine Culture And 05/16/2019 [facility] [place] Urine Culture SEE RESULT [address] [place] [address] [phone] Neph Routine 05/16/2019 [facility] [place] Total Protein 29 mg/dL [address] [place] [address] [phone] Creatinine Random Urine 58.65 mg/dL CBC Auto 05/16/2019 [facility] [place] White Blood 7.2 10^3/uL Normal 3.5-10.[address] [place] [address] [phone] Red Blood Count 3.80 10^6/uL Low 4.18-5.48 [...] Red Blood Cells % 0.0 Urinalysis Profile 05/16/2019 [facility] [place] Urine Color Yellow [address] [place] [address] [phone] Urine Appearance Cloudy Urine Specific Galt 1.010 Normal 1.010-1.030 Urine pH 7.0 Normal [...] Urine Renal Epithelial Cells Present Abnormal Absent Basic Metabolic 05/16/2019 [facility] [place] Sodium 139 mmol/L Normal 135-145 Panel [address] [place] [address] [phone] Potassium 4.8 mmol/L Normal 3.5-5.0 Chloride 108 mmol/L Normal 101-111 Co2 Carbon Dioxide 24 mmol/L Normal 22-32 Anion Gap 7 mmol/L Normal 2-11 Glucose 131 mg/dL High 70-100 Blood Urea Nitrogen 30 mg/dL High 6-24 Creatinine 1.61 mg/dL High 0.67-1.17 BUN/Creatinine Ratio 18.6 Normal 8-20 Calcium 9.1 mg/dL Normal 8.6-10.3 Egfr Non- 42.4 >60 Egfr 51.3 >60 16 Urine Culture And 04/21/2019 [facility] [place] Urine Culture SEE RESULT [address] [place] [address] [phone] Laboratory test 04/21/2019 [facility] [place] Ferritin 60.5 ng/mL Normal 24-[address] [place] [address] [phone] Iron & Iron 04/21/2019 [facility] [place] Iron 38 g/dL Low 50-2 Binding Capacity [address] [place] [address] [phone] Unsaturated Iron Binding < 394 g/dL Total Iron Binding Capacity 409 g/dL Normal 250-450 Transferrin 292 mg/dL Normal 203-362 % Iron Saturation 9 % Low 15-55 Neph Routine 04/21/2019 [facility] [place] Total Protein Random 33 mg/ dL [address] [place] [address] [phone] Creatinine Random Urine 50.15 mg/dL 19 CBC Auto 04/21/2019 [facility] [place] White Blood 9.0 10^3/uL Normal 3.5-10.[address] [place] [address] [phone] Red Blood Count 3.49 10^6/uL Low 4.18-5.48 [...] Red Blood Cells % 0.0 Laboratory test 04/21/2019 [facility] [place] Albumin 4.5 g/dL Normal 3.2-5.[address] [place] [address] [phone] Urinalysis 04/21/2019 [facility] [place] Urine Color Yellow [place] [address] [place] [address] [phone] Urine Appearance Cloudy Urine Specific Galt 1.010 Normal 1.010-1.030 Urine pH 6.0 Normal 5-9 Urine Urobilinogen Negative Negative Urine Ketones Negative Negative Urine Protein Negative Negative Urine Leukocytes 1+ Abnormal Negative Urine Blood Negative Negative * * Abnormal Negative 20 Urine Nitrite Negative Negative Urine Bilirubin Negative Negative Urine Glucose Negative Negative Urine White Blood Cell 2+(11-20/hpf) Abnormal Absent Urine Red Blood Cell Absent Absent Urine Bacteria Absent Absent Basic Metabolic 04/21/2019 [facility] [place] Sodium 140 mmol/L Normal 135-[address] [place] [address] [phone] Potassium 4.7 mmol/L Normal 3.5-5.0 Chloride 111 mmol/L Normal 101-111 Co2 Carbon Dioxide 22 mmol/L Normal 22-32 Anion Gap 7 mmol/L Normal 2-11 Glucose 104 mg/dL High 70-100 Blood Urea Nitrogen 43 mg/dL High 6-24 Creatinine 1.81 mg/dL High 0.67-1.17 BUN/Creatinine Ratio 23.8 High 8-20 Calcium 9.0 mg/dL Normal 8.6-10.3 Egfr Non- 37.0 >60 Egfr 44.8 >60 21 Neph Routine 03/24/2019 [facility] [place] Total Protein Random 27 mg/ dL [address] [place] [address] [phone] Creatinine Random Urine 60.28 mg/dL Urine Culture And 03/24/2019 [facility] [place] Urine Culture SEE RESULT [address] [place] [address] [phone] Laboratory test 03/24/2019 [facility] [place] Ferritin 80.8 ng/mL Normal 24-[address] [place] [address] [phone] CBC Auto Diff 03/24/2019 [facility] [place] White Blood 9.3 Normal 3.5 - [address] Count 10^3/uL 10.8 [place] [address] [phone] Red Blood Count 3.00 10^6/uL Low 4.18-5.48 [...] Blood Cells % 0.1 Basic Metabolic 03/24/2019 [facility] [place] Sodium 139 mmol/L Normal 135-[address] [place] [address] [phone] Potassium 5.0 mmol/L Normal 3.5-5.0 Chloride 111 mmol/L Normal 101-111 Co2 Carbon Dioxide 22 mmol/L Normal 22-32 Anion Gap 6 mmol/L Normal 2-11 Glucose 103 mg/dL High 70-100 Blood Urea Nitrogen 29 mg/dL High 6-24 Creatinine 1.88 mg/dL High 0.67-1.17 BUN/Creatinine Ratio 15.4 Normal 8-20 Calcium 8.6 mg/dL Normal 8.6-10.3 Egfr Non- 35.5 >60 Egfr 42.9 >60 23 Iron & Iron Binding 03/24/2019 [facility] [place] Iron 57 g/dL Normal 50-[address] [place] [address] [phone] Unsaturated Iron Binding < 342 g/dL Total Iron Binding Capacity 357 g/dL Normal 250-450 Transferrin 255 mg/dL Normal 203-362 % Iron Saturation 16 % Normal 15-55 Laboratory test 03/24/2019 [facility] [place] Albumin 4.0 g/dL Normal 3.2-5.[address] [place] [address] [phone] Urinalysis 03/24/2019 [facility] [place] Urine Color Yellow [place] [address] [place] [address] [phone] Urine Appearance Cloudy Urine Specific Galt 1.010 Normal 1.010-1.030 Urine pH 6.0 Normal 5-9 Urine Urobilinogen Negative Negative Urine Ketones Negative Negative Urine Protein Negative Negative Urine Leukocytes Trace Abnormal Negative Urine Blood Negative Negative * * Abnormal Negative 24 Urine Nitrite Negative Negative Urine Bilirubin Negative Negative Urine Glucose Negative Negative Urine White Blood Cell 1+(6-10/hpf) Abnormal Absent Urine Red Blood Cell Absent Absent Urine Bacteria Absent Absent Urinalysis Profile 03/10/2019 [facility] [place] Urine Color Yellow [address] [place] [address] [phone] Urine Appearance Clear Urine Specific Galt 1.010 Normal 1.010-1.030 Urine pH 6.0 Normal 5-9 Urine Urobilinogen Negative Negative Urine Ketones Negative Negative Urine Protein Negative Negative Urine Leukocytes Trace Abnormal Negative Urine Blood Negative Negative * * Abnormal Negative 26 Urine Nitrite Negative Negative Urine Bilirubin Negative Negative Urine Glucose Negative Negative Urine White Blood Cell 2+(11-20/hpf) Abnormal Absent Urine Red Blood Cell Absent Absent Urine Bacteria Absent Absent Urine Culture And 03/10/2019 [facility] [place] Urine Culture SEE RESULT [address] [place] [address] [phone] Laboratory test 03/10/2019 [facility] [place] Creatinine 47.78 mg/dL [address] [place] [address] [phone] Total Protein Random Urine 48 mg/dL 29 Basic Metabolic 03/10/2019 [facility] [place] Sodium 139 mmol/L Normal 135-[address] [place] [address] [phone] Potassium 4.3 mmol/L Normal 3.5-5.0 Chloride 113 mmol/L High 101-111 Co2 Carbon Dioxide 16 mmol/L Low 22-32 Anion Gap 10 mmol/L Normal 2-11 Glucose 128 mg/dL High 70-100 Blood Urea Nitrogen 50 mg/dL High 6-24 Creatinine 2.47 mg/dL High 0.67-1.17 BUN/Creatinine Ratio 20.2 High 8-20 Calcium 8.9 mg/dL Normal 8.6-10.3 Egfr Non- 25.9 >60 Egfr 31.3 >60 30 CBC Auto 03/10/2019 [facility] [place] White Blood 10.9 10^3/uL High 3.5-10.[address] [place] [address] [phone] Red Blood Count 3.10 10^6/uL Low 4.18-5.48 [...] Red Blood Cells % 0.0 Laboratory test 03/10/2019 [facility] [place] Albumin 4.2 g/dL Normal 3.2-5.[address] [place] [address] [phone] Iron & Iron 03/04/2019 [facility] [place] Iron 56 g/dL Normal 50- 212 [address] [place] [address] [phone] Unsaturated Iron Binding < 332 g/dL Total Iron Binding Capacity 347 g/dL Normal 250-450 Transferrin 248 mg/dL Normal 203-362 % Iron Saturation 16 % Normal 15-55 Laboratory test 03/04/2019 [facility] [place] Ferritin 122.7 ng/mL Normal 24-336 [address] [place] [address] [phone] Urinalysis 03/04/2019 [facility] [place] Urine Color Yellow Profile [address] [place] [address] [phone] Urine Appearance Cloudy Urine Specific Galt 1.011 Normal 1.010-1.030 Urine pH 6.0 Normal 5-9 Urine Urobilinogen Negative Negative Urine Ketones Negative Negative Urine Protein Negative Negative Urine Leukocytes 3+ Abnormal Negative Urine Blood 2+ Abnormal Negative Urine Nitrite Negative Negative Urine Bilirubin Negative Negative Urine Glucose Negative Negative Urine White Blood Cell 3+(>20/hpf) Abnormal Absent Urine Red Blood Cell 3+(>10/hpf) Abnormal Absent Urine Bacteria Absent Absent CBC Auto 03/04/2019 [facility] [place] White Blood 9.5 10^3/uL Normal 3.5-10.[address] [place] [address] [phone] Red Blood Count 3.07 10^6/uL Low 4.18-5.48 [...] Cells % 0.0 Urine Culture And 03/04/2019 [facility] [place] Urine SEE RESULT [address] [place] [address] [phone] Laboratory test 03/04/2019 [facility] [place] Albumin 3.9 g/dL Normal 3.2- [address] 5[address]2 [place] [address] [phone] Hemoglobin A1c (Glyco HGB) 7.5 % High 4.0-5.6 36 Urinalysis Profile 03/04/2019 [facility] [place] Urine Color Yellow [address] [place] [address] [phone] Urine Appearance Clear Urine Specific Galt 1.010 Normal 1.010-1.030 Urine pH 7.0 Normal 5-9 Urine Urobilinogen Negative Negative Urine Ketones Negative Negative Urine Protein Negative Negative Urine Leukocytes Trace Abnormal Negative Urine Blood Negative Negative Urine Nitrite Negative Negative Urine Bilirubin Negative Negative Urine Glucose Negative Negative Urine White Blood Cell 1+(6-10/hpf) Abnormal Absent Urine Red Blood Cell Absent Absent Urine Bacteria Absent Absent Comp Metabolic 03/04/2019 [facility] [place] Sodium 142 mmol/L Normal 135-[address] [place] [address] [phone] Potassium 4.6 mmol/L Normal 3.5-5.0 Co2 Carbon [...] Egfr Non- 19.1 >60 Egfr 23.1 >60 37 Chloride 120 mmol/L High 101-111 Anion Gap 7 mmol/L Normal 2-11 CBC Auto 03/04/2019 [facility] [place] White Blood 10.8 10^3/uL Normal 3.5-10.[address] [place] [address] [phone] Red Blood Count 3.37 10^6/uL Low 4.18-5.48 [...] Red Blood Cells % 0.0 Basic Metabolic 03/04/2019 [facility] [place] Sodium 140 mmol/L Normal 135-145 Panel [address] [place] [address] [phone] Potassium 5.0 mmol/L Normal 3.5-5.0 Chloride 116 mmol/L High 101-111 Co2 Carbon Dioxide 14 mmol/L Critical low 22-32 38 Anion Gap 10 mmol/L Normal 2-11 Glucose 118 mg/dL High 70-100 Blood Urea Nitrogen 73 mg/dL High 6-24 Creatinine 3.28 mg/dL High 0.67-1.17 BUN/Creatinine Ratio 22.3 High 8-20 Calcium 8.8 mg/dL Normal 8.6-10.3 Egfr Non- 18.6 >60 Egfr 22.6 >60 39 Basic Metabolic 03/04/2019 [facility] [place] Sodium 142 mmol/L Normal 135-145 Panel [address] [place] [address] [phone] Potassium 4.5 mmol/L Normal 3.5-5.0 Glucose 125 mg/dL High 70-100 Blood Urea Nitrogen 72 mg/dL High 6-24 Creatinine 3.24 mg/dL High 0.67-1.17 BUN/Creatinine Ratio 22.2 High 8-20 Calcium 8.5 mg/dL Low 8.6-10.3 Egfr Non- 18.9 >60 Egfr 22.9 >60 40 Chloride 118 mmol/L High 101-111 Co2 Carbon Dioxide 14 mmol/L Critical low 22-32 41 Anion Gap 10 mmol/L Normal 2-11 Neph Routine 03/04/2019 [facility] [place] Total Protein Random 69 mg/ dL [address] [place] [address] [phone] Creatinine Random Urine 72.89 mg/dL 43 1 Because ethnic data is not always [...] dialysis) 2 SEE RESULT BELOW Name: ADDISDARIO L : [address]: Jigar Canales MD Acct: [id number] Unit: [id number] AGE: 74 Location: [facility] Re07/22/19 SEX: M Status: REG REF SPEC: [id number] JAROD: 07/22/19-[address] [facility] [address]: Jigar Canales MD REQ: [id number] RECD: 07/22/19 STATUS: COMP _ SOURCE: URINE SPDESC: ORDERED: Urine Culture Procedure Result Reported Site Urine Culture Final 07/24/19- 0755 ML Organism 1 KLEBSIELLA AEROGENES [place] Count >100,000 (Many) CFU/ML 1. KLEBSIELLA AEROGENES M.I.C. RX --------- ------ Cefazolin >=64 R Cefepime <=1 S Ceftriaxone <=1 S Ciprofloxacin <=0.25 S Gentamicin <=1 S Levofloxacin <=0.12 S Meropenem <=0.25 S Nitrofurantoin 64 I Tetracycline <=1 S Piperacillin/Tazobactam <=4 S Trimethoprim/Sulfamethoxazole <=20 S Amoxicillin/Clavulanic Acid >=32 R Aztreonam <=1 S Contact the Microbiology Department for any additional antibiotic reporting. * - [facility] . END OF REPORT DEPARTMENT OF PATHOLOGY, [address] [place] [address] Jorge Luis Davis M.D. Director [facility] # [id number] 3 Suboptimal collection technique may reduce sensitivity of test. Refer to the [employer] Test Catalog for collection information: [email or web address] As with all diagnostic procedures, the laboratory results obtained should be used in conjunction with other clinical information available to the physician, including confirmation by another method, as applicable. 4 Graphic Design Manager: [id number] 5 Because ethnic data is not always [...] (or dialysis) 6 SEE RESULT BELOW Name: MANCINI,CRAIG : [address]: Dieter Lin MD Acct: [id number] Unit: [id number] AGE: 73 Location: ED Re06/23/19 SEX: M Status: DEP ER SPEC: [id number] JAROD: 06/23/[address] [facility] [address]: Dieter Lin MD REQ: [id number] RECD: 06/23/19 STATUS: [facility] DOWE[facility] DR: Marco Carcamo MD _ SOURCE: URINE SPDESC: ORDERED: Urine Culture Procedure Result Reported Site Urine Culture Final 06/25/19- 912 ML Organism 1 ENTEROCOCCUS FAECALIS [place] Count >100,000 (Many) CFU/ML 1. ENTEROCOCCUS FAECALIS M.I.C. RX --------- ------ Ampicillin <=2 S Penicillin 2 S Ciprofloxacin <=0.5 S Gentamicin High Level S Levofloxacin 1 S Nitrofurantoin <=16 S * Quinupristin/Dalfopristin 4 R * Streptomycin High Level S Tetracycline >=16 R Tigecycline <=0.12 S Vancomycin 1 S Imipenem-Deduced S * Ampicillin/Sulbactam-Deduced S * These antibiotics are not available in the [facility] [place] Formulary Contact the Microbiology Department for any additional antibiotic reporting. * [facility] - Main Lab . END OF REPORT DEPARTMENT OF PATHOLOGY, [address] [place] [address] Jorge Luis Davis M.D. Director [facility] # [id number] 7 *Ascorbic acid is present which may interfere with detection of blood. 8 Because ethnic data is not always readily [...] 15-29 5 Kidney failure <15 (or dialysis) 9 SEE RESULT BELOW Name: DARIO MANCINI : [address]: Marco Carcamo MD Acct: [id number] Unit: [id number] AGE: 73 Location: LAB Re06/15/19 SEX: M Status: REG REF SPEC: [id number] JAROD: 06/15/19-[address]: Jigar Canales MD REQ: [id number] RECD: 06/15/19 STATUS: COMP _ SOURCE: URINE SPDESC: ORDERED: Urine Culture Procedure Result Reported Site Urine Culture Final 06/18/19- 832 ML Organism 1 ENTEROCOCCUS FAECALIS [place] Count >100,000 (Many) CFU/ML 1. ENTEROCOCCUS FAECALIS M.I.C. RX --------- ------ Ampicillin <=2 S Penicillin 4 S Ciprofloxacin <=0.5 S Gentamicin High Level S Levofloxacin 1 S Nitrofurantoin <=16 S * Quinupristin/Dalfopristin 8 R * Streptomycin High Level S Tetracycline >=16 R Tigecycline <=0.12 S Vancomycin 1 S Imipenem-Deduced S * Ampicillin/Sulbactam-Deduced S * These antibiotics are not available in the [facility] [place] Formulary Contact the Microbiology Department for any additional antibiotic reporting. * [facility] - Main Lab . END OF REPORT DEPARTMENT OF PATHOLOGY, [address] [place] [address] Jorge Luis Davis M.D. Director [facility] # [id number] 10 Test Performed by: [facility] [address] [place] [address] Plaster Patternmaker: Prosper Davila M.D. Ph.D.; CLIA# [id number] 11 Therapeutic target for the treatment of diabetes mellitus patients is <7% HBA1C, and in selective patients <6.0%. Please refer to [place] [employer] diabetic care guidelines for further information. 12 Because ethnic data is not always [...] 5 Kidney failure <15 (or dialysis) 13 SEE RESULT BELOW Name: DARIO MANCINI : [address]: Jigar Canales MD Acct: [id number] Unit: [id number] AGE: 73 Location: LAB Re05/30/19 SEX: M Status: REG REF SPEC: [id number] JAROD: 05/30/19-[address]: Jigar Canales MD REQ: [id number] RECD: 05/30/19 STATUS: COMP DELMER DR: Marco Vazquez MD _ SOURCE: URINE SPDESC: ORDERED: Urine Culture Procedure Result Reported Site Urine Culture Final 06/01/19840 ML Organism 1 ENTEROCOCCUS FAECALIS [place] Count 75-100,000 (Many) CFU/ML 1. ENTEROCOCCUS FAECALIS M.I.C. RX --------- ------ Ampicillin <=2 S Penicillin 4 S Ciprofloxacin <=0.5 S Gentamicin High Level S Levofloxacin 1 S Nitrofurantoin <=16 S * Quinupristin/Dalfopristin 8 R * Streptomycin High Level S Tetracycline >=16 R Tigecycline <=0.12 S Vancomycin 1 S Imipenem-Deduced S * Ampicillin/Sulbactam-Deduced S CONTINUED ON NEXT PAGE DEPARTMENT OF PATHOLOGY, [address] [place] [address] Jorge Luis Davis M.D. Director [facility] # [id number] Specimen: [id number] Collected: 05/30/19 Received: 05/30/19132 (Continued) Procedure Result Reported Site Urine Culture Final (continued) * These antibiotics are not available in the [facility] [place] Formulary Contact the Microbiology Department for any additional antibiotic reporting. * [facility] - Main Lab . END OF REPORT DEPARTMENT OF PATHOLOGY, [address] [place] [address] Jorge Luis Davis M.D. Director [facility] # [id number] 14 *Ascorbic acid is present which may interfere with detection of blood. 15 SEE RESULT BELOW Name: DARIO MANCINI : [address]: Jigar Canales MD Acct: [id number] Unit: [id number] AGE: 73 Location: LAB Re05/16/19 SEX: M Status: REG REF SPEC: [id number] JAROD: 05/16/19-[address]: Jigar Canales MD REQ: [id number] RECD: 05/16/19 STATUS: COMP _ SOURCE: URINE SPDESC: ORDERED: Urine Culture Procedure Result Reported Site Urine Culture Final 05/18/19741 ML Organism 1 ENTEROCOCCUS FAECALIS [place] Count >100,000 (Many) CFU/ML Organism 2 NORMAL CADENCE [place] Count 10-25,000 (Moderate) CFU/ML 1. ENTEROCOCCUS FAECALIS M.I.C. RX --------- ------ Ampicillin <=2 S Penicillin 4 S Ciprofloxacin <=0.5 S Gentamicin High Level S Levofloxacin 1 S Nitrofurantoin <=16 S * Quinupristin/Dalfopristin 8 R * Streptomycin High Level S Tetracycline >=16 R Tigecycline <=0.12 S Vancomycin 1 S Imipenem-Deduced S * Ampicillin/Sulbactam-Deduced S CONTINUED ON NEXT PAGE DEPARTMENT OF PATHOLOGY, [address] [place] [address] Jorge Luis Davis M.D. Director [facility] # [id number] Specimen: [id number] Collected: 05/16/19 Received: 05/16/19 (Continued) Procedure Result Reported Site Urine Culture Final (continued) * These antibiotics are not available in the [facility] [place] Formulary Contact the Microbiology Department for any additional antibiotic reporting. * [facility] - Main Lab . END OF REPORT DEPARTMENT OF PATHOLOGY, [address] [place] [address] Jorge Luis Davis M.D. Director [facility] # [id number] 16 Because ethnic data is not always [...] 5 Kidney failure <15 (or dialysis) 17 SEE RESULT BELOW Name: DARIO MANCINI : [address]: Jigar Canales MD Acct: [id number] Unit: [id number] AGE: 73 Location: LAB Re04/21/19 SEX: M Status: REG REF SPEC: [id number] JAROD: 04/21/19-[address]: Jigar Canales MD REQ: [id number] RECD: 04/21/19 STATUS: COMP _ SOURCE: URINE SPDESC: ORDERED: Urine Culture Procedure Result Reported Site Urine Culture Final 04/22/19- 1440 ML No growth of clinically significant organisms * [facility] - Main Lab . END OF REPORT DEPARTMENT OF PATHOLOGY, [address] [place] [address] Jorge Luis Davis M.D. Director [facility] # [id number] 18 CATH SPECIMEN 19 CATH SPECIMEN 20 *Ascorbic acid is present which may interfere with detection of blood. 21 Because ethnic data is not always readily [...] 15-29 5 Kidney failure <15 (or dialysis) 22 SEE RESULT BELOW Name: DARIO MANCINI : [address]: Jigar Canales MD Acct: [id number] Unit: [id number] AGE: 73 Location: LAB Re03/24/19 SEX: M Status: REG REF SPEC: [id number] JAROD: 03/24/19-[address]: Jigar Canales MD REQ: [id number] RECD: 03/24/19 STATUS: COMP _ SOURCE: URINE [facility]: ORDERED: Urine Culture Procedure Result Reported Site Urine Culture Final 03/25/19- 1459 ML No Growth (<1,000 CFU/mL) * [facility] - Main Lab . END OF REPORT DEPARTMENT OF PATHOLOGY, [address] [place] [address] Jorge Luis Davis M.D. Director [facility] # [id number] 23 Because ethnic data is not always [...] 5 Kidney failure <15 (or dialysis) 24 *Ascorbic acid is present which may interfere with detection of blood. 25 Next week. 26 *Ascorbic acid is present which may interfere with detection of blood. 27 SEE RESULT BELOW Name: MANCINIDARIO Luis Miguel : [address]: Jigar Canales MD Acct: [id number] Unit: [id number] AGE: 73 Location: LAB Re03/10/19 SEX: M Status: REG REF SPEC: [id number] JAROD: 03/10/[address]: Jigar Canales MD REQ: [id number] RECD: 03/10/19 STATUS: COMP _ SOURCE: URINE SPDESC: ORDERED: Urine Culture Procedure Result Reported Site Urine Culture Final 03/11/19- 1443 ML No Growth (<1,000 CFU/mL) * [facility] - Main Lab . END OF REPORT DEPARTMENT OF PATHOLOGY, [address] [place] [address] Jorge Luis Davis M.D. Director [facility] # [id number] Next week. Next week. 30 Because ethnic data is not always readily [...] 15-29 5 Kidney failure <15 (or dialysis) 31 Next week. 32 Today 33 Today 34 SEE RESULT BELOW Name: DARIO MANCINI : [address]: Jigar Canales MD Acct: [id number] Unit: [id number] AGE: 73 Location: LAB Re03/04/19 SEX: M Status: REG REF SPEC: [id number] JAROD: 03/04/[address] [facility] [address]: Jigar Canales MD REQ: [id number] RECD: 03/04/19 STATUS: PARADISE MICHEL DR: Prabha Washington MD PC _ SOURCE: URINE SPDESC: ORDERED: Urine Culture Procedure Result Reported Site Urine Culture Final 03/05/19- 1548 ML Organism 1 NANCY ALBICANS [place] Count 25-50,000 (Moderate) CFU/ML * [facility] - Main Lab . END OF REPORT DEPARTMENT OF PATHOLOGY, [address] [place] [address] Jorge Luis Davis M.D. Director [facility] # [id number] 35 Today 36 Therapeutic target for the treatment of diabetes mellitus patients is <7% HBA1C, and in selective patients <6.0%. Please refer to [place] [employer] diabetic care guidelines for further information. 37 Because ethnic data is not always [...] 5 Kidney failure <15 (or dialysis) 38 Critical Result CO2:14 Called to REMBERTO Bello at: 10:23:35 by:[id number] Read back by:REMBERTO Bello 39 Because ethnic data is not always [...] 5 Kidney failure <15 (or dialysis) 40 Because ethnic data is not always [...] 5 Kidney failure <15 (or dialysis) 41 Critical Result CO2:14 Called to [id number] at: 19:35:48 by:[id number] Read back by:[id number] 42 Today 43 Today Procedures Date Code Description Status 02/09/2019 93196 ECHO Transthorasic Realtime 2D W Doppler & Color Flow Completed Hosp 06/28/2017 [id number] Colonoscopy Completed 05/15/2010 867693646 Diabetic Foot Exam Completed 04/28/2010 031549569 Diabetic Foot Exam Completed 02/28/2010 018050455 Diabetic Retinal Eye Exam Completed 04/01/2008 394740061 Diabetic Retinal Eye Exam Completed 02/26/2008 133904975 Diabetic Foot Exam Completed 02/05/2008 437366054 Diabetic Foot Exam Completed 02/25/2007 242733791 Diabetic Retinal Eye Exam Completed Medical Devices Description No Information Available Encounters Type Date Location Provider Dx Diagnosis Office Visit 07/29/2019 [facility] Nephrology Jigar King I12.9 Hypertensive chronic 8:00a MD [place] kidney disease w stg 1-4/unsp [facility] E11.22 Type 2 diabetes mellitus w diabetic chronic kidney disease N18.3 Chronic kidney disease, stage 3 (moderate) I82.412 Acute embolism and thrombosis of left femoral vein Z79.01 [facility] (current) use of anticoagulants Office Visit 06/17/2019 8:00a [facility] Nephrology Jigar Garcia. 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 Office Visit 06/09/2019 11:20a [facility] Internal Marco Carcamo MD M54.32 Sciatica , left Medicine - Suite side R D84.9 Immunodeficiency, unspecified N17.9 Acute kidney failure, unspecified E11.9 Type 2 diabetes mellitus without complications Office Visit 06/02/2019 8:30a Pulmonology And Sleep Joanne Campos, R06.83 [facility] DNP, RN, HANDBOOK WRITER-BC R53.83 Other fatigue Office Visit 06/01/2019 8:00a [facility] Nephrology Jigar King I12.9 Hypertensive MD [place] chronic kidney disease w stg 1-4/unsp chr kdny E87.5 Hyperkalemia N17.9 Acute kidney failure, unspecified E11.22 Type 2 diabetes mellitus w diabetic chronic kidney disease N18.3 Chronic kidney disease, stage 3 (moderate) Office Visit 05/19/2019 [facility] Damon Coch, E11.65 Type 2 diabetes 8:00a Endocrinology of mellitus with [facility] hyperglycemia E11.21 Type 2 diabetes mellitus with diabetic nephropathy I82.422 Acute embolism and thrombosis of left iliac vein Z79.84 [facility] (current) use of oral hypoglycemic drugs Office Visit 05/18/2019 8:00a [facility] Nephneda King N18.3 Chronic kidney MD [place] disease, stage 3 (moderate) E11.22 Type 2 diabetes mellitus w diabetic chronic kidney disease I82.402 Acute embolism and thombos unsp deep veins of l low extrem N17.9 Acute kidney failure, unspecified Office Visit 04/22/2019 8:00a [facility] Nephneda King E11.22 Type 2 diabetes MD Parker mellitus w diabetic chronic kidney disease N18.3 Chronic kidney disease, stage 3 (moderate) N17.9 Acute kidney failure, unspecified Office Visit 03/25/2019 8:00a [facility] Nephrology Jigar King N17.9 Acute kidney MD [place] failure, unspecified 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 N18.3 Chronic kidney disease, stage 3 (moderate) Office Visit 03/11/2019 8:00a [facility] Nephrology Jigar King N17.9 Acute kidney MD [place] failure, unspecified 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 N18.3 Chronic kidney disease, stage 3 (moderate) E11.40 Type 2 diabetes mellitus with diabetic neuropathy, unsp N39.0 Urinary tract infection, site not specified Office Visit 03/04/2019 8:00a [facility] Nephrology Jigar King N17.9 Acute kidney [...] infection, site not specified Office Visit 02/12/2019 [facility] Sue A40.1 Sepsis due to 9:53a Assoc,pc Tyrel, PA-C streptococcus, Hospitalists group B R65.21 Severe sepsis with septic shock E11.40 Type 2 diabetes mellitus with diabetic neuropathy, unsp E11.22 Type 2 diabetes mellitus w diabetic chronic kidney disease N18.3 Chronic kidney disease, stage 3 (moderate) I25.10 [facility] [place] coronary artery w/o ang pctrs Office Visit 02/11/2019 [facility] E11.40 Type 2 diabetes 9:51a Assoc,keri Santos MD mellitus with Hospitalists diabetic neuropathy, unsp 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 mellitus with Hospitalists diabetic neuropathy, unsp E11.22 Type 2 diabetes mellitus w diabetic chronic kidney disease N12 Tubulo-interstitial nephritis, not spcf as acute or chronic N18.3 Chronic kidney disease, stage 3 (moderate) Office Visit 02/09/2019 9:50a [facility] Iris A41.9 Sepsis, Assoc,keri Hopper D.O. unspecified Hospitalists organism R65.21 Severe sepsis with septic shock N12 Tubulo-interstitial nephritis, not spcf as acute or chronic N13.30 Unspecified hydronephrosis E11.40 Type 2 diabetes mellitus with diabetic neuropathy, unsp Office Visit 02/08/2019 [facility] Milly A41.9 Sepsis, 9:50a Asskeri pleitez MD unspecified Hospitalists organism R65.21 Severe sepsis with septic shock N12 Tubulo-interstitial nephritis, not spcf as acute or chronic N13.30 Unspecified hydronephrosis E11.9 Type 2 diabetes mellitus without complications Office Visit 02/07/2019 [facility] Bethany Saravia, A41.9 Sepsis, 9:50a keri Maria M.D. unspecified Hospitalists organism R65.21 Severe sepsis with septic shock N39.0 Urinary tract infection, site not specified Assessments Date Code Description Provider 07/29/2019 I12.9 Hypertensive chronic kidney disease Jigar Canales MD with stage 1 through stage 4 chronic kidney disease, or unspecified chronic kidney disease 07/29/2019 E11.22 Type 2 diabetes mellitus with Jigar Canales MD diabetic chronic kidney disease 07/29/2019 N18.3 Chronic kidney disease, stage 3 Jigar Canales MD (moderate) 07/29/2019 I82.412 Acute embolism and thrombosis of Jigar Canales MD left femoral vein 07/29/2019 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 left femoral vein 06/09/2019 I82.432 Acute embolism and thrombosis of Sukumar Prakash M.D. left popliteal vein 06/09/2019 M54.32 Sciatica, left side Marco Carcamo MD 06/09/2019 Z79.01 MCC (current) use of Sukumar Prakash M.D. anticoagulants 06/09/2019 D84.9 Immunodeficiency, unspecified Marco Carcamo MD 06/09/2019 N17.9 Acute kidney failure, unspecified Marco Carcamo MD 06/09/2019 E11.9 Type 2 diabetes mellitus without Marco Carcamo MD complications 06/02/2019 R06.83 Snoring Joanne Campos DNP, RN, [facility] 06/02/2019 R53.83 Other fatigue Joanne Campos DNP, RN, [facility] 06/01/2019 I12.9 Hypertensive chronic kidney disease Jigar Canales MD with stage 1 through stage 4 chronic kidney disease, or unspecified chronic kidney disease 06/01/2019 E87.5 Hyperkalemia Jigar Canales MD 06/01/2019 N17.9 Acute kidney failure, unspecified Jigar Canales MD 06/01/2019 E11.22 Type 2 diabetes mellitus with Jigar Canales MD diabetic chronic kidney disease 06/01/2019 N18.3 Chronic kidney disease, stage 3 Jigar Canales MD (moderate) 05/19/2019 E11.65 Type 2 diabetes mellitus with Nelson Vazquez MD hyperglycemia 05/19/2019 E11.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 2 diabetes mellitus with Nelson Vazquez MD diabetic nephropathy 05/19/2019 I82.422 Acute embolism and thrombosis of Nelson Vazquez MD left iliac vein 05/19/2019 Z79.84 [employer] (current) use of oral [...] 02/12/2019 E11.40 Type 2 diabetes mellitus with Sue O'anton, PA-C diabetic neuropathy, unspecified 02/12/2019 E11.22 Type 2 diabetes mellitus with Suesherrill Sarah, PA-C diabetic chronic kidney disease 02/12/2019 N18.3 Chronic kidney disease, stage 3 Sue O'anton, PA-C (moderate) 02/12/2019 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 diabetic neuropathy, unspecified 02/10/2019 E11.22 Type 2 diabetes mellitus with Iris Hopper D.O. diabetic chronic kidney disease 02/10/2019 N12 Tubulo-interstitial nephritis, not Iris Ward, D.O. specified as acute or chronic 02/10/2019 N18.3 Chronic kidney disease, stage 3 Iris Hopper, D.O. (moderate) 02/09/2019 R78.81 Bacteremia Mak Boswell M.D. 02/09/2019 A41.9 Sepsis, unspecified organism Iris Hopper D.O. 02/09/2019 R65.21 Severe sepsis with septic shock Iris Hopper D.O. 02/09/2019 N12 Tubulo-interstitial nephritis, not Tiffani IgnacioOYuniel specified as acute or chronic 02/09/2019 N13.30 Unspecified hydronephrosis Iris Hopper D.O. 02/09/2019 E11.40 Type 2 diabetes mellitus with Holli Ignacio.O. diabetic neuropathy, unspecified 02/08/2019 A41.9 Sepsis, unspecified [...] infection, site not Bethany Saravia M.D. specified Plan of Treatment Future Appointment(s):09/01/2019 11:30 am - Joanne Campos DNP, RN, HANDBOOK WRITER- at [facility]11/17/2019 8:00 am - Nelson Vazquez MD at [facility]08/11/2019 9:30 am - Vinayak Martinez M.D. at [facility]07/29/2019 - Jigar Canales MDI12.9 Hypertensive chronic kidney disease with stage 1 through stage 4 chronic kidney disease, or unspecified chronic kidney diseaseFollow up:1 month f /u with labsE11.22 Type 2 diabetes mellitus with diabetic chronic kidney bxrhqxeF39.3 Chronic kidney disease, stage 3 (moderate)I82.412 Acute embolism and thrombosis of left femoral veinZ79.01 [employer] driver (current) use of anticoagulants Functional Status Description No Information Available Mental Status Description No Information Available Referrals Refer to Dr Reason for Referral Status Appt Date Wojciech Arthur MD sciatica after a fall (November 2018). moderate to Sent /0000 severe narrowing L3-L4, L4-5. chronic compression deformity L1. [address] [facility] [address] [place] [address] [phone]
--- OUTSIDE RECORDS SUMMARY | 2019-08-04 12:30 | XMS REPORT | Continuity of Care Document ---
:1945 External Reference #:[id number] Author Name Sukumar Prakash M.D. (transmitted by agent of provider Mela Keenan) Address [address] [place] [id number] Care Team Providers Name Role Phone Chuy Escalera MD - Endocrinology, Care Team Information Rewrite Editor Diabetes & Metabolism Prabha Washington MD - Internal Care Team Information Rewrite Editor [phone] Medicine Marco Carcamo MD - Hospitalist Care Team Information Rewrite Editor [phone] Problems Active Problems Provider Date Type 2 diabetes mellitus Kiran Davis, 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/2007 Martir,GELYP Neuralgia Neuritis & Radiculitis Kiran Davis, 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/2007 Unspecified Martir,FACP Lyme disease Kiran Davis, 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/2007 Martir,FACP Pure hypercholesterolemia Kiran Davis, 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/2007 Martir,FACP 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, 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 Martir,FACP Anticoagulants Penitentiary (Current) Use Kiran Davis, 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/2007 Encounter Martir,FACP Sleep apnea Kiran Davis, Onset: 06/18/2007 Martir,FACP Peripheral venous insufficiency Kiran Davis, Onset: 06/18/2007 Martir,FACP Diabetic polyneuropathy Kiran Davis, Onset: 10/07/2007 Martir,FACP 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 Kiran Davis, Onset: 06/17/2008 mellitus Martir,FACP Hyperlipidemia Wojciech Jones M.D., [facility], Onset: 04/16/2013 [facility] Benign essential hypertension Wojciech Jones M.D., [facility], Onset: 04/16/2013 [facility] Chronic ischemic heart disease Wojciech Jones M.D., [facility], Onset: 04/16/2013 [facility] Essential hypertension Wojciech Jones M.D., [facility], Onset: 08/01/2015 [facility] 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., [facility], 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 [facility] Obesity Wojciech Jones M.D., [facility], Onset: 06/18/2016 [facility] Localized, primary osteoarthritis Sofya Borrego [...] Ferrousul 1 tab by mouth 3 90tabs [facility], 03/25/2019 325(65Fe) times a week MD mg Tablets Sodium Bicarbonate 2 tab by mouth 360tabs [facility] [place], 03/11/2019 twice times MD 650mg Tablets daily Gabapentin By mouth twice [facility], 03/11/2019 300mg daily MD Capsules Lisinopril 1 [...] Regadenoson, 0.1 MG Juan C Grey, DO [facility] 11/27/2018 Injection Technetium TC 99M Juan C Grey, DO [facility] 11/27/2018 Tetrofosmin, Per Unit Dose Up To 40 Millicuries Injection Technetium TC 99M Juan C Grey, DO [facility] 11/27/2018 Tetrofosmin, Per Unit Dose Up To 40 Millicuries Injection Depomedrol 40MG Sofya Borrego M.D. 11/03/2018 Injection Celestone 3 mg and 3mg Mela Novoa, 05/05/2014 Injection M.DYuniel Celestone 3 mg and 3mg Mela Novoa, 04/06/2014 Injection M.DYuniel Immunizations CPT Code Status Date Vaccine Lot # [id number] Given 02/23/2010 Influenza Virus 3Yrs & Over 85574 Given 02/15/2009 Influenza Virus Vaccine, Pandemic Formulation 53367 Given 02/15/2009 Influenza Virus Vaccine, Pandemic Formulation [id number] 82595 Given 02/15/2009 Administration Swine Flu Shot 42747 Given 03/18/2007 Influenza Virus 3Yrs & Over 35466 Given 03/18/2007 Influenza Virus 3Yrs & Over [id number] 62074 Given 02/21/2000 Influenza Virus 3Yrs & Over [...] Date Facility Test Result H/L Range Note Urinalysis Profile 06/23/2019 [facility] Urine Color Yellow [address] [place] [address] [phone] Urine Appearance Cloudy Urine Specific Barker 1.010 Normal 1.010-1.030 Urine pH 7.0 Normal 5-9 Urine Urobilinogen Negative Negative Urine Ketones Negative Negative Urine Protein Negative Negative Urine Leukocytes 3+ Abnormal Negative Urine Blood 1+ Abnormal Negative * * Abnormal Negative 1 Urine Nitrite Positive Abnormal Negative Urine Bilirubin Negative Negative Urine Glucose Negative Negative Urine White Blood Cell 3+(>20/hpf) Abnormal Absent Urine Red Blood Cell 1+(3-5/hpf) Abnormal Absent Urine Bacteria 1+ Abnormal Absent Urine Transitional Epithelial Present Abnormal Absent Urine Culture And 06/23/2019 [facility] Urine SEE RESULT [address] [place] [address] [phone] CBC Auto Diff 06/23/2019 [facility] White Blood 8.6 10^3/uL Normal 3.5-[address] Count 0.8 [place] [address] [phone] Red Blood Count 3.84 10^6/uL Low 4.18-5.48 [...] Red Blood Cells % 0.0 Comp Metabolic 06/23/2019 [facility] Sodium 137 mmol/L Normal 135-145 Panel [address] [place] [address] [phone] Potassium 4.5 mmol/L Normal 3.5-5.0 Chloride 108 [...] Egfr Non- 33.8 >60 Egfr 40.9 >60 3 Influenza A & B 06/23/2019 [facility] Flu AB Disclaimer (SEE NOTE) 4 Request [address] [place] [address] [phone] Influenza A Molecular Negative Negative Influenza B Molecular Negative Negative 5 Laboratory test 06/15/2019 [facility] Albumin 4.7 g/dL Normal 3.2-5.[address] [place] [address] [phone] Magnesium 2.2 mg/dL Normal 1.9-2.7 Neph Routine 06/15/2019 [facility] Total Protein Random 29 mg/ dL [address] [place] [address] [phone] Creatinine Random Urine 59.48 mg/dL CBC Auto 06/15/2019 [facility] White Blood 8.3 10^3/uL Normal 3.5-10.[address] [place] [address] [phone] Red Blood Count 4.00 10^6/uL Low 4.18-5.48 [...] Blood Cells % 0.0 Basic Metabolic 06/15/2019 [facility] Sodium 140 mmol/L Normal 135-[address] [place] [address] [phone] Potassium 4.7 mmol/L Normal 3.5-5.0 Chloride 110 mmol/L Normal 101-111 Co2 Carbon Dioxide 23 mmol/L Normal 22-32 Anion Gap 7 mmol/L Normal 2-11 Glucose 99 mg/dL Normal 70-100 Blood Urea Nitrogen 42 mg/dL High 6-24 Creatinine 1.91 mg/dL High 0.67-1.17 BUN/Creatinine Ratio 22.0 High 8-20 Calcium 9.4 mg/dL Normal 8.6-10.3 Egfr Non- 34.8 >60 Egfr 42.1 >60 6 Urinalysis 06/15/2019 [facility] Urine 3+(>20/hpf) Abnormal Absent Profile [address] [place] [address] Blood [phone] Cell Urine Red Blood Cell 1+(3-5/hpf) Abnormal Absent Urine Bacteria 1+ Abnormal Absent Urine Color Yellow Urine Appearance Cloudy Urine Specific Barker 1.011 Normal 1.010-1.030 Urine pH 6.0 Normal 5-9 Urine Urobilinogen Negative Negative Urine Ketones Negative Negative Urine Protein Negative Negative Urine Leukocytes 2+ Abnormal Negative Urine Blood Negative Negative Urine Nitrite Positive Abnormal Negative Urine Bilirubin Negative Negative Urine Glucose Negative Negative Urine Culture And 06/15/2019 [facility] Urine Culture SEE [address] [place] [address] BELOW [phone] Immunoglobulins 06/15/2019 [facility] Immunoglobulin G 1330 767 - 8 Serum Quant mg/dL 1590 [place], [place] [address] [phone] Immunoglobulin M 121 mg/dL 37 - 286 Immunoglobulin A 145 mg/dL 61 - 356 Laboratory test 05/30/2019 [facility] Albumin 4.8 g/dL Normal 3.2-5.[address] [place] [address] [phone] Neph Routine 05/30/2019 [facility] Total 34 mg/[place] [address] Random Urine [phone] Creatinine Random Urine 64.28 mg/dL Laboratory test 05/30/2019 [facility] Hemoglobin A1c 7.1 % High 4.0-5.[address] (Glyco HGB) [place], [place] [id number] [phone] CBC Auto Diff 05/30/2019 [facility] White Blood 8.4 Normal 3.5 -10.[address] Count 10^3/[place] [address] [phone] Red Blood Count 4.23 10^6/uL Normal 4.18-5.48 [...] Blood Cells % 0.0 Basic Metabolic 05/30/2019 [facility] Sodium 141 mmol/L Normal 135-[address] [place] [address] [phone] Chloride 111 mmol/L Normal 101-111 Co2 Carbon Dioxide 26 mmol/L Normal 22-32 Calcium 9.6 mg/dL Normal 8.6-10.3 Potassium 5.4 mmol/L High 3.5-5.0 Anion Gap 4 mmol/L Normal 2-11 Glucose 118 mg/dL High 70-100 Blood Urea Nitrogen 39 mg/dL High 6-24 Creatinine 2.03 mg/dL High 0.67-1.17 BUN/Creatinine Ratio 19.2 Normal 8-20 Egfr Non- 32.4 >60 Egfr 39.3 >60 10 Urine Culture And 05/30/2019 [facility] Urine Culture SEE RESULT [address] [place] [address] [phone] Urinalysis Profile 05/30/2019 [facility] Urine Color Yellow [address] [place] [address] [phone] Urine Appearance Cloudy Urine Specific Barker 1.011 Normal 1.010-1.030 Urine pH 7.0 Normal 5-9 Urine Urobilinogen Negative Negative Urine Ketones Negative Negative Urine Protein Negative Negative Urine Leukocytes 3+ Abnormal Negative Urine Blood Negative Negative * * Abnormal Negative 12 Urine Nitrite Positive Abnormal Negative Urine Bilirubin Negative Negative Urine Glucose Negative Negative Urine White Blood Cell 3+(>20/hpf) Abnormal Absent Urine Red Blood Cell 1+(3-5/hpf) Abnormal Absent Urine Bacteria Absent Absent Urine Squamous Epithelial Cell Present Abnormal Absent Urine Transitional Epithelial Present Abnormal Absent Urine Culture And 05/16/2019 [facility] Urine Culture SEE RESULT [address] [place] [address] [phone] Neph Routine 05/16/2019 [facility] Total Protein 29 mg/dL [address] [place] [address] [phone] Creatinine Random Urine 58.65 mg/dL CBC Auto 05/16/2019 [facility] White Blood 7.2 10^3/uL Normal 3.5-10.[address] [place] [address] [phone] Red Blood Count 3.80 10^6/uL Low 4.18-5.48 [...] Blood Cells % 0.0 Urinalysis Profile 05/16/2019 [facility] Urine Color Yellow [address] [place] [address] [phone] Urine Appearance Cloudy Urine Specific Barker 1.010 Normal 1.010-1.030 Urine pH 7.0 Normal [...] Cells Present Abnormal Absent Basic Metabolic 05/16/2019 [facility] Sodium 139 mmol/L Normal 135-[address] [place] [address] [phone] Potassium 4.8 mmol/L Normal 3.5-5.0 Chloride 108 mmol/L Normal 101-111 Co2 Carbon Dioxide 24 mmol/L Normal 22-32 Anion Gap 7 mmol/L Normal 2-11 Glucose 131 mg/dL High 70-100 Blood Urea Nitrogen 30 mg/dL High 6-24 Creatinine 1.61 mg/dL High 0.67-1.17 BUN/Creatinine Ratio 18.6 Normal 8-20 Calcium 9.1 mg/dL Normal 8.6-10.3 Egfr Non- 42.4 >60 Egfr 51.3 >60 14 Urine Culture And 04/21/2019 [facility] Urine Culture SEE RESULT [address] [place] [address] [phone] Laboratory test 04/21/2019 [facility] Ferritin 60.5 ng/mL Normal 24-[address] [place] [address] [phone] Iron & Iron 04/21/2019 [facility] Iron 38 g/dL Low 50-2 Binding Capacity [address] [place] [address] [phone] Unsaturated Iron Binding < 394 g/dL Total Iron Binding Capacity 409 g/dL Normal 250-450 Transferrin 292 mg/dL Normal 203-362 % Iron Saturation 9 % Low 15-55 Neph Routine 04/21/2019 [facility] Total Protein Random 33 mg/ dL [address] [place] [address] [phone] Creatinine Random Urine 50.15 mg/dL 17 CBC Auto 04/21/2019 [facility] White Blood 9.0 10^3/uL Normal 3.5-10.[address] [place] [address] [phone] Red Blood Count 3.49 10^6/uL Low 4.18-5.48 [...] Blood Cells % 0.0 Laboratory test 04/21/2019 [facility] Albumin 4.5 g/dL Normal 3.2-5.2 finding [address] [place] [address] [phone] Urinalysis 04/21/2019 [facility] Urine Color Yellow Profile [address] [place] [address] [phone] Urine Appearance Cloudy Urine Specific Barker 1.010 Normal 1.010-1.030 Urine pH 6.0 Normal 5-9 Urine Urobilinogen Negative Negative Urine Ketones Negative Negative Urine Protein Negative Negative Urine Leukocytes 1+ Abnormal Negative Urine Blood Negative Negative * * Abnormal Negative 18 Urine Nitrite Negative Negative Urine Bilirubin Negative Negative Urine Glucose Negative Negative Urine White Blood Cell 2+(11-20/hpf) Abnormal Absent Urine Red Blood Cell Absent Absent Urine Bacteria Absent Absent Basic Metabolic 04/21/2019 [facility] Sodium 140 mmol/L Normal 135-145 Panel [address] [place] [address] [phone] Potassium 4.7 mmol/L Normal 3.5-5.0 Chloride 111 mmol/L Normal 101-111 Co2 Carbon Dioxide 22 mmol/L Normal 22-32 Anion Gap 7 mmol/L Normal 2-11 Glucose 104 mg/dL High 70-100 Blood Urea Nitrogen 43 mg/dL High 6-24 Creatinine 1.81 mg/dL High 0.67-1.17 BUN/Creatinine Ratio 23.8 High 8-20 Calcium 9.0 mg/dL Normal 8.6-10.3 Egfr Non- 37.0 >60 Egfr 44.8 >60 19 Neph Routine 03/24/2019 [facility] Total Protein Random 27 mg/ dL [address] [place] [address] [phone] Creatinine Random Urine 60.28 mg/dL Urine Culture And 03/24/2019 [facility] Urine Culture SEE RESULT [address] [place] [address] [phone] Laboratory test 03/24/2019 [facility] Ferritin 80.8 ng/mL Normal 24-[address] [place] [address] [phone] CBC Auto Diff 03/24/2019 [facility] White Blood 9.3 Normal 3.5 - [address] Count 10^3/uL 10.8 [place] [address] [phone] Red Blood Count 3.00 10^6/uL Low 4.18-5.48 [...] Blood Cells % 0.1 Basic Metabolic 03/24/2019 [facility] Sodium 139 mmol/L Normal 135-145 Panel [address] [place] [address] [phone] Potassium 5.0 mmol/L Normal 3.5-5.0 Chloride 111 mmol/L Normal 101-111 Co2 Carbon Dioxide 22 mmol/L Normal 22-32 Anion Gap 6 mmol/L Normal 2-11 Glucose 103 mg/dL High 70-100 Blood Urea Nitrogen 29 mg/dL High 6-24 Creatinine 1.88 mg/dL High 0.67-1.17 BUN/Creatinine Ratio 15.4 Normal 8-20 Calcium 8.6 mg/dL Normal 8.6-10.3 Egfr Non- 35.5 >60 Egfr 42.9 >60 21 Iron & Iron Binding 03/24/2019 [facility] Iron 57 g/dL Normal 50-212 Capacity [address] [place] [address] [phone] Unsaturated Iron Binding < 342 g/dL Total Iron Binding Capacity 357 g/dL Normal 250-450 Transferrin 255 mg/dL Normal 203-362 % Iron Saturation 16 % Normal 15-55 Laboratory test 03/24/2019 [facility] Albumin 4.0 g/dL Normal 3.2-5.2 finding [address] [place] [address] [phone] Urinalysis 03/24/2019 [facility] Urine Color Yellow Profile [address] [place] [address] [phone] Urine Appearance Cloudy Urine Specific Barker 1.010 Normal 1.010-1.030 Urine pH 6.0 Normal 5-9 Urine Urobilinogen Negative Negative Urine Ketones Negative Negative Urine Protein Negative Negative Urine Leukocytes Trace Abnormal Negative Urine Blood Negative Negative * * Abnormal Negative 22 Urine Nitrite Negative Negative Urine Bilirubin Negative Negative Urine Glucose Negative Negative Urine White Blood Cell 1+(6-10/hpf) Abnormal Absent Urine Red Blood Cell Absent Absent Urine Bacteria Absent Absent Urinalysis Profile 03/10/2019 [facility] Urine Color Yellow 23 [address] [place] [address] [phone] Urine Appearance Clear Urine Specific Barker 1.010 Normal 1.010-1.030 Urine pH 6.0 Normal [...] Bacteria Absent Absent Urine Culture And 03/10/2019 [facility] Urine Culture SEE RESULT [address] [place] [address] [phone] Laboratory test 03/10/2019 [facility] Creatinine 47.78 mg/dL [address] [place] [address] [phone] Total Protein Random Urine 48 mg/dL 27 Basic Metabolic 03/10/2019 [facility] Sodium 139 mmol/L Normal 135-[address] [place] [address] [phone] Potassium 4.3 mmol/L Normal 3.5-5.0 Chloride 113 mmol/L High 101-111 Co2 Carbon Dioxide 16 mmol/L Low 22-32 Anion Gap 10 mmol/L Normal 2-11 Glucose 128 mg/dL High 70-100 Blood Urea Nitrogen 50 mg/dL High 6-24 Creatinine 2.47 mg/dL High 0.67-1.17 BUN/Creatinine Ratio 20.2 High 8-20 Calcium 8.9 mg/dL Normal 8.6-10.3 Egfr Non- 25.9 >60 Egfr 31.3 >60 28 CBC Auto 03/10/2019 [facility] White Blood 10.9 10^3/uL High 3.5-10.[address] [place] [address] [phone] Red Blood Count 3.10 10^6/uL Low 4.18-5.48 [...] Blood Cells % 0.0 Laboratory test 03/10/2019 [facility] Albumin 4.2 g/dL Normal 3.2-5.2 29 finding [address] [place] [address] [phone] Iron & Iron 03/04/2019 [facility] Iron 56 g/dL Normal 50- 212 30 Binding Capacity [address] [place] [address] [phone] Unsaturated Iron Binding < 332 g/dL Total Iron Binding Capacity 347 g/dL Normal 250-450 Transferrin 248 mg/dL Normal 203-362 % Iron Saturation 16 % Normal 15-55 Laboratory test 03/04/2019 [facility] Ferritin 122.7 ng/mL Normal 24-336 31 finding [address] [place] [address] [phone] Urinalysis 03/04/2019 [facility] Urine Color Yellow Profile [address] [place] [address] [phone] Urine Appearance Cloudy Urine Specific Barker 1.011 Normal 1.010-1.030 Urine pH 6.0 Normal 5-9 Urine Urobilinogen Negative Negative Urine Ketones Negative Negative Urine Protein Negative Negative Urine Leukocytes 3+ Abnormal Negative Urine Blood 2+ Abnormal Negative Urine Nitrite Negative Negative Urine Bilirubin Negative Negative Urine Glucose Negative Negative Urine White Blood Cell 3+(>20/hpf) Abnormal Absent Urine Red Blood Cell 3+(>10/hpf) Abnormal Absent Urine Bacteria Absent Absent CBC Auto 03/04/2019 [facility] White Blood 9.5 10^3/uL Normal 3.5-10.8 Diff 101 [facility] [place] [place] [address] [phone] Red Blood Count 3.07 10^6/uL Low 4.18-5.48 [...] Cells % 0.0 Urine Culture And 03/04/2019 [facility] Urine SEE RESULT [address] [place] [address] [phone] Laboratory test 03/04/2019 [facility] Albumin 3.9 g/dL Normal 3.2- [address] 5.2 [place] [address] [phone] Hemoglobin A1c (Glyco HGB) 7.5 % High 4.0-5.6 34 Urinalysis Profile 03/04/2019 [facility] Urine Color Yellow [address] [place] [address] [phone] Urine Appearance Clear Urine Specific Barker 1.010 Normal 1.010-1.030 Urine pH 7.0 Normal 5-9 Urine Urobilinogen Negative Negative Urine Ketones Negative Negative Urine Protein Negative Negative Urine Leukocytes Trace Abnormal Negative Urine Blood Negative Negative Urine Nitrite Negative Negative Urine Bilirubin Negative Negative Urine Glucose Negative Negative Urine White Blood Cell 1+(6-10/hpf) Abnormal Absent Urine Red Blood Cell Absent Absent Urine Bacteria Absent Absent Comp Metabolic 03/04/2019 [facility] Sodium 142 mmol/L Normal 135-[address] [place] [address] [phone] Potassium 4.6 mmol/L Normal 3.5-5.0 Co2 Carbon [...] Egfr Non- 19.1 >60 Egfr 23.1 >60 35 Chloride 120 mmol/L High 101-111 Anion Gap 7 mmol/L Normal 2-11 CBC Auto 03/04/2019 [facility] White Blood 10.8 10^3/uL Normal 3.5-10.[address] [place] [address] [phone] Red Blood Count 3.37 10^6/uL Low 4.18-5.48 [...] Blood Cells % 0.0 Basic Metabolic 03/04/2019 [facility] Sodium 140 mmol/L Normal 135-[address] [place] [address] [phone] Potassium 5.0 mmol/L Normal 3.5-5.0 Chloride 116 mmol/L High 101-111 Co2 Carbon Dioxide 14 mmol/L Critical low 22-32 36 Anion Gap 10 mmol/L Normal 2-11 Glucose 118 mg/dL High 70-100 Blood Urea Nitrogen 73 mg/dL High 6-24 Creatinine 3.28 mg/dL High 0.67-1.17 BUN/Creatinine Ratio 22.3 High 8-20 Calcium 8.8 mg/dL Normal 8.6-10.3 Egfr Non- 18.6 >60 Egfr 22.6 >60 37 Basic Metabolic 03/04/2019 [facility] Sodium 142 mmol/L Normal 135-[address] [place] [address] [phone] Potassium 4.5 mmol/L Normal 3.5-5.0 Glucose 125 mg/dL High 70-100 Blood Urea Nitrogen 72 mg/dL High 6-24 Creatinine 3.24 mg/dL High 0.67-1.17 BUN/Creatinine Ratio 22.2 High 8-20 Calcium 8.5 mg/dL Low 8.6-10.3 Egfr Non- 18.9 >60 Egfr 22.9 >60 38 Chloride 118 mmol/L High 101-111 Co2 Carbon Dioxide 14 mmol/L Critical low 22-32 39 Anion Gap 10 mmol/L Normal 2-11 Neph Routine 03/04/2019 [facility] Total Protein Random 69 mg/ dL [address] [place] [address] [phone] Creatinine Random Urine 72.89 mg/dL 41 1 *Ascorbic acid is present which may interfere with detection of blood. 2 SEE RESULT BELOW Name: MANCINIDARIO : [address]: Dieter Lin MD Acct: [id number] Unit: [id number] AGE: 73 Location: ED Re06/23/19 SEX: M Status: DEP ER SPEC: [id number] JAROD: 06/23/19 [facility] DR: Dieter Lin MD REQ: [id number] RECD: 06/23/19 STATUS: [facility] DR: Marco Carcamo MD _ SOURCE: URINE [facility]: ORDERED: Urine Culture Procedure Result Reported Site Urine Culture Final 06/25/19912 ML Organism 1 ENTEROCOCCUS FAECALIS [place] Count >100,000 (Many) CFU/ML 1. ENTEROCOCCUS FAECALIS M.I.C. RX --------- ------ Ampicillin <=2 S Penicillin 2 S Ciprofloxacin <=0.5 S Gentamicin High Level S Levofloxacin 1 S Nitrofurantoin <=16 S * Quinupristin/Dalfopristin 4 R * Streptomycin High Level S Tetracycline >=16 R Tigecycline <=0.12 S Vancomycin 1 S Imipenem-Deduced S * Ampicillin/Sulbactam-Deduced S * These antibiotics are not available in the [facility] Formulary Contact the Microbiology Department for any additional antibiotic reporting. * ML - [facility] . END OF REPORT DEPARTMENT OF PATHOLOGY, [address] [place] [address] Jorge Luis Davis M.D. Director [facility] # [id number] 3 Because ethnic data is not always [...] 5 Kidney failure <15 (or dialysis) 4 Suboptimal collection technique may reduce sensitivity of test. Refer to the [employer] Test Catalog for collection information: [email or web address] As with all diagnostic procedures, the laboratory results obtained should be used in conjunction with other clinical information available to the physician, including confirmation by another method, as applicable. 5 It Risk And Assurance Senior Manager: [id number] 6 Because ethnic data is not always [...] 5 Kidney failure <15 (or dialysis) 7 SEE RESULT BELOW Name: DARIO MANCINI : [address]: Marco Carcamo MD Acct: [id number] Unit: [id number] AGE: 73 Location: LAB Re06/15/19 SEX: M Status: REG REF SPEC: [id number] JAROD: 06/15/19-[address]: Jigar Canales MD REQ: [id number] RECD: 06/15/19 STATUS: COMP _ SOURCE: URINE SPDESC: ORDERED: Urine Culture Procedure Result Reported Site Urine Culture Final 06/18/19- 0833 ML Organism 1 ENTEROCOCCUS FAECALIS [place] Count >100,000 (Many) CFU/ML 1. ENTEROCOCCUS FAECALIS M.I.C. RX --------- ------ Ampicillin <=2 S Penicillin 4 S Ciprofloxacin <=0.5 S Gentamicin High Level S Levofloxacin 1 S Nitrofurantoin <=16 S * Quinupristin/Dalfopristin 8 R * Streptomycin High Level S Tetracycline >=16 R Tigecycline <=0.12 S Vancomycin 1 S Imipenem-Deduced S * Ampicillin/Sulbactam-Deduced S * These antibiotics are not available in the [facility] Formulary Contact the Microbiology Department for any additional antibiotic reporting. * ML - Main Lab . END OF REPORT DEPARTMENT OF PATHOLOGY, [address] [place] [address] Jorge Luis Davis M.D. Director [facility] # [id number] Test Performed by: [facility] [place] [address] Technical Publications Writer: Prosper Davila M.D. Ph.D.; CLIA# [id number] 9 Therapeutic target for the treatment of diabetes mellitus patients is <7% HBA1C, and in selective patients <6.0%. Please refer to [place] [employer] diabetic care guidelines for further information. 10 Because ethnic data is not always [...] 5 Kidney failure <15 (or dialysis) 11 SEE RESULT BELOW Name: DARIO MANCINI : [address]: Jigar Canales MD Acct: [id number] Unit: [id number] AGE: 73 Location: LAB Re05/30/19 SEX: M Status: REG REF SPEC: [id number] JAROD: 05/30/19-1310 [facility] DR: Jigar Canales MD REQ: [id number] RECD: 05/30/19 STATUS: [facility] DR: Marco Vazquez MD _ SOURCE: URINE SPDESC: ORDERED: Urine Culture Procedure Result Reported Site Urine Culture Final 06/01/19- 0841 ML Organism 1 ENTEROCOCCUS FAECALIS [place] Count 75-100,000 (Many) CFU/ML 1. ENTEROCOCCUS FAECALIS M.I.C. RX --------- ------ Ampicillin <=2 S Penicillin 4 S Ciprofloxacin <=0.5 S Gentamicin High Level S Levofloxacin 1 S Nitrofurantoin <=16 S * Quinupristin/Dalfopristin 8 R * Streptomycin High Level S Tetracycline >=16 R Tigecycline <=0.12 S Vancomycin 1 S Imipenem-Deduced S * Ampicillin/Sulbactam-Deduced S CONTINUED ON NEXT PAGE DEPARTMENT OF PATHOLOGY, [address] [place] [address] Jorge Luis Davis M.D. Director [facility] # [id number] Specimen: [id number] Collected: 05/30/19-131 Received: 05/30/19132 (Continued) Procedure Result Reported Site Urine Culture Final (continued) * These antibiotics are not available in the [facility] Formulary Contact the Microbiology Department for any additional antibiotic reporting. * ML - Main Lab . END OF REPORT DEPARTMENT OF PATHOLOGY, [address] [place] [address] Jorge Luis Davis M.D. Director [facility] # [id number] 12 *Ascorbic acid is present which may interfere with detection of blood. 13 SEE RESULT BELOW Name: DARIO MANCINI : [address]: Jigar Canales MD Acct: [id number] Unit: [id number] AGE: 73 Location: LAB Re05/16/19 SEX: M Status: REG REF SPEC: [id number] JAROD: 05/16/19-[address]: Jigar Canales MD REQ: [id number] RECD: 05/16/19 STATUS: COMP _ SOURCE: URINE SPDESC: ORDERED: Urine Culture Procedure Result Reported Site Urine Culture Final 05/18/19741 ML Organism 1 ENTEROCOCCUS FAECALIS [place] Count >100,000 (Many) CFU/ML Organism 2 NORMAL CADENCE [place] Count 10-25,000 (Moderate) CFU/ML 1. ENTEROCOCCUS FAECALIS M.I.C. RX --------- ------ Ampicillin <=2 S Penicillin 4 S Ciprofloxacin <=0.5 S Gentamicin High Level S Levofloxacin 1 S Nitrofurantoin <=16 S * Quinupristin/Dalfopristin 8 R * Streptomycin High Level S Tetracycline >=16 R Tigecycline <=0.12 S Vancomycin 1 S Imipenem-Deduced S * Ampicillin/Sulbactam-Deduced S CONTINUED ON NEXT PAGE DEPARTMENT OF PATHOLOGY, [address] [place] [address] Jorge Luis Davis M.D. Director [facility] # [id number] Specimen: [id number] Collected: 05/16/19 Received: 05/16/19 (Continued) Procedure Result Reported Site Urine Culture Final (continued) * These antibiotics are not available in the [facility] Formulary Contact the Microbiology Department for any additional antibiotic reporting. * ML - [facility] . END OF REPORT DEPARTMENT OF PATHOLOGY, [address] [place] [address] Jorge Luis Davis M.D. Director [facility] # [id number] 14 Because ethnic data is not always [...] 5 Kidney failure <15 (or dialysis) 15 SEE RESULT BELOW Name: DARIO MANCINI : [address]: Jigar Canales MD Acct: [id number] Unit: [id number] AGE: 73 Location: LAB Re04/21/19 SEX: M Status: REG REF SPEC: [id number] JAROD: 04/21/[address]: Jigar Canales MD REQ: [id number] RECD: 04/21/19 STATUS: COMP _ SOURCE: URINE SPDESC: ORDERED: Urine Culture Procedure Result Reported Site Urine Culture Final 04/22/19- 1440 ML No growth of clinically significant organisms * ML - Main Lab . END OF REPORT DEPARTMENT OF PATHOLOGY, [address] [place] [address] Jorge Luis Davis M.D. Director [facility] # [id number] CATH SPECIMEN 17 CATH SPECIMEN 18 *Ascorbic acid is present which may interfere with detection of blood. 19 Because ethnic data is not always [...] 5 Kidney failure <15 (or dialysis) 20 SEE RESULT BELOW Name: DARIO MANCINI : [address]: Jigar Canales MD Acct: [id number] Unit: [id number] AGE: 73 Location: LAB Re03/24/19 SEX: M Status: REG REF SPEC: [id number] JAROD: 03/24/[address]: Jigar Canales MD REQ: [id number] RECD: 03/24/19 STATUS: COMP _ SOURCE: URINE SPDESC: ORDERED: Urine Culture Procedure Result Reported Site Urine Culture Final 03/25/19- 1459 ML No Growth (<1,000 CFU/mL) * ML - Main Lab . END OF REPORT DEPARTMENT OF PATHOLOGY, [address] [place] [address] Jorge Luis Davis M.D. Director [facility] # [id number] 21 Because ethnic data is not always [...] 5 Kidney failure <15 (or dialysis) 22 *Ascorbic acid is present which may interfere with detection of blood. 23 Next week. 24 *Ascorbic acid is present which may interfere with detection of blood. 25 SEE RESULT BELOW Name: DARIO MANCINI : [address]: Jigar Canales MD Acct: [id number] Unit: [id number] AGE: 73 Location: LAB Re03/10/19 SEX: M Status: REG REF SPEC: [id number] JAROD: 03/10/[address]: Jigar Canales MD REQ: [id number] RECD: 03/10/19 STATUS: COMP _ SOURCE: URINE SPDESC: ORDERED: Urine Culture Procedure Result Reported Site Urine Culture Final 03/11/19- 7753 ML No Growth (<1,000 CFU/mL) * ML - Main Lab . END OF REPORT DEPARTMENT OF PATHOLOGY, [address] [place] [address] Jorge Luis Davis M.D. Director [facility] # [id number] Next week. Next week. 28 Because ethnic data is not always [...] 5 Kidney failure <15 (or dialysis) 29 Next week. 30 Today 31 Today 32 SEE RESULT BELOW Name: DARIO MANCINI : [address]: Jigar Canales MD Acct: [id number] Unit: [id number] AGE: 73 Location: LAB Re03/04/19 SEX: M Status: REG REF SPEC: [id number] JAROD: 03/04/1944 [facility] DR: Jigar Canales MD REQ: [id number] RECD: 03/04/19 STATUS: [facility] DR: Prabha Washington MD PC _ SOURCE: URINE SPDESC: ORDERED: Urine Culture Procedure Result Reported Site Urine Culture Final 03/05/19- 1548 ML Organism 1 NANCY ALBICANS [place] Count 25-50,000 (Moderate) CFU/ML * ML - Main Lab . END OF REPORT DEPARTMENT OF PATHOLOGY, [address] [place] [address] Jorge Luis Davis M.D. Director [facility] # [id number] 33 Today 34 Therapeutic target for the treatment of diabetes mellitus patients is <7% HBA1C, and in selective patients <6.0%. Please refer to [place] [employer] diabetic care guidelines for further information. 35 Because ethnic data is not always [...] 5 Kidney failure <15 (or dialysis) 36 Critical Result CO2:14 Called to REMBERTO Bello at: 10:23:35 by:[id number] Read back by:REMBERTO Bello 37 Because ethnic data is not always [...] 5 Kidney failure <15 (or dialysis) 38 Because ethnic data is not always readily [...] 15-29 5 Kidney failure <15 (or dialysis) 39 Critical Result CO2:14 Called to [id number] at: 19:35:48 by:[id number] Read back by:[id number] 40 Today 41 Today Procedures Date Code Description Status 02/09/2019 81709 ECHO Transthorasic Realtime 2D W Doppler & Color Flow Completed Hosp 05/15/2010 552863513 Diabetic Foot Exam Completed 04/28/2010 069559864 Diabetic Foot Exam Completed 02/28/2010 496117247 Diabetic Retinal Eye Exam Completed 04/01/2008 397812404 Diabetic Retinal Eye Exam Completed 02/26/2008 599760109 Diabetic Foot Exam Completed 02/05/2008 497399772 Diabetic Foot Exam Completed 02/25/2007 776375257 Diabetic Retinal Eye Exam Completed Medical Devices Description No Information Available Encounters Type Date Location Provider Dx Diagnosis Office Visit 06/17/2019 [facility] Nephrology Jigar A. I12.9 Hypertensive chronic 8:00a MD [place] kidney disease w stg 1-4/unsp chr kdny E11.22 Type 2 diabetes mellitus w diabetic chronic kidney disease N18.3 Chronic kidney disease, stage 3 (moderate) Office Visit 06/09/2019 4:00p [facility] Sukumar Prakash, I82.412 Acute embolism [facility] Martir and thrombosis of AT [place] left femoral vein I82.432 Acute embolism and thrombosis of left popliteal vein Z79.01 custodial (current) use of anticoagulants Office Visit 06/09/2019 11:20a [facility] Internal Marco Carcamo MD M54.32 Sciatica , left Medicine - Suite side R D84.9 Immunodeficiency, unspecified N17.9 Acute kidney failure, unspecified E11.9 Type 2 diabetes mellitus without complications Office Visit 06/02/2019 8:30a Pulmonology [facility] Sleep Joanne Campos, R06.83 [facility] ABELARDO, RN, BRUSHER MACHINE-BC R53.83 Other fatigue Office Visit 06/01/2019 8:00a [facility] Nephrology Jigar A. I12.9 Hypertensive MD [place] chronic kidney disease w stg 1-4/unsp chr kdny E87.5 Hyperkalemia N17.9 Acute kidney failure, unspecified E11.22 Type 2 diabetes mellitus w diabetic chronic kidney disease N18.3 Chronic kidney disease, stage 3 (moderate) Office Visit 05/19/2019 [facility] Damon Coch, E11.65 Type 2 diabetes 8:00a Endocrinology of mellitus with [facility] hyperglycemia E11.21 Type 2 diabetes mellitus with diabetic nephropathy I82.422 Acute embolism and thrombosis of left iliac vein Z79.84 custodial (current) use of oral hypoglycemic drugs Office Visit 05/18/2019 8:00a [facility] Nephrology Jigar King N18.3 Chronic kidney MD [place] disease, stage 3 (moderate) E11.22 Type 2 diabetes mellitus w diabetic chronic kidney disease I82.402 Acute embolism and thombos unsp deep veins of l low extrem N17.9 Acute kidney failure, unspecified Office Visit 04/22/2019 8:00a [facility] Nephrology Jigar King E11.22 Type 2 diabetes MD [place] mellitus w diabetic chronic kidney disease N18.3 Chronic kidney disease, stage 3 (moderate) N17.9 Acute kidney failure, unspecified Office Visit 03/25/2019 8:00a [facility] Nephrology Jigar King N17.9 Acute kidney MD [place] failure, unspecified 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 N18.3 Chronic kidney disease, stage 3 (moderate) Office Visit 03/11/2019 8:00a [facility] Nephrology Jigar King N17.9 Acute kidney MD [place] failure, unspecified 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 N18.3 Chronic kidney disease, stage 3 (moderate) E11.40 Type 2 diabetes mellitus with diabetic neuropathy, unsp N39.0 Urinary tract infection, site not specified Office Visit 03/04/2019 8:00a [facility] Nephrology Jigar King N17.9 Acute kidney MD [...] infection, site not specified Office Visit 02/12/2019 [facility] Sue A40.1 Sepsis due to 9:53a Assoc,pc Eugenia'anton, PA-C streptococcus, Hospitalists group B R65.21 Severe sepsis with septic shock E11.40 Type 2 diabetes mellitus with diabetic neuropathy, unsp E11.22 Type 2 diabetes mellitus w diabetic chronic kidney disease N18.3 Chronic kidney disease, stage 3 (moderate) I25.10 Athscl heart disease of [place] coronary artery w/o ang pctrs Office Visit 02/11/2019 [facility] Ada E11.40 Type 2 diabetes 9:51a keri Maria MD mellitus with Hospitalists diabetic neuropathy, unsp 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 unspecified Hospitalists organism R65.21 Severe sepsis with septic shock N12 Tubulo-interstitial nephritis, not spcf as acute or chronic N13.30 Unspecified hydronephrosis E11.40 Type 2 diabetes mellitus with diabetic neuropathy, unsp Office Visit 02/08/2019 [facility] Milly A41.9 Sepsis, 9:50a keri Maria MD unspecified Hospitalists organism R65.21 Severe sepsis with septic shock N12 Tubulo-interstitial nephritis, not spcf as acute or chronic N13.30 Unspecified hydronephrosis E11.9 Type 2 diabetes mellitus without complications Office Visit 02/07/2019 [facility] Bethany Saravia A41.9 Sepsis, 9:50a keri Maria M.D. unspecified Hospitalists organism R65.21 Severe sepsis with septic shock N39.0 Urinary tract infection, site not specified Assessments Date Code Description Provider 06/17/2019 I12.9 Hypertensive chronic kidney disease Jigar [...] left side Marco Carcamo MD 06/09/2019 Z79.01 custodial (current) use of Sukumar Prakash M.D. anticoagulants 06/09/2019 D84.9 Immunodeficiency, unspecified Marco Carcamo MD 06/09/2019 N17.9 Acute kidney failure, unspecified Marco Carcamo MD 06/09/2019 E11.9 Type 2 diabetes mellitus without Marco Carcamo MD complications 06/02/2019 R06.83 Snoring Joanne Campos DNP, RN, [facility]-BC 06/02/2019 R53.83 Other fatigue Joanne Campos DNP, RN, [facility] 06/01/2019 I12.9 Hypertensive chronic kidney disease [...] Vazquez MD left iliac vein 05/19/2019 Z79.84 buttermaker (current) use of oral Nelson Vazquez MD [...] Sepsis due to streptococcus, group B Sue Eugenia'anton, PA-C 02/12/2019 R65.21 Severe sepsis with septic shock Sue Eugenia'anton, PA-C 02/12/2019 E11.40 Type 2 diabetes mellitus with Sue Sarah, PA-C diabetic neuropathy, unspecified 02/12/2019 E11.22 Type 2 diabetes mellitus with Suemeghan Sarah PA-C diabetic chronic kidney disease 02/12/2019 N18.3 Chronic kidney disease, stage 3 Suesherrill Sarah, PA-C (moderate) 02/12/2019 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 02/09/2019 A41.9 Sepsis, unspecified organism Idania Ignacio.O. 02/09/2019 R65.21 Severe sepsis with septic shock Idania Ignacio.O. 02/09/2019 N12 Tubulo-interstitial nephritis, not Irispantera Hopper D.O. specified as acute or chronic 02/09/2019 N13.30 Unspecified hydronephrosis Idania Ignacio.O. 02/09/2019 E11.40 Type 2 diabetes mellitus [...] Saravia M.D. specified Plan of Treatment Future Appointment(s):07/23/2019 4:00 pm - Marco Carcamo MD at [facility] Internal Medicine - [address]/29/2019 8:00 am - Jigar Canales MD at [facility] Hiwdcoriae84/01/2020 8:15 am - Joanne Campos DNP, RN, BRUSHER MACHINE- at [facility]11/17/2019 8:00 am - Nelson Vazquez MD at [facility]08/11/2019 9:30 am - Vinayak Martinez M.D. at [facility]06/17/2019 - Jigar Canales MDI12.9 Hypertensive chronic kidney disease with stage 1 through stage 4 chronic kidney disease, or unspecified chronic kidney lxkytvdN74.22 Type 2 diabetes mellitus with diabetic chronic kidney dmmupesK96.3 Chronic kidney disease, stage 3 ( moderate)Follow up:1 month f/u with labs Functional Status Description No Information Available Mental Status Description No Information Available Referrals Refer to Reason for Referral Status Appt Date Wojciech Arthur MD sciatica after a fall (November 2018). moderate to Sent / severe narrowing L3-L4, L4-5. chronic compression deformity L1. [address] [facility] [address] [place] [id number] [phone]
--- OUTSIDE RECORDS SUMMARY | 2019-08-04 12:31 | XMS REPORT | Continuity of Care Document ---
:1945 External Reference #:[id number] Author Name Jigar Canales MD (transmitted by agent of provider Brissa Leal) Address [address] [address] Care Team Providers Name Role Phone Chuy Escalera MD - Endocrinology, Care Team Information Egg Worker [phone] Diabetes & Metabolism Prabha Washington MD - Internal Care Team Information Egg Worker Medicine Marco Carcamo MD - Hospitalist Care Team Information Egg Worker [phone] Problems Active Problems Provider Date Type 2 diabetes mellitus Kiran Davis, 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/2007 Martir,GELYP Neuralgia Neuritis & Radiculitis Kiran Davis, 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/2007 Unspecified Martir,FACP Lyme disease Kiran Davis, 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/2007 Martir,FACP Pure hypercholesterolemia Kiran Davis, 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/2007 Martir,FACP 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, 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 Martir,FACP Anticoagulants Longterm (Current) Use Kiran Davis, 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/2007 Encounter Martir,FACP Sleep apnea Kiran Davis, Onset: 06/18/2007 Martir,FACP Peripheral venous insufficiency Kiran Davis, Onset: 06/18/2007 Martir,FACP Diabetic polyneuropathy Kiran Davis, Onset: 10/07/2007 Martir,FACP 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 Kiran Davis, Onset: 06/17/2008 mellitus Martir,FACP Hyperlipidemia Wojciech Jones M.D., [facility], Onset: 04/16/2013 [facility] Benign essential hypertension Wojciech Jones M.D., [facility], Onset: 04/16/2013 [facility] Chronic ischemic heart disease Wojciech Jones M.D., [facility], Onset: 04/16/2013 [facility] Essential hypertension Wojciech Jones M.D., [facility], Onset: 08/01/2015 [facility] 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., [facility]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[facility], 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 [facility] Obesity Wojciech Jones M.D., [facility], Onset: 06/18/2016 [facility] [...] Ferrousul 1 tab by mouth 3 90tabs [facility], 03/25/2019 325(65Fe) times a week MD mg Tablets Sodium Bicarbonate 2 tab by mouth 360tabs [facility] Rodriguez, 03/11/2019 twice times MD 650mg Tablets daily Gabapentin By mouth twice [facility], 03/11/2019 300mg daily MD Capsules Lisinopril 1 by mouth every Wojciech Jones M.D., 11/14/2018 5mg day FACC, FSCAI Tablets Dermacea Gauze Roll Wrap foot bid 4rolls E11.621 Gavi Carreno, 2018 4"X4-1/8Yd M.D. 4"X4-1/8 Misc M86.172 Gauze Sponge Apply bid 60units M86.172 Gavi Carreno M.D. 07/19/2018 4"X4" Pads E11.621 Syringe/Luer use for injection of 12units Bhupinder JimenezYuniel MasonJanee, 04/17/2018 Slip/1ML/27G X 1/2" Vitamin B 12 [...] Regadenoson, 0.1 MG Juan C Grey, DO [facility] 11/27/2018 Injection Technetium TC 99M Juan C Grey, DO [facility] 11/27/2018 Tetrofosmin, Per Unit Dose Up To 40 Millicuries Injection Technetium TC 99M Juan C Grey, DO [facility] 11/27/2018 Tetrofosmin, Per Unit Dose Up To 40 Millicuries Injection Depomedrol 40MG Sofya Borrego M.D. 11/03/2018 Injection Celestone 3 mg and 3mg Mela Catherine-Young, 05/05/2014 Injection M.D. Celestone 3 mg and 3mg Mela Catherine-Young, 04/06/2014 Injection M.D. Immunizations CPT Code Status Date Vaccine Lot # [id number] Given 02/23/2010 Influenza Virus 3Yrs & Over [id number] Given 02/15/2009 Influenza Virus Vaccine, Pandemic Formulation 97246 Given 02/15/2009 Influenza Virus Vaccine, Pandemic Formulation [id number] Given 02/15/2009 Administration Swine Flu Shot 91150 Given 03/18/2007 Influenza Virus 3Yrs & Over 58815 Given 03/18/2007 Influenza Virus 3Yrs & Over [id number] 31560 Given 02/21/2000 Influenza Virus 3Yrs & Over [...] Result H/L Range Note Urinalysis Profile 06/23/2019 [facility] Urine Color Yellow [address] [place] [address] [phone] Urine Appearance Cloudy Urine Specific [place] 1.010 Normal 1.010-1.030 Urine pH 7.0 Normal [...] Absent Urine Transitional Epithelial Present Abnormal Absent CBC Auto 06/23/2019 [facility] White Blood 8.6 10^3/uL Normal 3.5-10.[address] [place] [address] [phone] Red Blood Count 3.84 10^6/uL Low 4.18-5.48 [...] Blood Cells % 0.0 Comp Metabolic 06/23/2019 [facility] Sodium 137 mmol/L Normal 135-[address] [place] [address] [phone] Potassium 4.5 mmol/L Normal 3.5-5.0 Chloride 108 [...] Egfr Non- 33.8 >60 Egfr 40.9 >60 2 Influenza A & B 06/23/2019 [facility] Flu AB Disclaimer (SEE NOTE) [address] [place] [address] [phone] Influenza A Molecular Negative Negative Influenza B Molecular Negative Negative 4 Immunoglobulins 06/15/2019 [facility] Immunoglobulin G 1330 767 - [address] mg/dL 1590 [place], [place] [address] [phone] Immunoglobulin M 121 mg/dL 37 - 286 Immunoglobulin A 145 mg/dL 61 - 356 Urine Culture And 06/15/2019 [facility] Urine SEE RESULT [address] [place] [address] [phone] Urinalysis 06/15/2019 [facility] Urine White 3+(>20/hpf Abnormal Absent Profile [address] Blood Cell ) [place] [address] [phone] Urine Red Blood Cell 1+(3-5/hpf) Abnormal Absent Urine Bacteria 1+ Abnormal Absent Urine Color Yellow Urine Appearance Cloudy Urine Specific [place] 1.011 Normal 1.010-1.030 Urine pH 6.0 Normal 5-9 Urine Urobilinogen Negative Negative Urine Ketones Negative Negative Urine Protein Negative Negative Urine Leukocytes 2+ Abnormal Negative Urine Blood Negative Negative Urine Nitrite Positive Abnormal Negative Urine Bilirubin Negative Negative Urine Glucose Negative Negative Basic Metabolic 06/15/2019 [facility] Sodium 140 mmol/L Normal 135-[address] [place] [address] [phone] Potassium 4.7 mmol/L Normal 3.5-5.0 Chloride 110 mmol/L Normal 101-111 Co2 Carbon Dioxide 23 mmol/L Normal 22-32 Anion Gap 7 mmol/L Normal 2-11 Glucose 99 mg/dL Normal 70-100 Blood Urea Nitrogen 42 mg/dL High 6-24 Creatinine 1.91 mg/dL High 0.67-1.17 BUN/Creatinine Ratio 22.0 High 8-20 Calcium 9.4 mg/dL Normal 8.6-10.3 Egfr Non- 34.8 >60 Egfr 42.1 >60 7 CBC Auto 06/15/2019 [facility] White Blood 8.3 10^3/uL Normal 3.5-10.[address] [place] [address] [phone] Red Blood Count 4.00 10^6/uL Low 4.18-5.48 [...] Red Blood Cells % 0.0 Neph Routine 06/15/2019 [facility] Total Protein Random 29 mg/ dL [address] Urine [place], [place] [id number] [phone] Creatinine Random Urine 59.48 mg/dL Laboratory test 06/15/2019 [facility] Albumin 4.7 g/dL Normal 3.2-5.[address] [place] [address] [phone] Magnesium 2.2 mg/dL Normal 1.9-2.7 Laboratory test 05/30/2019 [facility] Albumin 4.8 g/dL Normal 3.2-5.[address] [place], [place] [address] [phone] Neph Routine 05/30/2019 [facility] Total 34 mg/dL [address] [place] [address] Random Urine [phone] Creatinine Random Urine 64.28 mg/dL CBC Auto 05/30/2019 [facility] White Blood 8.4 10^3/uL Normal 3.5-10.[address] [place] [address] [phone] Red Blood Count 4.23 10^6/uL Normal 4.18-5.48 [...] Blood Cells % 0.0 Basic Metabolic 05/30/2019 [facility] Sodium 141 mmol/L Normal 135-[address] [place] [address] [phone] Chloride 111 mmol/L Normal 101-111 Co2 Carbon Dioxide 26 mmol/L Normal 22-32 Calcium 9.6 mg/dL Normal 8.6-10.3 Potassium 5.4 mmol/L High 3.5-5.0 Anion Gap 4 mmol/L Normal 2-11 Glucose 118 mg/dL High 70-100 Blood Urea Nitrogen 39 mg/dL High 6-24 Creatinine 2.03 mg/dL High 0.67-1.17 BUN/Creatinine Ratio 19.2 Normal 8-20 Egfr Non- 32.4 >60 Egfr 39.3 >60 8 Urinalysis Profile 05/30/2019 [facility] Urine Color Yellow [address] [place] [address] [phone] Urine Appearance Cloudy Urine Specific [place] 1.011 Normal 1.010-1.030 Urine pH 7.0 Normal 5-9 Urine Urobilinogen Negative Negative Urine Ketones Negative Negative Urine Protein Negative Negative Urine Leukocytes 3+ Abnormal Negative Urine Blood Negative Negative * * Abnormal Negative 9 Urine Nitrite Positive Abnormal Negative Urine Bilirubin Negative Negative Urine Glucose Negative Negative Urine White Blood Cell 3+(>20/hpf) Abnormal Absent Urine Red Blood Cell 1+(3-5/hpf) Abnormal Absent Urine Bacteria Absent Absent Urine Squamous Epithelial Cell Present Abnormal Absent Urine Transitional Epithelial Present Abnormal Absent Urine Culture And 05/30/2019 [facility] Urine Culture SEE RESULT [address] [place] [address] [phone] Laboratory test 05/30/2019 [facility] Hemoglobin A1c 7.1 % High 4.0- [address] (Glyco HGB) 5.6 [place] [address] [phone] Urine Culture And 05/16/2019 [facility] Urine Culture SEE RESULT [address] [place] [address] [phone] Urinalysis Profile 05/16/2019 [facility] Urine Color Yellow [address] [place] [address] [phone] Urine Appearance Cloudy Urine Specific [place] 1.010 Normal 1.010-1.030 Urine pH 7.0 Normal [...] Cells Present Abnormal Absent Basic Metabolic 05/16/2019 [facility] Sodium 139 mmol/L Normal 135-145 Panel [address] [place] [address] [phone] Potassium 4.8 mmol/L Normal 3.5-5.0 Chloride 108 mmol/L Normal 101-111 Co2 Carbon Dioxide 24 mmol/L Normal 22-32 Anion Gap 7 mmol/L Normal 2-11 Glucose 131 mg/dL High 70-100 Blood Urea Nitrogen 30 mg/dL High 6-24 Creatinine 1.61 mg/dL High 0.67-1.17 BUN/Creatinine Ratio 18.6 Normal 8-20 Calcium 9.1 mg/dL Normal 8.6-10.3 Egfr Non- 42.4 >60 Egfr 51.3 >60 13 CBC Auto 05/16/2019 [facility] White Blood 7.2 10^3/uL Normal 3.5-10.[address] [place] [address] [phone] Red Blood Count 3.80 10^6/uL Low 4.18-5.48 [...] Red Blood Cells % 0.0 Neph Routine 05/16/2019 [facility] Total Protein Random 29 mg/ dL [address] [place] [address] [phone] Creatinine Random Urine 58.65 mg/dL Neph Routine 04/21/2019 [facility] Total Protein Random 33 mg/ dL [address] [place] [address] [phone] Creatinine Random Urine 50.15 mg/dL 15 CBC Auto 04/21/2019 [facility] White Blood 9.0 10^3/uL Normal 3.5-10.[address] [place] [address] [phone] Red Blood Count 3.49 10^6/uL Low 4.18-5.48 [...] Blood Cells % 0.0 Basic Metabolic 04/21/2019 [facility] Sodium 140 mmol/L Normal 135-145 Panel [address] [place] [address] [phone] Potassium 4.7 mmol/L Normal 3.5-5.0 Chloride 111 mmol/L Normal 101-111 Co2 Carbon Dioxide 22 mmol/L Normal 22-32 Anion Gap 7 mmol/L Normal 2-11 Glucose 104 mg/dL High 70-100 Blood Urea Nitrogen 43 mg/dL High 6-24 Creatinine 1.81 mg/dL High 0.67-1.17 BUN/Creatinine Ratio 23.8 High 8-20 Calcium 9.0 mg/dL Normal 8.6-10.3 Egfr Non- 37.0 >60 Egfr 44.8 >60 16 Urinalysis Profile 04/21/2019 [facility] Urine Color Yellow [address] [place] [address] [phone] Urine Appearance Cloudy Urine Specific [place] 1.010 Normal 1.010-1.030 Urine pH 6.0 Normal [...] Urine Bacteria Absent Absent Laboratory test 04/21/2019 [facility] Albumin 4.5 g/dL Normal 3.2-5.[address] [place] [address] [phone] Iron & Iron 04/21/2019 [facility] Iron 38 g/dL Low 50-212 Binding Capacity [address] [place] [address] [phone] Unsaturated Iron Binding < 394 g/dL Total Iron Binding Capacity 409 g/dL Normal 250-450 Transferrin 292 mg/dL Normal 203-362 % Iron Saturation 9 % Low 15-55 Laboratory test 04/21/2019 [facility] Ferritin 60.5 ng/mL Normal 24-[address] [place] [address] [phone] Urine Culture And 04/21/2019 [facility] Urine SEE RESULT 18 Sensitivities [address] [facility] [place] [address] [phone] Urine Culture And 03/24/2019 [facility] Urine SEE RESULT [address] [place] [address] [phone] Laboratory test 03/24/2019 [facility] Ferritin 80.8 ng/mL Normal 24-[address] [place] [address] [phone] Iron & Iron 03/24/2019 [facility] Iron 57 g/dL Normal 50- [address] [place] [address] [phone] Unsaturated Iron Binding < 342 g/dL Total Iron Binding Capacity 357 g/dL Normal 250-450 Transferrin 255 mg/dL Normal 203-362 % Iron Saturation 16 % Normal 15-55 CBC Auto 03/24/2019 [facility] White Blood 9.3 10^3/uL Normal 3.5-10.[address] [place] [address] [phone] Red Blood Count 3.00 10^6/uL Low 4.18-5.48 [...] Blood Cells % 0.1 Neph Routine 03/24/2019 [facility] Total Protein Random 27 mg/ dL [address] [place] [address] [phone] Creatinine Random Urine 60.28 mg/dL Basic Metabolic 03/24/2019 [facility] Sodium 139 mmol/L Normal 135-[address] [place] [address] [phone] Potassium 5.0 mmol/L Normal 3.5-5.0 Chloride 111 mmol/L Normal 101-111 Co2 Carbon Dioxide 22 mmol/L Normal 22-32 Anion Gap 6 mmol/L Normal 2-11 Glucose 103 mg/dL High 70-100 Blood Urea Nitrogen 29 mg/dL High 6-24 Creatinine 1.88 mg/dL High 0.67-1.17 BUN/Creatinine Ratio 15.4 Normal 8-20 Calcium 8.6 mg/dL Normal 8.6-10.3 Egfr Non- 35.5 >60 Egfr 42.9 >60 20 Urinalysis Profile 03/24/2019 [facility] Urine Color Yellow [address] [place] [address] [phone] Urine Appearance Cloudy Urine Specific [place] 1.010 Normal 1.010-1.030 Urine pH 6.0 Normal [...] Urine Bacteria Absent Absent Laboratory test 03/24/2019 [facility] Albumin 4.0 g/dL Normal 3.2-5.[address] [place] [address] [phone] Urinalysis 03/10/2019 [facility] Urine Color Yellow [address] [place] [address] [phone] Urine Appearance Clear Urine Specific [place] 1.010 Normal 1.010-1.030 Urine pH 6.0 Normal 5-9 Urine Urobilinogen Negative Negative Urine Ketones Negative Negative Urine Protein Negative Negative Urine Leukocytes Trace Abnormal Negative Urine Blood Negative Negative * * Abnormal Negative 23 Urine Nitrite Negative Negative Urine Bilirubin Negative Negative Urine Glucose Negative Negative Urine White Blood Cell 2+(11-20/hpf) Abnormal Absent Urine Red Blood Cell Absent Absent Urine Bacteria Absent Absent CBC Auto 03/10/2019 [facility] White Blood 10.9 10^3/uL High 3.5-10.8 Diff [address] [place] [address] [phone] Red Blood Count 3.10 10^6/uL Low 4.18-5.48 [...] Blood Cells % 0.0 Laboratory test 03/10/2019 [facility] Creatinine Random 47.78 mg /dL 24 finding [address] [facility] [place] [address] [phone] Total Protein Random Urine 48 mg/dL 25 Basic Metabolic 03/10/2019 [facility] Sodium 139 mmol/L Normal 135-145 Panel [address] [place] [address] [phone] Potassium 4.3 mmol/L Normal 3.5-5.0 Chloride 113 mmol/L High 101-111 Co2 Carbon Dioxide 16 mmol/L Low 22-32 Anion Gap 10 mmol/L Normal 2-11 Glucose 128 mg/dL High 70-100 Blood Urea Nitrogen 50 mg/dL High 6-24 Creatinine 2.47 mg/dL High 0.67-1.17 BUN/Creatinine Ratio 20.2 High 8-20 Calcium 8.9 mg/dL Normal 8.6-10.3 Egfr Non- 25.9 >60 Egfr 31.3 >60 26 Laboratory test 03/10/2019 [facility] Albumin 4.2 g/dL Normal 3.2-5.2 [address] [place] [address] [phone] Urine Culture And 03/10/2019 [facility] Urine SEE [address] [place] [address] BELOW [phone] Laboratory test 03/04/2019 [facility] Ferritin 122.7 Normal 24 -336 29, finding [address] [facility] ng/mL 30 [place] [address] [phone] Iron & Iron 03/04/2019 [facility] Iron 56 g/dL Normal 50- 212 Binding Capacity [address] [place] [address] [phone] Unsaturated Iron Binding < 332 g/dL Total Iron Binding Capacity 347 g/dL Normal 250-450 Transferrin 248 mg/dL Normal 203-362 % Iron Saturation 16 % Normal 15-55 Laboratory test 03/04/2019 [facility] Albumin 3.9 g/dL Normal 3.2-5.2 31 finding [address] [place] [address] [phone] Hemoglobin A1c (Glyco HGB) 7.5 % High 4.0-5.6 32 Basic Metabolic 03/04/2019 [facility] Sodium 140 mmol/L Normal 135-[address] [place], [place] [address] [phone] Potassium 5.0 mmol/L Normal 3.5-5.0 Chloride 116 mmol/L High 101-111 Co2 Carbon Dioxide 14 mmol/L Critical low 22-32 33 Anion Gap 10 mmol/L Normal 2-11 Glucose 118 mg/dL High 70-100 Blood Urea Nitrogen 73 mg/dL High 6-24 Creatinine 3.28 mg/dL High 0.67-1.17 BUN/Creatinine Ratio 22.3 High 8-20 Calcium 8.8 mg/dL Normal 8.6-10.3 Egfr Non- 18.6 >60 Egfr 22.6 >60 34 CBC Auto 03/04/2019 [facility] White Blood 10.8 10^3/uL Normal 3.5-10.[address] [place], [place] [address] [phone] Red Blood Count 3.37 10^6/uL Low 4.18-5.48 [...] Cells % 0.0 Urine Culture And 03/04/2019 [facility] Urine Culture SEE RESULT [address] [place] [address] [phone] Urinalysis Profile 03/04/2019 [facility] Urine Color Yellow [address] [place] [address] [phone] Urine Appearance Cloudy Urine Specific [place] 1.011 Normal 1.010-1.030 Urine pH 6.0 Normal 5-9 Urine Urobilinogen Negative Negative Urine Ketones Negative Negative Urine Protein Negative Negative Urine Leukocytes 3+ Abnormal Negative Urine Blood 2+ Abnormal Negative Urine Nitrite Negative Negative Urine Bilirubin Negative Negative Urine Glucose Negative Negative Urine White Blood Cell 3+(>20/hpf) Abnormal Absent Urine Red Blood Cell 3+(>10/hpf) Abnormal Absent Urine Bacteria Absent Absent Neph Routine 03/04/2019 [facility] Total Protein Random 69 mg/ dL [address] [place] [address] [phone] Creatinine Random Urine 72.89 mg/dL 37 Comp Metabolic 03/04/2019 [facility] Sodium 142 mmol/L Normal 135-[address] [place] [address] [phone] Potassium 4.6 mmol/L Normal 3.5-5.0 Co2 Carbon [...] Egfr Non- 19.1 >60 Egfr 23.1 >60 38 Chloride 120 mmol/L High 101-111 Anion Gap 7 mmol/L Normal 2-11 CBC Auto 03/04/2019 [facility] White Blood 9.5 10^3/uL Normal 3.5-10.[address] [place] [address] [phone] Red Blood Count 3.07 10^6/uL Low 4.18-5.48 [...] Blood Cells % 0.0 Urinalysis Profile 03/04/2019 [facility] Urine Color Yellow [address] [place] [address] [phone] Urine Appearance Clear Urine Specific [place] 1.010 Normal 1.010-1.030 Urine pH 7.0 Normal 5-9 Urine Urobilinogen Negative Negative Urine Ketones Negative Negative Urine Protein Negative Negative Urine Leukocytes Trace Abnormal Negative Urine Blood Negative Negative Urine Nitrite Negative Negative Urine Bilirubin Negative Negative Urine Glucose Negative Negative Urine White Blood Cell 1+(6-10/hpf) Abnormal Absent Urine Red Blood Cell Absent Absent Urine Bacteria Absent Absent Basic Metabolic 03/04/2019 [facility] Sodium 142 mmol/L Normal 135-145 Panel [address] [place] [address] [phone] Potassium 4.5 mmol/L Normal 3.5-5.0 Glucose 125 mg/dL High 70-100 Blood Urea Nitrogen 72 mg/dL High 6-24 Creatinine 3.24 mg/dL High 0.67-1.17 BUN/Creatinine Ratio 22.2 High 8-20 Calcium 8.5 mg/dL Low 8.6-10.3 Egfr Non- 18.9 >60 Egfr 22.9 >60 39 Chloride 118 mmol/L High 101-111 Co2 Carbon Dioxide 14 mmol/L Critical low 22-32 40 Anion Gap 10 mmol/L Normal 2-11 Xray 12/25/2018 [facility] SP Lumbarsacral 4+ VWS <pending> [address] [place] [address] [phone] MRI Lumbar Spine W/O <pending> 1 *Ascorbic acid is present which may interfere with detection of blood. 2 Because ethnic data is not always [...] 5 Kidney failure <15 (or dialysis) 3 Suboptimal collection technique may reduce sensitivity of test. Refer to the [facility] Test Catalog for collection information: [email or web address] As with all diagnostic procedures, the laboratory results obtained should be used in conjunction with other clinical information available to the physician, including confirmation by another method, as applicable. 4 Poultry [employer] Manager: [id number] 5 Test Performed by: [facility] [address] [place] [address] Director Telemetry: Prosper Davila M.D. Ph.D.; CLIA# [id number] 6 SEE RESULT BELOW Name: DARIO MANCINI : [address]: Marco Carcamo MD Acct: [id number] Unit: [id number] AGE: 73 Location: LAB Re06/15/19 SEX: M Status: REG REF SPEC: [id number] JAROD: 06/15/19-[address]: Jigar Canales MD REQ: [id number] RECD: 06/15/19 STATUS: COMP _ SOURCE: URINE SPDESC: ORDERED: Urine Culture Procedure Result Reported Site Urine Culture Final 06/18/19- 832 ML Organism 1 ENTEROCOCCUS FAECALIS Proctor Count >100,000 (Many) CFU/ML 1. ENTEROCOCCUS FAECALIS M.I.C. RX --------- ------ Ampicillin <=2 S Penicillin 4 S Ciprofloxacin <=0.5 S Gentamicin High Level S Levofloxacin 1 S Nitrofurantoin <=16 S * Quinupristin/Dalfopristin 8 R * Streptomycin High Level S Tetracycline >=16 R Tigecycline <=0.12 S Vancomycin 1 S Imipenem-Deduced S * Ampicillin/Sulbactam-Deduced S * These antibiotics are not available in the [facility] Formulary Contact the Microbiology Department for any additional antibiotic reporting. * ML - Main Lab . END OF REPORT DEPARTMENT OF PATHOLOGY, [address] [place] [address] Jorge Luis Davis M.D. Director [facility] # [id number] 7 Because ethnic data is not always [...] 5 Kidney failure <15 (or dialysis) 8 Because ethnic data is not always [...] 5 Kidney failure <15 (or dialysis) 9 *Ascorbic acid is present which may interfere with detection of blood. 10 SEE RESULT BELOW Name: DARIO MANCINI : [address]: Jigar Canales MD Acct: [id number] Unit: [id number] AGE: 73 Location: LAB Re05/30/19 SEX: M Status: REG REF SPEC: [id number] JAROD: 05/30/19-[address]: Jigar Canales MD REQ: [id number] RECD: 05/30/19-1329 STATUS: COMP [facility] DR: Marco Vazquez MD _ SOURCE: URINE SPDESC: ORDERED: Urine Culture Procedure Result Reported Site Urine Culture Final 06/01/19840 ML Organism 1 ENTEROCOCCUS FAECALIS Proctor Count 75-100,000 (Many) CFU/ML 1. ENTEROCOCCUS FAECALIS M.I.C. RX --------- ------ Ampicillin <=2 S Penicillin 4 S Ciprofloxacin <=0.5 S Gentamicin High Level S Levofloxacin 1 S Nitrofurantoin <=16 S * Quinupristin/Dalfopristin 8 R * Streptomycin High Level S Tetracycline >=16 R Tigecycline <=0.12 S Vancomycin 1 S Imipenem-Deduced S * Ampicillin/Sulbactam-Deduced S CONTINUED ON NEXT PAGE DEPARTMENT OF PATHOLOGY, [address] [place] [address] Jorge Luis Davis M.D. Director [facility] # [id number] Specimen: [id number] Collected: 05/30/19-131 Received: 05/30/19-132 (Continued) Procedure Result Reported Site Urine Culture Final (continued) * These antibiotics are not available in the [facility] Formulary Contact the Microbiology Department for any additional antibiotic reporting. * ML - Main Lab . END OF REPORT DEPARTMENT OF PATHOLOGY, [address] [place] [address] Jorge Luis Davis M.D. Director [facility] # [id number] 11 Therapeutic target for the treatment of diabetes mellitus patients is <7% HBA1C, and in selective patients <6.0%. Please refer to [place] [employer] diabetic care guidelines for further information. 12 SEE RESULT BELOW Name: MANCINIALANNADARIO : [address]: Jigar Canales MD Acct: [id number] Unit: [id number] AGE: 73 Location: LAB Re05/16/19 SEX: M Status: REG REF SPEC: [id number] JAROD: 05/16/19-[address]: Jigar Canales MD REQ: [id number] RECD: 05/16/19 STATUS: COMP _ SOURCE: URINE SPDESC: ORDERED: Urine Culture Procedure Result Reported Site Urine Culture Final 05/18/19741 ML Organism 1 ENTEROCOCCUS FAECALIS Proctor Count >100,000 (Many) CFU/ML Organism 2 NORMAL CADENCE Proctor Count 10-25,000 (Moderate) CFU/ML 1. ENTEROCOCCUS FAECALIS M.I.C. RX --------- ------ Ampicillin <=2 S Penicillin 4 S Ciprofloxacin <=0.5 S Gentamicin High Level S Levofloxacin 1 S Nitrofurantoin <=16 S * Quinupristin/Dalfopristin 8 R * Streptomycin High Level S Tetracycline >=16 R Tigecycline <=0.12 S Vancomycin 1 S Imipenem-Deduced S * Ampicillin/Sulbactam-Deduced S CONTINUED ON NEXT PAGE DEPARTMENT OF PATHOLOGY, [address] [place] [address] Jorge Luis Davis M.D. Director [facility] # [id number] Specimen: [id number] Collected: 05/16/19 Received: 05/16/19 (Continued) Procedure Result Reported Site Urine Culture Final (continued) * These antibiotics are not available in the [facility] Formulary Contact the Microbiology Department for any additional antibiotic reporting. * ML - [facility] . END OF REPORT DEPARTMENT OF PATHOLOGY, [address] [place] [address] Jorge Luis Davis M.D. Director [facility] # [id number] 13 Because ethnic data is not always readily [...] 15-29 5 Kidney failure <15 (or dialysis) 14 CATH SPECIMEN 15 CATH SPECIMEN 16 Because ethnic data is not always [...] 5 Kidney failure <15 (or dialysis) 17 *Ascorbic acid is present which may interfere with detection of blood. 18 SEE RESULT BELOW Name: DARIO MANCINI : [address]: Jigar Canales MD Acct: [id number] Unit: [id number] AGE: 73 Location: LAB Re04/21/19 SEX: M Status: REG REF SPEC: [id number] JAROD: 04/21/[address]: Jigar Canales MD REQ: [id number] RECD: 04/21/19 STATUS: COMP _ SOURCE: URINE SPDESC: ORDERED: Urine Culture Procedure Result Reported Site Urine Culture Final 04/22/19- 1440 ML No growth of clinically significant organisms * ML - Main Lab . END OF REPORT DEPARTMENT OF PATHOLOGY, [address] [place] [address] Jorge Luis Davis M.D. Director [facility] # [id number] 19 SEE RESULT BELOW Name: DARIO MANCINI : [address]: Jigar Canales MD Acct: [id number] Unit: [id number] AGE: 73 Location: LAB Re03/24/19 SEX: M Status: REG REF SPEC: [id number] JAROD: 03/24/19-[address]: Jigar Canales MD REQ: [id number] RECD: 03/24/19 STATUS: COMP _ SOURCE: URINE [facility]: ORDERED: Urine Culture Procedure Result Reported Site Urine Culture Final 03/25/19- 1459 ML No Growth (<1,000 CFU/mL) * ML - Main Lab . END OF REPORT DEPARTMENT OF PATHOLOGY, [address] [place] [address] Jorge Luis Davis M.D. Director [facility] # [id number] 20 Because ethnic data is not always [...] 5 Kidney failure <15 (or dialysis) 21 *Ascorbic acid is present which may interfere with detection of blood. 22 Next week. 23 *Ascorbic acid is present which may interfere with detection of blood. 24 Next week. 25 Next week. 26 Because ethnic data is not always readily [...] 15-29 5 Kidney failure <15 (or dialysis) 27 Next week. 28 SEE RESULT BELOW Name: DARIO MANCINI : [address]: Jigar Canales MD Acct: [id number] Unit: [id number] AGE: 73 Location: LAB Re03/10/19 SEX: M Status: REG REF SPEC: [id number] JAROD: 11/ SUBM DR: Jigar Canales MD REQ: [id number] RECD: 03/10/19 STATUS: COMP _ SOURCE: URINE SPDESC: ORDERED: Urine Culture Procedure Result Reported Site Urine Culture Final 03/11/19- 1443 ML No Growth (<1,000 CFU/mL) * ML - Main Lab . END OF REPORT DEPARTMENT OF PATHOLOGY, [address] [place] [address] Jorge Luis Davis M.D. Director [facility] # [id number] 29 Today 30 Today 31 Today 32 Therapeutic target for the treatment of diabetes mellitus patients is <7% HBA1C, and in selective patients <6.0%. Please refer to [place] [employer] diabetic care guidelines for further information. 33 Critical Result CO2:14 Called to REMBERTO Bello at: 10:23:35 by:[id number] Read back by:REMBERTO Bello 34 Because ethnic data is not always [...] 5 Kidney failure <15 (or dialysis) 35 SEE RESULT BELOW Name: DARIO MANCINI : [address]: Jigar Canales MD Acct: [id number] Unit: [id number] AGE: 73 Location: LAB Re03/04/19 SEX: M Status: REG REF SPEC: [id number] JAROD: 03/04/19 [facility] DR: Jigar Canales MD REQ: [id number] RECD: 03/04/19 STATUS: [facility] DOWE[facility] DR: Prabha Washington MD PC _ SOURCE: URINE SPDESC: ORDERED: Urine Culture Procedure Result Reported Site Urine Culture Final 03/05/19- 1548 ML Organism 1 NANCY ALBICANS Proctor Count 25-50,000 (Moderate) CFU/ML * ML - Main Lab . END OF REPORT DEPARTMENT OF PATHOLOGY, [address] [place] [address] Jorge Luis Davis M.D. Director [facility] # [id number] 36 Today 37 Today 38 Because ethnic data is not always [...] 5 Kidney failure <15 (or dialysis) 39 Because ethnic data is not always [...] 5 Kidney failure <15 (or dialysis) 40 Critical Result CO2:14 Called to [id number] at: 19:35:48 by:[id number] Read back by:[id number] Procedures Date Code Description Status 02/09/2019 16284 ECHO Transthorasic Realtime 2D W Doppler & Color Flow Completed Hosp 05/15/2010 901508354 Diabetic Foot Exam Completed 04/28/2010 606115022 Diabetic Foot Exam Completed 02/28/2010 997687192 Diabetic Retinal Eye Exam Completed 04/01/2008 256528572 Diabetic Retinal Eye Exam Completed 02/26/2008 509240764 Diabetic Foot Exam Completed 02/05/2008 912208554 Diabetic Foot Exam Completed 02/25/2007 963744567 Diabetic Retinal Eye Exam Completed Medical Devices Description No Information Available Encounters Type Date Location Provider Dx Diagnosis Office Visit 06/17/2019 [facility] Jigar AYuniel I12.9 Hypertensive chronic 8:00a MD [place] kidney disease w stg 1-4/unsp chr kdny E11.22 Type 2 diabetes mellitus w diabetic chronic kidney disease N18.3 Chronic kidney disease, stage 3 (moderate) Office Visit 06/09/2019 11:20a [facility] Internal Marco Carcamo MD M54.32 Sciatica , left Medicine - Suite side R D84.9 Immunodeficiency, unspecified N17.9 Acute kidney failure, unspecified E11.9 Type 2 diabetes mellitus without complications Office Visit 06/02/2019 8:30a [facility] Joanne Campos, R06.83 [facility] ABELARDO, RN, DELIVERY LEAD-BC R53.83 Other fatigue Office Visit 06/01/2019 8:00a [facility] Mohammad A. I12.9 Hypertensive MD [place] chronic kidney disease w stg 1-4/unsp chr kdny E87.5 Hyperkalemia N17.9 Acute kidney failure, unspecified E11.22 Type 2 diabetes mellitus w diabetic chronic kidney disease N18.3 Chronic kidney disease, stage 3 (moderate) Office Visit 05/19/2019 [facility] Nelson Coch, E11.65 Type 2 diabetes 8:00a Endocrinology of MD mellitus with [facility] hyperglycemia E11.21 Type 2 diabetes mellitus with diabetic nephropathy I82.422 Acute embolism and thrombosis of left iliac vein Z79.84 prison (current) use of oral hypoglycemic drugs Office Visit 05/18/2019 8:00a [facility] Jigar King N18.3 Chronic kidney MD Parker disease, stage 3 (moderate) E11.22 Type 2 diabetes mellitus w diabetic chronic kidney disease I82.402 Acute embolism and thombos unsp deep veins of l low extrem N17.9 Acute kidney failure, unspecified Office Visit 04/22/2019 8:00a [facility] Jigar King E11.22 Type 2 diabetes MD Parker mellitus w diabetic chronic kidney disease N18.3 Chronic kidney disease, stage 3 (moderate) N17.9 Acute kidney failure, unspecified Office Visit 03/25/2019 8:00a [facility] Jigar King N17.9 Acute kidney MD Praker failure, unspecified 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 N18.3 Chronic kidney disease, stage 3 (moderate) Office Visit 03/11/2019 8:00a [facility] Nephneda King N17.9 Acute kidney MD Parker failure, unspecified 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 N18.3 Chronic kidney disease, stage 3 (moderate) E11.40 Type 2 diabetes mellitus with diabetic neuropathy, unsp N39.0 Urinary tract infection, site not specified Office Visit 03/04/2019 8:00a [facility] Nephneda King N17.9 Acute kidney MD Parker [...] infection, site not specified Office Visit 02/12/2019 [facility] Sue A40.1 Sepsis due to 9:53a Assoc,pc Tyrel, KATIE-C streptococcus, Hospitalists group B R65.21 Severe sepsis with septic shock E11.40 Type 2 diabetes mellitus with diabetic neuropathy, unsp E11.22 Type 2 diabetes mellitus w diabetic chronic kidney disease N18.3 Chronic kidney disease, stage 3 (moderate) I25.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 mellitus with Hospitalists diabetic neuropathy, unsp E11.22 Type 2 diabetes mellitus w diabetic chronic kidney disease N12 Tubulo-interstitial nephritis, not spcf as acute or chronic N18.3 Chronic kidney disease, stage 3 (moderate) Office [facility], Assoc,keri Hopper D.O. unspecified Hospitalists organism R65.21 Severe sepsis with septic shock N12 Tubulo-interstitial nephritis, not spcf as acute or chronic N13.30 Unspecified hydronephrosis E11.40 Type 2 diabetes mellitus with diabetic neuropathy, unsp Office Visit 02/08/2019 [facility] Milly A41.9 Sepsis, 9:50a Assoc,keri Michaels MD unspecified Hospitalists organism R65.21 Severe sepsis with septic shock N12 Tubulo-interstitial nephritis, not spcf as acute or chronic N13.30 Unspecified hydronephrosis E11.9 Type 2 diabetes mellitus without complications Office Visit 02/07/2019 [facility] Bethany Saravia, A41.9 Sepsis, 9:50a keri [...] stage 3 Jigar Canales MD (moderate) 06/09/2019 M54.32 Sciatica, left side Marco Carcamo MD 06/09/2019 D84.9 Immunodeficiency, unspecified Marco Carcamo MD 06/09/2019 N17.9 Acute kidney failure, unspecified Marco Carcamo MD 06/09/2019 E11.9 Type 2 diabetes mellitus without Marco Carcamo MD complications 06/02/2019 R06.83 Snoring Joanne Campos DNP, RN, [facility] 06/02/2019 R53.83 Other fatigue Joanne Campos DNP, RN, [facility] 06/01/2019 I12.9 Hypertensive chronic kidney disease Jigar [...] Vazquez MD left iliac vein 05/19/2019 Z79.84 prison (current) use of oral Nelson [...] E11.40 Type 2 diabetes mellitus with Sue aSrah PA-C diabetic neuropathy, unspecified 02/12/2019 E11.22 Type 2 diabetes mellitus with Suemeghan Sarah PA-C diabetic chronic kidney disease 02/12/2019 N18.3 Chronic kidney disease, stage 3 Suemeghan Sarah PA-C (moderate) 02/12/2019 I25.10 Atherosclerotic heart disease of Sue Sarah PA-C chit[place] coronary artery without angina pectoris 02/11/2019 E11.40 Type 2 diabetes mellitus with Ada Santos MD diabetic neuropathy, unspecified 02/11/2019 E11.22 Type 2 diabetes mellitus with Ada Santos MD diabetic chronic kidney disease 02/11/2019 I25.10 Atherosclerotic heart disease of Ada Santos MD chitina coronary artery without angina pectoris 02/10/2019 E11.40 [...] Hopper D.O. 02/09/2019 N12 Tubulo-interstitial nephritis, not Idania Ignacio.O. specified as acute or chronic 02/09/2019 [...] 4:00 pm - Marco Carcamo MD at [facility] - [address]/29/2019 8:00 am - Jigar Canales MD at [facility] Ikzebmbwpe43/01/2020 8:15 am - Joanne Campos DNP, RN, DELIVERY LEAD-BC at [facility]11/17/2019 8:00 am - Nelson Vazquez MD at [facility]08/11/2019 9:30 am - Vinayak Martinez M.D. at [facility]06/17/2019 - Jigar Canales MDI12.9 Hypertensive chronic kidney disease with stage 1 through stage 4 chronic kidney disease, or unspecified chronic kidney uqlspvuR12.22 Type 2 diabetes mellitus with diabetic chronic kidney mcxouusJ15.3 Chronic kidney disease, stage 3 ( moderate)Follow up:1 month f/u with labs Functional Status Description No Information Available Mental Status Description No Information Available Referrals Refer to Dr Reason for Referral Status Appt Date Wojciech Arthur MD sciatica after a fall (November 2018). moderate to Sent severe narrowing L3-L4, L4-5. chronic compression deformity L1. [address] [facility] [address] [place] [address] [phone]
--- NOTE | 2019-08-04 12:54 | ED ---
HPI Febrile Illness - HPI Summary HPI Summary: The patient is a 74-year-old male presenting to [facility] Emergency Department with a chief complaint of fever today. He reports that he has been suffering from a very mild cough but went to work today and felt well. However, he then developed a fever with max temperature of 102.6F. He has no pain or any other complications. He denies any shortness of breath, chest pain, abdominal pain, nausea, vomiting, or diarrhea. He states he feels similar to when he had sepsis in 01/2019 which required admission. Patient self caths at home; history of prostate cancer with prostatectomy, chronic renal disease, acute kidney failure , urinary diversion surgery. 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 Nonsmoker. Admits to occasional alcohol use. No substance use. Medications reviewed. Allergies noted. - History of Current Complaint Time Seen by Provider: 08/04/19 12:28 Hx Obtained From: Patient Onset/Duration: Started Hours Ago, Still Present Timing: Constant Temperature: 102.6 F Initial Severity: Mild Current Severity: Mild Pain Intensity: 0 Pain Scale Used: 0-10 Numeric Aggravating Factors: Nothing Alleviating Factors: Nothing Associated Signs and Symptoms: Cough - mild, Other: - Negative: shortness of breath, abdominal pain, nausea, vomiting, diarrhea - Additional Pertinent History Primary Care Physician: [id number] - Allergy/Home Medications Allergies/Adverse Reactions: Allergies Allergy/AdvReac Type Severity Reaction Status Date / Time Adhesive Tape [Silk Tape] Allergy Unknown Verified 06/23/19 09:12 Reaction Details latex Allergy Swelling Verified 06/23/19 09:12 Home Medications: Home Medications Budesonide/Formote 160/4.5(NF) [Symbicort 160/4.5 (NF)] 1 - 2 puff INH BID 06/24 [History Confirmed 08/04/19] Montelukast Sodium TAB* [Singulair 10 MG TAB*] 10 mg PO DAILY 06/24/17 [History Confirmed 08/04/19] Aspirin EC TAB* [Ecotrin EC Low Dose 81 MG*] 162 mg PO DAILY 04/15/18 [History Confirmed 08/04/19] Famotidine TAB* [Pepcid 20 MG TAB*] 20 mg PO BID 04/15/18 [History Confirmed ] Nitroglycerin TAB 0.4 MG* 0.4 mg SL Q5M PRN 04/15/18 [History Confirmed 08/04/19 ] Cholecalciferol (Vitamin D3) [Vitamin D3] 1,000 unit PO DAILY 02/06/19 [History Confirmed 08/04/19] Gabapentin CAP(*) [Neurontin 300 CAP(*)] 300 mg PO BID 02/06/19 [History Confirmed 08/04/19] Lactobacillus Acidophilus [Probiotic Acidophilus] 1 - 2 tab PO DAILY 02/06/19 [ History Confirmed 08/04/19] Lisinopril TAB* [Prinivil TAB 5 MG*] 5 mg PO QAM 02/06/19 [History Confirmed ] Melatonin 10 mg PO BEDTIME 02/06/19 [History Confirmed 08/04/19] Metoprolol Succinate XL TAB* [Toprol XL TAB*] 25 mg PO DAILY 02/06/19 [History Confirmed 08/04/19] Multivitamins/Minerals TAB* [Theragran/minerals TAB*] 1 tab PO DAILY 02/06/19 [ History Confirmed 08/04/19] Pravastatin (NF) [Pravachol (NF)] 40 mg PO QPM 02/06/19 [History Confirmed 08/03] Albuterol Sulfate [Proair Digihaler] 90 mcg INH Q6H PRN 05/13/19 [History Confirmed 08/04/19] Cranberry Conc/Ascorbic Acid [Cranberry Concentrate] 1 cap PO DAILY 05/13/19 [ History Confirmed 08/04/19] Magnesium Glycinate [Mag Glycinate] 100 mg PO BID 05/13/19 [History Confirmed ] Sodium Bicarbonate (ANTACID)* 1,300 mg PO BID 05/13/19 [History Confirmed ] Ferrous Sulfate TAB* 325 mg PO MOWEFR 06/23/19 [History Confirmed 08/04/19] Linagliptin (NF) [Tradjenta (NF)] 5 mg PO DAILY 06/23/19 [History Confirmed ] Methylcobalamine (NF) [B-12] 1,000 mcg SL DAILY 06/23/19 [History Confirmed ] Pterostilbene 2 tab PO DAILY 06/23/19 [History Confirmed 08/04/19] Apixaban* [Eliquis*] 5 mg PO BID 08/04/19 [History Confirmed 08/04/19] glipiZIDE TAB.XL* [Glucotrol XL*] 5 mg PO QAM 08/04/19 [History Confirmed ] PMH/Surg Hx/FS Hx/Imm Hx Endocrine/Hematology History: Reports: Hx Anticoagulant Therapy, Hx Diabetes Denies: Hx Sickle Cell Disease, Hx Thyroid Disease, Hx Anemia, Hx Unexplained Bleeding Cardiovascular History: Reports: Hx Cardiomegaly, Hx Coronary Artery Disease, Hx Deep Vein Thrombosis, Hx Hypercholesterolemia, Hx Myocardial Infarction, Hx Peripheral Vascular Disease, Other Cardiovascular Problems/Disorders - cardiomegaly , Denies: Hx Aneurysm, Hx Angina, Hx Angioplasty, Hx Auto Implanted Cardiovert Defib, Hx Cardiac Arrest, Hx Congenital Heart Disease, Hx Congestive Heart Failure, Hx Embolism, Hx Hypotension, Hx Hypertension, Hx Pacemaker/ICD, Hx Rheumatic Fever, Hx Syncope, Hx Valvular Heart Disease Respiratory History: Reports: Hx Asthma, Hx Chronic Bronchitis, Hx Pneumonia, Hx Seasonal Allergies, Hx Sleep Apnea, Other Respiratory Problems/Disorders - FREQUENT PNEUMONIA Denies: Hx Chronic Obstructive Pulmonary Disease (COPD), Hx Pulmonary Embolism GI History: Reports: Other GI Disorders - 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 Denies: Hx Cirrhosis, Hx Crohn's Disease, Hx Diverticulosis, Hx Gall Bladder Disease, Hx Gastroesophageal Reflux Disease, Hx Gastrointestinal Bleed, Hx Hiatal Hernia, Hx Irritable Bowel, Hx Jaundice, Hx Obstructive Bowel, Hx Ileostomy, Hx Pyloric Stenosis, Hx Ulcer History: Reports: Hx Renal Disease - CHRONIC RENAL DISEASE, Other Problems /Disorders - Continent urinary diversion at [facility] Denies: Hx Acute Renal Failure, Hx Benign Prostatic Hyperplasia, Hx Chronic Renal Failure, Hx Dialysis, Hx Kidney Infection, Hx Kidney Stones Musculoskeletal History: Reports: Hx Arthritis, Hx Back Problems, Hx Bursitis - KNEE, Other Musculoskeletal History - osteomyleitis Denies: Hx Gout, Hx Osteoporosis, Hx Scoliosis Sensory History: Reports: Hx Contacts or Glasses Denies: Hx Legally Blind, Hx Deafness, Hx Hearing Aid Opthamlomology History: Reports: Hx Contacts or Glasses Denies: Hx Legally Blind Neurological History: Reports: Hx Nerve Disease - diabetic neuropathy to LE, Other Neuro Impairments/Disorders - neuropathy to bilat feet Denies: Hx Seizures, Hx Spinal Cord Injury, Hx Transient Ischemic Attacks ( TIA) Psychiatric History: Denies: Hx Panic Disorder - Cancer History Cancer Type, Location and Year: prostate cancer Hx Chemotherapy: No Hx Radiation Therapy: Yes - Proton Radiation Hx Palliative Cancer Treatment: No - Surgical History Surgical History: Yes Surgery Procedure, Year, and Place: appendix, tonsils, prostatectomy, urinary incontinence diversion 2002, rt foot /Left foot SURGERIES NOW TOTALLY 18, hernia repair,cardiac stent 04/08/13. urostomy Hx Anesthesia Reactions: No - Immunization History Date of Influenza Vaccine: 11/2016 Infectious Disease History: Denies: Hx Clostridium Difficile, Hx Hepatitis, Hx Human Immunodeficiency Virus (HIV), Hx of Known/Suspected MRSA, Hx Shingles, Hx Tuberculosis, Hx Known/ Suspected VRE, Hx Known/Suspected VRSA, History Other Infectious Disease, Traveled Outside the [place] in Last 30 Days - Family History Known Family History: Positive: Blood Disorder - FMHx of blood clots , Other - neg: anaesthesia reaction - Social History Alcohol Use: Occasionally Alcohol Amount: 1x week Hx Substance Use: No Substance Use Type: Reports: None Hx Tobacco Use: No Smoking Status (MU): Never Smoked Tobacco Have You Smoked in the Last Year: No Review of Systems Positive: Fever - 102.6F Negative: Chest Pain Positive: Cough - mild. Negative: Shortness Of Breath Negative: Abdominal Pain, Vomiting, Diarrhea, Nausea All Other Systems Reviewed And Are Negative: Yes Physical Exam - Summary Physical Exam Summary: VITAL SIGNS: Reviewed. GENERAL: Patient is a well-developed and nourished male who is lying comfortable in the stretcher. Patient is not in any acute respiratory distress. HEAD AND FACE: No signs of trauma. No ecchymosis, hematomas or skull depressions. No sinus tenderness. EYES: PERRL, EOMI x 2, No injected conjunctiva, no nystagmus. EARS: Hearing grossly intact. Ear canals and tympanic membranes are within normal limits. MOUTH: Oropharynx within normal limits. NECK: Supple, trachea is midline, no adenopathy, no JVD, no carotid bruit, no c- spine tenderness, neck with full ROM. CHEST: Symmetric, no tenderness at palpation. LUNGS: Clear to auscultation bilaterally. No wheezing or crackles. CVS: Regular rate and rhythm, S1 and S2 present, no murmurs or gallops appreciated. ABDOMEN: Soft, non-tender. No signs of distention. No rebound, no guarding, and no masses palpated. Bowel sounds are normal. Ostomy in the right lower quadrant , Erythema around the ostomy but no tenderness EXTREMITIES: FROM in all major joints, no edema, no cyanosis or clubbing. NEURO: Alert and oriented x 3. No acute neurological deficits. Speech is normal and follows commands. SKIN: Dry and warm. Triage Information Reviewed: Yes Vital Signs Reviewed: Yes Procedures - Sedation Patient Received Moderate/Deep Sedation with Procedure: No Diagnostics - Laboratory Result Diagrams: 08/04/19 13:00 08/04/19 13:00 Lab Statement: Any lab studies that have been ordered have been reviewed, and results considered in the medical decision making process. - Radiology Chest X-Ray Radiology Interpretation Completed By: Radiologist Summary of Radiographic Findings: Impression: No evidence for acute disease. Dr. Mcwilliams has reviewed this report. Re-Evaluation - Re-Evaluation First Eval Re-Evaluation Time: 16:05 Comment: Patient agreeable with admission plan. Course/Dx - Course Assessment/Plan: The patient is a 74-year-old male presenting to [facility] Emergency Department with a chief complaint of fever today. He reports that he has been suffering from a very mild cough but went to work today and felt well. However, he then developed a fever with max temperature of 102.6F. He has no pain or any other complications. He denies any shortness of breath, chest pain, abdominal pain, nausea, vomiting, or diarrhea. He states he feels similar to when he had sepsis in 01/2019 which required admission. Patient self caths at home; history of prostate cancer with prostatectomy, chronic renal disease, acute kidney failure, urinary diversion surgery. 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 Nonsmoker. Admits to occasional alcohol use. No substance use. Medications reviewed. Allergies noted. Physical exam reveals ostomy in the right lower quadrant with surrounding erythema but no tenderness with palpation. In the ED course the patient was placed on a phototypesetting equipment monitor, IV access was obtained. No 30 cc/kg was used since the patient is a PUI. Past medical records reviewed. At 12:46 no VS available. Blood work w/o significant abnormality except for WBCs 14, hemoglobin 12.3, hematocrit 36, neutrophils 11.9, lymphocytes 0.8, monocytes 1.2 , INR 1.2, fibrinogen 430.6, sodium 134, carbon dioxide 21 BUN 39, creatinine 1.99, glucose 133, CPK 235, troponin 0.03, CRP 22.62. Urinalysis is positive for UTI with 1+ blood, nitrates, 3+ leukocyte esterase, 3+ WBCs, 2+ RBCs, and 1 + bacteria. Patient given Rocephin in the ED for fever. Patient also given fluids. CXR impression: No evidence for acute disease. Likely patient source of infection is the UTI and cellulitis of the skin of the lower abdomen. I discussed my physical exam and test results with Dr. Saravia from the hospitalist services, and she agrees to admit the patient to her services. Patient understands and agrees. - Diagnoses Provider Diagnoses: UTI (urinary tract infection), Cellulitis, abdominal wall - Provider Notifications Discussed Care Of Patient With: Bethany Saravia - hospitalist Time Discussed With Above Provider: 16:00 Instructed by Provider To: Other - I discussed the patient's case with Dr. Saravia , who accepts the patient for admission. - Critical Care Time Critical Care Statement: Critical care time is provided exclusive of any time spent performing procedures. Discharge ED - Sign-Out/Discharge Documenting (check all that apply): Patient Departure - Patient accepted for admission by Dr. Saravia. - Discharge Plan Condition: Stable Disposition: ADMITTED TO [facility] - Billing Disposition and Condition Condition: STABLE Disposition: Admitted to [facility] - Attestation Statements Document Initiated by Cara: Yes Documenting Scribe: Hollie Burk Provider For Whom Cara is Documenting (Include Credential): Carlos Mcwilliams MD Scribe Attestation: Hollie Gipson, scribed for Carlos Mcwilliams MD on 08/05/19 at 0742. Scribe Documentation Reviewed: Yes Provider Attestation: The documentation as recorded by the Hollie rawls accurately reflects the service I personally performed and the decisions made by me, Carlos Mcwilliams MD Status of Scribe Document: Viewed
[2019-08-04 13:34] LABS: ABS Basophils 0.1 10^3/ul (0-0.2); ABS Lymphocytes 0.8 10^3/ul (1.0-4.8); ABS Monocytes 1.2 10^3/ul (0-0.8); ABS Neutrophils 11.9 10^3/ul (1.5-7.7); Eosinophil % 0.1 %; Hematocrit 36 % (42-52); Hemoglobin 12.3 g/dL (14.0-18.0); Lymphocyte % 5.8 %; Mean Corpuscular HGB Conc 34 g/dL (31-36); Mean Corpuscular Hemoglobin 29 pg (27-31); Mean Corpuscular Volume 86 fL (80-94); Mean Platelet Volume 7.5 fL (7.4-10.4); Platelet Count 257 10^3/uL (150-450); Red Blood Count 4.17 10^6 /uL (4.18-5.48); Red Cell Distribution Width 15 % (10-15)
[2019-08-04 13:43] LABS: Activated Partial Thrombo Time 29.4 seconds (26.0-38.0); Fibrinogen 430.6 mg/dL (110.8-404.3); INR 1.2 (0.82-1.09)
[2019-08-04 13:52] LABS: ALT 19 U/L (7-52); AST 22 U/L (13-39); Albumin 4.5 g/dL (3.2-5.2); Albumin/Globulin Ratio 1.3 (1-3); Alkaline Phosphatase 82 U/L (34-104); Anion Gap 8 mmol/L (2-11); BUN/Creatinine Ratio 19.6 (8-20); Blood Urea Nitrogen 39 mg/dL (6-24); C Reactive Protein 22.62 mg/L (<8.01); CO2 Carbon Dioxide 21 mmol/L (22-32); Calcium 9.3 mg/dL (8.6-10.3); Chloride 105 mmol/L (101-111); Creatine Kinase 235 U/L (10-223); EGFR African American 40.1 (>60); EGFR Non-African American 33.1 (>60); Globulin 3.4 g/dL (2-4); Glucose 133 mg/dL (70-100); Potassium 4.8 mmol/L (3.5-5.0); Sodium 134 mmol/L (135-145); Total Protein 7.9 g/dL (6.4-8.9)
[2019-08-04 13:54] LABS: Troponin I 0.03 ng/mL (<0.03)
[2019-08-04] MEDS ORDERED: cefTRIAXone(*) 1 GM in NS 0.9% 50 ML* 50 ML IVPB ONE (14:07)
[2019-08-04 14:48] LABS: Erythrocyte Sed Rate 42 mm/Hr (0-19)
[2019-08-04 14:50] LABS: Urine Appearance Cloudy; Urine Bilirubin Negative (Negative); Urine Blood 1+ (Negative); Urine Color Yellow; Urine Glucose Negative (Negative); Urine Ketones Negative (Negative); Urine Nitrite Positive (Negative); Urine Protein Negative (Negative); Urine Specific Gravity 1.011 (1.010-1.030); Urine Urobilinogen Negative (Negative)
[2019-08-04 14:58] LABS: Urine Bacteria 1+ (Absent); Urine Red Blood Cell 2+(6-10/hpf) (Absent); Urine White Blood Cell 3+(>20/hpf) (Absent)
[2019-08-04] MEDS ORDERED: NS 0.9% 1000 ML** 1,000 ML IV ONE (15:37)
[2019-08-04 17:03] LABS: Influenza A Molecular Negative (Negative); Influenza B Molecular Negative (Negative)
[2019-08-04] MEDS ORDERED: Vancomycin(*) 1,000 MG in NS 0.9% 250 ML* 250 ML IVPB ONE (17:15)
[2019-08-04] MEDS ORDERED: Vancomycin per Pharmacy* NOTE FOLLOW UP SCH (18:00)
[2019-08-04] MEDS ORDERED: Dextrose 50% Syringe 50 ML* 25 GM/50 ML SYRINGE IV PUSH PRN (18:37)
[2019-08-04] MEDS ORDERED: Vancomycin(*) 1,000 MG in NS 0.9% 250 ML* 250 ML IV ONE (19:30)
[2019-08-04] MEDS: Mometasone/Formoter 200/5 MDI INH SCH (19:45)
--- NOTE | 2019-08-04 19:45 | HP ---
CC: Dr. Washington* HISTORY AND PHYSICAL: DATE OF ADMISSION: 08/04/19 PROVIDER: Cee Whitney NP ATTENDING PHYSICIAN: Dr. Bethany Saravia* (dictated by Cee Whitney NP). PRIMARY CARE PROVIDER: Dr. Washington. CHIEF COMPLAINT: 1. Fever. 2. Cough. HISTORY OF PRESENT ILLNESS: Mr. Carlton is a 74-year-old gentleman with a past medical history significant for coronary artery disease, status post stenting; type 2 diabetes with diabetic neuropathy; history of prostate cancer, status post resection and radiation, which caused urinary incontinence requiring revision and diversion to a false bladder with a urostomy, who self- catheterizes 6 times a day for the past 16 years. The patient has had multiple admissions in the past for cellulitis of the legs and multiple foot surgeries. He also has a history of recent DVT approximately 2 to 3 months ago for which he had a DVT in his left leg and is now on Eliquis. The patient also is noted to have frequent UTIs and chronic kidney disease. The patient reports that he felt in his usual state of health yesterday without any symptoms. He reports that he has had a cough, a dry nonproductive cough and developed a fever today. He took his temperature at home, it was 102.6. Due to his cough and fever, the patient presented to the emergency room. Of note, the patient does report that he noted having foul smelling urine that started approximately a week ago. While in the emergency room, he had routine lab work drawn. He was found to have an elevated white count of 14,000 and a mildly elevated troponin of 0.03. Due to these findings, Hospital Medicine was asked to see and evaluate him for admission. Of note, the patient also was noted to have cellulitis to his abdomen and reports bloating of his abdomen "since he started drinking more water." PAST MEDICAL HISTORY: Significant for: 1. Coronary artery disease, status post stenting. 2. History of asthma. 3. Type 2 diabetes. 4. Diabetic neuropathy. 5. Chronic kidney disease, stage 3. 6. Dyslipidemia. 7. History of prostate cancer, status post resection with radiation. 8. Urostomy placement in 2002, self-catheterizes x16 years 6 times a day. 9. L3 to L5 disk herniation. 10. History of DVTs. PAST SURGICAL HISTORY: 1. Prostatectomy. 2. Urostomy with diversion of false bladder. 3. Appendectomy. 4. Tonsillectomy. HOME MEDICATIONS: Include: 1. Albuterol 1 puff q.6 hours as needed for shortness of breath. 2. Apixaban 5 mg p.o. b.i.d. 3. Cranberry 1 tablet p.o. daily. 4. Lactobacillus 1 to 2 tablets p.o. daily. 5. Lisinopril 5 mg p.o. daily. 6. Magnesium glycinate 100 mg p.o. b.i.d. 7. Melatonin 10 mg at bedtime. 8. Nitro 0.4 mg sublingual q.5 minutes as needed for chest pain. 9. Pterostilbene 2 tablets p.o. daily. 10. Aspirin 162 mg p.o. daily. 11. Symbicort 1 to 2 puffs twice daily. 12. Vitamin D3 1000 units p.o. daily. 13. Famotidine 20 mg p.o. b.i.d. 14. Ferrous sulfate 325 mg Saturday, Saturday, Saturday. 15. Gabapentin 300 mg b.i.d. 16. Glipizide 5 mg p.o. q.a.m. 17. Tradjenta 5 mg p.o. daily. 18. B12 1000 mcg p.o. daily. 19. Metoprolol 25 mg p.o. daily. 20. Singulair 10 mg p.o. daily. 22. Multivitamin 1 tablet p.o. daily. 23. Pravastatin 40 mg p.o. daily. 24. Sodium bicarbonate 1300 mg p.o. daily. ALLERGIES: To ADHESIVE TAPE, LATEX. FAMILY HISTORY: Father from an [place] in his 70s, father was prediabetic. No reported history of cancer. 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 He denies any tobacco use for over 40 years. He drinks rarely. No illicit drug use. He lives with his . He is a full code. Surrogate decision maker in the event he is unable to make his own decisions is his . REVIEW OF SYSTEMS: He does report fever. He denies any chest pain. He does report some mild shortness of breath and nonproductive cough. Denies any hemoptysis. Denies any pain with urination or self-catheterization. Denies any gross hematuria. He denies any abdominal pain but does report bloating. He does report some mild redness to his abdomen x1 week. He denies any rashes or open sores. He denies any psychosis or anxiety. PHYSICAL EXAMINATION GENERAL: At this time, Mr. Carlotn is a 74-year-old male. He is alert and oriented, resting on the stretcher in the emergency room. He is well developed , well nourished, age stated male in no acute distress. VITAL SIGNS: Blood pressure 127/54, heart rate 85, respirations are 16, O2 saturation 99%, temperature is 100.1. HEENT: Head is atraumatic, normocephalic. Eyes: EOMs are intact. Sclerae anicteric and not pale. Oral mucosa is moist. NECK: Supple. LUNGS: Clear to auscultation bilaterally. No wheezes, rales, or rhonchi. CARDIAC: S1, S2. Regular rate and rhythm. No murmurs, rubs, or gallops. ABDOMEN: Rounded, soft. He does have erythema noted to the midline of his abdomen that extends to either side. It is warm to touch. He denies any pain. Bowel sounds are active x4. EXTREMITIES: He is able to move all 4 extremities. There is no clubbing or cyanosis. He does have venous insufficiency, brown discoloration to bilateral lower extremities. There are no open sores. Pedal pulses are +1 bilaterally. NEUROLOGIC: He is awake and alert and oriented x3. Speech is clear. Thought process is intact. There are no gross focal deficits. SKIN: He does have erythema noted to the center of his abdomen. It is warm to touch. There are no open sores. DIAGNOSTIC STUDIES/LAB DATA: WBCs are 14.0, RBCs 4.17, hemoglobin 12.3, hematocrit is 36, platelet count is 257, absolute neutrophils are 11.9, lymphs were 0.8, and absolute monos were 1.2. ESR was 42. INR 1.20, aPTT was 29.45, fibrinogen was 430.6. Sodium was 134, potassium 4.8, chloride 105, carbon dioxide was 21, anion gap was 8, BUN was 39, creatinine 1.99, glucose was 133, lactic acid was 1.0, calcium 9.3. Total bilirubin 0.30, ASTs were 22, ALTs were 19, alkaline phosphatase was 82. Total CK was 235, troponin was 0.03. C- reactive protein was 22.62. BNP was 38. Urine pH was 6.0, specific gravity 1.011, urine protein and ketones were negative, urine blood was 1+, nitrites were positive, bilirubin and urobilinogen were negative, leukocyte esterase was 3+, wbc's were 3+, rbc's 2+, bacteria was 1+, glucose was negative. Flu A and B were negative. He had a chest x-ray, radiologist's impression: No active cardiopulmonary disease. ASSESSMENT AND PLAN: Mr. Carlton is a 74-year-old male with a history of prostate cancer, status post resection, multiple surgeries, and history of urinary incontinence, which required the creation of false bladder. He self- catheterizes through a urostomy 6 times a day. He comes in with fever, tachycardia, and leukocytosis. He will be admitted for sepsis likely secondary to urinary tract infection. 1. Sepsis secondary to urinary tract infection/cellulitis. The patient is septic as evidenced by elevated white count of 14.0, fever of 101.1, tachycardia of 104 with suspected source of urinary tract infection/abdominal cellulitis. He will be placed inpatient on [facility]. He will be placed on ceftriaxone and azithromycin. The patient does have a urine culture from . At that time, he grew Klebsiella which was susceptible to ceftriaxone. I am adding vancomycin due to the cellulitis on his abdomen. The patient does have cellulitis on the abdomen. He does report bloating to his abdomen. I am going to get a CT of the abdomen and pelvis to rule out any abscess without contrast. 2. Cough and fever. The patient does have a cough and fever. He has a chest x - ray that shows no active cardiopulmonary disease or pneumonia. He will be ruled out for COVID, that test is currently pending. His flu A and B were negative. 3. Elevated Troponin. noted to have a troponin of 0.03, repeat is pending. I suspect this is related to demand ischemia in the setting of sepsis for cellulitis and UTI. We will continue to trend troponins. Should his troponin have a significant elevation, i would recommend consult to cardiology. At this time the patient has no chest pain, EKG ordered. 3. History of hypertension. The patient takes lisinopril for hypertension. I am going to hold that at this time. We will monitor his blood pressure in the setting of sepsis. He will continue on metoprolol. 4. Type 2 diabetes. I will continue him on his home medications and place him on fingersticks a.c. and h.s. 5. Dyslipidemia. We will continue on pravastatin. 6. History of extensive DVT to the left leg. He will continue on apixaban 5 mg p.o. b.i.d. 7. Asthma. He will continue on Symbicort and albuterol. He can have albuterol nebulizer as needed for pain. 8. Chronic pain. He will continue on his gabapentin. 9. Chronic kidney disease. His creatinine is at baseline. At this time, we will continue to monitor his creatinine. I will repeat a BMP tomorrow. We will avoid nephrotoxic medications and pharmacy will dose his vancomycin. 10. FEN: He can have heart-healthy, caffeine okay diet. 11. Code status: He is a full code. 12. DVT prophylaxis: He is on Eliquis. TIME SPENT: Time spent on this admission was 60 minutes, greater than half that time was spent at the bedside reviewing events leading thus far to his hospitalization, performing physical exam, and reviewing my plan of care. I have discussed this with my attending, Dr. Bethany Saravia; she is in agreement with my plan. CEE WHITNEY, MARY JO [id number]/[facility] #: [id number] SAMANTHA
[2019-08-04] MEDS: NS 0.9% 1000 ML** 1,000 ML IV SCH (21:44)
[2019-08-04] MEDS: Famotidine TAB* 20 MG PO SCH (21:45)
[2019-08-04] MEDS: Sodium Bicarbonate (ANTACID)* 650 MG TAB PO SCH (21:45)
[2019-08-04] MEDS: Apixaban* 5 MG TAB PO SCH (21:45)
[2019-08-04] MEDS: Atorvastatin* 10 MG TAB PO SCH (21:46)
[2019-08-04] MEDS: Gabapentin CAP(*) 300 MG PO SCH (21:46)
[2019-08-05] MEDS: Mometasone/Formoter 200/5 MDI INH SCH ×2 (08:23→20:02)
[2019-08-05 08:34] LABS: ABS Eosinophils 0.1 10^3/ul (0-0.6); ABS Monocytes 1.4 10^3/ul (0-0.8); ABS Neutrophils 6.6 10^3/ul (1.5-7.7); Eosinophil % 1.1 %; Hematocrit 33 % (42-52); Hemoglobin 11.2 g/dL (14.0-18.0); Lymphocyte % 11.1 %; Mean Corpuscular HGB Conc 34 g/dL (31-36); Mean Corpuscular Hemoglobin 29 pg (27-31); Mean Corpuscular Volume 87 fL (80-94); Mean Platelet Volume 7.3 fL (7.4-10.4); Platelet Count 202 10^3/uL (150-450); Red Blood Count 3.84 10^6 /uL (4.18-5.48); Red Cell Distribution Width 15 % (10-15); White Blood Count 9.1 10^3/uL (3.5-10.8)
[2019-08-05] MEDS: Metoprolol Succinate XL TAB* 25 MG PO SCH (08:35)
[2019-08-05] MEDS: Famotidine TAB* 20 MG PO SCH ×2 (08:36→19:24)
[2019-08-05] MEDS: Aspirin EC TAB* 81 MG TAB.EC PO SCH (08:36)
[2019-08-05] MEDS: Montelukast Sodium TAB* 10 MG PO SCH (08:36)
[2019-08-05] MEDS: Apixaban* 5 MG TAB PO SCH ×2 (08:36→19:24)
[2019-08-05] MEDS: Gabapentin CAP(*) 300 MG PO SCH ×2 (08:36→19:24)
[2019-08-05] MEDS: Cyanocobalamin TAB* 500 MCG PO SCH (08:36)
[2019-08-05] MEDS: Insulin LISPRO* 1 UNITS UNIT SUBCUT SCH ×3 (08:37→16:31)
[2019-08-05] MEDS: Sodium Bicarbonate (ANTACID)* 650 MG TAB PO SCH ×2 (08:37→19:24)
[2019-08-05] MEDS: Multivitamins/Minerals TAB PO SCH (08:37)
[2019-08-05] MEDS: Cholecalciferol TAB* 1000 UNITS PO SCH (08:38)
[2019-08-05 08:50] LABS: BUN/Creatinine Ratio 16.5 (8-20); Calcium 8.1 mg/dL (8.6-10.3); EGFR African American 44.4 (>60); EGFR Non-African American 36.7 (>60); Potassium 4.5 mmol/L (3.5-5.0)
[2019-08-05] MEDS ORDERED: glipiZIDE TAB.XL* 5 MG PO SCH (09:00)
[2019-08-05] MEDS ORDERED: Linagliptin (NF) 5 MG TAB PO SCH (09:00)
[2019-08-05] MEDS: NS 0.9% 1000 ML** 1,000 ML IV SCH (12:22)
--- NOTE | 2019-08-05 14:22 | PN ---
Subjective Date of Service: 08/05/19 Interval History: 74 year old diabetic man with diverting urostomy, hx of umbilical/incisional hernia repair 20 years ago. Now with fever and mid lower abdominal redness and warmth for 2-3 days. Today feeling better and warmth is improved. Objective Active Medications: Acetaminophen (Tylenol Tab*) 650 mg PO Q4H PRN PRN Reason: MILD PAIN or TEMP > 100.4 Apixaban (Eliquis*) 5 mg PO BID [facility] Last Admin: 08/05/19 08:36 Dose: 5 mg Aspirin (Aspirin Ec Tab*) 162 mg PO DAILY [facility] Last Admin: 08/05/19 08:36 Dose: 162 mg Atorvastatin Calcium (Lipitor*) 10 mg PO BEDTIME [facility]; Protocol Last Admin: 08/04/19 21:46 Dose: 10 mg Cholecalciferol (Vitamin D Tab*) 1,000 units PO DAILY [facility] Last Admin: 08/05/19 08:38 Dose: 1,000 units Cyanocobalamin (Vitamin B12 Tab*) 1,000 mcg PO DAILY [facility] Last Admin: 08/05/19 08:36 Dose: 1,000 mcg Dextrose (D50w Syringe 50 Ml*) 12.5 gm IV PUSH .FOR FS < 60 - SS PRN PRN Reason: FS < 60 Famotidine (Pepcid Tab*) 20 mg PO BID [facility] Last Admin: 08/05/19 08:36 Dose: 20 mg Ferrous Sulfate (Ferrous Sulfate Tab*) 325 mg PO MOWEFR [facility] Gabapentin (Neurontin Cap(*)) 300 mg PO BID [facility] Last Admin: 08/05/19 08:36 Dose: 300 mg Sodium Chloride (Ns 0.9% 1000 Ml) 1,000 mls @ 100 mls/hr IV PER RATE [facility] Last Admin: 08/05/19 12:22 Dose: 100 mls/hr Ceftriaxone Sodium 1 gm/ (Sodium Chloride) 50 mls @ 100 mls/hr IVPB Q24H [facility] Vancomycin HCl 1,500 mg/ (Sodium Chloride) 250 mls @ 166.667 mls/hr IVPB Q24H [facility] Insulin Human Lispro (Humalog*) 0 units SUBCUT AC [facility]; Protocol Last Admin: 08/05/19 13:07 Dose: 2 units Metoprolol Succinate (Toprol Xl Tab*) 25 mg PO DAILY [facility] Last Admin: 08/05/19 08:35 Dose: 25 mg Mometasone Furoate/Formoterol Fumar (Dulera 200/5 Mdi*) 2 puff INH BID [facility]; Protocol Last Admin: 08/05/19 08:23 Dose: 2 puff Montelukast Sodium (Singulair Tab*) 10 mg PO DAILY [facility] Last Admin: 08/05/19 08:36 Dose: 10 mg Multivitamins/Minerals (Theragran/Minerals Tab*) 1 tab PO DAILY [facility] Last Admin: 08/05/19 08:37 Dose: 1 tab Pharmacy Consult (Vancomycin Per Pharmacy*) 1 note FOLLOW UP .VANC PER PHARMACY [facility]; Protocol Pharmacy Profile Note (Vancomycin Trough Check) 1 note FOLLOW UP 1530 ONE Stop: 08/07/19 15:31 Sodium Bicarbonate (Sodium Bicarbonate (Antacid)*) 1,300 mg PO BID [facility] Last Admin: 08/05/19 08:37 Dose: 1,300 mg Vital Signs - 8 hr 08/05/19 08/05/19 08/05/19 07:15 07:50 08:24 Temperature 37.7 C Pulse Rate 72 75 Respiratory 16 16 16 Rate Blood Pressure 124/62 (mmHg) O2 Sat by Pulse 99 99 98 Oximetry 08/05/19 08/05/19 08:36 11:06 Temperature Pulse Rate Respiratory 16 16 Rate Blood Pressure (mmHg) O2 Sat by Pulse Oximetry Oxygen Devices in Use Now: None Eyes: No Scleral Icterus Ears/Nose/Mouth/Throat: NL Teeth, Lips, Gums Respiratory: Symmetrical Chest Expansion and Respiratory Effort, Clear to Auscultation Cardiovascular: NL Sounds; No Murmurs; No JVD, RRR Abdominal: NL Sounds; No Tenderness; No Distention, - - midline lower abdominal incision intact, surrounding erythema and warmth, no fluctuance; Right sided urostomy Extremities: No Edema Neurological: Alert and Oriented x 3 Result Diagrams: 08/05/19 07:58 08/05/19 07:58 Microbiology and Other Data: Microbiology 08/04/19 13:00 Aerobic Blood Culture - Preliminary Blood Venous No Growth Day 1 Anaerobic Blood Culture - Preliminary No Growth Day 1 08/04/19 13:00 Aerobic Blood Culture - Preliminary Blood Venous No Growth Day 1 Anaerobic Blood Culture - Preliminary No Growth Day 1 Assess/Plan/Problems-Billing Assessment: - Patient Problems (1) Abdominal wall cellulitis Current Visit: Yes Status: Acute Code(s): L03.311 - CELLULITIS OF ABDOMINAL WALL SNOMED Code(s): 27000051 Comment: continue vancomycin goal tr 10-15, DC ceftriaxone, follow up with surgeon as outpatient regarding mesh (2) DVT (deep venous thrombosis) Current Visit: Yes Status: Acute Code(s): I82.409 - ACUTE EMBOLISM AND THOMBOS UNSP DEEP VN UNSP LOWER EXTREMITY SNOMED Code(s): 305166644 Comment: continue eliquis (3) CKD (chronic kidney disease) stage 3, GFR 30-59 ml/min Current Visit: No Status: Chronic Code(s): N18.3 - CHRONIC KIDNEY DISEASE, STAGE 3 (MODERATE) SNOMED Code(s): 140156993 Comment: Pt with likely stage III CKD secondary to diabetic nephropathy and possibly hydronephrosis. Creatinine was up on admission likely related to his septic shock and hydroneprhosis. Creatinine continues to trend down. Continue to monitor renal function. (4) Diabetes mellitus type 2 Current Visit: No Status: Chronic Code(s): E11.9 - TYPE 2 DIABETES MELLITUS WITHOUT COMPLICATIONS SNOMED Code(s): 58724245 Comment: Holding glipizide, BG under 160, continue ISS (5) Diabetic neuropathy Current Visit: No Status: Chronic Code(s): E11.40 - TYPE 2 DIABETES MELLITUS WITH DIABETIC NEUROPATHY, UNSP SNOMED Code(s): 551043591 Comment: Continue gabapentin at home dose. (6) Full code status Current Visit: No Status: Acute Code(s): Z78.9 - OTHER SPECIFIED HEALTH STATUS SNOMED Code(s): 333942021
[2019-08-05] MEDS: Vancomycin(*) 1,500 MG in NS 0.9% 250 ML* 250 ML IVPB SCH (16:10)
[2019-08-05] MEDS: Ferrous Sulfate TAB* 325 MG PO SCH (16:11)
[2019-08-05] MEDS ORDERED: cefTRIAXone(*) 1 GM in NS 0.9% 50 ML* 50 ML IVPB SCH (18:00)
[2019-08-05] MEDS: Atorvastatin* 10 MG TAB PO SCH (19:24)
[2019-08-06] MEDS: NS 0.9% 1000 ML** 1,000 ML IV SCH ×2 (03:20→20:11)
[2019-08-06] MEDS: Famotidine TAB* 20 MG PO SCH ×2 (07:47→21:36)
[2019-08-06] MEDS: Metoprolol Succinate XL TAB* 25 MG PO SCH (07:47)
[2019-08-06] MEDS: Gabapentin CAP(*) 300 MG PO SCH ×2 (07:47→21:37)
[2019-08-06] MEDS: Sodium Bicarbonate (ANTACID)* 650 MG TAB PO SCH ×2 (07:47→21:38)
[2019-08-06] MEDS: Aspirin EC TAB* 81 MG TAB.EC PO SCH (07:47)
[2019-08-06] MEDS: Montelukast Sodium TAB* 10 MG PO SCH (07:47)
[2019-08-06] MEDS: Cholecalciferol TAB* 1000 UNITS PO SCH (07:48)
[2019-08-06] MEDS: Multivitamins/Minerals TAB PO SCH (07:48)
[2019-08-06] MEDS: Apixaban* 5 MG TAB PO SCH ×2 (07:48→21:37)
[2019-08-06] MEDS: Insulin LISPRO* 1 UNITS UNIT SUBCUT SCH ×3 (07:52→16:37)
[2019-08-06] MEDS: Mometasone/Formoter 200/5 MDI INH SCH ×2 (08:21→19:36)
[2019-08-06] MEDS: Cyanocobalamin TAB* 500 MCG PO SCH (09:31)
--- NOTE | 2019-08-06 16:14 | PN ---
Subjective Date of Service: 08/06/19 Interval History: 74 year old man with ileal conduit, hx UTI, admitted with fever and redness/ warmth abdominal wall. Centered around healed surgical incision. No fever, rash, or diarrhea. Moving bowels normally for him. Redness more splotchy, areas of clearing. Objective Active Medications: Acetaminophen (Tylenol Tab*) 650 mg PO Q4H PRN PRN Reason: MILD PAIN or TEMP > 100.4 Apixaban (Eliquis*) 5 mg PO BID [facility] Last Admin: 08/06/19 07:48 Dose: 5 mg Aspirin (Aspirin Ec Tab*) 162 mg PO DAILY [facility] Last Admin: 08/06/19 07:47 Dose: 162 mg Atorvastatin Calcium (Lipitor*) 10 mg PO BEDTIME [facility]; Protocol Last Admin: 08/05/19 19:24 Dose: 10 mg Cholecalciferol (Vitamin D Tab*) 1,000 units PO DAILY [facility] Last Admin: 08/06/19 07:48 Dose: 1,000 units Cyanocobalamin (Vitamin B12 Tab*) 1,000 mcg PO DAILY [facility] Last Admin: 08/06/19 09:31 Dose: 1,000 mcg Dextrose (D50w Syringe 50 Ml*) 12.5 gm IV PUSH .FOR FS < 60 - SS PRN PRN Reason: FS < 60 Famotidine (Pepcid Tab*) 20 mg PO BID [facility] Last Admin: 08/06/19 07:47 Dose: 20 mg Ferrous Sulfate (Ferrous Sulfate Tab*) 325 mg PO MOWEFR [facility] Last Admin: 08/05/19 16:11 Dose: 325 mg Gabapentin (Neurontin Cap(*)) 300 mg PO BID [facility] Last Admin: 08/06/19 07:47 Dose: 300 mg Sodium Chloride (Ns 0.9% 1000 Ml) 1,000 mls @ 100 mls/hr IV PER RATE [facility] Last Admin: 08/06/19 03:20 Dose: 100 mls/hr Vancomycin HCl 1,500 mg/ (Sodium Chloride) 250 mls @ 166.667 mls/hr IVPB Q24H [facility] Last Admin: 08/05/19 16:10 Dose: 166.667 mls/hr Insulin Human Lispro (Humalog*) 0 units SUBCUT AC [facility]; Protocol Last Admin: 08/06/19 12:45 Dose: 2 units Metoprolol Succinate (Toprol Xl Tab*) 25 mg PO DAILY [facility] Last Admin: 08/06/19 07:47 Dose: 25 mg Mometasone Furoate/Formoterol Fumar (Dulera 200/5 Mdi*) 2 puff INH BID [facility]; Protocol Last Admin: 08/06/19 08:21 Dose: 2 puff Montelukast Sodium (Singulair Tab*) 10 mg PO DAILY [facility] Last Admin: 08/06/19 07:47 Dose: 10 mg Multivitamins/Minerals (Theragran/Minerals Tab*) 1 tab PO DAILY [facility] Last Admin: 08/06/19 07:48 Dose: 1 tab Pharmacy Consult (Vancomycin Per Pharmacy*) 1 note FOLLOW UP .VANC PER PHARMACY [facility]; Protocol Pharmacy Profile Note (Vancomycin Trough Check) 1 note FOLLOW UP 1530 ONE Stop: 08/07/19 15:31 Sodium Bicarbonate (Sodium Bicarbonate (Antacid)*) 1,300 mg PO BID [facility] Last Admin: 08/06/19 07:47 Dose: 1,300 mg Vital Signs - 8 hr 08/06/19 08/06/19 08/06/19 08:54 10:39 11:15 Temperature 36.3 C Pulse Rate 74 89 Respiratory 15 16 16 Rate Blood Pressure 134/66 (mmHg) O2 Sat by Pulse 95 98 Oximetry 08/06/19 14:14 Temperature 36.3 C Pulse Rate 71 Respiratory 17 Rate Blood Pressure 127/68 (mmHg) O2 Sat by Pulse 100 Oximetry Oxygen Devices in Use Now: None Result Diagrams: 08/05/19 07:58 08/05/19 07:58 Microbiology and Other Data: Microbiology 08/04/19 13:00 Aerobic Blood Culture - Preliminary Blood Venous No Growth Day 1 Anaerobic Blood Culture - Preliminary No Growth Day 1 08/04/19 13:00 Aerobic Blood Culture - Preliminary Blood Venous No Growth Day 1 Anaerobic Blood Culture - Preliminary No Growth Day 1 Assess/Plan/Problems-Billing Assessment: - Patient Problems (1) Abdominal wall cellulitis Current Visit: Yes Status: Acute Code(s): L03.311 - CELLULITIS OF ABDOMINAL WALL SNOMED Code(s): 52148825 Comment: continue vancomycin goal tr 10-15, follow up with a surgeon as outpatient, mesh in hernia repair per patient, I don't see on CT. (2) DVT (deep venous thrombosis) Current Visit: Yes Status: Chronic Code(s): I82.409 - ACUTE EMBOLISM AND THOMBOS UNSP DEEP VN UNSP LOWER EXTREMITY SNOMED Code(s): 490247739 Comment: continue eliquis (3) CKD (chronic kidney disease) stage 3, GFR 30-59 ml/min Current Visit: No Status: Chronic Code(s): N18.3 - CHRONIC KIDNEY DISEASE, STAGE 3 (MODERATE) SNOMED Code(s): 445662963 Comment: Stage 3 CKD, stable (4) Diabetes mellitus type 2 Current Visit: No Status: Chronic Code(s): E11.9 - TYPE 2 DIABETES MELLITUS WITHOUT COMPLICATIONS SNOMED Code(s): 81739671 Comment: Holding glipizide, BG under 160, continue ISS (5) Diabetic neuropathy Current Visit: No Status: Chronic Code(s): E11.40 - TYPE 2 DIABETES MELLITUS WITH DIABETIC NEUROPATHY, UNSP SNOMED Code(s): 497066308 Comment: Continue gabapentin at home dose. (6) Full code status Current Visit: No Status: Acute Code(s): Z78.9 - OTHER SPECIFIED HEALTH STATUS SNOMED Code(s): 662360390
[2019-08-06] MEDS: Vancomycin(*) 1,500 MG in NS 0.9% 250 ML* 250 ML IVPB SCH (16:25)
[2019-08-06] MEDS: Atorvastatin* 10 MG TAB PO SCH (21:38)
[2019-08-07] MEDS: NS 0.9% 1000 ML** 1,000 ML IV SCH (05:46)
[2019-08-07] MEDS: Acetaminophen TAB* 325 MG PO PRN (05:56)
[2019-08-07 06:12] LABS: Hematocrit 34 % (42-52); Hemoglobin 11.4 g/dL (14.0-18.0); Mean Corpuscular HGB Conc 34 g/dL (31-36); Mean Corpuscular Hemoglobin 30 pg (27-31); Mean Corpuscular Volume 87 fL (80-94); Mean Platelet Volume 7.4 fL (7.4-10.4); Platelet Count 203 10^3/uL (150-450); Red Blood Count 3.86 10^6 /uL (4.18-5.48); Red Cell Distribution Width 15 % (10-15); White Blood Count 7.4 10^3/uL (3.5-10.8)
[2019-08-07 06:28] LABS: Albumin 3.8 g/dL (3.2-5.2); Albumin/Globulin Ratio 1.3 (1-3); BUN/Creatinine Ratio 16.4 (8-20); Calcium 8.9 mg/dL (8.6-10.3); EGFR African American 51.9 (>60); EGFR Non-African American 42.9 (>60); Globulin 2.9 g/dL (2-4); Potassium 4.5 mmol/L (3.5-5.0); Total Bilirubin 0.3 mg/dL (0.2-1.0); Total Protein 6.7 g/dL (6.4-8.9)
[2019-08-07] MEDS: Mometasone/Formoter 200/5 MDI INH SCH (07:19)
[2019-08-07] MEDS: Cyanocobalamin TAB* 500 MCG PO SCH (08:39)
[2019-08-07] MEDS: Sodium Bicarbonate (ANTACID)* 650 MG TAB PO SCH ×2 (08:40→21:32)
[2019-08-07] MEDS: Metoprolol Succinate XL TAB* 25 MG PO SCH (08:40)
[2019-08-07] MEDS: Gabapentin CAP(*) 300 MG PO SCH ×2 (08:40→21:30)
[2019-08-07] MEDS: Multivitamins/Minerals TAB PO SCH (08:40)
[2019-08-07] MEDS: Montelukast Sodium TAB* 10 MG PO SCH (08:40)
[2019-08-07] MEDS: Aspirin EC TAB* 81 MG TAB.EC PO SCH (08:40)
[2019-08-07] MEDS: Apixaban* 5 MG TAB PO SCH ×2 (08:40→21:31)
[2019-08-07] MEDS: Cholecalciferol TAB* 1000 UNITS PO SCH (08:40)
[2019-08-07] MEDS: Insulin LISPRO* 1 UNITS UNIT SUBCUT SCH ×3 (08:41→17:55)
[2019-08-07] MEDS: Famotidine TAB* 20 MG PO SCH ×2 (10:46→21:31)
--- NOTE | 2019-08-07 14:31 | PN ---
Subjective Date of Service: 08/07/19 Interval History: Patient reports he feels well today reporting "so much better than admission". he denies any fever or chills. reports the redness on his abdomen is better but still "very present". Denies any abdominal pain. Objective Active Medications: Acetaminophen (Tylenol Tab*) 650 mg PO Q4H PRN PRN Reason: MILD PAIN or TEMP > 100.4 Last Admin: 08/07/19 05:56 Dose: 650 mg Apixaban (Eliquis*) 5 mg PO BID [facility] Last Admin: 08/07/19 08:40 Dose: 5 mg Aspirin (Aspirin Ec Tab*) 162 mg PO DAILY [facility] Last Admin: 08/07/19 08:40 Dose: 162 mg Atorvastatin Calcium (Lipitor*) 10 mg PO BEDTIME [facility]; Protocol Last Admin: 08/06/19 21:38 Dose: 10 mg Cholecalciferol (Vitamin D Tab*) 1,000 units PO DAILY [facility] Last Admin: 08/07/19 08:40 Dose: 1,000 units Cyanocobalamin (Vitamin B12 Tab*) 1,000 mcg PO DAILY [facility] Last Admin: 08/07/19 08:39 Dose: 1,000 mcg Dextrose (D50w Syringe 50 Ml*) 12.5 gm IV PUSH .FOR FS < 60 - SS PRN PRN Reason: FS < 60 Famotidine (Pepcid Tab*) 20 mg PO BID [facility] Last Admin: 08/07/19 10:46 Dose: 20 mg Ferrous Sulfate (Ferrous Sulfate Tab*) 325 mg PO MOWEFR [facility] Last Admin: 08/05/19 16:11 Dose: 325 mg Gabapentin (Neurontin Cap(*)) 300 mg PO BID [facility] Last Admin: 08/07/19 08:40 Dose: 300 mg Sodium Chloride (Ns 0.9% 1000 Ml) 1,000 mls @ 100 mls/hr IV PER RATE [facility] Last Admin: 08/07/19 05:46 Dose: 100 mls/hr Vancomycin HCl 1,500 mg/ (Sodium Chloride) 250 mls @ 166.667 mls/hr IVPB Q24H [facility] Last Admin: 08/06/19 16:25 Dose: 166.667 mls/hr Insulin Human Lispro (Humalog*) 0 units SUBCUT AC [facility]; Protocol Last Admin: 08/07/19 12:41 Dose: 6 units Metoprolol Succinate (Toprol Xl Tab*) 25 mg PO DAILY [facility] Last Admin: 08/07/19 08:40 Dose: 25 mg Mometasone Furoate/Formoterol Fumar (Dulera 200/5 Mdi*) 2 puff INH BID [facility]; Protocol Last Admin: 08/07/19 07:19 Dose: 2 puff Montelukast Sodium (Singulair Tab*) 10 mg PO DAILY [facility] Last Admin: 08/07/19 08:40 Dose: 10 mg Multivitamins/Minerals (Theragran/Minerals Tab*) 1 tab PO DAILY [facility] Last Admin: 08/07/19 08:40 Dose: 1 tab Pharmacy Consult (Vancomycin Per Pharmacy*) 1 note FOLLOW UP .VANC PER PHARMACY [facility]; Protocol Pharmacy Profile Note (Vancomycin Trough Check) 1 note FOLLOW UP 1530 ONE Stop: 08/07/19 15:31 Sodium Bicarbonate (Sodium Bicarbonate (Antacid)*) 1,300 mg PO BID [facility] Last Admin: 08/07/19 08:40 Dose: 1,300 mg Vital Signs - 8 hr 08/07/19 08/07/19 08/07/19 07:15 07:55 08:40 Temperature 98.6 F Pulse Rate 67 Respiratory 16 16 16 Rate Blood Pressure 128/65 (mmHg) O2 Sat by Pulse 100 100 Oximetry 08/07/19 08/07/19 10:45 10:52 Temperature 96.8 F Pulse Rate 83 Respiratory 16 16 Rate Blood Pressure 142/68 (mmHg) O2 Sat by Pulse 98 Oximetry Oxygen Devices in Use Now: None Appearance: A+O x3 74 yo male in NAD. Very talkative, appropriate Eyes: No Scleral Icterus Ears/Nose/Mouth/Throat: Mucous Membranes Moist Neck: NL Appearance and Movements; NL JVP Respiratory: Symmetrical Chest Expansion and Respiratory Effort, Clear to Auscultation Cardiovascular: NL Sounds; No Murmurs; No JVD, RRR, No Edema Abdominal: - - big, round, obese. Erythema noted mid-lower abdomeinal wall, warm. no open areas. nontender Extremities: No Edema, No Clubbing, Cyanosis Skin: No Nodules or Sclerosis Neurological: Alert and Oriented x 3, NL Sensation, NL Gait, NL Muscle Strength and Tone Lines/Tubes/Other Access: Clean, Dry and Intact Peripheral IV Nutrition: Taking PO's Result Diagrams: 08/07/19 05:46 08/07/19 05:46 Microbiology and Other Data: Microbiology 08/04/19 13:00 Aerobic Blood Culture - Preliminary Blood Venous No Growth Day 1 Anaerobic Blood Culture - Preliminary No Growth Day 1 08/04/19 13:00 Aerobic Blood Culture - Preliminary Blood Venous No Growth Day 1 Anaerobic Blood Culture - Preliminary No Growth Day 1 Assess/Plan/Problems-Billing Assessment: Patient is a 74 yo male with a PMH of ileal conduit, UTIs, asthma, CAD s/p stent, CKD stage 3, hx of cancer, diabetic neuropathy who was admitted with fever, redness/warmth abdominal wall admitted for cellulitis, also c/o cough testing negative for COVID. - Patient Problems (1) Abdominal wall cellulitis Comment: continue vancomycin goal tr 10-15, follow up with a surgeon as outpatient, mesh in hernia repair per patient, not noted on CT. continue Vancomyacin with plan for IV Infusion as outpatient. ID to see and make recommendations. (2) Sepsis Comment: - source -> abdominal wall cellultis - Resolved (3) Hx of deep venous thrombosis Comment: - Hx of DVT x2 right & left LE's) - On eliquis (4) S/P ileal conduit Comment: - straight caths Q 4 hours (5) Diabetic neuropathy Comment: Continue gabapentin at home dose. (6) CKD (chronic kidney disease) stage 3, GFR 30-59 ml/min Comment: Stage 3 CKD, stable (7) Diabetes mellitus type 2 Comment: Holding glipizide. continue ISS with [facility] ACHS (8) DVT prophylaxis Comment: Toya (9) Full code status Status and Disposition: inpatient. Home when medically stable. Will need to be set up for out patient infusion. case management following
[2019-08-07] MEDS ORDERED: Vancomycin Trough Check NOTE FOLLOW UP ONE (15:30)
[2019-08-07] MEDS: Vancomycin(*) 1,500 MG in NS 0.9% 250 ML* 250 ML IVPB SCH (18:00)
[2019-08-07] MEDS: Ferrous Sulfate TAB* 325 MG PO SCH (18:01)
[2019-08-07 19:09] LABS: C Reactive Protein 43.34 mg/L (<8.01)
[2019-08-07] MEDS: Atorvastatin* 10 MG TAB PO SCH (21:31)
--- NOTE | 2019-08-07 21:47 | CONS ---
CONSULTATION REPORT: DATE OF CONSULT: 08/07/19 PRIMARY CARE PROVIDER: Dr. Prabha Washington. PROVIDER REQUESTING CONSULTATION: Alla Quiñonez NP CONSULTING SERVICE: Infectious Diseases. PROVIDER: Ashley Christy NP ATTENDING PROVIDER: Dr. Terrance Kimbrough MD* (dictated by Ashley Christy NP). REASON FOR CONSULT: Abdominal wall cellulitis. IMPRESSION: 1. Abdominal wall cellulitis. According to the patient, he has a history of hernia mesh in this area after hernia repair approximately 20 years ago. He feels that the erythema is improving but still present. Denies any abdominal pain, currently on vancomycin. It is to note that he had a CT scan of his abdomen and pelvis on admission showing stable postoperative changes of cystectomy with urinary diversion via right lower quadrant ileostomy and neobladder. Chronic mild bilateral hydronephrosis and hydroureter, stable chronic diverticulosis without acute diverticulitis, no abscess seen. There is also no mention of the mesh; the mesh was not seen on the imaging. His initial leukocytosis was elevated. CRP elevated on admission at 22.62. His initial fevers with temperature max of 101.1 in the emergency room have resolved and he has been afebrile for almost 2 days. Blood cultures with no growth to date. 2. Ileal conduit and neobladder. 3. Diabetes mellitus, type 2, with peripheral neuropathy. 4. Chronic kidney disease, stage 3. RECOMMENDATIONS/PLAN: Recommend continuing vancomycin while he is in the hospital. When he is felt to be ready for discharge, the discharge plan will be to have him return the day after discharge for a dose of Dalvance 1500 mg IV once; this will provide 2 weeks of antibiotic coverage. He should follow up with Surgery outpatient. I will add CRP on to today's lab to see if this is trending down. HISTORY OF PRESENT ILLNESS: Mr. Carlton is a 74-year-old male with past medical history significant for coronary artery disease; asthma; diabetes mellitus, type 2; diabetic neuropathy; chronic kidney disease, stage 3; hyperlipidemia; history of prostate cancer, status post resection and radiation ; urostomy placement in 2002. He self-catheterizes every 4 hours for the past 16 years, L3-L5 herniated disk, history of DVT. The patient had been in his usual state of health when he had developed nonproductive cough and fevers with temperature max 102.6 at home. In the setting of cough and fever, he presented to the emergency room for further evaluation. Additionally, the patient had noted that he had had foul-smelling urine starting approximately 1 week prior. While in the emergency room, he had blood cultures. He had an abdomen, pelvis CT showing cystectomy with urinary diversion via the right lower quadrant ileostomy and neobladder, chronic bilateral hydronephrosis and hydroureter, colonic diverticulosis, mild dilation of the mid to distal small bowel loops with air fluid levels, no abscesses in the pelvis or abdomen. He was noted to be febrile with temperature of 101.1 on arrival. He had leukocytosis with white blood cell count of 14,000, elevated ESR of 42, and elevated CRP of 22. Urinalysis with 1+ blood, positive nitrites, leukocyte esterase 3+, wbc's 3+, rbc's 2+, bacteria 1+. He had influenza testing that was negative. He was additionally COVID-19 tested. He was referred to the hospitalist service for admission. While in the hospital, his COVID-19 testing returned undetected. Blood cultures with no growth. Urine culture with Klebsiella aerogenes. Leukocytosis resolved. He was initially on ceftriaxone and vancomycin. Ceftriaxone was discontinued and he remained on vancomycin only. He has had some improvement in the abdominal erythema. Denies fevers, chills, shortness of breath, nausea, vomiting, or diarrhea. He does feel as though he has some constipation. PAST MEDICAL HISTORY: 1. Coronary artery disease, status post stenting. 2. Asthma. 3. Diabetes mellitus, type 2. 4. Diabetic neuropathy. 5. Chronic kidney disease. 6. Hyperlipidemia. 7. History of prostate cancer, status post resection and radiation. 8. L3-L5 disk herniation. 9. History of DVT, on Eliquis. PAST SURGICAL HISTORY: 1. Status post prostatectomy. 2. Status post urostomy with diversion to neobladder. 3. Status post appendectomy. 4. Status post tonsillectomy. MEDICATIONS: Home medications: 1. Albuterol HFA inhaler 1 puff inhalation every 6 hours as needed for shortness of breath or wheeze. 2. Apixaban 5 mg by mouth twice daily. 3. Cranberry 1 tablet by mouth daily. 4. Lactobacillus 1 to 2 tablets by mouth daily. 5. Lisinopril 5 mg by mouth daily. 6. Magnesium glycinate 100 mg by mouth twice daily. 7. Melatonin 10 mg by mouth daily at bedtime. 8. Nitroglycerin 0.4 mg sublingual every 5 minutes as needed for chest pain. 9. Pterostilbene 2 tablets by mouth daily. 10. Aspirin 162 mg by mouth daily. 11. Symbicort 1 to 2 puffs twice daily. 12. Vitamin D3 1000 units by mouth daily. 13. Famotidine 20 mg by mouth twice daily. 14. Ferrous sulfate 325 mg by mouth Saturday, Saturday, Saturday. 15. Gabapentin 300 mg by mouth twice daily. 16. Glipizide 5 mg by mouth every morning. 17. Tradjenta 5 mg by mouth daily. 18. B12 1000 mcg by mouth daily. 19. Metoprolol succinate 25 mg by mouth daily. 20. Singulair 10 mg by mouth daily. 21. Multivitamin 1 tablet by mouth daily. 22. Pravastatin 40 mg by mouth daily. 23. Sodium bicarb 1300 mg by mouth daily. Hospital medications: 1. Acetaminophen 650 mg by mouth every 4 hours as needed for fever or pain. 2. Eliquis 5 mg by mouth twice daily. 3. Aspirin 162 mg by mouth daily. 4. Atorvastatin 10 mg by mouth daily. 5. Vitamin D 1000 units by mouth daily. 6. Vitamin B12 1000 mcg by mouth daily. 7. Dextrose 12.5 g IV push for glucose less than 60. 8. Famotidine 20 mg by mouth twice daily. 9. Ferrous sulfate 325 mg by mouth Saturday, Saturday, Saturday. 10. Gabapentin 300 mg by mouth twice daily. 11. Humalog insulin sliding scale subcutaneous with meals. 12. Metoprolol succinate 25 mg by mouth daily. 13. Dulera 200/5 MDI two puffs inhalation twice daily. 14. Singulair 10 mg by mouth daily. 15. Multivitamin 1 tablet by mouth daily. 16. Sodium bicarbonate 1300 mg by mouth twice daily. 17. Vancomycin 1500 mg IV daily. ALLERGIES: ADHESIVE TAPE, LATEX. FAMILY HISTORY: Father passed in his 70s secondary to an OR and had prediabetes. No family history of cancer. SOCIAL HISTORY: He is a past tobacco user, has quit over 40 years ago, rarely drinks alcohol. Denies recreational drug use. REVIEW OF SYSTEMS: I performed an 10-point review of systems. All the pertinent positives and negatives are mentioned in the history of present illness. The remaining review of systems is negative. PHYSICAL EXAM: Vital Signs: Temperature 96.8, heart rate 83, respiratory rate 16, O2 sat 98% on room air, blood pressure 142/68. General Appearance: Alert, appears to be in no acute distress. Head: Normocephalic, atraumatic. EENT: Extraocular movements are intact. No subconjunctival hemorrhage. Moist mucous membranes. Neck: Supple. No lymphadenopathy. Neurological: Alert and oriented. Cranial nerves II through XII are grossly intact. The patient moves all extremities. Cardiovascular: Regular rate and rhythm. S1, S2 present. No murmurs, rubs, or gallops heard. Respiratory: No accessory muscle use. Lungs are clear to auscultation bilateral. Abdomen: Bowel sounds present. Abdomen is soft, nontender, and nondistended, obese. Extremities: No lower extremity edema. DP and PT pulses are 2+ and symmetric. Musculoskeletal: No clubbing or cyanosis noted, exhibits good strength in all extremities. Psychological: Calm and cooperative. Skin: No rashes seen. The patient is noted to have erythema to the right lower quadrant of the abdomen with slight discomfort with palpation and an area of induration; this is slightly warmer than the remaining abdomen. There is no drainage. DIAGNOSTIC STUDIES/LAB DATA: Sodium 139, potassium 4.5, chloride 112, CO2 21, BUN 26, creatinine 1.59, and glucose 132. White blood cell count 7.4, hemoglobin 11.4, hematocrit 34, platelet count 203. Please see impression and recommendations outlined above, recommendations have been discussed with Alla Quiñonez NP. Thank you for asking us to see Mr. Carlton in consultation. The case has been discussed with my attending, Dr. Terrance Kimbrough, who agrees with the plan of care. Reviewed by ASHLEY CHRISTY, LUCIA 08/11/19 [id number]/[facility] #: [id number] MTDD
[2019-08-08] MEDS: Acetaminophen TAB* 325 MG PO PRN (05:29)
[2019-08-08] MEDS: Mometasone/Formoter 200/5 MDI INH SCH ×3 (06:49→20:47)
[2019-08-08] MEDS: Gabapentin CAP(*) 300 MG PO SCH ×2 (08:44→22:51)
[2019-08-08] MEDS: Sodium Bicarbonate (ANTACID)* 650 MG TAB PO SCH ×2 (08:44→22:53)
[2019-08-08] MEDS: Aspirin EC TAB* 81 MG TAB.EC PO SCH (08:44)
[2019-08-08] MEDS: Famotidine TAB* 20 MG PO SCH ×2 (08:45→22:52)
[2019-08-08] MEDS: Cholecalciferol TAB* 1000 UNITS PO SCH (08:45)
[2019-08-08] MEDS: Multivitamins/Minerals TAB PO SCH (08:45)
[2019-08-08] MEDS: Metoprolol Succinate XL TAB* 25 MG PO SCH (08:45)
[2019-08-08] MEDS: Montelukast Sodium TAB* 10 MG PO SCH (08:45)
[2019-08-08] MEDS: Apixaban* 5 MG TAB PO SCH ×2 (08:45→22:52)
[2019-08-08] MEDS: Cyanocobalamin TAB* 500 MCG PO SCH (08:45)
[2019-08-08] MEDS: Insulin LISPRO* 1 UNITS UNIT SUBCUT SCH ×3 (08:48→17:29)
--- NOTE | 2019-08-08 10:07 | PN ---
Subjective Date of Service: 08/08/19 Interval History: Patient reports he is feeling better everyday. continues to have noted redness on lower abdomen but improving daily. denies any fever or chills. Reports good appetite. feels steady on his feet. Weakness is resolved. Spoke to over phone in patients room - 3 way discussion. is a researcher - she is concerned the CT may not pick up man the mesh and requests an ultrasound. They do not remember the surgeons name who did the surgery; they both do remember that he did have mesh placed but cant be positive Objective Active Medications: Acetaminophen (Tylenol Tab*) 650 mg PO Q4H PRN PRN Reason: MILD PAIN or TEMP > 100.4 Last Admin: 08/08/19 05:29 Dose: 650 mg Apixaban (Eliquis*) 5 mg PO BID [facility] Last Admin: 08/08/19 08:45 Dose: 5 mg Aspirin (Aspirin Ec Tab*) 162 mg PO DAILY [facility] Last Admin: 08/08/19 08:44 Dose: 162 mg Atorvastatin Calcium (Lipitor*) 10 mg PO BEDTIME [facility]; Protocol Last Admin: 08/07/19 21:31 Dose: 10 mg Cholecalciferol (Vitamin D Tab*) 1,000 units PO DAILY [facility] Last Admin: 08/08/19 08:45 Dose: 1,000 units Cyanocobalamin (Vitamin B12 Tab*) 1,000 mcg PO DAILY [facility] Last Admin: 08/08/19 08:45 Dose: 1,000 mcg Dextrose (D50w Syringe 50 Ml*) 12.5 gm IV PUSH .FOR FS < 60 - SS PRN PRN Reason: FS < 60 Famotidine (Pepcid Tab*) 20 mg PO BID [facility] Last Admin: 08/08/19 08:45 Dose: 20 mg Ferrous Sulfate (Ferrous Sulfate Tab*) 325 mg PO MOWEFR [facility] Last Admin: 08/07/19 18:01 Dose: 325 mg Gabapentin (Neurontin Cap(*)) 300 mg PO BID [facility] Last Admin: 08/08/19 08:44 Dose: 300 mg Vancomycin HCl 1,500 mg/ (Sodium Chloride) 250 mls @ 166.667 mls/hr IVPB Q24H [facility] Last Admin: 08/07/19 18:00 Dose: 166.667 mls/hr Insulin Human Lispro (Humalog*) 0 units SUBCUT AC [facility]; Protocol Last Admin: 08/08/19 08:48 Dose: 1 units Metoprolol Succinate (Toprol Xl Tab*) 25 mg PO DAILY [facility] Last Admin: 08/08/19 08:45 Dose: 25 mg Mometasone Furoate/Formoterol Fumar (Dulera 200/5 Mdi*) 2 puff INH BID [facility]; Protocol Last Admin: 08/08/19 07:48 Dose: Not Given Montelukast Sodium (Singulair Tab*) 10 mg PO DAILY [facility] Last Admin: 08/08/19 08:45 Dose: 10 mg Multivitamins/Minerals (Theragran/Minerals Tab*) 1 tab PO DAILY [facility] Last Admin: 08/08/19 08:45 Dose: 1 tab Pharmacy Consult (Vancomycin Per Pharmacy*) 1 note FOLLOW UP .VANC PER PHARMACY [facility]; Protocol Sodium Bicarbonate (Sodium Bicarbonate (Antacid)*) 1,300 mg PO BID [facility] Last Admin: 08/08/19 08:44 Dose: 1,300 mg Vital Signs - 8 hr 08/08/19 08/08/19 08/08/19 03:28 07:54 08:44 Temperature 98.3 F 97.2 F Pulse Rate 69 67 Respiratory 15 20 20 Rate Blood Pressure 139/65 124/62 (mmHg) O2 Sat by Pulse 98 97 Oximetry Oxygen Devices in Use Now: None Appearance: A+O x3 in NAD. Appropriate. Pleasant Eyes: No Scleral Icterus Ears/Nose/Mouth/Throat: NL Teeth, Lips, Gums, Mucous Membranes Moist Neck: NL Appearance and Movements; NL JVP Respiratory: Symmetrical Chest Expansion and Respiratory Effort, Clear to Auscultation Cardiovascular: NL Sounds; No Murmurs; No JVD, RRR, No Edema Abdominal: - - large, round, soft nontender. Erythema noted on lower mid abdomen spreading across lower quadrant' appears improved from yesterday Neurological: Alert and Oriented x 3, NL Sensation, NL Gait, NL Muscle Strength and Tone Lines/Tubes/Other Access: Clean, Dry and Intact Peripheral IV Nutrition: Taking PO's Result Diagrams: 08/07/19 05:46 08/07/19 05:46 Microbiology and Other Data: Microbiology 08/04/19 13:00 Aerobic Blood Culture - Preliminary Blood Venous No Growth Day 1 Anaerobic Blood Culture - Preliminary No Growth Day 1 08/04/19 13:00 Aerobic Blood Culture - Preliminary Blood Venous No Growth Day 1 Anaerobic Blood Culture - Preliminary No Growth Day 1 Assess/Plan/Problems-Billing Assessment: Patient is a 74 yo male with a PMH of ileal conduit, UTIs, asthma, CAD s/p stent, CKD stage 3, hx of cancer, diabetic neuropathy who was admitted with fever, redness/warmth abdominal wall admitted for cellulitis, also c/o cough testing negative for COVID. - Patient Problems (1) Abdominal wall cellulitis Comment: Improving continue vancomycin goal tr 10-15, follow up with a surgeon as outpatient (Dr. Stack recommended [place] or [place]), mesh in hernia repair per patient, not noted on CT. I do think it is reasonable to get an abdominal ultrasound - ordered for today. continue Vancomyacin with plan for IV Infusion as outpatient the day after discharge. Appreciate ID consult - please see their note for plan Tenative plan for DC home tomorrow and Infusion clinic on saturday follow up w/ Dr. Benjamin this week refer to surgeon in [place] or [place] per Dr. Benjamin - however patient and would like to f/u with Dr. Benjamin this week prior to being referred. If he does need to have this mesh removed they report they would go out of this area for the surgery. CRP up yesterday; plan to repeat labs in am (2) Sepsis Comment: - source -> abdominal wall cellultis - Resolved (3) Hx of deep venous thrombosis Comment: - Hx of DVT x2 (right & left LE's) - On eliquis (4) S/P ileal conduit Comment: - straight caths Q 4 hours (5) Diabetic neuropathy Comment: Continue gabapentin at home dose. (6) CKD (chronic kidney disease) stage 3, GFR 30-59 ml/min Comment: Stage 3 CKD, stable (7) Diabetes mellitus type 2 Comment: Holding glipizide. continue ISS with [facility] ACHS (8) DVT prophylaxis Comment: Eliquis (9) Full code status Status and Disposition: inpatient. Home when medically stable - possibly Saturday with plan for Saturday infusion. case management following
[2019-08-08] MEDS ORDERED: Senna TAB 8.6 mg* TAB PO PRN (10:13)
[2019-08-08] MEDS ORDERED: Ferrous Sulfate TAB* 325 MG PO ONE (10:13)
[2019-08-08] MEDS: Vancomycin(*) 1,500 MG in NS 0.9% 250 ML* 250 ML IVPB SCH (16:25)
[2019-08-08] MEDS: Atorvastatin* 10 MG TAB PO SCH (22:52)
[2019-08-09 04:39] LABS: ABS Eosinophils 0.4 10^3/ul (0-0.6); ABS Lymphocytes 1.6 10^3/ul (1.0-4.8); ABS Monocytes 0.8 10^3/ul (0-0.8); ABS Neutrophils 3.7 10^3/ul (1.5-7.7); Eosinophil % 6.8 %; Hematocrit 31 % (42-52); Hemoglobin 10.7 g/dL (14.0-18.0); Lymphocyte % 23.9 %; Mean Corpuscular HGB Conc 35 g/dL (31-36); Mean Corpuscular Hemoglobin 30 pg (27-31); Mean Corpuscular Volume 86 fL (80-94); Mean Platelet Volume 7.2 fL (7.4-10.4); Platelet Count 216 10^3/uL (150-450); Red Blood Count 3.58 10^6 /uL (4.18-5.48); Red Cell Distribution Width 14 % (10-15); White Blood Count 6.5 10^3/uL (3.5-10.8)
[2019-08-09 04:55] LABS: C Reactive Protein 20.36 mg/L (<8.01); Calcium 8.9 mg/dL (8.6-10.3); EGFR African American 52.3 (>60); EGFR Non-African American 43.2 (>60); Potassium 4.3 mmol/L (3.5-5.0)
[2019-08-09] MEDS: Mometasone/Formoter 200/5 MDI INH SCH ×2 (07:57→19:22)
[2019-08-09] MEDS: Montelukast Sodium TAB* 10 MG PO SCH (08:09)
[2019-08-09] MEDS: Multivitamins/Minerals TAB PO SCH (08:09)
[2019-08-09] MEDS: Cyanocobalamin TAB* 500 MCG PO SCH (08:10)
[2019-08-09] MEDS: Gabapentin CAP(*) 300 MG PO SCH (08:10)
[2019-08-09] MEDS: Aspirin EC TAB* 81 MG TAB.EC PO SCH (08:12)
[2019-08-09] MEDS: Sodium Bicarbonate (ANTACID)* 650 MG TAB PO SCH (08:13)
[2019-08-09] MEDS: Apixaban* 5 MG TAB PO SCH (08:13)
[2019-08-09] MEDS: Cholecalciferol TAB* 1000 UNITS PO SCH (08:13)
[2019-08-09] MEDS: Famotidine TAB* 20 MG PO SCH (08:13)
[2019-08-09] MEDS: Metoprolol Succinate XL TAB* 25 MG PO SCH (08:14)
[2019-08-09] MEDS: Insulin LISPRO* 1 UNITS UNIT SUBCUT SCH ×3 (08:15→17:18)
[2019-08-09] MEDS ORDERED: Magnesium Oxide TAB* 400 MG PO SCH (09:00)
[2019-08-09] MEDS: Vancomycin(*) 1,500 MG in NS 0.9% 250 ML* 250 ML IVPB SCH (15:43)
[2019-08-09 16:42] VITALS: BP 123/57
--- NOTE | 2019-08-10 03:02 | DS ---
CC: Dr. Carcamo* DISCHARGE SUMMARY: DATE OF ADMISSION: 08/04/19 DATE OF DISCHARGE: 08/09/19 ATTENDING PHYSICIAN: Dr. Garces* (dictated by Monty Canales NP). PRIMARY CARE PHYSICIAN: Dr. Carcamo. CONSULTING PROVIDER: Yadira Alvarez NP, with Infectious Disease. PRIMARY DIAGNOSIS: Abdominal cellulitis. SECONDARY DIAGNOSES: 1. Sepsis. 2. Urinary tract infection and urostomy with a history of prostate cancer, status post resection and radiation. 3. Anemia. 4. History of deep venous thrombosis. 5. Diabetes mellitus, type 2, with neuropathy. 6. Chronic kidney disease. 7. Coronary artery disease, status post stenting. HISTORY OF PRESENT ILLNESS AND HOSPITAL COURSE: Mr. Carlton is a 74-year- old male, who presented to the emergency department on 08/04/19 with chief complaint of fever. Also, was complaining of very mild cough. Had a home T- max of 102.6. He was denying pain, shortness of breath, chest pain, abdominal pain, nausea, vomiting, diarrhea. He stated to the ED provider that he felt similar to when he had sepsis in January 2019. It was noted that the patient self-caths at home, has a history of prostate cancer with prostatectomy, chronic renal disease, acute kidney failure, urinary diversion surgery. Past medical history also includes diabetes with neuropathy; coronary artery disease , status post stenting; history of DVTs, on Eliquis; dyslipidemia; history of MN. He had a chest x-ray that showed no evidence for acute disease. He did have a urinalysis that exhibited signs for UTI. He was given Rocephin in the ED. Also given fluids. It was noted that he had cellulitis of the skin of the lower abdomen as well. It is noted per admitting provider's report that the patient has had multiple admissions in the past for cellulitis of the legs. Also noted that the patient gets frequent UTIs. Lab work on arrival showed a white count of 14,000 and mildly elevated troponin of 0.03. He had fever of 101.1, tachycardia of 104. He was admitted to [address] [place] [address] for sepsis, possibly secondary to UTI versus abdominal cellulitis. He was kept on ceftriaxone and azithromycin was added in. It was noted that he did have a prior urine culture from 07/22/19 showing growth of klebsiella. Because of the cellulitis on his abdomen, vancomycin was also added in. Due to his cough and fever, the patient was tested for COVID-19, which ultimately came back negative, also tested for flu A and B which were negative. 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 Chronic mild bilateral hydronephrosis and hydroureter. No abscess in the abdomen or pelvis. The patient's last known fever of 100.1 was on the evening of 08/05/19. Last known tachycardic on 08/04/19. Blood pressures remained stable. Did not appear to require oxygen at any time. Second troponin did show decrease to 0.02. There was a question of whether the abdominal cellulitis was in relation to a mesh that was placed quite a while ago. It was not noted on imaging. The patient and his were unsure if it was absorbable or not. Over the next few days, the patient continued to show improvement. Infectious Disease did consult on 08/07/19 in relation to the abdominal cellulitis. The plan was to continue the vancomycin while the patient remained in the hospital and the day after discharge, he would receive a dose of Dalvance IV x1 and follow up with ID outpatient as well as follow up with his prior abdominal surgeon as an outpatient. CRP initially 22.62 genia to 43.34 by 08/07/19 and then this morning declined back down to 20.36. The patient did show me a picture of his abdomen shortly after beginning treatment and in comparison to what I see today there is great improvement in erythema. His lab work has essentially remained stable, no longer with leukocytosis, mild anemia noted. When he arrived, he did have a creatinine of 1.99, which is near his baseline; however, this morning creatinine down to 1.58, glucose in the low 100s throughout his stay. Chemistry panel upon discharge was stable. I did speak to Dr. Kimbrough prior to discharging this patient about whether to treat the UTI or not. Per his recommendations, I will be not be treating the urinary tract infection at this time. He can follow up with his primary care provider. In relation to this, he will also be having an appointment made this week with Dr. Kimbrough's office. Today, the patient denies any headache, chest pain , shortness of breath, abdominal pain, unusual numbness or tingling. He denies nausea, vomiting. The patient has been tolerating food without any difficulty. States he is urinating quite a bit. States that the urine is very clear and the amount has picked up since he was first admitted. States that he does get a sense of urgency to have a bowel movement and then it is just gas. States that he did have a very small but regular-appearing bowel movement this morning. Stated that the color was a little darker than usual; however, states that the color has been slightly darker than usual since starting iron supplements. I did review this case with Dr. Garces and it was agreed upon that the patient is acceptable for discharge today. STUDIES: Chest x-ray: Impression states no evidence for acute disease. 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 The neobladder is more distended with fluid on the current exam. As previously seen, there was chronic mild bilateral hydronephrosis and hydroureter. Stable colonic diverticulosis without evidence for acute diverticulitis. There is new mild dilatation of mid to distal small bowel loops with air fluid levels, cannot exclude focal ileus or some degree of bowel obstruction. No abscess in the abdomen or pelvis. EKG: Sinus rhythm with a rate of 70 beats per minute. No ST elevations or depressions noted. Abdominal ultrasound: Impression states no appreciable hernia. Finding states normal fatty and muscular tissue was noted. There is no appreciable fat or bowel- containing hernia. LABORATORY DATA: Arrival labs from 08/04/19, WBC 14.0, RBC 4.17, hemoglobin 12.3, hematocrit 36, MCV 86, MCH 29, MCHC 34, RDW 15, platelet count 257, MPV 7.5, absolute neutrophils 11.9, absolute lymphocytes 0.8, absolute monocytes 1.2 , absolute eosinophil 0 as is basal cells 0.1, ESR 42, INR 1.2, aPTT 29.4, fibrinogen 430.6. Sodium 134, potassium 4.8, chloride 105, carbon dioxide 21, anion gap 8, BUN 39 , creatinine 1.99, estimated GFR 33.1, BUN and creatinine ratio 19.6, glucose 133, lactic acid 1.0 and then 1.9, calcium 9.3. Total bilirubin 0.3, AST 22, ALT 19, alk phosphatase 82, total creatine kinase 235. Troponin 0.03 and then 0.02. CRP 22.62. BNP 38. Total protein 7.9, albumin 4.5, globulin 3.4, albumin globulin ratio 1.3. Urine 1+ blood, positive for nitrites, 3+ leukocyte esterase, 3+ wbc's, 2+ rbc's , 1+ bacteria, cloudy in appearance. No other abnormalities noted. COVID-19 PCR result undetected. Influenza A and B negative. Again, CBC has essentially remained stable without leukocytosis starting , does have mild anemia noted. CRP did go up to 43.34 on 08/07/19 and then back down to 20.36 on 08/09/19. Ending BUN and creatinine 30 and 1.58. BUN and creatinine ratio 19. Estimated GFR 43.2. REVIEW OF SYSTEMS: A 12-point review of systems was completed with the patient. Please see HPI for all pertinent positives and negatives. PHYSICAL EXAMINATION: Constitutional: The patient is sitting up in bed, in no acute distress. Last vital signs: Temp 98.5, heart rate 66, respiratory rate 18, O2 sat 95% on room air, BP 123/57. HEENT: PERRL. No scleral icterus noted. Cardiovascular: Regular rate and rhythm. No murmurs, rubs, or gallops. Extremities: No edema. Pedal pulses present 2+ bilaterally. Respiratory: Lung sounds clear throughout bilaterally. Normal respiratory effort. GI: Hyperactive bowel sounds x4. Abdomen: Large, round, nontender to palpation. Ileal conduit opening noted to right lower quadrant. Musculoskeletal: Strength 5/5 to all extremities. Skin: There is very mild somewhat patchy erythema to mid abdominal area. Skin is intact. Neuro: Alert and oriented x3. DISCHARGE PLAN: 1. The patient can continue with diet, low in fat and sugars. 2. No equipment necessary for discharge. 3. Can continue his usual activity level as tolerated. 4. The patient should return to the emergency department with chest pain or unusual shortness of breath, sharp increase in pain, swelling, erythema to abdomen, or any other concern that appear to need immediate attention. All other non- emergent concerns could be deferred to PCP. 5. Abdominal cellulitis. There was a question about the patient still having mesh within the abdomen and wondering if this could potentially be causing this cellulitis to occur. It is likely that the sepsis that the patient arrived with was in relation to this abdominal cellulitis. The patient will be receiving 1 dose of Dalvance via the infusion center tomorrow morning. He will follow up with Infectious Disease later this week. Also, per recommendations of ID, the patient should consult his surgeon that may have implanted the questionable mesh. 6. Sepsis. The patient has remained afebrile for days. Leukocytosis has resolved. Tachycardia also resolved. The patient otherwise doing well and needs no further workup or followup in relation to sepsis. 7. UTI and urostomy with history of prostate cancer, status post resection and radiation. Again, I did speak to Dr. Kimbrough about whether to treat the UTI or not and it was decided to not treat the urinary tract infection at this point. The patient should continue self-cathing as he usually does. He should follow up with his primary care provider within 1 to 2 weeks. If he starts feeling similar to how he did prior to admission, he should come back to the emergency department. 8. Anemia. The patient did present with mild anemia. It has remained rather stable. It does appear this is a longstanding issue for him consistently dating back to 2017 with prior episodes of anemia in 2014 and 2013. He did have a colonoscopy last in 2018. I did order a CBC to be drawn in 1 week hopefully prior to his appointment with his PCP. He should follow up with PCP about this issue. He does have chronic kidney disease. 9. History of DVT. The patient will continue on home dosing of Eliquis and follow up with primary care. 10. Diabetes mellitus, type 2, with neuropathy. The patient should continue home meds of glipizide and linagliptin for diabetes control as well as gabapentin in relation to neuropathy. He should follow up with PCP. 11. Chronic kidney disease. Creatinine 1.58, BUN 30, estimated GFR 43.2 prior to discharge, values are near if not better than what appears to his baseline. He should follow up with PCP about this condition. It appears that the patient may have seen Dr. Canales in the past. He should be referred back to Nephrology at discretion of PCP at this time. 12. Coronary artery disease, status post stenting. The patient should continue metoprolol, statin, aspirin, and nitro p.r.n. He should follow up with PCP and Cardiology followup per PCP. MEDICATIONS AT DISCHARGE: 1. Magnesium glycinate 100 mg p.o. b.i.d. 2. Pterostilbene 2 tabs p.o. daily. 3. Nitroglycerin 0.4 mg sublingual q.5 minutes p.r.n. 4. Albuterol sulfate 90 mcg inhaled q.6 hours p.r.n. 5. Pravastatin 40 mg p.o. q.p.m. 6. Metoprolol succinate XL 25 mg p.o. daily. 7. Lisinopril 5 mg p.o. q.a.m. 8. Gabapentin 300 mg p.o. b.i.d. 9. Sodium bicarbonate 1300 mg p.o. b.i.d. 10. Linagliptin 5 mg p.o. daily. 11. Ferrous sulfate 325 mg p.o. Saturday, Saturday, and Saturday. 12. Glipizide XL 5 mg p.o. q.a.m. 13. Multivitamins and minerals 1 tab p.o. daily. 14. Montelukast sodium 10 mg p.o. daily. 15. Methylcobalamin 1000 mcg sublingual daily. 16. Melatonin 10 mg p.o. at bedtime. 17. Lactobacillus acidophilus 1 to 2 tabs p.o. daily. 18. Famotidine 20 mg p.o. b.i.d. 19. Cranberry concentrate soft gel 1 cap p.o. b.i.d. 20. Cholecalciferol 1000 units p.o. daily. 21. Symbicort 160/4.5 one to two puffs inhaled b.i.d. 22. Aspirin 162 mg p.o. daily. 23. Apixaban 5 mg p.o. b.i.d. CONDITION AT DISCHARGE: Stable. DISPOSITION: Home. TIME SPENT ON THE DISCHARGE: Approximately 70 minutes with about 30 being face- to- face with the patient for interview, exam, interviewing plan of care, also reviewed plan of care with via telephone conference. I did speak to Dr. Garces about this case and plan and she agrees with this plan. MONTY CANALES NP [id number]/[facility] #: [id number]
== END 2019-08-09 18:55 | disposition home or self-care (01) | DRG 720 ==
LOC: ED 12:16 → MED 17:06 → MEDTELE 08-07 13:46
PROVIDERS: ADMIT Internal Medicine; ATTEND Internal Medicine
DX: A41.9 Sepsis, unspecified organism (principal); L03.311 Cellulitis of abdominal wall; I82.409 Acute embolism and thrombosis of unspecified deep veins of unspecified lower extremity; N13.30 Unspecified hydronephrosis; I24.8 Other forms of acute ischemic heart disease; N39.0 Urinary tract infection, site not specified; N13.4 Hydroureter; E11.22 Type 2 diabetes mellitus with diabetic chronic kidney disease; E11.40 Type 2 diabetes mellitus with diabetic neuropathy, unspecified; D64.9 Anemia, unspecified; N18.3 Chronic kidney disease, stage 3 (moderate); R00.0 Tachycardia, unspecified; R05 Cough; R50.9 Fever, unspecified; I25.10 Atherosclerotic heart disease of native coronary artery without angina pectoris; J45.909 Unspecified asthma, uncomplicated; I12.9 Hypertensive chronic kidney disease with stage 1 through stage 4 chronic kidney disease, or unspecified chronic kidney disease; E78.5 Hyperlipidemia, unspecified; B96.1 Klebsiella pneumoniae [K. pneumoniae] as the cause of diseases classified elsewhere; G89.29 Other chronic pain; R74.8 Abnormal levels of other serum enzymes; K57.30 Diverticulosis of large intestine without perforation or abscess without bleeding; Z20.828 Contact with and (suspected) exposure to other viral communicable diseases; Z85.46 Personal history of malignant neoplasm of prostate; Z86.718 Personal history of other venous thrombosis and embolism; Z92.21 Personal history of antineoplastic chemotherapy; Z92.3 Personal history of irradiation; Z95.5 Presence of coronary angioplasty implant and graft; Z93.2 Ileostomy status; Z79.01 Long term (current) use of anticoagulants; Z79.84 Long term (current) use of oral hypoglycemic drugs; Z79.82 Long term (current) use of aspirin; Z79.51 Long term (current) use of inhaled steroids; Z79.899 Other long term (current) drug therapy; Z91.040 Latex allergy status; Z91.048 Other nonmedicinal substance allergy status; Z82.49 Family history of ischemic heart disease and other diseases of the circulatory system; Z87.891 Personal history of nicotine dependence
CPT/HCPCS: 36415; 71045; 74176; 76705; 80048; 80053; 80202; 81003; 81015; 82550; 83605; 83880; 84484; 85025; 85027; 85384; 85610; 85652; 85730; 86140; 87040; 87077; 87086; 87186; 87635; 93005; 94640; 96361; 96365; 99284; A9270-GY; J0696; J3370; U0003